=== PATIENT | female | born 1950 | race Caucasian/White ===

== ENCOUNTER → 2016-05-26 | Outpatient (CLI) | payer MEDICARE ==
--- NOTE | 2016-05-26 09:58 | XR ---
EXAMINATION TYPE: XR chest 2V DATE OF EXAM: 05/26/2016 9:51 AM COMPARISON: NONE HISTORY: COPD per order. TECHNIQUE: Frontal and lateral views of the chest are obtained. FINDINGS: Underlying emphysematous change is present. There is no focal air space opacity, pleural e ffusion, or pneumothorax seen. The cardiac silhouette size is upper limits of normal. The osseous structures are demineralized. Mild multilevel height loss midthoracic vertebra is felt present. Numer ous clips left axillary region are noted. IMPRESSION: Chronic emphysematous change without acute pulmonary process.
--- NOTE | 2016-05-26 11:49 | BD ---
EXAMINATION TYPE: MG DEXA axial skeleton. DATE OF EXAM: 05/26/2016 10:35 AM COMPARISON: CLINICAL HISTORY: Height: 63 Weight: 148.5 FRAX RISK QUESTIONS: Alcohol (3 or more units per day): no Family History (Parent hip fracture): no Glucocorticoids (More than 3mos): no (Ex: prednisone, prednisolone, methylprednisolone, dexamethasone, and hydrocortisone). History of Fracture in Adulthood: yes; wrist & ribs Secondary Osteoporosis: 1. Type 1 Diabetes: no 2. Hyperthyroidism: no 3. Menopause before 45: yes 4. Malnutrition: no 5. Chronic liver disease: no Rheumatoid Arthritis: yes Current Tobacco Use: yes RISK FACTORS HISTORY OF: History of Wrist Fracture: yes When: about 33 years ago Other Fractures : ribs When: about 12 years ago Family History of Osteoporosis: no Drink Alcohol: no Active: somewhat Diet low in dairy products/other sources of calcium: no Postmenopausal woman: yes Take estrogen and/or progesterone medications: no Lost more than 2 inches in height since high school: states was perhaps 65 inches tall at one time Frequent falls: no Poor Health: no Hyperparathyroidism: no Adrenal Insufficiency: no MEDICATIONS: Prednisone or other steroids: no Thyroid Medications: no Osteoporosis Medications: no Additional Medications: calcium & vitamin D Additional History: overactive thyroid-had radioactive iodine treatment, right left shorter than left : hip displacement-due to truck pinning patient by a wall 1985; breat [place] history EXAM MEASUREMENTS: Bone mineral densitometry was performed using the [employer] System. Bone mineral density as measured about the Lumbar spine is: ----- L1-L4(G/cm2): 0.771 T Score Values are as follows: ----- L2: -3.7 ----- L3: -3.7 ----- L4: -3.4 ----- L1-L4: -3.4 Bone mineral density BASELINE Bone mineral density about the R hip (g/cm2): 0.592 Bone mineral density about the L hip (g/cm2): 0.617 T Score values are as follows: -----R Neck: -3.2 -----L Neck: -3.0 -----R Intertrochanter: -3.9 -----L Intertrochanter: -3.1 Bone mineral density BASELINE IMPRESSION: Osteoporosis (T Score less than -2.5) as noted by T Score values at the Lumbar Spine & Bilateral Hip s. There is increased fracture risk and therapy is usually indicated based on age. Re-Screen 1-2 year s. NOTE: T-SCORE=SD OF THE YOUNG ADULT MEAN.
== END | disposition home or self-care (01) ==
LOC: RADBDWWP 09:37
PROVIDERS: ATTEND Family Medicine
DX: M81.0 Age-related osteoporosis without current pathological fracture (principal); M19.90 Unspecified osteoarthritis, unspecified site; J44.0 Chronic obstructive pulmonary disease with (acute) lower respiratory infection
CPT/HCPCS: 71020; 77080

== ENCOUNTER → 2016-11-23 | Outpatient (CLI) | payer MEDICARE ==
--- NOTE | 2016-11-23 12:06 | XR ---
EXAMINATION TYPE: XR foot complete RT DATE OF EXAM: 11/23/2016 CLINICAL HISTORY: pain TECHNIQUE: Frontal, lateral and oblique images of the right foot are obtained. COMPARISON: None. FINDINGS: Minimally displaced fracture involving the base of the proximal phalanx right great toe wit h intra-articular extension. No additional fractures are identified. Soft tissue swelling is noted. T he joint spaces appear within normal limits. The overlying soft tissue appears unremarkable. IMPRESSION: Minimally displaced fracture involving the base of the proximal phalanx right great toe with intra-ar ticular extension. ICD 10 closed FRACTURE, INITIAL EVALUATION
== END | disposition home or self-care (01) ==
LOC: RADXRMAIN 11:33
PROVIDERS: ATTEND Family Medicine
DX: S92.411A Displaced fracture of proximal phalanx of right great toe, initial encounter for closed fracture (principal)

== ENCOUNTER 2017-07-30 18:00 | Observation (INO) | payer MEDICARE ==
[2017-07-30] MEDS ORDERED: KETOROLAC 30 MG/ML 1 ML VIAL IVP STA (18:24)
[2017-07-30] MEDS ORDERED: IPRATROPIUM-ALBUTEROL 3 ML NEB INHALATION STA (18:28)
--- NOTE | 2017-07-30 18:28 | ED ---
Chest Pain HPI - General Source: patient, RN notes reviewed Mode of arrival: wheelchair Limitations: no limitations - History of Present Illness MD Complaint: chest pain <Claudio Oconnor - Last Filed: 07/30/17 18:55> <Pat Buchanan - Last Filed: 07/30/17 20:43> - General Chief Complaint: Chest Pain Stated Complaint: Chest pain, RICHARD Time Seen by Provider: 07/30/17 18:15 - History of Present Illness Initial Comments: This is a 59-year-old female with a history of left mastectomy with No dissection years ago for breast cancer who also is a smoker who presents with complaints of one month of lower sternal chest pain which is much worse today she states is 8 and 9/10 severity does get worse with movement and deep breathing he is somewhat short of breath she has a fevers chills or sweats. No overt weakness to her upper or lower extremities no fevers chills sweats no other symptoms reported at this time. No cough or phlegm production. No other modifying factors at this time patient states she has problems with aspirin that she bleeds easily when she is able take Aleve and other NSAIDs. (Claudio Oconnor) - Related Data Home Medications Medication Instructions Recorded Confirmed Gabapentin [Neurontin] 300 mg PO TID 07/30/17 07/30/17 LORazepam [Ativan] 0.5 mg PO HS 07/30/17 07/30/17 Letrozole [Femara] 2.5 mg PO DAILY 07/30/17 07/30/17 amLODIPine [Norvasc] 10 mg PO DAILY 07/30/17 07/30/17 Allergies Allergy/AdvReac Type Severity Reaction Status Date / Time aspirin Allergy Unknown Verified 07/30/17 19:08 Penicillins Allergy Unknown Verified 07/30/17 18:50 tetanus and diphtheria Allergy Unknown Verified 07/30/17 18:50 toxoids Review of Systems ROS Other: All systems not noted in ROS Statement are negative. <Claudio Oconnor - Last Filed: 07/30/17 18:55> ROS Other: All systems not noted in ROS Statement are negative. <Pat Buchanan - Last Filed: 07/30/17 20:43> ROS Statement: Those systems with pertinent positive or pertinent negative responses have been documented in the HPI. EKG Findings - EKG Results: EKG: interpreted by ERMD, sinus rhythm (Sinus rhythm with sinus arrhythmia the rate was 89 OH interval 126 QRS duration 92 QT since QTC of 374/[address]-T wave changes) <Claudio Oconnor - Last Filed: 07/30/17 18:55> Past Medical History Past Medical History: Cancer, Hypertension Additional Past Medical History / Comment(s): breast ca neuropathy History of Any Multi-Drug Resistant Organisms: None Reported Past Surgical History: Breast Surgery Past Psychological History: No Psychological Hx Reported Smoking Status: Current every day smoker Past Alcohol Use History: None Reported Past Drug Use History: None Reported <Claudio Oconnor - Last Filed: 07/30/17 18:55> General Exam Limitations: no limitations General appearance: alert, anxious Head exam: Present: atraumatic, normocephalic, normal inspection Eye exam: Present: normal appearance, PERRL, EOMI. Absent: scleral icterus, conjunctival injection, periorbital swelling ENT exam: Present: normal exam, mucous membranes moist Neck exam: Present: normal inspection. Absent: tenderness, meningismus, lymphadenopathy Respiratory exam: Present: chest wall tenderness (Reproducible tenderness on the left costochondral margin and xiphoid. No step-off or crepitation.), decreased breath sounds. Absent: respiratory distress, wheezes, rales, rhonchi , stridor Cardiovascular Exam: Present: regular rate, normal rhythm, normal heart sounds. Absent: systolic murmur, diastolic murmur, rubs, gallop, clicks GI/Abdominal exam: Present: soft, normal bowel sounds. Absent: distended, tenderness, guarding, rebound, rigid Extremities exam: Present: normal inspection, full ROM, normal capillary refill. Absent: tenderness, pedal edema, joint swelling, calf tenderness Back exam: Present: normal inspection Neurological exam: Present: alert, oriented X3, CN II-XII intact Psychiatric exam: Present: normal affect, normal mood Skin exam: Present: warm, dry, intact, normal color. Absent: rash <Claudio Oconnor - Last Filed: 07/30/17 18:55> <Pat Buchanan - Last Filed: 07/30/17 20:43> - General Exam Comments Initial Comments: This is a well-developed well-nourished awake alert oriented 3 female (Elvin Claudio) Course <Claudio Oconnor - Last Filed: 07/30/17 18:55> <Pat Buchanan - Last Filed: 07/30/17 20:43> Vital Signs 07/30/17 07/30/17 07/30/17 18:04 18:51 19:03 Temperature 97.3 F L Pulse Rate 94 78 84 Respiratory 18 Rate Blood Pressure 185/79 O2 Sat by Pulse 97 Oximetry H and was reassessed, white count is slightly elevated 12.9, d-dimer is negative amylase is 118 lipase is 399 troponin is negative blood pressure is 185 /77 considering her multiple risk factors including her age and hypertension and smoking she will COME in for 3 sets of cardiac markers and cardiology consult and now mild pancreatitis will do inpatient ultrasound of the pancreas as well as the liver patient be admitted under angelo Puente service (Pat Buchanan ) - Reevaluation(s) Reevaluation #1: 07/30/17 18:55 The patient's care will be endorsed to Dr. Buchanan at our shift change at 7 PM ( Claudio Oconnor) Disposition <Claudio Oconnor - Last Filed: 07/30/17 18:55> <Pat Buchanan - Last Filed: 07/30/17 20:43> Clinical Impression: Chest pain, Pancreatitis Disposition: ADMITTED IP TO THIS HOSP Condition: Good Referrals: Elvin Mcclain DO [Primary Care Provider] - 1-2 days
[2017-07-30 18:48] LABS: Basophils # (A) 0.1 k/uL (0-0.2); Basophils % (A) 1 %; Eosinophils # (A) 0.2 k/uL (0-0.7); Eosinophils % (A) 2 %; HGB 13.7 gm/dL (11.4-16.0); Lymphocytes # (A) 3.6 k/uL (1.0-4.8); Lymphocytes % (A) 28 %; MCH 28.3 pg (25.0-35.0); MCHC 32.7 g/dL (31.0-37.0); MCV 86.5 fL (80.0-100.0); Mean Platelet Volume 6.3; Monocytes # (A) 0.8 k/uL (0-1.0); Monocytes % (A) 6 %; Neutrophils % (A) 62 %; Platelet Count 425 k/uL (150-450); RBC 4.85 m/uL (3.80-5.40); RDW 15.3 % (11.5-15.5); WBC 12.9 k/uL (3.8-10.6)
[2017-07-30 18:57] LABS: ALT 21 U/L (9-52); AST 16 U/L (14-36); Albumin 4.4 g/dL (3.5-5.0); Alkaline Phosphatase 90 U/L (38-126); Amylase 118 U/L (30-110); Anion Gap 14 mmol/L; Blood Urea Nitrogen 16 mg/dL (7-17); Calcium 9.9 mg/dL (8.4-10.2); Carbon Dioxide 24 mmol/L (22-30); Chloride 105 mmol/L (98-107); Glucose 106 mg/dL (74-99); Lipase 399 U/L (23-300); Magnesium 1.9 mg/dL (1.6-2.3); Potassium 3.8 mmol/L (3.5-5.1); Sodium 143 mmol/L (137-145); Total Bilirubin 0.3 mg/dL (0.2-1.3); Total Protein 7.1 g/dL (6.3-8.2)
[2017-07-30 19:02] LABS: D-Dimer 0.39 mg/L FEU (<0.60); Partial Thromboplastin Time 23.6 sec (22.0-30.0); Prothrombin Time 9.5 sec (9.0-12.0)
[2017-07-30 19:10] LABS: Creatine Kinase 34 U/L (30-135)
[2017-07-30 19:20] LABS: Creatine Kinase MB 0.4 ng/mL (0.0-2.4)
[2017-07-30 19:24] LABS: Troponin I <0.012 ng/mL (0.000-0.034)
--- NOTE | 2017-07-30 20:26 | XR ---
EXAMINATION TYPE: XR chest 2V DATE OF EXAM: 07/30/2017 COMPARISON: 05/26/2016 HISTORY: 67-year-old female with chest pain TECHNIQUE: AP and lateral views FINDINGS: The heart is normal size. Aorta within normal limits. Mild diffuse interstitial prominence. Multiple surgical clips at the left axilla. Hyperinflation with flattening of the hemidiaphragms. No consolida tion or pleural effusion. IMPRESSION: COPD. No acute process seen.
[2017-07-30] MEDS ORDERED: NITROGLYCERIN SL TABS 0.4 MG TAB SUBLINGUAL PRN (20:44)
[2017-07-30] MEDS ORDERED: MORPHINE SULFATE 4 MG/0.8 ML SYRINGE (INJ) IVP PRN (20:44)
[2017-07-30] MEDS ORDERED: NICOTINE 21MG/24HR PATCH TRANSDERM STA (20:46)
[2017-07-30] MEDS ORDERED: ATORVASTATIN 40 MG TAB PO SCH (21:00)
[2017-07-30] MEDS ORDERED: LORazepam 0.5 MG TAB PO SCH (21:00)
[2017-07-30 21:53] VITALS: BMI 23.1
[2017-07-30] MEDS: GABAPENTIN 300 MG CAP PO SCH (22:19)
[2017-07-31 01:57] LABS: Creatine Kinase 27 U/L (30-135)
[2017-07-31 01:58] LABS: Cholesterol 194 mg/dL (<200); HDL Cholesterol 52 mg/dL (40-60); LDL Cholesterol,Calculated 127 mg/dL (0-99); Triglycerides 73 mg/dL (<150)
[2017-07-31 02:09] LABS: Creatine Kinase MB 0.3 ng/mL (0.0-2.4); Troponin I <0.012 ng/mL (0.000-0.034)
[2017-07-31 07:35] LABS: Creatine Kinase 29 U/L (30-135)
[2017-07-31 07:47] LABS: Creatine Kinase MB <0.2 ng/mL (0.0-2.4); Troponin I <0.012 ng/mL (0.000-0.034)
--- NOTE | 2017-07-31 08:11 | US ---
EXAMINATION TYPE: US abdomen limited DATE OF EXAM: 07/31/2017 COMPARISON: NONE CLINICAL HISTORY: pain in the Epigastric area. EXAM MEASUREMENTS: Liver Length: 15.4 cm Gallbladder Wall: 0.1 cm CBD: 0.3 cm Right Kidney: 11.5 x 3.8 x 5.3 cm Limited due to bowel gas. Pancreas: wnl Liver: wnl Gallbladder: Echogenic foci along lumen wall likely a polyp measuring 0.5 x 0.3 x 0.3 cm Evidence for sonographic Amor's sign: No CBD: wnl Right Kidney: wnl Limited views of the pancreas are normal. The liver is normal in size without biliary dilatation. There is a 5 mm polyp within the gallbladder. There is no evidence of cholelithiasis. The gallbladder wall measures 1.4 mm. The distal common hepatic duct measures 3.4 mm. The right kidney is normal. IMPRESSION: PROBABLE GALLBLADDER POLYP.
--- NOTE | 2017-07-31 08:55 | P.CRDCN ---
History of Present Illness Consult date: 07/31/17 Requesting physician: Diego Serrano Consult reason: chest pain Chief complaint: Chest pain History of present illness: This is a 67-year-old female with history of recent hypertension diagnosis, nondiabetic, no hyperlipidemia, nicotine dependence, family history of premature coronary artery disease, prior history of breast cancer 11 years ago who presents to the hospital with symptoms of chest pain. According to the patient she's been experiencing intermittent pain in her chest for the past one to 2 months. Pain worsens significantly when the patient takes a deep breath. She denies any associated nausea or diaphoresis. EKG on arrival here shows a normal sinus rhythm with no acute changes. Chest x-ray shows COPD. Ultrasound of the abdomen and gallbladder was performed which revealed a probable gallbladder polyp. No evidence of cholelithiasis. Blood pressure 130/70, heart rate in the 70s, 95% on room air. White blood cell count on admission 12.9, hemoglobin 13.7, platelet count 425. D-dimer 0.39. Sodium 143, potassium 3.8, BUN 16, creatinine 0.6. Troponins are negative 3, BNP level 208 , cholesterol 194, LDL 127, triglycerides 73, HDL 52. AST and ALT are normal. Amylase 118, lipase 399. At the time of my examination this morning, patient continues to have sharp stabbing chest pain, but only when she takes a deep breath. Past Medical History Past Medical History: Cancer, Hypertension Additional Past Medical History / Comment(s): breast ca neuropathy History of Any Multi-Drug Resistant Organisms: None Reported Past Surgical History: Breast Surgery, Hysterectomy Past Anesthesia/Blood Transfusion Reactions: No Reported Reaction Past Psychological History: No Psychological Hx Reported Smoking Status: Current every day smoker Past Alcohol Use History: None Reported Past Drug Use History: None Reported Medications and Allergies Home Medications Medication Instructions Recorded Confirmed Type Gabapentin [Neurontin] 300 mg PO TID 07/30/17 07/30/17 History LORazepam [Ativan] 0.5 mg PO HS 07/30/17 07/30/17 History Letrozole [Femara] 2.5 mg PO DAILY 07/30/17 07/30/17 History amLODIPine [Norvasc] 10 mg PO DAILY 07/30/17 07/30/17 History Allergies Allergy/AdvReac Type Severity Reaction Status Date / Time aspirin Allergy Unknown Verified 07/30/17 19:08 Penicillins Allergy Unknown Verified 07/30/17 18:50 tetanus and diphtheria Allergy Unknown Verified 07/30/17 18:50 toxoids Physical Exam Vitals: Vital Signs Temp Pulse Pulse Resp BP BP Pulse Ox 07/31/17 04:00 98.5 F 77 18 132/71 95 07/31/17 02:20 98.3 F 66 16 135/72 97 07/30/17 22:44 84 16 07/30/17 21:30 97.8 F 94 16 144/74 95 07/30/17 20:52 91 16 142/81 95 07/30/17 19:03 84 07/30/17 18:51 78 07/30/17 18:04 97.3 F L 94 18 185/79 97 Intake and Output 07/30/17 07/31/17 07/31/17 22:59 06:59 14:59 Other: Voiding Method Toilet Toilet # Voids 1 1 Weight 61.1 kg 61.1 kg PHYSICAL EXAMINATION: HEENT: Head is atraumatic, normocephalic. Pupils equal, round. Neck is supple. There is no elevated jugular venous pressure. Bilateral carotid bruits are audible. HEART EXAMINATION: Heart S1, S2 soft systolic murmur is heard. CHEST EXAMINATION: Lungs are clear to auscultation and precussion. No chest wall tenderness is noted on palpation or with deep breathing. ABDOMEN: Soft, mild tenderness at the xiphoid area. Bowel sounds are heard. No organomegaly noted. EXTREMITIES: 2+ peripheral pulses with trace evidence of peripheral edema and no calf tenderness noted. NEUROLOGIC patient is awake, alert and oriented -3. . Results 07/30/17 18:37 07/30/17 18:37 Cardiac Enzymes 07/30/17 07/30/17 07/31/17 Range/Units 18:37 18:37 01:11 AST 16 (14-36) U/L CK-MB (CK-2) 0.4 0.3 (0.0-2.4) ng/mL Troponin I <0.012 <0.012 (0.000-0.034) ng/mL 07/31/17 Range/Units 06:19 AST (14-36) U/L CK-MB (CK-2) <0.2 (0.0-2.4) ng/mL Troponin I <0.012 (0.000-0.034) ng/mL Coagulation 07/30/17 Range/Units 18:37 PT 9.5 (9.0-12.0) sec APTT 23.6 (22.0-30.0) sec Lipids 07/31/17 Range/Units 01:11 Triglycerides 73 (<150) mg/dL Cholesterol 194 (<200) mg/dL HDL Cholesterol 52 (40-60) mg/dL CBC 07/30/17 Range/Units 18:37 WBC 12.9 H (3.8-10.6) k/uL RBC 4.85 (3.80-5.40) m/uL Hgb 13.7 (11.4-16.0) gm/dL Hct 42.0 (34.0-46.0) % Plt Count 425 (150-450) k/uL Comprehensive Metabolic Panel 07/30/17 Range/Units 18:37 Sodium 143 (137-145) mmol/L Potassium 3.8 (3.5-5.1) mmol/L Chloride 105 (98-107) mmol/L Carbon Dioxide 24 (22-30) mmol/L BUN 16 (7-17) mg/dL Creatinine 0.60 (0.52-1.04) mg/dL Glucose 106 H (74-99) mg/dL Calcium 9.9 (8.4-10.2) mg/dL AST 16 (14-36) U/L ALT 21 (9-52) U/L Alkaline Phosphatase 90 (38-126) U/L Total Protein 7.1 (6.3-8.2) g/dL Albumin 4.4 (3.5-5.0) g/dL Current Medications Generic Name Dose Route Start Last Admin Trade Name Freq PRN Reason Stop Dose Admin Amlodipine Besylate 10 mg 07/31/17 09:00 Norvasc PO DAILY [facility] Atorvastatin Calcium 40 mg 07/30/17 21:00 07/30/17 22:19 Lipitor PO Not Given HS MALA Gabapentin 300 mg 07/30/17 22:00 07/30/17 22:19 Neurontin PO Not Given TID MALA Letrozole 2.5 mg 07/31/17 09:00 Femara PO DAILY MALA Lisinopril 10 mg 07/31/17 09:00 Zestril PO DAILY MALA Lorazepam 0.5 mg 07/30/17 21:00 07/30/17 22:18 Ativan PO 0.5 mg HS MALA Administration Morphine Sulfate 2 mg 07/30/17 20:44 Morphine Sulfate (Inj) IVP Q5M PRN Chest Pain Nitroglycerin 0.4 mg 07/30/17 20:44 Nitrostat SUBLINGUAL Q5M PRN Chest Pain Intake and Output 07/30/17 07/31/17 07/31/17 22:59 06:59 14:59 Other: Voiding Method Toilet Toilet # Voids 1 1 Weight 61.1 kg 61.1 kg 07/30/17 18:37 07/30/17 18:37 EKG Interpretations (text) EKG shows a normal sinus rhythm with no acute changes. Assessment and Plan Plan: Assessment and plan #1 chest pain, pleuritic in nature, atypical for acute coronary syndrome. Troponins are negative 3. EKG shows normal sinus rhythm with no acute changes. D-dimer negative. #2 hypertension, recently diagnosed, patient started on Norvasc #3 nicotine dependence #4 history of breast cancer 11 years ago #5 cardiac risk factors negative for diabetes or hyperlipidemia #6 family history of premature coronary artery disease in her brother and father. Plan We will obtain an echocardiogram with Doppler study. He recommended the patient undergo stress test in the morning to rule out underlying coronary artery disease, pacemaker. Pleuritic in nature atypical for ACS. Further recommendations to follow. DNP note has been reviewed, I agree with a documented findings and plan of care. Patient was seen and examined.
[2017-07-31 08:56] VITALS: BP 127/67; PULSE 76; RESP 14; TEMP 98.1
[2017-07-31] MEDS ORDERED: LISINOPRIL 10 MG TAB PO SCH (09:00)
[2017-07-31] MEDS ORDERED: amLODIPine 10 MG TAB PO SCH (09:00)
[2017-07-31] MEDS ORDERED: LETROZOLE 2.5 MG TAB PO SCH (09:00)
[2017-07-31] MEDS: GABAPENTIN 300 MG CAP PO SCH (10:00)
--- NOTE | 2017-07-31 10:12 | P.HPIM ---
History of Present Illness H&P Date: 07/31/17 Chief Complaint: chest pain. This is a history and physical and discharge summary. This is a 67-year-old female one of Dr. Mcclain with a previous medical history significant for hypertension and hypertensive cardio vascular disease with left ventricular hypertrophy, history of breast cancer that was diagnosed back in 2006 status post a left mastectomy with lymph node dissection followed by chemotherapy at that time, history of chronic tobacco use and dependence, patient presented to the emergency department at [facility] yesterday because of severe pain in the chest radiated to the back associated with breathing patient stated that she's been having this pain on and off for the past 2 months, and the she used to have pain around her sternum and she is to go to the chiropractor to fix that however this time the pain was severe she ended up coming to the ER for evaluation had a twelve-lead EKG that showed no acute abnormalities normal sinus rhythm without any acute ST-T wave changes, cardiac enzymes are negative, she was seen and evaluated by cardiology was recommended for the patient to be discharged home and follow-up as an outpatient to have a stress test at their office, patient underwent ultrasound of the abdomen since her amylase and lipase were slightly elevated and that did not show any evidence of acute of normalities except for a polyp, I have recommended for the patient to go for a CT of the abdomen and pelvis with contrast as an outpatient for further evaluation of her mild elevation of amylase and lipase to rule out any pancreatic abnormalities. Review of Systems Constitutional: Denies anorexia, Denies chronic headaches, Denies lethargy, Denies weight gain, Denies weight loss Eyes: denies blurred vision Ears: deny: decreased hearing Ears, nose, mouth and throat: Denies dysphagia, Denies neck lump, Denies swelling in throat, Denies sore throat Breasts: left: as per HPI Cardiovascular: Reports chest pain, Reports decreased exercise tolerance, Reports dyspnea on exertion, Reports high blood pressure, Reports shortness of breath, Denies rapid heart beat, Denies syncope Respiratory: Denies congestion, Denies cough with sputum, Denies home oxygen, Denies sleep apnea, Denies snoring, Denies wheezing Gastrointestinal: Reports abdominal pain, Reports bloating, Reports heartburn, Denies excessive gas, Denies melena, Denies nausea, Denies vomiting Genitourinary: Denies dysuria, Denies hematuria Menstruation: Reports post hysterectomy, Reports postmenopausal Musculoskeletal: Denies myalgias Musculoskeletal: absent: ankle pain, ankle stiffness, ankle swelling, elbow pain , elbow stiffness, elbow swelling, foot pain, foot stiffness, foot swelling, hand pain, hand stiffness, hand swelling, hip pain, hip stiffness, hip swelling , knee pain, knee stiffness, knee swelling, shoulder pain, shoulder stiffness, shoulder swelling, wrist pain, wrist stiffness, wrist swelling Integumentary: Denies pruritus, Denies rash Neurological: Denies numbness, Denies weakness Psychiatric: Denies anxiety, Denies depression Endocrine: Denies fatigue, Denies weight change Past Medical History Past Medical History: Cancer, Hypertension, Osteoarthritis (OA) Additional Past Medical History / Comment(s): Breast cancer 2007 status post left mastectomy with lymph node dissection. History of Any Multi-Drug Resistant Organisms: None Reported Past Surgical History: Breast Surgery, Hysterectomy Past Anesthesia/Blood Transfusion Reactions: No Reported Reaction Past Psychological History: No Psychological Hx Reported Smoking Status: Current every day smoker (patient smokes about a pack and half a day she started smoking when she was a teenager, she is to drink however she quit many years ago.) Past Alcohol Use History: None Reported Past Drug Use History: None Reported - Past Family History Mother Family Medical History: Cancer (mother at age of 76 from breast cancer with metastatic disease to the bone and brain.) Father Family Medical History: Myocardial Infarction ([place]) (father at age of 73 from myocardial infarction.) Brother(s) Family Medical History: Myocardial Infarction ([place]) (patient had 3 brothers one of them with an [place] still alive the other one is healthy the third one emitted suicide.) Sister(s) Family Medical History: Hypertension (patient has 3 sisters with hypertension.) Daughter(s) Family Medical History: No Reported History (patient has a daughter no major medical problems.) Medications and Allergies Home Medications Medication Instructions Recorded Confirmed Type Gabapentin [Neurontin] 300 mg PO TID 07/30/17 07/30/17 History LORazepam [Ativan] 0.5 mg PO HS 07/30/17 07/30/17 History Letrozole [Femara] 2.5 mg PO DAILY 07/30/17 07/30/17 History amLODIPine [Norvasc] 10 mg PO DAILY 07/30/17 07/30/17 History Allergies Allergy/AdvReac Type Severity Reaction Status Date / Time aspirin Allergy Unknown Verified 07/30/17 19:08 Penicillins Allergy Unknown Verified 07/30/17 18:50 tetanus and diphtheria Allergy Unknown Verified 07/30/17 18:50 toxoids Physical Exam Vitals: Vital Signs Temp Pulse Pulse Resp BP BP Pulse Ox 07/31/17 04:00 98.5 F 77 18 132/71 95 07/31/17 02:20 98.3 F 66 16 135/72 97 07/30/17 22:44 84 16 07/30/17 21:30 97.8 F 94 16 144/74 95 07/30/17 20:52 91 16 142/81 95 07/30/17 19:03 84 07/30/17 18:51 78 07/30/17 18:04 97.3 F L 94 18 185/79 97 Intake and Output 07/30/17 07/31/17 07/31/17 22:59 06:59 14:59 Other: Voiding Method Toilet Toilet # Voids 1 1 Weight 61.1 kg 61.1 kg - Constitutional General appearance: no acute distress, thin - EENT Eyes: anicteric sclerae, EOMI, PERRLA, no ptosis, no scleral icterus, normal appearance ENT: hearing grossly normal, NA/AT, normal oropharynx, no thrush Ears: bilateral: normal - Neck Neck: no lymphadenopathy, normal ROM, no rigidity, no stridor, no thyromegaly Carotids: bilateral: upstroke delayed Thyroid: bilateral: normal size - Respiratory Respiratory: bilateral: diminished, negative: dullness, rales, rhonchi, wheezing , prolonged expiration - Cardiovascular Rhythm: regular Heart sounds: normal: S1, S2 Abnormal Heart Sounds: systolic murmur, no S3 Gallop, no S4 Gallop - Gastrointestinal General gastrointestinal: normal bowel sounds, soft, tenderness (epigastric area and no rebound or guarding has a bowel sounds.), no umbilical hernia, no ventral hernia - Integumentary Integumentary: normal, normal turgor - Neurologic Neurologic: CNII-XII intact - Musculoskeletal Musculoskeletal: strength equal bilaterally - Psychiatric Psychiatric: A&O x's 3, appropriate affect, intact judgment & insight Results CBC & Chem 7: 07/30/17 18:37 07/30/17 18:37 Labs: Abnormal Lab Results - Last 24 Hours (Table) 07/30/17 07/30/17 07/31/17 Range/Units 18:37 18:37 01:11 WBC 12.9 H (3.8-10.6) k/uL Neutrophils # 8.0 H (1.3-7.7) k/uL Glucose 106 H (74-99) mg/dL Total Creatine Kinase 27 L (30-135) U/L LDL Cholesterol, Calc (0-99) mg/dL Amylase 118 H (30-110) U/L Lipase 399 H (23-300) U/L 07/31/17 Range/Units 01:11 WBC (3.8-10.6) k/uL Neutrophils # (1.3-7.7) k/uL Glucose (74-99) mg/dL Total Creatine Kinase (30-135) U/L LDL Cholesterol, Calc 127 H (0-99) mg/dL Amylase (30-110) U/L Lipase (23-300) U/L Thrombosis Risk Factor Assmnt - DVT/VTE Prophylaxis DVT/VTE Prophylaxis: Mechanical Prophylaxis ordered - Choose All That Apply Each Risk Factor Represents 2 Points: Age 61-74 years Thrombosis Risk Factor Assessment Total Risk Factor Score: 2 Thrombosis Risk Factor Assessment Level: Low Risk Assessment and Plan Assessment: Assessment and plan: 1. Chest pain noncardiac appears to be pleuritic in nature, patient does have significant risk factor for CAD him a including premature coronary artery disease, tobacco use and dependence, hypertension, she was advised to follow-up with cardiology as an outpatient in one week to have a stress test since her EKG is normal and cardiac enzymes are negative, patient is to quit smoking since the smoking increased risk of CAD, CVA and malignancy. 2. Mild elevation of amylase and lipase. Ultrasound of the abdomen showed a polyp of the gallbladder, this does not explain the mild elevation of amylase and lipase, recommended for the patient to go for computed tomography scan of the abdomen and pelvis with contrast as an outpatient through Dr. Mcclain's office. 3. Hypertension and hypertensive cardio vascular disease. Continue amlodipine 10 mg orally once every day. 4. History of breast cancer status post chemotherapy and surgery. Continue Letrozol. 5. Peripheral neuropathy. Continue gabapentin. 6. Patient is stable for discharge home as to follow-up with a primary care physician and outpatient in 1-2 days cardiology in 1-2 weeks and she is to have computed tomography scan of the abdomen and pelvis with contrast for further evaluation of her pancreas.
== END 2017-07-31 10:45 | disposition home or self-care (01) ==
LOC: EC 18:00 → 3OBS 20:48
PROVIDERS: ADMIT Internal Medicine; ATTEND Internal Medicine
DX: R07.81 Pleurodynia (principal); K85.90 Acute pancreatitis without necrosis or infection, unspecified; F17.210 Nicotine dependence, cigarettes, uncomplicated; K82.4 Cholesterolosis of gallbladder; G62.9 Polyneuropathy, unspecified; J44.9 Chronic obstructive pulmonary disease, unspecified; I11.9 Hypertensive heart disease without heart failure; Z79.899 Other long term (current) drug therapy; Z80.3 Family history of malignant neoplasm of breast; Z80.8 Family history of malignant neoplasm of other organs or systems; Z90.710 Acquired absence of both cervix and uterus; Z90.12 Acquired absence of left breast and nipple; Z85.3 Personal history of malignant neoplasm of breast; Z92.21 Personal history of antineoplastic chemotherapy; Z82.49 Family history of ischemic heart disease and other diseases of the circulatory system
CPT/HCPCS: 96374; 99285; 36415; 94640; 85379; 83880; 80061; 80053; 82150; 82550 ×2; 82553 ×2; 83690; 83735; 84484 ×2; 85025; 85610; 85730; 71046; 76705; G0378 ×2; S4990; J1885

== ENCOUNTER → 2017-08-22 | Outpatient (CLI) | payer MEDICARE ==
--- NOTE | 2017-08-22 16:16 | NM ---
EXAMINATION TYPE: NM hepatobiliary w EF DATE OF EXAM: 08/22/2017 COMPARISON: Ultrasound abdomen 07/31/2017 HISTORY: Epigastric pain TECHNIQUE: After the intravenous administration of 5.25 mCi Tc 99m Mebrofenin hepatobiliary scintigra phy is performed. Immediate images post injection. FINDINGS: There is satisfactory initial accumulation of tracer by the liver. The gallbladder is visualized wit hin 24 minutes. The small bowel activity is noted within 10 minutes. At one hour 8 ounces of oral e nsure plus is given to mimic CCK and gallbladder ejection fraction is calculated at 7 %, abnormal low . Therefore there is no scintigraphic evidence of cystic or common bile duct obstruction to suggest acute cholecystitis. IMPRESSION: Abnormal low gallbladder ejection fraction
--- NOTE | 2017-08-22 16:44 | US ---
EXAMINATION TYPE: US axilla LT DATE OF EXAM: 08/22/2017 COMPARISON: NONE CLINICAL HISTORY: 67-year-old female M79.62 AXILLARY PAIN. Hx of left mastectomy in 2000. Patient sta urbano pain since drain removed. TECHNIQUE: Multiple sonographic images of the left axilla along the site of patient's pain. FINDINGS: [employer]er notes: Scanned entire left axilla, no abnormality noted. Review of the images shows no solid or cystic lesion or lymphadenopathy. IMPRESSION: No specific sonographic abnormality identified in the left axilla.
== END | disposition home or self-care (01) ==
LOC: RADNMMAIN 12:45
PROVIDERS: ATTEND Family Medicine
DX: K82.8 Other specified diseases of gallbladder (principal); K81.9 Cholecystitis, unspecified; M79.672 Pain in left foot
CPT/HCPCS: 76882; 78226; A9537

== ENCOUNTER 2017-10-17 12:31 | Observation (INO) | payer MEDICARE ==
[2017-10-17] MEDS ORDERED: SODIUM CHLORIDE 0.9% 1,000 ML IV STA (13:55)
[2017-10-17] MEDS ORDERED: METOCLOPRAMIDE 5 MG/ML 2 ML VIAL IVP STA (13:55)
[2017-10-17] MEDS ORDERED: FAMOTIDINE 20 MG/2 ML VIAL IV STA (13:56)
--- NOTE | 2017-10-17 14:01 | ED ---
General Adult HPI - General Chief complaint: Abdominal Pain Stated complaint: can't eat, weakness Time Seen by Provider: 10/17/17 13:48 Source: patient, family, RN notes reviewed Mode of arrival: wheelchair Limitations: no limitations - History of Present Illness Initial comments: Patient is a pleasant 67-year-old female presenting to the emergency Department with complaints of abdominal discomfort. Symptoms have been present for the past couple of months. Patient has had several evaluations for this. Patient did see her doctor today who advised to come to the emergency department and states she will need a scope done. Patient has seen a surgeon for this and [place] who stated he was not surgical. Patient also was at an ER there and had a computed tomography scan reported as normal. Patient has also had ultrasound of the gallbladder reported as normal. Patient did have a HIDA scan done showing low ejection fraction and 7%. Patient has had decreased appetite and decreased oral intake especially the past few weeks. Patient has loss approximate 7 pounds. Patient has nausea without vomiting. Discomfort is in the epigastric region. At one point patient was told her pancreatic enzymes were elevated. No constipation or diarrhea. - Related Data Home Medications Medication Instructions Recorded Confirmed Gabapentin [Neurontin] 300 mg PO TID 07/30/17 10/17/17 LORazepam [Ativan] 0.5 mg PO HS 07/30/17 10/17/17 Letrozole [Femara] 2.5 mg PO DAILY 07/30/17 10/17/17 amLODIPine [Norvasc] 10 mg PO DAILY 07/30/17 10/17/17 Allergies Allergy/AdvReac Type Severity Reaction Status Date / Time aspirin Allergy Unknown Verified 10/17/17 14:03 Penicillins Allergy Unknown Verified 10/17/17 14:03 tetanus and diphtheria Allergy Unknown Verified 10/17/17 14:03 toxoids Review of Systems ROS Statement: Those systems with pertinent positive or pertinent negative responses have been documented in the HPI. ROS Other: All systems not noted in ROS Statement are negative. Constitutional: Denies: fever Eyes: Denies: eye pain ENT: Denies: ear pain Respiratory: Denies: cough Cardiovascular: Denies: chest pain Endocrine: Denies: fatigue Gastrointestinal: Reports: abdominal pain, nausea. Denies: vomiting, diarrhea, constipation Genitourinary: Denies: dysuria Musculoskeletal: Denies: back pain Skin: Denies: rash Neurological: Denies: weakness Past Medical History Past Medical History: Cancer, Hypertension, Osteoarthritis (OA) Additional Past Medical History / Comment(s): Breast cancer 2007 status post left mastectomy with lymph node dissection. History of Any Multi-Drug Resistant Organisms: None Reported Past Surgical History: Breast Surgery, Hysterectomy Past Anesthesia/Blood Transfusion Reactions: No Reported Reaction Past Psychological History: No Psychological Hx Reported Smoking Status: Current every day smoker Past Alcohol Use History: None Reported Past Drug Use History: None Reported - Past Family History Mother Family Medical History: Cancer (mother at age of 76 from breast cancer with metastatic disease to the bone and brain.) Father Family Medical History: Myocardial Infarction ([place]) (father at age of 73 from myocardial infarction.) Brother(s) Family Medical History: Myocardial Infarction ([place]) (patient had 3 brothers one of them with an [place] still alive the other one is healthy the third one emitted suicide.) Sister(s) Family Medical History: Hypertension (patient has 3 sisters with hypertension.) Daughter(s) Family Medical History: No Reported History (patient has a daughter no major medical problems.) General Exam Limitations: no limitations General appearance: alert, in no apparent distress Head exam: Present: atraumatic Eye exam: Present: normal appearance, PERRL ENT exam: Present: normal oropharynx Neck exam: Present: normal inspection Respiratory exam: Present: normal lung sounds bilaterally Cardiovascular Exam: Present: regular rate, normal rhythm Expanded Peripheral pulses: 2+: Radial (R), Radial (L), Dorsalis Pedis (R), Dorsalis Pedis (L) GI/Abdominal exam: Present: soft, tenderness (Moderate epigastric tenderness), guarding (Mild guarding in the epigastric), normal bowel sounds. Absent: distended, rebound, rigid, pulsatile mass Extremities exam: Present: normal inspection Neurological exam: Present: alert. Absent: motor sensory deficit Psychiatric exam: Present: normal affect, normal mood Skin exam: Present: normal color Course Vital Signs 10/17/17 10/17/17 12:42 15:42 Temperature 98.8 F 98.1 F Pulse Rate 103 H 64 Respiratory 18 18 Rate Blood Pressure 149/75 129/64 O2 Sat by Pulse 95 96 Oximetry Medical Decision Making - Medical Decision Making Case was discussed with Dr. Hurtado who would recommend patient have further evaluation and treatment as an outpatient basis. He is concerned regarding insurance when this potentially could be managed as an outpatient. Patient was reevaluated and does not feel much better. Abdomen coke still cleaner on exam. Patient and family are very upset regarding the possibility of being discharged. They state they were sent to the hospital to have definitive care and scope done. Dr. Hurtado said patient was not comfortable discharge she could admit with surgery consult for scope and gallbladder evaluation. - Lab Data Result diagrams: 10/17/17 14:19 10/17/17 14:19 Lab Results 10/17/17 10/17/17 10/17/17 Range/Units 14:19 14:19 14:51 WBC 10.8 H (3.8-10.6) k/uL RBC 4.73 (3.80-5.40) m/uL Hgb 13.6 (11.4-16.0) gm/dL Hct 41.0 (34.0-46.0) % MCV 86.8 (80.0-100.0) fL MCH 28.7 (25.0-35.0) pg MCHC 33.1 (31.0-37.0) g/dL RDW 15.1 (11.5-15.5) % Plt Count 368 (150-450) k/uL Neutrophils % 73 % Lymphocytes % 19 % Monocytes % 6 % Eosinophils % 1 % Basophils % 0 % Neutrophils # 7.9 H (1.3-7.7) k/uL Lymphocytes # 2.0 (1.0-4.8) k/uL Monocytes # 0.6 (0-1.0) k/uL Eosinophils # 0.1 (0-0.7) k/uL Basophils # 0.0 (0-0.2) k/uL PT 10.3 (9.0-12.0) sec INR 1.1 (<1.2) APTT 24.1 (22.0-30.0) sec Sodium 138 (137-145) mmol/L Potassium 3.9 (3.5-5.1) mmol/L Chloride 105 (98-107) mmol/L Carbon Dioxide 22 (22-30) mmol/L Anion Gap 11 mmol/L BUN 9 (7-17) mg/dL Creatinine 0.60 (0.52-1.04) mg/dL Est GFR (CKD-EPI)AfAm >90 (>60 ml/min/1.73 sqM) Est GFR (CKD-EPI)NonAf >90 (>60 ml/min/1.73 sqM) Glucose 92 (74-99) mg/dL Calcium 9.3 (8.4-10.2) mg/dL Total Bilirubin 0.5 (0.2-1.3) mg/dL AST 14 (14-36) U/L ALT 23 (9-52) U/L Alkaline Phosphatase 82 (38-126) U/L Total Protein 6.8 (6.3-8.2) g/dL Albumin 4.2 (3.5-5.0) g/dL Amylase 82 (30-110) U/L Lipase 190 (23-300) U/L Urine Color Urine Appearance (Clear) Urine pH (5.0-8.0) Ur Specific Scenic (1.001-1.035) Urine Protein (Negative) Urine Glucose (UA) (Negative) Urine Ketones (Negative) Urine Blood (Negative) Urine Nitrite (Negative) Urine Bilirubin (Negative) Urine Urobilinogen (<2.0) mg/dL Ur Leukocyte Esterase (Negative) 10/17/17 Range/Units 14:57 WBC (3.8-10.6) k/uL RBC (3.80-5.40) m/uL Hgb (11.4-16.0) gm/dL Hct (34.0-46.0) % MCV (80.0-100.0) fL MCH (25.0-35.0) pg MCHC (31.0-37.0) g/dL RDW (11.5-15.5) % Plt Count (150-450) k/uL Neutrophils % % Lymphocytes % % Monocytes % % Eosinophils % % Basophils % % Neutrophils # (1.3-7.7) k/uL Lymphocytes # (1.0-4.8) k/uL Monocytes # (0-1.0) k/uL Eosinophils # (0-0.7) k/uL Basophils # (0-0.2) k/uL PT (9.0-12.0) sec INR (<1.2) APTT (22.0-30.0) sec Sodium (137-145) mmol/L Potassium (3.5-5.1) mmol/L Chloride (98-107) mmol/L Carbon Dioxide (22-30) mmol/L Anion Gap mmol/L BUN (7-17) mg/dL Creatinine (0.52-1.04) mg/dL Est GFR (CKD-EPI)AfAm (>60 ml/min/1.73 sqM) Est GFR (CKD-EPI)NonAf (>60 ml/min/1.73 sqM) Glucose (74-99) mg/dL Calcium (8.4-10.2) mg/dL Total Bilirubin (0.2-1.3) mg/dL AST (14-36) U/L ALT (9-52) U/L Alkaline Phosphatase (38-126) U/L Total Protein (6.3-8.2) g/dL Albumin (3.5-5.0) g/dL Amylase (30-110) U/L Lipase (23-300) U/L Urine Color Colorless Urine Appearance Clear (Clear) Urine pH 6.5 (5.0-8.0) Ur Specific Scenic 1.002 (1.001-1.035) Urine Protein Negative (Negative) Urine Glucose (UA) Negative (Negative) Urine Ketones 1+ H (Negative) Urine Blood Negative (Negative) Urine Nitrite Negative (Negative) Urine Bilirubin Negative (Negative) Urine Urobilinogen <2.0 (<2.0) mg/dL Ur Leukocyte Esterase Negative (Negative) - Radiology Data Radiology results: image reviewed (Abdominal x-ray shows no acute process.) Disposition Clinical Impression: Abdominal pain Disposition: ADMITTED IP TO THIS HOSP Referrals: Elvin Mcclain DO [Primary Care Provider] - 1-2 days Decision Time: 15:58
[2017-10-17 14:29] LABS: Basophils % (A) 0 %; Eosinophils # (A) 0.1 k/uL (0-0.7); Eosinophils % (A) 1 %; HGB 13.6 gm/dL (11.4-16.0); Lymphocytes % (A) 19 %; MCH 28.7 pg (25.0-35.0); MCHC 33.1 g/dL (31.0-37.0); MCV 86.8 fL (80.0-100.0); Mean Platelet Volume 6.3; Monocytes # (A) 0.6 k/uL (0-1.0); Monocytes % (A) 6 %; Neutrophils # (A) 7.9 k/uL (1.3-7.7); Neutrophils % (A) 73 %; Platelet Count 368 k/uL (150-450); RBC 4.73 m/uL (3.80-5.40); RDW 15.1 % (11.5-15.5); WBC 10.8 k/uL (3.8-10.6)
[2017-10-17 14:41] LABS: ALT 23 U/L (9-52); AST 14 U/L (14-36); Albumin 4.2 g/dL (3.5-5.0); Alkaline Phosphatase 82 U/L (38-126); Amylase 82 U/L (30-110); Anion Gap 11 mmol/L; Blood Urea Nitrogen 9 mg/dL (7-17); Calcium 9.3 mg/dL (8.4-10.2); Carbon Dioxide 22 mmol/L (22-30); Chloride 105 mmol/L (98-107); Glucose 92 mg/dL (74-99); Lipase 190 U/L (23-300); Potassium 3.9 mmol/L (3.5-5.1); Sodium 138 mmol/L (137-145); Total Bilirubin 0.5 mg/dL (0.2-1.3); Total Protein 6.8 g/dL (6.3-8.2)
--- NOTE | 2017-10-17 14:46 | XR ---
EXAMINATION TYPE: XR KUB DATE OF EXAM: 10/17/2017 CLINICAL DATA: 67 year-old female abdominal pain, [facility] COMPARISON: None FINDINGS: Flattening of the hemidiaphragms suggests underlying emphysema No evidence for free intraperitoneal air. No dilated small bowel or air-fluid levels. Scattered mild stool. 6 mm calcification in the left paramedian mid abdomen. IMPRESSION: 1. 6 mm calcification left paramedian mid abdomen could be in the left kidney or renal collecting sys tem. 2.No evidence of bowel obstruction or free intraperitoneal air.
[2017-10-17 15:06] LABS: Appearance,Urine Clear (Clear); Bilirubin,Urine Negative (Negative); Blood,Urine Negative (Negative); Color,Urine Colorless; Glucose,Urine (UA) Negative (Negative); Ketones,Urine 1+ (Negative); Leukocyte Esterase,Urine Negative (Negative); Nitrite,Urine Negative (Negative); PH, Urine 6.5 (5.0-8.0); Protein,Urine Negative (Negative); Specific Gravity,Urine 1.002 (1.001-1.035); Urobilinogen,Urine <2.0 mg/dL (<2.0)
[2017-10-17 15:11] LABS: INR 1.1 (<1.2); Partial Thromboplastin Time 24.1 sec (22.0-30.0); Prothrombin Time 10.3 sec (9.0-12.0)
[2017-10-17] MEDS ORDERED: ONDANSETRON 4 MG/2 ML VIAL IVP PRN (15:58)
[2017-10-17] MEDS ORDERED: NALOXONE 0.4 MG/ML 1 ML VIAL IV PRN (15:58)
[2017-10-17] MEDS ORDERED: MORPHINE SULFATE 2 MG/ML SYRINGE IVP STA (16:00)
[2017-10-17] MEDS: SODIUM CHLORIDE 0.9% 1,000 ML IV SCH (16:46)
[2017-10-17 17:05] VITALS: BMI 20.7
[2017-10-17] MEDS: PANTOPRAZOLE 40 MG/10 ML VIAL IV SCH (17:40)
[2017-10-17] MEDS: NICOTINE 21MG/24HR PATCH TRANSDERM SCH (18:19)
--- NOTE | 2017-10-17 19:06 | P.GSCN ---
History of Present Illness Consult date: 10/17/17 History of present illness: The patient is a 67-year-old female with presents with moderate acute on chronic abdominal pain involving the bilateral upper abdomen. She has been ill with her abdominal pain for 2 to 3 months. Family is at bedside who reports additional 10 pound weight loss as a result. She is a chronic smoker. She has gone to multiple ERs for similar complaints. She states the pain affects her eating. She has stopped eating as result. She has had multiple workup including CT of the abdomen and pelvis, HIDA scan and ultrasound of the gallbladder. She also had previous pancreatitis attack. Ultrasound findings demonstrated gallbladder polyp. HIDA scan also demonstrated biliary dyskinesia , As a result of her findings, Gen. surgery is consulted for further evaluation and management. Past Medical History Past Medical History: Cancer, Hypertension, Osteoarthritis (OA) Additional Past Medical History / Comment(s): Breast cancer 2007 status post left mastectomy with lymph node dissection. History of Any Multi-Drug Resistant Organisms: None Reported Past Surgical History: Breast Surgery, Hysterectomy Additional Past Surgical History / Comment(s): cataract surgery Past Anesthesia/Blood Transfusion Reactions: No Reported Reaction Past Psychological History: No Psychological Hx Reported Smoking Status: Current every day smoker Past Alcohol Use History: None Reported Past Drug Use History: None Reported - Past Family History Mother Family Medical History: Cancer Father Family Medical History: Myocardial Infarction ([place]) Brother(s) Family Medical History: Myocardial Infarction ([place]) Sister(s) Family Medical History: Hypertension Daughter(s) Family Medical History: No Reported History Medications and Allergies Home Medications Medication Instructions Recorded Confirmed Type Gabapentin [Neurontin] 300 mg PO TID 07/30/17 10/17/17 History LORazepam [Ativan] 0.5 mg PO HS 07/30/17 10/17/17 History Letrozole [Femara] 2.5 mg PO DAILY 07/30/17 10/17/17 History amLODIPine [Norvasc] 10 mg PO DAILY 07/30/17 10/17/17 History Allergies Allergy/AdvReac Type Severity Reaction Status Date / Time aspirin Allergy Unknown Verified 10/17/17 14:03 Penicillins Allergy Unknown Verified 10/17/17 14:03 tetanus and diphtheria Allergy Unknown Verified 10/17/17 14:03 toxoids Surgical - Exam Vital Signs Temp Pulse Resp BP Pulse Ox 98.8 F 103 H 18 149/75 95 10/17/17 12:42 10/17/17 12:42 10/17/17 12:42 10/17/17 12:42 10/17/17 12:42 ABDOMEN: Tender along the epigastrium and right upper quadrant. Results - Labs 10/17/17 14:19 10/17/17 14:19 Abnormal Lab Results - Last 24 Hours (Table) 10/17/17 10/17/17 Range/Units 14:19 14:57 WBC 10.8 H (3.8-10.6) k/uL Neutrophils # 7.9 H (1.3-7.7) k/uL Urine Ketones 1+ H (Negative) Diabetes panel 10/17/17 Range/Units 14:19 Sodium 138 (137-145) mmol/L Potassium 3.9 (3.5-5.1) mmol/L Chloride 105 (98-107) mmol/L Carbon Dioxide 22 (22-30) mmol/L BUN 9 (7-17) mg/dL Creatinine 0.60 (0.52-1.04) mg/dL Glucose 92 (74-99) mg/dL Calcium 9.3 (8.4-10.2) mg/dL AST 14 (14-36) U/L ALT 23 (9-52) U/L Alkaline Phosphatase 82 (38-126) U/L Total Protein 6.8 (6.3-8.2) g/dL Albumin 4.2 (3.5-5.0) g/dL Calcium panel 10/17/17 Range/Units 14:19 Calcium 9.3 (8.4-10.2) mg/dL Albumin 4.2 (3.5-5.0) g/dL Pituitary panel 10/17/17 Range/Units 14:19 Sodium 138 (137-145) mmol/L Potassium 3.9 (3.5-5.1) mmol/L Chloride 105 (98-107) mmol/L Carbon Dioxide 22 (22-30) mmol/L BUN 9 (7-17) mg/dL Creatinine 0.60 (0.52-1.04) mg/dL Glucose 92 (74-99) mg/dL Calcium 9.3 (8.4-10.2) mg/dL Adrenal panel 10/17/17 Range/Units 14:19 Sodium 138 (137-145) mmol/L Potassium 3.9 (3.5-5.1) mmol/L Chloride 105 (98-107) mmol/L Carbon Dioxide 22 (22-30) mmol/L BUN 9 (7-17) mg/dL Creatinine 0.60 (0.52-1.04) mg/dL Glucose 92 (74-99) mg/dL Calcium 9.3 (8.4-10.2) mg/dL Total Bilirubin 0.5 (0.2-1.3) mg/dL AST 14 (14-36) U/L ALT 23 (9-52) U/L Alkaline Phosphatase 82 (38-126) U/L Total Protein 6.8 (6.3-8.2) g/dL Albumin 4.2 (3.5-5.0) g/dL Assessment and Plan (1) Cholecystitis Current Visit: Yes Status: Acute Code(s): K81.9 - CHOLECYSTITIS, UNSPECIFIED SNOMED Code(s): 60421827 (2) Biliary dyskinesia Current Visit: Yes Status: Acute Code(s): K82.8 - OTHER SPECIFIED DISEASES OF GALLBLADDER SNOMED Code(s): 028718409 (3) Gastritis Current Visit: Yes Status: Acute Code(s): K29.70 - GASTRITIS, UNSPECIFIED, WITHOUT BLEEDING SNOMED Code(s): 0360586 Plan: 1. The patient had outpatient consultation gastrology however given the severity of her abdominal pain, acute on chronic cholecystitis is suspected. 2. Agree with upper endoscopy which may be performed intraoperatively. 3. Full cardiac workup 2 months ago also reviewed where she had normal sinus normal EKG. 4. Recommend cholecystectomy with intraoperative upper endoscopy. 5. May benefit from full inpatient admission.
[2017-10-17] MEDS ORDERED: MAG HYDROX/AL HYDROX/SIMETH 30 ML, HYOSCYAMINE ELIXIR 10 ML, CIMETIDINE HCL 300 MG PO ONE ×3 (19:07)
[2017-10-17] MEDS: HYDROcodone/APAP 5-325MG 1 EACH TAB PO PRN (21:09)
[2017-10-18] MEDS: SODIUM CHLORIDE 0.9% 1,000 ML IV SCH ×3 (03:52→20:04)
[2017-10-18] MEDS: HYDROcodone/APAP 5-325MG 1 EACH TAB PO PRN (05:25)
[2017-10-18] MEDS: NICOTINE 21MG/24HR PATCH TRANSDERM SCH (07:53)
[2017-10-18] MEDS: PANTOPRAZOLE 40 MG/10 ML VIAL IV SCH (07:54)
[2017-10-18] MEDS: MORPHINE SULFATE 2 MG/ML SYRINGE IV PRN ×2 (07:56→20:37)
[2017-10-18] MEDS: GABAPENTIN 300 MG CAP PO SCH ×4 (09:55→20:43)
[2017-10-18] MEDS: amLODIPine 10 MG TAB PO SCH (09:56)
[2017-10-18] MEDS: LETROZOLE 2.5 MG TAB PO SCH (09:56)
--- NOTE | 2017-10-18 13:13 | P.HPIM ---
History of Present Illness H&P Date: 10/18/17 Chief Complaint: Abdominal pain This is a 67-year-old female one of Dr. Mcclain with a previous medical history significant for hypertension and hypertensive cardio vascular disease with left ventricular hypertrophy, history of breast cancer that was diagnosed back in 2006 status post a left mastectomy with lymph node dissection followed by chemotherapy at that time, history of chronic tobacco use and dependence, patient presented to the emergency department at [facility] in July because of severe pain in the chest radiated to the back associated with breathing difficulty that had been going on for 2 months. Cardiac enzymes were negative and patient was discharged home with plan for follow-up. She did have elevated amylase and lipase and ultrasound of the abdomen showed a polyp of the gallbladder and patient was to follow-up as an outpatient for CAT scan of the abdomen and pelvis with Dr. Mcclain. She subsequently underwent a HIDA scan that showed abnormal low gallbladder ejection fraction of summer percent. Her daughter lives in [place] and made a appointment with his surgeon that said this could be treated medically and not a surgical intervention. Patient was then referred to a GI doctor and her appointment is set for November 28 and this is also in [place]. Because the severity of the abdominal pain she was unable to wait for this further appointment. She is also complaining of decreased appetite and oral intake for the past couple weeks and has lost 7 pounds She states her whole abdomen is hurting but is more severe under the right rib cage. Patient came into [facility] emergency center for evaluation. Her white count was 10.8, amylase and lipase were within normal limits as well as liver function tests and electrolytes, renal function. Urinalysis did not show any signs of infection. Patient was started on morphine and [facility] and she has been seen in consultation by Dr. Jimenez with plan for EGD and cholecystectomy this afternoon. Review of Systems All systems: negative Constitutional: Reports fatigue, Reports poor appetite, Reports weight loss, Denies chills, Denies fever Eyes: denies blurred vision, denies pain Ears, nose, mouth and throat: Denies headache, Denies sore throat, Denies vertigo Cardiovascular: Denies chest pain, Denies decreased exercise tolerance, Denies dyspnea on exertion, Denies leg edema, Denies lightheadedness, Denies shortness of breath, Denies syncope Respiratory: Denies congestion, Denies cough, Denies cough with sputum, Denies dyspnea, Denies excessive sputum, Denies hemoptysis, Denies home oxygen, Denies wheezing Gastrointestinal: Reports abdominal pain, Reports loss of appetite, Reports nausea, Denies diarrhea, Denies vomiting Genitourinary: Denies dysuria, Denies hematuria Musculoskeletal: Denies myalgias Integumentary: Denies pruritus, Denies rash Neurological: Denies numbness, Denies weakness Psychiatric: Denies anxiety, Denies depression Endocrine: Denies fatigue, Denies weight change Past Medical History Past Medical History: Cancer, Hypertension, Osteoarthritis (OA) Additional Past Medical History / Comment(s): Breast cancer 2007 status post left mastectomy with lymph node dissection. History of Any Multi-Drug Resistant Organisms: None Reported Past Surgical History: Breast Surgery, Hysterectomy Additional Past Surgical History / Comment(s): cataract surgery Past Anesthesia/Blood Transfusion Reactions: No Reported Reaction Past Psychological History: No Psychological Hx Reported Smoking Status: Current every day smoker Past Alcohol Use History: None Reported Additional Past Alcohol Use History / Comment(s): Patient is a smoker one and a half packs of cigarettes per day and started when she was a teenager. Shows a has history of alcohol intake but quit many years ago. Past Drug Use History: None Reported - Past Family History Mother Family Medical History: Cancer Additional Family Medical History / Comment(s): Mother at age 76 from breast cancer with metastatic disease to bone and brain. Father Family Medical History: Myocardial Infarction (CT) Additional Family Medical History / Comment(s): Father at age 73 from myocardial infarction. Brother(s) Family Medical History: Myocardial Infarction (CT) Additional Family Medical History / Comment(s): She had 3 brothers and one of them with CT still alive other one is healthy and third one committed suicide. Sister(s) Family Medical History: Hypertension Additional Family Medical History / Comment(s): Patient has 3 sisters with hypertension. Daughter(s) Family Medical History: No Reported History Additional Family Medical History / Comment(s): Patient has one daughter with no major medical problems. Medications and Allergies Home Medications Medication Instructions Recorded Confirmed Type Gabapentin [Neurontin] 300 mg PO TID 07/30/17 10/17/17 History LORazepam [Ativan] 0.5 mg PO HS 07/30/17 10/17/17 History Letrozole [Femara] 2.5 mg PO DAILY 07/30/17 10/17/17 History amLODIPine [Norvasc] 10 mg PO DAILY 07/30/17 10/17/17 History Allergies Allergy/AdvReac Type Severity Reaction Status Date / Time aspirin Allergy Unknown Verified 10/17/17 14:03 Penicillins Allergy Unknown Verified 10/17/17 14:03 tetanus and diphtheria Allergy Unknown Verified 10/17/17 14:03 toxoids Physical Exam Vitals: Vital Signs Temp Pulse Pulse Resp BP BP Pulse Ox 10/18/17 05:35 97.4 F L 68 16 134/74 96 10/17/17 23:00 98.5 F 66 16 111/63 95 10/17/17 17:57 97.8 F 80 18 117/67 98 10/17/17 16:30 99.0 F 72 18 125/61 96 10/17/17 15:42 98.1 F 64 18 129/64 96 10/17/17 12:42 98.8 F 103 H 18 149/75 95 Intake and Output 10/17/17 10/18/17 10/18/17 22:59 06:59 14:59 Other: Voiding Method Toilet Toilet # Voids 1 1 Weight 54.885 kg General appearance: no acute distress, thin - EENT Eyes: anicteric sclerae, EOMI, PERRLA, no ptosis, no scleral icterus, normal appearance ENT: hearing grossly normal, NA/AT, normal oropharynx, no thrush Ears: bilateral: normal - Neck Neck: no lymphadenopathy, normal ROM, no rigidity, no stridor, no thyromegaly Carotids: bilateral: upstroke delayed Thyroid: bilateral: normal size - Respiratory Respiratory: bilateral: diminished, negative: dullness, rales, rhonchi, wheezing , prolonged expiration - Cardiovascular Rhythm: regular Heart sounds: normal: S1, S2 Abnormal Heart Sounds: systolic murmur, no S3 Gallop, no S4 Gallop - Gastrointestinal General gastrointestinal: normal bowel sounds, soft, tenderness (epigastric area and no rebound or guarding has a bowel sounds.), no umbilical hernia, no ventral hernia - Integumentary Integumentary: normal, normal turgor - Neurologic Neurologic: CNII-XII intact - Musculoskeletal Musculoskeletal: strength equal bilaterally - Psychiatric Psychiatric: A&O x's 3, appropriate affect, intact judgment & insight Results CBC & Chem 7: 10/17/17 14:19 10/17/17 14:19 Labs: Abnormal Lab Results - Last 24 Hours (Table) 10/17/17 10/17/17 Range/Units 14:19 14:57 WBC 10.8 H (3.8-10.6) k/uL Neutrophils # 7.9 H (1.3-7.7) k/uL Urine Ketones 1+ H (Negative) Thrombosis Risk Factor Assmnt - DVT/VTE Prophylaxis DVT/VTE Prophylaxis: Pharmacologic Prophylaxis ordered - Choose All That Apply Each Factor Represents 1 point: Abnormal pulmonary function (COPD) Thrombosis Risk Factor Assessment Total Risk Factor Score: 1 Thrombosis Risk Factor Assessment Level: Low Risk Assessment and Plan Plan: 1. Cholecystitis. Continue current pain management. Patient is scheduled for EGD and cholecystectomy. Incentive spirometry to reduce incidence of atelectasis and hospital-acquired pneumonia. 2. Tobacco use and dependence. Continue nicotine patch. 3. Hypertension and hypertensive cardio vascular disease. Continue amlodipine 10 mg orally once every day. 4. History of breast cancer status post chemotherapy and surgery. Continue Letrozol. 5. Peripheral neuropathy. Continue gabapentin. 6. Generalized anxiety disorder. Continue Ativan 0.5 mg at bedtime 7. GI prophylaxis. Protonix. 8. DVT prophylaxis. EULOGIO mejía and SCDs. Patient is observation status. Discharge plan: Return home CODE STATUS: Full code Impression and plan of care have been directed as dictated by the signing physician. Lucy Bee nurse practitioner acting as scribe for signing physician.
[2017-10-18] MEDS ORDERED: IV FLUID CONTINUATION 1,000 ML IV ONE (16:52)
[2017-10-18] MEDS ORDERED: PROPOFOL 10 MG/ML 20 ML VIAL IV ONE (17:12)
[2017-10-18] MEDS ORDERED: NEOSTIGMINE 1 MG/ML 10 ML VIAL ONE (17:12)
[2017-10-18] MEDS ORDERED: fentaNYL (PF) 50 MCG/ML 2 ML AMP ONE (17:12)
[2017-10-18] MEDS ORDERED: ROCURONIUM BROMIDE 10 MG/ML 10 ML VIAL IV ONE (17:12)
[2017-10-18] MEDS ORDERED: MIDAZOLAM 2 MG/2 ML VIAL ONE (17:12)
[2017-10-18] MEDS ORDERED: LIDOCAINE 1% INJ 10MG/ML (20 ML MDV) ONE (17:12)
[2017-10-18] MEDS ORDERED: GLYCOPYRROLATE 0.2 MG/ML 2 ML VIAL ONE (17:12)
[2017-10-18] MEDS ORDERED: SUCCINYLCHOLINE CHLORIDE 100 MG/5 ML SYR IV ONE (17:12)
[2017-10-18] MEDS ORDERED: INDOCYANINE GREEN 25 MG VIAL IV STA (17:19)
[2017-10-18] MEDS ORDERED: SODIUM CHLORIDE 0.9% 50 ML with ceFAZolin 2,000 MG IV ONE ×2 (17:40)
[2017-10-18] MEDS ORDERED: BUPIVACAINE (PF) 0.5% 30 ML VIAL SQ ONE (18:02)
--- NOTE | 2017-10-18 19:04 | P.OP ---
Date of Procedure: 10/18/17 Description of Procedure: SURGEON: SHERLEY CHURCH MD CUSTOMS COMPLIANCE MANAGER: PREOPERATIVE DIAGNOSES: 1. Right upper quadrant and epigastric abdominal pain 2. Acute cholecystitis 3. Gastric esophageal reflux disease 4. Chronic obstructive pulmonary disease 5. History of left breast cancer 6. Unintentional weight loss 7. Tobacco abuse 8. Hypertensive heart disease POSTOPERATIVE DIAGNOSES: 1. Right upper quadrant and epigastric abdominal pain 2. Acute cholecystitis 3. Gastric esophageal reflux disease 4. Chronic obstructive pulmonary disease 5. History of left breast cancer 6. Unintentional weight loss 7. Tobacco abuse 8. Hypertensive heart disease 9. Intra-abdominal adhesions lower abdomen OPERATION: 1. Robotic-assisted da Karen Xi laparoscopic cholecystectomy, multiport with FIREFLY 2. Intraoperative esophagogastroduodenoscopy with cold forceps biopsies ( please see separate operative report) ESTIMATED BLOOD LOSS: 5 mL. SPECIMENS REMOVED: Gallbladder. COMPLICATIONS: None. OPERATIVE FINDINGS: 1. Acute cholecystitis INDICATIONS: The patient is a 67-year-old female who presents with acute cholelcystitis. Surgical intervention with a laparoscopic cholecystectomy was described at length including injury to the biliary tree, bleeding, infection, need for further surgery. Informed consent was obtained. Robotic assisted laparoscopic approach was described. Benefits and risks of the procedure including but not limited to bleeding, infection, injury to the biliary tree was described. Informed consent was obtained. DESCRIPTION OF PROCEDURE: Patient was brought to the operating room, placed in supine position. After general induction, the abdomen had been prepped and draped in standard sterile fashion. The robotic da Karen XI system was primed. After a timeout protocol was performed, the patient had been prepped and draped in standard sterile fashion. The patient was injected with indocyanine green. A 5 mm 0 degrees laparoscopic trocar entry was performed along the left upper quadrant. The abdomen insufflated to 15 mmHg pressure which she tolerated well. Diagnostic laparoscopy demonstrated no injury to bowel viscera or mesentery. The liver surface was unremarkable. Next, two 8 mm robotic ports were placed along the right upper abdomen. The camera 8-mm port was maintained along the epigastrium. Another 8 mm port was placed along the left upper abdominal wall after exchanging the 5 mm port. Please note that the ports were placed at least 10 to 15 cm away from the target anatomy of the gallbladder. The robot was docked along the left lateral abdomen. The patient was repositioned in reverse Trendelenburg position. Using a grasper for arm 3, a grasper for arm 4, including hook cautery for arm 1 , the robotic system was docked and primed as described. Instruments were interchanged by the magistrate assistant including hook cautery, Bovie cautery and clip appliers. I had sat at the console. Adhesions were identified along the infundibulum of the gallbladder and addressed using hook cautery. The gallbladder fundus was retracted over the dome of the liver. Initial attention was brought to the infundibulum which was gently retracted in the inferior lateral approach. Using a grasper, the cystic duct including the cystic artery was carefully skeletonized. FIREFLY was used to identify the cystic artery and cystic structures. Large PLASTIC clips were used throughout the entire case. Using a clip door liner 2 clips were placed proximally, and 1 clip was placed distally along the cystic duct and then cauterized with the cautery. Again care was taken to avoid any injury to the biliary tree as the common bile duct was clearly visualized during this portion of dissection. Next, the cystic artery was similarly clipped and cauterized. Electro-Bovie cautery was used to remove the gallbladder from the hepatic fossa. Hemostasis was checked and found to be adequate. The robot was undocked. I re-scrubbed into the case. Using a 10 mm Endo Catch bag via the epigastric incision, the specimen was removed from the abdominal cavity. All pneumoperitoneum instruments were evacuated from the abdominal cavity. The incisions were reapproximated using 4-0 Monocryl in an interrupted subcuticular fashion. Fascial defect at the epigastrium was closed using 0 Vicryl and Phill Hernandez. Please note along the trocar sites, local anesthetic was placed as a field block prior to insertion of all instruments. Liquid glue was applied to the skin. At the end of the procedure needle, sponge, and instrument count had been verified correct by the bomb technician. The patient was transferred to postanesthesia care unit in stable condition. Intraoperative films were shared with the patient's family who were very pleased with the level of care. Console time 17 minutes
[2017-10-18] MEDS ORDERED: ACETAMINOPHEN IV (For NPO) 1,000 MG in EMPTY BAG 1 BAG IVPB ONE (19:06)
--- NOTE | 2017-10-18 19:06 | P.PCN ---
Date of Procedure: 10/18/17 Description of Procedure: PREOPERATIVE DIAGNOSIS: Gastroesophageal reflux disease. POSTOPERATIVE DIAGNOSIS: Gastritis, superficial and chronic Gastroesophageal reflux disease. Diaphragmatic hiatal hernia without obstruction. OPERATION: Esophagogastroduodenoscopy with biopsies along antrum. SURGEON: Teresa Jimenez MD ANESTHESIA: MAC. SPECIMEN: Antral biopsy INDICATIONS: The patient is a 67-year-old female who presents with a history of reflux disease. Benefits and risks of the procedure were described. Informed consent was obtained. DESCRIPTION: After completion of her cholecystectomy, I went to the head of the bed to perform her upper endoscopy. An Olympus gastroscope was passed along the posterior oropharynx down to the distal esophagus where the squamocolumnar junction was encountered at 35 cm from the incisors. The stomach was entered and no bile reflux was found. Additional findings are listed below. Biopsies with cold forceps were obtained of the antrum. The first through third portion of the duodenum was examined and unremarkable. Retroflexion of the scope confirmed Hill grade 4 lower esophageal valve. The squamocolumnar junction demostrated LA grade B erosive esophagitis. The stomach was desufflated. The patient tolerated the procedure well. FINDINGS: Squamocolumnar junction 36 cm from the incisors. Diaphragmatic hiatus at 40 cm. Hiatal hernia 4 cm. Hill grade 4 lower esophageal valve. LA grade B erosive esophagitis. Diffuse gastritis. No active duodenitis. RECOMMENDATIONS: Further recommendations pending results of pathology report. Upper endoscopy as needed. Will benefit from antireflux surgical procedure
--- NOTE | 2017-10-18 20:16 | P.PN ---
Subjective Progress Note Date: 10/18/17 Patient is postop day 0 from her robotic cholecystectomy. She is doing very well. She is ambulating with assistance. Pain is controlled. Objective - Vital Signs Vital signs: Vital Signs Temp 97.2 F L 10/18/17 18:47 Pulse 67 10/18/17 19:17 Resp 16 10/18/17 19:17 BP 121/56 10/18/17 19:17 Pulse Ox 94 L 10/18/17 19:17 Intake & Output 10/18/17 10/18/17 10/19/17 06:59 18:59 06:59 Intake Total 1175 50 Output Total 5 Balance 1170 50 Weight 54.885 kg Intake: IV 1175 50 Output: Estimated Blood Loss 5 Other: Voiding Method Toilet Toilet # Voids 1 2 - Exam GENERAL: Well developed and in no acute distress. Pleasant. HEENT: No sclera icterus. Extraocular movements grossly intact. Moist buccal mucosa. Head is atraumatic, normocephalic. Hears conversational speech. No nasal drainage. NECK: Supple without lymphadenopathy. CHEST: Non-labored respirations and equal bilateral excursions. CARDIOVASCULAR: Regular rate and rhythm. Palpable 2+ radial pulses. ABDOMEN: Soft. Nondistended. Incisions clean dry and intact. MUSCULOSKELETAL: No clubbing, cyanosis or edema. NEUROLOGIC: No focal or lateralizing signs. PSYCH: Appropriate affect. Alert and oriented to person, place and time. - Labs CBC & Chem 7: 10/17/17 14:19 10/17/17 14:19 Assessment and Plan (1) Cholecystitis Current Visit: Yes Status: Acute Code(s): K81.9 - CHOLECYSTITIS, UNSPECIFIED SNOMED Code(s): 91850807 (2) Biliary dyskinesia Current Visit: Yes Status: Acute Code(s): K82.8 - OTHER SPECIFIED DISEASES OF GALLBLADDER SNOMED Code(s): 876309670 (3) Gastritis Current Visit: Yes Status: Acute Code(s): K29.70 - GASTRITIS, UNSPECIFIED, WITHOUT BLEEDING SNOMED Code(s): 6715990 Plan: 1. Will need omeprazole or Protonix for home. 2. Once tolerating diet, potential discharge home in 24 hours. 3. Follow-up in the office in 2 weeks.
[2017-10-18] MEDS ORDERED: LORazepam 0.5 MG TAB PO SCH (21:00)
[2017-10-18] MEDS ORDERED: LORazepam 0.5 MG TAB ONE (23:45)
[2017-10-19] MEDS ORDERED: ACETAMINOPHEN TAB 325 MG TAB PO PRN
[2017-10-19] MEDS: SODIUM CHLORIDE 0.9% 1,000 ML IV SCH (05:36)
[2017-10-19 06:09] VITALS: BP 138/72; PULSE 76; RESP 16; TEMP 97.8
[2017-10-19] MEDS: amLODIPine 10 MG TAB PO SCH (08:40)
[2017-10-19] MEDS: GABAPENTIN 300 MG CAP PO SCH (08:40)
[2017-10-19] MEDS: LETROZOLE 2.5 MG TAB PO SCH (08:40)
[2017-10-19] MEDS: PANTOPRAZOLE 40 MG/10 ML VIAL IV SCH (08:40)
[2017-10-19] MEDS: NICOTINE 21MG/24HR PATCH TRANSDERM SCH (08:40)
[2017-10-19] MEDS ORDERED: ENOXAPARIN 30 MG/0.3 ML SYRINGE SQ SCH (09:00)
--- NOTE | 2017-10-19 10:52 | P.DS ---
Providers Date of admission: 10/17/17 15:58 Expected date of discharge: 10/19/17 Attending physician: Harish Hurtado Consults: 10/17/17 15:59 Consult Physician Urgent Consulting Provider: Teresa Jimenez Consult Reason/Comments: Abdominal pain, EGD, evaluate recent HIDA scan Do you want consulting provider notified?: Yes Primary care physician: Elvin [facility]ierJohny [facility] Course: This is a 67-year-old female one of Dr. Mcclain with a previous medical history significant for hypertension and hypertensive cardio vascular disease with left ventricular hypertrophy, history of breast cancer that was diagnosed back in 2006 status post a left mastectomy with lymph node dissection followed by chemotherapy at that time, history of chronic tobacco use and dependence, patient presented to the emergency department at [facility] in July because of severe pain in the chest radiated to the back associated with breathing difficulty that had been going on for 2 months. Cardiac enzymes were negative and patient was discharged home with plan for follow-up. She did have elevated amylase and lipase and ultrasound of the abdomen showed a polyp of the gallbladder and patient was to follow-up as an outpatient for CAT scan of the abdomen and pelvis with Dr. Mcclain. She subsequently underwent a HIDA scan that showed abnormal low gallbladder ejection fraction of summer percent. Her daughter lives in [place] and made a appointment with his surgeon that said this could be treated medically and not a surgical intervention. Patient was then referred to a GI doctor and her appointment is set for November 28 and this is also in [place]. Because the severity of the abdominal pain she was unable to wait for this further appointment. She is also complaining of decreased appetite and oral intake for the past couple weeks and has lost 7 pounds She states her whole abdomen is hurting but is more severe under the right rib cage. Patient came into [facility] emergency center for evaluation. Her white count was 10.8, amylase and lipase were within normal limits as well as liver function tests and electrolytes, renal function. Urinalysis did not show any signs of infection. Patient was started on morphine and [facility] and she has been seen in consultation by Dr. Jimenez with plan for EGD and cholecystectomy this afternoon. 10/19: Patient underwent laparoscopic robotic cholecystectomy yesterday. Patient has been ambulating in her room and in the hallway without any difficulties. She states that her pain is a #3 across the right upper quadrant and epigastric area but is significantly improved from when she came in. She has not had a [place] since yesterday evening. She has been afebrile. Patient will be discharged home today after breakfast. Discharge diagnoses: 1. Cholecystitis. 2. Tobacco use and dependence. 3. Hypertension and hypertensive cardio vascular disease. 4. History of breast cancer status post chemotherapy and surgery. 5. Peripheral neuropathy. 6. Generalized anxiety disorder. Discharge plan: Return home Impression and plan of care have been directed as dictated by the signing physician. Lucy Bee nurse practitioner acting as scribe for signing physician. Patient Condition at Discharge: Good Plan - Discharge Summary Discharge Rx Participant: No New Discharge Prescriptions: New Pantoprazole Sodium [Protonix] 40 mg PO DAILY #30 tablet. Nicotine 21Mg/24Hr Patch [Habitrol] 1 patch TRANSDERM DAILY #30 patch Continue amLODIPine [Norvasc] 10 mg PO DAILY Letrozole [Femara] 2.5 mg PO DAILY LORazepam [Ativan] 0.5 mg PO HS Gabapentin [Neurontin] 300 mg PO TID Discharge Medication List Gabapentin [Neurontin] 300 mg PO TID 07/30/17 [History] LORazepam [Ativan] 0.5 mg PO HS 07/30/17 [History] Letrozole [Femara] 2.5 mg PO DAILY 07/30/17 [History] amLODIPine [Norvasc] 10 mg PO DAILY 07/30/17 [History] Pantoprazole Sodium [Protonix] 40 mg PO DAILY #30 tablet. 10/18/17 [Rx] Nicotine 21Mg/24Hr Patch [Habitrol] 1 patch TRANSDERM DAILY #30 patch 10/19/17 [ Rx] Follow up Appointment(s)/Referral(s): Teresa Jimenez MD [STAFF PHYSICIAN] - 11/01/17 Elvin Mcclain DO [Primary Care Provider] - 11/14/17 11:00 am Patient Instructions/Handouts: Hiatal Hernia (GEN), Gastritis (GEN), Laparoscopic Cholecystectomy (DC) Activity/Diet/Wound Care/Special Instructions: Low-fat diet. May shower. No bath tub soaks. No lifting over 5 pounds in 2 weeks. May take Tylenol for pain. Discharge Disposition: HOME SELF-CARE
== END 2017-10-19 10:28 | disposition home or self-care (01) ==
LOC: EC 12:31 → 4MS4W 15:58
PROVIDERS: ADMIT Internal Medicine Geriatric Medicine; ATTEND Internal Medicine Geriatric Medicine
DX: K81.1 Chronic cholecystitis (principal); K29.50 Unspecified chronic gastritis without bleeding; B96.81 Helicobacter pylori [H. pylori] as the cause of diseases classified elsewhere; K22.10 Ulcer of esophagus without bleeding; K44.9 Diaphragmatic hernia without obstruction or gangrene; K66.0 Peritoneal adhesions (postprocedural) (postinfection); K21.9 Gastro-esophageal reflux disease without esophagitis; F17.210 Nicotine dependence, cigarettes, uncomplicated; I11.9 Hypertensive heart disease without heart failure; M19.90 Unspecified osteoarthritis, unspecified site; G62.9 Polyneuropathy, unspecified; F41.1 Generalized anxiety disorder; J44.9 Chronic obstructive pulmonary disease, unspecified; R63.4 Abnormal weight loss; Z79.899 Other long term (current) drug therapy; Z88.0 Allergy status to penicillin; Z88.6 Allergy status to analgesic agent; Z88.7 Allergy status to serum and vaccine; Z90.12 Acquired absence of left breast and nipple; Z85.3 Personal history of malignant neoplasm of breast; Z90.710 Acquired absence of both cervix and uterus; Z92.21 Personal history of antineoplastic chemotherapy; Z82.49 Family history of ischemic heart disease and other diseases of the circulatory system; Z80.3 Family history of malignant neoplasm of breast; Z80.8 Family history of malignant neoplasm of other organs or systems; Z81.8 Family history of other mental and behavioral disorders
CPT/HCPCS: 43239; 47562; 96361; 96374; 96375; 99285; S2900; 36415; 74018; 80053; 81003; 82150; 83690; 85025; 85610; 85730; 88304; 88305; 88342

== ENCOUNTER → 2018-02-17 | Outpatient (CLI) | payer MEDICARE ==
--- NOTE | 2018-02-17 10:42 | MM ---
Reason for exam: additional evaluation requested from prior study. Last mammogram was performed 2 years and 1 month ago. History: Patient is postmenopausal and has history of breast cancer at age 50. Family history of breast cancer in mother at age 70. Mastectomy of the left breast. Chemotherapy. Took other hormone for 10 years. Physical Findings: Nurse did not find any significant physical abnormalities on exam. MG 3D Diag Mammo W/Cad RT CC and MLO view(s) were taken of the right breast. Prior study comparison: January 19, 2016, mammogram. The breast tissue is heterogeneously dense. This may lower the sensitivity of mammography. There are benign appearing round dystrophic calcifications in the right breast. Asymmetric breast tissue in the right breast MLO view, unchanged from priors. There is no discrete abnormality. These results were verbally communicated with the patient and result sheet given to the patient on 02/17/18. ASSESSMENT: Benign, BI-RAD 2 RECOMMENDATION: Follow-up diagnostic mammogram of the right breast in 1 year.
== END ==
LOC: RADMAMWWP 08:51
PROVIDERS: ATTEND Family Medicine
DX: Z08 Encounter for follow-up examination after completed treatment for malignant neoplasm (principal); Z85.3 Personal history of malignant neoplasm of breast
CPT/HCPCS: 77065; G0279; 77061

== ENCOUNTER → 2018-04-17 | Outpatient (CLI) | payer MEDICARE | END | disposition home or self-care (01) | LOC: LABWHC1 12:40 | PROVIDERS: ATTEND Family Medicine | DX: K21.0 Gastro-esophageal reflux disease with esophagitis (principal); B96.81 Helicobacter pylori [H. pylori] as the cause of diseases classified elsewhere | CPT/HCPCS: 36415; 83013 ==

== ENCOUNTER → 2018-10-25 | Outpatient (CLI) | payer MEDICARE | END | disposition home or self-care (01) | LOC: LABWHC1 12:49 | PROVIDERS: ATTEND Family Medicine | DX: R60.9 Edema, unspecified (principal) | CPT/HCPCS: 36415; 85379 ==

== ENCOUNTER → 2018-12-29 | Outpatient (CLI) | payer MEDICARE ==
[2018-12-29 06:51] LABS: African American GFR (CKD) >90 (>60 ml/min/1.73 sqM); Blood Urea Nitrogen 12 mg/dL (7-17)
--- NOTE | 2018-12-29 09:59 | CT ---
EXAMINATION TYPE: CT angio neck DATE OF EXAM: 12/29/2018 HISTORY: Carotid Stenosis COMPARISON: None CT DLP: 176.3 mGycm. Automated Exposure Control for Dose Reduction was Utilized. TECHNIQUE: CTA scan of the neck is performed with IV Contrast, patient injected with 65 mL of Isovue 370, axial images are obtained, coronal and sagittal reformatted images are reviewed. Three-D recons tructed images are created on an independent workstation and reviewed. FINDINGS: Upper lobes show emphysematous changes within the lungs. Postop changes noted to the left a xilla. Some probable retained secretions present within the trachea. Heterogeneous density within the gallbladder likely due to goiter which is expanded into the substernal location, superior mediastinu m. Left lobe of the thyroid is diminished in size, there may been prior surgery. Carotid/Vascular Structures: Transverse aorta is patent, there are 3 super aortic branch vessels pres ent. The left and right common carotid, left and right subclavian, innominate arteries are patent. In ternal and external carotid arteries, vertebral arteries are patent. Vertebral arteries are codominan t. The proximal left internal carotid artery shows a high-grade stenosis, sagittal image #21 of the mid image shows approximate 70% or greater diameter reduction. Proximal internal shows only a mild narrow ing of approximately 40-50%. Other: Degenerative disc changes in the visualized spine. Skull base is normal. IMPRESSION: Hemodynamic significant stenosis of the proximal internal carotid artery on the left lucia esponding to 70% diameter reduction or greater by NASCET criteria.
== END | disposition home or self-care (01) ==
LOC: RADCTMAIN 06:02
PROVIDERS: ATTEND Surgery
DX: I65.22 Occlusion and stenosis of left carotid artery (principal); Z88.0 Allergy status to penicillin; Z88.6 Allergy status to analgesic agent
CPT/HCPCS: 82565; 84520; 70498; 36415; Q9967

== ENCOUNTER → 2019-01-29 | Outpatient (CLI) | payer MEDICARE ==
[2019-01-29 10:50] LABS: African American GFR (CKD) >90 (>60 ml/min/1.73 sqM); Anion Gap 10 mmol/L; Blood Urea Nitrogen 12 mg/dL (7-17); Carbon Dioxide 26 mmol/L (22-30); Chloride 108 mmol/L (98-107); Potassium 4.1 mmol/L (3.5-5.1); Sodium 144 mmol/L (137-145)
[2019-01-29 11:07] LABS: Basophils # (A) 0.1 k/uL (0-0.2); Basophils % (A) 0 %; Eosinophils # (A) 0.2 k/uL (0-0.7); Eosinophils % (A) 2 %; HCT 42.9 % (34.0-46.0); Lymphocytes # (A) 2.6 k/uL (1.0-4.8); Lymphocytes % (A) 25 %; MCH 28.8 pg (25.0-35.0); MCHC 32.5 g/dL (31.0-37.0); MCV 88.6 fL (80.0-100.0); Mean Platelet Volume 5.2; Monocytes # (A) 0.4 k/uL (0-1.0); Monocytes % (A) 4 %; Neutrophils # (A) 6.8 k/uL (1.3-7.7); Neutrophils % (A) 66 %; Platelet Count 411 k/uL (150-450); RBC 4.84 m/uL (3.80-5.40); RDW 15.1 % (11.5-15.5); WBC 10.3 k/uL (3.8-10.6)
== END | disposition home or self-care (01) ==
LOC: LABPAT 10:07
PROVIDERS: ATTEND Surgery
DX: Z01.812 Encounter for preprocedural laboratory examination (principal); I65.29 Occlusion and stenosis of unspecified carotid artery
CPT/HCPCS: 36415; 80051; 82565; 84520; 85025

== ENCOUNTER 2019-02-06 07:33 | Inpatient (IN) | payer MEDICARE ==
[~2019-02-06 07:33] MED LIST: DEXAMETHASONE SOD PHOSPHATE 10 MG/ML 1 ML VIAL IV ONE; HYDROmorphone 0.5 MG/0.5 ML SYRINGE IVP PRN; LIDOCAINE 1% 20 ML VIAL (10MG/ML) FOR IV START INTRADERMA PRN; MIDAZOLAM 2 MG/2 ML VIAL IV PRN; ONDANSETRON 4 MG/2 ML VIAL IVP ONE; SCOPOLAMINE 1.5MG/72HR PATCH TRANSDERM ONE
[2019-02-06] MEDS: LACTATED RINGERS 1,000 ML IV SCH ×3 (08:48→20:58)
[2019-02-06] MEDS ORDERED: MIDAZOLAM 2 MG/2 ML VIAL IVP ONE (09:07)
[2019-02-06] MEDS ORDERED: fentaNYL (PF) 50 MCG/ML 2 ML AMP IVP ONE (09:07)
[2019-02-06] MEDS ORDERED: CLINDAMYCIN 600 MG in SODIUM CHLORIDE 0.9% IRRIGATIO 250 ML IRRIGATION ONE (09:14)
[2019-02-06] MEDS ORDERED: CLINDAMYCIN 900 MG in DEXTROSE 5% IN WATER 50 ML IVPB ONE ×2 (09:30)
--- NOTE | 2019-02-06 09:54 | P.PN ---
Progress Note - Text Progress Note Date: 02/06/19 Patient seen and examined in the pre-op area. She is complaining of a headache that started at her neck posteriorly and has moved to her forehead which she describes as 10/10 pain. She states having a history of tension headaches in the past but hasn't had one in several months. I did discuss with anesthesia for possible cancellation of the procedure due to her headache but we will treat her at this time and reevaluate in about 30-45 minutes to see if her anxiety and headache resolves. If this does resolve we will then perform the procedure as scheduled.
[2019-02-06] MEDS ORDERED: NEOSTIGMINE 1 MG/ML 10 ML VIAL ONE (10:21)
[2019-02-06] MEDS ORDERED: fentaNYL (PF) 50 MCG/ML 2 ML AMP ONE (10:21)
[2019-02-06] MEDS ORDERED: GLYCOPYRROLATE 0.2 MG/ML 2 ML VIAL ONE (10:21)
[2019-02-06] MEDS ORDERED: ePHEDrine SULFATE/0.9% NACL/PF 50 MG/5 ML SYRINGE IV ONE (10:21)
[2019-02-06] MEDS ORDERED: LIDOCAINE 1% INJ 10MG/ML (20 ML MDV) ONE (10:21)
[2019-02-06] MEDS ORDERED: HEPARIN SODIUM,PORCINE 5,000 UNIT/ML 1 ML VIAL ONE (10:21)
[2019-02-06] MEDS ORDERED: PROPOFOL 10 MG/ML 20 ML VIAL IV ONE (10:21)
[2019-02-06] MEDS ORDERED: PHENYLEPHRINE-0.9% NACL SYG 1 MG/10 ML SYRINGE ONE (10:21)
[2019-02-06] MEDS ORDERED: MIDAZOLAM 2 MG/2 ML VIAL ONE (10:21)
[2019-02-06] MEDS ORDERED: diphenhydrAMINE 50 MG/ML 1 ML VIAL ONE (10:21)
[2019-02-06] MEDS ORDERED: ROCURONIUM BROMIDE 10 MG/ML 10 ML VIAL IV ONE (10:21)
[2019-02-06] MEDS ORDERED: LIDOCAINE 1% INJ 10MG/ML (20 ML MDV) IM ONE (10:23)
[2019-02-06] MEDS ORDERED: LACTATED RINGERS 1,000 ML IV ONE ×2 (12:35)
[2019-02-06] MEDS ORDERED: MAG HYDROX/AL HYDROX/SIMETH 30 ML CUP PO PRN (12:58)
[2019-02-06] MEDS ORDERED: HYDROcodone/APAP 5-325MG 1 EACH TAB PO PRN (12:58)
[2019-02-06] MEDS ORDERED: MORPHINE SULFATE 2 MG/ML SYRINGE IVP PRN (12:58)
[2019-02-06] MEDS ORDERED: ACETAMINOPHEN TAB 325 MG TAB PO PRN (12:58)
[2019-02-06] MEDS ORDERED: BENZOCAINE/MENTHOL LOZENG 1 EACH LOZENGE MUCOUS MEM PRN (12:58)
[2019-02-06] MEDS ORDERED: TRIMETHOBENZAMIDE 100 MG/ML 2 ML VIAL IM PRN (12:58)
--- NOTE | 2019-02-06 13:03 | P.OP ---
Description of Procedure: Date of Procedure: 02/06/2019 Preoperative Diagnosis: Left Internal carotid artery stenosis >70% Postoperative Diagnosis: Same Procedure(s) Performed: Left carotid endarterectomy with patch angioplasty Anesthesia: MIKE Surgeon: Jeffry Das Estimated Blood Loss (ml): 30 IV Fluids: 900 mL Urine Output: 500 mL Pathology: Left carotid plaque Condition: stable Disposition: PACU Indications for Procedure: 68-year-old female presented originally to the office secondary to carotid stenosis seen on MRA. Patient had significant stenosis in the left internal carotid artery measuring greater than 70%. She underwent carotid Doppler which demonstrated 80-99% stenosis. We did discuss options including carotid endarterectomy as well as medical management. Patient would like to continue with carotid endarterectomy with patch angioplasty. All risks benefits and competitions were discussed in full detail. She presents to the operating room for such procedure. Description of Procedure: After written informed consent was obtained the patient all risks benefits and competitions were described the patient is brought to the operative suite and laid in a supine position. The area of the neck was prepped and draped in usual sterile fashion after appropriate anesthetic was performed per the anesthesiologist. A timeout was performed in normal fashion antibiotics were administered prior to incision. An oblique incision was then created just anterior to the sternocleidomastoid musculature with a 10 blade scalpel and dissection was carried down to the carotid sheath. The carotid sheath was then entered after facial vein was located and suture ligated in normal fashion. The common carotid, internal carotid, external carotid and superior thyroid arteries were located and dissected free in a meticulous fashion circumferentially and controlled with vessel loops. Attention was then placed to locating the vagus nerve as well as hypoglossal nerve which were both spared. Once controlled patient was administered heparin and followed with ACTs for appropriate heparinization. Once ACT was above 200 the proximal and distal aspects of the dissection were then controlled with vascular clamps. Arteriotomy was then created with 11 blade scalpel and extended with Yao Montesinos scissors. Utilizing pressure tubing stump pressures were obtained and were 100/60. No shunt was required and endarterectomy was then performed with a [place] and elevator. The plaque was then feathered at the distal aspect and the internal carotid artery and removed. The area was copiously irrigated with heparinized saline and all free debris was removed. A 7-0 Prolene suture was then placed to tack the distal aspect of the dissection at the internal carotid artery. A 1 x 6 cm bovine pericardial patch was then chosen and patch angioplasty was performed with 6-0 Prolene suture in a running fashion. Prior to last sutures being placed the inflow was released flushing any free debris out of the patch. This was reclamped and the internal carotid artery was released revealing good brisk flow and was once again reclamped. The external carotid and superior thyroid artery were then released followed by the common carotid artery to allow any free debris to be flushed into the external system. Final sutures were placed and secured. I nternal carotid artery control was then released. Good pulsatile flow was noted through the patch and a Doppler was utilized demonstrating good brisk flow into the internal, external carotid arteries without any signs of obstruction. Hemostasis was then assured with Surgicel. A 10-Kiswahili YASMEEN drain was then placed in normal fashion and secured with 3-0 nylon suture. The incision was then closed in a multilayer fashion after hemostasis was assured. The skin was then cleansed and dressings were placed. Patient tolerated the procedure well and was following commands and moving all extremities. Patient was then sent to PACU for recovery.
[2019-02-06 14:44] LABS: Glucose,Whole Blood 97 mg/dL (75-99)
[2019-02-06 15:18] LABS: Basophils % (A) 0 %; Eosinophils # (A) 0.1 k/uL (0-0.7); Eosinophils % (A) 1 %; HCT 35.5 % (34.0-46.0); HGB 11.5 gm/dL (11.4-16.0); Lymphocytes # (A) 2.2 k/uL (1.0-4.8); Lymphocytes % (A) 16 %; MCH 28.4 pg (25.0-35.0); MCHC 32.5 g/dL (31.0-37.0); MCV 87.3 fL (80.0-100.0); Mean Platelet Volume 5.6; Monocytes # (A) 0.7 k/uL (0-1.0); Monocytes % (A) 5 %; Neutrophils % (A) 77 %; Platelet Count 351 k/uL (150-450); RBC 4.06 m/uL (3.80-5.40); RDW 15.2 % (11.5-15.5); WBC 14.3 k/uL (3.8-10.6)
--- NOTE | 2019-02-06 17:52 | P.CNPUL ---
History of Present Illness Consult date: 02/06/19 Requesting physician: Jeffry Das Reason for consult: other (Critical care management) Chief complaint: Carotid stenosis History of present illness: This is a very pleasant 68-year-old female patient who follows with Dr. Mcclain as her primary care physician. She has a history of hypertension, hypertensive cardiovascular disease, this cancer in 2006 status post left mastectomy with lymph node dissection followed by chemotherapy, chronic and ongoing tobacco dependence. She was recently found to have left internal carotid stenosis of 80-99%. She was admitted here electively for a left carotid endarterectomy and patch angioplasty that was performed today by Dr. Das. She is seen in the intensive care unit postoperatively. She is currently awake and alert in no acute distress. No neurologic deficits. Equal and strong bilateral hand grasp. Moving all 4 extremities. Equal facial expressions. She is having some left-sided surgical site pain. Skin is dry and intact. YASMEEN drain in place. She is maintaining O2 saturations in the mid 90s on 2 L/m per nasal cannula. Afebrile. Hemodynamically stable. White count 14.3. Hemoglobin 11.5. Blood glucose 97. Currently receiving lactated Ringer's at 100 ML's per hour. Review of Systems REVIEW OF SYSTEMS: CONSTITUTIONAL: Denies any recent significant weight loss or weight gain. EYES: Denies change in vision. EARS, NOSE, MOUTH, THROAT: Left sided surgical site pain. Slight headache.. CARDIOVASCULAR: Denies chest pain, palpitations or syncopal episodes. RESPIRATORY: Denies shortness of breath, cough, congestion or hemoptysis. GASTROINTESTINAL: Denies change in appetite, denies abdominal pain GENITOURINARY: Denies hematuria, denies infections. MUSKULOSKELETAL: Denies pain, denies swelling. INTEGUMENTARY: Denies rash, denies eczema. NEUROLOGICAL: Denies recent memory loss, no recent seizure activity. PSYCHIATRIC: Denies anxiety, denies depression. HEMATOLOGIC/LYMPHATIC: Denies anemia, denies enlarged lymph nodes. Past Medical History Past Medical History: Cancer, CVA/TIA, Hypertension, Osteoarthritis (OA) Additional Past Medical History / Comment(s): Left Breast cancer 2006, nerve damage down left arm from lymph node removal per pt., hiatal hernia which causes frequent abd. pain per pt., urinary incontinence, TIA yrs. ago History of Any Multi-Drug Resistant Organisms: None Reported Past Surgical History: Breast Surgery, Cholecystectomy, Hysterectomy Additional Past Surgical History / Comment(s): left mastectomy w/lymph node diss ection, cataract surgery, lump removed from back Past Anesthesia/Blood Transfusion Reactions: Previous Problems w/ Anesthesia Additional Past Anesthesia/Blood Transfusion Reaction / Comment(s): states doesn't need much anesthesia to be put under Smoking Status: Current every day smoker - Past Family History Mother Family Medical History: Cancer Additional Family Medical History / Comment(s): Mother at age 76 from breast cancer with metastatic disease to bone and brain. Father Family Medical History: Myocardial Infarction (OK) Additional Family Medical History / Comment(s): Father at age 73 from myocardial infarction. Brother(s) Family Medical History: Myocardial Infarction (OK) Additional Family Medical History / Comment(s): She had 3 brothers and one of them with OK still alive other one is healthy and third one committed suicide. Sister(s) Family Medical History: Hypertension Additional Family Medical History / Comment(s): Patient has 3 sisters with hypertension. Daughter(s) Family Medical History: No Reported History Additional Family Medical History / Comment(s): Patient has one daughter with no major medical problems. Medications and Allergies Home Medications Medication Instructions Recorded Confirmed Type Letrozole [Femara] 2.5 mg PO DAILY 07/30/17 01/30/19 History amLODIPine [Norvasc] 10 mg PO DAILY 07/30/17 01/30/19 History Clopidogrel [Plavix] 75 mg PO DAILY 01/30/19 02/06/19 History Allergies Allergy/AdvReac Type Severity Reaction Status Date / Time aspirin Allergy Unknown Verified 01/30/19 15:28 Penicillins Allergy Unknown Verified 01/30/19 15:28 tetanus and diphtheria Allergy Unknown Verified 01/30/19 15:28 toxoids steroids AdvReac severe Uncoded 01/30/19 15:28 muscle pain Physical Exam Vitals: Vital Signs Temp Pulse Pulse Resp BP BP Pulse Ox 02/06/19 14:13 71 16 108/50 97 02/06/19 13:58 72 16 110/53 98 02/06/19 13:43 76 16 111/50 97 02/06/19 13:28 71 16 109/50 99 02/06/19 13:13 98.2 F 88 16 125/57 100 02/06/19 10:16 78 18 122/60 97 02/06/19 09:11 75 18 125/56 97 02/06/19 08:27 98.7 F 90 18 158/76 97 Intake and Output 02/06/19 02/06/19 02/06/19 06:59 14:59 22:59 Intake Total 1456 Output Total 680 Balance 776 Intake: IV 1456 Output: Urine 650 Estimated Blood Loss 30 GENERAL EXAM: Alert, oriented 3, comfortable in no apparent distress. HEAD: Normocephalic. EYES: Normal reaction of pupils, equal size. NOSE: Clear with pink turbinates. THROAT: No erythema or exudates. NECK: Left neck dressing intact, YASMEEN drain in place. No masses, no JVD. CHEST: No chest wall deformity. LUNGS: Equal air entry with no crackles, wheeze, rhonchi or dullness. CVS: S1 and S2 normal with no audible murmur, regular rhythm. ABDOMEN: No hepatosplenomegaly, normal bowel sounds, no guarding or rigidity. SPINE: No scoliosis or deformity SKIN: No rashes CENTRAL NERVOUS SYSTEM: No focal deficits, tone is normal in all 4 extremities. EXTREMITIES: There is no peripheral edema. No clubbing, no cyanosis. Peripheral pulses are intact. Results - Laboratory Findings CBC and BMP: 02/06/19 14:57 Abnormal lab findings: Abnormal Labs 02/06/19 14:57 WBC 14.3 H Neutrophils # 11.0 H Assessment and Plan Assessment: 1 left carotid stenosis, status post left carotid endarterectomy with patch angioplasty, postoperative day #0. 2 chronic and ongoing tobacco dependence 3 hypertension with hypertensive cardiovascular disease 4 history of breast cancer status post mastectomy and chemotherapy in 2006 5 peripheral neuropathy 6 generalized anxiety disorder Plan: The patient was seen and evaluated by Dr. Odell. She has been having issues with hypotension and is now requiring low-dose norepinephrine. Continue lactated Ringer's at 100 ML's per hour. Continue frequent neuro checks. We'll continue to monitor her closely here in the intensive care unit. We'll make further recommendations based on her clinical status. I, the cosigning physician, performed a history & physical examination of the patient. Lungs sounds are clear. Maintaining good O2 saturations in the 90s on room air. I discussed the assessment and plan of care with my nurse practitioner, Arminda Owen. I attest to the above note as dictated by her. Time with Patient: Greater than 30
[2019-02-06 18:48] LABS: African American GFR (CKD) >90 (>60 ml/min/1.73 sqM); Anion Gap 3 mmol/L; Blood Urea Nitrogen 11 mg/dL (7-17); Calcium 8.7 mg/dL (8.4-10.2); Carbon Dioxide 27 mmol/L (22-30); Chloride 112 mmol/L (98-107); Glucose 97 mg/dL (74-99); Potassium 3.7 mmol/L (3.5-5.1); Sodium 142 mmol/L (137-145)
[2019-02-06] MEDS: HEPARIN SODIUM,PORCINE 5,000 UNIT/ML 1 ML VIAL SQ SCH ×2 (18:51→22:58)
[2019-02-06] MEDS ORDERED: NOREPINEPHRINE 4 MG in SODIUM CHLORIDE 0.9% 250 ML IV SCH (19:45)
[2019-02-07 06:16] LABS: HCT 31.4 % (34.0-46.0); HGB 10.5 gm/dL (11.4-16.0); MCH 29.7 pg (25.0-35.0); MCHC 33.3 g/dL (31.0-37.0); MCV 89.1 fL (80.0-100.0); Mean Platelet Volume 5.2; Platelet Count 312 k/uL (150-450); RBC 3.52 m/uL (3.80-5.40); RDW 15.1 % (11.5-15.5); WBC 9.6 k/uL (3.8-10.6)
[2019-02-07 06:31] LABS: African American GFR (CKD) >90 (>60 ml/min/1.73 sqM); Anion Gap 4 mmol/L; Blood Urea Nitrogen 9 mg/dL (7-17); Calcium 8.5 mg/dL (8.4-10.2); Carbon Dioxide 26 mmol/L (22-30); Chloride 109 mmol/L (98-107); Glucose 85 mg/dL (74-99); Potassium 4.3 mmol/L (3.5-5.1); Sodium 139 mmol/L (137-145)
--- NOTE | 2019-02-07 07:27 | XR ---
EXAMINATION TYPE: XR chest 1V portable DATE OF EXAM: 02/07/2019 COMPARISON: 07/22/2017 HISTORY: Exertional dyspnea TECHNIQUE: Single frontal view of the chest is obtained. FINDINGS: New linear right infrahilar opacity is seen as well as linear left basilar opacity. Leads overlie the chest partially obscuring visualization. No pneumothorax or pleural effusion seen. Surgic al clips within the left chest wall soft tissues. Diffuse osseous demineralization. Stable cardiomedi astinal silhouette, mildly enlarged. IMPRESSION: Linear bibasilar opacities are favored to represent atelectasis although could represent pneumonia in the appropriate clinical setting.
[2019-02-07] MEDS: LACTATED RINGERS 1,000 ML IV SCH ×2 (07:54→07:57)
[2019-02-07] MEDS: HEPARIN SODIUM,PORCINE 5,000 UNIT/ML 1 ML VIAL SQ SCH (07:56)
[2019-02-07] MEDS ORDERED: ALBUTEROL NEBULIZED 2.5 MG/3 ML INHALATION PRN (10:57)
[2019-02-07 11:57] VITALS: BMI 26.6
[2019-02-07 14:14] VITALS: BP 108/66; PULSE 93; RESP 22; TEMP 99.1
--- NOTE | 2019-02-07 16:40 | P.PN ---
Subjective Progress Note Date: 02/07/19 On 02/07/2001 following carotid endarterectomy. The patient is doing well. She is on room air oxygen pages a chronic smoker in she has some limited congested cough. The IV has infiltrated in the right upper extremity and IV will be taken off. Arthritis been discontinued. She is postmastectomy and she has some limited lymphedema left upper extremity. Surgical wound site over the left neck area dry clean and intact. No altered mentation. Normal gait. No focal logical deficits. No confusion. BP is under control. The patient is tolerating his diet. No other significant events over the past 24 hours. Objective - Vital Signs Vital signs: Vital Signs Temp 99.1 F 02/07/19 12:00 Pulse 93 02/07/19 14:00 Resp 22 02/07/19 14:00 BP 108/66 02/07/19 14:00 Pulse Ox 92 L 02/07/19 14:00 Intake & Output 02/06/19 02/07/19 02/07/19 18:59 06:59 18:59 Intake Total 1876 1120 700 Output Total 800 1166 215 Balance 1076 -46 485 Weight 70.6 kg 70.6 kg Intake: IV 1456 1020 400 Lactated Ringers 1,000 ml 1000 400 @ 100 mls/hr IV .Q10H MALA Rx#:[id number] Lactated Ringers 1,000 ml 20 @ 20 mls/hr IV .Q24H MALA Rx#:[id number] Intake, IV Titration 300 100 300 Amount Lactated Ringers 1,000 ml 300 100 @ 100 mls/hr IV .Q10H MALA Rx#:[id number] Lactated Ringers 1,000 ml 300 @ 20 mls/hr IV .Q24H MALA Rx#:[id number] Oral 120 Output: Drainage 45 15 Left Neck 45 15 Urine 770 1121 200 Estimated Blood Loss 30 Other: Voiding Method Indwelling Catheter Indwelling Catheter Bedside Commode # Voids 1 # Bowel Movements 1 ABP, PAP, CO, CI - Last Documented Arterial Blood Pressure 87/39 - Exam GENERAL EXAM: Alert, oriented 3, comfortable in no apparent distress. HEAD: Normocephalic. EYES: Normal reaction of pupils, equal size. NOSE: Clear with pink turbinates. THROAT: No erythema or exudates. NECK: Left neck dressing intact, No masses, no JVD. The surgical wound site over the left neck area dry clean and intact. CHEST: No chest wall deformity. LUNGS: Equal air entry with no crackles, wheeze, rhonchi or dullness. CVS: S1 and S2 normal with no audible murmur, regular rhythm. ABDOMEN: No hepatosplenomegaly, normal bowel sounds, no guarding or rigidity. SPINE: No scoliosis or deformity SKIN: No rashes CENTRAL NERVOUS SYSTEM: No focal deficits, tone is normal in all 4 extremities. EXTREMITIES: There is no peripheral edema. No clubbing, no cyanosis. Peripheral pulses are intact. - Labs CBC & Chem 7: 02/07/19 05:37 02/07/19 05:37 Labs: Abnormal Lab Results - Last 24 Hours (Table) 02/06/19 02/07/19 02/07/19 Range/Units 18:30 05:37 05:37 RBC 3.52 L (3.80-5.40) m/uL Hgb 10.5 L (11.4-16.0) gm/dL Hct 31.4 L (34.0-46.0) % Chloride 112 H 109 H (98-107) mmol/L Assessment and Plan Plan: 1 left carotid stenosis, status post left carotid endarterectomy with patch angioplasty, postoperative day #1 2 chronic and ongoing tobacco dependence 3 hypertension with hypertensive cardiovascular disease 4 history of breast cancer status post mastectomy and chemotherapy in 2006 5 peripheral neuropathy 6 generalized anxiety disorder 7 infiltrated IV in the right upper extremity. Plan Discontinue all IVs. Ambulate this patient the hallway. Keep the arm on the right elevated. Local wound care and the surgical wound site over the left neck area dry clean and intact. Discharge planning is in progress. Hemodynamically stable.
== END 2019-02-07 15:33 | disposition home or self-care (01) | DRG 39 ==
LOC: 2ORMAIN 07:33 → 2SICU 13:37
PROVIDERS: ADMIT Surgery; ATTEND Surgery
PROC: 03UL0KZ Supplement Left Internal Carotid Artery with Nonautologous Tissue Substitute, Open Approach (ICD-10-PCS; 2019-02-06)
PROC: 03CL0ZZ Extirpation of Matter from Left Internal Carotid Artery, Open Approach (ICD-10-PCS; principal; 2019-02-06 09:00)
DX: I65.22 Occlusion and stenosis of left carotid artery (principal); G62.9 Polyneuropathy, unspecified; C50.912 Malignant neoplasm of unspecified site of left female breast; I11.9 Hypertensive heart disease without heart failure; I97.2 Postmastectomy lymphedema syndrome; G44.209 Tension-type headache, unspecified, not intractable; J41.0 Simple chronic bronchitis; F41.1 Generalized anxiety disorder; K44.9 Diaphragmatic hernia without obstruction or gangrene; R32 Unspecified urinary incontinence; M19.90 Unspecified osteoarthritis, unspecified site; F17.210 Nicotine dependence, cigarettes, uncomplicated; Z71.6 Tobacco abuse counseling; Z79.811 Long term (current) use of aromatase inhibitors; Z79.02 Long term (current) use of antithrombotics/antiplatelets; Z79.899 Other long term (current) drug therapy; Z86.73 Personal history of transient ischemic attack (TIA), and cerebral infarction without residual deficits; Z90.49 Acquired absence of other specified parts of digestive tract; Z90.710 Acquired absence of both cervix and uterus; Z90.12 Acquired absence of left breast and nipple; Z92.21 Personal history of antineoplastic chemotherapy; Z98.51 Tubal ligation status; Z98.49 Cataract extraction status, unspecified eye; Z98.890 Other specified postprocedural states; Z88.6 Allergy status to analgesic agent; Z88.0 Allergy status to penicillin; Z88.7 Allergy status to serum and vaccine; Z88.8 Allergy status to other drugs, medicaments and biological substances; Z82.49 Family history of ischemic heart disease and other diseases of the circulatory system; Z80.3 Family history of malignant neoplasm of breast; Z80.8 Family history of malignant neoplasm of other organs or systems; Z81.8 Family history of other mental and behavioral disorders
CPT/HCPCS: 71045; 80048; 85025; 85027; 86850; 86900; 86901; 88304

== ENCOUNTER → 2020-01-29 | Outpatient (CLI) | payer MEDICARE ==
[2020-01-29 17:20] LABS: African American GFR (CKD) >90 (>60 ml/min/1.73 sqM); Blood Urea Nitrogen 12 mg/dL (7-17); Non-African American GFR(CKD) >90 (>60 ml/min/1.73 sqM)
--- NOTE | 2020-01-29 22:35 | CT ---
EXAMINATION TYPE: CT chest w con DATE OF EXAM: 01/29/2020 COMPARISON: Outside chest x-ray January 25, 2020 and older studies. Neck CT December 29, 2018 HISTORY: lung nodule, abnormal x-ray. CT DLP: 330.7 mGycm. Automated Exposure Control for Dose Reduction was Utilized. TECHNIQUE: CT scan of the thorax is performed following with IV Contrast, patient injected with 100 mL of Isovue 300. FINDINGS: LUNGS: Mild biapical pleural/parenchymal scarring. Confirmation of the posterior lobulated inferior l eft upper lobe mass measuring 4.2 x 2.9 cm axial image 23 x 4.1 cm craniocaudal dimension sagittal im age 87 abutting the major fissure with anterior-inferior small lucent component. There is adjacent in ferior lateral opacity presumed atelectatic change. The lesion is new from neck CT December 29, 2018 . 1There is a smaller 9 mm lingular groundglass nodule axial image 34. Right lung is clear. No pleura l effusion or pneumothorax is seen bilaterally. MEDIASTINUM: There are no greater than 1 cm hilar or mediastinal lymph nodes. Prominent but subcentim eter paratracheal and pericarinal lymph nodes along with left hilar lymph nodes. No cardiomegaly or pericardial effusion is seen. At least moderate Coronary artery calcification is present which is no dale marker for underlying coronary artery disease. Ascending aorta measures up to 3.6 cm in diameter. There is heterogeneity of the thyroid with isthmus substernal extension. There are nodules greater t almanzar 1 cm. Follow-up advised. OTHER: Demineralization of osseous structures with exaggerated thoracic curvature. Left breast surgic ally absent. Surgical clips left axillary region seen. Ectatic abdominal aorta partially imaged with moderate mixed plaque. IMPRESSION: 1. Confirmation of suspicious new 4.2 cm left upper lobe mass worrisome for neoplasm. Advised PET/CT and/or imaging guided sampling. 2. Thyroid nodularity not significantly changed from neck CT December 2018. Need to further investig ate by ultrasound should be based on clinical correlation.
== END | disposition home or self-care (01) ==
LOC: RADCTMAIN 15:22
PROVIDERS: ATTEND Internal Medicine
DX: R91.1 Solitary pulmonary nodule (principal); Z88.0 Allergy status to penicillin; Z88.8 Allergy status to other drugs, medicaments and biological substances; Z88.2 Allergy status to sulfonamides
CPT/HCPCS: 82565; 84520; 71260; 36415; Q9967

== ENCOUNTER → 2020-02-01 | Outpatient (CLI) | payer MEDICARE ==
--- NOTE | 2020-02-04 17:03 | PE ---
EXAMINATION TYPE: PET CT fusion skull to thigh DATE OF EXAM: 02/01/2020 COMPARISON: CT chest 01/29/2020 Prior PET/CT: None HISTORY: Lung cancer TECHNIQUE: Following the intravenous administration of 11.41 mCi of F-18 FDG, whole body images are performed from the skull base to the midthigh. Images are reviewed on the computer in the coronal, a xial, and sagittal planes. Reconstructed rotating images are created on independent workstation and reviewed on the computer. A localization and attenuation correction CT is performed in conjunction with the PET scan. DLP: 303.84 mGycm SCAN: Initial Blood glucose: 87 mg/dL Average Mediastinum SUV: 1.6 Average Liver SUV: 2.23 FINDINGS: NECK: No abnormal uptake THORAX: There is a hyperintense tense mass within the left posterolateral upper lobe. SUV value of 7 .51. Central cavitation may be necrosis. No suspicious hyperintensity within the mediastinum is evident. ABDOMEN: No abnormal uptake. The adrenal glands appear normal PELVIS: No abnormal uptake OSSEOUS STRUCTURES: Some very subtle uptake along the anterior left femoral neck may be present. This is more intermediate at 2.26 SUV may be some inflammatory or muscle signal. LOCALIZATION CT: The thyroid isthmus is enlarged measuring 2.2 cm and extends to the sternoclavicular notch. Lung mass measures 4.7 x 3.1 cm on mediastinal windows. Coronary artery calcifications presen t. COMPARISON: CT findings appear similar over the interval. IMPRESSION: 1. Hyperintense uptake within the left upper lobe mass compatible with neoplasm. 2. No suspicious uptake to suggest metastatic disease by PET CT.
== END | disposition home or self-care (01) ==
LOC: RADPETMAIN 12:40
PROVIDERS: ATTEND Internal Medicine
DX: C34.12 Malignant neoplasm of upper lobe, left bronchus or lung (principal)
CPT/HCPCS: 78815; A9552

== ENCOUNTER 2020-02-18 08:58 | Day surgery (SDC) | payer MEDICARE ==
[2020-02-18 09:46] VITALS: RESP 18; TEMP 98.3
[2020-02-18 09:49] LABS: Mean Platelet Volume 6.7; Platelet Count 527 k/uL (150-450)
[2020-02-18 09:56] LABS: Prothrombin Time 10.7 sec (9.0-12.0)
--- NOTE | 2020-02-18 11:21 | XR ---
EXAMINATION TYPE: XR chest 1V portable DATE OF EXAM: 02/18/2020 COMPARISON: Prior chest x-ray 02/07/2019 HISTORY: Status post left lung biopsy TECHNIQUE: Single frontal view of the chest is obtained. FINDINGS: There is no pneumothorax or left pleural effusion. Left upper lobe lung mass is present. C ardiac mediastinal silhouette is stable. IMPRESSION: No evident complication status post left lung biopsy.
--- NOTE | 2020-02-18 11:37 | CT ---
EXAMINATION TYPE: CT biopsy lung LT DATE OF EXAM: 02/18/2020 HISTORY: Left upper lobe lung mass COMPARISON: Lung cancer, lung mass Maximal barrier technique was utilized, hand hygiene obtained with soap and water. The skin overlyin g a suitable path to the lesion was localized using CT and the overlying skin was prepped and draped. Lidocaine used for local anesthesia. A skin jasiel made with a scalpel. Using CT guidance, access w as gained to the lesion with a 19-gauge right needle. Core specimen submitted to cytology using a 20 -gauge core needle. 3 pass(es) performed in all. Following the procedure no immediate complications . The patient is discharged in stable condition. Hemostasis achieved. IMPRESSION: SUCCESSFUL CT GUIDED CORE BIOPSY left upper lobe lung mass. PATHOLOGY PENDING. THIS PROCEDURE WAS P ERFORMED BY THE UNDERSIGNED.
[2020-02-18 12:49] VITALS: BP 98/55; PULSE 76
--- NOTE | 2020-02-18 13:14 | XR ---
EXAMINATION TYPE: XR chest 1V portable DATE OF EXAM: 02/18/2020 COMPARISON: 02/18/2020 HISTORY: Post lung biopsy TECHNIQUE: Single frontal view of the chest is obtained. FINDINGS: There is no focal air space opacity, pleural effusion, or pneumothorax seen. The cardiac silhouette size is within normal limits. The osseous structures are intact. Hyperinflation suggests COPD Please a degree of chronic interstitial lung disease. Ectasia of the aorta and curvature of the spine noted. Diffuse osteopenia and arthropathy of the shoulders. Surgical clips overlying the left axilla and there appear to be chronic left-sided rib deformities an d a large left upper lobe lung mass. IMPRESSION: 1. No sizable pneumothorax. 2. Large left upper lobe lung mass. 3. Correlate for COPD and chronic interstitial lung disease.
== END 2020-02-18 13:00 | disposition home or self-care (01) ==
LOC: RADPROMAIN 08:58
PROVIDERS: ATTEND Internal Medicine
DX: C34.12 Malignant neoplasm of upper lobe, left bronchus or lung (principal)
CPT/HCPCS: 36415; 71045; 77012; 85049; 85610; 88305; 88341; 88342

== ENCOUNTER → 2020-03-11 | Outpatient (CLI) | payer MEDICARE ==
[2020-03-11 11:28] LABS: Basophils # (A) 0.1 k/uL (0-0.2); Basophils % (A) 1 %; Eosinophils # (A) 0.3 k/uL (0-0.7); Eosinophils % (A) 2 %; HGB 11.2 gm/dL (11.4-16.0); Lymphocytes % (A) 10 %; MCH 27.3 pg (25.0-35.0); MCHC 32.1 g/dL (31.0-37.0); MCV 85.1 fL (80.0-100.0); Mean Platelet Volume 6.4; Monocytes # (A) 1.1 k/uL (0-1.0); Monocytes % (A) 5 %; Neutrophils # (A) 16.5 k/uL (1.3-7.7); Neutrophils % (A) 82 %; Platelet Count 520 k/uL (150-450); RBC 4.12 m/uL (3.80-5.40); RDW 14.6 % (11.5-15.5); WBC 20.1 k/uL (3.8-10.6)
[2020-03-11 11:40] LABS: African American GFR (CKD) >90 (>60 ml/min/1.73 sqM); Anion Gap 7 mmol/L; Blood Urea Nitrogen 10 mg/dL (7-17); Carbon Dioxide 25 mmol/L (22-30); Chloride 102 mmol/L (98-107); Glucose 102 mg/dL (74-99); Non-African American GFR(CKD) >90 (>60 ml/min/1.73 sqM); Potassium 4.2 mmol/L (3.5-5.1); Sodium 134 mmol/L (137-145)
[2020-03-11 12:26] LABS: Partial Thromboplastin Time 24.9 sec (22.0-30.0); Prothrombin Time 10.2 sec (9.0-12.0)
== END | disposition home or self-care (01) ==
LOC: LABPAT 09:53
PROVIDERS: ATTEND Thoracic Surgery (Cardiothoracic Vascular Surgery)
DX: Z01.818 Encounter for other preprocedural examination (principal); C34.90 Malignant neoplasm of unspecified part of unspecified bronchus or lung; Z20.828 Contact with and (suspected) exposure to other viral communicable diseases
CPT/HCPCS: 80051; 82565; 82947; 84520; 85025; 85610; 85730; 93005; U0003

== ENCOUNTER 2020-03-13 05:52 | Inpatient (IN) | payer MEDICARE ==
[2020-03-11 13:29] VITALS: BMI 23.0
[~2020-03-13 05:52] MED LIST changes: -DEXAMETHASONE SOD PHOSPHATE 10 MG/ML 1 ML VIAL IV ONE; +DEXAMETHASONE SOD PHOSPHATE 4 MG/ML 1 ML VIAL IV ONE; +LACTATED RINGERS 1,000 ML IV SCH; +LIDOCAINE 1% (10MG/ML) FOR IV START INTRADERMA PRN; -LIDOCAINE 1% 20 ML VIAL (10MG/ML) FOR IV START INTRADERMA PRN; +Pre Op ABX Message 1 EACH MISC MISCELLANE ONE; -SCOPOLAMINE 1.5MG/72HR PATCH TRANSDERM ONE
[2020-03-13] MEDS ORDERED: CLINDAMYCIN 900 MG in DEXTROSE 5% IN WATER 50 ML IVPB PRN ×2 (06:00)
[2020-03-13] MEDS ORDERED: GLYCOPYRROLATE 0.2 MG/ML 2 ML VIAL ONE (07:15)
[2020-03-13] MEDS ORDERED: WATER FOR INJECTION, STERILE 10 ML VIAL IV ONE (07:15)
[2020-03-13] MEDS ORDERED: PHENYLEPHRINE 10 MG/ML VIAL ONE (07:15)
[2020-03-13] MEDS ORDERED: LIDOCAINE 1% INJ 10MG/ML (20 ML MDV) ONE (07:15)
[2020-03-13] MEDS ORDERED: HYDROmorphone (PF) 1 MG/ML ONE (07:15)
[2020-03-13] MEDS ORDERED: fentaNYL (PF) 50 MCG/ML 2 ML AMP IV ONE (07:15)
[2020-03-13] MEDS ORDERED: ROCURONIUM 10 MG/ML (10 ML VIAL) IV ONE (07:15)
[2020-03-13] MEDS ORDERED: SUCCINYLCHOLINE CHLORIDE 100 MG/5 ML SYR IV ONE (07:15)
[2020-03-13] MEDS ORDERED: NEOSTIGMINE 1 MG/ML 10 ML VIAL ONE (07:15)
[2020-03-13] MEDS ORDERED: fentaNYL (PF) 50 MCG/ML 2 ML AMP ONE (07:15)
[2020-03-13] MEDS ORDERED: ePHEDrine SULFATE/0.9% NACL/PF 50 MG/5 ML SYRINGE IV ONE (07:15)
[2020-03-13] MEDS ORDERED: BUPIVACAINE (PF) 0.5% 30 ML VIAL SQ ONE ×3 (08:09→13:22)
--- NOTE | 2020-03-13 08:20 | P.ANPRN ---
Procedure Note - Anesthesia - Invasive Line Right Arterial Line Time Out Performed: Yes Date of Procedure: 03/13/20 Time of Procedure: 06:51 Location of Patient: PreOp Preparation: Sterile Prep, Sterile Dressing Arterial Line Location: Brachial Ultrasound Used: Yes Purpose - Visualization and Identification of Vasculature: Yes Needle Guage: 20g Image Stored and Saved: No (unable to print image) Narrative: Central line placement per sterile protocol utilized. Right radial arterial line attempted 3. Small thready vessel unable to cannulate. Moved brachial one attempt with ultrasound. Unable to save picture
[2020-03-13] MEDS ORDERED: LACTATED RINGERS 1,000 ML IV ONE ×2 (09:15→13:15)
--- NOTE | 2020-03-13 13:58 | P.OP ---
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 This was biopsy-proven to be squamous cell carcinoma. Computed tomography scan and PET scan were negative for metastasis. Case was discussed with Dr. Chow and to whether to perform the EBUS and he did not feel it was indicated. She therefore opted to proceed with elective robotic upper lobectomy. Operative Findings: The posterior portion of the left upper lobe was densely adherent to the pleural space. Fissures were also densely adherent. There was extensive anthracotic adenopathy. Dissection in the hilum was quite difficult due to dense adhesive disease. Description of Procedure: The patient was brought to the operating room, placed supine on the operating table anesthetized and intubated. Double lumen endotracheal tube was placed in position 5 with fiberoptic bronchoscopy. Patient was turned into the right lateral decubitus position and appropriately positioned for robotic lobectomy. Left chest was sterilely prepped and draped. Standard robotic ports were placed in the eighth interspace and a working port was placed in the 10th interspace. The robot was docked and we explored the chest. The adhesions to the chest wall were taken down with an extrapleural dissection and electrocautery. We then mobilized the inferior pulmonary ligament up to the inferior pulmonary vein and continued posteriorly dissecting out the level VIII and level VII lymph nodes of the level lymph nodes. We then removed our dissection anteriorly and dissected out the superior pulmonary vein ligating and dividing it with a robotic stapler. Dissection was carried onto the pulmonary artery and the pulmonary bronchus. We encircled what we believed was the left upper lobe bronchus and ligated and divided it. As we further dissected we realized we dissected left main stem bronchus. We now dissected out the upper lobe bronchus and ligated and divided it with a robotic stapler. Level XI and 10 lymph nodes were resected. We now took pulmonary artery branches leading to the left upper lobe. This was done with a robotic stapler. We now divided the stapled left mainstem bronchus staple lines proximally and distally and using interrupted 4-0 Vicryl suture reanastomose the left mainstem bronchus. This proceeded without event. On completion we checked for air leak and didn't see any. Robot was now undocked and we completed the fissures with thoracoscopic approach using multiple firings of an endo RONEL 60 black stapler. Specimen was then placed into an Endo Catch bag and the working port incision enlarged slightly. We could not successfully bring the specimen out with the Endo Catch bag. Was sent for permanent section. 28-Lao chest tube was placed through the anteriormost incision and positioned posterior apically. It was secured with an 0 Ethibond suture. The lung ventilation was begun. The incisions were closed with layers of Vicryl suture. Sterile dressings were applied. Patient was turned supine and intubated with an 8 mm tube. Fiberoptic bronchoscopy demonstrated clear airway and patent anastomosis with no evidence of defect in the anastomosis. Patient was then awakened and transferred to recovery in stable condition.
--- NOTE | 2020-03-13 14:46 | XR ---
EXAMINATION TYPE: XR chest 1V portable DATE OF EXAM: 03/13/2020 COMPARISON: 02/18/2020 INDICATION: Left upper lobectomy TECHNIQUE: Single frontal view of the chest is obtained. FINDINGS: The heart size is normal. The pulmonary vasculature is normal. No pneumothorax is evident. Previous mass has been resected. Postsurgical sutures in the upper left l efe field. There is a small left apical pneumothorax present. Left-sided chest tube directed towards the left apex present. Subcutaneous emphysema is present. IMPRESSION: 1. Small pneumothorax post lobectomy
--- NOTE | 2020-03-13 15:59 | P.CNPUL ---
History of Present Illness Consult date: 03/13/20 Reason for consult: lung mass History of present illness: 69-year-old male patient was being seen in intensive care unit following thoracic surgery. The patient is a diagnosed case of squamous cell carcinoma and a diagnosis was established by fine-needle aspirate. The patient can afford centimeter mass in the left upper lobe. The patient underwent a robotic- assisted thoracoscopic left upper lobe resection with mediastinal lymph node dissection and repair of the left mainstem bronchus. Currently she is postop is #0. The patient's estimated blood loss was 50 mL. The patient received a total of 2 L of fluids intraoperatively. The patient's chest x-ray for now is showing a subcutaneous emphysema in the left apical area. Chest tube is in a good location. The patient has positive air leak. Output from the chest was done 100 mL since the patient arrived from the operating room. She is hemodynamically stable. Pain is adequately controlled for now. She'll be going to the intensive care unit. Currently she is on oxygen at 8 L per minute nasal cannula and this was weaned down to 6 L and currently she is down to 2 L. Review of Systems Patient is still drowsy in the recovery room. The for review of system cannot be obtained. positive findings are almost above history of present illness. Past Medical History Past Medical History: Cancer, COPD, Hypertension, Osteoarthritis (OA) Additional Past Medical History / Comment(s): COPD, squamous cell carcinoma of the lung, per his history of breast cancer 2007 post mastectomy. The patient did not require any chemotherapy following that. She also has carotid artery disease and she has undergone previous endarterectomy. History of Any Multi-Drug Resistant Organisms: None Reported Past Surgical History: Breast Surgery, Cholecystectomy, Hysterectomy Additional Past Surgical History / Comment(s): lung bx, cataract surgery,left mastectomy with lymph node dissection,lt carotid endartarectomy Past Anesthesia/Blood Transfusion Reactions: No Reported Reaction Additional Past Anesthesia/Blood Transfusion Reaction / Comment(s): states doesn't need much anesthesia to be put under Smoking Status: Former smoker - Past Family History Mother Family Medical History: Cancer Additional Family Medical History / Comment(s): Mother at age 76 from breast cancer with metastatic disease to bone and brain. Father Family Medical History: Myocardial Infarction (ND) Additional Family Medical History / Comment(s): Father at age 73 from myocardial infarction. Brother(s) Family Medical History: Myocardial Infarction (ND) Additional Family Medical History / Comment(s): She had 3 brothers and one of them with ND still alive other one is healthy and third one committed suicide. Sister(s) Family Medical History: Cancer, Hypertension Additional Family Medical History / Comment(s): Patient has 3 sisters with hypertension. lung cancer Daughter(s) Family Medical History: No Reported History Additional Family Medical History / Comment(s): Patient has one daughter with no major medical problems. Medications and Allergies Home Medications Medication Instructions Recorded Confirmed Type Letrozole [Femara] 2.5 mg PO DAILY 07/30/17 03/13/20 History Clopidogrel [Plavix] 75 mg PO DAILY 01/30/19 03/13/20 History Calcium Carbonate/Vitamin D3 1 each PO DAILY 03/12/20 03/13/20 History [Calcium 600 mg-Vit D3 10Mcg (400 Unit)] Magnesium 250 mg PO DAILY 03/12/20 03/13/20 History Naproxen Sodium [Aleve] 220 mg PO DAILY PRN 03/12/20 03/13/20 History [place]-3 Fatty Acids/Fish Oil [Fish 1 each PO DAILY 03/12/20 03/13/20 History Oil 1,000 mg Softgel] Zinc 50 mg PO DAILY 03/12/20 03/13/20 History Allergies Allergy/AdvReac Type Severity Reaction Status Date / Time aspirin Allergy rectal Verified 03/13/20 06:19 bleeding Penicillins Allergy Anaphylaxis Verified 03/13/20 06:19 tetanus and diphtheria Allergy severe Verified 03/13/20 06:19 toxoids swelling steroids AdvReac severe Uncoded 03/13/20 06:19 muscle pain Physical Exam Vitals: Vital Signs Temp Pulse Pulse Resp BP BP Pulse Ox 03/13/20 15:30 86 16 140/69 96 03/13/20 15:00 78 12 144/63 99 03/13/20 14:45 79 14 156/68 100 03/13/20 14:30 81 12 147/61 152/68 100 03/13/20 14:15 83 12 152/68 100 03/13/20 14:01 96.8 F L 84 10 L 147/72 152/62 100 03/13/20 07:25 70 16 131/61 99 03/13/20 06:30 99.1 F 79 18 131/67 95 Intake and Output 03/13/20 03/13/20 03/13/20 06:59 14:59 22:59 Intake Total 100 2055 Output Total 750 Balance 100 1306 Intake: IV 100 2055 Output: Urine 600 Estimated Blood Loss 150 Other: Weight 62.1 kg Gen. appearance the patient is currently postop, still drowsy under the effect of anesthetics. She is currently on 2 L of oxygen by nasal cannula. She is arousable. Head exam was generally normal. There was no scleral icterus or corneal arcus. Mucous membranes were moist. Neck was supple and without jugular venous distension, thyromegaly, or carotid bruits. Carotids were easily palpable bilaterally. There was no adenopathy. The patient has obvious emphysema over the left anterior neck area which is essentially post surgical in nature.\ Lungs sounds are diminished on the left compared to the right. There is scattered WHEEZE. The patient has a left pleural chest tube. There is positive air leak. Chest tube site is dry clean and intact at this point in time. Cardiac exam revealed the PMI to be normally situated and sized. The rhythm was regular and no extrasystoles were noted during several minutes of auscultation. The first and second heart sounds were normal and physiologic splitting of the second heart sound was noted. There were no murmurs, rubs, clicks, or gallops. Abdominal exam revealed normal bowel sounds. The abdomen was soft, non-tender, and without masses, organomegaly, or appreciable enlargement of the abdominal aorta. Examination of the extremities revealed easily palpable radial, femoral and pedal pulses. There was no cyanosis, clubbing or edema. Examination of the skin revealed no evidence of significant rashes, suspicious appearing nevi or other concerning lesions. Results - Diagnostic Findings Chest x-ray: image reviewed Assessment and Plan Plan: 1 squamous cell carcinoma, and the patient is post robotic-assisted thoracoscopic left upper lobe resection along with mediastinal lymph node dissection. The patient is postop day #0. The preop PET scan was noted. There was a mediastinal density without significant uptake on the PET scan. The patient is currently recovering and the patient currently has a left pleural chest tube in place. There is positive air leak. Pain is under adequate control. 2 COPD, moderate in severity with an FEV1 of 72% of predicted, 1.57 L 3 subcutaneous emphysema over the neck, expected outcomes surgery 4 left sided chest tube, post lobectomy 5 remote history of breast cancer 6 history of carotid artery disease with a previous endarterectomy on the left 7 history of smoking. Plan Start the patient on DuoNeb nebulized 4 times a day and when necessary. Incentive spirometer Monitor air leak from the chest tube Daily chest x-rays IV Dilaudid 0.5 mg every 5 hours on a when necessary basis for pain control Will monitor the patient in the ICU. We'll continue to follow.
[2020-03-13] MEDS ORDERED: ONDANSETRON 4 MG/2 ML VIAL IVP PRN (16:48)
[2020-03-13] MEDS ORDERED: DEXTROSE 5%-0.45% NACL 1,000 ML IV SCH (16:48)
[2020-03-13] MEDS: HEPARIN SODIUM,PORCINE 5,000 UNIT/ML 1 ML VIAL SQ SCH ×2 (16:59→23:50)
[2020-03-13] MEDS: CLINDAMYCIN 900 MG in DEXTROSE 5% IN WATER 50 ML IVPB SCH ×6 (16:59→23:49)
[2020-03-13] MEDS: ACETAMINOPHEN IV (For NPO) 1,000 MG in EMPTY BAG 1 BAG IVPB SCH ×3 (18:19→23:48)
[2020-03-13] MEDS: KETOROLAC 15 MG/ML 1 ML VIAL IVP SCH ×2 (18:34→23:50)
[2020-03-13 20:24] LABS: Glucose,Whole Blood 118 mg/dL (75-99)
[2020-03-13] MEDS: IPRATROPIUM-ALBUTEROL 3 ML NEB INHALATION SCH (21:12)
[2020-03-13] MEDS: IPRATROPIUM-ALBUTEROL 3 ML NEB IH SCH ×2 (21:12→22:18)
[2020-03-13] MEDS: traMADol 50 MG TAB PO SCH ×2 (22:04→23:50)
[2020-03-14 04:39] LABS: Basophils # (A) 0.1 k/uL (0-0.2); Basophils % (A) 1 %; Eosinophils # (A) 0.1 k/uL (0-0.7); Eosinophils % (A) 1 %; HCT 30.7 % (34.0-46.0); HGB 9.8 gm/dL (11.4-16.0); Hypochromasia Slight; Lymphocytes # (A) 2.5 k/uL (1.0-4.8); Lymphocytes % (A) 16 %; MCH 27.8 pg (25.0-35.0); MCHC 31.8 g/dL (31.0-37.0); MCV 87.3 fL (80.0-100.0); Mean Platelet Volume 6.2; Monocytes # (A) 0.9 k/uL (0-1.0); Monocytes % (A) 6 %; Neutrophils % (A) 76 %; Platelet Count 394 k/uL (150-450); RBC 3.52 m/uL (3.80-5.40); RDW 14.8 % (11.5-15.5); WBC 15.9 k/uL (3.8-10.6)
[2020-03-14 05:03] LABS: African American GFR (CKD) >90 (>60 ml/min/1.73 sqM); Anion Gap 4 mmol/L; Blood Urea Nitrogen 7 mg/dL (7-17); Calcium 7.6 mg/dL (8.4-10.2); Carbon Dioxide 24 mmol/L (22-30); Chloride 99 mmol/L (98-107); Glucose 385 mg/dL (74-99); Non-African American GFR(CKD) >90 (>60 ml/min/1.73 sqM); Potassium 3.5 mmol/L (3.5-5.1); Sodium 127 mmol/L (137-145)
[2020-03-14] MEDS ORDERED: Potassium Replacement Protocol 1 EACH MISC MISCELLANE PRN (05:25)
[2020-03-14] MEDS: POTASSIUM CHLORIDE ER 20 MEQ TAB.ER PO SCH ×2 (06:05→11:08)
[2020-03-14] MEDS: KETOROLAC 15 MG/ML 1 ML VIAL IVP SCH ×4 (06:06→23:58)
[2020-03-14] MEDS: traMADol 50 MG TAB PO SCH ×4 (06:21→23:57)
[2020-03-14] MEDS: ACETAMINOPHEN IV (For NPO) 1,000 MG in EMPTY BAG 1 BAG IVPB SCH ×2 (06:21→11:17)
--- NOTE | 2020-03-14 06:51 | P.PN ---
Subjective Progress Note Date: 03/14/20 On today's evaluation of 03/14/2020, the patient is postop day #1. She underwent a lobectomy and lymph node dissection. The chest x-ray from this morning shows an apical pneumothorax and order of 10%. There is also obtain his emphysema. The left-sided chest tube is still having some air leak. Amount of output from the left-sided chest tube is in order of 300 since surgery. The patient has taken a combination of Ultram, and Toradol for pain control. She is on D5 half-normal saline at the rate of 50 mL an hour. Her pain scale is better for now. She is probably 5 out of 10. She is using incentive spirometer. Barely producing 500. No other issues for now. No altered mentation. She was started on heparin subcu for DVT prophylaxis. She is on DuoNeb nebulized treatments [id number]. The blood work from today shows a hemoglobin of 9.8.sugars are slightly elevated while receiving a dextrose infusion. Objective - Vital Signs Vital signs: Vital Signs Temp 97.9 F 03/14/20 04:00 Pulse 62 03/14/20 06:00 Resp 13 03/14/20 06:00 BP 95/54 03/14/20 06:00 Pulse Ox 98 03/14/20 06:00 Intake & Output 03/13/20 03/13/20 03/14/20 06:59 18:59 06:59 Intake Total 100 2812 700 Output Total 960 605 Balance 100 1852 95 Weight 62.1 kg 64.6 kg Intake: IV 100 2812 450 Dextrose 5%-0.45% NaCl 1, 450 000 ml @ 50 mls/hr IV . Q20H [facility] Rx#:[id number] Oral 250 Output: Urine 750 605 Estimated Blood Loss 210 Other: Voiding Method Indwelling Catheter - Exam Gen. appearance the patient is currently postop,day #1. The patient is on 2 L of oxygen by nasal cannula. She is awake and alert. Head exam was generally normal. There was no scleral icterus or corneal arcus. Mucous membranes were moist. Neck was supple and without jugular venous distension, thyromegaly, or carotid bruits. Carotids were easily palpable bilaterally. There was no adenopathy. The patient has obvious emphysema over the left anterior neck area which is essentially post surgical in nature.\ Lungs sounds are diminished on the left compared to the right. There is scattered WHEEZE. The patient has a left pleural chest tube. There is positive air leak. Chest tube site is dry clean and intact at this point in time. Cardiac exam revealed the PMI to be normally situated and sized. The rhythm was regular and no extrasystoles were noted during several minutes of auscultation. The first and second heart sounds were normal and physiologic splitting of the second heart sound was noted. There were no murmurs, rubs, clicks, or gallops. Abdominal exam revealed normal bowel sounds. The abdomen was soft, non-tender, and without masses, organomegaly, or appreciable enlargement of the abdominal aorta. Examination of the extremities revealed easily palpable radial, femoral and pedal pulses. There was no cyanosis, clubbing or edema. Examination of the skin revealed no evidence of significant rashes, suspicious appearing nevi or other concerning lesions. - Labs CBC & Chem 7: 03/14/20 04:09 03/14/20 04:09 Labs: Abnormal Lab Results - Last 24 Hours (Table) 03/13/20 03/14/20 03/14/20 Range/Units 20:22 04:09 04:09 WBC 15.9 H (3.8-10.6) k/uL RBC 3.52 L (3.80-5.40) m/uL Hgb 9.8 L (11.4-16.0) gm/dL Hct 30.7 L (34.0-46.0) % Neutrophils # 12.0 H (1.3-7.7) k/uL Sodium 127 L (137-145) mmol/L Glucose 385 H (74-99) mg/dL POC Glucose (mg/dL) 118 H (75-99) mg/dL Calcium 7.6 L (8.4-10.2) mg/dL Assessment and Plan Plan: 1 squamous cell carcinoma, and the patient is post robotic-assisted thoracoscopic left upper lobe resection along with mediastinal lymph node dissection. The patient is postop day #1. The preop PET scan was noted. There was a mediastinal density without significant uptake on the PET scan. The patient is currently recovering and the patient currently has a left pleural chest tube in place. There is positive air leak. Pain is under adequate control. on 03/14/2020, the patient is postop day #1. She has this tiny 10% pneumothorax on the left. There is positive air leak. She is using incentive spirometer. Pain is under adequate control for now. She is hemodynamically stable. 2 COPD, moderate in severity with an FEV1 of 72% of predicted, 1.57 L 3 subcutaneous emphysema over the neck, expected outcomes surgery 4 left sided chest tube, post lobectomy 5 remote history of breast cancer 6 history of carotid artery disease with a previous endarterectomy on the left 7 history of smoking. Plan Start the patient on DuoNeb nebulized 4 times a day and when necessary. Incentive spirometer Monitor air leak from the chest tube, keep off the suction Daily chest x-rays the patient off the [id number] saline and utilized normal saline only at the rate of 75 mL an hour. Add a sliding scale coverage. Will monitor the patient in the ICU. We'll continue to follow.
[2020-03-14] MEDS ORDERED: fentaNYL (PF) 50 MCG/ML 2 ML AMP IVP ONE (06:57)
--- NOTE | 2020-03-14 07:16 | XR ---
EXAMINATION TYPE: XR chest 1V DATE OF EXAM: 03/14/2020 COMPARISON: 03/13/2020 INDICATION: Post lobectomy TECHNIQUE: Single frontal view of the chest is obtained. FINDINGS: The heart size is borderline in size. The pulmonary vasculature is normal. There is been a left lobectomy. Left apical pneumothorax is present, larger than comparison. Subcuta neous emphysema is present. Left-sided chest tube is present. Left basilar infiltrate is developing. IMPRESSION: 1. Status post left lobectomy. Left apical pneumothorax is increasing in size appears greater than 20 %. 2. Left chest tube remains in position. 3. Developing left lower lobe infiltrate correlate for atelectasis.
[2020-03-14 08:36] LABS: Glucose,Whole Blood 108 mg/dL (75-99)
[2020-03-14] MEDS: IPRATROPIUM-ALBUTEROL 3 ML NEB INHALATION SCH (08:53)
[2020-03-14] MEDS ORDERED: MAGNESIUM HYDROXIDE 2,400 MG/10 ML CUP PO PRN (09:04)
--- NOTE | 2020-03-14 09:44 | P.PN ---
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 Previous medical history of breast cancer status post left mastectomy in 2007 with chemo, no radiation, carotid artery disease status post left carotid endarterectomy in 2019, hysterectomy for benign disease, previous tobacco dependence with recent cessation, mild to moderate COPD with FEV1 72% of predicted and hypertension. POD #1 robotic assisted thoracoscopic left upper lobectomy with mediastinal lymph node dissection and repair of left mainstem bronchus The patient is currently sitting up in the recliner in the intensive care unit in no acute distress. This morning she did complain of significant pain at her surgical site, was given pain medication and does state she feels better. Denies shortness of breath. Remains in sinus rhythm and hemodynamically stable. Left pleural chest tube present to waterseal, intermittent air leak present. Chest x-ray reviewed, patient does have 20% apical pneumothorax present. No other new concerns. Patient's daughter was updated yesterday Objective - Vital Signs Vital signs: Vital Signs Temp 96.3 F L 03/14/20 08:00 Pulse 76 03/14/20 09:06 Resp 12 03/14/20 09:00 BP 126/64 03/14/20 09:00 Pulse Ox 100 03/14/20 09:00 Intake & Output 03/13/20 03/14/20 03/14/20 18:59 06:59 18:59 Intake Total 2812 700 Output Total 960 605 60 Balance 1852 95 -60 Weight 64.6 kg Intake: IV 2812 450 Dextrose 5%-0.45% NaCl 1, 450 000 ml @ 50 mls/hr IV . Q20H [facility] Rx#:[id number] Oral 250 Output: Urine 750 605 60 Estimated Blood Loss 210 Other: Voiding Method Indwelling Catheter - Constitutional General appearance: Present: cooperative, no acute distress - Respiratory Details: Lungs sounds diminished on the left, faint expiratory wheezes present. Respirations even, nonlabored. Currently on room air with oxygen saturation 100%. Barely able to achieve 500 mL on her incentive spirometry, weak cough. Left pleural chest tube present to waterseal, 350 mL serosanguineous drainage since surgery, intermittent air leak present. - Cardiovascular Details: S1, S2 present. Regular rate and rhythm, sinus rhythm on telemetry. Palpable peripheral pulses bilaterally. No edema present. No calf pain or tenderness noted. - Gastrointestinal Gastrointestinal Comment(s): Abdomen soft, nontender, nondistended. Active bowel sounds present 4 quadrants. Tolerating diet. - Genitourinary Genitourinary Comment(s): Macdonald discontinued this morning, output overnight 60-75 mL per hour. - Integumentary Integumentary Comment(s): Skin is warm and dry with evidence of good perfusion. - Neurologic Neurologic: Present: CNII-XII intact - Musculoskeletal Musculoskeletal: Present: strength equal bilaterally - Psychiatric Psychiatric: Present: A&O x's 3, appropriate affect, intact judgment & insight - Allied health notes Allied health notes reviewed: nursing - Labs CBC & Chem 7: 03/14/20 04:09 03/14/20 04:09 Labs: Abnormal Lab Results - Last 24 Hours (Table) 03/13/20 03/14/20 03/14/20 Range/Units 20:22 04:09 04:09 WBC 15.9 H (3.8-10.6) k/uL RBC 3.52 L (3.80-5.40) m/uL Hgb 9.8 L (11.4-16.0) gm/dL Hct 30.7 L (34.0-46.0) % Neutrophils # 12.0 H (1.3-7.7) k/uL Sodium 127 L (137-145) mmol/L Glucose 385 H (74-99) mg/dL POC Glucose (mg/dL) 118 H (75-99) mg/dL Calcium 7.6 L (8.4-10.2) mg/dL 03/14/20 Range/Units 08:29 WBC (3.8-10.6) k/uL RBC (3.80-5.40) m/uL Hgb (11.4-16.0) gm/dL Hct (34.0-46.0) % Neutrophils # (1.3-7.7) k/uL Sodium (137-145) mmol/L Glucose (74-99) mg/dL POC Glucose (mg/dL) 108 H (75-99) mg/dL Calcium (8.4-10.2) mg/dL - Imaging and Cardiology Chest x-ray: report reviewed, image reviewed Assessment and Plan Assessment: 1. 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 History of breast cancer status post left mastectomy in 2007 with chemo, no radiation 3. Carotid artery disease status post left carotid endarterectomy in 2019 4. Hysterectomy for benign disease 5. Previous tobacco dependence with recent cessation 6. Mild to moderate COPD with FEV1 72% of predicted 7. Hypertension. Plan: 1. Continue left pleural chest tube to waterseal. Monitor for resolution of air leak 2. Will monitor daily x-rays 3. Encourage incentive spirometry use 10 times every hour while awake. Patient needs aggressive pulmonary toileting 4. Increase activity, ambulate as tolerated 5. Pain control with current medication regimen 6. Will follow pathology 7. Encourage continued smoking cessation 8. Transfer orders placed for 5 N. with telemetry. May transfer when bed available 9. More recommendations to follow based on patient's progress Time with Patient: Greater than 30
[2020-03-14] MEDS: PANTOPRAZOLE 40 MG TABLET PO SCH (11:08)
[2020-03-14] MEDS: HEPARIN SODIUM,PORCINE 5,000 UNIT/ML 1 ML VIAL SQ SCH ×2 (11:08→17:30)
[2020-03-14] MEDS: CALCIUM CARB-VIT D 500MG-200UN 1 EACH TAB PO SCH (11:08)
[2020-03-14] MEDS: CLINDAMYCIN 900 MG in DEXTROSE 5% IN WATER 50 ML IVPB SCH ×2 (11:08)
[2020-03-14] MEDS: MAGNESIUM OXIDE 400 MG TAB PO SCH (11:08)
[2020-03-14] MEDS: IPRATROPIUM 0.5 MG/2.5 ML NEBU INHALATION SCH ×3 (11:38→20:35)
[2020-03-14 12:01] LABS: Glucose,Whole Blood 95 mg/dL (75-99)
[2020-03-14] MEDS: LETROZOLE 2.5 MG TAB PO SCH (12:41)
[2020-03-14] MEDS: INSULIN ASPART (NovoLOG) 100 UNIT/ML VIAL SQ SCH ×3 (12:47→22:00)
[2020-03-14] MEDS ORDERED: hydrALAZINE HCL 20 MG/ML 1 ML VIAL IVP PRN (12:53)
[2020-03-14] MEDS: lisinopriL 10 MG TAB PO SCH (13:30)
[2020-03-14] MEDS ORDERED: ACETAMINOPHEN TAB 325 MG TAB PO PRN (16:00)
[2020-03-14 16:59] LABS: Appearance,Urine Clear (Clear); Bilirubin,Urine Negative (Negative); Blood,Urine Negative (Negative); Color,Urine Light Yellow; Glucose,Urine (UA) Negative (Negative); Ketones,Urine Negative (Negative); Leukocyte Esterase,Urine Negative (Negative); Nitrite,Urine Negative (Negative); PH, Urine 6.5 (5.0-8.0); Protein,Urine Negative (Negative); Specific Gravity,Urine 1.012 (1.001-1.035); Urobilinogen,Urine <2.0 mg/dL (<2.0)
[2020-03-14 16:59] LABS: Glucose,Whole Blood 120 mg/dL (75-99)
[2020-03-14 20:38] LABS: Glucose,Whole Blood 124 mg/dL (75-99)
[2020-03-14] MEDS: SENNOSIDES-DOCUSATE SODIUM 1 EACH TAB PO SCH (21:41)
[2020-03-15] MEDS: HEPARIN SODIUM,PORCINE 5,000 UNIT/ML 1 ML VIAL SQ SCH ×3 (00:20→18:04)
[2020-03-15] MEDS ORDERED: HYDROmorphone 1 MG/ML 1 ML SYRINGE IVP PRN (00:40)
[2020-03-15] MEDS ORDERED: HYDROmorphone 0.5 MG/0.5 ML SYRINGE IVP PRN (00:40)
[2020-03-15] MEDS: traMADol 50 MG TAB PO SCH ×2 (06:21→18:04)
[2020-03-15] MEDS: KETOROLAC 15 MG/ML 1 ML VIAL IVP SCH ×3 (06:27→18:07)
[2020-03-15] MEDS: IPRATROPIUM 0.5 MG/2.5 ML NEBU INHALATION SCH ×4 (07:22→19:46)
[2020-03-15] MEDS ORDERED: ACETAMINOPHEN TAB 500 MG TAB PO PRN (07:27)
[2020-03-15 07:40] LABS: Glucose,Whole Blood 115 mg/dL (75-99)
[2020-03-15] MEDS: PANTOPRAZOLE 40 MG TABLET PO SCH (07:43)
[2020-03-15 07:55] LABS: HCT 35.8 % (34.0-46.0); HGB 11.4 gm/dL (11.4-16.0); MCH 27.2 pg (25.0-35.0); MCHC 31.7 g/dL (31.0-37.0); MCV 85.7 fL (80.0-100.0); Mean Platelet Volume 6.4; Platelet Count 512 k/uL (150-450); RBC 4.18 m/uL (3.80-5.40); RDW 14.7 % (11.5-15.5); WBC 15.4 k/uL (3.8-10.6)
[2020-03-15] MEDS: MAGNESIUM OXIDE 400 MG TAB PO SCH (08:04)
[2020-03-15] MEDS: CALCIUM CARB-VIT D 500MG-200UN 1 EACH TAB PO SCH (08:04)
[2020-03-15] MEDS: LETROZOLE 2.5 MG TAB PO SCH (08:04)
[2020-03-15] MEDS: lisinopriL 10 MG TAB PO SCH (08:04)
[2020-03-15] MEDS: INSULIN ASPART (NovoLOG) 100 UNIT/ML VIAL SQ SCH (08:05)
[2020-03-15] MEDS: TAMSULOSIN 0.4 MG CAP.ER.24H PO SCH (08:05)
--- NOTE | 2020-03-15 08:58 | P.PN ---
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 Previous medical history of breast cancer status post left mastectomy in 2007 with chemo, no radiation, carotid artery disease status post left carotid endarterectomy in 2019, hysterectomy for benign disease, previous tobacco dependence with recent cessation, mild to moderate COPD with FEV1 72% of predicted and hypertension. POD #2 robotic assisted thoracoscopic left upper lobectomy with mediastinal lymph node dissection and repair of left mainstem bronchus The patient is currently sitting up in the recliner on the medical oncology unit in no acute distress. She does state she had a bad night with difficulty with pain control, appears comfortable now. Denies shortness of breath. Remains in sinus rhythm and hemodynamically stable. Left pleural chest tube present to waterseal, intermittent air leak present with coughing. Chest x-ray reviewed, pneumothorax last than yesterday but still present. Continues to have episodes of urinary retention, has required straight catheterization 2. Patient states that she has had this issue in the past. Patient's daughter was updated yesterday Objective - Vital Signs Vital signs: Vital Signs Temp 98.0 F 03/15/20 02:00 Pulse 92 03/15/20 07:22 Resp 16 03/15/20 02:00 BP 125/73 03/15/20 02:00 Pulse Ox 94 L 03/15/20 02:00 Intake & Output 03/14/20 03/15/20 03/15/20 18:59 06:59 18:59 Intake Total 900 100 Output Total 1050 1455 Balance -150 -1355 Intake: Oral 200 100 Blood Product 700 Output: Chest Tube Drainage 100 Chest Tube Left Upper 100 Anterior Chest Drainage 190 50 Left Chest 190 50 Urine 860 725 Straight 600 Post Void Residual 580 Other: Voiding Method Indwelling Catheter Bedside Commode # Bowel Movements 0 - Constitutional General appearance: Present: cooperative, no acute distress - Respiratory Details: Lungs sounds diminished bilaterally, expiratory wheezes present. Respirations even, nonlabored. Currently on room air with oxygen saturation 94%. Able to achieve 750 mL on her incentive spirometry, weak cough. Left pleural chest tube present to waterseal, 100 mL thin serous drainage overnight, 450 mL in the last 24 hours, intermittent air leak present with coughing. - Cardiovascular Details: S1, S2 present. Regular rate and rhythm, sinus rhythm on telemetry. Palpable peripheral pulses bilaterally. No edema present. No calf pain or tenderness noted. - Gastrointestinal Gastrointestinal Comment(s): Abdomen soft, nontender, nondistended. Active bowel sounds present 4 quadrants. Tolerating diet. - Genitourinary Genitourinary Comment(s): Patient able to void only small amounts, approximately 100 mL with need for straight catheterization 2. - Integumentary Integumentary Comment(s): Skin is warm and dry with evidence of good perfusion. - Neurologic Neurologic: Present: CNII-XII intact - Musculoskeletal Musculoskeletal: Present: gait normal, strength equal bilaterally - Psychiatric Psychiatric: Present: A&O x's 3, appropriate affect - Allied health notes Allied health notes reviewed: nursing - Labs CBC & Chem 7: 03/15/20 07:17 03/14/20 04:09 Labs: Abnormal Lab Results - Last 24 Hours (Table) 03/14/20 03/14/20 03/15/20 Range/Units 16:58 20:33 07:17 WBC 15.4 H (3.8-10.6) k/uL Plt Count 512 H (150-450) k/uL POC Glucose (mg/dL) 120 H 124 H (75-99) mg/dL 03/15/20 Range/Units 07:33 WBC (3.8-10.6) k/uL Plt Count (150-450) k/uL POC Glucose (mg/dL) 115 H (75-99) mg/dL - Imaging and Cardiology Chest x-ray: image reviewed Assessment and Plan Assessment: 1. 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 History of breast cancer status post left mastectomy in 2007 with chemo, no radiation 3. Carotid artery disease status post left carotid endarterectomy in 2019 4. Hysterectomy for benign disease 5. Previous tobacco dependence with recent cessation 6. Mild to moderate COPD with FEV1 72% of predicted 7. Hypertension. 8. Urinary retention Plan: 1. Continue left pleural chest tube to waterseal. Monitor for resolution of air leak 2. Will monitor daily x-rays 3. Encourage incentive spirometry use 10 times every hour while awake. Patient needs aggressive pulmonary toileting 4. Increase activity, ambulate as tolerated 5. Pain control with current medication regimen 6. Will follow pathology 7. Encourage continued smoking cessation 8. Flomax added for retention 9. More recommendations to follow based on patient's progress Time with Patient: Greater than 30
--- NOTE | 2020-03-15 10:15 | XR ---
EXAMINATION TYPE: XR chest 1V DATE OF EXAM: 03/15/2020 COMPARISON: 03/15/2020 INDICATION: Post lobectomy TECHNIQUE: Single frontal view of the chest is obtained. FINDINGS: The heart size is normal. The pulmonary vasculature is normal. Subcutaneous emphysema is on the left. Left-sided chest tube remains stable. Left apical pneumothora x is diminished over the interval postsurgical changes are at the left apex. IMPRESSION: 1. Diminishing left apical pneumothorax. 2. Left-sided chest tube remain stable in position.
[2020-03-15 11:31] LABS: Glucose,Whole Blood 119 mg/dL (75-99)
--- NOTE | 2020-03-15 12:37 | P.PN ---
Subjective Progress Note Date: 03/15/20 On today's evaluation of 03/14/2020, the patient is postop day #1. She underwent a lobectomy and lymph node dissection. The chest x-ray from this morning shows an apical pneumothorax and order of 10%. There is also obtain his emphysema. The left-sided chest tube is still having some air leak. Amount of output from the left-sided chest tube is in order of 300 since surgery. The patient has taken a combination of Ultram, and Toradol for pain control. She is on D5 half-normal saline at the rate of 50 mL an hour. Her pain scale is better for now. She is probably 5 out of 10. She is using incentive spirometer. Barely producing 500. No other issues for now. No altered mentation. She was started on heparin subcu for DVT prophylaxis. She is on DuoNeb nebulized treatments [id number]. The blood work from today shows a hemoglobin of 9.8.sugars are slightly elevated while receiving a dextrose infusion. On 03/15/2020, the patient is being seen for a follow-up. The patient's follow- up chest x-ray shows no major pneumothorax. This probably a less than 5% apical pneumothorax on the left. Chest tube is in a good location. There is some subcutaneous emphysema along the left neck area which is improving. Clinically the patient is doing well. Pain is under adequate control for now. She is hemodynamically stable. She was transferred out of the intensive care unit yesterday. She is postop day #2 following her left upper lobe resection and mediastinal lymph node dissection.The patient is sitting up on a chair. The patient did have some pain issues overnight which has improved on today's evaluation. Denies having any shortness of breath. The right-sided chest tube is still showing some intermittent air leak. She also had issues with urinary retention she required catheterization 2. Objective - Vital Signs Vital signs: Vital Signs Temp 97.5 F L 03/15/20 08:00 Pulse 100 03/15/20 11:33 Resp 16 03/15/20 08:00 BP 123/80 03/15/20 08:00 Pulse Ox 96 03/15/20 08:00 Intake & Output 03/14/20 03/15/20 03/15/20 18:59 06:59 18:59 Intake Total 900 100 Output Total 1050 1455 Balance -150 -1355 Intake: Oral 200 100 Blood Product 700 Output: Chest Tube Drainage 100 Chest Tube Left Upper 100 Anterior Chest Drainage 190 50 Left Chest 190 50 Urine 860 725 Straight 600 Post Void Residual 580 Other: Voiding Method Indwelling Catheter Bedside Commode # Bowel Movements 0 - Exam Gen. appearance the patient is currently postop,day #2. The patient is on 2 L of oxygen by nasal cannula. She is awake and alert. Head exam was generally normal. There was no scleral icterus or corneal arcus. Mucous membranes were moist. Neck was supple and without jugular venous distension, thyromegaly, or carotid bruits. Carotids were easily palpable bilaterally. There was no adenopathy. The patient has obvious emphysema over the left anterior neck area which is essentially post surgical in nature.\ Lungs sounds are diminished on the left compared to the right. There is scattered WHEEZE. The patient has a left pleural chest tube. There is positive air leak. Chest tube site is dry clean and intact at this point in time. Cardiac exam revealed the PMI to be normally situated and sized. The rhythm was regular and no extrasystoles were noted during several minutes of auscultation. The first and second heart sounds were normal and physiologic splitting of the second heart sound was noted. There were no murmurs, rubs, clicks, or gallops. Abdominal exam revealed normal bowel sounds. The abdomen was soft, non-tender, and without masses, organomegaly, or appreciable enlargement of the abdominal aorta. Examination of the extremities revealed easily palpable radial, femoral and pedal pulses. There was no cyanosis, clubbing or edema. Examination of the skin revealed no evidence of significant rashes, suspicious appearing nevi or other concerning lesions. - Labs CBC & Chem 7: 03/15/20 07:17 03/14/20 04:09 Labs: Abnormal Lab Results - Last 24 Hours (Table) 03/14/20 03/14/20 03/15/20 Range/Units 16:58 20:33 07:17 WBC 15.4 H (3.8-10.6) k/uL Plt Count 512 H (150-450) k/uL POC Glucose (mg/dL) 120 H 124 H (75-99) mg/dL 03/15/20 03/15/20 Range/Units 07:33 11:15 WBC (3.8-10.6) k/uL Plt Count (150-450) k/uL POC Glucose (mg/dL) 115 H 119 H (75-99) mg/dL Assessment and Plan Plan: 1 squamous cell carcinoma, and the patient is post robotic-assisted thoracoscopic left upper lobe resection along with mediastinal lymph node dissection. The patient is postop day #2. The preop PET scan was noted. There was a mediastinal density without significant uptake on the PET scan. The patient is currently recovering and the patient currently has a left pleural chest tube in place. There is positive air leak. Pain is under adequate control. Rest x-ray shows a left sided apical pneumothorax which is small. Subcutaneous emphysema is improving. Patient's pain control is more adequate for now. on 03/14/2020, the patient is postop day #2. She has this tiny 10% pneumothorax on the left. There is positive air leak. She is using incentive spirometer. Pain is under adequate control for now. She is hemodynamically stable. 2 COPD, moderate in severity with an FEV1 of 72% of predicted, 1.57 L 3 subcutaneous emphysema over the neck, expected outcomes surgery 4 left sided chest tube, post lobectomy 5 remote history of breast cancer 6 history of carotid artery disease with a previous endarterectomy on the left 7 history of smoking. Plan Start the patient on DuoNeb nebulized 4 times a day and when necessary. Incentive spirometer Monitor air leak from the chest tube, keep off the suction, Monitor for any air leaks and keep the left-sided chest tube to waterseal for now. Daily chest x-rays the patient off the [id number] saline and utilized normal saline only at the rate of 75 mL an hour. Add a sliding scale coverage. Will monitor the patient in the ICU. We'll continue to follow.
[2020-03-15 12:53] LABS: African American GFR (CKD) 113.7 (60.0-200.0); Anion Gap 6.3 mmol/L (4.00-12.00); Calcium 8.9 mg/dL (8.7-10.3); Carbon Dioxide 26.7 mmol/L (21.6-31.8); Non-African American GFR(CKD) 98.1 (60.0-200.0); Potassium 4.3 mmol/L (3.5-5.5)
[2020-03-15] MEDS ORDERED: traMADol 50 MG TAB PO SCH (15:00)
[2020-03-15 17:22] LABS: Glucose,Whole Blood 117 mg/dL (75-99)
[2020-03-15 19:43] LABS: Glucose,Whole Blood 137 mg/dL (75-99)
[2020-03-16] MEDS: traMADol 50 MG TAB PO SCH ×3 (00:06→13:17)
[2020-03-16] MEDS: SENNOSIDES-DOCUSATE SODIUM 1 EACH TAB PO SCH ×2 (00:07→20:43)
[2020-03-16] MEDS: KETOROLAC 15 MG/ML 1 ML VIAL IVP SCH ×4 (00:09→20:43)
[2020-03-16] MEDS: HEPARIN SODIUM,PORCINE 5,000 UNIT/ML 1 ML VIAL SQ SCH ×3 (00:10→16:43)
[2020-03-16 06:04] LABS: HCT 36.3 % (34.0-46.0); HGB 11.9 gm/dL (11.4-16.0); MCH 27.3 pg (25.0-35.0); MCHC 32.8 g/dL (31.0-37.0); MCV 83.3 fL (80.0-100.0); Mean Platelet Volume 6.1; Platelet Count 521 k/uL (150-450); RBC 4.36 m/uL (3.80-5.40); RDW 14.5 % (11.5-15.5); WBC 17.4 k/uL (3.8-10.6)
--- NOTE | 2020-03-16 08:05 | XR ---
EXAMINATION TYPE: XR chest 1V portable DATE OF EXAM: 03/16/2020 COMPARISON: 03/15/2020 INDICATION: Post lobectomy TECHNIQUE: Single frontal view of the chest is obtained. FINDINGS: The heart size is normal. There is some shift the mediastinum towards the left. The pulmonary vasculature is normal. Postsurgical changes are in the left apex. Minimal right apical pneumothorax is stable left-sided elyse st tube remains in position. Subcutaneous emphysema is present. IMPRESSION: 1. Mild stable left apical pneumothorax. 2. Postsurgical lobectomy changes left lung
[2020-03-16] MEDS: TAMSULOSIN 0.4 MG CAP.ER.24H PO SCH (08:23)
[2020-03-16] MEDS: carvediloL 6.25 MG TAB PO SCH ×2 (08:23→16:43)
[2020-03-16] MEDS: PANTOPRAZOLE 40 MG TABLET PO SCH (08:23)
[2020-03-16] MEDS: MAGNESIUM OXIDE 400 MG TAB PO SCH (08:24)
[2020-03-16] MEDS: LETROZOLE 2.5 MG TAB PO SCH (08:24)
[2020-03-16] MEDS: CALCIUM CARB-VIT D 500MG-200UN 1 EACH TAB PO SCH (08:24)
[2020-03-16] MEDS ORDERED: polyethylene glycoL 3350 17 GM POWD.PACK PO SCH (09:00)
[2020-03-16] MEDS: IPRATROPIUM 0.5 MG/2.5 ML NEBU INHALATION SCH ×4 (10:12→21:11)
[2020-03-16 10:18] LABS: African American GFR (CKD) 113.7 (60.0-200.0); Anion Gap 11.1 mmol/L (4.00-12.00); Carbon Dioxide 25.9 mmol/L (21.6-31.8); Non-African American GFR(CKD) 98.1 (60.0-200.0); Potassium 4.2 mmol/L (3.5-5.5)
[2020-03-16] MEDS ORDERED: traMADol 50 MG TAB PO PRN (10:44)
[2020-03-16] MEDS: IPRATROPIUM-ALBUTEROL 3 ML NEB IH PRN ×2 (11:14→16:46)
--- NOTE | 2020-03-16 11:41 | P.PN ---
Subjective Progress Note Date: 03/16/20 Principal diagnosis: Squamous cell carcinoma left upper lobe lung. Previous medical history of breast cancer status post left mastectomy in 2007 with chemo, no radiation, carotid artery disease status post left carotid endarterectomy in 2019, hysterectomy for benign disease, previous tobacco dependence with recent cessation, mild to moderate COPD with FEV1 72% of predicted and hypertension. POD #3 robotic assisted thoracoscopic left upper lobectomy with mediastinal lymph node dissection and repair of left mainstem bronchus The patient is currently sitting up in the recliner on the medical oncology unit in no acute distress. She appears happy this morning, states her evening went better, she has voided on her own and had a bowel movement. States pain is controlled with current medication regimen, denies shortness of breath. Remains in sinus rhythm and hemodynamically stable. Left pleural chest tube present to [facility], no air leak this morning. Chest x-ray reviewed, pneumothorax last than yesterday but minimal. Objective - Vital Signs Vital signs: Vital Signs Temp 97.4 F L 03/16/20 08:00 Pulse 92 03/16/20 11:30 Resp 20 03/16/20 08:00 BP 160/90 03/16/20 08:00 Pulse Ox 97 03/16/20 01:25 Intake & Output 03/15/20 03/16/20 03/16/20 18:59 06:59 18:59 Intake Total 200 Output Total 70 220 Balance -70 -20 Intake: Oral 200 Output: Chest Tube Drainage 20 Chest Tube Left Upper 20 Anterior Chest Drainage 70 Left Chest 70 Urine 200 Other: Voiding Method Toilet # Voids 5 # Bowel Movements 1 - Constitutional General appearance: Present: cooperative, no acute distress - Respiratory Details: Lungs sounds diminished bilaterally, expiratory wheezes present. Respirations even, nonlabored. Currently on room air with oxygen saturation 97%. Able to achieve 750 mL on her incentive spirometry, weak cough. Left pleural chest tube present to waterseal, 20 mL thin serous drainage overnight, 140 mL in the last 24 hours, no air leak present - Cardiovascular Details: S1, S2 present. Regular rate and rhythm, sinus rhythm on telemetry. Palpable peripheral pulses bilaterally. No edema present. No calf pain or tenderness noted. - Gastrointestinal Gastrointestinal Comment(s): Abdomen soft, nontender, nondistended. Active bowel sounds present 4 quadrants. Tolerating diet. Positive bowel movement. - Genitourinary Genitourinary Comment(s): Able to void multiple times without requiring straight catheterization - Integumentary Integumentary Comment(s): Abdomen soft, nontender, nondistended. Active bowel sounds present 4 quadrants. Tolerating diet. - Neurologic Neurologic: Present: CNII-XII intact - Musculoskeletal Musculoskeletal: Present: gait normal, strength equal bilaterally - Psychiatric Psychiatric: Present: A&O x's 3, appropriate affect, intact judgment & insight - Allied health notes Allied health notes reviewed: nursing - Labs CBC & Chem 7: 03/16/20 05:49 03/16/20 05:49 Labs: Abnormal Lab Results - Last 24 Hours (Table) 03/15/20 03/15/20 03/15/20 Range/Units 07:17 17:06 19:41 WBC (3.8-10.6) k/uL Plt Count (150-450) k/uL Sodium 126 L (135-145) mmol/L Chloride 93 L (96-109) mmol/L BUN (9.0-27.0) mg/dL Creatinine 0.5 L (0.6-1.5) mg/dL Glucose (70-110) mg/dL POC Glucose (mg/dL) 117 H 137 H (75-99) mg/dL 03/16/20 03/16/20 Range/Units 05:49 05:49 WBC 17.4 H (3.8-10.6) k/uL Plt Count 521 H (150-450) k/uL Sodium 125 L (135-145) mmol/L Chloride 88 L (96-109) mmol/L BUN 8.0 L (9.0-27.0) mg/dL Creatinine 0.5 L (0.6-1.5) mg/dL Glucose 125 H (70-110) mg/dL POC Glucose (mg/dL) (75-99) mg/dL - Imaging and Cardiology Chest x-ray: report reviewed, image reviewed Assessment and Plan Assessment: 1. 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 History of breast cancer status post left mastectomy in 2007 with chemo, no radiation 3. Carotid artery disease status post left carotid endarterectomy in 2019 4. Hysterectomy for benign disease 5. Previous tobacco dependence with recent cessation 6. Mild to moderate COPD with FEV1 72% of predicted 7. Hypertension. 8. Urinary retention, resolved Plan: 1. Left pleural chest tube discontinued today without incident. Leave the current dressing in place for 48 hours 2. Recheck 2 view chest x-ray in the morning 3. Encourage incentive spirometry use 10 times every hour while awake. Patient needs aggressive pulmonary toileting 4. Increase activity, ambulate as tolerated 5. Pain control with current medication regimen 6. Will follow pathology, still pending 7. Encourage continued smoking cessation 8. Discontinue Flomax 9. If chest x-ray stable in the morning will discharge to home tomorrow 10. More recommendations to follow based on patient's progress Time with Patient: Greater than 30
--- NOTE | 2020-03-16 12:24 | P.PN ---
Subjective Progress Note Date: 03/16/20 On today's evaluation of 03/14/2020, the patient is postop day #1. She underwent a lobectomy and lymph node dissection. The chest x-ray from this morning shows an apical pneumothorax and order of 10%. There is also obtain his emphysema. The left-sided chest tube is still having some air leak. Amount of output from the left-sided chest tube is in order of 300 since surgery. The patient has taken a combination of Ultram, and Toradol for pain control. She is on D5 half-normal saline at the rate of 50 mL an hour. Her pain scale is better for now. She is probably 5 out of 10. She is using incentive spirometer. Barely producing 500. No other issues for now. No altered mentation. She was started on heparin subcu for DVT prophylaxis. She is on DuoNeb nebulized treatments [id number]. The blood work from today shows a hemoglobin of 9.8.sugars are slightly elevated while receiving a dextrose infusion. On 03/15/2020, the patient is being seen for a follow-up. The patient's follow- up chest x-ray shows no major pneumothorax. This probably a less than 5% apical pneumothorax on the left. Chest tube is in a good location. There is some subcutaneous emphysema along the left neck area which is improving. Clinically the patient is doing well. Pain is under adequate control for now. She is hemodynamically stable. She was transferred out of the intensive care unit yesterday. She is postop day #2 following her left upper lobe resection and mediastinal lymph node dissection.The patient is sitting up on a chair. The patient did have some pain issues overnight which has improved on today's evaluation. Denies having any shortness of breath. The right-sided chest tube is still showing some intermittent air leak. She also had issues with urinary retention she required catheterization 2. On 03/16/2020, the patient is postop day #3 following a robotic-assisted left u pper lobe resection. The patient is doing well. The patient is able to sit up on a chair. No significant complaints. Chest x-ray was reviewed and there is minimal pneumothorax on the left. The chest tube is still placed on waterseal and there is no evidence of any air leak at this point in time. Pain is under good control. No nausea. No vomiting. No abdominal pain. No fever. No chills. No other complaints otherwise for now. Based on all this, the left- sided chest tube will be removed today. The patient is still using incentive spirometer. Objective - Vital Signs Vital signs: Vital Signs Temp 97.4 F L 03/16/20 08:00 Pulse 92 03/16/20 11:30 Resp 20 03/16/20 08:00 BP 160/90 03/16/20 08:00 Pulse Ox 97 03/16/20 01:25 Intake & Output 03/15/20 03/16/20 03/16/20 18:59 06:59 18:59 Intake Total 200 Output Total 70 220 Balance -70 -20 Intake: Oral 200 Output: Chest Tube Drainage 20 Chest Tube Left Upper 20 Anterior Chest Drainage 70 Left Chest 70 Urine 200 Other: Voiding Method Toilet # Voids 5 # Bowel Movements 1 - Exam Gen. appearance the patient is currently postop,day #2. The patient is on 2 L of oxygen by nasal cannula. She is awake and alert. Head exam was generally normal. There was no scleral icterus or corneal arcus. Mucous membranes were moist. Neck was supple and without jugular venous distension, thyromegaly, or carotid bruits. Carotids were easily palpable bilaterally. There was no adenopathy. The patient has obvious emphysema over the left anterior neck area which is essentially post surgical in nature.\ Lungs sounds are diminished on the left compared to the right. There is scattered WHEEZE. The patient has a left pleural chest tube. There is positive air leak. Chest tube site is dry clean and intact at this point in time. Cardiac exam revealed the PMI to be normally situated and sized. The rhythm was regular and no extrasystoles were noted during several minutes of auscultation. The first and second heart sounds were normal and physiologic splitting of the second heart sound was noted. There were no murmurs, rubs, clicks, or gallops. Abdominal exam revealed normal bowel sounds. The abdomen was soft, non-tender, a nd without masses, organomegaly, or appreciable enlargement of the abdominal aorta. Examination of the extremities revealed easily palpable radial, femoral and pedal pulses. There was no cyanosis, clubbing or edema. Examination of the skin revealed no evidence of significant rashes, suspicious appearing nevi or other concerning lesions. - Labs CBC & Chem 7: 03/16/20 05:49 03/16/20 05:49 Labs: Abnormal Lab Results - Last 24 Hours (Table) 03/15/20 03/15/20 03/15/20 Range/Units 07:17 17:06 19:41 WBC (3.8-10.6) k/uL Plt Count (150-450) k/uL Sodium 126 L (135-145) mmol/L Chloride 93 L (96-109) mmol/L BUN (9.0-27.0) mg/dL Creatinine 0.5 L (0.6-1.5) mg/dL Glucose (70-110) mg/dL POC Glucose (mg/dL) 117 H 137 H (75-99) mg/dL 03/16/20 03/16/20 Range/Units 05:49 05:49 WBC 17.4 H (3.8-10.6) k/uL Plt Count 521 H (150-450) k/uL Sodium 125 L (135-145) mmol/L Chloride 88 L (96-109) mmol/L BUN 8.0 L (9.0-27.0) mg/dL Creatinine 0.5 L (0.6-1.5) mg/dL Glucose 125 H (70-110) mg/dL POC Glucose (mg/dL) (75-99) mg/dL Assessment and Plan Plan: 1 squamous cell carcinoma, and the patient is post robotic-assisted thoracoscopic left upper lobe resection along with mediastinal lymph node dissection. The patient is postop day #3. The preop PET scan was noted. There was a mediastinal density without significant uptake on the PET scan. The patient is currently recovering and the patient currently has a left pleural chest tube in place. There is positive air leak. Pain is under adequate control. x-ray shows a left sided apical pneumothorax which is small. Sub cutaneous emphysema is improving. Patient's pain control is more adequate for now. On today's evaluation, the patient has no evidence of any air leak. Questionable tiny left apical pneumothorax on today's chest x-ray. The left lung or the left lower lobe and the left chest is well expanded. The patient is postop day #3. She is using incentive spirometer. Pain is under good control. 2 COPD, moderate in severity with an FEV1 of 72% of predicted, 1.57 L 3 subcutaneous emphysema over the neck, expected outcomes surgery 4 left sided chest tube, post lobectomy 5 remote history of breast cancer 6 history of carotid artery disease with a previous endarterectomy on the left 7 history of smoking. Plan Remove the left-sided chest tube Incentive spirometer Daily chest x-rays ambulating in the hallway. Patient is doing well. Continue to follow. Ambulating in the hallway. The patient is improving. She feels good today. We'll continue to follow. Possible discharge home tomorrow.
[2020-03-17] MEDS: HEPARIN SODIUM,PORCINE 5,000 UNIT/ML 1 ML VIAL SQ SCH ×2 (00:34→09:17)
[2020-03-17] MEDS: KETOROLAC 15 MG/ML 1 ML VIAL IVP SCH ×2 (00:34→05:11)
--- NOTE | 2020-03-17 07:20 | XR ---
EXAMINATION TYPE: XR chest 2V DATE OF EXAM: 03/17/2020 COMPARISON: 03/16/2020 HISTORY: Shortness of breath TECHNIQUE: Frontal and lateral views of the chest are obtained. FINDINGS: Left-sided chest tube has been. Tiny residual left apical pneumothorax suspected. Small amount of sub cutaneous air identified within the left neck. Chronic elevation left hemidiaphragm. Strandy density left medial lung base. Heart size is stable. Mediastinal structures are stable and grossly unremarkable. No evidence for hilar prominence. Degenerative changes dorsal spine. IMPRESSION: 1. Left-sided chest tube has been. Tiny residual left apical pneumothorax suspected.
[2020-03-17 08:28] VITALS: BP 129/83; TEMP 97.6
[2020-03-17] MEDS: IPRATROPIUM 0.5 MG/2.5 ML NEBU INHALATION SCH (09:02)
[2020-03-17 09:05] VITALS: PULSE 78
[2020-03-17] MEDS: PANTOPRAZOLE 40 MG TABLET PO SCH (09:17)
[2020-03-17] MEDS: CALCIUM CARB-VIT D 500MG-200UN 1 EACH TAB PO SCH (09:17)
[2020-03-17] MEDS: LETROZOLE 2.5 MG TAB PO SCH (09:17)
[2020-03-17] MEDS: MAGNESIUM OXIDE 400 MG TAB PO SCH (09:17)
[2020-03-17 10:32] VITALS: RESP 18
--- NOTE | 2020-03-17 15:31 | P.DS ---
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 History of breast cancer status post left mastectomy in 2006 with chemo, no radiation 3. Carotid artery disease status post left carotid endarterectomy in 2019 4. Hysterectomy for benign disease 5. Previous tobacco dependence with recent cessation 6. Mild to moderate COPD with FEV1 72% of predicted 7. Hypertension PRINCIPAL PROCEDURE: 1. Robotic-assisted thoracoscopic left upper lobectomy with mediastinal lymph node dissection and repair of left mainstem bronchus HISTORY OF PRESENT ILLNESS: This is a 69-year-old female patient who follows on an outpatient basis with Dr. Elvin Mcclain for primary care and Dr. Dino Shipman for pulmonology. This patient had an abnormal chest x-ray which was followed by CT scan confirming presence of a 4 cm mass in the left upper lobe. The mass was fairly peripheral but did extend toward the hilum. CT scan also showed prominent but small lymph nodes in the mediastinum and hilum, 1-1.5 cm diameter. She was also experiencing hemoptysis. 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 PET scan was completed demonstrating uptake in the tumor without uptake in the mediastinum or elsewhere. The patient was referred to Dr. Robles from cardiothoracic surgery. She was recommended to undergo robotic-assisted thoracoscopic left upper lobectomy with mediastinal lymph node resection. The usual perioperative course was discussed in detail with the patient and her daughter, all risks and benefits were explained, all questions were answered, and consent was obtained to proceed with surgery. The patient was scheduled for surgery at the earliest possible date. HOSPITAL COURSE: The patient was brought to the hospital on 03/13/2020, taken to the preoperative area, prepared in the usual fashion, and subsequently taken to the operating room where Dr. Robles performed a robotic-assisted thoracoscopic left upper lobectomy with mediastinal lymph node dissection and repair of left mainstem bronchus. Upon completion of surgery the patient was extubated and taken to the recovery room for further monitoring. She was eventually admitted to the intensive care unit for close monitoring. Her chest tube was placed to waterseal the night of surgery and daily chest x-rays continued to be monitored for complete lung reexpansion, her chest tube continued to be monitored for cessation of air leak. She remained stable and was transferred out of the intensive care unit on postoperative day #1. Her oxygen was titrated down, she was tolerating oral diet, her pain was controlled. She did have some urinary retention which resolved. She had no air leak on postoperative day #3 and her chest tube was discontinued without incident. A repeat chest x-ray the next morning was stable and she was ready to be discharged to home on postoperative day #4. She received written and verbal instruction regarding her medications, activity restrictions, signs and symptoms requiring physician notification, and follow-up appointments. COMPLICATIONS: The patient experienced no postoperative complications. Patient Condition at Discharge: Stable Plan - Discharge Summary Discharge Rx Participant: No New Discharge Prescriptions: New Acetaminophen Tab [Tylenol] 1,000 mg PO Q6HR PRN tab PRN Reason: Fever And/ Or Pain Continue Letrozole [Femara] 2.5 mg PO DAILY Clopidogrel [Plavix] 75 mg PO DAILY Naproxen Sodium [Aleve] 220 mg PO DAILY PRN PRN Reason: Pain Magnesium 250 mg PO DAILY Calcium Carbonate/Vitamin D3 [Calcium 600 mg-Vit D3 10Mcg (400 Unit)] 1 each PO DAILY Zinc 50 mg PO DAILY [place]-3 Fatty Acids/Fish Oil [Fish Oil 1,000 mg Softgel] 1 each PO DAILY Discharge Medication List Letrozole [Femara] 2.5 mg PO DAILY 07/30/17 [History] Clopidogrel [Plavix] 75 mg PO DAILY 01/30/19 [History] Calcium Carbonate/Vitamin D3 [Calcium 600 mg-Vit D3 10Mcg (400 Unit)] 1 each PO DAILY 03/12/20 [History] Magnesium 250 mg PO DAILY 03/12/20 [History] Naproxen Sodium [Aleve] 220 mg PO DAILY PRN 03/12/20 [History] [place]-3 Fatty Acids/Fish Oil [Fish Oil 1,000 mg Softgel] 1 each PO DAILY 03/12/20 [History] Zinc 50 mg PO DAILY 03/12/20 [History] Acetaminophen Tab [Tylenol] 1,000 mg PO Q6HR PRN tab 03/17/20 [Rx] Follow up Appointment(s)/Referral(s): Dino Shipman MD [STAFF PHYSICIAN] - 04/02/20 10:15 am Abdi Robles MD [STAFF PHYSICIAN] - 03/20/20 12:00 pm Elvin Mcclain DO [Primary Care Provider] - As Needed Patient Instructions/Handouts: How to Stop Smoking (DC) Activity/Diet/Wound Care/Special Instructions: DISCHARGE INSTRUCTIONS: 1. No driving for 2 weeks, or until physician gives their ok. 2. No lifting, pushing, or pulling more than 10 pounds for 2 weeks. The physician will advise of any restriction changes. 3. Continue pain control per as needed orders. Alternate acetaminophen (Tylenol) and ibuprofen (Motrin/Advil) or Aleve (don't take ibuprofen and Aleve, take one or the other) for pain. 4. Continue with incentive spirometry and splinting until otherwise directed by the physician. 5. Leave chest tube dressing for 48 hours. After that, remove all dressings and shower daily. 6. Routine incision care. No powders, lotions, ointments on incisions. 7. Please call surgeon/[facility] for temp greater than 101 F or purulent drainage from incisions. 8. Smoking cessation counseling and program information provided. For any questions or concerns regarding surgical incisions please call [facility]'s Aletha at [phone] or Dagoberto at [phone] Discharge Disposition: HOME SELF-CARE
== END 2020-03-17 10:15 | disposition home or self-care (01) | DRG 164 ==
LOC: 2ORMAIN 05:52 → 2SICU 19:43 → 5NMEDONC 03-14 14:16
PROVIDERS: ADMIT Thoracic Surgery (Cardiothoracic Vascular Surgery); ATTEND Thoracic Surgery (Cardiothoracic Vascular Surgery)
PROC: 0BTG4ZZ Resection of Left Upper Lung Lobe, Percutaneous Endoscopic Approach (ICD-10-PCS; principal; 2020-03-17)
PROC: 07B74ZX Excision of Thorax Lymphatic, Percutaneous Endoscopic Approach, Diagnostic (ICD-10-PCS; principal; 2020-03-17)
PROC: 8E0W4CZ Robotic Assisted Procedure of Trunk Region, Percutaneous Endoscopic Approach (ICD-10-PCS; principal; 2020-03-17)
DX: C34.12 Malignant neoplasm of upper lobe, left bronchus or lung (principal); J93.82 Other air leak; J93.9 Pneumothorax, unspecified; J98.2 Interstitial emphysema; J44.9 Chronic obstructive pulmonary disease, unspecified; I10 Essential (primary) hypertension; R33.9 Retention of urine, unspecified; R59.9 Enlarged lymph nodes, unspecified; M16.11 Unilateral primary osteoarthritis, right hip; M62.81 Muscle weakness (generalized); I83.90 Asymptomatic varicose veins of unspecified lower extremity; F41.9 Anxiety disorder, unspecified; Z79.02 Long term (current) use of antithrombotics/antiplatelets; Z79.811 Long term (current) use of aromatase inhibitors; Z79.899 Other long term (current) drug therapy; Z85.3 Personal history of malignant neoplasm of breast; Z87.891 Personal history of nicotine dependence; Z90.12 Acquired absence of left breast and nipple; Z90.710 Acquired absence of both cervix and uterus; Z98.42 Cataract extraction status, left eye; Z98.41 Cataract extraction status, right eye; Z90.49 Acquired absence of other specified parts of digestive tract; Z88.6 Allergy status to analgesic agent; Z88.0 Allergy status to penicillin; Z88.7 Allergy status to serum and vaccine; Z88.8 Allergy status to other drugs, medicaments and biological substances; Z86.79 Personal history of other diseases of the circulatory system; Z92.21 Personal history of antineoplastic chemotherapy; Z98.890 Other specified postprocedural states; Z80.1 Family history of malignant neoplasm of trachea, bronchus and lung; Z80.3 Family history of malignant neoplasm of breast; Z80.8 Family history of malignant neoplasm of other organs or systems; Z82.49 Family history of ischemic heart disease and other diseases of the circulatory system
CPT/HCPCS: 71045; 71046; 80048; 80051; 81003; 82565; 82947; 84520; 85025; 85027; 85610; 85730; 86850; 86900; 86901; 88305; 88309; 88341; 88342; 93005; 94640

== ENCOUNTER 2020-03-28 23:14 | Inpatient (IN) | payer MEDICARE ==
[2020-03-28] MEDS ORDERED: DILTIAZEM DRIP BOLUS FROM BAG 1 MG SOLN IV ONE (23:48)
--- NOTE | 2020-03-28 23:52 | ED ---
Arrhythmia/Palpitations HPI - General Source: patient Mode of arrival: wheelchair Limitations: no limitations <Gemma Huizar - Last Filed: 03/29/20 01:10> <Jeffry Villasenor - Last Filed: 03/31/20 07:21> - General Chief Complaint: Arrhythmia/Palpitations Stated Complaint: A-fib Time Seen by Provider: 03/28/20 23:29 - History of Present Illness Initial Comments: Patient is a 69-year-old female with history of breast and lung cancer, hypertension, presenting to the emergency Department with complaints of shortn ess of breath and a fluttering heartbeat since yesterday. Patient is status post left upper lobectomy done 2 weeks ago, she was discharged 10 days ago, with Dr. Robles. Patient has been recovering well until yesterday when she started having irregular heartbeat. She describes it as "fluttering." She denies history of A. fib. She does take Plavix for left carotid stenosis. She does admit to some left sided soreness from her surgery but no anterior chest pains, no nausea or vomiting, or abdominal pain. Patient denies any fever or chills. She has no further complaints at this time. Upon arrival to the ER, patient's pulse is 150, blood pressure is 129/100, 95% on room air, afebrile. (Gemma Huizar) - Related Data Home Medications Medication Instructions Recorded Confirmed Letrozole [Femara] 2.5 mg PO DAILY 07/30/17 03/29/20 Clopidogrel [Plavix] 75 mg PO DAILY 01/30/19 03/29/20 Albuterol Nebulized [Ventolin 2.5 mg INHALATION RT-QID PRN 03/29/20 03/29/20 Nebulized] HYDROcodone/APAP 5-325MG [[place] 1 tab PO Q6H PRN 03/29/20 03/29/20 5-325] LORazepam [Ativan] 0.5 mg PO HS PRN 03/29/20 03/29/20 carvediloL [Coreg] 6.25 mg PO BID 03/29/20 03/29/20 traMADol HCL 50 mg PO Q6H PRN 03/29/20 03/29/20 Allergies Allergy/AdvReac Type Severity Reaction Status Date / Time aspirin Allergy rectal Verified 03/29/20 09:06 bleeding Penicillins Allergy Anaphylaxis Verified 03/29/20 09:06 tetanus and diphtheria Allergy severe Verified 03/29/20 09:06 toxoids swelling steroids AdvReac severe Uncoded 03/28/20 23:27 muscle pain Review of Systems ROS Other: All systems not noted in ROS Statement are negative. <Gemma Huizar - Last Filed: 03/29/20 01:10> ROS Other: All systems not noted in ROS Statement are negative. <Jeffry Villasenor - Last Filed: 03/31/20 07:21> ROS Statement: Those systems with pertinent positive or pertinent negative responses have been documented in the HPI. Past Medical History Past Medical History: Cancer, COPD, Hypertension, Osteoarthritis (OA) Additional Past Medical History / Comment(s): COPD, squamous cell carcinoma of the lung, per his history of breast cancer 2007 post mastectomy. The patient did not require any chemotherapy following that. She also has carotid artery disease and she has undergone previous endarterectomy. History of Any Multi-Drug Resistant Organisms: None Reported Past Surgical History: Breast Surgery, Cholecystectomy, Hysterectomy Additional Past Surgical History / Comment(s): lung bx, cataract surgery,left mastectomy with lymph node dissection,lt carotid endartarectomy, left upper lobectomy 03/23 Past Anesthesia/Blood Transfusion Reactions: No Reported Reaction Additional Past Anesthesia/Blood Transfusion Reaction / Comment(s): states doesn't need much anesthesia to be put under Past Psychological History: Anxiety Smoking Status: Former smoker Past Alcohol Use History: None Reported Past Drug Use History: None Reported - Past Family History Mother Family Medical History: Cancer Additional Family Medical History / Comment(s): Mother at age 76 from breast cancer with metastatic disease to bone and brain. Father Family Medical History: Myocardial Infarction (MD) Additional Family Medical History / Comment(s): Father at age 73 from myocardial infarction. Brother(s) Family Medical History: Myocardial Infarction (MD) Additional Family Medical History / Comment(s): She had 3 brothers and one of them with MD still alive other one is healthy and third one committed suicide. Sister(s) Family Medical History: Cancer, Hypertension Additional Family Medical History / Comment(s): Patient has 3 sisters with hypertension. lung cancer Daughter(s) Family Medical History: No Reported History Additional Family Medical History / Comment(s): Patient has one daughter with no major medical problems. <Gemma Huizar Dianna - Last Filed: 03/29/20 01:10> General Exam Limitations: no limitations <Gemma Huizar Dianna - Last Filed: 03/29/20 01:10> - General Exam Comments Initial Comments: GENERAL: Patient is well-developed and well-nourished. Patient is nontoxic and in mild distress. HEAD: Atraumatic, normocephalic. EYES: Pupils equal round and reactive to light, extraocular movements intact, sclera anicteric, conjunctiva are normal. Eyelids were unremarkable. ENT: TMs normal, nares patent, oropharynx clear without exudates. Moist mucous membranes. NECK: Normal range of motion, supple without lymphadenopathy or JVD. LUNGS: Unlabored respirations. Breath sounds clear to auscultation bilaterally and equal. No wheezes rales or rhonchi. HEART: Tachycardia, irregular rate and rhythm without murmurs, rubs or gallops. ABDOMEN: Soft, nontender, normoactive bowel sounds. No guarding, no rebound. No masses appreciated. : Deferred MUSCULOSKELETAL: Normal extremities with adequate strength and normal range of motion, no pitting or edema. No clubbing or cyanosis. NEUROLOGICAL: Patient is alert and oriented x 3. Motor and sensory are also intact. Cranial nerves II through XII grossly intact. Symmetrical smile. Normal speech, normal gait. PSYCH: Normal mood, normal affect. SKIN: Warm, Dry, normal turgor, no rashes or lesions noted. (Gemma Huizar) Course Vital Signs 03/28/20 03/29/20 03/29/20 23:25 00:07 00:30 Temperature 98.2 F Pulse Rate 150 H 95 86 Respiratory 20 18 18 Rate Blood Pressure 129/102 120/82 142/88 O2 Sat by Pulse 95 96 97 Oximetry 03/29/20 03/29/20 03/29/20 00:45 01:00 01:20 Temperature Pulse Rate 86 122 H 126 H Respiratory 18 18 Rate Blood Pressure 119/73 136/89 142/125 O2 Sat by Pulse 98 95 96 Oximetry 03/29/20 03/29/20 03/29/20 01:43 01:47 02:07 Temperature Pulse Rate 90 95 109 H Respiratory 18 16 18 Rate Blood Pressure 121/78 114/86 97/69 O2 Sat by Pulse 96 94 L 96 Oximetry EKG Findings - EKG Comments: EKG Findings:: Atrial fibrillation with RVR, nonspecific ST abnormalities. Ventricular rate 153, QRS duration 86, QT 326. <Gemma Huizar - Last Filed: 03/29/20 01:10> Medical Decision Making - Lab Data Result diagrams: 03/28/20 23:40 03/28/20 23:40 <Gemma Huizar - Last Filed: 03/29/20 01:10> - Lab Data Result diagrams: 03/31/20 03:50 03/31/20 03:50 <Jeffry Villasenor - Last Filed: 03/31/20 07:21> - Medical Decision Making Patient is a 69-year-old female here for palpitations and fluttering since yesterday. She is s/p 16 days from left upper lobectomy secondary to lung cancer. Patient arrived the pulse of 150, afebrile, 95% on room air. Patient's EKG showed A. fib with RVR, with heart rate ranging from 60s to 150. Patient was started on a Cardizem drip. Patient's white count is 18.5, this has been elevated in the past, hemoglobin stable at 10.5. D-dimer is 3.48, troponin is normal at this time. CT of the chest reveals no evidence for PE, moderate to large left pleural effusion. Patient will be admitted under Dr. Hurtado, consults to Dr. العلي, and cardiology. Patient is in agreement with this plan of care. Case discussed with Dr. Villasenor. She will remain on the drip, her heart rate has stabilized into the 80s but does increase to the 120s at times, rest of vitals are normal. (Gemma Huizar) I saw this patient in conjunction with the physician paperhanger assistant. I performed independent history and physical exam. Agree with case management. (Jeffry Jang) - Lab Data Lab Results 03/28/20 03/28/20 03/28/20 Range/Units 23:40 23:40 23:40 WBC 18.5 H (3.8-10.6) k/uL RBC 3.91 (3.80-5.40) m/uL Hgb 10.5 L (11.4-16.0) gm/dL Hct 32.9 L (34.0-46.0) % MCV 84.1 (80.0-100.0) fL MCH 27.0 (25.0-35.0) pg MCHC 32.1 (31.0-37.0) g/dL RDW 14.3 (11.5-15.5) % Plt Count 834 H (150-450) k/uL MPV 6.0 Neutrophils % 81 % Lymphocytes % 9 % Monocytes % 6 % Eosinophils % 1 % Basophils % 1 % Neutrophils # 14.9 H (1.3-7.7) k/uL Lymphocytes # 1.6 (1.0-4.8) k/uL Monocytes # 1.1 H (0-1.0) k/uL Eosinophils # 0.3 (0-0.7) k/uL Basophils # 0.1 (0-0.2) k/uL PT 10.8 (9.0-12.0) sec INR 1.0 (<1.2) APTT 28.1 (22.0-30.0) sec D-Dimer 3.48 H (<0.60) mg/L FEU Sodium 132 L (137-145) mmol/L Potassium 4.3 (3.5-5.1) mmol/L Chloride 98 (98-107) mmol/L Carbon Dioxide 25 (22-30) mmol/L Anion Gap 9 mmol/L BUN 8 (7-17) mg/dL Creatinine 0.49 L (0.52-1.04) mg/dL Est GFR (CKD-EPI)AfAm >90 (>60 ml/min/1.73 sqM) Est GFR (CKD-EPI)NonAf >90 (>60 ml/min/1.73 sqM) Glucose 126 H (74-99) mg/dL Calcium 9.1 (8.4-10.2) mg/dL Magnesium 1.9 (1.6-2.3) mg/dL Total Bilirubin 0.7 (0.2-1.3) mg/dL AST 34 (14-36) U/L ALT 45 H (4-34) U/L Alkaline Phosphatase 185 H (38-126) U/L Troponin I (0.000-0.034) ng/mL Total Protein 6.5 (6.3-8.2) g/dL Albumin 3.2 L (3.5-5.0) g/dL Coronavirus (PCR) (Not Detectd) 03/28/20 03/29/20 Range/Units 23:40 01:09 WBC (3.8-10.6) k/uL RBC (3.80-5.40) m/uL Hgb (11.4-16.0) gm/dL Hct (34.0-46.0) % MCV (80.0-100.0) fL MCH (25.0-35.0) pg MCHC (31.0-37.0) g/dL RDW (11.5-15.5) % Plt Count (150-450) k/uL MPV Neutrophils % % Lymphocytes % % Monocytes % % Eosinophils % % Basophils % % Neutrophils # (1.3-7.7) k/uL Lymphocytes # (1.0-4.8) k/uL Monocytes # (0-1.0) k/uL Eosinophils # (0-0.7) k/uL Basophils # (0-0.2) k/uL PT (9.0-12.0) sec INR (<1.2) APTT (22.0-30.0) sec D-Dimer (<0.60) mg/L FEU Sodium (137-145) mmol/L Potassium (3.5-5.1) mmol/L Chloride (98-107) mmol/L Carbon Dioxide (22-30) mmol/L Anion Gap mmol/L BUN (7-17) mg/dL Creatinine (0.52-1.04) mg/dL Est GFR (CKD-EPI)AfAm (>60 ml/min/1.73 sqM) Est GFR (CKD-EPI)NonAf (>60 ml/min/1.73 sqM) Glucose (74-99) mg/dL Calcium (8.4-10.2) mg/dL Magnesium (1.6-2.3) mg/dL Total Bilirubin (0.2-1.3) mg/dL AST (14-36) U/L ALT (4-34) U/L Alkaline Phosphatase (38-126) U/L Troponin I <0.012 (0.000-0.034) ng/mL Total Protein (6.3-8.2) g/dL Albumin (3.5-5.0) g/dL Coronavirus (PCR) Not Detected (Not Detectd) Critical Care Time Critical Care Time: Yes Total Critical Care Time: 35 (Patient arrived with heart rate 150, EKG shows A. fib with RVR, this is new to patient. Patient was started on Cardizem drip to control heart rate. CT of the chest reveals a large left pleural effusion, patient will be admitted.) <Gemma Huizar - Last Filed: 03/29/20 01:10> Disposition Is patient prescribed a controlled substance at d/c from ED?: No Time of Disposition: 01:09 Decision Date: 03/29/20 Decision Time: 01:09 <Gemma Huizar - Last Filed: 03/29/20 01:10> <Jeffry Villasenor - Last Filed: 03/31/20 07:21> Clinical Impression: Pleural effusion, left, Atrial fibrillation with RVR, Palpitations Disposition: ADMITTED IP TO THIS HOSP Condition: Stable
[2020-03-29] LABS: Basophils # (A) 0.1 k/uL (0-0.2); Basophils % (A) 1 %; Eosinophils # (A) 0.3 k/uL (0-0.7); Eosinophils % (A) 1 %; HCT 32.9 % (34.0-46.0); HGB 10.5 gm/dL (11.4-16.0); Lymphocytes # (A) 1.6 k/uL (1.0-4.8); Lymphocytes % (A) 9 %; MCHC 32.1 g/dL (31.0-37.0); MCV 84.1 fL (80.0-100.0); Monocytes # (A) 1.1 k/uL (0-1.0); Monocytes % (A) 6 %; Neutrophils # (A) 14.9 k/uL (1.3-7.7); Neutrophils % (A) 81 %; Platelet Count 834 k/uL (150-450); RBC 3.91 m/uL (3.80-5.40); RDW 14.3 % (11.5-15.5); WBC 18.5 k/uL (3.8-10.6)
[2020-03-29] MEDS: DILTIAZEM 125 MG in SODIUM CHLORIDE 0.9% 100 ML IV SCH (00:04)
[2020-03-29 00:06] LABS: Partial Thromboplastin Time 28.1 sec (22.0-30.0); Prothrombin Time 10.8 sec (9.0-12.0)
[2020-03-29 00:11] LABS: D-Dimer 3.48 mg/L FEU (<0.60)
[2020-03-29 00:13] LABS: ALT 45 U/L (4-34); AST 34 U/L (14-36); African American GFR (CKD) >90 (>60 ml/min/1.73 sqM); Albumin 3.2 g/dL (3.5-5.0); Alkaline Phosphatase 185 U/L (38-126); Anion Gap 9 mmol/L; Blood Urea Nitrogen 8 mg/dL (7-17); Calcium 9.1 mg/dL (8.4-10.2); Carbon Dioxide 25 mmol/L (22-30); Chloride 98 mmol/L (98-107); Glucose 126 mg/dL (74-99); Magnesium 1.9 mg/dL (1.6-2.3); Non-African American GFR(CKD) >90 (>60 ml/min/1.73 sqM); Potassium 4.3 mmol/L (3.5-5.1); Sodium 132 mmol/L (137-145); Total Bilirubin 0.7 mg/dL (0.2-1.3); Total Protein 6.5 g/dL (6.3-8.2)
--- NOTE | 2020-03-29 00:49 | CT ---
ADDENDUM - Added by Claudy Soria MD on 03/29/2020 12:55 AM (-08:00) It should be noted that following discussions with the nurse practitioner, I am aware that the patient has recently undergone partial left pneumonectomy. The findings within the left lung are therefore related to pneumonectomy and did not represent pneumothorax. EXAM: CT Angiography Chest With Intravenous Contrast CLINICAL HISTORY: ITS.REASON CT Reason: PE likely, dyspnea, palpitations TECHNIQUE: Axial computed tomographic angiography images of the chest with intravenous contrast. CTDI is 12.4 mGy and DLP is 234.1 mGy-cm. This CT exam was performed using one or more of the following dose reduction techniques: automated exposure control, adjustment of the mA and/or kV according to patient size, and/or use of iterative reconstruction technique. MIP reconstructed images were created and reviewed. COMPARISON: No previous studies. FINDINGS: Pulmonary arteries: No central or peripheral pulmonary emboli detected. Aorta: No acute findings. No thoracic aortic aneurysm. Lungs: Minimal subsegmental atelectasis at the right lung base posteriorly. Moderate to large quantity of fluid at the left lung base posteriorly. A 0.5 cm noncalcified nodule is noted within the posterior aspect of the right midlung best seen on series 401 image 44. A 0.7 cm nodule at the left lung base best seen on coronal image 29. Areas of subsegmental atelectasis within the partially aerated left lung. Pleural space: The right lung is well aerated without pleural effusions. There is a large left-sided pneumothorax with a component at the right apex and a second component at the right lung base. Loculated pleural effusion at the right upper lobe. Heart: The heart is normal in size. No significant pericardial effusion. No evidence of RV dysfunction. Bones/joints: Moderate to severe degenerative disc disease of the thoracic spine and kyphosis. The sternum is unremarkable. No acute fracture. No dislocation. Soft tissues: Unremarkable. Lymph nodes: Unremarkable. No enlarged lymph nodes. Other findings: Minimal fibronodular scarring at the right apex. IMPRESSION: 1. No pulmonary embolism. 2. Noncalcified left lung nodules which should be followed based on Fleischner Society guidelines. Metastatic disease cannot be excluded. 3. Large left-sided pneumothorax with a left apical component and the component at the left lung base. 4. Moderate to large left pleural effusion part of which is loculated at the left apex. 5. Fatty liver. 6. Nonspecific stranding about the perinephric spaces. <MYCVCSECTION> Communications: 03/29/20 00:53 Call Doctor Regarding Above results, called CASH Huizar on 03/29 00:53 (-05:00)
[2020-03-29] MEDS ORDERED: traMADol 50 MG TAB PO STA (01:03)
[2020-03-29] MEDS ORDERED: HYDROcodone/APAP 5-325MG 1 EACH TAB PO STA (01:03)
[2020-03-29] MEDS ORDERED: NALOXONE 0.4 MG/ML 1 ML VIAL IV PRN (01:06)
[2020-03-29] MEDS: ACETAMINOPHEN TAB 500 MG TAB PO PRN ×2 (07:08→20:37)
[2020-03-29 08:16] LABS: Basophils # (A) 0.1 k/uL (0-0.2); Basophils % (A) 0 %; Eosinophils # (A) 0.2 k/uL (0-0.7); Eosinophils % (A) 1 %; HCT 33.1 % (34.0-46.0); HGB 10.2 gm/dL (11.4-16.0); Hypochromasia Slight; Lymphocytes # (A) 1.6 k/uL (1.0-4.8); Lymphocytes % (A) 9 %; MCH 26.6 pg (25.0-35.0); Mean Platelet Volume 6.2; Monocytes % (A) 6 %; Neutrophils # (A) 13.8 k/uL (1.3-7.7); Neutrophils % (A) 82 %; Platelet Count 876 k/uL (150-450); RBC 3.84 m/uL (3.80-5.40); RDW 14.7 % (11.5-15.5)
[2020-03-29 08:27] LABS: African American GFR (CKD) >90 (>60 ml/min/1.73 sqM); Anion Gap 8 mmol/L; Blood Urea Nitrogen 7 mg/dL (7-17); Calcium 9.2 mg/dL (8.4-10.2); Carbon Dioxide 27 mmol/L (22-30); Chloride 100 mmol/L (98-107); Glucose 103 mg/dL (74-99); Non-African American GFR(CKD) >90 (>60 ml/min/1.73 sqM); Potassium 4.9 mmol/L (3.5-5.1); Sodium 135 mmol/L (137-145)
[2020-03-29] MEDS ORDERED: NON FORMULARY DRUG (Omega-3 Fatty Acids/Fish Oil [Fish Oil 1,000 Mg Softgel] 1 EACH Capsul PO SCH (09:00)
[2020-03-29] MEDS ORDERED: CLOPIDOGREL 75 MG TAB PO SCH (09:00)
[2020-03-29] MEDS ORDERED: carvediloL 12.5 MG TAB PO SCH (09:15)
[2020-03-29] MEDS ORDERED: carvediloL 6.25 MG TAB PO SCH (09:15)
[2020-03-29] MEDS: ZINC SULFATE 220 MG CAP PO SCH (10:19)
[2020-03-29] MEDS: LETROZOLE 2.5 MG TAB PO SCH (10:19)
[2020-03-29] MEDS: MAGNESIUM OXIDE 400 MG TAB PO SCH (10:20)
[2020-03-29] MEDS: CALCIUM CARB-VIT D 500 MG-5 MCG TAB PO SCH (10:20)
[2020-03-29] MEDS: carvediloL 6.25 MG TAB PO SCH ×2 (10:20→20:37)
--- NOTE | 2020-03-29 11:12 | P.GSCN ---
History of Present Illness Consult date: 03/29/20 Reason for Consult: Known to the cardiothoracic surgery service recent left upper lobectomy, left pleural effusion/left pneumothorax. Requesting physician: Gemma Huizar History of present illness: This is a 69-year-old female patient who is followed by Dr. Elvin Melara on an outpatient basis. She also follows with Dr. Shipman from pulmonology. 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 She presents to the emergency department here at [facility] last evening with complaints of shortness of breath and a fluttering feeling in her chest which she describes as a bunch of butterflies flying around in her chest. The patient also reports that she has h ad some complaints of pain with coughing to her left chest incision sites. She also has complaints of a productive cough with thick aguirre colored sputum. She denies any recent fever, chills, nausea, vomiting, headache, hemoptysis or hematemesis. A 12-lead EKG was completed in the emergency department which showed atrial fibrillation with rapid ventricular response with a heart rate of 153 BPM. Initial laboratory results showed a WBC count of 18.5, hemoglobin 10.5, hematocrit 32.9, platelets 834, d-dimer 3.48, BUN 8 and creatinine 0.49. A COVID 19 test was completed which showed not detected. Due to her presenting symptoms and elevated d-dimer a CT angiography chest with intravenous contrast was completed which demonstrated no evidence for pulmonary embolism, noncalcified left lung nodules which metastatic disease could not be excluded, and a large left-sided pneumothorax with left apical component and the component at the left lung base. Subsequently, due to the findings on the CAT scan of the chest and because the patient is known to the cardiothoracic surgery service a consult was placed to Dr. Abdi Robles for further evaluation and treatment recommendations. Review of Systems A 14 point review of systems was completed was negative except as mentioned in the HPI. Past Medical History Past Medical History: Cancer, COPD, Hypertension, Osteoarthritis (OA) Additional Past Medical History / Comment(s): COPD, squamous cell carcinoma of the lung, per his history of breast cancer 2006 post mastectomy. The patient did not require any chemotherapy following that. She also has carotid artery disease and she has undergone previous endarterectomy. Left upper lobectomy 03/2020 History of Any Multi-Drug Resistant Organisms: None Reported Past Surgical History: Breast Surgery, Cholecystectomy, Hysterectomy Additional Past Surgical History / Comment(s): Status post robotic-assisted left upper lobectomy 03/13/2020, lung bx, cataract surgery,left mastectomy with lymph node dissection,lt carotid endartarectomy. Past Anesthesia/Blood Transfusion Reactions: No Reported Reaction Additional Past Anesthesia/Blood Transfusion Reaction / Comm: states doesn't ne ed much anesthesia to be put under Past Psychological History: Anxiety Additional Psychological History / Comment(s): not on medications for it Smoking Status: Former smoker (Quit smoking in February 2020.) Past Alcohol Use History: None Reported Additional Past Alcohol Use History / Comment(s): quit smoking Feb 2020, smoker one and a half packs of cigarettes per day and started when she was a teenager. Shows a has history of alcohol intake but quit many years ago. Past Drug Use History: None Reported - Past Family History Mother Family Medical History: Cancer Additional Family Medical History / Comment(s): Mother at age 76 from breast cancer with metastatic disease to bone and brain. Father Family Medical History: Myocardial Infarction ([place]) Additional Family Medical History / Comment(s): Father at age 73 from myocardial infarction. Brother(s) Family Medical History: Myocardial Infarction ([place]) Additional Family Medical History / Comment(s): She had 3 brothers and one of them with [place] still alive other one is healthy and third one committed suicide. Sister(s) Family Medical History: Cancer, Hypertension Additional Family Medical History / Comment(s): Patient has 3 sisters with hypertension. lung cancer Daughter(s) Family Medical History: No Reported History Additional Family Medical History / Comment(s): Patient has one daughter with no major medical problems. Medications and Allergies Home Medications Medication Instructions Recorded Confirmed Type Letrozole [Femara] 2.5 mg PO DAILY 04/28/18 12/26/20 History Clopidogrel [Plavix] 75 mg PO DAILY 01/30/19 03/29/20 History Albuterol Nebulized [Ventolin 2.5 mg INHALATION RT-QID PRN 03/29/20 03/29/20 History Nebulized] HYDROcodone/APAP 5-325MG [Home 1 tab PO Q6H PRN 03/29/20 03/29/20 History 5-325] LORazepam [Ativan] 0.5 mg PO HS PRN 03/29/20 03/29/20 History carvediloL [Coreg] 6.25 mg PO BID 03/29/20 03/29/20 History traMADol HCL 50 mg PO Q6H PRN 03/29/20 03/29/20 History Allergies Allergy/AdvReac Type Severity Reaction Status Date / Time aspirin Allergy rectal Verified 03/29/20 09:06 bleeding Penicillins Allergy Anaphylaxis Verified 03/29/20 09:06 tetanus and diphtheria Allergy severe Verified 03/29/20 09:06 toxoids swelling steroids AdvReac severe Uncoded 03/28/20 23:27 muscle pain Surgical - Exam Vital Signs Temp Pulse Resp BP Pulse Ox 98.2 F 150 H 20 129/102 95 03/28/20 23:25 03/28/20 23:25 03/28/20 23:25 03/28/20 23:25 03/28/20 23:25 - General well developed, well nourished, no distress, moderate pain (To her left chest incision sites) - Eyes PERRL, normal ocular movement, no icteric - ENT normal pinna, normal nares, normal mucosa, no hearing loss, no congestion - Neck Neck is supple, no lymphadenopathy. no masses, no bruits, trachea midline, no venous distension - Respiratory Lung sounds essentially clear to her right lobes, left lobe diminished. No wheezes, rhonchi or crackles. Respirations are symmetrical and nonlabored. - Cardiovascular Regular rhythm and rate. S1 and S2 present, negative for S3, or gallop. Positive systolic murmur 2/6 heard best her left sternal border. No edema present. Remote telemetry showing normal sinus rhythm heart rate 79 BPM with o ccasional PACs. - Abdomen Abdomen is soft, nontender and nondistended. Active bowel sounds present in all 4 abdominal quadrants. Nothing by mouth at this time. - Genitourinary Deferred - Rectum Deferred - Integumentary Left chest incisions clean, dry and approximated. No drainage or redness is present. Skin is warm to touch. No clubbing or cyanosis is present. no rash, no growths, no abnormal pigmentation - Neurologic Cranial nerves II through XII intact. - Musculoskeletal normal gait, normal posture - Psychiatric oriented to time, oriented to person, oriented to place, speech is normal, memory intact Results - Labs 03/29/20 07:09 03/29/20 07:09 Abnormal Lab Results - Last 24 Hours (Table) 03/28/20 03/28/20 03/28/20 Range/Units 23:40 23:40 23:40 WBC 18.5 H (3.8-10.6) k/uL Hgb 10.5 L (11.4-16.0) gm/dL Hct 32.9 L (34.0-46.0) % Plt Count 834 H (150-450) k/uL Neutrophils # 14.9 H (1.3-7.7) k/uL Monocytes # 1.1 H (0-1.0) k/uL D-Dimer 3.48 H (<0.60) mg/L FEU Sodium 132 L (137-145) mmol/L Creatinine 0.49 L (0.52-1.04) mg/dL Glucose 126 H (74-99) mg/dL ALT 45 H (4-34) U/L Alkaline Phosphatase 185 H (38-126) U/L Albumin 3.2 L (3.5-5.0) g/dL 03/29/20 03/29/20 Range/Units 07:09 07:09 WBC 17.0 H (3.8-10.6) k/uL Hgb 10.2 L (11.4-16.0) gm/dL Hct 33.1 L (34.0-46.0) % Plt Count 876 H (150-450) k/uL Neutrophils # 13.8 H (1.3-7.7) k/uL Monocytes # (0-1.0) k/uL D-Dimer (<0.60) mg/L FEU Sodium 135 L (137-145) mmol/L Creatinine (0.52-1.04) mg/dL Glucose 103 H (74-99) mg/dL ALT (4-34) U/L Alkaline Phosphatase (38-126) U/L Albumin (3.5-5.0) g/dL Diabetes panel 03/28/20 03/29/20 Range/Units 23:40 07:09 Sodium 132 L 135 L (137-145) mmol/L Potassium 4.3 4.9 (3.5-5.1) mmol/L Chloride 98 100 (98-107) mmol/L Carbon Dioxide 25 27 (22-30) mmol/L BUN 8 7 (7-17) mg/dL Creatinine 0.49 L 0.54 (0.52-1.04) mg/dL Glucose 126 H 103 H (74-99) mg/dL Calcium 9.1 9.2 (8.4-10.2) mg/dL AST 34 (14-36) U/L ALT 45 H (4-34) U/L Alkaline Phosphatase 185 H (38-126) U/L Total Protein 6.5 (6.3-8.2) g/dL Albumin 3.2 L (3.5-5.0) g/dL Calcium panel 03/28/20 03/29/20 Range/Units 23:40 07:09 Calcium 9.1 9.2 (8.4-10.2) mg/dL Albumin 3.2 L (3.5-5.0) g/dL Pituitary panel 03/28/20 03/29/20 Range/Units 23:40 07:09 Sodium 132 L 135 L (137-145) mmol/L Potassium 4.3 4.9 (3.5-5.1) mmol/L Chloride 98 100 (98-107) mmol/L Carbon Dioxide 25 27 (22-30) mmol/L BUN 8 7 (7-17) mg/dL Creatinine 0.49 L 0.54 (0.52-1.04) mg/dL Glucose 126 H 103 H (74-99) mg/dL Calcium 9.1 9.2 (8.4-10.2) mg/dL Adrenal panel 03/28/20 03/29/20 Range/Units 23:40 07:09 Sodium 132 L 135 L (137-145) mmol/L Potassium 4.3 4.9 (3.5-5.1) mmol/L Chloride 98 100 (98-107) mmol/L Carbon Dioxide 25 27 (22-30) mmol/L BUN 8 7 (7-17) mg/dL Creatinine 0.49 L 0.54 (0.52-1.04) mg/dL Glucose 126 H 103 H (74-99) mg/dL Calcium 9.1 9.2 (8.4-10.2) mg/dL Total Bilirubin 0.7 (0.2-1.3) mg/dL AST 34 (14-36) U/L ALT 45 H (4-34) U/L Alkaline Phosphatase 185 H (38-126) U/L Total Protein 6.5 (6.3-8.2) g/dL Albumin 3.2 L (3.5-5.0) g/dL - Imaging CT scan - chest: report reviewed, image reviewed Assessment and Plan Assessment: 1. Left pleural effusion 2. Left pneumothorax 3. New-onset paroxysmal atrial fibrillation with rapid ventricular response, currently in normal sinus rhythm 4. Squamous cell carcinoma left upper lobe lung, status post robotic-assisted left upper lobectomy on 03/13/2020 5. Hypertension 6. Mild to moderate chronic obstructive pulmonary disease with a recent FEV1 72% of predicted value 7. History of carotid stenosis, status post left carotid endarterectomy in 2018 8. Previous tobacco dependence quit smoking in February 2020 Plan: The patient was seen and examined at her bedside on the cardiac stepdown unit. Her daughter Mike was on the phone during the evaluation and assessment. Her chart and diagnostics were reviewed. Her case was discussed in detail with Dr. Abdi Robles from cardiothoracic surgery. The patient is to remain nothing by mouth at this time and will be scheduled for a left sided pleural chest tube and a bronchoscopy for today to be scheduled around noon. Risks and benefits of the procedures have been discussed with the patient and her daughter Mike. Continue to optimize medical management and pain control per current when necessary orders. Encourage use of incentive spirometry 10 times every hour while awake. Dr. Renteria from pulmonary critical care medicine has been consulted as she follows with Dr. Shipman on an outpatient basis. GI and DVT prophylaxis. More recommendations follow based on patient's clinical course. Thank you for this consult and we look for to working with you in the care of this patient. Time with Patient: Greater than 30
[2020-03-29] MEDS ORDERED: IPRATROPIUM-ALBUTEROL 3 ML NEB INHALATION PRN (11:14)
[2020-03-29] MEDS ORDERED: VANCOMYCIN 1,000 MG in SODIUM CHLORIDE 0.9% 250 ML IVPB STA (11:14)
--- NOTE | 2020-03-29 11:20 | P.CRDCN ---
History of Present Illness Consult date: 03/29/20 History of present illness: CHIEF COMPLAINT: New-onset A. fib HISTORY OF PRESENT ILLNESS: This is a 69-year-old female with a past medical history significant for COPD, breast cancer, lung cancer with recent left upper lobe lobectomy, and carotid stenosis with previous left carotid endarterectomy. Patient does not follow with a bulldogger. We have been asked to see the patient in consultation for new onset A. fib. Patient presented to the emergency room secondary to palpitations. Patient was found to be in atrial f ibrillation. She was started on a Cardizem drip. At the time of examination this morning she is in sinus rhythm with a heart rate in the 60s. The patient denies any chest pain or pressure. She denies feeling any palpitations at this time. DIAGNOSTICS: EKG reveals A. fib with RVR Chest CTA: Negative for PE. Moderate to large left pleural effusion. Laboratory data: WBC 17.0. Hemoglobin 10.2. Platelet count 876. D-dimer 3.47. Sodium 135. Potassium 4.9. BUN 7. Creatinine 0.54. Current home cardiac medications include carvedilol 6.25 mg twice a day, Plavix any 5 mg daily REVIEW OF SYSTEMS: At the time of my exam: CONSTITUTIONAL: Denies fever or chills. HEENT: Denies blurred vision, vision changes, or eye pain. Denies hemoptysis CARDIOVASCULAR: Denies chest pain, orthopnea, PND or palpitations RESPIRATORY: No shortness of breath. GASTROINTESTINAL: Denies abdominal pain. Denies nausea or vomiting. HEMATOLOGIC: Denies bleeding disorders. GENITOURINARY: Denies any blood in urine. SKIN: Denies pruitis. Denies rash. PHYSICAL EXAM: VITAL SIGNS: Reviewed. GENERAL: Well-developed in no acute distress. HEENT: Head is normocephalic. Pupils are equal, round. Sclerae anicteric. Mucous membranes of the mouth are moist. Neck supple. No JVD or thyromegaly LUNGS: Respirations even and unlabored. Lungs diminished. HEART: Regular rate and rhythm. S1 and S2 heard. ABDOMEN: Soft. Nondistended. Nontender. EXTREMITIES: Normal range of motion. No clubbing or cyanosis. Peripheral pulses intact. No lower extremity edema NEUROLOGIC: Awake and alert. Oriented x 3. ASSESSMENT: New-onset paroxysmal atrial fibrillation with RVR, currently maintaining sinus mechanism History of lung cancer, status post recent left upper lobectomy Large left pleural effusion Carotid stenosis, status post left carotid endarterectomy, maintained on Plavix COPD PLAN: Discontinue Cardizem drip Resume carvedilol. Will continue patient's home dose at this time secondary to systolic blood pressure in the 80s at time of examination. Obtain 2-D echo to assess cardiac structure and function Patient scheduled for left pleural chest tube placement and bronchoscopy today with Dr. Robles Patient will require anticoagulation for her atrial fibrillation. Discussed oral anticoagulation with patient and her daughter via the phone. Daughter states "I do not want you just starting all sorts of new medications on my mother". Explained reasoning for beginning anticoagulation. Explained we would utilize IV heparin in the meantime secondary to patient going for left chest tube and bronchoscopy today. Recommend starting IV heparin after patient's procedure today if okay with cardiothoracic surgery. Further recommendations pending patient's course Nurse practitioner note has been reviewed by physician. Signing provider agrees with the documented findings, assessment, and plan of care. Past Medical History Past Medical History: Cancer, COPD, Hypertension, Osteoarthritis (OA) Additional Past Medical History / Comment(s): COPD, squamous cell carcinoma of the lung, per his history of breast cancer 2006 post mastectomy. The patient did not require any chemotherapy following that. She also has carotid artery disease and she has undergone previous endarterectomy. Left upper lobectomy 03/2020 History of Any Multi-Drug Resistant Organisms: None Reported Past Surgical History: Breast Surgery, Cholecystectomy, Hysterectomy Additional Past Surgical History / Comment(s): lung bx, cataract surgery,left mastectomy with lymph node dissection,lt carotid endartarectomy, left upper lobectomy 03/23 Past Anesthesia/Blood Transfusion Reactions: No Reported Reaction Additional Past Anesthesia/Blood Transfusion Reaction / Comment(s): states doesn't need much anesthesia to be put under Past Psychological History: Anxiety Additional Psychological History / Comment(s): not on medications for it Smoking Status: Former smoker Past Alcohol Use History: None Reported Additional Past Alcohol Use History / Comment(s): quit smoking Feb 2020, smoker one and a half packs of cigarettes per day and started when she was a teenager. Shows a has history of alcohol intake but quit many years ago. Past Drug Use History: None Reported - Past Family History Mother Family Medical History: Cancer Additional Family Medical History / Comment(s): Mother at age 76 from breast cancer with metastatic disease to bone and brain. Father Family Medical History: Myocardial Infarction ([place]) Additional Family Medical History / Comment(s): Father at age 73 from myocardial infarction. Brother(s) Family Medical History: Myocardial Infarction ([place]) Additional Family Medical History / Comment(s): She had 3 brothers and one of them with [place] still alive other one is healthy and third one committed suicide. Sister(s) Family Medical History: Cancer, Hypertension Additional Family Medical History / Comment(s): Patient has 3 sisters with hypertension. lung cancer Daughter(s) Family Medical History: No Reported History Additional Family Medical History / Comment(s): Patient has one daughter with no major medical problems. Medications and Allergies Home Medications Medication Instructions Recorded Confirmed Type Letrozole [Femara] 2.5 mg PO DAILY 07/30/17 03/29/20 History Clopidogrel [Plavix] 75 mg PO DAILY 01/30/19 03/29/20 History Albuterol Nebulized [Ventolin 2.5 mg INHALATION RT-QID PRN 03/29/20 03/29/20 History Nebulized] HYDROcodone/APAP 5-325MG [Christine 1 tab PO Q6H PRN 03/29/20 03/29/20 History 5-325] LORazepam [Ativan] 0.5 mg PO HS PRN 03/29/20 03/29/20 History carvediloL [Coreg] 6.25 mg PO BID 03/29/20 03/29/20 History traMADol HCL 50 mg PO Q6H PRN 03/29/20 03/29/20 History Allergies Allergy/AdvReac Type Severity Reaction Status Date / Time aspirin Allergy rectal Verified 03/29/20 09:06 bleeding Penicillins Allergy Anaphylaxis Verified 03/29/20 09:06 tetanus and diphtheria Allergy severe Verified 03/29/20 09:06 toxoids swelling steroids AdvReac severe Uncoded 03/28/20 23:27 muscle pain Physical Exam Vitals: Vital Signs Temp Pulse Pulse Pulse Resp BP BP 03/29/20 09:36 03/29/20 04:10 123 H 123 H 20 03/29/20 03:58 98.6 F 123 H 19 131/79 03/29/20 02:51 98.6 F 123 H 19 131/79 03/29/20 02:45 98.7 F 102 H 16 101/72 03/29/20 02:07 109 H 18 97/69 03/29/20 01:47 95 16 114/86 03/29/20 01:43 90 18 121/78 03/29/20 01:20 126 H 142/125 03/29/20 01:00 122 H 18 136/89 03/29/20 00:45 86 18 119/73 03/29/20 00:30 86 18 142/88 03/29/20 00:07 95 18 120/82 03/28/20 23:25 98.2 F 150 H 20 129/102 Pulse Ox 03/29/20 09:36 96 03/29/20 04:10 03/29/20 03:58 98 03/29/20 02:51 98 03/29/20 02:45 97 03/29/20 02:07 96 03/29/20 01:47 94 L 03/29/20 01:43 96 03/29/20 01:20 96 03/29/20 01:00 95 03/29/20 00:45 98 03/29/20 00:30 97 03/29/20 00:07 96 03/28/20 23:25 95 Intake and Output 03/28/20 03/29/20 03/29/20 22:59 06:59 14:59 Intake Total 0 Output Total 400 Balance -400 0 Intake: Oral 0 Output: Urine 400 Other: Voiding Method Toilet # Voids 2 Weight 64 kg Results 03/29/20 07:09 03/29/20 07:09 Cardiac Enzymes 03/28/20 03/28/20 Range/Units 23:40 23:40 AST 34 (14-36) U/L Troponin I <0.012 (0.000-0.034) ng/mL Coagulation 03/28/20 Range/Units 23:40 PT 10.8 (9.0-12.0) sec APTT 28.1 (22.0-30.0) sec CBC 03/28/20 03/29/20 Range/Units 23:40 07:09 WBC 18.5 H 17.0 H (3.8-10.6) k/uL RBC 3.91 3.84 (3.80-5.40) m/uL Hgb 10.5 L 10.2 L (11.4-16.0) gm/dL Hct 32.9 L 33.1 L (34.0-46.0) % Plt Count 834 H 876 H (150-450) k/uL Comprehensive Metabolic Panel 03/28/20 03/29/20 Range/Units 23:40 07:09 Sodium 132 L 135 L (137-145) mmol/L Potassium 4.3 4.9 (3.5-5.1) mmol/L Chloride 98 100 (98-107) mmol/L Carbon Dioxide 25 27 (22-30) mmol/L BUN 8 7 (7-17) mg/dL Creatinine 0.49 L 0.54 (0.52-1.04) mg/dL Glucose 126 H 103 H (74-99) mg/dL Calcium 9.1 9.2 (8.4-10.2) mg/dL AST 34 (14-36) U/L ALT 45 H (4-34) U/L Alkaline Phosphatase 185 H (38-126) U/L Total Protein 6.5 (6.3-8.2) g/dL Albumin 3.2 L (3.5-5.0) g/dL Current Medications Generic Name Dose Route Start Last Admin Trade Name Freq PRN Reason Stop Dose Admin Acetaminophen 1,000 mg 03/29/20 09:00 03/29/20 07:08 Acetaminophen Tab 500 Mg Tab PO 1,000 mg Q6HR PRN Administration Fever and/ or Pain Hydrocodone Bitart/Acetaminophen 1 each 03/29/20 11:05 Hydrocodone/Apap 5-325mg 1 Each Tab PO Q6H PRN Pain Calcium Carbonate 1 each 03/29/20 09:00 03/29/20 10:20 Calcium Carb-Vit D 500mg-200un 1 Each Tab PO 1 each DAILY MALA Administration Carvedilol 6.25 mg 03/29/20 09:45 03/29/20 10:20 Carvedilol 6.25 Mg Tab PO 6.25 mg BID MALA Administration Clopidogrel Bisulfate 75 mg 03/29/20 09:00 Clopidogrel 75 Mg Tab PO DAILY MALA Diltiazem HCl 125 mg/ Sodium 125 mls @ 5 mls/hr 03/28/20 23:45 03/29/20 00:04 Chloride IV 5 mg/hr .Q24H MALA 5 mls/hr Administration 5 MG/HR Clindamycin Phosphate 900 mg/ 56 mls @ 50 mls/hr 03/29/20 12:00 Dextrose/Water IVPB 03/29/20 13:07 ONCE ONE Letrozole 2.5 mg 03/29/20 09:00 03/29/20 10:19 Letrozole 2.5 Mg Tab PO 2.5 mg DAILY MALA Administration Magnesium Oxide 200 mg 03/29/20 09:00 03/29/20 10:20 Magnesium Oxide 400 Mg Tab PO 200 mg DAILY MALA Administration Naloxone HCl 0.2 mg 03/29/20 01:06 Naloxone 0.4 Mg/Ml 1 Ml Vial IV Q2M PRN Opioid Reversal Non-Formulary Medication 50 mg 03/29/20 11:05 Tramadol Hcl PO Q6H PRN Pain Ondansetron HCl 4 mg 03/29/20 01:06 Ondansetron 4 Mg/2 Ml Vial IVP Q8HR PRN Nausea And Vomiting Zinc Sulfate 220 mg 03/29/20 09:00 03/29/20 10:19 Zinc Sulfate 220 Mg Cap PO 220 mg DAILY MALA Administration Intake and Output 03/28/20 03/29/20 03/29/20 22:59 06:59 14:59 Intake Total 0 Output Total 400 Balance -400 0 Intake: Oral 0 Output: Urine 400 Other: Voiding Method Toilet # Voids 2 Weight 64 kg 03/29/20 07:09 03/29/20 07:09
[2020-03-29] MEDS ORDERED: fentaNYL (PF) 50 MCG/ML 2 ML AMP ONE (11:40)
[2020-03-29] MEDS ORDERED: ETOMIDATE 2 MG/ML 10 ML VIAL ONE (11:40)
[2020-03-29] MEDS ORDERED: SUCCINYLCHOLINE CHLORIDE 100 MG/5 ML SYR IV ONE (11:40)
[2020-03-29] MEDS ORDERED: SODIUM CHLORIDE 0.9% 500 ML 500 ML IV ONE (11:43)
[2020-03-29] MEDS ORDERED: CLINDAMYCIN 900 MG in DEXTROSE 5% IN WATER 50 ML IVPB ONE ×2 (12:00)
[2020-03-29] MEDS ORDERED: LACTATED RINGERS 1,000 ML IV ONE (12:05)
[2020-03-29] MEDS: MORPHINE SULFATE 4 MG/ML SYRINGE IVP ONE ×4 (12:25→13:09)
--- NOTE | 2020-03-29 12:32 | P.HPIM ---
History of Present Illness H&P Date: 03/29/20 Chief Complaint: A. fib with RVR, severe dyspnea and shortness of breath, left sided pneumot 69-year-old female one of Dr. 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 Patient also efrem vival of rest cancer post left mastectomy in 2010 post chemotherapy also she is known to have history of carotid stenosis post left carotid endarterectomy in 2018 previous history of tobacco use she quit in February this year continue to have moderate COPD with FEV1 of 72 percentile history of hypertension hyperlipidemia. Patient left the hospital on March 17 after surgery was seen pulmonary and cardiothoracic surgery on regular basis she returned to the emergency department shortly after midnight today because of worsening dyspnea and shortness of breath with significant tachycardia according to patient she become more symptomatic with rapid ventricular response on and off become more s ymptomatic causing worsening shortness of breath. Was seen and evaluated demurs department her white blood cell was 18.5 hemoglobin 10.5 hematocrit 32.9 d-dimer was 2.48 patient COVID 19 testing was negative she found to be in A. fib with RVR pulse 153 beats per minutes cardiology were called along with cardiothoracic patient chest x-ray showed pleural effusion and pneumothorax of the left side. She was started on Cardizem drip brought the pulse rate down no anticoagulation was started this point patient was on Plavix since her carotid surgery and no previous history of A. fib her pulse rate used to be well controlled on Coreg 6.25 mg twice a day in the past. Patient will be going to the OR by cardiothoracic and she will have more repair along with chest tube as well. Review of Systems CONSTITUTIONAL: Well-developed mild respiratory distress EYES: No icterus sclerae, no conjunctivitis. EARS, NOSE, MOUTH, THROAT, and FACE: No sore throat, lymphadenopathy, carotid bruits or deformity. RESPIRATORY: Positive shortness of breath cough wheezes was significant left- sided chest pain CARDIOVASCULAR: Positive PND orthopnea palpitation. GASTROINTESTINAL: No Abd pain, Nausea or vomiting, no Diarrhea or constipation, No GI Bleed, no distention or masses. GENITOURINARY: Negative for Hematuria or UTI, no kidney stones. INTEGUMENT/BREAST: Negative for any muscular injury with mild osteoarthritis.. HEMATOLOGIC/LYMPHATIC: Negative for bleed or purpura. MUSCULOSKELTAL: Negative for Myalgia or arthralgia. NEURLOGICAL: No LOC, Sz or syncope, blurred vision dizziness or abnormality.. BEHAVIORAL/PSYCH: Negative. ENDOCRINE: Negative. Past Medical History Past Medical History: Cancer, COPD, Hypertension, Osteoarthritis (OA) Additional Past Medical History / Comment(s): COPD, squamous cell carcinoma of the lung, per his history of breast cancer 2006 post mastectomy. The patient did not require any chemotherapy following that. She also has carotid artery disease and she has undergone previous endarterectomy. Left upper lobectomy 03/2020 History of Any Multi-Drug Resistant Organisms: None Reported Past Surgical History: Breast Surgery, Cholecystectomy, Hysterectomy Additional Past Surgical History / Comment(s): lung bx, cataract surgery,left mastectomy with lymph node dissection,lt carotid endartarectomy, left upper lobectomy 03/23 Past Anesthesia/Blood Transfusion Reactions: No Reported Reaction Additional Past Anesthesia/Blood Transfusion Reaction / Comment(s): states doesn't need much anesthesia to be put under Past Psychological History: Anxiety Additional Psychological History / Comment(s): not on medications for it Smoking Status: Former smoker Past Alcohol Use History: None Reported Additional Past Alcohol Use History / Comment(s): quit smoking Feb 2020, smoker one and a half packs of cigarettes per day and started when she was a teenager. Shows a has history of alcohol intake but quit many years ago. Past Drug Use History: None Reported - Past Family History Mother Family Medical History: Cancer Additional Family Medical History / Comment(s): Mother at age 76 from breast cancer with metastatic disease to bone and brain. Father Family Medical History: Myocardial Infarction ([place]) Additional Family Medical History / Comment(s): Father at age 73 from myocardial infarction. Brother(s) Family Medical History: Myocardial Infarction ([place]) Additional Family Medical History / Comment(s): She had 3 brothers and one of them with [place] still alive other one is healthy and third one committed suicide. Sister(s) Family Medical History: Cancer, Hypertension Additional Family Medical History / Comment(s): Patient has 3 sisters with hypertension. lung cancer Daughter(s) Family Medical History: No Reported History Additional Family Medical History / Comment(s): Patient has one daughter with no major medical problems. Medications and Allergies Home Medications Medication Instructions Recorded Confirmed Type Letrozole [Femara] 2.5 mg PO DAILY 07/30/17 03/29/20 History Clopidogrel [Plavix] 75 mg PO DAILY 01/30/19 03/29/20 History Albuterol Nebulized [Ventolin 2.5 mg INHALATION RT-QID PRN 03/29/20 03/29/20 History Nebulized] HYDROcodone/APAP 5-325MG [[place] 1 tab PO Q6H PRN 03/29/20 03/29/20 History 5-325] LORazepam [Ativan] 0.5 mg PO HS PRN 03/29/20 03/29/20 History carvediloL [Coreg] 6.25 mg PO BID 03/29/20 03/29/20 History traMADol HCL 50 mg PO Q6H PRN 03/29/20 03/29/20 History Allergies Allergy/AdvReac Type Severity Reaction Status Date / Time aspirin Allergy rectal Verified 03/29/20 09:06 bleeding Penicillins Allergy Anaphylaxis Verified 03/29/20 09:06 tetanus and diphtheria Allergy severe Verified 03/29/20 09:06 toxoids swelling steroids AdvReac severe Uncoded 03/28/20 23:27 muscle pain Physical Exam Vitals: Vital Signs Temp Pulse Pulse Pulse Resp BP BP 03/29/20 04:10 123 H 123 H 20 03/29/20 03:58 98.6 F 123 H 19 131/79 03/29/20 02:51 98.6 F 123 H 19 131/79 03/29/20 02:45 98.7 F 102 H 16 101/72 03/29/20 02:07 109 H 18 97/69 03/29/20 01:47 95 16 114/86 03/29/20 01:43 90 18 121/78 03/29/20 01:20 126 H 142/125 03/29/20 01:00 122 H 18 136/89 03/29/20 00:45 86 18 119/73 03/29/20 00:30 86 18 142/88 03/29/20 00:07 95 18 120/82 03/28/20 23:25 98.2 F 150 H 20 129/102 Pulse Ox 03/29/20 04:10 03/29/20 03:58 98 03/29/20 02:51 98 03/29/20 02:45 97 03/29/20 02:07 96 03/29/20 01:47 94 L 03/29/20 01:43 96 03/29/20 01:20 96 03/29/20 01:00 95 03/29/20 00:45 98 03/29/20 00:30 97 03/29/20 00:07 96 03/28/20 23:25 95 Intake and Output 03/28/20 03/28/20 03/29/20 14:59 22:59 06:59 Other: Voiding Method Toilet Weight 64 kg General Appearance: Alert, cooperative, mild distress with mild tachypnea Neck HEENT: Supple, no lymphadenopathy, no thyroid enlargement, no carotid bruits. Lungs: Decreased breath sounds in the left side positive for rhonchi with crackles in the upper part of the chest wall area with mild expiratory wheezes. Chest Wall: Decrease expansion with deep inspiration scar from her incision on the left side looks fine still have slight soreness pain and discomfort and tenderness in the left side of the rib cage compared to the right Heart: Irregular rate and rhythm, S1, S2 normal, no murmur, rub or gallop. Back: Symmetric, no curvature, ROM normal, no CVA tenderness. Abdomen: Soft, non-tender, bowel sounds active all four quadrants, no masses, no organomegaly. Extremities: Extremities normal, atraumatic, no cyanosis or edema. Pulses: 2+ and symmetric. Skin: Skin color, texture, tugor normal, no rashes or lesions. Neurologic: Alert oriented x3 cranial nerves II through XII intact, no motor deficit, no abnormal balance or gait. Results CBC & Chem 7: 03/29/20 07:09 03/29/20 07:09 Labs: Abnormal Lab Results - Last 24 Hours (Table) 03/28/20 03/28/20 03/28/20 Range/Units 23:40 23:40 23:40 WBC 18.5 H (3.8-10.6) k/uL Hgb 10.5 L (11.4-16.0) gm/dL Hct 32.9 L (34.0-46.0) % Plt Count 834 H (150-450) k/uL Neutrophils # 14.9 H (1.3-7.7) k/uL Monocytes # 1.1 H (0-1.0) k/uL D-Dimer 3.48 H (<0.60) mg/L FEU Sodium 132 L (137-145) mmol/L Creatinine 0.49 L (0.52-1.04) mg/dL Glucose 126 H (74-99) mg/dL ALT 45 H (4-34) U/L Alkaline Phosphatase 185 H (38-126) U/L Albumin 3.2 L (3.5-5.0) g/dL Thrombosis Risk Factor Assmnt - DVT/VTE Prophylaxis DVT/VTE Prophylaxis: Pharmacologic Prophylaxis ordered, Mechanical Prophylaxis ordered - Choose All That Apply Any of the Below Risk Factors Present?: Yes Each Factor Represents 1 point: Abnormal pulmonary function (COPD) Each Risk Factor Represents 2 Points: Age 61-74 years Thrombosis Risk Factor Assessment Total Risk Factor Score: 3 Thrombosis Risk Factor Assessment Level: Moderate Risk Assessment and Plan Assessment: 1 new onset of A. fib with RVR: Patient was started on Cardizem drip we'll consult cardiology echocardiogram will be done patient remain on Coreg if no respond will add amiodarone and anticoagulation will be held that she seen cardiothoracic to decide with severe with the pleural effusion and pneumothorax. 2 large left-sided pleural effusion and pneumothorax: Patient be going back to the OR for surgery and she will have chest tube afterward. Whether there is a sign of abscess or Empyema is to be determined specially with the high white blood cell patient was giving 1 g of Vanco and waiting for surgery. 3 squama cell carcinoma of the left upper lobe: Post robotic-assisted left upper lobectomy based on pathology and recommendation by cardiothoracic with decide with the patient need chemotherapy or not. 4 COPD: Patient will be continue on DuoNeb and possible Pulmicort continue O2 and titrate dose higher. 5 PAD: Post left carotid endarterectomy has been doing well since. 6 history of breast cancer post left-sided mastectomy and chemotherapy has been in remission. 7 history of hypertension: Was on Coreg has been doing well. 8 anxiety and panic attack has been on lorazepam. 9 possible Empyema: Was still be on antibiotic till culture from the pleural fluid is done. 10 mild anemia: Mostly iron deficiency continue iron supplement. 11 hypoglycemia: On diet control. 12 DVT prophylaxis: Patient will be on Lovenox subcutaneous. 13 GI prophylaxis: We'll continue patient on pantoprazole IV. CODE STATUS: Full code. Admit patient to inpatient service for more than 2 night stay.
[2020-03-29] MEDS ORDERED: VANCOMYCIN IV PER PHARMACY 1 EACH MISC MISCELLANE PRN (12:35)
--- NOTE | 2020-03-29 12:41 | P.OP ---
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 Left chest tube was indicated for presence of pleural effusion and air- fluid levels. Bronchoscopy was indicated to rule out bronchial stump leak. Operative Findings: Fiberoptic bronchoscopy demonstrated normal findings on the right. Left main stylet stem bronchus was patent. The left upper lobe bronchial stump was broken down. There was a large amount of mucoid material present which was partially suctioned free and irrigated free. Complete breakdown of the bronchial stump was evident with visualization into the left pleural space. The left lower lobe was patent. On placement of the chest tube in the lower portion of the chest cavity, some cloudy primarily serous fluid was encountered. Description of Procedure: The patient was brought to the operating room, placed supine on the operating table, anesthetized and intubated with a 8 mm tube. Fiberoptic bronchoscopy was performed with findings as noted above. Endobronchial washings on the left side were performed. The left lateral chest was sterilely prepped and draped. 1 cm incision was made over the sixth interspace in the midaxillary line carried down through skin and subcutaneous tissue under lidocaine anesthesia. Pleural space was entered here and serous fluid was encountered. A 28-[place] chest tube was placed in the left pleural space. Was secured with an 0 Ethibond stitch and connected to a Pleur-evac after collecting samples. Dry sterile dressing was brought applied and tape was applied and the patient was extubated and transferred to recovery in stable condition.
[2020-03-29] MEDS: ONDANSETRON 4 MG/2 ML VIAL IVP PRN (12:56)
[2020-03-29] MEDS ORDERED: KETOROLAC 15 MG/ML 1 ML VIAL IVP ONE (13:06)
--- NOTE | 2020-03-29 13:10 | XR ---
EXAMINATION TYPE: XR chest 1V portable DATE OF EXAM: 03/29/2020 Comparison: CT 03/29/2020 Clinical History: 69-year-old female post op left chest tube placement and bronchoscopy Findings: Left basilar chest tube. Staple line left upper lung. Patchy infiltrate left lower lung. Left upper l efe hydropneumothorax redemonstrated. The basilar component appears significantly improved. Surgical clips left axilla. Impression: Redemonstrated left upper lung hydropneumothorax, probably 30-40% by volume, similar to 03/29/2020. H owever, the basilar component appears improved/resolved after chest tube placement.
--- NOTE | 2020-03-29 13:22 | CONS ---
CONSULTATION PULMONARY/CRITICAL CARE CONSULTATION NOTE: DATE OF SERVICE: March 29, 2020 HISTORY OF PRESENT ILLNESS: This is a patient who apparently presented to the emergency room on March 28. The patient came in with complaints of shortness of breath, and palpitations. She is a 69- year-old female who was inpatient between the and March 17 at which time, the patient had a robotically assisted left upper lobectomy for squamous cell carcinoma. The patient does carry with her a diagnosis of both breast and lung cancer, as well as hypertension. She complains of fluttering heartbeat, palpitations, and shortness of breath. The patient had her left upper lobectomy done by Dr. Robles again on March 13. At that time, she saw my partner, Dr. Odell. She was discharged on the . She has been doing relatively well until this episode of shortness of breath and palpitations. She apparently does not have a prior history of atrial fibrillation. The patient was also discovered on chest x-ray to have a left-sided hydrothorax, as well as a large pneumothorax. Hence, Dr. Robles was consulted for possible chest tube placement. We were asked to see her because we saw her on her last admission and she does have underlying COPD. Currently, she is resting relatively comfortably. She is sitting up in a chair by the bed. She is afebrile. She does have atrial fibrillation. Heart rate about 120. She is only on 2 L and she is saturating 96%. CURRENT MEDICATIONS: Include Femara, Plavix, calcium with vitamin D3, magnesium, naproxen sodium, omega-3 fatty acids, zinc, and Tylenol. ALLERGIES: ASPIRIN, PENICILLIN, TETANUS AND DIPHTHERIA TOXOID, AND STEROIDS. MEDICAL HISTORY: Positive for COPD, hypertension, DJD, lung cancer, well differentiated squamous cell carcinoma of the lung, and history of breast cancer, status post mastectomy 2006. She also has a history of carotid artery disease and has undergone previous endarterectomy. SURGICAL HISTORY: Includes breast surgery, a robotically assisted left upper lobectomy, cholecystectomy, and hysterectomy. She has also had a lung biopsy, left mastectomy with lymph node dissection, left carotid endarterectomy, and the left upper lobectomy recently done. SOCIAL HISTORY: Positive for previous tobacco use. Alcohol and illicit drugs are denied. FAMILY HISTORY: Positive for mother with breast cancer which was metastatic. A father with a history of myocardial infarction, brother with a history of myocardial infarction, sister with lung cancer and hypertension, and a daughter with no major medical problems. REVIEW OF SYSTEMS: CONSTITUTIONAL weakness. NEUROLOGIC negative. HEENT negative. CARDIOVASCULAR: Palpitations, fluttering, rapid heartbeat. PULMONARY: Shortness of breath. GI negative. negative. RHEUMATOLOGIC negative. IMMUNOLOGIC negative. ENDOCRINOLOGIC negative. DERMATOLOGIC negative. PHYSICAL EXAMINATION: VITAL SIGNS: Current vital signs are reviewed. Temperature is 98.6, heart rate 123 and irregular, respiratory rate 20, blood pressure 131/79 mean 96 and saturations between 96% and 98% on 2 L. GENERAL: She appears in no acute distress. HEENT: Examination is grossly unremarkable. Nasal O2 noted. NECK: Supple full range of motion. No adenopathy, thyromegaly or neck vein distention. CARDIOVASCULAR: Examination reveals a regular rhythm and rate. She is in atrial fibrillation. Heart rate 120. S1, S2 normal. LUNGS: Reveal diminished breath sounds particularly on the left lung. A few scattered rhonchi. No wheezes. ABDOMEN: Soft. Bowel sounds are heard. EXTREMITIES are intact. No edema. SKIN: Without rash. NEUROLOGIC: Examination is nonfocal. LABS: Reviewed white count 17, hemoglobin 10.2, hematocrit 33.1, platelet count 876,000. Her D-dimer 3.48. Sodium 135, potassium 4.9, chloride 100, CO2 27, anion gap is normal. BUN and creatinine were normal. COVID testing was negative. Microbiology was negative. EKG shows evidence of atrial fibrillation. Chest CT showed no pulmonary embolism, noncalcified left lung nodules, large left-sided pneumothorax with an apical component, moderate to large left-sided pleural effusion, fatty liver, and nonspecific stranding about the perinephric spaces. Current medications are reviewed. The patient is currently on Tylenol, [place] with D, Cardizem drip, Coreg, clindamycin, Plavix, T[place], Femara, magnesium oxide, Narcan, Zofran, tramadol, and zinc. ASSESSMENT: 1. Left-sided hydropneumothorax. 2. New onset atrial fibrillation with RVR. 3. Recent robotically assisted left upper lobectomy with mediastinal lymph node dissection for well differentiated squamous cell carcinoma. This occurred on March 13. 4. Moderately severe chronic obstructive pulmonary disease with an FEV1 that is 72% of predicted. 5. Postoperative subcutaneous emphysema. 6. Remote history of breast cancer, status post mastectomy. 7. Carotid artery disease, status post left carotid endarterectomy. 8. Prior history of tobacco use. 9. History of degenerative joint disease. 10.Status post cataract surgery. PLAN: The patient will be seen by Dr. Robles. The plan is to place a left-sided chest tube. We will continue to follow. We will make sure the patient is on appropriate medications. From our standpoint, really only needs some updrafts. We will recommend deep breathing, coughing, clearing of secretions and use of incentive spirometer. No additional recommendations are made. The pathology on the recent robotically assisted left upper lobectomy was well differentiated squamous cell carcinoma. All the lymph nodes that were dissected were negative for malignancy. We will continue to follow. Prognosis is guarded. MMODL / IJN: [id number] /
[2020-03-29 13:39] LABS: Appearance,BF Bloody; Color,BF Red; Nucleated Cells, Body Fluid 11500 /uL; RBC, Body Fluid 126600 /uL
[2020-03-29] MEDS: KETOROLAC 15 MG/ML 1 ML VIAL IVP SCH ×3 (13:50→23:37)
[2020-03-29 14:00] LABS: Mononuclear WBC,Body Fluid 91 %; Polynuclear WBC,Body Fluid 5 %; Total Cells Counted,Body Fluid 100
[2020-03-29] MEDS: LEVOFLOXACIN 750MG-D5W PMX 750 MG in DEXTROSE/WATER 1 150ML.BAG IVPB SCH (15:23)
--- NOTE | 2020-03-29 15:53 | ECHOF ---
Referral Reason:lv function MEASUREMENTS -------- HEIGHT: 162.6 cm WEIGHT: 64.0 kg BP: 131/79 RVIDd: 2.7 cm (< 3.3) IVSd: 1.3 cm (0.6 - 1.1) LVIDd: 3.9 cm (3.9 - 5.3) LVPWd: 1.4 cm (0.6 - 1.1) IVSs: 1.9 cm LVIDs: 2.6 cm LVPWs: 1.7 cm LAESV Index (A-L): 34.18 ml/m Ao Diam: 2.9 cm (2.0 - 3.7) AV Cusp: 1.8 cm (1.5 - 2.6) LA Diam: 3.4 cm (2.7 - 3.8) MV EXCURSION: 14.991 mm (> 18.000) MV EF SLOPE: 76 mm/s (70 - 150) EPSS: 1.2 cm MV E Michael: 0.95 m/s MV DecT: 165 ms MV A Michael: 1.16 m/s MV E/A Ratio: 0.82 RAP: 20.00 mmHg RVSP: 46.19 mmHg FINDINGS -------- Sinus rhythm. This was a technically adequate study. The left ventricular size is normal. There is mild concentric left ventricular hypertrophy. Overa ll left ventricular systolic function is normal with, an EF between 55 - 60 %. The right ventricle is normal in size. LA is moderately dilated 34-39 ml/m2 The right atrial size is normal. Interatrial and interventricular septum intact. The aortic valve is trileaflet and appears structurally normal. There is no evidence of aortic regu rgitation. There is no evidence of aortic stenosis. [id number] mitral regurgitation is present. Moderate tricuspid regurgitation present. There is moderate pulmonary hypertension. The right elizabeth tricular systolic pressure, as measured by Doppler, is 46.19mmHg. There is no pulmonic regurgitation present. The aortic root size is normal. The inferior vena cava is dilated with poor inspiratory collapse which is consistent with estimated r ight atrial pressure of 20 mmHg. There is no pericardial effusion. CONCLUSIONS -------- 1. The left ventricular size is normal. 2. There is mild concentric left ventricular hypertrophy. 3. Overall left ventricular systolic function is normal with, an EF between 55 - 60 %. 4. LA is moderately dilated 34-39 ml/m2 5. [id number] mitral regurgitation is present. 6. Moderate tricuspid regurgitation present. 7. There is moderate pulmonary hypertension. 8. The right ventricular systolic pressure, as measured by Doppler, is 46.19mmHg. 9. The inferior vena cava is dilated with poor inspiratory collapse which is consistent with estimate d right atrial pressure of 20 mmHg. CENTERLESS GRINDER SET UP OPERATOR: Mirian Emerson RDCS
[2020-03-29] MEDS: IPRATROPIUM-ALBUTEROL 3 ML NEB INHALATION SCH ×2 (16:05→19:55)
[2020-03-29] MEDS: HEPARIN SODIUM,PORCINE 5,000 UNIT/ML 1 ML VIAL SQ SCH (17:52)
[2020-03-30] MEDS: DILTIAZEM 125 MG in SODIUM CHLORIDE 0.9% 100 ML IV SCH (00:32)
[2020-03-30] MEDS: HEPARIN SODIUM,PORCINE 5,000 UNIT/ML 1 ML VIAL SQ SCH ×4 (01:06→23:15)
[2020-03-30] MEDS ORDERED: VANCOMYCIN 1,000 MG in SODIUM CHLORIDE 0.9% 250 ML IVPB ONE (03:00)
[2020-03-30] MEDS: KETOROLAC 15 MG/ML 1 ML VIAL IVP SCH ×4 (05:56→23:15)
[2020-03-30] MEDS: IPRATROPIUM-ALBUTEROL 3 ML NEB INHALATION SCH ×3 (07:15→19:10)
[2020-03-30] MEDS ORDERED: MIDAZOLAM 2 MG/2 ML VIAL IVP ONE (07:57)
[2020-03-30] MEDS ORDERED: ONDANSETRON 4 MG/2 ML VIAL ONE (08:17)
[2020-03-30] MEDS ORDERED: METOPROLOL TARTRATE 5 MG/5 ML VIAL IVP ONE (08:17)
[2020-03-30] MEDS ORDERED: PROPOFOL 10 MG/ML 20 ML VIAL IV ONE (08:17)
[2020-03-30] MEDS ORDERED: LIDOCAINE 1% INJ 10MG/ML (20 ML MDV) ONE (08:17)
[2020-03-30] MEDS ORDERED: NEOSTIGMINE 1 MG/ML 10 ML VIAL ONE (08:17)
[2020-03-30] MEDS ORDERED: MIDAZOLAM 2 MG/2 ML VIAL ONE (08:17)
[2020-03-30] MEDS ORDERED: DEXAMETHASONE SOD PHOSPHATE 10 MG/ML 1 ML VIAL ONE (08:17)
[2020-03-30] MEDS ORDERED: fentaNYL (PF) 50 MCG/ML 2 ML AMP ONE (08:17)
[2020-03-30] MEDS ORDERED: ROCURONIUM 10 MG/ML (10 ML VIAL) IV ONE (08:17)
[2020-03-30] MEDS ORDERED: SUCCINYLCHOLINE CHLORIDE 100 MG/5 ML SYR IV ONE (08:17)
[2020-03-30] MEDS ORDERED: GLYCOPYRROLATE 0.2 MG/ML 2 ML VIAL ONE (08:17)
[2020-03-30] MEDS ORDERED: LACTATED RINGERS 1,000 ML IV ONE (08:23)
[2020-03-30] MEDS ORDERED: CLINDAMYCIN 150 MG/ML 4 ML VIAL IRRIGATION ONE (10:01)
--- NOTE | 2020-03-30 12:11 | XR ---
EXAMINATION TYPE: XR chest 1V portable DATE OF EXAM: 03/30/2020 Comparison: 03/29/2020 Clinical History: 69-year-old female Postoperative left thoracotomy Findings: Right IJ CVC tip in the right atrium. Heart upper limits of normal in size. Hyperinflation. Interval left-sided thoracotomy change with 2 chest tubes now present. There is a left suprahilar mass redemon strated with associated pneumothorax. Pleural air measuring 3.1 cm is noted above the mass and additi onal pleural air is noted along the inferior margin of the mass. Small left pleural effusion with adj acent opacity. Impression: 1. Interval left-sided thoracotomy with placement of 2 chest tubes. 2. Left suprahilar mass redemonstrated. Underlying prior staple line. 3. Pleural air/pneumothorax above the mass measures 3.1 cm. Additional pleural air is noted below the mass. 4. Small left effusion with adjacent atelectasis and/or consolidation.
--- NOTE | 2020-03-30 12:13 | P.OP ---
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 Anesthesia: GETA Surgeon: Abdi Robles Linecasting Machine Keyboard Operator #1: Sha Barragan Estimated Blood Loss (ml): 50 IV fluids (ml): 1,000 Urine output (ml): 300 Pathology: other (Pleural peel, cultures of left pleural fluid) Condition: stable Disposition: PACU Indications for Procedure: 69-year-old female presented 2 weeks postoperative from a left upper lobectomy with evidence of air-fluid levels in the chest, new onset atrial fibrillation and elevated white blood cell count. 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 A left chest tube was placed at that time and drained turbid fluid. Gram stain was positive for gram-negative rods. Thoracotomy and closure of the bronchial go pleural fistula with muscle flap augmentation was indicated. Informed consent was obtained. Operative Findings: Latissimus Dr. Rowan was an excellent muscle. There were fairly dense adhesions of the left upper lobe to the pleura. Once we got in the pleural space there was some turbid fluid present in the upper portion of the pleural space. The bronchopleural fistula was evident at the posterior portion of the bronchial stump. It was about 4 mm in diameter. Successful closure was obtained with 4-0 Vicryl suture. There was fibrinous exudate present in the visceral as well as parietal pleura in the left chest cavity and this was decorticated to the extent necessary. Description of Procedure: The patient was brought to the operating room, placed supine on the operating table, anesthetized and intubated with a double-lumen endotracheal tube. Tube was positioned with fiberoptic bronchoscopy. It was secured. The patient was turned in the right lateral decubitus position and the left chest sterilely prepped and draped. Previously placed chest tube was left in place and draped out of the field. Posterior lateral thoracotomy incision was performed. This was carried down through skin and subcutaneous tissue to the latissimus muscle. Flaps of skin and subcutaneous tissue were raised over latissimus muscle superiorly and inferiorly. Muscle was mobilized from the chest wall. The insertion of the latissimus muscle on the inferior ribs and posterior spine were taken down and the muscle was freed and left intact on its origin with its fiber blood supply left intact. It was wrapped in a wet sponge and towel. Chest was entered in the fourth interspace. Intercostals were undercut anteriorly and posteriorly to allow easy rib spreading. There was dense adhesion of the lung to the chest wall and we had to very carefully entered the pleural space superiorly. Once we did we were able to take the adhesions down with gentle finger dissection. The pleural space was explored with findings as noted above. Fibrinous exudate from the hilum was resected to the extent possible. Bronchopleural fistula was identified and 3 sutures of 4-0 Vicryl were placed across the bronchopleural fistula being careful not to injure the pulmonary artery. Once the sutures were placed they were tied with successful gross closure of the bronchopleural fistula. Positive pressure ventilation did still demonstrate a few bubbles from the fistula but this was felt to be adequate. We now performed intercostal nerve blocks using cryoablation at the second through sixth interspaces posteriorly. The lung was further decorticated and the chest copiously irrigated with antibiotic solution. We now entered the third interspace anteriorly and undercut this interspace anteriorly and posteriorly. This led to a large in this opening to easily bring the latissimus muscle through into the pleural space. The anterior inferior portion of the latissimus muscle was sutured down over the bronchial stump with multiple sutures of 4-0 Vicryl. The remainder of the latissimus muscle was draped over the superior portion of the lower lobe. A 18-Amharic Rob drain was placed percutaneously and coiled around the muscle flap in the chest cavity. Chest was again irrigated and checked for airleak small air leaks were noted from the long. The hilar air leak appeared to be somewhat better. The ribs were then reapproximated with #2 Vicryl sutures. Serratus anterior was tacked to the subcutaneous tissue with a running 0 Vicryl suture. Subcutaneous tissue was closed in 2 layers with 2-0 Vicryl area prior to closing the muscle layer we placed 218-Amharic Raffaele-Beauchamp drains in the chest wall at the level between the ribs and the muscle layer. These were brought out through small incisions and secured to the skin. They were connected to bulb suction. The previously placed Raffaele-Beauchamp from the pleural space was connected to a Pleur-evac. Skin was closed with running subcuticular closure and skin glue. Dry sterile dressings were applied. The patient was turned supine and extubated and transferred to recovery in stable condition.
--- NOTE | 2020-03-30 12:25 | P.PN ---
Subjective Progress Note Date: 03/30/20 Principal diagnosis: A. fib with RVR, severe dyspnea and shortness of breath, left sided pneumot 69-year-old female one of Dr. 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 Patient also bynum rvival of rest cancer post left mastectomy in 2010 post chemotherapy also she is known to have history of carotid stenosis post left carotid endarterectomy in 2018 previous history of tobacco use she quit in February this year continue to have moderate COPD with FEV1 of 72 percentile history of hypertension hyperlipidemia. Patient left the hospital on March 17 after surgery was seen pulmonary and cardiothoracic surgery on regular basis she returned to the emergency department shortly after midnight today because of worsening dyspnea and shortness of breath with significant tachycardia according to patient she become more symptomatic with rapid ventricular response on and off become more symptomatic causing worsening shortness of breath. Was seen and evaluated demurs department her white blood cell was 18.5 hemoglobin 10.5 hematocrit 32.9 d-dimer was 2.48 patient COVID 19 testing was negative she found to be in A. fib with RVR pulse 153 beats per minutes cardiology were called along with cardiothoracic patient chest x-ray showed pleural effusion and pneumothorax of the left side. She was started on Cardizem drip brought the pulse rate down no anticoagulation was started this point patient was on Plavix since her carotid surgery and no previous history of A. fib her pulse rate used to be well controlled on Coreg 6.25 mg twice a day in the past. Patient will be going to the OR by cardiothoracic and she will have more repair along with chest tube as well. 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 Patient will be back to the ICU after surgery Objective - Vital Signs Vital signs: Vital Signs Temp 97.2 F L 03/30/20 11:44 Pulse 74 03/30/20 12:00 Resp 18 03/30/20 12:00 BP 132/61 03/30/20 12:00 Pulse Ox 97 03/30/20 12:00 Intake & Output 03/29/20 03/30/20 03/30/20 18:59 06:59 18:59 Intake Total 300 492.333 700 Output Total 2 420 300 Balance 298 72.333 400 Weight 63.5 kg Intake: IV 300 700 Intake, IV Titration 372.333 Amount Diltiazem 125 mg In 122.333 Sodium Chloride 0.9% 100 ml @ 5 MG/HR 5 mls/hr IV .Q24H [facility] Rx#:[id number] Vancomycin 1,000 mg In 250 Sodium Chloride 0.9% 250 ml @ 125 mls/hr IVPB ONCE ONE Rx#:[id number] Oral 0 120 Output: Chest Tube Drainage 0 170 Chest Tube Left Lateral 0 170 Chest Drainage 0 Left Chest 0 Urine 250 200 Estimated Blood Loss 2 100 Other: Voiding Method Toilet # Voids 2 - Exam Review of Systems CONSTITUTIONAL: Well-developed mild respiratory distress EYES: No icterus sclerae, no conjunctivitis. EARS, NOSE, MOUTH, THROAT, and FACE: No sore throat, lymphadenopathy, carotid bruits or deformity. RESPIRATORY: Positive shortness of breath cough wheezes was significant left- sided chest pain CARDIOVASCULAR: Positive PND orthopnea palpitation. GASTROINTESTINAL: No Abd pain, Nausea or vomiting, no Diarrhea or constipation, No GI Bleed, no distention or masses. GENITOURINARY: Negative for Hematuria or UTI, no kidney stones. INTEGUMENT/BREAST: Negative for any muscular injury with mild osteoarthritis.. HEMATOLOGIC/LYMPHATIC: Negative for bleed or purpura. MUSCULOSKELTAL: Negative for Myalgia or arthralgia. NEURLOGICAL: No LOC, Sz or syncope, blurred vision dizziness or abnormality.. BEHAVIORAL/PSYCH: Negative. ENDOCRINE: Negative. Physical Exam Vitals: General Appearance: Alert, cooperative, mild distress with mild tachypnea Neck HEENT: Supple, no lymphadenopathy, no thyroid enlargement, no carotid bruits. Lungs: Decreased breath sounds in the left side positive for rhonchi with crackles in the upper part of the chest wall area with mild expiratory wheezes. Chest Wall: Decrease expansion with deep inspiration scar from her incision on the left side looks fine still have slight soreness pain and discomfort and tenderness in the left side of the rib cage compared to the right Heart: Irregular rate and rhythm, S1, S2 normal, no murmur, rub or gallop. Back: Symmetric, no curvature, ROM normal, no CVA tenderness. Abdomen: Soft, non-tender, bowel sounds active all four quadrants, no masses, no organomegaly. Extremities: Extremities normal, atraumatic, no cyanosis or edema. Pulses: 2+ and symmetric. Skin: Skin color, texture, tugor normal, no rashes or lesions. Neurologic: Alert oriented x3 cranial nerves II through XII intact, no motor deficit, no abnormal balance or gait. - Labs CBC & Chem 7: 03/29/20 07:09 03/29/20 07:09 Labs: Microbiology - Last 24 Hours (Table) 03/29/20 12:08 Gram Stain - Preliminary Thoracic Fluid Body Fluid Culture - Preliminary 03/29/20 12:08 Gram Stain - Preliminary Bronchial Washings - Left Bronchial Washings Culture - Preliminary 03/29/20 12:08 Anaerobic Culture - Preliminary Thoracic Fluid Assessment and Plan Assessment: 1 new onset of A. fib with RVR: Patient was started on Cardizem drip we'll consult cardiology echocardiogram will be done patient remain on Coreg if no respond will add amiodarone and anticoagulation will be held that she seen cardiothoracic to decide with severe with the pleural effusion and pneumothorax. 2 large left-sided pleural effusion and pneumothorax: The patient had empyema of the left chest along with broncho-pleural fistula post exploratory thoracotomy with decrease ablation of the intercostal nerve of L2 with 2 out of 6 3 squama cell carcinoma of the left upper lobe: Post robotic-assisted left upper lobectomy based on pathology and recommendation by cardiothoracic with decide wi th the patient need chemotherapy or not. 4 COPD: Patient will be continue on DuoNeb and possible Pulmicort continue O2 and titrate dose higher. 5 PAD: Post left carotid endarterectomy has been doing well since. 6 history of breast cancer post left-sided mastectomy and chemotherapy has been in remission. 7 history of hypertension: Was on Coreg has been doing well. 8 anxiety and panic attack has been on lorazepam. 9 possible Empyema: Was still be on antibiotic till culture from the pleural f luid is done. 10 mild anemia: Mostly iron deficiency continue iron supplement. 11 hypoglycemia: On diet control. 12 pain control: Patient had decrease ablation of the intercostal nerve L2 well 6 will continue patient on pain management as well Debility: We will advance PTOT in the next 48 hours.
[2020-03-30] MEDS ORDERED: METOCLOPRAMIDE 5 MG/ML 2 ML VIAL IVP PRN (12:41)
[2020-03-30] MEDS ORDERED: HYDROmorphone 0.5 MG/0.5 ML SYRINGE IVP ONE (12:49)
[2020-03-30] MEDS ORDERED: VANCOMYCIN IV PER PHARMACY 1 EACH MISC MISCELLANE PRN (13:24)
[2020-03-30] MEDS: carvediloL 6.25 MG TAB PO SCH ×2 (13:33→20:54)
[2020-03-30] MEDS: CALCIUM CARB-VIT D 500 MG-5 MCG TAB PO SCH (13:33)
[2020-03-30] MEDS: LETROZOLE 2.5 MG TAB PO SCH (13:34)
[2020-03-30] MEDS: ZINC SULFATE 220 MG CAP PO SCH (13:34)
[2020-03-30] MEDS: MAGNESIUM OXIDE 400 MG TAB PO SCH (13:34)
[2020-03-30 13:54] LABS: Glucose,Whole Blood 136 mg/dL (75-99)
[2020-03-30] MEDS: SODIUM CHLORIDE 0.9% 1,000 ML IV SCH (13:55)
[2020-03-30] MEDS: ACETAMINOPHEN IV (For NPO) 1,000 MG in EMPTY BAG 1 BAG IVPB SCH ×3 (13:56→23:15)
--- NOTE | 2020-03-30 14:00 | P.PN ---
Subjective Progress Note Date: 03/30/20 Principal diagnosis: Large left pneumothorax, new onset atrial fibrillation The patient is seen today 03/30/2020 in follow-up in the intensive care unit. She presented here on 03/28/2020 with shortness of breath and palpitations. She was found to be in atrial fibrillation with a rapid ventricular response and initiated on a Cardizem drip. She is currently in normal sinus rhythm. During her workup she was also found to have a large left-sided pneumothorax with left apical component in the component left lung base. She has a previous history of squamous cell carcinoma of the left upper lung and is status post robotic- assisted thorascopic left upper lobectomy and mediastinal lymph node dissection and repair of the left main bronchus on 03/13/2020. She was has a history of previous breast cancer with a left-sided mastectomy in [address]. [address] Robles performed a fiberoptic bronchoscopy and left-sided chest tube placement and she was also found to have a bronchopleural fistula in the left upper lobe bronchial stump. 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 Today he performed a left posterior lateral thoracotomy, mobilization of left isthmus muscle flap, exploratory thoracotomy. The fourth inner space, closure of bronchopleural fistula, decortication of the left pleural space and portion of the left lower lobe, cryoablation of the intercostal nerves L2 through L6, reinforcement of the bronchopleural fistula closure and modification of the left pleural space with latissimus dorsi flap. Presently, she is awakening from anesthesia. She is currently on 3 L/m per nasal cannula. Left-sided chest tube in place to Pleur-evac, new pigtail catheter placement to Pleur-evac and wall suction both with leak currently. 2 YAS[address] drains are in place. Dressing to the left chest is dry and intact. She is presently in sinus rhythm. Cardizem drip is off. IV fluids are 0.9 at KVO. She is on bronchodilators and Levaquin. Send spirometer at the bedside. Objective - Vital Signs Vital signs: Vital Signs Temp 97.5 F L 03/30/20 13:15 Pulse 76 03/30/20 13:17 Resp 15 03/30/20 13:15 BP 136/73 03/30/20 13:15 Pulse Ox 99 03/30/20 13:15 Intake & Output 03/29/20 03/30/20 03/30/20 18:59 06:59 18:59 Intake Total 300 492.333 713 Output Total 2 420 400 Balance 298 72.333 313 Weight 63.5 kg Intake: IV 300 703 .9 NS flush 3 Intake, IV Titration 372.333 10 Amount Diltiazem 125 mg In 122.333 Sodium Chloride 0.9% 100 ml @ 5 MG/HR 5 mls/hr IV .Q24H [facility] Rx#:[id number] Sodium Chloride 0.9% 1, 10 000 ml @ 40 mls/hr IV . Q24H [facility] Rx#:[id number] Vancomycin 1,000 mg In 250 Sodium Chloride 0.9% 250 ml @ 125 mls/hr IVPB ONCE ONE Rx#:[id number] Oral 0 120 Output: Chest Tube Drainage 0 170 30 Chest Tube Left 0 Chest Tube Left Lateral 0 170 30 Chest Drainage 0 20 Left 10 Left Chest 0 Left Lateral Chest 10 Urine 250 250 Estimated Blood Loss 2 100 Other: Voiding Method Toilet # Voids 2 ABP, PAP, CO, CI - Last Documented Arterial Blood Pressure 146/59 - Exam GENERAL EXAM: Alert, pleasant 69-year-old female patient, on 3 L nasal cannula, fairly comfortable in no apparent distress. HEAD: Normocephalic. EYES: Normal reaction of pupils, equal size. NOSE: Clear with pink turbinates. THROAT: No erythema or exudates. NECK: No masses, no JVD. CHEST: Left-sided chest tube in place, pigtail catheter in place, [address]. LUNGS: Equal air entry with lateral scattered rhonchi more so on the left lung CVS: S1 and S2 normal with no audible murmur, regular rhythm. ABDOMEN: No hepatosplenomegaly, normal bowel sounds, no guarding or rigidity. SPINE: No scoliosis or deformity SKIN: No rashes CENTRAL NERVOUS SYSTEM: No focal deficits, tone is normal in all 4 extremities. EXTREMITIES: There is no peripheral edema. No clubbing, no cyanosis. Peripheral pulses are intact. 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 Status post Left posterior lateral thoracotomy, mobilization of latissimus muscle flap, exploratory thoracotomy through the fourth interspace, closure of bronchopleural fistula, decortication of left pleural space and portion of the left lower lobe, cryoablation of intercostal nerves L2 through L6, reinforcement of the bronchopleural fistula closure and modification in the left pleural space with the latissimus dorsi flap. Post operative day #0 2 Bronchopleural fistula, left upper lobe apical stump status post fiberoptic bronchoscopy, left chest tube placement. Postoperative day #1 3 Squamous cell carcinoma of the left lung, status post robotically assisted left upper lobectomy with mediastinal lymph node dissection on 03/13/2020. 4 New-onset atrial fibrillation requiring Cardizem drip, currently in sinus rhythm 5 Moderate to severe chronic obstructive pulmonary disease with FEV1 value 72% of predicted 6 History of breast cancer status post left mastectomy 7 Carotid artery disease status post left carotid endarterectomy 8 History of chronic tobacco dependence 9 History of degenerative joint disease Plan: The patient was seen and evaluated by Dr. Renteria Currently on 3 L nasal cannula in the ICU Postop chest x-ray reviewed 2 left-sided chest tubes in place, positive leak, the Pleur-evac and wall suction Continue Levaquin and bronchodilator Encouraged increased use of the incentive spirometer and cough and deep breathing exercises Follow-up chest x-ray and labs in the a.m. We will continue to follow and make further recommendations based on her clinical status I, the cosigning physician, performed a history & physical examination of the patient. Lungs sounds with bilateral scattered rhonchi left greater than right. Maintaining good O2 saturations in the 90s on 3 L/m per nasal cannula. I discussed the assessment and plan of care with my nurse practitioner, Arminda Owen. I attest to the above note as dictated by her. Time with Patient: Greater than 30
[2020-03-30 14:05] LABS: Basophils % (A) 0 %; Eosinophils % (A) 0 %; HCT 32.2 % (34.0-46.0); Hypochromasia Slight; Lymphocytes # (A) 0.5 k/uL (1.0-4.8); Lymphocytes % (A) 2 %; MCH 26.9 pg (25.0-35.0); MCHC 31.2 g/dL (31.0-37.0); Monocytes # (A) 0.5 k/uL (0-1.0); Monocytes % (A) 2 %; Neutrophils # (A) 28.2 k/uL (1.3-7.7); Neutrophils % (A) 96 %; Platelet Count 790 k/uL (150-450); RBC 3.74 m/uL (3.80-5.40); RDW 14.5 % (11.5-15.5); WBC 29.3 k/uL (3.8-10.6)
[2020-03-30 14:18] LABS: ALT 31 U/L (4-34); AST 28 U/L (14-36); African American GFR (CKD) >90 (>60 ml/min/1.73 sqM); Albumin 2.7 g/dL (3.5-5.0); Alkaline Phosphatase 144 U/L (38-126); Anion Gap 7 mmol/L; Blood Urea Nitrogen 9 mg/dL (7-17); Calcium 8.7 mg/dL (8.4-10.2); Carbon Dioxide 25 mmol/L (22-30); Chloride 100 mmol/L (98-107); Glucose 138 mg/dL (74-99); Non-African American GFR(CKD) >90 (>60 ml/min/1.73 sqM); Potassium 4.7 mmol/L (3.5-5.1); Sodium 132 mmol/L (137-145); Total Bilirubin 0.5 mg/dL (0.2-1.3); Total Protein 5.6 g/dL (6.3-8.2)
[2020-03-30] MEDS: LEVOFLOXACIN 750MG-D5W PMX 750 MG in DEXTROSE/WATER 1 150ML.BAG IVPB SCH (14:39)
[2020-03-30] MEDS: VANCOMYCIN 1,250 MG in SODIUM CHLORIDE 0.9% 250 ML IVPB SCH (14:55)
[2020-03-30] MEDS: AZTREONAM 2 GM in SODIUM CHLORIDE 0.9% 100 ML IVPB SCH ×2 (15:14→23:16)
[2020-03-30] MEDS ORDERED: carvediloL 6.25 MG TAB PO STA (15:22)
--- NOTE | 2020-03-30 22:57 | P.CONS ---
History of Present Illness - Reason for Consult Consult date: 03/30/20 Antibiotic management/pneumonia Requesting physician: Sha Barragan - Chief Complaint Shortness of breath and cough x few days - History of Present Illness Patient is a 69-year-old female in this patient with recent diagnosis of squamous cell carcinoma left upper lobe and this patient was status post robotic assisted thorascopic left upper lobectomy with mediastinal lymph node dissection and repair of the left main bronchus on 03/13/2020 patient presenting to [facility] ER on March 28, 2020 with increasing shortness of breath and a fluttering feeling in her chest patient also complaining of increasing cough and pain to the left side of the chest incision site more of a dull aching pain 5 suture no radiation patient cough has been productive of thick aguirre-colored sputum with the symptoms the patient has been evaluated on arrival to the ER patient has been afebrile and no fever has been recorded during this hospital admission and the patient did have a white count of 18.5 that is up to 29.3 thousand today that has prompted this infectious disease consultation patient did have a CT angiogram of the chest on admission with evidence of 4 left-sided pneumothorax with left apical component and moderate to large left effusion which is loculated at the left apex patient was evaluated by CT surgery and was taken to the OR yesterday and this patient status post fiberoptic bronchoscopy and left chest tube placement culture has been obtained and the patient was treated with vancomycin and Levaquin because of her antibiotic allergies infectious was consulted for further management of antibiotic therapy Review of Systems Positive point has been mentioned in the HPI rest of the systems are negative Past Medical History Past Medical History: Cancer, COPD, Hypertension, Osteoarthritis (OA) Additional Past Medical History / Comment(s): COPD, squamous cell carcinoma of the lung, per his history of breast cancer 2006 post mastectomy. The patient did not require any chemotherapy following that. She also has carotid artery disease and she has undergone previous endarterectomy. Left upper lobectomy 03/2020 History of Any Multi-Drug Resistant Organisms: None Reported Past Surgical History: Breast Surgery, Cholecystectomy, Hysterectomy Additional Past Surgical History / Comment(s): lung bx, cataract surgery,left mastectomy with lymph node dissection,lt carotid endartarectomy, left upper lobectomy 03/23 Past Anesthesia/Blood Transfusion Reactions: No Reported Reaction Additional Past Anesthesia/Blood Transfusion Reaction / Comm: states doesn't need much anesthesia to be put under Past Psychological History: Anxiety Additional Psychological History / Comment(s): not on medications for it Smoking Status: Former smoker Past Alcohol Use History: None Reported Additional Past Alcohol Use History / Comment(s): quit smoking Feb 2020, smoker one and a half packs of cigarettes per day and started when she was a teenager. Shows a has history of alcohol intake but quit many years ago. Past Drug Use History: None Reported - Past Family History Mother Family Medical History: Cancer Additional Family Medical History / Comment(s): Mother at age 76 from breast cancer with metastatic disease to bone and brain. Father Family Medical History: Myocardial Infarction (CA) Additional Family Medical History / Comment(s): Father at age 73 from myocardial infarction. Brother(s) Family Medical History: Myocardial Infarction (CA) Additional Family Medical History / Comment(s): She had 3 brothers and one of them with CA still alive other one is healthy and third one committed suicide. Sister(s) Family Medical History: Cancer, Hypertension Additional Family Medical History / Comment(s): Patient has 3 sisters with hypertension. lung cancer Daughter(s) Family Medical History: No Reported History Additional Family Medical History / Comment(s): Patient has one daughter with no major medical problems. Medications and Allergies Home Medications Medication Instructions Recorded Confirmed Type Letrozole [Femara] 2.5 mg PO DAILY 07/30/17 03/29/20 History Clopidogrel [Plavix] 75 mg PO DAILY 01/30/19 03/29/20 History Albuterol Nebulized [Ventolin 2.5 mg INHALATION RT-QID PRN 03/29/20 03/29/20 History Nebulized] HYDROcodone/APAP 5-325MG [Zalma 1 tab PO Q6H PRN 03/29/20 03/29/20 History 5-325] LORazepam [Ativan] 0.5 mg PO HS PRN 03/29/20 03/29/20 History carvediloL [Coreg] 6.25 mg PO BID 03/29/20 03/29/20 History traMADol HCL 50 mg PO Q6H PRN 03/29/20 03/29/20 History Allergies Allergy/AdvReac Type Severity Reaction Status Date / Time aspirin Allergy rectal Verified 03/29/20 09:06 bleeding Penicillins Allergy Anaphylaxis Verified 03/29/20 09:06 tetanus and diphtheria Allergy severe Verified 03/29/20 09:06 toxoids swelling steroids AdvReac severe Uncoded 03/28/20 23:27 muscle pain Physical Exam Vitals: Vital Signs Temp Pulse Pulse Resp BP BP BP 03/30/20 22:00 76 14 03/30/20 21:00 80 16 03/30/20 20:00 98.6 F 78 18 03/30/20 19:18 75 03/30/20 19:11 74 03/30/20 19:00 77 17 03/30/20 18:00 77 17 03/30/20 17:00 84 16 03/30/20 16:00 97.5 F L 81 17 03/30/20 15:00 80 18 03/30/20 14:30 73 16 03/30/20 14:00 76 15 03/30/20 13:45 75 18 136/73 03/30/20 13:30 81 15 03/30/20 13:17 76 03/30/20 13:15 97.5 F L 75 15 136/73 03/30/20 13:10 76 03/30/20 13:07 80 19 03/30/20 13:00 74 18 124/59 03/30/20 12:45 74 18 123/64 03/30/20 12:30 74 18 125/60 116/64 03/30/20 12:15 72 18 129/62 124/36 03/30/20 12:00 74 18 132/61 121/24 03/30/20 11:44 97.2 F L 73 18 132/61 113/33 03/30/20 07:28 96 03/30/20 07:19 92 03/30/20 03:31 97.9 F 86 19 138/76 03/30/20 02:00 89 19 03/29/20 23:59 97.5 F L 89 19 138/73 Pulse Ox 03/30/20 22:00 97 03/30/20 21:00 95 03/30/20 20:00 96 03/30/20 19:18 03/30/20 19:11 03/30/20 19:00 96 03/30/20 18:00 96 03/30/20 17:00 96 03/30/20 16:00 96 03/30/20 15:00 96 12/27/20 14:30 96 03/30/20 14:00 94 L 03/30/20 13:45 94 L 03/30/20 13:30 94 L 03/30/20 13:17 03/30/20 13:15 99 03/30/20 13:10 03/30/20 13:07 03/30/20 13:00 97 03/30/20 12:45 97 03/30/20 12:30 97 03/30/20 12:15 97 03/30/20 12:00 97 03/30/20 11:44 97 03/30/20 07:28 03/30/20 07:19 03/30/20 03:31 94 L 03/30/20 02:00 03/29/20 23:59 96 Intake and Output 03/30/20 03/30/20 03/30/20 06:59 14:59 22:59 Intake Total 553.776 1609 601 Output Total 250 485 630 Balance 122.333 801 -29 Intake: IV 706 101 .9 NS flush 6 21 Sodium Chloride 0.9% 1, 80 000 ml @ 40 mls/hr IV . Q24H [facility] Rx#:[id number] Intake, IV Titration 372.333 580 400 Amount ACETAMINOPHEN IV (For NPO 100 100 ) 1,000 mg In Empty Bag 1 bag @ 400 mls/hr IVPB Q6HR [facility] Rx#:[id number] Aztreonam 2 gm In Sodium 100 Chloride 0.9% 100 ml @ 33 .3 mls/hr IVPB Q8HR [facility] Rx#:[id number] Diltiazem 125 mg In 122.333 Sodium Chloride 0.9% 100 ml @ 5 MG/HR 5 mls/hr IV .Q24H [facility] Rx#:[id number] Levofloxacin 750Mg-D5w 150 Pmx 750 mg In Dextrose/ Water 1 150ml.bag @ 100 mls/hr IVPB Q24H [facility] Rx#: [id number] Sodium Chloride 0.9% 1, 80 200 000 ml @ 40 mls/hr IV . Q24H [facility] Rx#:[id number] Vancomycin 1,000 mg In 250 Sodium Chloride 0.9% 250 ml @ 125 mls/hr IVPB ONCE ONE Rx#:[id number] Vancomycin 1,250 mg In 250 Sodium Chloride 0.9% 250 ml @ 125 mls/hr IVPB Q12H [facility] Rx#:[id number] Oral 100 Output: Chest Tube Drainage 100 80 180 Chest Tube Left 0 15 Chest Tube Left Lateral 100 80 165 Chest Drainage 20 35 Left 10 10 Left Lateral Chest 10 25 Urine 150 285 415 Estimated Blood Loss 100 Other: Voiding Method Toilet Indwelling Catheter Indwelling Catheter Weight 63.5 kg ABP, PAP, CO, CI - Last 8 Hours Arterial Blood Pressure 98/48 Arterial Blood Pressure 112/54 Arterial Blood Pressure 122/56 Arterial Blood Pressure 116/54 Arterial Blood Pressure 130/60 Arterial Blood Pressure 116/52 Arterial Blood Pressure 128/57 Arterial Blood Pressure 137/61 GENERAL DESCRIPTION: Elderly female lying in bed, no distress. No tachypnea or accessory muscle of respiration use. HEENT: Shows Pallor , no scleral icterus. Oral mucous membrane is dry. No pharyngeal erythema or thrush NECK: Trachea central, no thyromegaly. LUNGS: Unlabored breathing. Decreased breath sound the bases. No wheeze or crackle. HEART: S1, S2, regular rate and rhythm. No loud murmur ABDOMEN: Soft, no tenderness , guarding or rigidity, no organomegaly EXTREMITIES: No edema of feet. SKIN: No rash, no masses palpable. NEUROLOGICAL: The patient is awake, alert, oriented x3, mood and affect normal. Results CBC & Chem 7: 03/30/20 13:45 03/30/20 13:45 Labs: Abnormal Lab Results - Last 24 Hours (Table) 03/30/20 03/30/20 03/30/20 Range/Units 13:45 13:45 13:52 WBC 29.3 H (3.8-10.6) k/uL RBC 3.74 L (3.80-5.40) m/uL Hgb 10.0 L (11.4-16.0) gm/dL Hct 32.2 L (34.0-46.0) % Plt Count 790 H (150-450) k/uL Neutrophils # 28.2 H (1.3-7.7) k/uL Lymphocytes # 0.5 L (1.0-4.8) k/uL Sodium 132 L (137-145) mmol/L Creatinine 0.46 L (0.52-1.04) mg/dL Glucose 138 H (74-99) mg/dL POC Glucose (mg/dL) 136 H (75-99) mg/dL Alkaline Phosphatase 144 H (38-126) U/L Total Protein 5.6 L (6.3-8.2) g/dL Albumin 2.7 L (3.5-5.0) g/dL Microbiology - Last 24 Hours (Table) 03/30/20 09:45 Gram Stain - Preliminary Other - Other Wound Culture - Preliminary 03/30/20 09:45 Anaerobic Culture - Preliminary Other - Other 03/29/20 12:08 Gram Stain - Preliminary Thoracic Fluid Body Fluid Culture - Preliminary 03/29/20 12:08 Gram Stain - Preliminary Bronchial Washings - Left Bronchial Washings Culture - Preliminary Assessment and Plan Assessment: 1-patient is a 69-year-old female was status post recent left upper lobectomy for squamous cell carcinoma with evidence of a left-sided loculated pleural effusion in this patient with status post bronchoscopy and left chest tube placement with initial culture showing gram-negative bacilli with concern for possible Pseudomonas or related gram-negative kristen 2-penicillin ALLERGY with anaphylaxis that will limit the number of antibiotic safety use (1) Empyema Current Visit: Yes Status: Acute Code(s): J86.9 - PYOTHORAX WITHOUT FISTULA SNOMED Code(s): 423001007 (2) Penicillin allergy Current Visit: Yes Status: Acute Code(s): Z88.0 - ALLERGY STATUS TO PENICILLIN SNOMED Code(s): 19086153 Plan: 1- we will start the patient on Azactam 2 g every 8 hours 2-if no gram-positive vancomycin be discontinued 3-patient will likely need PICC for outpatient IV antibiotic therapy We will follow on clinical condition and cultures to further adjust medication if needed Thank you for this consultation will follow this patient with you Time with Patient: Greater than 30
[2020-03-31] MEDS: VANCOMYCIN 1,250 MG in SODIUM CHLORIDE 0.9% 250 ML IVPB SCH ×2 (03:44→14:53)
[2020-03-31 04:01] LABS: Basophils % (A) 0 %; Eosinophils # (A) 0.1 k/uL (0-0.7); Eosinophils % (A) 0 %; HCT 30.3 % (34.0-46.0); HGB 9.6 gm/dL (11.4-16.0); Lymphocytes % (A) 4 %; MCH 26.7 pg (25.0-35.0); MCHC 31.6 g/dL (31.0-37.0); MCV 84.3 fL (80.0-100.0); Monocytes # (A) 0.9 k/uL (0-1.0); Monocytes % (A) 3 %; Neutrophils # (A) 24.5 k/uL (1.3-7.7); Neutrophils % (A) 92 %; Platelet Count 813 k/uL (150-450); RBC 3.59 m/uL (3.80-5.40); RDW 14.4 % (11.5-15.5); WBC 26.7 k/uL (3.8-10.6)
[2020-03-31 04:14] LABS: ALT 24 U/L (4-34); AST 24 U/L (14-36); African American GFR (CKD) >90 (>60 ml/min/1.73 sqM); Albumin 2.4 g/dL (3.5-5.0); Alkaline Phosphatase 123 U/L (38-126); Anion Gap 4 mmol/L; Blood Urea Nitrogen 12 mg/dL (7-17); Calcium 8.8 mg/dL (8.4-10.2); Carbon Dioxide 25 mmol/L (22-30); Chloride 100 mmol/L (98-107); Glucose 121 mg/dL (74-99); Non-African American GFR(CKD) >90 (>60 ml/min/1.73 sqM); Potassium 4.8 mmol/L (3.5-5.1); Sodium 129 mmol/L (137-145); Total Bilirubin 0.4 mg/dL (0.2-1.3); Total Protein 5.1 g/dL (6.3-8.2)
[2020-03-31] MEDS: ONDANSETRON 4 MG/2 ML VIAL IVP PRN ×2 (04:41→14:53)
[2020-03-31] MEDS: ACETAMINOPHEN IV (For NPO) 1,000 MG in EMPTY BAG 1 BAG IVPB SCH (05:57)
[2020-03-31] MEDS: KETOROLAC 15 MG/ML 1 ML VIAL IVP SCH ×4 (05:57→23:33)
--- NOTE | 2020-03-31 06:32 | XR ---
EXAMINATION TYPE: XR chest 1V portable DATE OF EXAM: 03/31/2020 CLINICAL HISTORY: Difficulty breathing progress study. Postopen thoracotomy for left lung mass. TECHNIQUE: Single AP portable upright view of the chest is obtained. COMPARISON: Chest x-ray from one day earlier and older studies. CT chest January 29, 2020 FINDINGS: Stable right internal jugular central venous catheter. There are 3 left-sided chest tubes redemonstrated. Persistent small to moderate sized left apical pleural air collection. Adjacent left upper to midlung atelectasis and/or less likely consolidation extending into the periphery of the lef t lower lung. Small to moderate left basilar pleural fluid collection with adjacent compressive atele ctasis. Sacral mild underlying emphysematous change. Right lung remains clear. Cardiac silhouette siz e stable and upper limits of normal. Left-sided volume loss redemonstrated. Osseous structures are in tact. IMPRESSION: Postsurgical changes left lung redemonstrated. Stable small to moderate size basilar pleu ral fluid collection. Stable small to moderate sized left apical air collection. Left lung atelectasi s and/or consolidation with left-sided volume loss. Right lung remains clear. No significant change f rom most recent x-ray.
[2020-03-31] MEDS: IPRATROPIUM-ALBUTEROL 3 ML NEB INHALATION SCH ×3 (06:56→19:36)
--- NOTE | 2020-03-31 07:11 | P.PN ---
Subjective Progress Note Date: 03/31/20 On 03/31/2020 the patient is being seen for a follow-up. 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 The patient was taken to the operating room approximately 2 weeks ago and the patient underwent a robotic-assisted left upper lobe resection. Postop, the patient was discharged home to be readmitted back to the hospital rule out empyema and air-fluid levels in the left chest along with a new onset atrial fibrillation and elevated white cell count. 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 A lesser the chest tube was placed at a time and drained turbid fluid. Gram stain was positive for gram-negative rods. Subsequently, the patient was taken back to the operating room and the patient underwent a thoracotomy and closure of a bronco pleural fistula with a muscle flap. The patient underwent a left posterior lateral thoracotomy, mobilization of the latissimus muscle flap, exploratory thoracotomy through the fourth interc ostal space, closure of the bronchopleural fistula and decortication of the left pleural space and portion of the left lower lobe and cryo-ablation of the intercostal nerves II through through L6 was done and reinforcement of the fistula was done and modification of the left pleural space with latissimus dorsi flap. The patient intraoperatively was found to have an empyema of the left chest as mentioned. Postop, the patient was extubated and the patient was brought back to the intensive care unit for further monitoring. She was placed on oxygen at 3 L about 2 by nasal cannula. There was a left-sided chest tube in place with a Pleur-evac and there were also 2 YASMEEN drains within the pleural space. The patient was being covered with broad-spectrum antibiotics including a combination of Levaquin, aztreonam and vancomycin pending further cultures from the pleural space. The patient was on tramadol 50 mg every 6 hours when necessary basis for pain control. The patient is also on [employer] 53 25 one tablet every 4-6 hours on a when necessary basis for pain control. The patient recovered from the atrial fibrillation and the patient is currently in sinus rhythm. Cardizem drip has been discontinued and the patient was placed on Coreg 6.25 mg by mouth twice a day. She is on heparin subcu for DVT prophylaxis. IV fluids running at 40 mL an hour of normal saline. Chest x-ray revealed a pleural air fluid levels/pneumothorax and the left upper chest area measuring 2.1 cm in size. A small left-sided pleural effusion/consolidation of the left lung base. There were 2 drains within the pleural space in addition to surgical changes are thoracotomy. The patient has a right IJ triple-lumen catheter in place. Liver output, the chest tube has put out approximately 20 mL over the past 24 hours and there is no evidence of any air leak. As for the YASMEEN drains,one in the pleural space and drained approximately 450 over the past 24 hours. Whereas the other YASMEEN drains are present in her lap and drained 60 mL and 20 mL over the past 12 hours. She is awake and alert. She is using incentive spirometer. She is afebrile. Hemodynamically stable. She is on no pressors. IV fluids are running at the rate of 40 mL an hour. She is tolerating her diet. Objective - Vital Signs Vital signs: Vital Signs Temp 98.6 F 03/31/20 04:00 Pulse 84 03/31/20 07:04 Resp 27 H 03/31/20 06:00 BP 136/73 03/30/20 13:45 Pulse Ox 94 L 03/31/20 06:00 Intake & Output 03/30/20 03/31/20 03/31/20 18:59 06:59 18:59 Intake Total 1658 1126 Output Total 865 814 Balance 793 312 Weight 64.8 kg Intake: IV 718 986 .9 NS flush 18 36 ACETAMINOPHEN IV (For NPO 200 ) 1,000 mg In Empty Bag 1 bag @ 400 mls/hr IVPB Q6HR [facility] Rx#:[id number] Aztreonam 2 gm In Sodium 100 Chloride 0.9% 100 ml @ 33 .3 mls/hr IVPB Q8HR [facility] Rx#:[id number] Sodium Chloride 0.9% 1, 400 000 ml @ 40 mls/hr IV . Q24H [facility] Rx#:[id number] Vancomycin 1,250 mg In 250 Sodium Chloride 0.9% 250 ml @ 125 mls/hr IVPB Q12H [facility] Rx#:[id number] Intake, IV Titration 840 140 Amount ACETAMINOPHEN IV (For NPO 100 100 ) 1,000 mg In Empty Bag 1 bag @ 400 mls/hr IVPB Q6HR [facility] Rx#:[id number] Aztreonam 2 gm In Sodium 100 Chloride 0.9% 100 ml @ 33 .3 mls/hr IVPB Q8HR [facility] Rx#:[id number] Levofloxacin 750Mg-D5w 150 Pmx 750 mg In Dextrose/ Water 1 150ml.bag @ 100 mls/hr IVPB Q24H [facility] Rx#: [id number] Sodium Chloride 0.9% 1, 240 40 000 ml @ 40 mls/hr IV . Q24H [facility] Rx#:[id number] Vancomycin 1,250 mg In 250 Sodium Chloride 0.9% 250 ml @ 125 mls/hr IVPB Q12H [facility] Rx#:[id number] Oral 100 Output: Chest Tube Drainage 180 164 Chest Tube Left 5 14 Chest Tube Left Lateral 175 150 Chest Drainage 55 Left 20 Left Lateral Chest 35 Urine 530 650 Estimated Blood Loss 100 Other: Voiding Method Indwelling Catheter Indwelling Catheter ABP, PAP, CO, CI - Last Documented Arterial Blood Pressure 146/74 - Exam GENERAL EXAM: Alert, pleasant 69-year-old female patient, on 3 L nasal cannula, fairly comfortable in no apparent distress. HEAD: Normocephalic. EYES: Normal reaction of pupils, equal size. NOSE: Clear with pink turbinates. THROAT: No erythema or exudates. NECK: No masses, no JVD. CHEST: Left-sided chest tube in place, pigtail catheter in place, [address] LUNGS: Diminished breath on the left compared to the right. The left side of the chest is sore to palpation. CVS: S1 and S2 normal with no audible murmur, regular rhythm. ABDOMEN: No hepatosplenomegaly, normal bowel sounds, no guarding or rigidity. SPINE: No scoliosis or deformity SKIN: No rashes CENTRAL NERVOUS SYSTEM: No focal deficits, tone is normal in all 4 extremities. EXTREMITIES: There is no peripheral edema. No clubbing, no cyanosis. Peripheral pulses are intact. - Labs CBC & Chem 7: 03/31/20 03:50 03/31/20 03:50 Labs: Abnormal Lab Results - Last 24 Hours (Table) 03/30/20 03/30/20 03/30/20 Range/Units 13:45 13:45 13:52 WBC 29.3 H (3.8-10.6) k/uL RBC 3.74 L (3.80-5.40) m/uL Hgb 10.0 L (11.4-16.0) gm/dL Hct 32.2 L (34.0-46.0) % Plt Count 790 H (150-450) k/uL Neutrophils # 28.2 H (1.3-7.7) k/uL Lymphocytes # 0.5 L (1.0-4.8) k/uL Sodium 132 L (137-145) mmol/L Creatinine 0.46 L (0.52-1.04) mg/dL Glucose 138 H (74-99) mg/dL POC Glucose (mg/dL) 136 H (75-99) mg/dL Alkaline Phosphatase 144 H (38-126) U/L Total Protein 5.6 L (6.3-8.2) g/dL Albumin 2.7 L (3.5-5.0) g/dL 03/31/20 03/31/20 Range/Units 03:50 03:50 WBC 26.7 H (3.8-10.6) k/uL RBC 3.59 L (3.80-5.40) m/uL Hgb 9.6 L (11.4-16.0) gm/dL Hct 30.3 L (34.0-46.0) % Plt Count 813 H (150-450) k/uL Neutrophils # 24.5 H (1.3-7.7) k/uL Lymphocytes # (1.0-4.8) k/uL Sodium 129 L (137-145) mmol/L Creatinine 0.48 L (0.52-1.04) mg/dL Glucose 121 H (74-99) mg/dL POC Glucose (mg/dL) (75-99) mg/dL Alkaline Phosphatase (38-126) U/L Total Protein 5.1 L (6.3-8.2) g/dL Albumin 2.4 L (3.5-5.0) g/dL Microbiology - Last 24 Hours (Table) 03/30/20 09:45 Gram Stain - Preliminary Other - Other Wound Culture - Preliminary 03/30/20 09:45 Anaerobic Culture - Preliminary Other - Other 03/29/20 12:08 Gram Stain - Preliminary Thoracic Fluid Body Fluid Culture - Preliminary Assessment and Plan Plan: 1 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 Status post Left posterior lateral thoracotomy, mobilization of latissimus muscle flap, exploratory thoracotomy through the fourth interspace, closure of bronchopleural fistula, decortication of left pleural space and portion of the left lower lobe, cryoablation of intercostal nerves L2 through L6, reinforcement of the bronchopleural fistula closure and modification in the left pleural space with the latissimus dorsi flap. Post operative day #1. The patient is growing gram-negative bacteria in the empyema fluid and the patient is currently on a combination of Levaquin, empyema and vancomycin. Further cultures and sensitivities are pending. Chest x-ray shows a residual left apical pneumothorax in addition to left perihilar consolidation and air fluid levels. The patient has chest tube in addition to the drains in addition to a pigtail catheter in the left pleural space. 2 Bronchopleural fistula, left upper lobe apical stump status post fiberoptic bronchoscopy, left chest tube placement. Postoperative day #2. 3 Squamous cell carcinoma of the left lung, status post robotically assisted left upper lobectomy with mediastinal lymph node dissection on 03/13/2020. Postoperatively, the patient had a T2b, N0, M0 disease 4 New-onset atrial fibrillation requiring Cardizem drip, currently in sinus rhythm 5 Moderate to severe chronic obstructive pulmonary disease with FEV1 value 72% of predicted 6 History of breast cancer status post left mastectomy 7 Carotid artery disease status post left carotid endarterectomy 8 History of chronic tobacco dependence 9 History of degenerative joint disease 10 leukocytosis secondary to above. Plan: COntinue O2 @ 3 L nasal cannula in the ICU Postop chest x-ray reviewed 2 left-sided chest tubes in place, positive leak, the Pleur-evac and wall suction Continue Levaquin /Aztreonam and Vanco for antibiotic coverage and bronchodilator can consider the addition of anaerobic coverage and this will be discussed with infectious disease. Encouraged increased use of the incentive spirometer and cough and deep breathin g exercises We will continue to follow and make further recommendations based on her clinical status
[2020-03-31] MEDS: guaiFENesin 600 MG TABLET.ER PO SCH ×2 (08:39→20:04)
[2020-03-31] MEDS: AZTREONAM 2 GM in SODIUM CHLORIDE 0.9% 100 ML IVPB SCH ×3 (08:39→23:33)
[2020-03-31] MEDS: MAGNESIUM OXIDE 400 MG TAB PO SCH (08:40)
[2020-03-31] MEDS: CLOPIDOGREL 75 MG TAB PO SCH (08:40)
[2020-03-31] MEDS: HEPARIN SODIUM,PORCINE 5,000 UNIT/ML 1 ML VIAL SQ SCH ×3 (08:40→23:33)
[2020-03-31] MEDS: carvediloL 6.25 MG TAB PO SCH ×2 (08:40→20:04)
[2020-03-31] MEDS: CALCIUM CARB-VIT D 500 MG-5 MCG TAB PO SCH (08:40)
[2020-03-31] MEDS: ZINC SULFATE 220 MG CAP PO SCH (08:40)
[2020-03-31] MEDS: LETROZOLE 2.5 MG TAB PO SCH (08:41)
--- NOTE | 2020-03-31 09:57 | P.PN ---
Subjective 69-year-old female one of Dr. 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 Patient also survival of rest cancer post left mastectomy in 2010 post chemotherapy also she is known to have history of carotid stenosis post left carotid endarterectomy in 2018 previous history of tobacco use she quit in February this year continue to have moderate COPD with FEV1 of 72 percentile history of hypertension hyperlipidemia. Patient left the hospital on March 17 after surgery was seen pulmonary and cardiothoracic surgery on regular basis she returned to the [facility] department shortly after midnight today because of worsening dyspnea and shortness of breath with significant tachycardia according to patient she become more symptomatic with rapid ventricular response on and off become more symptomatic causing worsening shortness of breath. Was seen and evaluated demurs department her white blood cell was 18.5 hemoglobin 10.5 hematocrit 32.9 d-dimer was 2.48 patient COVID 19 testing was negative she found to be in A. fib with RVR pulse 153 beats per minutes cardiology were called along with cardiothoracic patient chest x-ray showed pleural effusion and pneumothorax of the left side. She was started on Cardizem drip brought the pulse rate down no anticoagulation was started this point patient was on Plavix since her carotid surgery and no previous history of A. fib her pulse rate used to be well controlled on Coreg 6.25 mg twice a day in the past. Patient will be going to the OR by cardiothoracic and she will have more repair along with chest tube as well. 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 Patient will be back to the ICU after surgery 03/31: Patient evaluated in the ICU this morning, sitting up in the bedside loni rodriguez, in no acute distress. She is postop day #1 status post left posterior lateral thoracotomy, closure of the bronchopleural fistula, and cryoablation of the intercostal nerves. Patient still has 2 left-sided chest tubes in place, she continues on Levaquin, vancomycin, and Aztreonam. Cultures are still pending, infectious disease on consult. Repeat chest x-ray shows residual left pneumothorax and left perihilar consolidation. Vital signs are stable, she is afebrile 98.0, heart rate is 90, respiratory 23, temperature 128/57, she's 95% on 3 L via nasal cannula. Objective - Vital Signs Vital signs: Vital Signs Temp 98.6 F 03/31/20 04:00 Pulse 84 03/31/20 07:04 Resp 27 H 03/31/20 06:00 BP 136/73 03/30/20 13:45 Pulse Ox 94 L 03/31/20 06:00 Intake & Output 03/30/20 03/31/20 03/31/20 18:59 06:59 18:59 Intake Total 1658 1126 Output Total 865 814 Balance 793 312 Weight 64.8 kg Intake: IV 718 986 .9 NS flush 18 36 ACETAMINOPHEN IV (For NPO 200 ) 1,000 mg In Empty Bag 1 bag @ 400 mls/hr IVPB Q6HR [facility] Rx#:[id number] Aztreonam 2 gm In Sodium 100 Chloride 0.9% 100 ml @ 33 .3 mls/hr IVPB Q8HR [facility] Rx#:[id number] Sodium Chloride 0.9% 1, 400 000 ml @ 40 mls/hr IV . Q24H [facility] Rx#:[id number] Vancomycin 1,250 mg In 250 Sodium Chloride 0.9% 250 ml @ 125 mls/hr IVPB Q12H [facility] Rx#:[id number] Intake, IV Titration 840 140 Amount ACETAMINOPHEN IV (For NPO 100 100 ) 1,000 mg In Empty Bag 1 bag @ 400 mls/hr IVPB Q6HR [facility] Rx#:[id number] Aztreonam 2 gm In Sodium 100 Chloride 0.9% 100 ml @ 33 .3 mls/hr IVPB Q8HR [facility] Rx#:[id number] Levofloxacin 750Mg-D5w 150 Pmx 750 mg In Dextrose/ Water 1 150ml.bag @ 100 mls/hr IVPB Q24H [facility] Rx#: [id number] Sodium Chloride 0.9% 1, 240 40 000 ml @ 40 mls/hr IV . Q24H [facility] Rx#:[id number] Vancomycin 1,250 mg In 250 Sodium Chloride 0.9% 250 ml @ 125 mls/hr IVPB Q12H [facility] Rx#:[id number] Oral 100 Output: Chest Tube Drainage 180 164 Chest Tube Left 5 14 Chest Tube Left Lateral 175 150 Chest Drainage 55 Left 20 Left Lateral Chest 35 Urine 530 650 Estimated Blood Loss 100 Other: Voiding Method Indwelling Catheter Indwelling Catheter ABP, PAP, CO, CI - Last Documented Arterial Blood Pressure 146/74 - Exam General Appearance: Alert, cooperative, no acute distress Neck HEENT: Supple, no lymphadenopathy, no thyroid enlargement, no carotid bruits. Lungs: Diminished breath on the left compared to the right Chest Wall: Left-sided chest tube in place, pigtail catheters in place, [address] Heart: Irregular rate and rhythm, S1, S2 normal, no murmur, rub or gallop. Back: Symmetric, no curvature, ROM normal, no CVA tenderness. Abdomen: Soft, non-tender, bowel sounds active all four quadrants, no masses, no organomegaly. Extremities: Extremities normal, atraumatic, no cyanosis or edema. Pulses: 2+ and symmetric. Skin: Skin color, texture, tugor normal, no rashes or lesions. Neurologic: Alert oriented x3 cranial nerves II through XII intact, no motor deficit, no abnormal balance or gait. - Labs CBC & Chem 7: 03/31/20 03:50 03/31/20 03:50 Labs: Abnormal Lab Results - Last 24 Hours (Table) 03/30/20 03/30/20 03/30/20 Range/Units 13:45 13:45 13:52 WBC 29.3 H (3.8-10.6) k/uL RBC 3.74 L (3.80-5.40) m/uL Hgb 10.0 L (11.4-16.0) gm/dL Hct 32.2 L (34.0-46.0) % Plt Count 790 H (150-450) k/uL Neutrophils # 28.2 H (1.3-7.7) k/uL Lymphocytes # 0.5 L (1.0-4.8) k/uL Sodium 132 L (137-145) mmol/L Creatinine 0.46 L (0.52-1.04) mg/dL Glucose 138 H (74-99) mg/dL POC Glucose (mg/dL) 136 H (75-99) mg/dL Alkaline Phosphatase 144 H (38-126) U/L Total Protein 5.6 L (6.3-8.2) g/dL Albumin 2.7 L (3.5-5.0) g/dL 03/31/20 03/31/20 Range/Units 03:50 03:50 WBC 26.7 H (3.8-10.6) k/uL RBC 3.59 L (3.80-5.40) m/uL Hgb 9.6 L (11.4-16.0) gm/dL Hct 30.3 L (34.0-46.0) % Plt Count 813 H (150-450) k/uL Neutrophils # 24.5 H (1.3-7.7) k/uL Lymphocytes # (1.0-4.8) k/uL Sodium 129 L (137-145) mmol/L Creatinine 0.48 L (0.52-1.04) mg/dL Glucose 121 H (74-99) mg/dL POC Glucose (mg/dL) (75-99) mg/dL Alkaline Phosphatase (38-126) U/L Total Protein 5.1 L (6.3-8.2) g/dL Albumin 2.4 L (3.5-5.0) g/dL Microbiology - Last 24 Hours (Table) 03/30/20 09:45 Gram Stain - Preliminary Other - Other Wound Culture - Preliminary 03/30/20 09:45 Anaerobic Culture - Preliminary Other - Other 03/29/20 12:08 Gram Stain - Preliminary Thoracic Fluid Body Fluid Culture - Preliminary Assessment and Plan Plan: 1 new onset of A. fib with RVR: Patient is now off Cardizem drip, cardiology on consult, pulse rate controlled on Coreg 6.25mg BID 2 large left-sided pleural effusion and pneumothorax: The patient had empyema of the left chest along with broncho-pleural fistula post exploratory thoracotomy with ablation of the intercostal nerves 3 squama cell carcinoma of the left upper lobe: Post robotic-assisted left upper lobectomy based on pathology and recommendation by cardiothoracic with decide with the patient need chemotherapy or not. 4 COPD: Patient will be continue on DuoNeb and possible Pulmicort continue O2 and titrate dose higher. 5 PAD: Post left carotid endarterectomy has been doing well since. 6 history of breast cancer post left-sided mastectomy and chemotherapy has been in remission. 7 history of hypertension: Was on Coreg has been doing well. 8 anxiety and panic attack has been on lorazepam. 9 Empyema: Was still be on antibiotic till culture from the pleural fluid is done, infectious disease on consult, may need PICC line for skilled nursing antibiotics. 10 mild anemia: Mostly iron deficiency continue iron supplement. 11 hypoglycemia: On diet control. 12 pain control: Patient had decrease ablation of the intercostal nerve L2 well 6 will continue patient on pain management as well Debility: We will advance PTOT in the next 48 hours. The above impression and plan of care have been discussed and directed by signing physician. Lindsay Aragon nurse practitioner acting as scribe for signing physician.
--- NOTE | 2020-03-31 12:13 | P.PN ---
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 Past medical history si gnificant for squamous cell carcinoma of the left lung status post robotically assisted left upper lobectomy with mediastinal lymph node dissection and repair of left main bronchus on 03/13/2020, pathology showed T2b, N0, M0, history of breast cancer status post left mastectomy, moderate to severe chronic restrictive pulmonary disease with a recent FEV1 value 72% of predicted value, history of left carotid stenosis status post left carotid endarterectomy in 2019, history of chronic tobacco dependence quit smoking in February 2020, history of degenerative joint disease. POD #1 Left posterior lateral thoracotomy, mobilization of latissimus muscle flap, exploratory thoracotomy through the fourth intercostal space, closure of bronchopleural fistula, decortication of left pleural space and portion of the left lower lobe, cryoablation of intercostal nerves L2 through L6, reinforcement of the bronchopleural fistula closure and modification in the left pleural space with the latissimus dorsi flap. POD #2 Fiberoptic bronchoscopy, left chest tube placement. The patient was seen in follow-up today 03/31/2020 at her bedside in the intensive care unit. Currently she is laying in bed, awake, alert and oriented 3. Denies any complaints of pain or shortness of breath at this time although is complaining of a loose cough and unable to cough up sputum. Oxygen saturations are 94% on 3 L nasal cannula and she is achieving 1000 mL on her incentive spirometry. Left pleural chest tube remains in place to low continuous wall suction -20 cm H2O. No air leak is present Draining thin serosanguineous drainage with 20 mL output in the last 24 hours. Left pleural YASMEEN drain remains in place to low continuous wall suction -20 cm H2O. Small air leak is present. Draining thin serosanguineous drainage with 60 mL output in the last 8 hours and 450 mL output since surgery. Left lateral chest YASMEEN drains [address] with Suction[address] YASMEEN drains drained 60 mL from the anterior drain and 20 mL from the posterior drain in the last 12 hours. She remains hemodynamically stable and is currently on no inotropic pressor support. Bedside telemetry shows normal sinus rhythm heart rate 86 BPM. 0.9% normal saline remains infusing at 40 mL per hour per her right IJ triple-lumen catheter. She is currently on Levaquin, aztreonam and vancomycin for antibiotic coverage which is being managed by infectious disease. Gram stain from bronchoscopy washings on 03/29/2020 show few gram-negative bacilli. Final culture results remain pending. The patient's daughter Mike is on the phone and has been updated on the patient's status. Objective - Vital Signs Vital signs: Vital Signs Temp 98.6 F 03/31/20 04:00 Pulse 84 03/31/20 07:04 Resp 27 H 03/31/20 06:00 BP 136/73 03/30/20 13:45 Pulse Ox 94 L 03/31/20 06:00 Intake & Output 03/30/20 03/31/20 03/31/20 18:59 06:59 18:59 Intake Total 1658 1126 23 Output Total 865 814 140 Balance 793 312 -117 Weight 64.8 kg Intake: IV 718 986 23 .9 NS flush 18 36 3 ACETAMINOPHEN IV (For NPO 200 ) 1,000 mg In Empty Bag 1 bag @ 400 mls/hr IVPB Q6HR [facility] Rx#:[id number] Aztreonam 2 gm In Sodium 100 Chloride 0.9% 100 ml @ 33 .3 mls/hr IVPB Q8HR [facility] Rx#:[id number] Sodium Chloride 0.9% 1, 400 20 000 ml @ 40 mls/hr IV . Q24H [facility] Rx#:[id number] Vancomycin 1,250 mg In 250 Sodium Chloride 0.9% 250 ml @ 125 mls/hr IVPB Q12H [facility] Rx#:[id number] Intake, IV Titration 840 140 Amount ACETAMINOPHEN IV (For NPO 100 100 ) 1,000 mg In Empty Bag 1 bag @ 400 mls/hr IVPB Q6HR [facility] Rx#:[id number] Aztreonam 2 gm In Sodium 100 Chloride 0.9% 100 ml @ 33 .3 mls/hr IVPB Q8HR [facility] Rx#:[id number] Levofloxacin 750Mg-D5w 150 Pmx 750 mg In Dextrose/ Water 1 150ml.bag @ 100 mls/hr IVPB Q24H [facility] Rx#: [id number] Sodium Chloride 0.9% 1, 240 40 000 ml @ 40 mls/hr IV . Q24H [facility] Rx#:[id number] Vancomycin 1,250 mg In 250 Sodium Chloride 0.9% 250 ml @ 125 mls/hr IVPB Q12H [facility] Rx#:[id number] Oral 100 Output: Chest Tube Drainage 180 164 Chest Tube Left 5 14 Chest Tube Left Lateral 175 150 Chest Drainage 55 90 Left 20 30 Left Lateral Chest 35 60 Urine 530 650 50 Estimated Blood Loss 100 Other: Voiding Method Indwelling Catheter Indwelling Catheter ABP, PAP, CO, CI - Last Documented Arterial Blood Pressure 146/74 - Constitutional General appearance: Present: average body habitus, cooperative, no acute distress - EENT Eyes: Present: normal appearance. Absent: scleral icterus ENT: Present: hard of hearing - Neck Details: Neck is supple, no JVD. - Respiratory Details: Lung sounds essentially clear to her right lobes, diminished breath sounds to her left chest. No wheezes, rhonchi or crackles. Respirations are symmetrical and nonlabored. Oxygen saturation is 94% on 3 L nasal cannula. Achieving 1000 mL on her incentive spirometry with encouragement. Left pleural chest tube remains in place to low continuous wall suction -20 cm H2O. No air leak is present Draining thin serosanguineous drainage with 20 mL output in the last 24 hours. Left pleural YASMEEN drain remains in place to low continuous wall suction - 20 cm H2O. Small air leak is present. Draining thin serosanguineous drainage with 60 mL output in the last 8 hours and 450 mL output since surgery. Left lateral chest YASMEEN drains [address] with Suction. - Cardiovascular Details: Regular rhythm and rate. S1 and S2 present, negative for S3, gallop or murmur. Bedside telemetry showing normal sinus rhythm heart rate 86 BPM. No edema present. Knee-high sequential compression devices and knee-high EULOGIO hose in place were bilateral lower extremities. - Gastrointestinal Gastrointestinal Comment(s): Abdomen is soft, nontender and nondistended. Active bowel sounds present in all 4 abdominal quadrants. No guarding or rigidity. No megaly appreciated. Tolerating oral intake. - Genitourinary Genitourinary Comment(s): Macdonald catheter for accurate I&O. Draining clear yellow urine. 430 mL output the last 8 hours. - Integumentary Integumentary Comment(s): Skin is warm and dry. No clubbing or cyanosis is present. Left lateral thoracotomy incision clean, dry and approximated. No drainage or redness is present. Dressing is clean, dry and intact. Left lateral chest thoracoscopy incision site clean, dry and approximated. No drainage or redness is present. Left lateral chest YASMEEN drains [address] with bulb suction. YASMEEN drains drained 60 mL from the anterior drain and 20 mL from the posterior drain in the last 12 hours. - Neurologic Neurologic: Present: CNII-XII intact - Musculoskeletal Musculoskeletal: Present: gait normal, generalized weakness, strength equal bilaterally - Psychiatric Psychiatric: Present: A&O x's 3, appropriate affect, intact judgment & insight - Allied health notes Allied health notes reviewed: nursing - Labs CBC & Chem 7: 03/31/20 03:50 03/31/20 03:50 Labs: Abnormal Lab Results - Last 24 Hours (Table) 03/30/20 03/30/20 03/30/20 Range/Units 13:45 13:45 13:52 WBC 29.3 H (3.8-10.6) k/uL RBC 3.74 L (3.80-5.40) m/uL Hgb 10.0 L (11.4-16.0) gm/dL Hct 32.2 L (34.0-46.0) % Plt Count 790 H (150-450) k/uL Neutrophils # 28.2 H (1.3-7.7) k/uL Lymphocytes # 0.5 L (1.0-4.8) k/uL Sodium 132 L (137-145) mmol/L Creatinine 0.46 L (0.52-1.04) mg/dL Glucose 138 H (74-99) mg/dL POC Glucose (mg/dL) 136 H (75-99) mg/dL Alkaline Phosphatase 144 H (38-126) U/L Total Protein 5.6 L (6.3-8.2) g/dL Albumin 2.7 L (3.5-5.0) g/dL 03/31/20 03/31/20 Range/Units 03:50 03:50 WBC 26.7 H (3.8-10.6) k/uL RBC 3.59 L (3.80-5.40) m/uL Hgb 9.6 L (11.4-16.0) gm/dL Hct 30.3 L (34.0-46.0) % Plt Count 813 H (150-450) k/uL Neutrophils # 24.5 H (1.3-7.7) k/uL Lymphocytes # (1.0-4.8) k/uL Sodium 129 L (137-145) mmol/L Creatinine 0.48 L (0.52-1.04) mg/dL Glucose 121 H (74-99) mg/dL POC Glucose (mg/dL) (75-99) mg/dL Alkaline Phosphatase (38-126) U/L Total Protein 5.1 L (6.3-8.2) g/dL Albumin 2.4 L (3.5-5.0) g/dL Microbiology - Last 24 Hours (Table) 03/30/20 09:45 Gram Stain - Preliminary Other - Other Wound Culture - Preliminary 03/30/20 09:45 Anaerobic Culture - Preliminary Other - Other 03/29/20 12:08 Gram Stain - Preliminary Thoracic Fluid Body Fluid Culture - Preliminary - Imaging and Cardiology Chest x-ray: report reviewed, image reviewed Assessment and Plan Assessment: 1. Empyema left chest with bronchopleural fistula, status post left upper lobectomy, status post left posterior lateral thoracotomy, mobilization of latis simus muscle flap, closure of bronchopleural fistula, decortication of left pleural space and portion of the left lower lobe, reinforcement of the buccal pleural fistula closure and modification of the left pleural space with latissimus dorsi flap 2. New onset atrial fibrillation with RVR, currently in normal sinus rhythm 3. Leukocytosis secondary to empyema 4. Squamous cell carcinoma left upper lobe lung, status post robotic-assisted left upper lobectomy on 03/13/2020, pathology showing T2b, N0 M0 5. Hypertension 6. Moderate to severe chronic obstructive pulmonary disease with a recent FEV1 72% of predicted value 7. History of carotid stenosis, status post left carotid endarterectomy in 2019 8. Previous chronic tobacco dependence quit smoking in February 2020 9. History of breast cancer, status post left mastectomy 10. History of degenerative joint disease Plan: 1. Wean oxygen as tolerated, encourage use of her incentive spirometry 10 times every hour while awake. 2. Bronchodilator management per pulmonary critical care management. 3. Atrial fibrillation management per cardiology recommendations. Currently on Coreg 6.25 mg by mouth twice a day. Cardizem drip has been discontinued. 4. Continue to monitor daily labs and chest x-rays. 5. GI and DVT prophylaxis. 6. Continue to reinforce the importance of continued smoking cessation. 7. Continue left pleural chest tube and left YASMEEN pleural tube to low continuous wall suction at -20 cm H2O. Continue to monitor for airleak resolution. 8. We will start Mucinex by mouth 1200 mg every 12 hours. 9. Antibiotic management per infectious disease recommendations, currently on Levaquin, vancomycin and aztreonam for antibiotic coverage. Remains afebrile. 10. Increase activity as tolerated. Out of bed for all meals. Physical and occupational therapy consulted. 11. Her home medication of Plavix was restarted this morning 75 mg by mouth daily. 12. Pain control per current when necessary orders. 13. Discontinue Macdonald catheter. Continue to record accurate I's and O's. 14. Final culture results remain pending. 15. More recommendations to follow based on patient's clinical course. Time with Patient: Greater than 30
[2020-03-31] MEDS: LEVOFLOXACIN 750MG-D5W PMX 750 MG in DEXTROSE/WATER 1 150ML.BAG IVPB SCH (12:38)
[2020-03-31] MEDS: SODIUM CHLORIDE 0.9% 1,000 ML IV SCH ×2 (12:40→18:09)
[2020-03-31] MEDS ORDERED: bisacodyL 10 MG SUPP RECTAL STA (12:48)
[2020-03-31] MEDS ORDERED: VANCOMYCIN TROUGH DUE 1 EACH MISC MISCELLANE ONE (14:00)
--- NOTE | 2020-03-31 14:42 | P.PN ---
Subjective Progress Note Date: 03/31/20 Principal diagnosis: Paroxysmal atrial fibrillation This is a 69-year-old female patient who is status post recent left upper lobectomy who we consulted to see her for brief episode of paroxysmal atrial fibrillation converted to normal sinus mechanism on Cardizem IV. The patient was seen this morning. She is maintaining normal sinus mechanism. She is on Coreg. She is on Plavix but she is not on any oral anticoagulation. I will address this issue tomorrow with the surgeon to see if it's safe to start the patient on oral anticoagulation. She does have carotid disease and that why she is on Plavix. Objective - Vital Signs Vital signs: Vital Signs Temp 98 F 03/31/20 12:00 Pulse 84 03/31/20 14:00 Resp 30 H 03/31/20 14:00 BP 136/73 03/31/20 07:00 Pulse Ox 97 03/31/20 14:00 Intake & Output 03/30/20 03/31/20 03/31/20 18:59 06:59 18:59 Intake Total 1658 1126 733 Output Total 865 814 620 Balance 793 312 113 Weight 64.8 kg Intake: IV 718 986 613 .9 NS flush 18 36 93 ACETAMINOPHEN IV (For NPO 200 ) 1,000 mg In Empty Bag 1 bag @ 400 mls/hr IVPB Q6HR [facility] Rx#:[id number] Aztreonam 2 gm In Sodium 100 200 Chloride 0.9% 100 ml @ 33 .3 mls/hr IVPB Q8HR [facility] Rx#:[id number] Levofloxacin 750Mg-D5w 300 Pmx 750 mg In Dextrose/ Water 1 150ml.bag @ 100 mls/hr IVPB Q24H [facility] Rx#: [id number] Sodium Chloride 0.9% 1, 400 20 000 ml @ 40 mls/hr IV . Q24H [facility] Rx#:[id number] Vancomycin 1,250 mg In 250 Sodium Chloride 0.9% 250 ml @ 125 mls/hr IVPB Q12H [facility] Rx#:[id number] Intake, IV Titration 840 140 Amount ACETAMINOPHEN IV (For NPO 100 100 ) 1,000 mg In Empty Bag 1 bag @ 400 mls/hr IVPB Q6HR [facility] Rx#:[id number] Aztreonam 2 gm In Sodium 100 Chloride 0.9% 100 ml @ 33 .3 mls/hr IVPB Q8HR [facility] Rx#:[id number] Levofloxacin 750Mg-D5w 150 Pmx 750 mg In Dextrose/ Water 1 150ml.bag @ 100 mls/hr IVPB Q24H [facility] Rx#: [id number] Sodium Chloride 0.9% 1, 240 40 000 ml @ 40 mls/hr IV . Q24H [facility] Rx#:[id number] Vancomycin 1,250 mg In 250 Sodium Chloride 0.9% 250 ml @ 125 mls/hr IVPB Q12H [facility] Rx#:[id number] Oral 100 120 Output: Chest Tube Drainage 180 164 90 Chest Tube Left 5 14 0 Chest Tube Left Lateral 175 150 90 Chest Drainage 55 90 Left 20 30 Left Lateral Chest 35 60 Urine 530 650 440 Estimated Blood Loss 100 Other: Voiding Method Indwelling Catheter Indwelling Catheter Indwelling Catheter # Voids 2 ABP, PAP, CO, CI - Last Documented Arterial Blood Pressure 115/62 - Constitutional General appearance: Present: no acute distress - Respiratory Respiratory: bilateral: diminished - Labs CBC & Chem 7: 03/31/20 03:50 03/31/20 03:50 Labs: Abnormal Lab Results - Last 24 Hours (Table) 03/30/20 03/30/20 03/31/20 Range/Units 13:45 13:45 03:50 WBC 26.7 H (3.8-10.6) k/uL RBC 3.59 L (3.80-5.40) m/uL Hgb 9.6 L (11.4-16.0) gm/dL Hct 30.3 L (34.0-46.0) % Plt Count 813 H (150-450) k/uL Neutrophils # 28.2 H 24.5 H (1.3-7.7) k/uL Lymphocytes # 0.5 L (1.0-4.8) k/uL Sodium 132 L (137-145) mmol/L Creatinine 0.46 L (0.52-1.04) mg/dL Glucose 138 H (74-99) mg/dL Alkaline Phosphatase 144 H (38-126) U/L Total Protein 5.6 L (6.3-8.2) g/dL Albumin 2.7 L (3.5-5.0) g/dL 12/28/20 Range/Units 03:50 WBC (3.8-10.6) k/uL RBC (3.80-5.40) m/uL Hgb (11.4-16.0) gm/dL Hct (34.0-46.0) % Plt Count (150-450) k/uL Neutrophils # (1.3-7.7) k/uL Lymphocytes # (1.0-4.8) k/uL Sodium 129 L (137-145) mmol/L Creatinine 0.48 L (0.52-1.04) mg/dL Glucose 121 H (74-99) mg/dL Alkaline Phosphatase (38-126) U/L Total Protein 5.1 L (6.3-8.2) g/dL Albumin 2.4 L (3.5-5.0) g/dL Microbiology - Last 24 Hours (Table) 03/29/20 12:08 Anaerobic Culture - Preliminary Thoracic Fluid 03/29/20 12:08 Gram Stain - Final Bronchial Washings - Left Bronchial Washings Culture - Final 03/29/20 12:08 Gram Stain - Preliminary Thoracic Fluid Body Fluid Culture - Preliminary 03/30/20 09:45 Gram Stain - Preliminary Other - Other Wound Culture - Preliminary 03/30/20 09:45 Anaerobic Culture - Preliminary Other - Other Assessment and Plan Assessment: Assessment #1 paroxysmal atrial fibrillation #2 status post recent left upper lobectomy #3 left pleural effusion #4 carotid disease #5 multiple comorbid conditions Plan #1 continue the current medical regimen #2 consider oral anticoagulation if it's safe #3 follow-up with the patient
[2020-03-31] MEDS ORDERED: SODIUM CHLORIDE 0.9% 1,000 ML IV ONE (18:04)
--- NOTE | 2020-03-31 22:27 | PN ---
PROGRESS NOTE DATE OF SERVICE: 03/31/2020 REASON FOR FOLLOWUP: Left-sided empyema. INTERVAL HISTORY: The patient is currently afebrile. The patient is breathing more comfortably. Continues to have pain to the left side of the chest with decreased intensity. No nausea. No vomiting. No abdominal pain or diarrhea. PHYSICAL EXAMINATION: Blood pressure 166/80 with a pulse of 98, temperature 98.1. She is 96% on 3 L nasal cannula. General description is an elderly female lying in bed in no distress. RESPIRATORY SYSTEM: Unlabored breathing with decreased intensity of breath sounds. No wheeze. HEART: S1, S2. Regular rate and rhythm. ABDOMEN: Soft. No tenderness. LABS: Hemoglobin 9.3, white count 26.7, BUN of 12, creatinine 0.48. DIAGNOSTIC IMPRESSION AND PLAN: Patient with left-sided empyema in this patient who is status post bronchoscopy and left-sided chest tube. Cultures are currently pending. Patient is covered with Azactam and vancomycin; to continue while waiting for the cultures to finalize. Continue supportive care. MMODL / IJN: [id number] /
[2020-03-31] MEDS: HYDROcodone/APAP 5-325MG 1 EACH TAB PO PRN (23:29)
[2020-04-01] MEDS: VANCOMYCIN 1,250 MG in SODIUM CHLORIDE 0.9% 250 ML IVPB SCH ×2 (03:47→16:22)
[2020-04-01] MEDS: SODIUM CHLORIDE 0.9% 1,000 ML IV SCH ×2 (03:48→16:23)
[2020-04-01] MEDS: ONDANSETRON 4 MG/2 ML VIAL IVP PRN ×2 (03:53→15:33)
[2020-04-01 04:17] LABS: Basophils % (A) 0 %; Eosinophils % (A) 0 %; HCT 23.9 % (34.0-46.0); Hypochromasia Slight; Lymphocytes # (A) 1.3 k/uL (1.0-4.8); Lymphocytes % (A) 9 %; MCH 27.5 pg (25.0-35.0); MCHC 32.2 g/dL (31.0-37.0); MCV 85.4 fL (80.0-100.0); Mean Platelet Volume 6.2; Monocytes % (A) 6 %; Neutrophils # (A) 13.1 k/uL (1.3-7.7); Neutrophils % (A) 84 %; Platelet Count 729 k/uL (150-450); RDW 14.5 % (11.5-15.5); WBC 15.6 k/uL (3.8-10.6)
[2020-04-01 04:33] LABS: ALT 20 U/L (4-34); AST 19 U/L (14-36); African American GFR (CKD) >90 (>60 ml/min/1.73 sqM); Alkaline Phosphatase 96 U/L (38-126); Anion Gap 2 mmol/L; Blood Urea Nitrogen 16 mg/dL (7-17); Calcium 8.1 mg/dL (8.4-10.2); Carbon Dioxide 24 mmol/L (22-30); Chloride 104 mmol/L (98-107); Glucose 123 mg/dL (74-99); Non-African American GFR(CKD) >90 (>60 ml/min/1.73 sqM); Potassium 4.5 mmol/L (3.5-5.1); Sodium 130 mmol/L (137-145); Total Bilirubin 0.2 mg/dL (0.2-1.3); Total Protein 4.4 g/dL (6.3-8.2)
[2020-04-01 04:35] LABS: HGB 7.7 gm/dL (11.4-16.0)
[2020-04-01] MEDS: HYDROcodone/APAP 5-325MG 1 EACH TAB PO PRN (05:56)
[2020-04-01] MEDS: KETOROLAC 15 MG/ML 1 ML VIAL IVP SCH ×2 (06:12→12:36)
[2020-04-01] MEDS: IPRATROPIUM-ALBUTEROL 3 ML NEB INHALATION SCH ×3 (07:25→20:48)
--- NOTE | 2020-04-01 07:28 | P.PN ---
Subjective Progress Note Date: 04/01/20 Principal diagnosis: Paroxysmal atrial fibrillation This is a 69-year-old female patient who is status post recent left upper lobectomy who we consulted to see her for brief episode of paroxysmal atrial fibrillation converted to normal sinus mechanism on Cardizem IV. The patient was seen this morning. She is very pale. The hemoglobin is about 7. She continues to have pain from the chest acute on the left side. The chest x-ray showed some improvement. She has been maintaining normal sinus mechanism. We'll hold on any anticoagulation at this point since the patient has been maintaining sinus mechanism and also in view of the bleeding from the chest to 2. Otherwise we will follow-up with the patient on when necessary case. Objective - Vital Signs Vital signs: Vital Signs Temp 98.4 F 04/01/20 04:00 Pulse 95 04/01/20 07:00 Resp 18 04/01/20 07:00 BP 136/73 03/31/20 07:00 Pulse Ox 99 04/01/20 07:00 Intake & Output 03/31/20 04/01/20 04/01/20 18:59 06:59 18:59 Intake Total 1163 740 Output Total 810 870 30 Balance 353 -130 -30 Weight 66 kg Intake: IV 1043 740 .9 NS flush 173 240 Aztreonam 2 gm In Sodium 300 Chloride 0.9% 100 ml @ 33 .3 mls/hr IVPB Q8HR [facility] Rx#:[id number] Levofloxacin 750Mg-D5w 300 Pmx 750 mg In Dextrose/ Water 1 150ml.bag @ 100 mls/hr IVPB Q24H [facility] Rx#: [id number] Sodium Chloride 0.9% 1, 20 000 ml @ 40 mls/hr IV . Q24H [facility] Rx#:[id number] Sodium Chloride 0.9% 1, 500 000 ml @ 500 mls/hr IV . Q2H [facility] Rx#:[id number] Vancomycin 1,250 mg In 250 Sodium Chloride 0.9% 250 ml @ 125 mls/hr IVPB Q12H [facility] Rx#:[id number] Oral 120 Output: Chest Tube Drainage 120 140 30 Chest Tube Left 0 130 30 Chest Tube Left Lateral 120 10 Chest Drainage 170 345 Left 40 220 Left Lateral Chest 130 125 Urine 520 385 Other: Voiding Method Indwelling Catheter Indwelling Catheter # Voids 2 ABP, PAP, CO, CI - Last Documented Arterial Blood Pressure 102/54 - Constitutional General appearance: Present: no acute distress - Respiratory Respiratory: left: diminished - Cardiovascular Rhythm: regular - Labs CBC & Chem 7: 04/01/20 04:00 04/01/20 04:00 Labs: Abnormal Lab Results - Last 24 Hours (Table) 04/01/20 04/01/20 Range/Units 04:00 04:00 WBC 15.6 H (3.8-10.6) k/uL RBC 2.80 L (3.80-5.40) m/uL Hgb 7.7 L D (11.4-16.0) gm/dL Hct 23.9 L (34.0-46.0) % Plt Count 729 H (150-450) k/uL Neutrophils # 13.1 H (1.3-7.7) k/uL Sodium 130 L (137-145) mmol/L Creatinine 0.51 L (0.52-1.04) mg/dL Glucose 123 H (74-99) mg/dL Calcium 8.1 L (8.4-10.2) mg/dL Total Protein 4.4 L (6.3-8.2) g/dL Albumin 2.0 L (3.5-5.0) g/dL Microbiology - Last 24 Hours (Table) 03/29/20 12:08 Anaerobic Culture - Preliminary Thoracic Fluid 03/29/20 12:08 Gram Stain - Final Bronchial Washings - Left Bronchial Washings Culture - Final 03/29/20 12:08 Gram Stain - Preliminary Thoracic Fluid Body Fluid Culture - Preliminary 03/30/20 09:45 Gram Stain - Preliminary Other - Other Wound Culture - Preliminary Assessment and Plan Assessment: Assessment #1 paroxysmal atrial fibrillation #2 status post recent left upper lobectomy #3 left pleural effusion and status post chest tube #4 carotid disease #5 multiple comorbid conditions Plan #1 continue the current medical regimen #2 follow-up with the patient on when necessary case
--- NOTE | 2020-04-01 07:54 | P.PN ---
Subjective Progress Note Date: 04/01/20 On 03/31/2020 the patient is being seen for a follow-up. 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 The patient was taken to the operating room approximately 2 weeks ago and the patient underwent a robotic-assisted left upper lobe resection. Postop, the patient was discharged home to be readmitted back to the hospital rule out empyema and air-fluid levels in the left chest along with a new onset atrial fibrillation and elevated white cell count. 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 A lesser the chest tube was placed at a time and drained turbid fluid. Gram stain was positive for gram-negative rods. Subsequently, the patient was taken back to the operating room and the patient underwent a thoracotomy and closure of a bronco pleural fistula with a muscle flap. The patient underwent a left posterior lateral thoracotomy, mobilization of the latissimus muscle flap, exploratory thoracotomy through the fourth inter costal space, closure of the bronchopleural fistula and decortication of the left pleural space and portion of the left lower lobe and cryo-ablation of the intercostal nerves II through through L6 was done and reinforcement of the fistula was done and modification of the left pleural space with latissimus dorsi flap. The patient intraoperatively was found to have an empyema of the left chest as mentioned. Postop, the patient was extubated and the patient was brought back to the intensive care unit for further monitoring. She was placed on oxygen at 3 L about 2 by nasal cannula. There was a left-sided chest tube in place with a Pleur-evac and there were also 2 YASMEEN drains within the pleural space. The patient was being covered with broad-spectrum antibiotics including a combination of Levaquin, aztreonam and vancomycin pending further cultures from the pleural space. The patient was on tramadol 50 mg every 6 hours when necessary basis for pain control. The patient is also on [place] 53 25 one tablet every 4-6 hours on a when necessary basis for pain control. The patient recovered from the atrial fibrillation and the patient is currently in sinus rhythm. Cardizem drip has been discontinued and the patient was placed on Coreg 6.25 mg by mouth twice a day. She is on heparin subcu for DVT prophylaxis. IV fluids running at 40 mL an hour of normal saline. Chest x-ray revealed a pleural air fluid levels/pneumothorax and the left upper chest area measuring 2.1 cm in size. A small left-sided pleural effusion/consolidation of the left lung base. There were 2 drains within the pleural space in addition to surgical changes are thoracotomy. The patient has a right IJ triple-lumen catheter in place. Liver output, the chest tube has put out approximately 20 mL over the past 24 hours and there is no evidence of any air leak. As for the YASMEEN drains,one in the pleural space and drained approximately 450 over the past 24 hours. Whereas the other YASMEEN drains are present in her lap and drained 60 mL and 20 mL over the past 12 hours. She is awake and alert. She is using incentive spirometer. She is afebrile. Hemodynamically stable. She is on no pressors. IV fluids are running at the rate of 40 mL an hour. She is tolerating her diet. Today's evaluation of 04/01/2020, the patient is being seen for a follow-up. The patient is doing essentially the same as yesterday. She is using incentive spirometer and she is pulling approximately 800 mL on her I asked. The patient had a follow-up chest x-ray today that showed no major interval change compared to yesterday's chest x-ray. I do not appreciate any pneumothorax. All of the drains in the tubes are still in place. Note that the patient has a regular posterior chest to talk with of which has been minimal in the order of 10 mL over the past 24 hours and it's still has some minimal amount of intermittent ai r leak. The YASMEEN drains in the flap is in order of 250 mL in the anterior pain and 125 in the posterior drain over the past 8 hours. His another third drain in the pleural space output of which is still 120 mL over the past 24 hours. Cultures still pending for now. There is gram-negative bacteria. The patient remains on a combination of Levaquin, aztreonam and vancomycin. Surgical wound site is dry clean and intact. The patient has some swelling along the left posterior chest area at the surgical sites. No hematoma collection. She has a congested cough. Unable to bring up much sputum. She is afebrile. Her white cell count has dropped and the count is down to 15. The patient remains on normal saline at the rate of 100 mL an hour. He was having a low urine output in the order of 10-20 mL yesterday and this is improved with the increase the fluid rates. Creatinine is stable for now. Her pain is under adequate control and she is on [place]. She has received cryoablation. She is postop day #2. Cardiac rhythm is sinus. There is no atrial fibrillation. The patient is off all drips and she is utilizing Coreg for rate control. Objective - Vital Signs Vital signs: Vital Signs Temp 98.4 F 04/01/20 04:00 Pulse 95 04/01/20 07:00 Resp 18 04/01/20 07:00 BP 136/73 03/31/20 07:00 Pulse Ox 99 04/01/20 07:00 Intake & Output 03/31/20 04/01/20 04/01/20 18:59 06:59 18:59 Intake Total 1163 740 Output Total 810 870 30 Balance 353 -130 -30 Weight 66 kg Intake: IV 1043 740 .9 NS flush 173 240 Aztreonam 2 gm In Sodium 300 Chloride 0.9% 100 ml @ 33 .3 mls/hr IVPB Q8HR [facility] Rx#:[id number] Levofloxacin 750Mg-D5w 300 Pmx 750 mg In Dextrose/ Water 1 150ml.bag @ 100 mls/hr IVPB Q24H [facility] Rx#: [id number] Sodium Chloride 0.9% 1, 20 000 ml @ 40 mls/hr IV . Q24H [facility] Rx#:[id number] Sodium Chloride 0.9% 1, 500 000 ml @ 500 mls/hr IV . Q2H [facility] Rx#:[id number] Vancomycin 1,250 mg In 250 Sodium Chloride 0.9% 250 ml @ 125 mls/hr IVPB Q12H [facility] Rx#:[id number] Oral 120 Output: Chest Tube Drainage 120 140 30 Chest Tube Left 0 130 30 Chest Tube Left Lateral 120 10 Chest Drainage 170 345 Left 40 220 Left Lateral Chest 130 125 Urine 520 385 Other: Voiding Method Indwelling Catheter Indwelling Catheter # Voids 2 ABP, PAP, CO, CI - Last Documented Arterial Blood Pressure 102/54 - Exam GENERAL EXAM: Alert, pleasant 69-year-old female patient, on 3 L nasal cannula, fairly comfortable in no apparent distress. HEAD: Normocephalic. EYES: Normal reaction of pupils, equal size. NOSE: Clear with pink turbinates. THROAT: No erythema or exudates. NECK: No masses, no JVD. CHEST: Left-sided chest tube in place, pigtail catheter in place, [address] LUNGS: Diminished breath on the left compared to the right. The left side of the chest is sore to palpation. CVS: S1 and S2 normal with no audible murmur, regular rhythm. ABDOMEN: No hepatosplenomegaly, normal bowel sounds, no guarding or rigidity. SPINE: No scoliosis or deformity SKIN: No rashes CENTRAL NERVOUS SYSTEM: No focal deficits, tone is normal in all 4 extremities. EXTREMITIES: There is no peripheral edema. No clubbing, no cyanosis. Peripheral pulses are intact. - Labs CBC & Chem 7: 04/01/20 04:00 04/01/20 04:00 Labs: Abnormal Lab Results - Last 24 Hours (Table) 04/01/20 04/01/20 Range/Units 04:00 04:00 WBC 15.6 H (3.8-10.6) k/uL RBC 2.80 L (3.80-5.40) m/uL Hgb 7.7 L D (11.4-16.0) gm/dL Hct 23.9 L (34.0-46.0) % Plt Count 729 H (150-450) k/uL Neutrophils # 13.1 H (1.3-7.7) k/uL Sodium 130 L (137-145) mmol/L Creatinine 0.51 L (0.52-1.04) mg/dL Glucose 123 H (74-99) mg/dL Calcium 8.1 L (8.4-10.2) mg/dL Total Protein 4.4 L (6.3-8.2) g/dL Albumin 2.0 L (3.5-5.0) g/dL Microbiology - Last 24 Hours (Table) 03/29/20 12:08 Anaerobic Culture - Preliminary Thoracic Fluid 03/29/20 12:08 Gram Stain - Final Bronchial Washings - Left Bronchial Washings Culture - Final 03/29/20 12:08 Gram Stain - Preliminary Thoracic Fluid Body Fluid Culture - Preliminary 03/30/20 09:45 Gram Stain - Preliminary Other - Other Wound Culture - Preliminary Assessment and Plan Plan: 1 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 Status post Left posterior lateral thoracotomy, mobilization of latissimus muscle flap, exploratory thoracotomy through the fourth interspace, closure of bronchopleural fistula, decortication of left pleural space and portion of the left lower lobe, cryoablation of intercostal nerves L2 through L6, reinforcement of the bronchopleural fistula closure and modification in the left pleural space with the latissimus dorsi flap. Post operative day #2. The patient is growing gram-negative bacteria in the empyema fluid and the patient is currently on a combination of Levaquin, azactam and vancomycin. Further cultures and sensitivities are pending. Chest x-ray shows no major interval change compared to yesterday and that is no evidence of any pneumothorax. We are still awaiting the final cultures from the pleural fluid that was aspirated earlier chest tube and intraoperatively. I suspect a either a gram-negative or anaerobic infection. The patient is still on a combination of Levaquin, vancomycin and aztreonam.. The patient has chest tube in addition to the drains in addition to a pigtail catheter in the left pleural space. 2 Bronchopleural fistula, left upper lobe apical stump status post fiberoptic bronchoscopy, left chest tube placement. Postoperative day #3 output is minimal and the patient has mild intermittent air leak. No evidence of pneumothorax and today's chest x-ray.. 3 Squamous cell carcinoma of the left lung, status post robotically assisted left upper lobectomy with mediastinal lymph node dissection on 03/13/2020. Postoperatively, the patient had a T2b, N0, M0 disease 4 New-onset atrial fibrillation requiring Cardizem drip, currently in sinus rhythm 5 Moderate to severe chronic obstructive pulmonary disease with FEV1 value 72% of predicted 6 History of breast cancer status post left mastectomy 7 Carotid artery disease status post left carotid endarterectomy 8 History of chronic tobacco dependence 9 History of degenerative joint disease 10 leukocytosis secondary to above. Plan: COntinue O2 @ 3 L nasal cannula in the ICU, wean down as tolerated to maintain a saturation above 90% and continue using incentive spirometer Postop chest x-ray reviewed, repeat chest x-ray on a daily basis left-sided chest tubes in place, positive leak, the Pleur-evac and wall suction him a and the YASMEEN drains are in place within the muscle flap Continue Levaquin /Aztreonam and Vanco for antibiotic coverage and bronchodilator can consider the addition of anaerobic coverage and this will be discussed with infectious disease. Note that the patient's white cell count is improving. Encouraged increased use of the incentive spirometer and cough and deep breathing exercises We will continue to follow and make further recommendations based on her clinical status
[2020-04-01] MEDS ORDERED: ALBUMIN HUMAN 5% 250 ML in EMPTY BAG 1 BAG IVPB ONE ×2 (08:15→09:30)
--- NOTE | 2020-04-01 08:31 | XR ---
EXAMINATION TYPE: XR chest 1V portable DATE OF EXAM: 04/01/2020 COMPARISON: 03/31/2020 INDICATION: Post op Left thoracotomy TECHNIQUE: Single frontal view of the chest is obtained. FINDINGS: The heart size is normal. The pulmonary vasculature is normal. Has been a left thoracotomy. 2 large left-sided chest tubes are present. Surgical suture is evident. Apical pneumothorax may remain present. Right central venous catheter is present with tip in the proximal right atrium. Right basilar chest t ube is present. Small left pleural fluid is present. IMPRESSION: 1. There may be some improvement of the aeration through the remaining left lung post lobectomy. Pneu mothorax remains present.
[2020-04-01 08:36] LABS: Glucose,Whole Blood 179 mg/dL (75-99)
[2020-04-01] MEDS: CLOPIDOGREL 75 MG TAB PO SCH (08:59)
[2020-04-01] MEDS: carvediloL 6.25 MG TAB PO SCH ×2 (08:59→19:29)
[2020-04-01] MEDS: HEPARIN SODIUM,PORCINE 5,000 UNIT/ML 1 ML VIAL SQ SCH ×3 (09:14→23:57)
[2020-04-01] MEDS: AZTREONAM 2 GM in SODIUM CHLORIDE 0.9% 100 ML IVPB SCH ×2 (09:16→16:22)
[2020-04-01] MEDS ORDERED: ALBUMIN HUMAN 5% 250 ML IVPB ONE (09:18)
--- NOTE | 2020-04-01 09:38 | P.PN ---
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 Past medical history si gnificant for squamous cell carcinoma of the left lung status post robotically assisted left upper lobectomy with mediastinal lymph node dissection and repair of left main bronchus on 03/13/2020, pathology showed T2b, N0, M0, history of breast cancer status post left mastectomy, moderate to severe chronic restrictive pulmonary disease with a recent FEV1 value 72% of predicted value, history of left carotid stenosis status post left carotid endarterectomy in 2019, history of chronic tobacco dependence quit smoking in February 2020, history of degenerative joint disease. POD #2 Left posterior lateral thoracotomy, mobilization of latissimus muscle flap, exploratory thoracotomy through the fourth intercostal space, closure of bronchopleural fistula, decortication of left pleural space and portion of the left lower lobe, cryoablation of intercostal nerves L2 through L6, reinforcement of the bronchopleural fistula closure and modification in the left pleural space with the latissimus dorsi flap. POD #3 Fiberoptic bronchoscopy, left chest tube placement. Postoperative acute blood loss anemia, expected, dilutional. The patient was seen in follow-up today 04/01/2020 at her bedside in the intensive care unit. Currently she is laying in bed, awake, alert and oriented 3. Denies any complaints of shortness of breath , although is complaining of some surgical type pain to her chest tube insertion sites. Oxygen saturations are 99% on 2 L nasal cannula and she is achieving 750 mL on her incentive spirometry. Left pleural chest tube remains in place to low continuous wall suction -20 cm H2O. No air leak is present Draining thin serosanguineous drainage with 20 mL output in the last 24 hours. Left pleural YASMEEN drain remains in place to low continuous wall suction -20 cm H2O. Small intermittent air leak is present. Draining thin serosanguineous drainage with 130 mL output in the last 8 hours and 270 mL output in the last 24 hours. Left lateral chest YASMEEN drains [address] with bulb suction. YASMEEN drains drained 220 mL of thin serosanguineous drainage from the anterior chest wall YASMEEN drain and 125 mL from the posterior chest wall YASMEEN drain drain in the last 12 hours. She remains hemodynamically stable and is currently on no inotropic pressor support. Bedside telemetry shows normal sinus rhythm heart rate 93 BPM. 0.9% normal saline remains infusing at 100 mL per hour per her right IJ triple-lumen catheter. She remains on Levaquin, aztreonam and vancomycin for antibiotic coverage which is being managed by infectious disease. Gram stain from bronchoscopy washings on 03/29/2020 show few gram-negative bacilli. Final culture results remain pending. The patient's daughter Mike has been updated on the patient's status. Chest x-ray report from this morning shows some improvement of the aeration through the remaining left lung post-lobectomy. The patient is also complaining of lack of appetite and reports she has been eating only a small amount of her meals. She has been afebrile the last 24 hours. Lab results this morning show a WBC count trending down at 15.6, hemoglobin 7.7, hematocrit 23.9, platelets 729, BUN 16, creatinine 0.51. Objective - Vital Signs Vital signs: Vital Signs Temp 98.4 F 04/01/20 04:00 Pulse 95 04/01/20 07:00 Resp 18 04/01/20 07:00 BP 136/73 03/31/20 07:00 Pulse Ox 99 04/01/20 07:00 Intake & Output 03/31/20 04/01/20 04/01/20 18:59 06:59 18:59 Intake Total 1163 740 Output Total 810 870 30 Balance 353 -130 -30 Weight 66 kg Intake: IV 1043 740 .9 NS flush 173 240 Aztreonam 2 gm In Sodium 300 Chloride 0.9% 100 ml @ 33 .3 mls/hr IVPB Q8HR [facility] Rx#:[id number] Levofloxacin 750Mg-D5w 300 Pmx 750 mg In Dextrose/ Water 1 150ml.bag @ 100 mls/hr IVPB Q24H [facility] Rx#: [id number] Sodium Chloride 0.9% 1, 20 000 ml @ 40 mls/hr IV . Q24H [facility] Rx#:[id number] Sodium Chloride 0.9% 1, 500 000 ml @ 500 mls/hr IV . Q2H [facility] Rx#:[id number] Vancomycin 1,250 mg In 250 Sodium Chloride 0.9% 250 ml @ 125 mls/hr IVPB Q12H [facility] Rx#:[id number] Oral 120 Output: Chest Tube Drainage 120 140 30 Chest Tube Left 0 130 30 Chest Tube Left Lateral 120 10 Chest Drainage 170 345 Left 40 220 Left Lateral Chest 130 125 Urine 520 385 Other: Voiding Method Indwelling Catheter Indwelling Catheter # Voids 2 ABP, PAP, CO, CI - Last Documented Arterial Blood Pressure 102/54 - Constitutional General appearance: Present: average body habitus, cooperative, no acute distress - EENT Eyes: Present: normal appearance. Absent: scleral icterus ENT: Present: hearing grossly normal - Neck Details: Neck is supple, no JVD, no lymphadenopathy. Right IJ triple-lumen catheter in place and functioning. - Respiratory Details: Essentially clear to her right lobes, diminished to her left lobe. No wheezes, rhonchi or crackles. Respirations are symmetrical and nonlabored. Oxygen saturation are 99% on 2 L nasal cannula. Achieving 750 mL on her incentive spirometry. Left pleural chest tube remains in place to low continuous wall suction -20 cm H2O. No air leak is present Draining thin serosanguineous drainage with 20 mL output in the last 24 hours. Left pleural YASMEEN drain remains in place to low continuous wall suction -20 cm H2O. Small intermittent air leak is present. Draining thin serosanguineous drainage with 130 mL output in the l ast 8 hours and 270 mL output in the last 24 hours. - Cardiovascular Details: Regular rhythm and rate. S1 and S2 present, negative for S3, gallop or murmur. No edema present. Knee-high EULOGIO hose and sequential compression devices in place for bilateral lower extremities. Bedside telemetry showing normal sinus rhythm heart rate 93 BPM. Right radial arterial line in place and functioning. - Gastrointestinal Gastrointestinal Comment(s): Abdomen soft, nontender nondistended. Active bowel sounds present in all 4 abdominal quadrants. No guarding or rigidity. No organomegaly appreciated. Tolerating oral intake. - Genitourinary Genitourinary Comment(s): Macdonald catheter for accurate I&O. Draining clear yellow urine with 260 mL output in the last 8 hours. - Integumentary Integumentary Comment(s): Skin is warm and dry. No clubbing or cyanosis is present. Left lateral thoracotomy incision clean, dry and approximated. No drainage or redness is present. Some swelling to her left posterior chest wall at her surgical site. Soft and nontender to palpate. - Neurologic Neurologic: Present: CNII-XII intact. Absent: focal deficits - Musculoskeletal Musculoskeletal: Present: generalized weakness, strength equal bilaterally - Psychiatric Psychiatric Comment(s): Flat affect. Psychiatric: Present: A&O x's 3, intact judgment & insight - Allied health notes Allied health notes reviewed: nursing - Labs CBC & Chem 7: 04/01/20 04:00 04/01/20 04:00 Labs: Abnormal Lab Results - Last 24 Hours (Table) 04/01/20 04/01/20 04/01/20 Range/Units 04:00 04:00 08:34 WBC 15.6 H (3.8-10.6) k/uL RBC 2.80 L (3.80-5.40) m/uL Hgb 7.7 L D (11.4-16.0) gm/dL Hct 23.9 L (34.0-46.0) % Plt Count 729 H (150-450) k/uL Neutrophils # 13.1 H (1.3-7.7) k/uL Sodium 130 L (137-145) mmol/L Creatinine 0.51 L (0.52-1.04) mg/dL Glucose 123 H (74-99) mg/dL POC Glucose (mg/dL) 179 H (75-99) mg/dL Calcium 8.1 L (8.4-10.2) mg/dL Total Protein 4.4 L (6.3-8.2) g/dL Albumin 2.0 L (3.5-5.0) g/dL Microbiology - Last 24 Hours (Table) 03/29/20 12:08 Anaerobic Culture - Preliminary Thoracic Fluid 03/29/20 12:08 Gram Stain - Final Bronchial Washings - Left Bronchial Washings Culture - Final 03/29/20 12:08 Gram Stain - Preliminary Thoracic Fluid Body Fluid Culture - Preliminary 03/30/20 09:45 Gram Stain - Preliminary Other - Other Wound Culture - Preliminary - Imaging and Cardiology Chest x-ray: report reviewed, image reviewed Assessment and Plan Assessment: 1. Empyema left chest with bronchopleural fistula, status post left upper lobectomy, status post left posterior lateral thoracotomy, mobilization of latissimus muscle flap, closure of bronchopleural fistula, decortication of left pleural space and portion of the left lower lobe, reinforcement of the buccal pleural fistula closure and modification of the left pleural space with latissimus dorsi flap 2. New onset atrial fibrillation with RVR, currently in normal sinus rhythm 3. Leukocytosis secondary to empyema 4. Squamous cell carcinoma left upper lobe lung, status post robotic-assisted left upper lobectomy on 03/13/2020, pathology showing T2b, N0 M0 5. Hypertension 6. Moderate to severe chronic obstructive pulmonary disease with a recent FEV1 72% of predicted value 7. History of carotid stenosis, status post left carotid endarterectomy in 2018 8. Previous chronic tobacco dependence quit smoking in February 2020 9. History of breast cancer, status post left mastectomy 10. History of degenerative joint disease 11. Postoperative acute blood loss anemia, expected, dilutional Plan: 1. Wean oxygen as tolerated, encourage use of her incentive spirometry 10 times every hour while awake. 2. Bronchodilator management per pulmonary critical care management. 3. Atrial fibrillation management per cardiology recommendations. Currently on Coreg 6.25 mg by mouth twice a day. 4. Continue to monitor daily labs and chest x-rays. 5. GI and DVT prophylaxis. 6. Continue to reinforce the importance of continued smoking cessation. 7. Continue left pleural chest tube and left YASMEEN pleural tube to low continuous wall suction at -20 cm H2O. Continue to monitor for airleak resolution. Record strict inaccurate I's and O's. 8. Continue Mucinex by mouth 1200 mg every 12 hours. 9. Antibiotic management per infectious disease recommendations, currently on Levaquin, vancomycin and aztreonam for antibiotic coverage. Remains afebrile. Culture final results remain pending. 10. Increase activity as tolerated. Out of bed for all meals. Physical and occupational therapy following. 11. Continue Plavix 75 mg by mouth daily. 12. Pain control per current when necessary orders. 13. Continue Macdonald catheter for accurate I's and O's. Continue to record accurate I's and O's. 14. More recommendations to follow based on patient's clinical course. Time with Patient: Greater than 30
[2020-04-01 09:46] LABS: Basophils % (A) 0 %; Eosinophils % (A) 0 %; HCT 20.1 % (34.0-46.0); Hypochromasia Moderate; Lymphocytes # (A) 1.2 k/uL (1.0-4.8); Lymphocytes % (A) 7 %; MCH 26.3 pg (25.0-35.0); MCHC 30.3 g/dL (31.0-37.0); MCV 86.7 fL (80.0-100.0); Mean Platelet Volume 6.6; Monocytes # (A) 0.9 k/uL (0-1.0); Monocytes % (A) 5 %; Neutrophils # (A) 14.2 k/uL (1.3-7.7); Neutrophils % (A) 86 %; Platelet Count 693 k/uL (150-450); RBC 2.31 m/uL (3.80-5.40); RDW 14.8 % (11.5-15.5); WBC 16.4 k/uL (3.8-10.6)
[2020-04-01 10:00] LABS: HGB 6.1 gm/dL (11.4-16.0)
--- NOTE | 2020-04-01 10:28 | CT ---
EXAMINATION TYPE: CT chest wo con DATE OF EXAM: 04/01/2020 COMPARISON: Chest CT January 29, 2020. Chest CT March 29, 2020. Chest x-ray earlier today. HISTORY: Assess for Bleeding CT DLP: 352.6 mGycm. Automated Exposure Control for Dose Reduction was Utilized. TECHNIQUE: CT scan of the thorax is performed without IV contrast. FINDINGS: LUNGS: There is left basilar chest tube with residual small adjacent posterior inferior thin-walled p leural fluid collection containing nondependent air. There is a larger thin-walled pleural cavity containing majority air with small air-fluid level occup alejandra upper lung extending inferiorly anteriorly and laterally. This has pleural drainage catheter ter minating in the medial apex. There is unusual density containing fat and soft tissue in the pleural cavity axial image 23 for alyssa lenz measuring roughly 5.0 x 4.3 cm this appears to be herniated chest wall muscles and fat seen bes t on sagittal image 53 through the left third intercostal l space (between left third and fourth rib) at site posterior to the chest tube entry point. This extends all the way to the left hilar region a xial image 26. Left hilar surgical changes redemonstrated. There is third small pleural fluid collection with air po sterior left mid lung axial image 28 and has portion of chest tube crossing within it. Background mild to moderate underlying emphysematous change. Right lung remains clear. Subcutaneous air in the left chest wall is present. In addition there is hyperdense fluid collection with air probable hematoma along the posterior-inferior aspect measuring roughly 17 x 8 cm coronal im age 87. MEDIASTINUM: Lack of IV contrast is noted to limit evaluation for mediastinal and especially hilar ad enopathy. There are no definitive new greater than 1 cm hilar or mediastinal lymph nodes. No cardio megaly or pericardial effusion is seen. Coronary artery calcification redemonstrated. Calcification a t level of mitral valve. Stable right internal jugular central venous catheter. Coronary artery calci fication is redemonstrated . OTHER: Osseous structures are demineralized. Mild height loss involving T11 vertebra is redemonstrate d. IMPRESSION: 1. Postsurgical changes left lung. 2 left-sided chest tubes in pleural spaces contain small amount of residual fluid. There is chest wall herniation causing increased opacity in the left midlung at the third through fourth intercostal space. Note is made of moderate to large size organizing hematoma in the posterior lateral lower thoracic chest wall and subcutaneous tissue likely accounting for patien t's bleeding or hemoglobin drop.
[2020-04-01] MEDS: LETROZOLE 2.5 MG TAB PO SCH (11:50)
[2020-04-01] MEDS: LEVOFLOXACIN 750 MG TAB PO SCH (11:51)
[2020-04-01] MEDS: MAGNESIUM OXIDE 400 MG TAB PO SCH (11:51)
[2020-04-01] MEDS: ZINC SULFATE 220 MG CAP PO SCH (11:51)
[2020-04-01] MEDS: guaiFENesin 600 MG TABLET.ER PO SCH ×2 (11:51→19:30)
[2020-04-01] MEDS: CALCIUM CARB-VIT D 500 MG-5 MCG TAB PO SCH (11:51)
--- NOTE | 2020-04-01 12:16 | P.PN ---
Subjective 69-year-old female one of Dr. 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 Patient also survival of rest cancer post left mastectomy in 2010 post chemotherapy also she is known to have history of carotid stenosis post left carotid endarterectomy in 2018 previous history of tobacco use she quit in February this year continue to have moderate COPD with FEV1 of 72 percentile history of hypertension hyperlipidemia. Patient left the hospital on March 17 after surgery was seen pulmonary and cardiothoracic surgery on regular basis she returned to the [facility] department shortly after midnight today because of worsening dyspnea and shortness of breath with significant tachycardia according to patient she become more symptomatic with rapid ventricular response on and off become more symptomatic causing worsening shortness of breath. Was seen and evaluated demurs department her white blood cell was 18.5 hemoglobin 10.5 hematocrit 32.9 d-dimer was 2.48 patient COVID 19 testing was negative she found to be in A. fib with RVR pulse 153 beats per minutes cardiology were called along with cardiothoracic patient chest x-ray showed pleural effusion and pneumothorax of the left side. She was started on Cardizem drip brought the pulse rate down no anticoagulation was started this point patient was on Plavix since her carotid surgery and no previous history of A. fib her pulse rate used to be well controlled on Coreg 6.25 mg twice a day in the past. Patient will be going to the OR by cardiothoracic and she will have more repair along with chest tube as well. 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 Patient will be back to the ICU after surgery 03/31: Patient evaluated in the ICU this morning, sitting up in the bedside loni rodriguez, in no acute distress. She is postop day #1 status post left posterior lateral thoracotomy, closure of the bronchopleural fistula, and cryoablation of the intercostal nerves. Patient still has 2 left-sided chest tubes in place, she continues on Levaquin, vancomycin, and Aztreonam. Cultures are still pending, infectious disease on consult. Repeat chest x-ray shows residual left pneumothorax and left perihilar consolidation. Vital signs are stable, she is afebrile 98.0, heart rate is 90, respiratory 23, temperature 128/57, she's 95% on 3 L via nasal cannula. : Patient evaluated in the ICU, sitting up in the bedside chair. Nurse states she went to stand patient up to get her out of bed and she had a syncople episode. She was noted to be hypotensive 63/37 and tachycardic with a heart rate of 111. Stat CBC and repeat chest x-ray ordered, patient placed back in bed blood, pressure did come up to 99/47, heart rate 90. Hemoglobin 7.7, platelets 729, sodium 130, creatinine 0.51, BUN 16. Left pleural chest tube in place, left pleural YASMEEN drain in place and continues to drain serosanguineous drainage, left lateral chest YAMSEEN drains [address] with bulb suction. Repeat chest x-ray showed some improvement of aeration throughout the remaining left lung post lobectomy, pneumothorax remains. Objective - Vital Signs Vital signs: Vital Signs Temp 96.7 F L 04/01/20 08:00 Pulse 90 04/01/20 09:30 Resp 15 04/01/20 09:30 BP 93/61 04/01/20 09:30 Pulse Ox 99 04/01/20 09:30 Intake & Output 03/31/20 04/01/20 04/01/20 18:59 06:59 18:59 Intake Total 1163 740 706 Output Total 810 870 60 Balance 353 -130 646 Weight 66 kg Intake: IV 1043 740 706 .9 NS flush 173 240 6 Albumin Human 5% 250 ml 500 In Empty Bag 1 bag @ 250 mls/hr IVPB [facility] Rx#: [id number] Aztreonam 2 gm In Sodium 300 Chloride 0.9% 100 ml @ 33 .3 mls/hr IVPB Q8HR [facility] Rx#:[id number] Levofloxacin 750Mg-D5w 300 Pmx 750 mg In Dextrose/ Water 1 150ml.bag @ 100 mls/hr IVPB Q24H [facility] Rx#: [id number] Sodium Chloride 0.9% 1, 20 200 000 ml @ 40 mls/hr IV . Q24H [facility] Rx#:[id number] Sodium Chloride 0.9% 1, 500 000 ml @ 500 mls/hr IV . Q2H [facility] Rx#:[id number] Vancomycin 1,250 mg In 250 Sodium Chloride 0.9% 250 ml @ 125 mls/hr IVPB Q12H [facility] Rx#:[id number] Oral 120 Output: Chest Tube Drainage 120 140 30 Chest Tube Left 0 130 30 Chest Tube Left Lateral 120 10 Chest Drainage 170 345 Left 40 220 Left Lateral Chest 130 125 Urine 520 385 30 Other: Voiding Method Indwelling Catheter Indwelling Catheter # Voids 2 ABP, PAP, CO, CI - Last Documented Arterial Blood Pressure 99/49 - Exam General Appearance: Alert, cooperative, mild distress Neck HEENT: Supple, no lymphadenopathy, no thyroid enlargement, no carotid bruits. Lungs: Diminished breath on the left compared to the right Chest Wall: Left-sided chest tube in place, pigtail catheters in place, [address] Heart: Irregular rate and rhythm, S1, S2 normal, no murmur, rub or gallop. Back: Symmetric, no curvature, ROM normal, no CVA tenderness. Abdomen: Soft, non-tender, bowel sounds active all four quadrants, no masses, no organomegaly. Extremities: Extremities normal, atraumatic, no cyanosis or edema. Pulses: 2+ and symmetric. Skin: Skin color, texture, tugor normal, no rashes or lesions. Neurologic: Alert oriented x3 cranial nerves II through XII intact, no motor deficit, no abnormal balance or gait. - Labs CBC & Chem 7: 04/01/20 04:00 04/01/20 04:00 Labs: Abnormal Lab Results - Last 24 Hours (Table) 04/01/20 04/01/20 04/01/20 Range/Units 04:00 04:00 08:34 WBC 15.6 H (3.8-10.6) k/uL RBC 2.80 L (3.80-5.40) m/uL Hgb 7.7 L D (11.4-16.0) gm/dL Hct 23.9 L (34.0-46.0) % Plt Count 729 H (150-450) k/uL Neutrophils # 13.1 H (1.3-7.7) k/uL Sodium 130 L (137-145) mmol/L Creatinine 0.51 L (0.52-1.04) mg/dL Glucose 123 H (74-99) mg/dL POC Glucose (mg/dL) 179 H (75-99) mg/dL Calcium 8.1 L (8.4-10.2) mg/dL Total Protein 4.4 L (6.3-8.2) g/dL Albumin 2.0 L (3.5-5.0) g/dL Microbiology - Last 24 Hours (Table) 03/29/20 12:08 Anaerobic Culture - Preliminary Thoracic Fluid 03/29/20 12:08 Gram Stain - Final Bronchial Washings - Left Bronchial Washings Culture - Final 03/29/20 12:08 Gram Stain - Preliminary Thoracic Fluid Body Fluid Culture - Preliminary 03/30/20 09:45 Gram Stain - Preliminary Other - Other Wound Culture - Preliminary Assessment and Plan Plan: 1 new onset of A. fib with RVR: Patient is now off Cardizem drip, cardiology on consult, pulse rate controlled on Coreg 6.25mg BID 2 large left-sided pleural effusion and pneumothorax: The patient had empyema of the left chest along with broncho-pleural fistula post exploratory thoracotomy with ablation of the intercostal nerves 3 squama cell carcinoma of the left upper lobe: Post robotic-assisted left upper lobectomy based on pathology and recommendation by cardiothoracic with decide with the patient need chemotherapy or not. 4 COPD: Patient will be continue on DuoNeb and possible Pulmicort continue O2 and titrate dose higher. 5 PAD: Post left carotid endarterectomy has been doing well since. 6 history of breast cancer post left-sided mastectomy and chemotherapy has been in remission. 7 history of hypertension: Was on Coreg has been doing well. 8 anxiety and panic attack has been on lorazepam. 9 Empyema: Was still be on antibiotic till culture from the pleural fluid is done, infectious disease on consult, may need PICC line for intermediate teacher antibiotics. 10 mild anemia: Mostly iron deficiency continue iron supplement. 11 hypoglycemia: On diet control. 12 pain control: Patient had decrease ablation of the intercostal nerve L2 well 6 will continue patient on pain management as well Debility: We will advance PTOT in the next 48 hours. The above impression and plan of care have been discussed and directed by signing physician. Lindsay Aragon nurse practitioner acting as scribe for signing physician.
[2020-04-01 16:02] LABS: Basophils % (A) 0 %; Eosinophils % (A) 0 %; HCT 26.1 % (34.0-46.0); Hypochromasia Slight; Lymphocytes # (A) 1.4 k/uL (1.0-4.8); Lymphocytes % (A) 9 %; MCH 27.4 pg (25.0-35.0); MCHC 32.2 g/dL (31.0-37.0); MCV 85.2 fL (80.0-100.0); Mean Platelet Volume 6.1; Monocytes % (A) 6 %; Neutrophils # (A) 13.4 k/uL (1.3-7.7); Neutrophils % (A) 84 %; Platelet Count 494 k/uL (150-450); Poikilocytosis Slight; RBC 3.06 m/uL (3.80-5.40); RDW 14.6 % (11.5-15.5)
[2020-04-01 16:12] LABS: HGB 8.4 gm/dL (11.4-16.0)
--- NOTE | 2020-04-01 21:14 | PN ---
PROGRESS NOTE DATE OF SERVICE: 04/01/2020 REASON FOR FOLLOWUP: Left-sided empyema. INTERVAL HISTORY: The patient is currently afebrile. The patient is breathing comfortably on room air. Denies having any chest pain or shortness of breath. Minimal cough. No nausea, no vomiting, no abdominal pain or diarrhea. PHYSICAL EXAMINATION: Blood pressure 115/69 with a pulse of 83, temperature 98.1. She is 94% on room air. General description is an elderly female lying in bed in no distress. RESPIRATORY SYSTEM: Unlabored breathing with decreased breath sounds at the base. No wheeze. HEART: S1, S2. Regular rate and rhythm. ABDOMEN: Soft. No tenderness. LABS: Hemoglobin is 8.4, white count 16,000. Culture so far pending. DIAGNOSTIC IMPRESSION AND PLAN: Patient with left-sided empyema in this patient who is status post chest tube placement in this patient with recent lobectomy. Culture so far pending. The patient is currently covered with vancomycin and Azactam. CT did show organizing hematoma. CT Surgery is on the case. Monitor clinical course closely. MMODL / IJN: [id number] /
[2020-04-02] MEDS: AZTREONAM 2 GM in SODIUM CHLORIDE 0.9% 100 ML IVPB SCH ×3 (00:03→17:47)
[2020-04-02] MEDS: HYDROcodone/APAP 5-325MG 1 EACH TAB PO PRN (00:03)
[2020-04-02] MEDS: SODIUM CHLORIDE 0.9% 1,000 ML IV SCH ×2 (00:06→10:28)
[2020-04-02] MEDS: VANCOMYCIN 1,250 MG in SODIUM CHLORIDE 0.9% 250 ML IVPB SCH ×2 (03:03→15:10)
[2020-04-02 03:19] LABS: Basophils % (A) 0 %; Eosinophils # (A) 0.1 k/uL (0-0.7); Eosinophils % (A) 1 %; HCT 24.2 % (34.0-46.0); HGB 7.8 gm/dL (11.4-16.0); Hypochromasia Slight; Lymphocytes % (A) 13 %; MCH 27.4 pg (25.0-35.0); MCHC 32.2 g/dL (31.0-37.0); Mean Platelet Volume 6.3; Monocytes # (A) 0.9 k/uL (0-1.0); Monocytes % (A) 6 %; Neutrophils # (A) 12.4 k/uL (1.3-7.7); Neutrophils % (A) 79 %; Platelet Count 563 k/uL (150-450); Poikilocytosis Slight; RBC 2.85 m/uL (3.80-5.40); RDW 14.9 % (11.5-15.5); WBC 15.7 k/uL (3.8-10.6)
[2020-04-02 03:35] LABS: ALT 16 U/L (4-34); AST 17 U/L (14-36); African American GFR (CKD) >90 (>60 ml/min/1.73 sqM); Albumin 2.1 g/dL (3.5-5.0); Alkaline Phosphatase 69 U/L (38-126); Anion Gap 1 mmol/L; Blood Urea Nitrogen 14 mg/dL (7-17); Calcium 7.8 mg/dL (8.4-10.2); Carbon Dioxide 25 mmol/L (22-30); Chloride 107 mmol/L (98-107); Glucose 103 mg/dL (74-99); Non-African American GFR(CKD) >90 (>60 ml/min/1.73 sqM); Potassium 4.2 mmol/L (3.5-5.1); Sodium 133 mmol/L (137-145); Total Bilirubin 0.5 mg/dL (0.2-1.3); Total Protein 4.3 g/dL (6.3-8.2)
--- NOTE | 2020-04-02 07:30 | XR ---
EXAMINATION TYPE: XR chest 1V portable DATE OF EXAM: 04/02/2020 Comparison: 04/01/2020 Clinical History: 69-year-old female Postoperative left thoracotomy Findings: Right IJ CVC tip in the right atrium. 2 left-sided pleural drains are present. Extensive subcutaneous emphysema is noted. Extensive pleural-parenchymal opacity persists throughout the left lung. Possibl e loculated component along the lateral mid thorax may be slightly smaller. This is a semiupright exa m so fluid will be partially layering. No identifiable pneumothorax. Impression: Semiupright exam with 2 left-sided pleural drains and increased subcutaneous emphysema along the lef t chest wall. Extensive pleural-parenchymal opacities persist throughout the left hemithorax. A locul ated component along the lateral mid lung may be slightly decreased in size.
[2020-04-02] MEDS: IPRATROPIUM-ALBUTEROL 3 ML NEB INHALATION SCH ×3 (07:37→19:20)
[2020-04-02] MEDS: HEPARIN SODIUM,PORCINE 5,000 UNIT/ML 1 ML VIAL SQ SCH ×2 (08:49→17:48)
[2020-04-02] MEDS: MAGNESIUM OXIDE 400 MG TAB PO SCH (08:49)
[2020-04-02] MEDS: guaiFENesin 600 MG TABLET.ER PO SCH ×2 (08:50→20:01)
[2020-04-02] MEDS: carvediloL 6.25 MG TAB PO SCH ×2 (08:50→20:01)
[2020-04-02] MEDS: ZINC SULFATE 220 MG CAP PO SCH (08:50)
[2020-04-02] MEDS: CALCIUM CARB-VIT D 500 MG-5 MCG TAB PO SCH (08:51)
[2020-04-02] MEDS: LETROZOLE 2.5 MG TAB PO SCH (08:51)
[2020-04-02] MEDS ORDERED: MAGNESIUM HYDROXIDE 2,400 MG/10 ML CUP PO PRN (09:24)
--- NOTE | 2020-04-02 09:38 | P.PN ---
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 Previous medical history of squamous cell carcinoma of the left lung status post robotically assisted left upper lobectomy with mediastinal lymph node dissection and repair of left main bronchus on 03/13/2020 with pathology consistent with T2b, N0, M0, breast cancer status post left mastectomy in 2006 with chemo, previous tobacco dependence with cessation in February 2020, moderate chronic restrictive pulmonary disease with a recent FEV1 value 72% of predicted value, hypertension, left carotid stenosis status post left carotid endarterectomy in 2019, degenerative joint disease. POD #3 Left posterior lateral thoracotomy, mobilization of latissimus muscle flap, exploratory thoracotomy through the fourth intercostal space, closure of bronchopleural fistula, decortication of left pleural space and portion of the left lower lobe, cryoablation of intercostal nerves L2 through L6, reinforcement of the bronchopleural fistula closure and modification in the left pleural space with the latissimus dorsi flap. POD #4 Fiberoptic bronchoscopy, left chest tube placement. Postoperative acute blood loss anemia, expected, dilutional. The patient is currently sitting up in bed in no acute distress. She states pain is well controlled on current pain medication regimen, denies shortness of breath except after walking in hallway. Remains in normal sinus rhythm and hemodynamically stable. Left pleural chest tube and 2 YASMEEN drains continue to suction with air leak present in chest tube chamber with talking and coughing. She did ambulate in the hallway briefly yesterday. Hemaglobin dropped to 6.1 yesterday, received 2 units PRBCs with hgb up to 8.4 after, 7.8 this morning. Levaquin, vanco, aztreonam continue per infectious disease. Daughter has been updated multiple times daily and was on the phone this morning when rounding. Objective - Vital Signs Vital signs: Vital Signs Temp 98.1 F 04/02/20 08:00 Pulse 89 04/02/20 08:00 Resp 17 04/02/20 08:00 BP 143/67 04/02/20 08:00 Pulse Ox 91 L 04/02/20 08:00 Intake & Output 04/01/20 04/02/20 04/02/20 18:59 06:59 18:59 Intake Total 2268 1256 206 Output Total 845 895 440 Balance 1423 361 -234 Weight 68.9 kg Intake: IV 1677 1136 206 .9 NS flush 27 36 6 Albumin Human 5% 250 ml 500 In Empty Bag 1 bag @ 250 mls/hr IVPB ONCE ONE Rx#: [id number] Aztreonam 2 gm In Sodium 100 Chloride 0.9% 100 ml @ 33 .3 mls/hr IVPB Q8HR [facility] Rx#:[id number] Sodium Chloride 0.9% 1, 1100 200 000 ml @ 100 mls/hr IV . Q10H [facility] Rx#:[id number] Sodium Chloride 0.9% 1, 800 000 ml @ 40 mls/hr IV . Q24H [facility] Rx#:[id number] Vancomycin 1,250 mg In 250 Sodium Chloride 0.9% 250 ml @ 125 mls/hr IVPB Q12H [facility] Rx#:[id number] Oral 120 Blood Product 591 Rc As-1 Unit 310 [id number] Rc Pheresis As-3 Unit 281 [id number] Output: Chest Tube Drainage 625 250 Chest Tube Left 30 Chest tube #1 Posterior 10 Chest tube #2 Anterior 230 150 YASMEEN drain labeled #1 10 Posterior YASMEEN drain labeled #2 245 Anterior YASMEEN drains 100 100 Urine 220 645 440 Other: Voiding Method Indwelling Catheter Indwelling Catheter ABP, PAP, CO, CI - Last Documented Arterial Blood Pressure 141/53 - Constitutional General appearance: Present: cooperative, no acute distress - Respiratory Details: Lung sounds diminished bilaterally, left more than right with faint expiratory wheezes on the left. Respirations even, non-labored. Currently on room air with saturations in the low to mid 90s. Able to achieve 750 mL on her incentive spirometer. Left pleural chest tube present and connected to continuous wall suction, 150 mL serosanguinous output overnight, 370 mL in the last 24 hours, air leak present with talking and coughing. Two JPs present to continuous wall suction, 100 mL sanguinous drainage overnight, 200 mL in the last 24 hours. - Cardiovascular Details: S1/S2 present, regular rate and rhythm. Normal sinus rhythm on telemetry with rate in the 90s. No edema present. No calf pain or tenderness present. Antiembolism stockings, SCDs present. Right radial arterial line present, nonfunctioning. Right internal jugular central line present. - Gastrointestinal Gastrointestinal Comment(s): Abdomen soft, non-distended, non-tender. Active bowel sounds present in all 4 quadrants. Tolerating oral intake. No bowel movement - Genitourinary Genitourinary Comment(s): Macdonald present draining clear yellow urine, output 30-180 mL/hr overnight. - Integumentary Integumentary Comment(s): Skin is warm and dry. Left lateral thoracotomy incision clean, dry and approximated. No drainage or redness is present. Some swelling to her left posterior chest wall at her surgical site. Soft and nontender to palpate. - Neurologic Neurologic: Present: CNII-XII intact - Musculoskeletal Musculoskeletal: Present: gait normal, strength equal bilaterally - Psychiatric Psychiatric: Present: A&O x's 3, appropriate affect, intact judgment & insight - Allied health notes Allied health notes reviewed: nursing - Labs CBC & Chem 7: 04/02/20 03:14 04/02/20 03:14 Labs: Abnormal Lab Results - Last 24 Hours (Table) 03/29/20 04/01/20 04/01/20 Range/Units 14:16 09:14 15:40 WBC 16.4 H 16.0 H (3.8-10.6) k/uL RBC 2.31 L 3.06 L (3.80-5.40) m/uL Hgb 6.1 L* D 8.4 L D (11.4-16.0) gm/dL Hct 20.1 L 26.1 L (34.0-46.0) % MCHC 30.3 L (31.0-37.0) g/dL Plt Count 693 H 494 H (150-450) k/uL Neutrophils # 14.2 H 13.4 H (1.3-7.7) k/uL Sodium (137-145) mmol/L Creatinine (0.52-1.04) mg/dL Glucose (74-99) mg/dL Calcium (8.4-10.2) mg/dL Total Protein (6.3-8.2) g/dL Albumin (3.5-5.0) g/dL Crossmatch See Detail 04/02/20 04/02/20 Range/Units 03:14 03:14 WBC 15.7 H (3.8-10.6) k/uL RBC 2.85 L (3.80-5.40) m/uL Hgb 7.8 L (11.4-16.0) gm/dL Hct 24.2 L (34.0-46.0) % MCHC (31.0-37.0) g/dL Plt Count 563 H (150-450) k/uL Neutrophils # 12.4 H (1.3-7.7) k/uL Sodium 133 L (137-145) mmol/L Creatinine 0.43 L (0.52-1.04) mg/dL Glucose 103 H (74-99) mg/dL Calcium 7.8 L (8.4-10.2) mg/dL Total Protein 4.3 L (6.3-8.2) g/dL Albumin 2.1 L (3.5-5.0) g/dL Crossmatch Microbiology - Last 24 Hours (Table) 03/30/20 09:45 Anaerobic Culture - Preliminary Other - Other 03/30/20 09:45 Gram Stain - Final Other - Other Wound Culture - Final 03/29/20 12:08 Gram Stain - Preliminary Thoracic Fluid Body Fluid Culture - Preliminary - Imaging and Cardiology Chest x-ray: report reviewed, image reviewed Assessment and Plan Assessment: 1. Empyema left chest with bronchopleural fistula status post fiberoptic bronchoscopy with left chest tube placement, left posterior lateral thoracotomy, mobilization of latissimus muscle flap, exploratory thoracotomy through the fourth intercostal space, closure of bronchopleural fistula, decortication of left pleural space and portion of the left lower lobe, cryoablation of intercostal nerves L2 through L6, reinforcement of the bronchopleural fistula closure and modification in the left pleural space with the latissimus dorsi flap 2. Leukocytosis, secondary to empyema 3. New onset atrial fibrillation with RVR, currently normal sinus rhythm 4. Squamous cell carcinoma of the left lung status post robotically assisted left upper lobectomy with mediastinal lymph node dissection and repair of left main bronchus on 03/13/2020 with pathology consistent with T2b, N0, M0 5. Breast cancer status post left mastectomy in 2006 with chemo 6. Previous tobacco dependence with cessation in February 2020 7. Moderate chronic restrictive pulmonary disease with a recent FEV1 value 72% of predicted value 8. Hypertension 9. Left carotid stenosis status post left carotid endarterectomy in 2019 10. Degenerative joint disease 11. Postoperative acute blood loss anemia, expected, dilutional Plan: 1. Continue left pleural chest tube and left YASMEEN pleural tube to low continuous wall suction at -20 cm H2O. Continue to monitor for airleak resolution. Record strict inaccurate I's and O's. 2. Wean oxygen as tolerated, encourage use of her incentive spirometry 10 times every hour while awake. 3. Bronchodilator management per pulmonology 4. Atrial fibrillation management per cardiologyc, continue Coreg. No a nticoagulation at this time 5. Continue to monitor daily labs and chest x-rays. 6. GI and DVT prophylaxis. 7. Continue to reinforce the importance of continued smoking cessation. 8. Antibiotic management per infectious disease recommendations, currently on Levaquin, vancomycin and aztreonam for antibiotic coverage. Remains afebrile. Bronchial washings, wound culture negative. Thoracic fluid aerobic and anaerobic cultures still preliminary but gram stain reporting no growth 9. Increase activity as tolerated, out of bed for all meals. Physical and occupational therapy following. 10. Pain control per current medication regimen 11. Discontinue Macdonald catheter, may bladder scan and straight cath for greater than 300 mL residual 12. Discontinue arterial line 13. Keep in ICU for another 24 hours 14. More recommendations to follow based on patient's clinical course. Time with Patient: Greater than 30
--- NOTE | 2020-04-02 10:41 | P.PN ---
Subjective 69-year-old female one of Dr. 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 Patient also survival of rest cancer post left mastectomy in 2010 post chemotherapy also she is known to have history of carotid stenosis post left carotid endarterectomy in 2018 previous history of tobacco use she quit in February this year continue to have moderate COPD with FEV1 of 72 percentile history of hypertension hyperlipidemia. Patient left the hospital on March 17 after surgery was seen pulmonary and cardiothoracic surgery on regular basis she returned to the [facility] department shortly after midnight today because of worsening dyspnea and shortness of breath with significant tachycardia according to patient she become more symptomatic with rapid ventricular response on and off become more symptomatic causing worsening shortness of breath. Was seen and evaluated demurs department her white blood cell was 18.5 hemoglobin 10.5 hematocrit 32.9 d-dimer was 2.48 patient COVID 19 testing was negative she found to be in A. fib with RVR pulse 153 beats per minutes cardiology were called along with cardiothoracic patient chest x-ray showed pleural effusion and pneumothorax of the left side. She was started on Cardizem drip brought the pulse rate down no anticoagulation was started this point patient was on Plavix since her carotid surgery and no previous history of A. fib her pulse rate used to be well controlled on Coreg 6.25 mg twice a day in the past. Patient will be going to the OR by cardiothoracic and she will have more repair along with chest tube as well. 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 Patient will be back to the ICU after surgery 03/31: Patient evaluated in the ICU this morning, sitting up in the bedside loni rodriguez, in no acute distress. She is postop day #1 status post left posterior lateral thoracotomy, closure of the bronchopleural fistula, and cryoablation of the intercostal nerves. Patient still has 2 left-sided chest tubes in place, she continues on Levaquin, vancomycin, and Aztreonam. Cultures are still pending, infectious disease on consult. Repeat chest x-ray shows residual left pneumothorax and left perihilar consolidation. Vital signs are stable, she is afebrile 98.0, heart rate is 90, respiratory 23, temperature 128/57, she's 95% on 3 L via nasal cannula. 04/01: Patient evaluated in the ICU, sitting up in the bedside chair. Nurse states she went to stand patient up to get her out of bed and she had a syncople episode. She was noted to be hypotensive 63/37 and tachycardic with a heart rate of 111. Stat CBC and repeat chest x-ray ordered, patient placed back in bed blood, pressure did come up to 99/47, heart rate 90. Hemoglobin 7.7, platelets 729, sodium 130, creatinine 0.51, BUN 16. Left pleural chest tube in place, left pleural YASMEEN drain in place and continues to drain serosanguineous drainage, left lateral chest YASMEEN drains [address] with bulb suction. Repeat chest x-ray showed some improvement of aeration throughout the remaining left lung post lobectomy, pneumothorax remains. 04/02: Patient remains in the ICU. Patient had chest CT yesterday which showed chest wall herniation causing increase opacity in the left midlung at the third through fourth intercostal space. Large size hematoma in the posterior lateral lower thoracic chest and subcutaneous tissue. Patient's hemoglobin dropped to 6.1 she did receive 2 units of packed red blood cells, hemoglobin went up to 8.4 after the transfusion and dropped to 7.8 this morning. Clinically patient looks much better today, reports she is feeling much better as well. She is off supplemental oxygen and currently 94%, continue to use incentive spirometer, chest tubes remain in place. Objective - Vital Signs Vital signs: Vital Signs Temp 98.8 F 04/02/20 04:00 Pulse 84 04/02/20 07:48 Resp 19 04/02/20 07:00 BP 136/60 04/02/20 07:00 Pulse Ox 98 04/02/20 07:00 Intake & Output 04/01/20 04/02/20 04/02/20 18:59 06:59 18:59 Intake Total 2268 1256 103 Output Total 845 895 300 Balance 1423 361 -197 Weight 68.9 kg Intake: IV 1677 1136 103 .9 NS flush 27 36 3 Albumin Human 5% 250 ml 500 In Empty Bag 1 bag @ 250 mls/hr IVPB ONCE ONE Rx#: [id number] Aztreonam 2 gm In Sodium 100 Chloride 0.9% 100 ml @ 33 .3 mls/hr IVPB Q8HR [facility] Rx#:[id number] Sodium Chloride 0.9% 1, 1100 100 000 ml @ 100 mls/hr IV . Q10H [facility] Rx#:[id number] Sodium Chloride 0.9% 1, 800 000 ml @ 40 mls/hr IV . Q24H [facility] Rx#:[id number] Vancomycin 1,250 mg In 250 Sodium Chloride 0.9% 250 ml @ 125 mls/hr IVPB Q12H [facility] Rx#:[id number] Oral 120 Blood Product 591 Rc As-1 Unit 310 [id number] Rc Pheresis As-3 Unit 281 [id number] Output: Chest Tube Drainage 625 250 Chest Tube Left 30 Chest tube #1 Posterior 10 Chest tube #2 Anterior 230 150 YASMEEN drain labeled #1 10 Posterior YASMEEN drain labeled #2 245 Anterior YASMEEN drains 100 100 Urine 220 645 300 Other: Voiding Method Indwelling Catheter Indwelling Catheter ABP, PAP, CO, CI - Last Documented Arterial Blood Pressure 141/53 - Exam General Appearance: Alert, cooperative, mild distress Neck HEENT: Supple, no lymphadenopathy, no thyroid enlargement, no carotid bruits. Lungs: Diminished breath on the left compared to the right Chest Wall: Left-sided chest tubes in place Heart: Irregular rate and rhythm, S1, S2 normal, no murmur, rub or gallop. Back: Symmetric, no curvature, ROM normal, no CVA tenderness. Abdomen: Soft, non-tender, bowel sounds active all four quadrants, no masses, no organomegaly. Extremities: Extremities normal, atraumatic, no cyanosis or edema. Pulses: 2+ and symmetric. Skin: Skin color, texture, tugor normal, no rashes or lesions. Neurologic: Alert oriented x3 cranial nerves II through XII intact, no motor deficit, no abnormal balance or gait. - Labs CBC & Chem 7: 04/02/20 03:14 04/02/20 03:14 Labs: Abnormal Lab Results - Last 24 Hours (Table) 03/29/20 04/01/20 04/01/20 Range/Units 14:16 08:34 09:14 WBC 16.4 H (3.8-10.6) k/uL RBC 2.31 L (3.80-5.40) m/uL Hgb 6.1 L* D (11.4-16.0) gm/dL Hct 20.1 L (34.0-46.0) % MCHC 30.3 L (31.0-37.0) g/dL Plt Count 693 H (150-450) k/uL Neutrophils # 14.2 H (1.3-7.7) k/uL Sodium (137-145) mmol/L Creatinine (0.52-1.04) mg/dL Glucose (74-99) mg/dL POC Glucose (mg/dL) 179 H (75-99) mg/dL Calcium (8.4-10.2) mg/dL Total Protein (6.3-8.2) g/dL Albumin (3.5-5.0) g/dL Crossmatch See Detail 04/01/20 04/02/20 04/02/20 Range/Units 15:40 03:14 03:14 WBC 16.0 H 15.7 H (3.8-10.6) k/uL RBC 3.06 L 2.85 L (3.80-5.40) m/uL Hgb 8.4 L D 7.8 L (11.4-16.0) gm/dL Hct 26.1 L 24.2 L (34.0-46.0) % MCHC (31.0-37.0) g/dL Plt Count 494 H 563 H (150-450) k/uL Neutrophils # 13.4 H 12.4 H (1.3-7.7) k/uL Sodium 133 L (137-145) mmol/L Creatinine 0.43 L (0.52-1.04) mg/dL Glucose 103 H (74-99) mg/dL POC Glucose (mg/dL) (75-99) mg/dL Calcium 7.8 L (8.4-10.2) mg/dL Total Protein 4.3 L (6.3-8.2) g/dL Albumin 2.1 L (3.5-5.0) g/dL Crossmatch Microbiology - Last 24 Hours (Table) 03/30/20 09:45 Anaerobic Culture - Preliminary Other - Other 03/30/20 09:45 Gram Stain - Final Other - Other Wound Culture - Final 03/29/20 12:08 Gram Stain - Preliminary Thoracic Fluid Body Fluid Culture - Preliminary Assessment and Plan Plan: 1 new onset of A. fib with RVR: Patient is now off Cardizem drip, cardiology on consult, pulse rate controlled on Coreg 6.25mg BID 2 large left-sided pleural effusion and pneumothorax: The patient had empyema of the left chest along with broncho-pleural fistula post exploratory thoracotomy with ablation of the intercostal nerves 3 squama cell carcinoma of the left upper lobe: Post robotic-assisted left upper lobectomy based on pathology and recommendation by cardiothoracic with decide with the patient need chemotherapy or not. 4 COPD: Patient will be continue on DuoNeb and possible Pulmicort 5 PAD: Post left carotid endarterectomy has been doing well since. 6 history of breast cancer post left-sided mastectomy and chemotherapy has been in remission. 7 history of hypertension: Was on Coreg has been doing well. 8 anxiety and panic attack has been on lorazepam. 9 Empyema: Was still be on antibiotic till culture from the pleural fluid is done, infectious disease on consult, may need PICC line for assisted antibiotics. 10 postoperative acute blood loss anemia: Status post blood transfusion 11 hypoglycemia: On diet control. 12 pain control: Patient had decrease ablation of the intercostal nerve L2 well 6 will continue patient on pain management as well The above impression and plan of care have been discussed and directed by signing physician. Lindsay Aragon nurse practitioner acting as scribe for signing physician.
--- NOTE | 2020-04-02 11:01 | P.PN ---
Subjective Progress Note Date: 04/02/20 Principal diagnosis: Large left pneumothorax, new onset atrial fibrillation On 03/31/2020 the patient is being seen for a follow-up. 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 The patient was taken to the operating room approximately 2 weeks ago and the patient underwent a robotic-assisted left upper lobe resection. Postop, the patient was discharged home to be readmitted back to the hospital rule out empyema and air-fluid levels in the left chest along with a new onset atrial fibrillation and elevated white cell count. 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 A lesser the chest tube was placed at a time and drained turbid fluid. Gram stain was positive for gram-negative rods. Subsequently, the patient was taken back to the operating room and the patient underwent a thoracotomy and closure of a bronco pleural fistula with a muscle flap. The patient underwent a left posterior lateral thoracotomy, mobilization of the latissimus muscle flap, exploratory thoracotomy through the fourth int ercostal space, closure of the bronchopleural fistula and decortication of the left pleural space and portion of the left lower lobe and cryo-ablation of the intercostal nerves II through through L6 was done and reinforcement of the fistula was done and modification of the left pleural space with latissimus dorsi flap. The patient intraoperatively was found to have an empyema of the left chest as mentioned. Postop, the patient was extubated and the patient was brought back to the intensive care unit for further monitoring. She was placed on oxygen at 3 L about 2 by nasal cannula. There was a left-sided chest tube in place with a Pleur-evac and there were also 2 YASMEEN drains within the pleural space. The patient was being covered with broad-spectrum antibiotics including a combination of Levaquin, aztreonam and vancomycin pending further cultures from the pleural space. The patient was on tramadol 50 mg every 6 hours when necessary basis for pain control. The patient is also on [place] 53 25 one tablet every 4-6 hours on a when necessary basis for pain control. The patient recovered from the atrial fibrillation and the patient is currently in sinus rhythm. Cardizem drip has been discontinued and the patient was placed on Coreg 6.25 mg by mouth twice a day. She is on heparin subcu for DVT prophylaxis. IV fluids running at 40 mL an hour of normal saline. Chest x-ray revealed a pleural air fluid levels/pneumothorax and the left upper chest area measuring 2.1 cm in size. A small left-sided pleural effusion/consolidation of the left lung base. There were 2 drains within the pleural space in addition to surgical changes are thoracotomy. The patient has a right IJ triple-lumen catheter in place. Liver output, the chest tube has put out approximately 20 mL over the p ast 24 hours and there is no evidence of any air leak. As for the YASMEEN drains,one in the pleural space and drained approximately 450 over the past 24 hours. Whereas the other YASMEEN drains are present in her lap and drained 60 mL and 20 mL over the past 12 hours. She is awake and alert. She is using incentive spirometer. She is afebrile. Hemodynamically stable. She is on no pressors. IV fluids are running at the rate of 40 mL an hour. She is tolerating her diet. Today's evaluation of 04/01/2020, the patient is being seen for a follow-up. The patient is doing essentially the same as yesterday. She is using incentive spirometer and she is pulling approximately 800 mL on her I asked. The patient had a follow-up chest x-ray today that showed no major interval change compared to yesterday's chest x-ray. I do not appreciate any pneumothorax. All of the drains in the tubes are still in place. Note that the patient has a regular posterior chest to talk with of which has been minimal in the order of 10 mL over the past 24 hours and it's still has some minimal amount of intermittent air leak. The YASMEEN drains in the flap is in order of 250 mL in the anterior pain and 125 in the posterior drain over the past 8 hours. His another third drain in the pleural space output of which is still 120 mL over the past 24 hours. Cultures still pending for now. There is gram-negative bacteria. The patient remains on a combination of Levaquin, aztreonam and vancomycin. Surgical wound site is dry clean and intact. The patient has some swelling along the left posterior chest area at the surgical sites. No hematoma collection. She has a congested cough. Unable to bring up much sputum. She is afebrile. Her white cell count has dropped and the count is down to 15. The patient remains on normal saline at the rate of 100 mL an hour. He was having a low urine output in the order of 10-20 mL yesterday and this is improved with the increase the fluid rates. Creatinine is stable for now. Her pain is under adequate control and she is on [place]. She has received cryoablation. She is postop day #2. Cardiac rhythm is sinus. There is no atrial fibrillation. The patient is off all drips and she is utilizing Coreg for rate control. The patient is seen today 04/02/2020 in follow-up in the intensive care unit. She is currently sitting up in bed. Awake and alert in no acute distress. She is maintaining good O2 saturations in the 90s on room air now. 0.9 normal sitting in 100 ML's per hour. She is postoperative day #3 of a left thoracotomy with deep decortication and muscle flap. Computed tomography scan of the chest yesterday revealed postsurgical changes of the left lung. 2 left-sided chest tubes in pleural spaces containing a small amount of residual fluid. There is a chest wall herniation causing increased opacity in the left midlung at the third to fourth intercostal space. Note is made of moderate to large sided organizing hematoma in the posterior lateral left thorax thoracic chest wall and subcutaneous tissue. Today's chest x-ray reveals chest tubes in place. Extensive pleural parenchymal opacities persist throughout the left hemithorax. A loculated component along the lateral mid lung may be slightly decreased in size. She is status post 2 units of packed red blood cells this admission. Current hemoglobin 7.8. White count 15.7. Sodium 133. Potassium 4.2. Creatinine 0.43. She remains on bronchodilators, antibiotics in the form of aztreonam, vancomycin, Levaquin. Objective - Vital Signs Vital signs: Vital Signs Temp 98.1 F 04/02/20 08:00 Pulse 96 04/02/20 10:00 Resp 16 04/02/20 10:00 BP 127/79 04/02/20 10:00 Pulse Ox 94 L 04/02/20 10:00 Intake & Output 04/01/20 04/02/20 04/02/20 18:59 06:59 18:59 Intake Total 2268 1256 372 Output Total 845 895 580 Balance 1423 361 -208 Weight 68.9 kg Intake: IV 1677 1136 372 .9 NS flush 27 36 12 Albumin Human 5% 250 ml 500 In Empty Bag 1 bag @ 250 mls/hr IVPB ONCE ONE Rx#: [id number] Aztreonam 2 gm In Sodium 100 100 Chloride 0.9% 100 ml @ 33 .3 mls/hr IVPB Q8HR MALA Rx#:[id number] Sodium Chloride 0.9% 1, 1100 260 000 ml @ 30 mls/hr IV . Q24H MALA Rx#:[id number] Sodium Chloride 0.9% 1, 800 000 ml @ 40 mls/hr IV . Q24H MALA Rx#:[id number] Vancomycin 1,250 mg In 250 Sodium Chloride 0.9% 250 ml @ 125 mls/hr IVPB Q12H MALA Rx#:[id number] Oral 120 Blood Product 591 Rc As-1 Unit 310 [id number] Rc Pheresis As-3 Unit 281 [id number] Output: Chest Tube Drainage 625 250 Chest Tube Left 30 Chest tube #1 Posterior 10 Chest tube #2 Anterior 230 150 YASMEEN drain labeled #1 10 Posterior YASMEEN drain labeled #2 245 Anterior YASMEEN drains 100 100 Urine 220 645 580 Other: Voiding Method Indwelling Catheter Indwelling Catheter Indwelling Catheter ABP, PAP, CO, CI - Last Documented Arterial Blood Pressure 141/53 - Exam GENERAL EXAM: Alert, pleasant 69-year-old female patient, on room air, fairly comfortable in no apparent distress. HEAD: Normocephalic. EYES: Normal reaction of pupils, equal size. NOSE: Clear with pink turbinates. THROAT: No erythema or exudates. NECK: No masses, no JVD. CHEST: Left-sided chest tube in place, pigtail catheter in place, [address]. LUNGS: Equal air entry with bilateral scattered rhonchi more so on the left lung CVS: S1 and S2 normal with no audible murmur, regular rhythm. ABDOMEN: No hepatosplenomegaly, normal bowel sounds, no guarding or rigidity. SPINE: No scoliosis or deformity SKIN: No rashes CENTRAL NERVOUS SYSTEM: No focal deficits, tone is normal in all 4 extremities. EXTREMITIES: There is no peripheral edema. No clubbing, no cyanosis. Peripheral pulses are intact. - Labs CBC & Chem 7: 04/02/20 03:14 04/02/20 03:14 Labs: Abnormal Lab Results - Last 24 Hours (Table) 03/29/20 04/01/20 04/02/20 Range/Units 14:16 15:40 03:14 WBC 16.0 H 15.7 H (3.8-10.6) k/uL RBC 3.06 L 2.85 L (3.80-5.40) m/uL Hgb 8.4 L D 7.8 L (11.4-16.0) gm/dL Hct 26.1 L 24.2 L (34.0-46.0) % Plt Count 494 H 563 H (150-450) k/uL Neutrophils # 13.4 H 12.4 H (1.3-7.7) k/uL Sodium (137-145) mmol/L Creatinine (0.52-1.04) mg/dL Glucose (74-99) mg/dL Calcium (8.4-10.2) mg/dL Total Protein (6.3-8.2) g/dL Albumin (3.5-5.0) g/dL Crossmatch See Detail 04/02/20 Range/Units 03:14 WBC (3.8-10.6) k/uL RBC (3.80-5.40) m/uL Hgb (11.4-16.0) gm/dL Hct (34.0-46.0) % Plt Count (150-450) k/uL Neutrophils # (1.3-7.7) k/uL Sodium 133 L (137-145) mmol/L Creatinine 0.43 L (0.52-1.04) mg/dL Glucose 103 H (74-99) mg/dL Calcium 7.8 L (8.4-10.2) mg/dL Total Protein 4.3 L (6.3-8.2) g/dL Albumin 2.1 L (3.5-5.0) g/dL Crossmatch Microbiology - Last 24 Hours (Table) 03/30/20 09:45 Anaerobic Culture - Preliminary Other - Other 03/30/20 09:45 Gram Stain - Final Other - Other Wound Culture - Final 03/29/20 12:08 Gram Stain - Preliminary Thoracic Fluid Body Fluid Culture - Preliminary Assessment and Plan Assessment: 1 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 Status post Left posterior lateral thoracotomy, mobilization of latissimus muscle flap, exploratory thoracotomy through the fourth interspace, closure of bronchopleural fistula, decortication of left pleural space and portion of the left lower lobe, cryoablation of intercostal nerves L2 through L6, reinforcement of the bronchopleural fistula closure and modification in the left pleural space with the latissimus dorsi flap. Post operative day #3. Remains on antibiotics in the form of vancomycin, aztreonam and Levaquin Computed tomography scan of the chest 04/01/2000 revealed postsurgical changes of the left lung. 2 left-sided chest tubes in pleural spaces containing a small amount of residual fluid. There is a chest wall herniation causing increased opacity in the left midlung at the third to fourth intercostal space. Note is made of moderate to large sided organizing hematoma in the posterior lateral left thorax thoracic chest wall and subcutaneous tissue. Today's chest x-ray reveals chest tubes in place. Extensive pleural parenchymal opacities persist throughout the left hemithorax. A loculated component along the lateral mid lung may be slightly decreased in size. 2 Bronchopleural fistula, left upper lobe apical stump status post fiberoptic bronchoscopy, left chest tube placement. Postoperative day #4 3 Squamous cell carcinoma of the left lung, status post robotically assisted left upper lobectomy with mediastinal lymph node dissection on 03/13/2020. 4 New-onset atrial fibrillation requiring Cardizem drip, currently in sinus rhythm 5 Moderate to severe chronic obstructive pulmonary disease with FEV1 value 72% of predicted 6 History of breast cancer status post left mastectomy 7 Carotid artery disease status post left carotid endarterectomy 8 History of chronic tobacco dependence 9 History of degenerative joint disease Plan: The patient was seen and evaluated by Dr. Renteria Computed tomography scan of the chest, chest x-ray and labs reviewed Doing well on room air with O2 saturations in the 90s Continue antibiotics and bronchodilators Encouraged increased use of the incentive spirometer and cough and deep breathing exercises Follow-up chest x-ray and labs in the a.m. We will continue to follow and make further recommendations based on her clinical status I, the cosigning physician, performed a history & physical examination of the patient. Lungs sounds with bilateral scattered rhonchi left greater than right. Maintaining good O2 saturations in the 90s on room air. I discussed the assessment and plan of care with my nurse practitioner, Arminda Owen. I attest to the above note as dictated by her.
[2020-04-02] MEDS: LEVOFLOXACIN 750 MG TAB PO SCH (15:10)
[2020-04-02] MEDS: SENNOSIDES-DOCUSATE SODIUM 1 EACH TAB PO SCH (20:01)
--- NOTE | 2020-04-02 23:08 | PN ---
PROGRESS NOTE DATE OF SERVICE: 04/02/2020 REASON FOR FOLLOW UP: Empyema. INTERVAL HISTORY: The patient is currently afebrile. The patient is breathing comfortably. However, she has more coughing today with occasional sputum. No chest pain. No nausea, no vomiting. No abdominal pain. No diarrhea. PHYSICAL EXAMINATION: Blood pressure 99/71 with a pulse of 93, temperature 98.1. She is 92% on room air. General description: The patient is an elderly female up in the bed in no distress. Respiratory system: Unlabored breathing. Coarse breath sounds bilaterally. No wheeze. Heart S1, S2. Regular rate and rhythm. ABDOMEN: Soft, no tenderness. LAB DATA: Hemoglobin 7.1, white count 15.7, BUN of 14, creatinine 0.43. DIAGNOSTIC IMPRESSION AND PLAN: Patient with left-sided empyema in this patient status post left-sided chest tube placement times two. The gram stain did show some gram-negative. However the culture has been negative so far with no gram-positive. Vancomycin will be discontinued. Continue with Azactam, Levaquin and monitor clinical course closely. Continue supportive care. MMODL / IJN: [id number] /
[2020-04-03] MEDS: AZTREONAM 2 GM in SODIUM CHLORIDE 0.9% 100 ML IVPB SCH ×3 (00:33→16:11)
[2020-04-03] MEDS: HEPARIN SODIUM,PORCINE 5,000 UNIT/ML 1 ML VIAL SQ SCH ×3 (00:34→16:11)
[2020-04-03 03:55] LABS: Basophils # (A) 0.1 k/uL (0-0.2); Basophils % (A) 0 %; Eosinophils # (A) 0.2 k/uL (0-0.7); Eosinophils % (A) 1 %; HCT 24.4 % (34.0-46.0); HGB 7.9 gm/dL (11.4-16.0); Hypochromasia Slight; Lymphocytes # (A) 1.7 k/uL (1.0-4.8); Lymphocytes % (A) 12 %; MCH 27.5 pg (25.0-35.0); MCHC 32.5 g/dL (31.0-37.0); MCV 84.4 fL (80.0-100.0); Mean Platelet Volume 6.3; Monocytes # (A) 1.1 k/uL (0-1.0); Monocytes % (A) 8 %; Neutrophils % (A) 77 %; Platelet Count 626 k/uL (150-450); RBC 2.88 m/uL (3.80-5.40); RDW 14.8 % (11.5-15.5); WBC 14.2 k/uL (3.8-10.6)
[2020-04-03 04:11] LABS: African American GFR (CKD) >90 (>60 ml/min/1.73 sqM); Anion Gap 0 mmol/L; Blood Urea Nitrogen 8 mg/dL (7-17); Carbon Dioxide 29 mmol/L (22-30); Chloride 104 mmol/L (98-107); Glucose 110 mg/dL (74-99); Non-African American GFR(CKD) >90 (>60 ml/min/1.73 sqM); Potassium 3.9 mmol/L (3.5-5.1); Sodium 133 mmol/L (137-145)
[2020-04-03] MEDS ORDERED: POTASSIUM CHLORIDE ER 20 MEQ TAB.ER PO STA (04:15)
[2020-04-03] MEDS ORDERED: ACETAMINOPHEN TAB 325 MG TAB PO PRN (06:26)
--- NOTE | 2020-04-03 07:08 | P.PN ---
Subjective Progress Note Date: 04/03/20 Principal diagnosis: Paroxysmal atrial fibrillation This is a 69-year-old female patient who is status post recent left upper lobectomy who we consulted to see her for brief episode of paroxysmal atrial fibrillation. The patient was seen this morning. Last night she did have multiple episodes of A. fib with RVR and currently she has been in normal sinus mechanism with a hear t rate in the 90s and elevated blood pressure. I'm going to increase the dose of Coreg to 12.5 mg by mouth twice a day. She is to have the chest tube. The bleeding has improved. The hemoglobin has been stable. We'll continue following up with her at this point. Objective - Vital Signs Vital signs: Vital Signs Temp 97.8 F 04/03/20 00:00 Pulse 86 04/03/20 06:00 Resp 15 04/03/20 06:00 BP 145/83 04/03/20 06:00 Pulse Ox 97 04/03/20 06:00 Intake & Output 04/02/20 04/03/20 04/03/20 18:59 06:59 18:59 Intake Total 552 450 Output Total 1030 1350 Balance -478 -900 Weight 69.8 kg Intake: IV 552 450 .9 NS flush 12 Aztreonam 2 gm In Sodium 100 Chloride 0.9% 100 ml @ 33 .3 mls/hr IVPB Q8HR [facility] Rx#:[id number] Sodium Chloride 0.9% 1, 440 450 000 ml @ 30 mls/hr IV . Q24H [facility]A Rx#:[id number] Output: Chest Tube Drainage 325 Chest tube #2 Anterior 150 YASMEEN drains 175 Urine 1030 1025 Other: Voiding Method Indwelling Catheter Toilet Bedside Commode Incontinent # Voids 2 1 ABP, PAP, CO, CI - Last Documented Arterial Blood Pressure 141/53 - Constitutional General appearance: Present: no acute distress - Respiratory Respiratory: bilateral: diminished - Cardiovascular Rhythm: regular Heart sounds: normal: S1, S2 - Labs CBC & Chem 7: 04/03/20 03:48 04/03/20 03:48 Labs: Abnormal Lab Results - Last 24 Hours (Table) 04/03/20 04/03/20 Range/Units 03:48 03:48 WBC 14.2 H (3.8-10.6) k/uL RBC 2.88 L (3.80-5.40) m/uL Hgb 7.9 L (11.4-16.0) gm/dL Hct 24.4 L (34.0-46.0) % Plt Count 626 H (150-450) k/uL Neutrophils # 11.0 H (1.3-7.7) k/uL Monocytes # 1.1 H (0-1.0) k/uL Sodium 133 L (137-145) mmol/L Creatinine 0.39 L (0.52-1.04) mg/dL Glucose 110 H (74-99) mg/dL Calcium 8.0 L (8.4-10.2) mg/dL Microbiology - Last 24 Hours (Table) 03/29/20 12:08 Anaerobic Culture - Final Thoracic Fluid 03/29/20 12:08 Gram Stain - Final Thoracic Fluid Body Fluid Culture - Final Assessment and Plan Assessment: Assessment #1 paroxysmal atrial fibrillation #2 status post recent left upper lobectomy #3 left pleural effusion and status post chest tube #4 carotid disease #5 multiple comorbid conditions Plan #1 increase the dose of Coreg #2 continue monitor the hemoglobin n #3 follow-up with the patient
[2020-04-03] MEDS: carvediloL 12.5 MG TAB PO SCH ×2 (07:13→18:45)
[2020-04-03] MEDS: IPRATROPIUM-ALBUTEROL 3 ML NEB INHALATION SCH ×3 (07:21→19:57)
--- NOTE | 2020-04-03 07:58 | XR ---
EXAMINATION TYPE: XR chest 1V portable DATE OF EXAM: 04/03/2020 COMPARISON: 04/02/2020 INDICATION: Postthoracotomy TECHNIQUE: Single frontal view of the chest is obtained. FINDINGS: The heart size is normal. The pulmonary vasculature is normal. There is opacification through the left mid lung field. Multiple surgical clips are present laterally . Subcutaneous emphysema is present. Pneumothorax is not identified. There is improving infiltrate th rough the residual left lung. Right central venous catheter is present with the tip in the superior vena cava right atrial junction . 2 right-sided catheters are present. IMPRESSION: 1. Postsurgical changes. There is a rounded opacity within the left peripheral midlung. 2. Improving infiltrates through the left lung field. No pneumothorax is evident.
--- NOTE | 2020-04-03 08:27 | P.PN ---
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 Previous medical history of squamous cell carcinoma of the left lung status post robotically assisted left upper lobectomy with mediastinal lymph node dissection and repair of left main bronchus on 03/13/2020 with pathology consistent with T2b, N0, M0, breast cancer status post left mastectomy in 2006 with chemo, previous tobacco dependence with cessation in February 2020, moderate chronic restrictive pulmonary disease with a recent FEV1 value 72% of predicted value, hypertension, left carotid stenosis status post left carotid endarterectomy in 2019, degenerative joint disease. POD #4 Left posterior lateral thoracotomy, mobilization of latissimus muscle flap, exploratory thoracotomy through the fourth intercostal space, closure of bronchopleural fistula, decortication of left pleural space and portion of the left lower lobe, cryoablation of intercostal nerves L2 through L6, reinforcement of the bronchopleural fistula closure and modification in the left pleural space with the latissimus dorsi flap. POD #5 Fiberoptic bronchoscopy, left chest tube placement. Postoperative acute blood loss anemia, expected, dilutional. The patient is currently sitting up in bed in no acute distress. She states pain is well controlled on current pain medication regimen, has taken no narcotics in >24 hours, denies shortness of breath except after walking in hallway. Went into AFib w/ RVR last night, back in NSR early this morning, Coreg increased by Dr. Rubin this morning, currently back in AFib. Left pleural chest tube and 2 YASMEEN drains continue to suction with continuous air leak present in chest tube chamber. She has ambulated in the hallway several times without difficulty. Levaquin, aztreonam continue per infectious disease. Daughter has been updated multiple times daily. Objective - Vital Signs Vital signs: Vital Signs Temp 97.8 F 04/03/20 00:00 Pulse 86 04/03/20 07:33 Resp 13 04/03/20 07:00 BP 126/66 04/03/20 07:00 Pulse Ox 96 04/03/20 07:00 Intake & Output 04/02/20 04/03/20 04/03/20 18:59 06:59 18:59 Intake Total 552 450 Output Total 1030 1350 Balance -478 -900 Weight 69.8 kg Intake: IV 552 450 .9 NS flush 12 Aztreonam 2 gm In Sodium 100 Chloride 0.9% 100 ml @ 33 .3 mls/hr IVPB Q8HR [facility] Rx#:[id number] Sodium Chloride 0.9% 1, 440 450 000 ml @ 30 mls/hr IV . Q24H [facility] Rx#:[id number] Output: Chest Tube Drainage 325 Chest tube #2 Anterior 150 YASMEEN drains 175 Urine 1030 1025 Other: Voiding Method Indwelling Catheter Toilet Bedside Commode Incontinent # Voids 2 1 ABP, PAP, CO, CI - Last Documented Arterial Blood Pressure 141/53 - Constitutional General appearance: Present: cooperative, no acute distress - Respiratory Details: Lung sounds diminished bilaterally, faint expiratory wheezes on the left. Respirations even, non-labored. Currently on room air with saturations in the mid 90s. Able to achieve 750 mL on her incentive spirometer. Left pleural chest tube present and connected to continuous wall suction, 100 mL serosanguinous output overnight, 300 mL in the last 24 hours, continuous air leak present. Two JPs present to continuous wall suction, 75 mL sanguinous qing inage overnight, 200 mL in the last 24 hours. - Cardiovascular Details: S1/S2 present, irregular rate and rhythm, atrial fibrillation on telemetry. No edema present. No calf pain or tenderness present. Antiembolism stockings, SCDs present. Right internal jugular central line present. - Gastrointestinal Gastrointestinal Comment(s): Abdomen soft, non-distended, non-tender. Active bowel sounds present in all 4 quadrants. Tolerating oral intake. Positive small bowel movement per patient - Genitourinary Genitourinary Comment(s): Macdonald discontinued yesterday. Patient has been able to void and is incontinent at night. - Integumentary Integumentary Comment(s): Skin is warm and dry. Left lateral thoracotomy incision clean, dry and approximated. No drainage or redness is present. Some swelling to her left posterior chest wall at her surgical site. Soft and nontender to palpate. - Neurologic Neurologic: Present: CNII-XII intact - Musculoskeletal Musculoskeletal: Present: gait normal, strength equal bilaterally - Psychiatric Psychiatric: Present: A&O x's 3, appropriate affect, intact judgment & insight - Allied health notes Allied health notes reviewed: nursing - Labs CBC & Chem 7: 04/03/20 03:48 04/03/20 03:48 Labs: Abnormal Lab Results - Last 24 Hours (Table) 04/03/20 04/03/20 Range/Units 03:48 03:48 WBC 14.2 H (3.8-10.6) k/uL RBC 2.88 L (3.80-5.40) m/uL Hgb 7.9 L (11.4-16.0) gm/dL Hct 24.4 L (34.0-46.0) % Plt Count 626 H (150-450) k/uL Neutrophils # 11.0 H (1.3-7.7) k/uL Monocytes # 1.1 H (0-1.0) k/uL Sodium 133 L (137-145) mmol/L Creatinine 0.39 L (0.52-1.04) mg/dL Glucose 110 H (74-99) mg/dL Calcium 8.0 L (8.4-10.2) mg/dL Microbiology - Last 24 Hours (Table) 03/29/20 12:08 Anaerobic Culture - Final Thoracic Fluid 03/29/20 12:08 Gram Stain - Final Thoracic Fluid Body Fluid Culture - Final - Imaging and Cardiology Chest x-ray: report reviewed, image reviewed Assessment and Plan Assessment: 1. Empyema left chest with bronchopleural fistula status post fiberoptic bronchoscopy with left chest tube placement, left posterior lateral thoracotomy, mobilization of latissimus muscle flap, exploratory thoracotomy through the fourth intercostal space, closure of bronchopleural fistula, decortication of left pleural space and portion of the left lower lobe, cryoablation of int ercostal nerves L2 through L6, reinforcement of the bronchopleural fistula closure and modification in the left pleural space with the latissimus dorsi flap 2. Leukocytosis, secondary to empyema 3. New onset atrial fibrillation with RVR 4. Squamous cell carcinoma of the left lung status post robotically assisted left upper lobectomy with mediastinal lymph node dissection and repair of left main bronchus on 03/13/2020 with pathology consistent with T2b, N0, M0 5. Breast cancer status post left mastectomy in 2006 with chemo 6. Previous tobacco dependence with cessation in February 2020 7. Moderate chronic restrictive pulmonary disease with a recent FEV1 value 72% of predicted value 8. Hypertension 9. Left carotid stenosis status post left carotid endarterectomy in 2019 10. Degenerative joint disease 11. Postoperative acute blood loss anemia, expected, dilutional Plan: 1. Continue left pleural chest tube and left YASMEEN pleural tube to low continuous wall suction at -20 cm H2O. Continue to monitor for airleak resolution. Record strict inaccurate I's and O's. 2. Wean oxygen as tolerated, encourage use of her incentive spirometry 10 times every hour while awake. 3. Bronchodilator management per pulmonology 4. Atrial fibrillation management per cardiologyc, continue Coreg. No anticoagulation at this time 5. Continue to monitor daily labs and chest x-rays. 6. GI and DVT prophylaxis. 7. Continue to reinforce the importance of continued smoking cessation. 8. Antibiotic management per infectious disease recommendations, currently on Levaquin and aztreonam for antibiotic coverage. Remains afebrile. Bronchial washings, cultures negative. 9. Increase activity as tolerated, out of bed for all meals, ambulate as tolerated. Physical and occupational therapy following. 10. Pain control per current medication regimen 11. Keep in ICU for another 24 hours 12. More recommendations to follow based on patient's clinical course. Time with Patient: Greater than 30
[2020-04-03] MEDS: guaiFENesin 600 MG TABLET.ER PO SCH ×2 (08:44→18:45)
[2020-04-03] MEDS: MAGNESIUM OXIDE 400 MG TAB PO SCH (08:44)
[2020-04-03] MEDS: CALCIUM CARB-VIT D 500 MG-5 MCG TAB PO SCH (08:44)
[2020-04-03] MEDS: ZINC SULFATE 220 MG CAP PO SCH (08:45)
[2020-04-03] MEDS: LETROZOLE 2.5 MG TAB PO SCH (08:47)
--- NOTE | 2020-04-03 10:41 | P.PN ---
Subjective Progress Note Date: 04/03/20 Principal diagnosis: Large left pneumothorax, new onset atrial fibrillation On 03/31/2020 the patient is being seen for a follow-up. 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 The patient was taken to the operating room approximately 2 weeks ago and the patient underwent a robotic-assisted left upper lobe resection. Postop, the patient was discharged home to be readmitted back to the hospital rule out empyema and air-fluid levels in the left chest along with a new onset atrial fibrillation and elevated white cell count. 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 A lesser the chest tube was placed at a time and drained turbid fluid. Gram stain was positive for gram-negative rods. Subsequently, the patient was taken back to the operating room and the patient underwent a thoracotomy and closure of a bronco pleural fistula with a muscle flap. The patient underwent a left posterior lateral thoracotomy, mobilization of the latissimus muscle flap, exploratory thoracotomy through the fourth int ercostal space, closure of the bronchopleural fistula and decortication of the left pleural space and portion of the left lower lobe and cryo-ablation of the intercostal nerves II through through L6 was done and reinforcement of the fistula was done and modification of the left pleural space with latissimus dorsi flap. The patient intraoperatively was found to have an empyema of the left chest as mentioned. Postop, the patient was extubated and the patient was brought back to the intensive care unit for further monitoring. She was placed on oxygen at 3 L about 2 by nasal cannula. There was a left-sided chest tube in place with a Pleur-evac and there were also 2 YASMEEN drains within the pleural space. The patient was being covered with broad-spectrum antibiotics including a combination of Levaquin, aztreonam and vancomycin pending further cultures from the pleural space. The patient was on tramadol 50 mg every 6 hours when necessary basis for pain control. The patient is also on Culver 53 25 one tablet every 4-6 hours on a when necessary basis for pain control. The patient recovered from the atrial fibrillation and the patient is currently in sinus rhythm. Cardizem drip has been discontinued and the patient was placed on Coreg 6.25 mg by mouth twice a day. She is on heparin subcu for DVT prophylaxis. IV fluids running at 40 mL an hour of normal saline. Chest x-ray revealed a pleural air fluid levels/pneumothorax and the left upper chest area measuring 2.1 cm in size. A small left-sided pleural effusion/consolidation of the left lung base. There were 2 drains within the pleural space in addition to surgical changes are thoracotomy. The patient has a right IJ triple-lumen catheter in place. Liver output, the chest tube has put out approximately 20 mL over the p ast 24 hours and there is no evidence of any air leak. As for the YASMEEN drains,one in the pleural space and drained approximately 450 over the past 24 hours. Whereas the other YASMEEN drains are present in her lap and drained 60 mL and 20 mL over the past 12 hours. She is awake and alert. She is using incentive spirometer. She is afebrile. Hemodynamically stable. She is on no pressors. IV fluids are running at the rate of 40 mL an hour. She is tolerating her diet. Today's evaluation of 04/01/2020, the patient is being seen for a follow-up. The patient is doing essentially the same as yesterday. She is using incentive spirometer and she is pulling approximately 800 mL on her I asked. The patient had a follow-up chest x-ray today that showed no major interval change compared to yesterday's chest x-ray. I do not appreciate any pneumothorax. All of the drains in the tubes are still in place. Note that the patient has a regular posterior chest to talk with of which has been minimal in the order of 10 mL over the past 24 hours and it's still has some minimal amount of intermittent air leak. The YASMEEN drains in the flap is in order of 250 mL in the anterior pain and 125 in the posterior drain over the past 8 hours. His another third drain in the pleural space output of which is still 120 mL over the past 24 hours. Cultures still pending for now. There is gram-negative bacteria. The patient remains on a combination of Levaquin, aztreonam and vancomycin. Surgical wound site is dry clean and intact. The patient has some swelling along the left posterior chest area at the surgical sites. No hematoma collection. She has a congested cough. Unable to bring up much sputum. She is afebrile. Her white cell count has dropped and the count is down to 15. The patient remains on normal saline at the rate of 100 mL an hour. He was having a low urine output in the order of 10-20 mL yesterday and this is improved with the increase the fluid rates. Creatinine is stable for now. Her pain is under adequate control and she is on Culver. She has received cryoablation. She is postop day #2. Cardiac rhythm is sinus. There is no atrial fibrillation. The patient is off all drips and she is utilizing Coreg for rate control. The patient is seen today 04/02/2020 in follow-up in the intensive care unit. She is currently sitting up in bed. Awake and alert in no acute distress. She is maintaining good O2 saturations in the 90s on room air now. 0.9 normal sitting in 100 ML's per hour. She is postoperative day #3 of a left thoracotomy with deep decortication and muscle flap. Computed tomography scan of the chest yesterday revealed postsurgical changes of the left lung. 2 left-sided chest tubes in pleural spaces containing a small amount of residual fluid. There is a chest wall herniation causing increased opacity in the left midlung at the third to fourth intercostal space. Note is made of moderate to large sided organizing hematoma in the posterior lateral left thorax thoracic chest wall and subcutaneous tissue. Today's chest x-ray reveals chest tubes in place. Extensive pleural parenchymal opacities persist throughout the left hemithorax. A loculated component along the lateral mid lung may be slightly decreased in size. She is status post 2 units of packed red blood cells this admission. Current hemoglobin 7.8. White count 15.7. Sodium 133. Potassium 4.2. Creatinine 0.43. She remains on bronchodilators, antibiotics in the form of aztreonam, vancomycin, Levaquin. The patient is seen today 04/03/2020 in follow-up in the intensive care unit. Postoperative day #4. She is awake and alert in no acute distress. Currently sitting up in bed. Maintaining good O2 saturation in the 90s on 2 L/m per nasal cannula. 0.9 normal saline at 30 mL per hour. Chest x-ray shows significant subcutaneous emphysema, rounded opacity within the left peripheral midlung. Improving infiltrates in the left lung field. No evidence of pneumothorax. 2 left-sided catheters remain in place. She is working well with the incentive spirometer. She is status post 2 units of packed red blood cells this admission. Current hemoglobin 7.9. Thoracic fluid cultures revealed no growth. Wound cultures reveal no growth. Pathology findings revealed fibrin debris with acute and chronic inflammation and a few reactive mesothelial elements. Negative for neoplasm. White count 14.2. Sodium 133. Potassium 2.9. Creatinine 0.39. Continues on bronchodilators, aztreonam, Levaquin. Heparin for DVT prophylaxis. Objective - Vital Signs Vital signs: Vital Signs Temp 97.8 F 04/03/20 00:00 Pulse 84 04/03/20 09:00 Resp 23 04/03/20 09:00 BP 107/76 04/03/20 09:00 Pulse Ox 95 04/03/20 09:00 Intake & Output 04/02/20 04/03/20 04/03/20 18:59 06:59 18:59 Intake Total 552 450 30 Output Total 1030 1350 40 Balance -478 -900 -10 Weight 69.8 kg 69.8 kg Intake: IV 552 450 30 .9 NS flush 12 Aztreonam 2 gm In Sodium 100 Chloride 0.9% 100 ml @ 33 .3 mls/hr IVPB Q8HR [facility] Rx#:[id number] Sodium Chloride 0.9% 1, 440 450 30 000 ml @ 30 mls/hr IV . Q24H [facility] Rx#:[id number] Output: Chest Tube Drainage 325 40 Chest tube #2 Anterior 150 40 YASMEEN drains 175 0 Urine 1030 1025 Other: Voiding Method Indwelling Catheter Toilet Toilet Bedside Commode Diaper Incontinent Incontinent # Voids 2 1 1 ABP, PAP, CO, CI - Last Documented Arterial Blood Pressure 141/53 - Exam GENERAL EXAM: Alert, pleasant 69-year-old female patient, on 2 L nasal cannula, fairly comfortable in no apparent distress. HEAD: Normocephalic. EYES: Normal reaction of pupils, equal size. NOSE: Clear with pink turbinates. THROAT: No erythema or exudates. NECK: No masses, no JVD. CHEST: Left-sided [address] LUNGS: Equal air entry with bilateral scattered rhonchi more so on the left lung CVS: S1 and S2 normal with no audible murmur, regular rhythm. ABDOMEN: No hepatosplenomegaly, normal bowel sounds, no guarding or rigidity. SPINE: No scoliosis or deformity SKIN: No rashes CENTRAL NERVOUS SYSTEM: No focal deficits, tone is normal in all 4 extremities. EXTREMITIES: There is no peripheral edema. No clubbing, no cyanosis. Peripheral pulses are intact. - Labs CBC & Chem 7: 04/03/20 03:48 04/03/20 03:48 Labs: Abnormal Lab Results - Last 24 Hours (Table) 04/03/20 04/03/20 Range/Units 03:48 03:48 WBC 14.2 H (3.8-10.6) k/uL RBC 2.88 L (3.80-5.40) m/uL Hgb 7.9 L (11.4-16.0) gm/dL Hct 24.4 L (34.0-46.0) % Plt Count 626 H (150-450) k/uL Neutrophils # 11.0 H (1.3-7.7) k/uL Monocytes # 1.1 H (0-1.0) k/uL Sodium 133 L (137-145) mmol/L Creatinine 0.39 L (0.52-1.04) mg/dL Glucose 110 H (74-99) mg/dL Calcium 8.0 L (8.4-10.2) mg/dL Microbiology - Last 24 Hours (Table) 03/29/20 12:08 Anaerobic Culture - Final Thoracic Fluid 03/29/20 12:08 Gram Stain - Final Thoracic Fluid Body Fluid Culture - Final Assessment and Plan Assessment: 1 Empyema of the left chest with 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 Status post Left posterior lateral thoracotomy, mobilization of latissimus muscle flap, exploratory thoracotomy through the fourth interspace, closure of bronchopleural fistula, decortication of left pleural space and portion of the left lower lobe, cryoablation of intercostal nerves L2 through L6, reinforcement of the bronchopleural fistula closure and modification in the left pleural space with the latissimus dorsi flap. Post operative day #4. Remains on antibiotics in the form of aztreonam and Levaquin Chest x-ray from today 04/03/2020 reveals rounded opacity within the left per ipheral midlung, 2 left-sided catheters in place. Improving infiltrates felt the left lung field. No pneumothorax is evident. Right lung is clear. 2 Bronchopleural fistula, left upper lobe apical stump status post fiberoptic bronchoscopy, left chest tube placement. Postoperative day #5 3 Squamous cell carcinoma of the left lung, status post robotically assisted left upper lobectomy with mediastinal lymph node dissection on 03/13/2020. 4 New-onset atrial fibrillation requiring Cardizem drip, currently in sinus rhythm 5 Moderate to severe chronic obstructive pulmonary disease with FEV1 value 72% of predicted 6 History of breast cancer status post left mastectomy 7 Carotid artery disease status post left carotid endarterectomy 8 History of chronic tobacco dependence 9 History of degenerative joint disease Plan: The patient was seen and evaluated by Dr. Renteria Chest x-ray and labs reviewed Continue antibiotics and bronchodilators Encouraged increased use of the incentive spirometer and cough and deep breathing exercises Increase her activity as tolerated We will continue to follow and make further recommendations based on her clinical status I, the cosigning physician, performed a history & physical examination of the patient. Lungs sounds with bilateral scattered rhonchi left greater than right. Maintaining good O2 saturations in the 90s on 2 L/m per nasal cannula. I discussed the assessment and plan of care with my nurse practitioner, Arminda solomon. I attest to the above note as dictated by her.
--- NOTE | 2020-04-03 12:32 | P.PN ---
Subjective 69-year-old female one of Dr. 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 Patient also survival of rest cancer post left mastectomy in 2010 post chemotherapy also she is known to have history of carotid stenosis post left carotid endarterectomy in 2018 previous history of tobacco use she quit in February this year continue to have moderate COPD with FEV1 of 72 percentile history of hypertension hyperlipidemia. Patient left the hospital on March 17 after surgery was seen pulmonary and cardiothoracic surgery on regular basis she returned to the [facility] department shortly after midnight today because of worsening dyspnea and shortness of breath with significant tachycardia according to patient she become more symptomatic with rapid ventricular response on and off become more symptomatic causing worsening shortness of breath. Was seen and evaluated demurs department her white blood cell was 18.5 hemoglobin 10.5 hematocrit 32.9 d-dimer was 2.48 patient COVID 19 testing was negative she found to be in A. fib with RVR pulse 153 beats per minutes cardiology were called along with cardiothoracic patient chest x-ray showed pleural effusion and pneumothorax of the left side. She was started on Cardizem drip brought the pulse rate down no anticoagulation was started this point patient was on Plavix since her carotid surgery and no previous history of A. fib her pulse rate used to be well controlled on Coreg 6.25 mg twice a day in the past. Patient will be going to the OR by cardiothoracic and she will have more repair along with chest tube as well. 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 Patient will be back to the ICU after surgery 03/31: Patient evaluated in the ICU this morning, sitting up in the bedside loni rodriguez, in no acute distress. She is postop day #1 status post left posterior lateral thoracotomy, closure of the bronchopleural fistula, and cryoablation of the intercostal nerves. Patient still has 2 left-sided chest tubes in place, she continues on Levaquin, vancomycin, and Aztreonam. Cultures are still pending, infectious disease on consult. Repeat chest x-ray shows residual left pneumothorax and left perihilar consolidation. Vital signs are stable, she is afebrile 98.0, heart rate is 90, respiratory 23, temperature 128/57, she's 95% on 3 L via nasal cannula. 04/01: Patient evaluated in the ICU, sitting up in the bedside chair. Nurse states she went to stand patient up to get her out of bed and she had a syncople episode. She was noted to be hypotensive 63/37 and tachycardic with a heart rate of 111. Stat CBC and repeat chest x-ray ordered, patient placed back in bed blood, pressure did come up to 99/47, heart rate 90. Hemoglobin 7.7, platelets 729, sodium 130, creatinine 0.51, BUN 16. Left pleural chest tube in place, left pleural YASMEEN drain in place and continues to drain serosanguineous drainage, left lateral chest YASMEEN drains [address] with bulb suction. Repeat chest x-ray showed some improvement of aeration throughout the remaining left lung post lobectomy, pneumothorax remains. 04/02: Patient remains in the ICU. Patient had chest CT yesterday which showed chest wall herniation causing increase opacity in the left midlung at the third through fourth intercostal space. Large size hematoma in the posterior lateral lower thoracic chest and subcutaneous tissue. Patient's hemoglobin dropped to 6.1 she did receive 2 units of packed red blood cells, hemoglobin went up to 8.4 after the transfusion and dropped to 7.8 this morning. Clinically patient looks much better today, reports she is feeling much better as well. She is off supplemental oxygen and currently 94%, continue to use incentive spirometer, chest tubes remain in place. 04/03: Patient examined in the ICU. Patient was up walking in the [place] yesterday and is doing well. Patient has left pleural chest tube and 2 YASMEEN drains to continuous suction with air leaks. She continues on Levaquin, vancom ycin and Aztreonam per infectious disease. Hemoglobin stable, 7.9 this morning, WBC 14.2, sodium 133, BUN 8, creatinine 0.39. She remains afebrile, vital signs are stable she is 97% on 2 L via nasal cannula. Patient did have multiple episodes of paroxysmal atrial fibrillation last night, cardiology is on consult. Cardiology did increase her dose of Coreg to 12.5 twice a day, currently she is rate controlled and converted back to normal sinus rhythm. Objective - Vital Signs Vital signs: Vital Signs Temp 97.8 F 04/03/20 00:00 Pulse 86 04/03/20 07:33 Resp 13 04/03/20 07:00 BP 126/66 04/03/20 07:00 Pulse Ox 96 04/03/20 07:00 Intake & Output 04/02/20 04/03/20 04/03/20 18:59 06:59 18:59 Intake Total 552 450 Output Total 1030 1350 Balance -478 -900 Weight 69.8 kg Intake: IV 552 450 .9 NS flush 12 Aztreonam 2 gm In Sodium 100 Chloride 0.9% 100 ml @ 33 .3 mls/hr IVPB Q8HR [facility] Rx#:[id number] Sodium Chloride 0.9% 1, 440 450 000 ml @ 30 mls/hr IV . Q24H [facility]A Rx#:[id number] Output: Chest Tube Drainage 325 Chest tube #2 Anterior 150 YASMEEN drains 175 Urine 1030 1025 Other: Voiding Method Indwelling Catheter Toilet Bedside Commode Incontinent # Voids 2 1 ABP, PAP, CO, CI - Last Documented Arterial Blood Pressure 141/53 - Exam General Appearance: Alert, cooperative, no acute distress Neck HEENT: Supple, no lymphadenopathy, no thyroid enlargement, no carotid bruits. Lungs: Diminished bilaterally, left more than right with expiratory wheeze on the left Chest Wall: Left-sided chest tubes in place Heart: Irregular rate and rhythm, S1, S2 normal, no murmur, rub or gallop. Back: Symmetric, no curvature, ROM normal, no CVA tenderness. Abdomen: Soft, non-tender, bowel sounds active all four quadrants, no masses, no organomegaly. Extremities: Extremities normal, atraumatic, no cyanosis or edema. Pulses: 2+ and symmetric. Skin: Skin color, texture, tugor normal, no rashes or lesions. Neurologic: Alert oriented x3 cranial nerves II through XII intact, no motor deficit, no abnormal balance or gait. - Labs CBC & Chem 7: 04/03/20 03:48 04/03/20 03:48 Labs: Abnormal Lab Results - Last 24 Hours (Table) 04/03/20 04/03/20 Range/Units 03:48 03:48 WBC 14.2 H (3.8-10.6) k/uL RBC 2.88 L (3.80-5.40) m/uL Hgb 7.9 L (11.4-16.0) gm/dL Hct 24.4 L (34.0-46.0) % Plt Count 626 H (150-450) k/uL Neutrophils # 11.0 H (1.3-7.7) k/uL Monocytes # 1.1 H (0-1.0) k/uL Sodium 133 L (137-145) mmol/L Creatinine 0.39 L (0.52-1.04) mg/dL Glucose 110 H (74-99) mg/dL Calcium 8.0 L (8.4-10.2) mg/dL Microbiology - Last 24 Hours (Table) 03/29/20 12:08 Anaerobic Culture - Final Thoracic Fluid 03/29/20 12:08 Gram Stain - Final Thoracic Fluid Body Fluid Culture - Final Assessment and Plan Plan: 1 new onset of A. fib with RVR: Multiple episodes of A. fib last night, Coreg increased to 12.5mg twice a day, cardiology on consult 2 large left-sided pleural effusion and pneumothorax: The patient had empyema of the left chest along with broncho-pleural fistula post exploratory thoracotomy with ablation of the intercostal nerves 3 squama cell carcinoma of the left upper lobe: Post robotic-assisted left upper lobectomy based on pathology and recommendation by cardiothoracic with decide with the patient need chemotherapy or not. 4 COPD: Patient will be continue on DuoNeb and possible Pulmicort 5 PAD: Post left carotid endarterectomy has been doing well since. 6 history of breast cancer post left-sided mastectomy and chemotherapy has been in remission. 7 history of hypertension: On Coreg 12.5 mg twice a day 8 anxiety and panic attack has been on lorazepam. 9 Empyema: Continue on vancomycin, Aztreonam, and Levaquin. ID will finalize antibiotics once culture from the pleural fluid is done, may need PICC line for group home antibiotics. 10 postoperative acute blood loss anemia: Status post blood transfusion, hemoglobin is stabilized 11 hypoglycemia: On diet control. 12 pain control: Patient had decrease ablation of the intercostal nerve L2 well 6 will continue patient on pain management as well The above impression and plan of care have been discussed and directed by signing physician. Lindsay Aragon nurse practitioner acting as scribe for signing physician.
[2020-04-03] MEDS ORDERED: VANCOMYCIN TROUGH DUE 1 EACH MISC MISCELLANE ONE (14:00)
[2020-04-03] MEDS: SODIUM CHLORIDE 0.9% 1,000 ML IV SCH (14:01)
[2020-04-03] MEDS: LEVOFLOXACIN 750 MG TAB PO SCH (14:02)
[2020-04-03] MEDS: traMADol 50 MG TAB PO PRN (16:10)
[2020-04-03] MEDS: SENNOSIDES-DOCUSATE SODIUM 1 EACH TAB PO SCH (21:02)
--- NOTE | 2020-04-03 21:47 | PN ---
PROGRESS NOTE DATE OF SERVICE: 04/03/2020 REASON FOR FOLLOWUP: Empyema. INTERVAL HISTORY: Patient is currently afebrile. The patient is breathing comfortably. Denies having any chest pain. Occasional cough. No nausea, no vomiting, no abdominal pain or diarrhea. PHYSICAL EXAMINATION: Blood pressure 98/66, pulse 89, temperature 97.9. She is 99% on room air. General description is an elderly female lying in bed in no distress. RESPIRATORY SYSTEM: Unlabored breathing with decreased breath sounds at the base. No wheeze. HEART: S1, S2. Regular rate and rhythm. ABDOMEN: Soft. No tenderness. LABS: Hemoglobin 7.9, white count 14.2, BUN of 8, creatinine 0.39. DIAGNOSTIC IMPRESSION AND PLAN: Patient with left-sided empyema in this patient status post chest tube placement. Culture has been negative so far for any resistant pathogen. Patient's white count is showing a downward trend. Currently covered with Azactam because of her allergies. Continue supportive care. MMODL / IJN: [id number] /
[2020-04-04] MEDS: AZTREONAM 2 GM in SODIUM CHLORIDE 0.9% 100 ML IVPB SCH ×3 (00:04→16:00)
[2020-04-04] MEDS: HEPARIN SODIUM,PORCINE 5,000 UNIT/ML 1 ML VIAL SQ SCH ×4 (00:04→23:40)
[2020-04-04] MEDS: HYDROcodone/APAP 5-325MG 1 EACH TAB PO PRN (02:40)
[2020-04-04 05:49] LABS: Basophils # (A) 0.1 k/uL (0-0.2); Basophils % (A) 0 %; Eosinophils # (A) 0.3 k/uL (0-0.7); Eosinophils % (A) 2 %; HGB 8.2 gm/dL (11.4-16.0); Hypochromasia Slight; Lymphocytes # (A) 2.3 k/uL (1.0-4.8); Lymphocytes % (A) 14 %; MCH 27.1 pg (25.0-35.0); MCHC 31.7 g/dL (31.0-37.0); MCV 85.6 fL (80.0-100.0); Mean Platelet Volume 6.2; Monocytes # (A) 1.1 k/uL (0-1.0); Monocytes % (A) 7 %; Neutrophils # (A) 12.8 k/uL (1.3-7.7); Neutrophils % (A) 76 %; Platelet Count 798 k/uL (150-450); RBC 3.04 m/uL (3.80-5.40); RDW 15.3 % (11.5-15.5); WBC 16.9 k/uL (3.8-10.6)
[2020-04-04 05:57] LABS: African American GFR (CKD) >90 (>60 ml/min/1.73 sqM); Anion Gap -1 mmol/L; Blood Urea Nitrogen 9 mg/dL (7-17); Calcium 8.2 mg/dL (8.4-10.2); Carbon Dioxide 31 mmol/L (22-30); Chloride 103 mmol/L (98-107); Glucose 112 mg/dL (74-99); Non-African American GFR(CKD) >90 (>60 ml/min/1.73 sqM); Sodium 133 mmol/L (137-145)
--- NOTE | 2020-04-04 06:33 | XR ---
EXAMINATION TYPE: XR chest 1V portable DATE OF EXAM: 04/04/2020 CLINICAL HISTORY: Difficulty breathing progress study. Post open thoracotomy. TECHNIQUE: Single AP portable upright view of the chest is obtained. COMPARISON: Chest x-ray from one day earlier and older studies. CT chest April 01, 2020. FINDINGS: Stable right internal jugular central venous catheter. There are several left-sided chest tubes redemonstrated. Better visualization of moderate left-sided pleural fluid collection superiorly and laterally on the current study. Adjacent left mid lung atelectasis and/or less likely consolidation is noted. Extensiv e overlying subcutaneous emphysema redemonstrated. Axillary surgical clips redemonstrated. Stable Sma ll to moderate size left basilar pleural fluid collection . Underlying mild underlying emphysematous change. Right lung remains clear. Cardiac silhouette size stable and upper limits of normal. Left-nany ed volume loss redemonstrated with aortic knob shift. Osseous structures are intact. IMPRESSION: Postsurgical changes left lung redemonstrated. Stable small to moderate size basilar pleu ral fluid collection. Better visualized small to moderate sized left apical air collection with chest tubes in place. Left midlung atelectatic change with left-sided volume loss redemonstrated. Right vicky ng remains clear.
[2020-04-04] MEDS: carvediloL 12.5 MG TAB PO SCH (06:40)
[2020-04-04] MEDS: IPRATROPIUM-ALBUTEROL 3 ML NEB INHALATION SCH ×3 (07:43→20:07)
[2020-04-04] MEDS: LETROZOLE 2.5 MG TAB PO SCH (08:19)
[2020-04-04] MEDS: guaiFENesin 600 MG TABLET.ER PO SCH ×2 (08:21→21:05)
[2020-04-04] MEDS: ZINC SULFATE 220 MG CAP PO SCH (08:21)
[2020-04-04] MEDS: CALCIUM CARB-VIT D 500 MG-5 MCG TAB PO SCH (08:23)
[2020-04-04] MEDS: MAGNESIUM OXIDE 400 MG TAB PO SCH (08:23)
--- NOTE | 2020-04-04 08:38 | P.PN ---
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 Previous medical history of squamous cell carcinoma of the left lung status post robotically assisted left upper lobectomy with mediastinal lymph node dissection and repair of left main bronchus on 03/13/2020 with pathology consistent with T2b, N0, M0, breast cancer status post left mastectomy in 2006 with chemo, previous tobacco dependence with cessation in February 2020, moderate chronic restrictive pulmonary disease with a recent FEV1 value 72% of predicted value, hypertension, left carotid stenosis status post left carotid endarterectomy in 2019, degenerative joint disease. POD #5 Left posterior lateral thoracotomy, mobilization of latissimus muscle flap, exploratory thoracotomy through the fourth intercostal space, closure of bronchopleural fistula, decortication of left pleural space and portion of the left lower lobe, cryoablation of intercostal nerves L2 through L6, reinforcement of the bronchopleural fistula closure and modification in the left pleural space with the latissimus dorsi flap. POD #6 Fiberoptic bronchoscopy, left chest tube placement. Postoperative acute blood loss anemia, expected, dilutional. The patient is currently sitting up in a recliner in no acute distress. She states pain is well controlled on current pain medication regimen, denies shortness of breath except after walking in hallway. He had a couple of episodes of atrial fibrillation with rapid ventricular response last night, was very anxious about it, currently in sinus rhythm with heart rate in the 90s, she calmed down with administration of [place]. He received her morning dose of Coreg early this morning, current systolic blood pressure in the mid 80s with mean pressure in the mid 60s. Left pleural chest tube and 2 YASMEEN drains continue to suction with continuous air leak present in chest tube chamber. She has ambulated in the hallway several times without difficulty. Levaquin, aztreonam continue per infectious disease. Daughter continues to be updated frequently and was on the phone this morning with my assessment. Objective - Vital Signs Vital signs: Vital Signs Temp 97.7 F 04/04/20 08:00 Pulse 84 04/04/20 08:00 Resp 20 04/04/20 08:00 BP 83/56 04/04/20 08:00 Pulse Ox 96 04/04/20 08:00 Intake & Output 04/03/20 04/04/20 04/04/20 18:59 06:59 18:59 Intake Total 530 360 60 Output Total 370 900 0 Balance 160 -540 60 Weight 69.8 kg 66.3 kg Intake: IV 530 360 60 Aztreonam 2 gm In Sodium 200 Chloride 0.9% 100 ml @ 33 .3 mls/hr IVPB Q8HR [facility] Rx#:[id number] Sodium Chloride 0.9% 1, 330 360 60 000 ml @ 30 mls/hr IV . Q24H [facility]A Rx#:[id number] Output: Chest Tube Drainage 70 100 Chest tube #2 Anterior 70 50 YASMEEN drains 0 50 Urine 300 800 0 Other: Voiding Method Toilet Toilet Diaper Diaper Incontinent Incontinent # Voids 1 0 # Bowel Movements 1 ABP, PAP, CO, CI - Last Documented Arterial Blood Pressure 141/53 - Constitutional General appearance: Present: cooperative, no acute distress - Respiratory Details: Lung sounds diminished bilaterally. Respirations even, non-labored. Currently on room air with saturations in the mid 90s. Able to achieve 1000 mL on her incentive spirometer. Left pleural chest tube present and connected to continuous wall suction, 50 mL serosanguinous output overnight, 150 mL in the last 24 hours, continuous air leak present. Two JPs present to continuous wall suction, 50 mL sanguinous drainage overnight, 125 mL in the last 24 hours. - Cardiovascular Details: S1/S2 present, regular rate and rhythm, sinus rhythm on telemetry with heart rate in the 90s. No edema present. No calf pain or tenderness present. Antiembolism stockings, SCDs present. Right internal jugular central line present. - Gastrointestinal Gastrointestinal Comment(s): Abdomen soft, non-distended, non-tender. Active bowel sounds present in all 4 quadrants. Tolerating oral intake. Positive bowel movement 04/04/20 - Genitourinary Genitourinary Comment(s): Patient continues to void with occasional incontinence - Integumentary Integumentary Comment(s): Skin is warm and dry. Left lateral thoracotomy incision clean, dry and approximated. No drainage or redness is present. Some swelling to her left posterior chest wall at her surgical site. Soft and nontender to palpate. - Neurologic Neurologic: Present: CNII-XII intact - Musculoskeletal Musculoskeletal: Present: gait normal, strength equal bilaterally - Psychiatric Psychiatric: Present: A&O x's 3, appropriate affect, intact judgment & insight - Allied health notes Allied health notes reviewed: nursing - Labs CBC & Chem 7: 04/04/20 05:32 04/04/20 05:32 Labs: Abnormal Lab Results - Last 24 Hours (Table) 04/04/20 04/04/20 Range/Units 05:32 05:32 WBC 16.9 H (3.8-10.6) k/uL RBC 3.04 L (3.80-5.40) m/uL Hgb 8.2 L (11.4-16.0) gm/dL Hct 26.0 L (34.0-46.0) % Plt Count 798 H (150-450) k/uL Neutrophils # 12.8 H (1.3-7.7) k/uL Monocytes # 1.1 H (0-1.0) k/uL Sodium 133 L (137-145) mmol/L Carbon Dioxide 31 H (22-30) mmol/L Creatinine 0.40 L (0.52-1.04) mg/dL Glucose 112 H (74-99) mg/dL Calcium 8.2 L (8.4-10.2) mg/dL Microbiology - Last 24 Hours (Table) 03/30/20 09:45 Anaerobic Culture - Final Other - Other - Imaging and Cardiology Chest x-ray: report reviewed, image reviewed Assessment and Plan Assessment: 1. Empyema left chest with bronchopleural fistula status post fiberoptic bronchoscopy with left chest tube placement, left posterior lateral thoracotomy, mobilization of latissimus muscle flap, exploratory thoracotomy through the fourth intercostal space, closure of bronchopleural fistula, decortication of left pleural space and portion of the left lower lobe, cryoablation of intercostal nerves L2 through L6, reinforcement of the bronchopleural fistula closure and modification in the left pleural space with the latissimus dorsi flap 2. Leukocytosis, secondary to empyema 3. New onset atrial fibrillation with RVR 4. Squamous cell carcinoma of the left lung status post robotically assisted left upper lobectomy with mediastinal lymph node dissection and repair of left main bronchus on 03/13/2020 with pathology consistent with T2b, N0, M0 5. Breast cancer status post left mastectomy in 2006 with chemo 6. Previous tobacco dependence with cessation in February 2020 7. Moderate chronic restrictive pulmonary disease with a recent FEV1 value 72% of predicted value 8. Hypertension 9. Left carotid stenosis status post left carotid endarterectomy in 2019 10. Degenerative joint disease 11. Postoperative acute blood loss anemia, expected, dilutional Plan: 1. Continue left YASMEEN pleural tube to low continuous wall suction at -20 cm H2O, chest tube placed to waterseal, will obtain chest x-ray in 2 hours. Continue to monitor for airleak resolution. Record strict inaccurate I's and O's. 2. Oxygen as needed, mostly at night with sleeping. Encourage use of her incentive spirometry 10 times every hour while awake. 3. Bronchodilator management per pulmonology 4. Atrial fibrillation management per cardiology. No anticoagulation at this time 5. Continue to monitor daily labs and chest x-rays. 6. GI and DVT prophylaxis. 7. Continue to reinforce the importance of continued smoking cessation. 8. Antibiotic management per infectious disease recommendations, currently on Levaquin and aztreonam for antibiotic coverage. Remains afebrile. Bronchial washings, cultures negative. 9. Increase activity as tolerated, out of bed for all meals, ambulate as tolerated. Physical and occupational therapy following. 10. Pain control per current medication regimen 11. Keep in ICU for another 24 hours 12. More recommendations to follow based on patient's clinical course. Time with Patient: Greater than 30
[2020-04-04] MEDS: SODIUM CHLORIDE 0.9% 1,000 ML IV SCH ×2 (09:46→11:25)
--- NOTE | 2020-04-04 10:13 | P.PN ---
Subjective Progress Note Date: 04/04/20 Principal diagnosis: A. fib with RVR, severe dyspnea and shortness of breath, left sided pneumothorax, Empyema, 69-year-old female one of Dr. 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 Patient also survival of rest cancer post left mastectomy in 2010 post chemotherapy also she is known to have history of carotid stenosis post left carotid endarterectomy in 2018 previous history of tobacco use she quit in February this year continue to have moderate COPD with FEV1 of 72 percentile history of hypertension hyperlipidemia. Patient left the hospital on March 17 after surgery was seen pulmonary and cardiothoracic surgery on regular basis she returned to the emergency department shortly after midnight today because of worsening dyspnea and shortness of breath with significant tachycardia according to patient she become more symptomatic with rapid ventricular response on and off become more symptomatic causing worsening shortness of breath. Was seen and evaluated demurs department her white blood cell was 18.5 hemoglobin 10.5 hematocrit 32.9 d-dimer was 2.48 patient COVID 19 testing was negative she found to be in A. fib with RVR pulse 153 beats per minutes cardiology were called along with cardiothoracic patient chest x-ray showed pleural effusion and pneumothorax of the left side. She was started on Cardizem drip brought the pulse rate down no anticoagulation was started this point patient was on Plavix since her carotid surgery and no previous history of A. fib her pulse rate used to be well controlled on Coreg 6.25 mg twice a day in the past. Patient will be going to the OR by cardiothoracic and she will have more repair along with chest tube as well. 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 Patient will be back to the ICU after surgery. 03/31: Patient evaluated in the ICU this morning, sitting up in the bedside chair, in no acute distress. She is postop day #1 status post left posterior lateral thoracotomy, closure of the bronchopleural fistula, and cryoablation of the intercostal nerves. Patient still has 2 left-sided chest tubes in place, she continues on Levaquin, vancomycin, and Aztreonam. Cultures are still pending, i nfectious disease on consult. Repeat chest x-ray shows residual left pneumothorax and left perihilar consolidation. Vital signs are stable, she is afebrile 98.0, heart rate is 90, respiratory 23, temperature 128/57, she's 95% on 3 L via nasal cannula. 04/01: Patient evaluated in the ICU, sitting up in the bedside chair. Nurse states she went to stand patient up to get her out of bed and she had a syncople episode. She was noted to be hypotensive 63/37 and tachycardic with a heart rate of 111. Stat CBC and repeat chest x-ray ordered, patient placed back in bed blood, pressure did come up to 99/47, heart rate 90. Hemoglobin 7.7, platelets 729, sodium 130, creatinine 0.51, BUN 16. Left pleural chest tube in place, left pleural YASMEEN drain in place and continues to drain serosanguineous drainage, left lateral chest YASMEEN drains [address] with bulb suction. Repeat chest x-ray showed some improvement of aeration throughout the remaining left lung post lobectomy, pneumothorax remains. 04/02: Patient remains in the ICU. Patient had chest CT yesterday which showed chest wall herniation causing increase opacity in the left midlung at the third through fourth intercostal space. Large size hematoma in the posterior lateral lower thoracic chest and subcutaneous tissue. Patient's hemoglobin dropped to 6.1 she did receive 2 units of packed red blood cells, hemoglobin went up to 8.4 after the transfusion and dropped to 7.8 this morning. Clinically patient looks much better today, reports she is feeling much better as well. She is off supplemental oxygen and currently 94%, continue to use incentive spirometer, chest tubes remain in place. 04/03: Patient examined in the ICU. Patient was up walking in the [place] yesterday and is doing well. Patient has left pleural chest tube and 2 YASMEEN drains to continuous suction with air leaks. She continues on Levaquin, vancomycin and Aztreonam per infectious disease. Hemoglobin stable, 7.9 this morning, WBC 14.2, sodium 133, BUN 8, creatinine 0.39. She remains afebrile, vital signs are stable she is 97% on 2 L via nasal cannula. Patient did have multiple episodes of paroxysmal atrial fibrillation last night, cardiology is on consult. Cardiology did increase her dose of Coreg to 12.5 twice a day, currently she is rate controlled and converted back to normal sinus rhythm. 04/04 2020: Patient remain in the ICU, still have chest tube in, there is a quite possibility might have pneumothorax and slight leak around the chest tube area a chest x-ray still pending at this point, patient still seen pulmonary and cardiothoracic might need another chest tube or adjustment of her current chest tube area. He'll otherwise pain is under control currently patient is hemodynamically stable. Objective - Vital Signs Vital signs: Vital Signs Temp 97.7 F 04/04/20 08:00 Pulse 82 04/04/20 09:00 Resp 18 04/04/20 09:00 BP 80/65 04/04/20 09:00 Pulse Ox 93 L 04/04/20 09:00 Intake & Output 04/03/20 04/04/20 04/04/20 18:59 06:59 18:59 Intake Total 530 360 90 Output Total 370 900 150 Balance 160 -540 -60 Weight 69.8 kg 66.3 kg Intake: IV 530 360 90 Aztreonam 2 gm In Sodium 200 Chloride 0.9% 100 ml @ 33 .3 mls/hr IVPB Q8HR [facility] Rx#:[id number] Sodium Chloride 0.9% 1, 330 360 90 000 ml @ 30 mls/hr IV . Q24H [facility]A Rx#:[id number] Output: Chest Tube Drainage 70 100 Chest tube #2 Anterior 70 50 YASMEEN drains 0 50 Urine 300 800 150 Other: Voiding Method Toilet Toilet Toilet Diaper Diaper Diaper Incontinent Incontinent Incontinent # Voids 1 0 # Bowel Movements 1 ABP, PAP, CO, CI - Last Documented Arterial Blood Pressure 141/53 - Exam Review of Systems CONSTITUTIONAL: Well-developed mild respiratory distress EYES: No icterus sclerae, no conjunctivitis. EARS, NOSE, MOUTH, THROAT, and FACE: No sore throat, lymphadenopathy, carotid bruits or deformity. RESPIRATORY: Positive shortness of breath cough wheezes was significant left- sided chest pain CARDIOVASCULAR: Positive PND orthopnea palpitation. GASTROINTESTINAL: No Abd pain, Nausea or vomiting, no Diarrhea or constipation, No GI Bleed, no distention or masses. GENITOURINARY: Negative for Hematuria or UTI, no kidney stones. INTEGUMENT/BREAST: Negative for any muscular injury with mild osteoarthritis.. HEMATOLOGIC/LYMPHATIC: Negative for bleed or purpura. MUSCULOSKELTAL: Negative for Myalgia or arthralgia. NEURLOGICAL: No LOC, Sz or syncope, blurred vision dizziness or abnormality.. BEHAVIORAL/PSYCH: Negative. ENDOCRINE: Negative. Physical Exam Vitals: General Appearance: Alert, cooperative, mild distress with mild tachypnea Neck HEENT: Supple, no lymphadenopathy, no thyroid enlargement, no carotid bruits. Lungs: Decreased breath sounds in the left side positive for rhonchi with crackles in the upper part of the chest wall area with mild expiratory wheezes. Chest Wall: Decrease expansion with deep inspiration scar from her incision on the left side looks fine still have slight soreness pain and discomfort and tenderness in the left side of the rib cage compared to the right Heart: Irregular rate and rhythm, S1, S2 normal, no murmur, rub or gallop. Back: Symmetric, no curvature, ROM normal, no CVA tenderness. Abdomen: Soft, non-tender, bowel sounds active all four quadrants, no masses, no organomegaly. Extremities: Extremities normal, atraumatic, no cyanosis or edema. Pulses: 2+ and symmetric. Skin: Skin color, texture, tugor normal, no rashes or lesions. Neurologic: Alert oriented x3 cranial nerves II through XII intact, no motor def icit, no abnormal balance or gait. - Labs CBC & Chem 7: 04/04/20 05:32 04/04/20 05:32 Labs: Abnormal Lab Results - Last 24 Hours (Table) 04/04/20 04/04/20 Range/Units 05:32 05:32 WBC 16.9 H (3.8-10.6) k/uL RBC 3.04 L (3.80-5.40) m/uL Hgb 8.2 L (11.4-16.0) gm/dL Hct 26.0 L (34.0-46.0) % Plt Count 798 H (150-450) k/uL Neutrophils # 12.8 H (1.3-7.7) k/uL Monocytes # 1.1 H (0-1.0) k/uL Sodium 133 L (137-145) mmol/L Carbon Dioxide 31 H (22-30) mmol/L Creatinine 0.40 L (0.52-1.04) mg/dL Glucose 112 H (74-99) mg/dL Calcium 8.2 L (8.4-10.2) mg/dL Microbiology - Last 24 Hours (Table) 03/30/20 09:45 Anaerobic Culture - Final Other - Other Assessment and Plan Assessment: 1 new onset of A. fib with RVR: Patient was started on Cardizem drip we'll consult cardiology echocardiogram will be done patient remain on Coreg if no respond will add amiodarone and anticoagulation will be held that she seen cardiothoracic to decide with severe with the pleural effusion and pneumothorax. 2 large left-sided pleural effusion and pneumothorax: The patient had empyema of the left chest along with broncho-pleural fistula post exploratory thoracotomy with decrease ablation of the intercostal nerve of L2 with 2 out of 6. Patient still might have pneumothorax might require an adjustment of her chest tube area today. 3 squama cell carcinoma of the left upper lobe: Post robotic-assisted left upper lobectomy based on pathology and recommendation by cardiothoracic with decide with the patient need chemotherapy or not. 4 COPD: Patient will be continue on DuoNeb and possible Pulmicort continue O2 and titrate dose higher. 5 PAD: Post left carotid endarterectomy has been doing well since. 6 history of breast cancer post left-sided mastectomy and chemotherapy has been in remission. 7 history of hypertension: Was on Coreg has been doing well. 8 anxiety and panic attack has been on lorazepam. 9 possible Empyema: Was still be on antibiotic till culture from the pleural fluid is done. 10 mild anemia: Mostly iron deficiency continue iron supplement. 11 hypoglycemia: On diet control. 12 pain control: Patient had decrease ablation of the intercostal nerve L2 well 6 will continue patient on pain management as well Patient still quite bit sick at this point not been able to do or part spit any physical therapy continue current management and might require PT and subacute rehab eventually.
[2020-04-04] MEDS ORDERED: DEXTROSE 5% IN WATER 100 ML with AMIODARONE 150 MG IV ONE (10:14)
[2020-04-04] MEDS ORDERED: AMIODARONE 360 MG in DEXTROSE 5% IN WATER 200 ML IV ONE ×2 (10:15)
--- NOTE | 2020-04-04 10:31 | XR ---
EXAMINATION TYPE: XR chest 1V portable DATE OF EXAM: 04/04/2020 CLINICAL HISTORY: Difficulty breathing progress study. Postlobectomy. TECHNIQUE: Single AP portable upright view of the chest is obtained. COMPARISON: Chest x-ray from one day earlier and older studies. FINDINGS: Stable right internal jugular central venous catheter. There are several left-sided chest tubes redemonstrated. Improved left-sided pleural air collection superiorly and laterally on the current study. Left midlun g opacity remains present. Extensive overlying subcutaneous emphysema redemonstrated. Axillary surgic al clips redemonstrated. Stable Small to moderate size left basilar pleural fluid collection . Underl alejandra mild underlying emphysematous change. Right lung remains clear. Cardiac silhouette size stable a nd upper limits of normal. Left-sided volume loss improved. Osseous structures remain demineralized. IMPRESSION: Postsurgical changes left lung redemonstrated. Improved left-sided pleural air collection on current study and improved left-sided volume loss versus most recent x-ray.
--- NOTE | 2020-04-04 10:36 | P.PN ---
Subjective Progress Note Date: 04/04/20 Principal diagnosis: Paroxysmal atrial fibrillation This is a 69-year-old female patient who is status post recent left upper lobectomy who we consulted to see her for brief episode of paroxysmal atrial fibrillation. The patient was seen today 04/04/2020. She did have multiple episodes of A. fib with RVR last night and we are going to start the patient on amiodarone with arely us and drip. Beside that she dropped her blood pressure down. We will stop the Coreg and start the patient on metoprolol at the low-dose and increase the dose gradually once a pressure improved. The hemoglobin is 8.2 Objective - Vital Signs Vital signs: Vital Signs Temp 97.7 F 04/04/20 08:00 Pulse 82 04/04/20 09:00 Resp 18 04/04/20 09:00 BP 80/65 04/04/20 09:00 Pulse Ox 93 L 04/04/20 09:00 Intake & Output 04/03/20 04/04/20 04/04/20 18:59 06:59 18:59 Intake Total 530 360 90 Output Total 370 900 150 Balance 160 -540 -60 Weight 69.8 kg 66.3 kg Intake: IV 530 360 90 Aztreonam 2 gm In Sodium 200 Chloride 0.9% 100 ml @ 33 .3 mls/hr IVPB Q8HR [facility] Rx#:[id number] Sodium Chloride 0.9% 1, 330 360 90 000 ml @ 30 mls/hr IV . Q24H [facility] Rx#:[id number] Output: Chest Tube Drainage 70 100 Chest tube #2 Anterior 70 50 YASMEEN drains 0 50 Urine 300 800 150 Other: Voiding Method Toilet Toilet Toilet Diaper Diaper Diaper Incontinent Incontinent Incontinent # Voids 1 0 # Bowel Movements 1 ABP, PAP, CO, CI - Last Documented Arterial Blood Pressure 141/53 - Constitutional General appearance: Present: no acute distress - Respiratory Respiratory: bilateral: diminished - Cardiovascular Rhythm: regular Heart sounds: normal: S1, S2 - Labs CBC & Chem 7: 04/04/20 05:32 04/04/20 05:32 Labs: Abnormal Lab Results - Last 24 Hours (Table) 04/04/20 04/04/20 Range/Units 05:32 05:32 WBC 16.9 H (3.8-10.6) k/uL RBC 3.04 L (3.80-5.40) m/uL Hgb 8.2 L (11.4-16.0) gm/dL Hct 26.0 L (34.0-46.0) % Plt Count 798 H (150-450) k/uL Neutrophils # 12.8 H (1.3-7.7) k/uL Monocytes # 1.1 H (0-1.0) k/uL Sodium 133 L (137-145) mmol/L Carbon Dioxide 31 H (22-30) mmol/L Creatinine 0.40 L (0.52-1.04) mg/dL Glucose 112 H (74-99) mg/dL Calcium 8.2 L (8.4-10.2) mg/dL Microbiology - Last 24 Hours (Table) 03/30/20 09:45 Anaerobic Culture - Final Other - Other Assessment and Plan Assessment: Assessment #1 paroxysmal atrial fibrillation #2 status post recent left upper lobectomy #3 left pleural effusion and status post chest tube #4 carotid disease #5 marginal blood pressure Plan #1 DC Coreg and start the patient on metoprolol #2 start the patient on amiodarone #3 continue monitor the hemoglobin #4 follow-up with the patient
--- NOTE | 2020-04-04 11:23 | P.PN ---
Subjective Progress Note Date: 04/04/20 Principal diagnosis: Large left pneumothorax, new onset atrial fibrillation On 03/31/2020 the patient is being seen for a follow-up. 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 The patient was taken to the operating room approximately 2 weeks ago and the patient underwent a robotic-assisted left upper lobe resection. Postop, the patient was discharged home to be readmitted back to the hospital rule out empyema and air-fluid levels in the left chest along with a new onset atrial fibrillation and elevated white cell count. 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 A lesser the chest tube was placed at a time and drained turbid fluid. Gram stain was positive for gram-negative rods. Subsequently, the patient was taken back to the operating room and the patient underwent a thoracotomy and closure of a bronco pleural fistula with a muscle flap. The patient underwent a left posterior lateral thoracotomy, mobilization of the latissimus muscle flap, exploratory thoracotomy through the fourth int ercostal space, closure of the bronchopleural fistula and decortication of the left pleural space and portion of the left lower lobe and cryo-ablation of the intercostal nerves II through through L6 was done and reinforcement of the fistula was done and modification of the left pleural space with latissimus dorsi flap. The patient intraoperatively was found to have an empyema of the left chest as mentioned. Postop, the patient was extubated and the patient was brought back to the intensive care unit for further monitoring. She was placed on oxygen at 3 L about 2 by nasal cannula. There was a left-sided chest tube in place with a Pleur-evac and there were also 2 YASMEEN drains within the pleural space. The patient was being covered with broad-spectrum antibiotics including a combination of Levaquin, aztreonam and vancomycin pending further cultures from the pleural space. The patient was on tramadol 50 mg every 6 hours when necessary basis for pain control. The patient is also on [place] 53 25 one tablet every 4-6 hours on a when necessary basis for pain control. The patient recovered from the atrial fibrillation and the patient is currently in sinus rhythm. Cardizem drip has been discontinued and the patient was placed on Coreg 6.25 mg by mouth twice a day. She is on heparin subcu for DVT prophylaxis. IV fluids running at 40 mL an hour of normal saline. Chest x-ray revealed a pleural air fluid levels/pneumothorax and the left upper chest area measuring 2.1 cm in size. A small left-sided pleural effusion/consolidation of the left lung base. There were 2 drains within the pleural space in addition to surgical changes are thoracotomy. The patient has a right IJ triple-lumen catheter in place. Liver output, the chest tube has put out approximately 20 mL over the p ast 24 hours and there is no evidence of any air leak. As for the YASMEEN drains,one in the pleural space and drained approximately 450 over the past 24 hours. Whereas the other YASMEEN drains are present in her lap and drained 60 mL and 20 mL over the past 12 hours. She is awake and alert. She is using incentive spirometer. She is afebrile. Hemodynamically stable. She is on no pressors. IV fluids are running at the rate of 40 mL an hour. She is tolerating her diet. Today's evaluation of 04/01/2020, the patient is being seen for a follow-up. The patient is doing essentially the same as yesterday. She is using incentive spirometer and she is pulling approximately 800 mL on her I asked. The patient had a follow-up chest x-ray today that showed no major interval change compared to yesterday's chest x-ray. I do not appreciate any pneumothorax. All of the drains in the tubes are still in place. Note that the patient has a regular posterior chest to talk with of which has been minimal in the order of 10 mL over the past 24 hours and it's still has some minimal amount of intermittent air leak. The YASMEEN drains in the flap is in order of 250 mL in the anterior pain and 125 in the posterior drain over the past 8 hours. His another third drain in the pleural space output of which is still 120 mL over the past 24 hours. Cultures still pending for now. There is gram-negative bacteria. The patient remains on a combination of Levaquin, aztreonam and vancomycin. Surgical wound site is dry clean and intact. The patient has some swelling along the left posterior chest area at the surgical sites. No hematoma collection. She has a congested cough. Unable to bring up much sputum. She is afebrile. Her white cell count has dropped and the count is down to 15. The patient remains on normal saline at the rate of 100 mL an hour. He was having a low urine output in the order of 10-20 mL yesterday and this is improved with the increase the fluid rates. Creatinine is stable for now. Her pain is under adequate control and she is on [place]. She has received cryoablation. She is postop day #2. Cardiac rhythm is sinus. There is no atrial fibrillation. The patient is off all drips and she is utilizing Coreg for rate control. The patient is seen today 04/02/2020 in follow-up in the intensive care unit. She is currently sitting up in bed. Awake and alert in no acute distress. She is maintaining good O2 saturations in the 90s on room air now. 0.9 normal sitting in 100 ML's per hour. She is postoperative day #3 of a left thoracotomy with deep decortication and muscle flap. Computed tomography scan of the chest yesterday revealed postsurgical changes of the left lung. 2 left-sided chest tubes in pleural spaces containing a small amount of residual fluid. There is a chest wall herniation causing increased opacity in the left midlung at the third to fourth intercostal space. Note is made of moderate to large sided organizing hematoma in the posterior lateral left thorax thoracic chest wall and subcutaneous tissue. Today's chest x-ray reveals chest tubes in place. Extensive pleural parenchymal opacities persist throughout the left hemithorax. A loculated component along the lateral mid lung may be slightly decreased in size. She is status post 2 units of packed red blood cells this admission. Current hemoglobin 7.8. White count 15.7. Sodium 133. Potassium 4.2. Creatinine 0.43. She remains on bronchodilators, antibiotics in the form of aztreonam, vancomycin, Levaquin. The patient is seen today 04/03/2020 in follow-up in the intensive care unit. Postoperative day #4. She is awake and alert in no acute distress. Currently sitting up in bed. Maintaining good O2 saturation in the 90s on 2 L/m per nasal cannula. 0.9 normal saline at 30 mL per hour. Chest x-ray shows significant subcutaneous emphysema, rounded opacity within the left peripheral midlung. Improving infiltrates in the left lung field. No evidence of pneumothorax. 2 left-sided catheters remain in place. She is working well with the incentive spirometer. She is status post 2 units of packed red blood cells this admission. Current hemoglobin 7.9. Thoracic fluid cultures revealed no growth. Wound cultures reveal no growth. Pathology findings revealed fibrin debris with acute and chronic inflammation and a few reactive mesothelial elements. Negative for neoplasm. White count 14.2. Sodium 133. Potassium 2.9. Creatinine 0.39. Continues on bronchodilators, aztreonam, Levaquin. Heparin for DVT prophylaxis. Patient is seen today 04/04/2020 in follow-up in the intensive care unit. Postoperative day #5. She is sitting up in a chair at the bedside. Awake and alert in no acute distress. She denies any worsening shortness of breath, cough or congestion. She is maintaining O2 saturation the 90s on room air. 0.9 normal saline at 30 MLS per hour. She did have a brief episode of atrial fibrillation with a rapid ventricular response last night. She's had some episodes of hypotension. Her Coreg was discontinued and she was started on low- dose metoprolol. Chest x-ray reveals postsurgical changes the left lung ray demonstrated. Improved left sided pleural air collection on the current study and improved left-sided volume loss. Some question of possible left-sided pneumothorax. YASMEEN drain remains to low continuous wall suction. Chest tube was placed to waterseal. White count 16.9. Hemoglobin 8.2. Sodium 133. Potassium 4.0. Creatinine 0.40. She remains on bronchodilators. Working well with the incentive spirometer. Antibiotics in the form of aztreonam and Levaquin. Objective - Vital Signs Vital signs: Vital Signs Temp 97.7 F 04/04/20 08:00 Pulse 82 04/04/20 09:00 Resp 18 04/04/20 09:00 BP 80/65 04/04/20 09:00 Pulse Ox 93 L 04/04/20 09:00 Intake & Output 04/03/20 04/04/20 04/04/20 18:59 06:59 18:59 Intake Total 530 360 90 Output Total 370 900 150 Balance 160 -540 -60 Weight 69.8 kg 66.3 kg Intake: IV 530 360 90 Aztreonam 2 gm In Sodium 200 Chloride 0.9% 100 ml @ 33 .3 mls/hr IVPB Q8HR [facility] Rx#:[id number] Sodium Chloride 0.9% 1, 330 360 90 000 ml @ 30 mls/hr IV . Q24H [facility] Rx#:[id number] Output: Chest Tube Drainage 70 100 Chest tube #2 Anterior 70 50 YASMEEN drains 0 50 Urine 300 800 150 Other: Voiding Method Toilet Toilet Toilet Diaper Diaper Diaper Incontinent Incontinent Incontinent # Voids 1 0 # Bowel Movements 1 ABP, PAP, CO, CI - Last Documented Arterial Blood Pressure 141/53 - Exam GENERAL EXAM: Alert, pleasant 69-year-old female patient, currently up in a chair at the bedside, on room air, fairly comfortable in no apparent distress. HEAD: Normocephalic. EYES: Normal reaction of pupils, equal size. NOSE: Clear with pink turbinates. THROAT: No erythema or exudates. NECK: No masses, no JVD. CHEST: Left-sided chest tube and YASMEEN drain in place. LUNGS: Equal air entry with bilateral scattered rhonchi more so on the left lung CVS: S1 and S2 normal with no audible murmur, regular rhythm. ABDOMEN: No hepatosplenomegaly, normal bowel sounds, no guarding or rigidity. SPINE: No scoliosis or deformity SKIN: No rashes CENTRAL NERVOUS SYSTEM: No focal deficits, tone is normal in all 4 extremities. EXTREMITIES: There is no peripheral edema. No clubbing, no cyanosis. Peripheral pulses are intact. - Labs CBC & Chem 7: 04/04/20 05:32 04/04/20 05:32 Labs: Abnormal Lab Results - Last 24 Hours (Table) 04/04/20 04/04/20 Range/Units 05:32 05:32 WBC 16.9 H (3.8-10.6) k/uL RBC 3.04 L (3.80-5.40) m/uL Hgb 8.2 L (11.4-16.0) gm/dL Hct 26.0 L (34.0-46.0) % Plt Count 798 H (150-450) k/uL Neutrophils # 12.8 H (1.3-7.7) k/uL Monocytes # 1.1 H (0-1.0) k/uL Sodium 133 L (137-145) mmol/L Carbon Dioxide 31 H (22-30) mmol/L Creatinine 0.40 L (0.52-1.04) mg/dL Glucose 112 H (74-99) mg/dL Calcium 8.2 L (8.4-10.2) mg/dL Microbiology - Last 24 Hours (Table) 03/30/20 09:45 Anaerobic Culture - Final Other - Other Assessment and Plan Assessment: 1 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 Status post Left posterior lateral thoracotomy, mobilization of latissimus muscle flap, exploratory thoracotomy through the fourth interspace, closure of bronchopleural fistula, decortication of left pleural space and portion of the left lower lobe, cryoablation of intercostal nerves L2 through L6, reinforcement of the bronchopleural fistula closure and modification in the left pleural space with the latissimus dorsi flap. Post operative day #5. Remains on antibiotics in the form of aztreonam and Levaquin Chest x-ray from today 04/03/2020 reveals rounded opacity within the left peripheral midlung, 2 left-sided catheters in place. Improving infiltrates felt the left lung field. No pneumothorax is evident. Right lung is clear. 2 Bronchopleural fistula, left upper lobe apical stump status post fiberoptic bronchoscopy, left chest tube placement. Postoperative day #6 3 Squamous cell carcinoma of the left lung, status post robotically assisted left upper lobectomy with mediastinal lymph node dissection on 03/13/2020. 4 New-onset atrial fibrillation requiring Cardizem drip, currently in sinus rhythm 5 Moderate to severe chronic obstructive pulmonary disease with FEV1 value 72% of predicted 6 History of breast cancer status post left mastectomy 7 Carotid artery disease status post left carotid endarterectomy 8 History of chronic tobacco dependence 9 History of degenerative joint disease Plan: The patient was seen and evaluated by Dr. Renteria Chest x-ray and labs reviewed Continue antibiotics and bronchodilators Encouraged increased use of the incentive spirometer and cough and deep breathing exercises Increase her activity as tolerated We'll await follow-up chest x-ray today We will continue to follow and make further recommendations based on her clinical status I, the cosigning physician, performed a history & physical examination of the patient. Lungs sounds with bilateral scattered rhonchi left greater than right. Maintaining good O2 saturations in the 90s on room air. I discussed the assessment and plan of care with my nurse practitioner, Arminda Owen. I attest to the above note as dictated by her.
[2020-04-04] MEDS: LEVOFLOXACIN 750 MG TAB PO SCH (14:27)
[2020-04-04] MEDS: AMIODARONE 300 MG in DEXTROSE 5% IN WATER 250 ML IV SCH ×2 (16:08)
--- NOTE | 2020-04-04 16:49 | PN ---
PROGRESS NOTE DATE OF SERVICE: 04/04/2020 REASON FOR FOLLOWUP: Pneumonia. INTERVAL HISTORY: The patient is currently afebrile. Patient is breathing more comfortably. Denies having any chest pain, shortness of breath. Minimal cough. Occasional sputum. No nausea. No vomiting. No abdominal pain. No diarrhea. PHYSICAL EXAMINATION: Blood pressure 110/62 with a pulse of 91, temperature is 97.7. She is 95% on room air. General description is an elderly female up in the chair in no distress. Respiratory system: Unlabored breathing, decreased intensity of breath sounds. No wheeze. Heart S1, S2. Regular rate and rhythm. Abdomen soft. No tenderness. LABS: Hemoglobin 8.1, white count 16.9, BUN of 9, creatinine 0.40. The bronch and culture so far negative. DIAGNOSTIC IMPRESSION AND PLAN: Patient with recent left upper lobectomy admitted to the hospital with concern for possible empyema status post chest tube placement and bronch. Culture initially showed gram negative however culture did not grow anything later. She is currently covered on Azactam because of ANTIBIOTIC ALLERGIES along with Levaquin. White count is still mildly elevated, being monitored closely and continue supportive care. MMODL / IJN: [id number] / LEE
[2020-04-04] MEDS: SENNOSIDES-DOCUSATE SODIUM 1 EACH TAB PO SCH (20:59)
[2020-04-04] MEDS: METOPROLOL TARTRATE 25 MG TAB PO SCH (21:04)
[2020-04-05] MEDS: AZTREONAM 2 GM in SODIUM CHLORIDE 0.9% 100 ML IVPB SCH ×3 (00:30→16:40)
[2020-04-05] MEDS: AMIODARONE 300 MG in DEXTROSE 5% IN WATER 250 ML IV SCH ×2 (01:17)
[2020-04-05 04:37] LABS: Anisocytosis Slight; HCT 27.6 % (34.0-46.0); HGB 8.8 gm/dL (11.4-16.0); Hypochromasia Slight; MCH 27.3 pg (25.0-35.0); MCHC 31.7 g/dL (31.0-37.0); Mean Platelet Volume 6.3; Platelet Count 850 k/uL (150-450); RBC 3.21 m/uL (3.80-5.40); RDW 16.1 % (11.5-15.5); WBC 16.7 k/uL (3.8-10.6)
[2020-04-05 04:48] LABS: African American GFR (CKD) >90 (>60 ml/min/1.73 sqM); Anion Gap 5 mmol/L; Blood Urea Nitrogen 9 mg/dL (7-17); Calcium 8.6 mg/dL (8.4-10.2); Carbon Dioxide 27 mmol/L (22-30); Chloride 102 mmol/L (98-107); Glucose 124 mg/dL (74-99); Non-African American GFR(CKD) >90 (>60 ml/min/1.73 sqM); Potassium 3.9 mmol/L (3.5-5.1); Sodium 134 mmol/L (137-145)
--- NOTE | 2020-04-05 07:02 | XR ---
EXAMINATION TYPE: XR chest 1V portable DATE OF EXAM: 04/05/2020 CLINICAL HISTORY: Difficulty breathing progress study. Postlobectomy. TECHNIQUE: Single AP portable semiupright view of the chest is obtained. COMPARISON: Chest x-ray from one day earlier and older studies FINDINGS: Stable right internal jugular central venous catheter. There are several left-sided chest tubes redemonstrated. Stable left-sided pleural air collection superiorly and laterally on the current study. Left midlung opacity remains present. Overlying subcutaneous emphysema redemonstrated. Left Axillary surgical clip s redemonstrated. Stable Small to moderate size left basilar pleural fluid collection near chest tube . Underlying mild underlying emphysematous change. Right lung remains clear. No new mediastinal shift . Cardiac silhouette size stable and upper limits of normal. Stable slight Left-sided volume loss . O sseous structures remain intact. IMPRESSION: Postsurgical changes left lung redemonstrated. Stable small size left-sided pleural air c ollection on current study and mild left-sided volume loss along with stable small to moderate-sized left basilar pleural fluid collection. No new infiltrate is seen.
[2020-04-05] MEDS: IPRATROPIUM-ALBUTEROL 3 ML NEB INHALATION SCH ×3 (07:04→19:13)
[2020-04-05] MEDS ORDERED: SENNOSIDES-DOCUSATE SODIUM 1 EACH TAB PO PRN (07:13)
[2020-04-05] MEDS: METOPROLOL TARTRATE 25 MG TAB PO SCH ×2 (07:50→19:59)
[2020-04-05] MEDS: HEPARIN SODIUM,PORCINE 5,000 UNIT/ML 1 ML VIAL SQ SCH ×3 (07:50→23:27)
[2020-04-05] MEDS: ZINC SULFATE 220 MG CAP PO SCH (07:51)
[2020-04-05] MEDS: guaiFENesin 600 MG TABLET.ER PO SCH ×2 (07:51→19:59)
[2020-04-05] MEDS: MAGNESIUM OXIDE 400 MG TAB PO SCH (07:51)
[2020-04-05] MEDS: LETROZOLE 2.5 MG TAB PO SCH (07:53)
[2020-04-05] MEDS: CALCIUM CARB-VIT D 500 MG-5 MCG TAB PO SCH (07:53)
[2020-04-05] MEDS ORDERED: POTASSIUM CHLORIDE ER 20 MEQ TAB.ER PO SCH (08:00)
[2020-04-05] MEDS: AMIODARONE 200 MG TAB PO SCH ×2 (08:06→19:59)
--- NOTE | 2020-04-05 08:20 | P.PN ---
Subjective Progress Note Date: 04/05/20 Principal diagnosis: Paroxysmal atrial fibrillation This is a 69-year-old female patient who is status post recent left upper lobectomy who we consulted to see her for brief episode of paroxysmal atrial fibrillation. The patient was seen today March 052020. She stated "I feel better". Yesterday she was started on metoprolol tartrate and also amiodarone IV. She did not have anymore episodes of atrial fibrillation. We'll continue the current dose of metoprolol and also switch her to amiodarone by mouth. The hemoglobin continues to be stable. The chest x-ray showed left sided air collection. She is not on any vasopressors anymore. Objective - Vital Signs Vital signs: Vital Signs Temp 97.9 F 04/05/20 04:00 Pulse 91 04/05/20 08:00 Resp 18 04/05/20 08:00 BP 129/65 04/05/20 08:00 Pulse Ox 96 04/05/20 08:00 Intake & Output 04/04/20 04/05/20 04/05/20 18:59 06:59 18:59 Intake Total 460 718.75 130 Output Total 541 3400 Balance -81 -2681.25 130 Weight 67.3 kg Intake: IV 460 490 30 Aztreonam 2 gm In Sodium 100 100 Chloride 0.9% 100 ml @ 33 .3 mls/hr IVPB Q8HR [facility] Rx#:[id number] Sodium Chloride 0.9% 1, 360 390 30 000 ml @ 30 mls/hr IV . Q24H [facility] Rx#:[id number] Intake, IV Titration 228.75 Amount Amiodarone 300 mg In 228.75 Dextrose 5% in Water 250 ml @ 0.5 MG/MIN 25 mls/hr IV .Q10H [facility] Rx#: [id number] Oral 100 Output: Chest Tube Drainage 90 Chest tube #2 Anterior 40 YASMEEN drains 50 Urine 450 3400 Urine/Stool Mix 1 Other: Voiding Method Toilet Toilet Toilet Diaper Diaper Diaper Incontinent Incontinent Incontinent # Voids 0 1 ABP, PAP, CO, CI - Last Documented Arterial Blood Pressure 141/53 - Constitutional General appearance: Present: no acute distress - Respiratory Respiratory: left: diminished - Cardiovascular Rhythm: regular Heart sounds: normal: S1, S2 - Labs CBC & Chem 7: 01/02/21 04:17 04/05/20 04:17 Labs: Abnormal Lab Results - Last 24 Hours (Table) 04/05/20 04/05/20 Range/Units 04:17 04:17 WBC 16.7 H (3.8-10.6) k/uL RBC 3.21 L (3.80-5.40) m/uL Hgb 8.8 L (11.4-16.0) gm/dL Hct 27.6 L (34.0-46.0) % RDW 16.1 H (11.5-15.5) % Plt Count 850 H (150-450) k/uL Sodium 134 L (137-145) mmol/L Creatinine 0.41 L (0.52-1.04) mg/dL Glucose 124 H (74-99) mg/dL Assessment and Plan Assessment: Assessment #1 paroxysmal atrial fibrillation #2 status post recent left upper lobectomy #3 left pleural effusion and status post chest tube #4 carotid disease #5 marginal blood pressure Plan #1 DC amiodarone IV and start the patient on amiodarone by mouth #2 continue the current dose of metoprolol tartrate #3 monitor the hemoglobin
--- NOTE | 2020-04-05 08:54 | P.PN ---
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 Previous medical history of squamous cell carcinoma of the left lung status post robotically assisted left upper lobectomy with mediastinal lymph node dissection and repair of left main bronchus on 03/13/2020 with pathology consistent with T2b, N0, M0, breast cancer status post left mastectomy in 2006 with chemo, previous tobacco dependence with cessation in February 2020, moderate chronic restrictive pulmonary disease with a recent FEV1 value 72% of predicted value, hypertension, left carotid stenosis status post left carotid endarterectomy in 2019, degenerative joint disease. POD #6 Left posterior lateral thoracotomy, mobilization of latissimus muscle flap, exploratory thoracotomy through the fourth intercostal space, closure of bronchopleural fistula, decortication of left pleural space and portion of the left lower lobe, cryoablation of intercostal nerves L2 through L6, reinforcement of the bronchopleural fistula closure and modification in the left pleural space with the latissimus dorsi flap. POD #7 Fiberoptic bronchoscopy, left chest tube placement. Postoperative acute blood loss anemia, expected, dilutional. The patient is currently sitting up in a recliner in no acute distress. She states pain is well controlled on current pain medication regimen, denies shortness of breath except after walking in hallway. States she had a much better night. Coreg switched to lopressor yesterday, also started on IV amio per cardiology. Left pleural chest tube and 2 YASMEEN drains continue to suction wi th continuous air leak present in chest tube chamber. We did attempt to place CT to water seal for 2 hours yesterday, placed back to continuous wall suction. She has ambulated in the hallway several times without difficulty. Levaquin, aztreonam continue per infectious disease. Daughter continues to be updated frequently. Objective - Vital Signs Vital signs: Vital Signs Temp 97.9 F 04/05/20 04:00 Pulse 91 04/05/20 08:00 Resp 18 04/05/20 08:00 BP 129/65 04/05/20 08:00 Pulse Ox 96 04/05/20 08:00 Intake & Output 04/04/20 04/05/20 04/05/20 18:59 06:59 18:59 Intake Total 460 718.75 130 Output Total 541 3400 Balance -81 -2681.25 130 Weight 67.3 kg Intake: IV 460 490 30 Aztreonam 2 gm In Sodium 100 100 Chloride 0.9% 100 ml @ 33 .3 mls/hr IVPB Q8HR [facility] Rx#:[id number] Sodium Chloride 0.9% 1, 360 390 30 000 ml @ 30 mls/hr IV . Q24H [facility] Rx#:[id number] Intake, IV Titration 228.75 Amount Amiodarone 300 mg In 228.75 Dextrose 5% in Water 250 ml @ 0.5 MG/MIN 25 mls/hr IV .Q10H [facility] Rx#: [id number] Oral 100 Output: Chest Tube Drainage 90 Chest tube #2 Anterior 40 YASMEEN drains 50 Urine 450 3400 Urine/Stool Mix 1 Other: Voiding Method Toilet Toilet Toilet Diaper Diaper Diaper Incontinent Incontinent Incontinent # Voids 0 1 ABP, PAP, CO, CI - Last Documented Arterial Blood Pressure 141/53 - Constitutional General appearance: Present: cooperative, no acute distress - Respiratory Details: Lung sounds diminished bilaterally. Respirations even, non-labored. Currently on room air with saturations in the mid 90s. Able to achieve 1250 mL on her incentive spirometer, strong cough. Left pleural chest tube present and connected to continuous wall suction, 150 mL serosanguinous output in the last 24 hours, continuous air leak present. Two JPs present to continuous wall suction, 100 mL sanguinous drainage in the last 24 hours. - Cardiovascular Details: S1/S2 present, regular rate and rhythm, sinus rhythm on telemetry with heart rate in the 90s. No edema present. No calf pain or tenderness present. Antiembolism stockings, SCDs present. Right internal jugular central line present. - Gastrointestinal Gastrointestinal Comment(s): Abdomen soft, non-distended, non-tender. Active bowel sounds present in all 4 quadrants. Tolerating oral intake. Positive bowel movement 04/04/20 - Genitourinary Genitourinary Comment(s): Patient continues to void with occasional incontinence - Integumentary Integumentary Comment(s): Skin is warm and dry. Left lateral thoracotomy incision clean, dry and approximated. No drainage or redness is present. Some swelling to her left posterior chest wall at her surgical site. Soft and nontender to palpate. - Neurologic Neurologic: Present: CNII-XII intact - Musculoskeletal Musculoskeletal: Present: gait normal, strength equal bilaterally - Psychiatric Psychiatric: Present: A&O x's 3, appropriate affect, intact judgment & insight - Allied health notes Allied health notes reviewed: nursing - Labs CBC & Chem 7: 04/05/20 04:17 04/05/20 04:17 Labs: Abnormal Lab Results - Last 24 Hours (Table) 04/05/20 04/05/20 Range/Units 04:17 04:17 WBC 16.7 H (3.8-10.6) k/uL RBC 3.21 L (3.80-5.40) m/uL Hgb 8.8 L (11.4-16.0) gm/dL Hct 27.6 L (34.0-46.0) % RDW 16.1 H (11.5-15.5) % Plt Count 850 H (150-450) k/uL Sodium 134 L (137-145) mmol/L Creatinine 0.41 L (0.52-1.04) mg/dL Glucose 124 H (74-99) mg/dL - Imaging and Cardiology Chest x-ray: report reviewed, image reviewed Assessment and Plan Assessment: 1. Empyema left chest with bronchopleural fistula status post fiberoptic bronchoscopy with left chest tube placement, left posterior lateral thoracotomy, mobilization of latissimus muscle flap, exploratory thoracotomy through the fourth intercostal space, closure of bronchopleural fistula, decortication of left pleural space and portion of the left lower lobe, cryoablation of intercostal nerves L2 through L6, reinforcement of the bronchopleural fistula closure and modification in the left pleural space with the latissimus dorsi flap 2. Leukocytosis, secondary to empyema 3. New onset atrial fibrillation with RVR 4. Squamous cell carcinoma of the left lung status post robotically assisted left upper lobectomy with mediastinal lymph node dissection and repair of left main bronchus on 03/13/2020 with pathology consistent with T2b, N0, M0 5. Breast cancer status post left mastectomy in 2006 with chemo 6. Previous tobacco dependence with cessation in February 2020 7. Moderate chronic restrictive pulmonary disease with a recent FEV1 value 72% of predicted value 8. Hypertension 9. Left carotid stenosis status post left carotid endarterectomy in 2018 10. Degenerative joint disease 11. Postoperative acute blood loss anemia, expected, dilutional Plan: 1. Continue left pleural chest tube, left YASMEEN pleural tube to low continuous wall suction at -20 cm H2O. Continue to monitor for airleak resolution. Record strict inaccurate I's and O's. 2. Oxygen as needed, occasionally at night with sleeping. Encourage use of her incentive spirometry 10 times every hour while awake. 3. Bronchodilator management per pulmonology 4. Atrial fibrillation management per cardiology, continue lopressor, amio transitioned to oral. No anticoagulation at this time 5. Continue to monitor daily labs and chest x-rays. 6. GI and DVT prophylaxis. 7. Continue to reinforce the importance of continued smoking cessation. 8. Antibiotic management per infectious disease recommendations, currently on Levaquin and aztreonam for antibiotic coverage. Remains afebrile. Bronchial washings, cultures negative. 9. Increase activity as tolerated, out of bed for all meals, ambulate as tolerated. Physical and occupational therapy following. 10. Pain control per current medication regimen 11. Keep in ICU for close monitoring 12. More recommendations to follow based on patient's clinical course. Time with Patient: Greater than 30
--- NOTE | 2020-04-05 11:44 | P.PN ---
Subjective Progress Note Date: 04/05/20 Principal diagnosis: Large left pneumothorax, new onset atrial fibrillation On 03/31/2020 the patient is being seen for a follow-up. 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 The patient was taken to the operating room approximately 2 weeks ago and the patient underwent a robotic-assisted left upper lobe resection. Postop, the patient was discharged home to be readmitted back to the hospital rule out empyema and air-fluid levels in the left chest along with a new onset atrial fibrillation and elevated white cell count. 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 A lesser the chest tube was placed at a time and drained turbid fluid. Gram stain was positive for gram-negative rods. Subsequently, the patient was taken back to the operating room and the patient underwent a thoracotomy and closure of a bronco pleural fistula with a muscle flap. The patient underwent a left posterior lateral thoracotomy, mobilization of the latissimus muscle flap, exploratory thoracotomy through the fourth int ercostal space, closure of the bronchopleural fistula and decortication of the left pleural space and portion of the left lower lobe and cryo-ablation of the intercostal nerves II through through L6 was done and reinforcement of the fistula was done and modification of the left pleural space with latissimus dorsi flap. The patient intraoperatively was found to have an empyema of the left chest as mentioned. Postop, the patient was extubated and the patient was brought back to the intensive care unit for further monitoring. She was placed on oxygen at 3 L about 2 by nasal cannula. There was a left-sided chest tube in place with a Pleur-evac and there were also 2 YASMEEN drains within the pleural space. The patient was being covered with broad-spectrum antibiotics including a combination of Levaquin, aztreonam and vancomycin pending further cultures from the pleural space. The patient was on tramadol 50 mg every 6 hours when necessary basis for pain control. The patient is also on Woodward 53 25 one tablet every 4-6 hours on a when necessary basis for pain control. The patient recovered from the atrial fibrillation and the patient is currently in sinus rhythm. Cardizem drip has been discontinued and the patient was placed on Coreg 6.25 mg by mouth twice a day. She is on heparin subcu for DVT prophylaxis. IV fluids running at 40 mL an hour of normal saline. Chest x-ray revealed a pleural air fluid levels/pneumothorax and the left upper chest area measuring 2.1 cm in size. A small left-sided pleural effusion/consolidation of the left lung base. There were 2 drains within the pleural space in addition to surgical changes are thoracotomy. The patient has a right IJ triple-lumen catheter in place. Liver output, the chest tube has put out approximately 20 mL over the p ast 24 hours and there is no evidence of any air leak. As for the YASMEEN drains,one in the pleural space and drained approximately 450 over the past 24 hours. Whereas the other YASMEEN drains are present in her lap and drained 60 mL and 20 mL over the past 12 hours. She is awake and alert. She is using incentive spirometer. She is afebrile. Hemodynamically stable. She is on no pressors. IV fluids are running at the rate of 40 mL an hour. She is tolerating her diet. Today's evaluation of 04/01/2020, the patient is being seen for a follow-up. The patient is doing essentially the same as yesterday. She is using incentive spirometer and she is pulling approximately 800 mL on her I asked. The patient had a follow-up chest x-ray today that showed no major interval change compared to yesterday's chest x-ray. I do not appreciate any pneumothorax. All of the drains in the tubes are still in place. Note that the patient has a regular posterior chest to talk with of which has been minimal in the order of 10 mL over the past 24 hours and it's still has some minimal amount of intermittent air leak. The YASMEEN drains in the flap is in order of 250 mL in the anterior pain and 125 in the posterior drain over the past 8 hours. His another third drain in the pleural space output of which is still 120 mL over the past 24 hours. Cultures still pending for now. There is gram-negative bacteria. The patient remains on a combination of Levaquin, aztreonam and vancomycin. Surgical wound site is dry clean and intact. The patient has some swelling along the left posterior chest area at the surgical sites. No hematoma collection. She has a congested cough. Unable to bring up much sputum. She is afebrile. Her white cell count has dropped and the count is down to 15. The patient remains on normal saline at the rate of 100 mL an hour. He was having a low urine output in the order of 10-20 mL yesterday and this is improved with the increase the fluid rates. Creatinine is stable for now. Her pain is under adequate control and she is on Woodward. She has received cryoablation. She is postop day #2. Cardiac rhythm is sinus. There is no atrial fibrillation. The patient is off all drips and she is utilizing Coreg for rate control. The patient is seen today 04/02/2020 in follow-up in the intensive care unit. She is currently sitting up in bed. Awake and alert in no acute distress. She is maintaining good O2 saturations in the 90s on room air now. 0.9 normal sitting in 100 ML's per hour. She is postoperative day #3 of a left thoracotomy with deep decortication and muscle flap. Computed tomography scan of the chest yesterday revealed postsurgical changes of the left lung. 2 left-sided chest tubes in pleural spaces containing a small amount of residual fluid. There is a chest wall herniation causing increased opacity in the left midlung at the third to fourth intercostal space. Note is made of moderate to large sided organizing hematoma in the posterior lateral left thorax thoracic chest wall and subcutaneous tissue. Today's chest x-ray reveals chest tubes in place. Extensive pleural parenchymal opacities persist throughout the left hemithorax. A loculated component along the lateral mid lung may be slightly decreased in size. She is status post 2 units of packed red blood cells this admission. Current hemoglobin 7.8. White count 15.7. Sodium 133. Potassium 4.2. Creatinine 0.43. She remains on bronchodilators, antibiotics in the form of aztreonam, vancomycin, Levaquin. The patient is seen today 04/03/2020 in follow-up in the intensive care unit. Postoperative day #4. She is awake and alert in no acute distress. Currently sitting up in bed. Maintaining good O2 saturation in the 90s on 2 L/m per nasal cannula. 0.9 normal saline at 30 mL per hour. Chest x-ray shows significant subcutaneous emphysema, rounded opacity within the left peripheral midlung. Improving infiltrates in the left lung field. No evidence of pneumothorax. 2 left-sided catheters remain in place. She is working well with the incentive spirometer. She is status post 2 units of packed red blood cells this admission. Current hemoglobin 7.9. Thoracic fluid cultures revealed no growth. Wound cultures reveal no growth. Pathology findings revealed fibrin debris with acute and chronic inflammation and a few reactive mesothelial elements. Negative for neoplasm. White count 14.2. Sodium 133. Potassium 2.9. Creatinine 0.39. Continues on bronchodilators, aztreonam, Levaquin. Heparin for DVT prophylaxis. Patient is seen today 04/04/2020 in follow-up in the intensive care unit. Postoperative day #5. She is sitting up in a chair at the bedside. Awake and alert in no acute distress. She denies any worsening shortness of breath, cough or congestion. She is maintaining O2 saturation the 90s on room air. 0.9 normal saline at 30 MLS per hour. She did have a brief episode of atrial fibrillation with a rapid ventricular response last night. She's had some episodes of hypotension. Her Coreg was discontinued and she was started on low- dose metoprolol. Chest x-ray reveals postsurgical changes the left lung ray demonstrated. Improved left sided pleural air collection on the current study and improved left-sided volume loss. Some question of possible left-sided pneumothorax. YASMEEN drain remains to low continuous wall suction. Chest tube was placed to waterseal. White count 16.9. Hemoglobin 8.2. Sodium 133. Potassium 4.0. Creatinine 0.40. She remains on bronchodilators. Working well with the incentive spirometer. Antibiotics in the form of aztreonam and Levaquin. The patient is seen today 04/05/2020 in follow-up in the intensive care unit. Postoperative day #6. She is currently sitting up in a chair at the bedside. Awake and alert in no acute distress. She denies any worsening shortness of breath, cough or congestion. No hemoptysis. Currently maintaining O2 saturations in the 90s on room air. She has a 0.9 normal saline at 10 MLS per hour. Amiodarone drip at 0.5 mg/m. No recent arrhythmias. Currently in normal sinus rhythm. Left pleural chest tube and 2 YASMEEN drains remain in place to continue continuous suction with a continuous air leak and the atrium. Chest x- ray reveals postsurgical changes in the left lung ray demonstrated. Stable small sized left pleural air collection on current study and mild left volume loss along with stable small to moderate size left basilar pleural fluid col lection. No new infiltrates seen. She is status post 2 units of packed red blood cells this admission. Current hemoglobin 8.8. Fluid cultures and wound cultures reveal no growth. White count 16.7. Sodium 134. Potassium 3.9. Creatinine 0.41. She remains on bronchodilators, aztreonam and Levaquin. Objective - Vital Signs Vital signs: Vital Signs Temp 97.9 F 04/05/20 04:00 Pulse 79 04/05/20 11:00 Resp 18 04/05/20 11:00 BP 112/70 04/05/20 11:00 Pulse Ox 96 04/05/20 11:00 Intake & Output 04/04/20 04/05/20 04/05/20 18:59 06:59 18:59 Intake Total 460 718.75 220 Output Total 541 3400 300 Balance -81 -2681.25 -80 Weight 67.3 kg Intake: IV 460 490 120 Aztreonam 2 gm In Sodium 100 100 Chloride 0.9% 100 ml @ 33 .3 mls/hr IVPB Q8HR [facility] Rx#:[id number] Sodium Chloride 0.9% 1, 360 390 120 000 ml @ 30 mls/hr IV . Q24H [facility] Rx#:[id number] Intake, IV Titration 228.75 Amount Amiodarone 300 mg In 228.75 Dextrose 5% in Water 250 ml @ 0.5 MG/MIN 25 mls/hr IV .Q10H [facility] Rx#: [id number] Oral 100 Output: Chest Tube Drainage 90 Chest tube #2 Anterior 40 YASMEEN drains 50 Urine 450 3400 300 Urine/Stool Mix 1 Other: Voiding Method Toilet Toilet Toilet Diaper Diaper Diaper Incontinent Incontinent Incontinent # Voids 0 1 ABP, PAP, CO, CI - Last Documented Arterial Blood Pressure 141/53 - Exam GENERAL EXAM: Alert, pleasant 69-year-old female patient, currently up in a chair at the bedside, on room air, fairly comfortable in no apparent distress. HEAD: Normocephalic. EYES: Normal reaction of pupils, equal size. NOSE: Clear with pink turbinates. THROAT: No erythema or exudates. NECK: No masses, no JVD. CHEST: Left-sided chest tube and YASMEEN drains x [address] To wall suction. Positive air leak. LUNGS: Equal air entry with bilateral scattered rhonchi more so on the left lung CVS: S1 and S2 normal with no audible murmur, regular rhythm. ABDOMEN: No hepatosplenomegaly, normal bowel sounds, no guarding or rigidity. SPINE: No scoliosis or deformity SKIN: No rashes CENTRAL NERVOUS SYSTEM: No focal deficits, tone is normal in all 4 extremities. EXTREMITIES: There is no peripheral edema. No clubbing, no cyanosis. Peripheral pulses are intact. 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 Status post Left posterior lateral thoracotomy, mobilization of latissimus muscle flap, exploratory thoracotomy through the fourth interspace, closure of bronchopleural fistula, decortication of left pleural space and portion of the left lower lobe, cryoablation of intercostal nerves L2 through L6, reinforcement of the bronchopleural fistula closure and modification in the left pleural space with the latissimus dorsi flap. Post operative day #6. Re millie on antibiotics in the form of aztreonam and Levaquin Chest x-ray from today continue her second 2020 reveals postoperative changes in the left lung will be demonstrated. Stable small sized left sided pleural air collection on current study and mild left-sided volume loss along with stable sm all to moderate-sized left basilar lateral fluid collection. No new infiltrates seen. Left-sided chest tube and 2 YASMEEN drains remain in place. Positive air leak. 2 Bronchopleural fistula, left upper lobe apical stump status post fiberoptic bronchoscopy, left chest tube placement. Postoperative day #7 3 Squamous cell carcinoma of the left lung, status post robotically assisted left upper lobectomy with mediastinal lymph node dissection on 03/13/2020. 4 New-onset atrial fibrillation requiring Cardizem drip, currently in sinus rhythm 5 Moderate to severe chronic obstructive pulmonary disease with FEV1 value 72% of predicted 6 History of breast cancer status post left mastectomy 7 Carotid artery disease status post left carotid endarterectomy 8 History of chronic tobacco dependence 9 History of degenerative joint disease Plan: The patient was seen and evaluated by Dr. Renteria Chest x-ray and labs reviewed Continue antibiotics and bronchodilators Encouraged increased use of the incentive spirometer and cough and deep breathing exercises Increase her activity as tolerated We will continue to follow and make further recommendations based on her clinical status I, the cosigning physician, performed a history & physical examination of the patient. Lungs sounds with bilateral scattered rhonchi left greater than right. Maintaining good O2 saturations in the 90s on room air. I discussed the assessment and plan of care with my nurse practitioner, Arminda Owen. I attest to the above note as dictated by her.
[2020-04-05] MEDS: traMADol 50 MG TAB PO PRN ×2 (12:47→22:32)
--- NOTE | 2020-04-05 15:27 | P.PN ---
Subjective Progress Note Date: 04/05/20 69-year-old female one of Dr. 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 Patient also survival of rest cancer post left mastectomy in 2010 post chemotherapy also she is known to have history of carotid stenosis post left carotid endarterectomy in 2018 previous history of tobacco use she quit in February this year continue to have moderate COPD with FEV1 of 72 percentile history of hypertension hyperlipidemia. Patient left the hospital on March 17 after surgery was seen pulmonary and cardiothoracic surgery on regular basis she returned to the emergency department shortly after midnight today because of worsening dyspnea and shortness of breath with significant tachycardia according to patient she become more symptomatic with rapid ventricular response on and off become more symptomatic causing worsening shortness of breath. Was seen and evaluated demurs department her white blood cell was 18.5 hemoglobin 10.5 hematocrit 32.9 d-dimer was 2.48 patient COVID 19 testing was negative she found to be in A. fib with RVR pulse 153 beats per minutes cardiology were called along with cardiothoracic patient chest x-ray showed pleural effusion and pneumothorax of the left side. She was started on Cardizem drip brought the pulse rate down no anticoagulation was started this point patient was on Plavix since her carotid surgery and no previous history of A. fib her pulse rate used to be well controlled on Coreg 6.25 mg twice a day in the past. Patient will be going to the OR by cardiothoracic and she will have more repair along with chest tube as well. 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 Patient will be back to the ICU after surgery. 03/31: Patient evaluated in the ICU this morning, sitting up in the bedside chair, in no acute distress. She is postop day #1 status post left posterior lateral thoracotomy, closure of the bronchopleural fistula, and cryoablation of the intercostal nerves. Patient still has 2 left-sided chest tubes in place, she continues on Levaquin, vancomycin, and Aztreonam. Cultures are still pending, infectious disease on consult. Repeat chest x-ray shows residual left pneumothorax and left perihilar consolidation. Vital signs are stable, she is afebrile 98.0, heart rate is 90, respiratory 23, temperature 128/57, she's 95% on 3 L via nasal cannula. 04/01: Patient evaluated in the ICU, sitting up in the bedside chair. Nurse states she went to stand patient up to get her out of bed and she had a syncople episode. She was noted to be hypotensive 63/37 and tachycardic with a heart rate of 111. Stat CBC and repeat chest x-ray ordered, patient placed back in bed blood, pressure did come up to 99/47, heart rate 90. Hemoglobin 7.7, platelets 729, sodium 130, creatinine 0.51, BUN 16. Left pleural chest tube in place, left pleural YASMEEN drain in place and continues to drain serosanguineous drainage, left lateral chest YASMEEN drains [address] with bulb suction. Repeat chest x-ray showed some improvement of aeration throughout the remaining left lung post lobectomy, pneumothorax remains. 04/02: Patient remains in the ICU. Patient had chest CT yesterday which showed chest wall herniation causing increase opacity in the left midlung at the third through fourth intercostal space. Large size hematoma in the posterior lateral lower thoracic chest and subcutaneous tissue. Patient's hemoglobin dropped to 6.1 she did receive 2 units of packed red blood cells, hemoglobin went up to 8.4 after the transfusion and dropped to 7.8 this morning. Clinically patient looks much better today, reports she is feeling much better as well. She is off supplemental oxygen and currently 94%, continue to use incentive spirometer, chest tubes remain in place. 04/03: Patient examined in the ICU. Patient was up walking in the [place] yesterday and is doing well. Patient has left pleural chest tube and 2 YASMEEN drains to continuous suction with air leaks. She continues on Levaquin, vancomycin and Aztreonam per infectious disease. Hemoglobin stable, 7.9 this morning, WBC 14.2, sodium 133, BUN 8, creatinine 0.39. She remains afebrile, vital signs are stable she is 97% on 2 L via nasal cannula. Patient did have multiple episodes of paroxysmal atrial fibrillation last night, cardiology is on consult. Cardiology did increase her dose of Coreg to 12.5 twice a day, currently she is rate controlled and converted back to normal sinus rhythm. 04/04 2020: Patient remain in the ICU, still have chest tube in, there is a quite possibility might have pneumothorax and slight leak around the chest tube area a chest x-ray still pending at this point, patient still seen pulmonary and cardiothoracic might need another chest tube or adjustment of her current chest tube area. He'll otherwise pain is under control currently patient is hemodynamically stable. 04/05 2020 patient examined sitting comfortably in the chair. Complains of epigastric tenderness and burning in her chest. The patient denies any chest pain, shortness of breath dizziness or lightheadedness. She does have pain around her chest tube on the left but denies any cough or breathing difficulty. Patient evaluated by neurology with no plan to adjust the chest tubes. Chest x- ray was repeated with stable left pleural area collection and mild lung volume loss along with small to moderate left pleural fluid collection. Vitals are stable temperature of 98.1 pulse 77 and respiratory rate 16 blood pressure 139/72 oxygen saturation 96% on room air. Patient had persistent leukocytosis of 16.7 hemoglobin stable at 8.8 Creatinine 0.41 glucose is stable at 124. Patient stable on bronchodilators and aztreonam and Levaquin. For culture and wound cultures are negative. Constitutional: Denies chills, Denies fever, Denies lethargy, Denies malaise, Denies poor appetite, Denies weakness, Denies weight loss Eyes: denies decreased vision, denies diplopia, denies discharge, denies pain Cardiovascular: Endorses chest pain, endorses decreased exercise tolerance, endorses edema, Denies high blood pressure, Denies irregular heart beat, Denies palpitations, Denies paroxysmal nocturnal dyspnea, Denies rapid heart beat, Denies shortness of breath Respiratory: Denies congestion, Denies cough, Denies cough with sputum, Denies dyspnea, Denies home oxygen, Denies wheezing Gastrointestinal: Endorses abdominal pain, Denies change in bowel habits, Denies coffee ground emesis, Denies early satiety, Denies excessive gas, Denies heartburn, Denies hematemesis, Denies hematochezia, Denies loss of appetite, Denies nausea, Denies vomiting Genitourinary: Denies dysuria, Denies flank pain, Denies kidney stones, Denies menorrhagia, Denies urgency, Denies urinary frequency Musculoskeletal: Denies gait dysfunction, Denies limitation of motion, Denies morning stiffness, Denies muscle cramps Integumentary: Denies rash, Denies wounds, Denies brittle nails, Denies change in hair/nails, Denies darkening of skin Neurological: Denies balance difficulties, Denies change in speech, Denies double vision, Denies gait dysfunction, Denies loss of vision, Denies motor disturbance, Denies numbness, Denies paralysis, Denies paresthesias, Denies seizures Objective - Vital Signs Vital signs: Vital Signs Temp 98.1 F 04/05/20 12:00 Pulse 82 04/05/20 13:00 Resp 21 04/05/20 13:00 BP 139/72 04/05/20 13:00 Pulse Ox 96 04/05/20 13:00 Intake & Output 04/04/20 04/05/20 04/05/20 18:59 06:59 18:59 Intake Total 460 718.75 280 Output Total 541 3400 600 Balance -81 -2681.25 -320 Weight 67.3 kg Intake: IV 460 490 180 Aztreonam 2 gm In Sodium 100 100 Chloride 0.9% 100 ml @ 33 .3 mls/hr IVPB Q8HR [facility] Rx#:[id number] Sodium Chloride 0.9% 1, 360 390 180 000 ml @ 30 mls/hr IV . Q24H [facility] Rx#:[id number] Intake, IV Titration 228.75 Amount Amiodarone 300 mg In 228.75 Dextrose 5% in Water 250 ml @ 0.5 MG/MIN 25 mls/hr IV .Q10H [facility] Rx#: [id number] Oral 100 Output: Chest Tube Drainage 90 Chest tube #2 Anterior 40 YASMEEN drains 50 Urine 450 3400 600 Urine/Stool Mix 1 Other: Voiding Method Toilet Toilet Toilet Diaper Diaper Diaper Incontinent Incontinent Incontinent # Voids 0 1 1 # Bowel Movements 1 ABP, PAP, CO, CI - Last Documented Arterial Blood Pressure 141/53 - Exam General Appearance: Alert, cooperative, mild distress with mild tachypnea Neck HEENT: Supple, no lymphadenopathy, no thyroid enlargement, no carotid bruits. Lungs: Decreased breath sounds in the left side positive for rhonchi Chest Wall: Decrease expansion with deep inspiration scar from her incision on the left side looks fine still have slight soreness pain and discomfort and tenderness in the left side of the rib cage compared to the right chest tube in place Heart: Irregular rate and rhythm, S1, S2 normal, no murmur, rub or gallop. Back: Symmetric, no curvature, ROM normal, no CVA tenderness. Abdomen: Soft, non-tender, bowel sounds active all four quadrants, no masses, no organomegaly. Extremities: Extremities normal, atraumatic, no cyanosis or edema. Pulses: 2+ and symmetric. Skin: Skin color, texture, tugor normal, no rashes or lesions. Neurologic: Alert oriented x3 cranial nerves II through XII intact, no motor deficit, no abnormal balance or gait. - Labs CBC & Chem 7: 04/05/20 04:17 04/05/20 04:17 Labs: Abnormal Lab Results - Last 24 Hours (Table) 04/05/20 04/05/20 Range/Units 04:17 04:17 WBC 16.7 H (3.8-10.6) k/uL RBC 3.21 L (3.80-5.40) m/uL Hgb 8.8 L (11.4-16.0) gm/dL Hct 27.6 L (34.0-46.0) % RDW 16.1 H (11.5-15.5) % Plt Count 850 H (150-450) k/uL Sodium 134 L (137-145) mmol/L Creatinine 0.41 L (0.52-1.04) mg/dL Glucose 124 H (74-99) mg/dL Assessment and Plan Plan: 1 new onset of A. fib with RVR: Amiodarone 400 twice a day and metoprolol 25 twice a day , anticoagulation will be held 2 empyema left chest with bronchopleural fistula status post bronchoscopy with left chest tube placement with post exploratory thoracotomy with cryoablation of the intercostal nerve of L2 through 6. Reinforcement of bronchopleural fistula closure and modification of the left pleural space was done. Continue left pleural chest tube and left YASMEEN pleural tube to low suction at -20. Monitor for air leak. Continue incentive spirometer continue bronchodilators every 4-6 hours continue levofloxacin and aztreonam. Wound cultures and respiratory cultures negative 3 squamous cell carcinoma of the left upper lobe: Post robotic-assisted left upper lobectomy with no dissection and repair of left main bronchus on 03/13 pathology suggestive of T2 b, N0, M0 4 COPD: Patient will be continue on DuoNeb and possible Pulmicort continue O2 and titrate dose higher. 5 PAD: Post left carotid endarterectomy has been doing well since. 6 history of breast cancer post left-sided mastectomy and chemotherapy has been in remission. 7 history of hypertension: Was on Coreg has been doing well. 8 anxiety and panic attack has been on lorazepam. 9 possible Empyema: Was still be on antibiotic till culture from the pleural fluid is done. 10 mild anemia: Mostly iron deficiency continue iron supplement. 11 hypoglycemia: On diet control. 12 pain control: Patient had cryoablation of the intercostal nerve L2 well 6 will continue patient on pain management as well Patient still quite bit sick at this point not been able to do or part spit any physical therapy continue current management and might require PT and subacute rehab eventually.
[2020-04-05] MEDS: LEVOFLOXACIN 750 MG TAB PO SCH (16:40)
[2020-04-05] MEDS: SODIUM CHLORIDE 0.9% 1,000 ML IV SCH (16:40)
--- NOTE | 2020-04-05 21:46 | PN ---
PROGRESS NOTE DATE OF SERVICE: 04/05/2020 REASON FOR FOLLOWUP: Left-sided empyema. INTERVAL HISTORY: Patient is currently afebrile. The patient is breathing more comfortably. Denies any chest pain. Occasional cough. No nausea. No abdominal pain or diarrhea. PHYSICAL EXAMINATION: Blood pressure is 99/70 with a pulse of 89, temperature 98.5, she is 95% on room air. General description is an elderly female up in the bed in no distress. Respiratory system: Unlabored breathing, decreased breath sounds, no wheeze. Heart S1, S2. Regular rate and rhythm. Abdomen soft, no tenderness. LABS: Hemoglobin 8.1, WBC 16.7, BUN of 9, creatinine 0.41. DIAGNOSTIC IMPRESSION AND PLAN: Patient with left-sided empyema in this patient status post chest tube and surgery with recent left upper lobectomy for squamous cell carcinoma. Cultures have been negative so far though the patient's white count still remains to be elevated. She is covered with Azactam. We will add antifungal to see response to the same and monitor clinical course closely. MMODL / IJN: [id number] /
[2020-04-05] MEDS ORDERED: ANIDULAFUNGIN 200 MG in SODIUM CHLORIDE 0.9% 200 ML IVPB ONE (22:00)
[2020-04-06] MEDS: AZTREONAM 2 GM in SODIUM CHLORIDE 0.9% 100 ML IVPB SCH ×4 (00:54→23:25)
[2020-04-06] MEDS: HYDROcodone/APAP 5-325MG 1 EACH TAB PO PRN (04:12)
[2020-04-06 04:13] LABS: Anisocytosis Slight; Basophils # (A) 0.1 k/uL (0-0.2); Basophils % (A) 1 %; Eosinophils # (A) 0.5 k/uL (0-0.7); Eosinophils % (A) 3 %; HCT 26.4 % (34.0-46.0); HGB 8.3 gm/dL (11.4-16.0); Hypochromasia Slight; Lymphocytes # (A) 2.3 k/uL (1.0-4.8); Lymphocytes % (A) 14 %; MCH 27.5 pg (25.0-35.0); MCHC 31.6 g/dL (31.0-37.0); Mean Platelet Volume 6.4; Monocytes # (A) 1.4 k/uL (0-1.0); Monocytes % (A) 9 %; Neutrophils # (A) 11.9 k/uL (1.3-7.7); Neutrophils % (A) 72 %; Platelet Count 903 k/uL (150-450); RBC 3.03 m/uL (3.80-5.40); RDW 16.5 % (11.5-15.5); WBC 16.4 k/uL (3.8-10.6)
[2020-04-06 04:32] LABS: African American GFR (CKD) >90 (>60 ml/min/1.73 sqM); Anion Gap 0 mmol/L; Blood Urea Nitrogen 9 mg/dL (7-17); Calcium 8.6 mg/dL (8.4-10.2); Carbon Dioxide 30 mmol/L (22-30); Chloride 103 mmol/L (98-107); Glucose 101 mg/dL (74-99); Non-African American GFR(CKD) >90 (>60 ml/min/1.73 sqM); Potassium 4.1 mmol/L (3.5-5.1); Sodium 133 mmol/L (137-145)
--- NOTE | 2020-04-06 07:21 | XR ---
EXAMINATION TYPE: XR chest 1V portable DATE OF EXAM: 04/06/2020 CLINICAL HISTORY: Difficulty breathing postlobectomy progress study. TECHNIQUE: Single AP portable semiupright view of the chest is obtained. COMPARISON: Chest x-ray from one day earlier and older studies FINDINGS: Stable right internal jugular central venous catheter. There are several left-sided chest tubes redemonstrated. Stable left-sided pleural air collection superiorly and laterally on the current study. Left midlung opacity remains present. This correlated with herniated lung on a recent CT. Overlying subcutaneous e mphysema redemonstrated. Left Axillary surgical clips redemonstrated. Stable Small to moderate size l eft basilar pleural fluid collection near the inferior chest tube. Underlying mild underlying emphyse matous change. Right lung remains clear. No new mediastinal shift. Cardiac silhouette size stable and upper limits of normal. Osseous structures remain intact. IMPRESSION: Postsurgical changes left lung redemonstrated. Stable small size left-sided pleural air c ollection on current study with chest tubes in place and mild left-sided volume loss along with stabl e small to moderate-sized left basilar pleural fluid collection. No new infiltrate is seen.
[2020-04-06] MEDS: IPRATROPIUM-ALBUTEROL 3 ML NEB INHALATION SCH ×4 (07:54→20:08)
[2020-04-06] MEDS ORDERED: MELATONIN 3 MG TABLET PO PRN (08:16)
--- NOTE | 2020-04-06 08:33 | P.PN ---
Subjective Progress Note Date: 04/06/20 Principal diagnosis: Paroxysmal atrial fibrillation This is an unfortunate 6-year-old female patient with a past medical history significant for carotid disease and prior carotid revascularization as well as history of COPD who was diagnosed recently with left upper lobe cancer and underwent surgery which was uneventful and the patient was discharged in stable medical condition. She presented back to the hospital with increasing shortness of breath and she was diagnosed with empyema of the left chest along with bronchopleural fistula. Currently the patient does have chest to with continuous air leak. We consulted to see the patient for the management of atrial fibrillation which was new to the patient. The patient was seen today March [id number]. She has been maintaining normal sinus mechanism. Currently she is on metoprolol by mouth as well as amiodarone by mouth. We are holding any anticoagulation at this point until we have the green light from the surgical team. The patient continues to have chest tube on the left side. She does have very diminished breathing sounds bilaterally and the chest x-ray unfortunately did not show any improvement. The chest x-ray continues to show fluid and air collection in the left pleura. Otherwise the patient is hemodynamically stable. The hemoglobin is 8.3 down from 8.5. From a cardiovascular standpoint of view, we'll continue the current medical regimen and follow-up with the patient on when necessary case Objective - Vital Signs Vital signs: Vital Signs Temp 98.2 F 04/06/20 04:00 Pulse 79 04/06/20 07:00 Resp 11 L 04/06/20 07:00 BP 128/73 04/06/20 07:00 Pulse Ox 92 L 04/06/20 07:00 Intake & Output 04/05/20 04/06/20 04/06/20 18:59 06:59 18:59 Intake Total 530 960 30 Output Total 600 1595 Balance -70 -635 30 Weight 65.6 kg Intake: IV 330 660 30 Anidulafungin 200 mg In 200 Sodium Chloride 0.9% 200 ml @ 84 mls/hr IVPB ONCE ONE Rx#:[id number] Aztreonam 2 gm In Sodium 100 Chloride 0.9% 100 ml @ 33 .3 mls/hr IVPB Q8HR [facility] Rx#:[id number] Sodium Chloride 0.9% 1, 330 360 30 000 ml @ 30 mls/hr IV . Q24H [facility] Rx#:[id number] Oral 200 300 Output: Chest Tube Drainage 45 Chest tube #2 Anterior 20 YASMEEN drains 25 Urine 600 1550 Other: Voiding Method Toilet Bedside Commode Diaper Diaper Incontinent Incontinent External Catheter # Voids 1 1 # Bowel Movements 1 1 ABP, PAP, CO, CI - Last Documented Arterial Blood Pressure 141/53 - Constitutional General appearance: Present: no acute distress - Respiratory Respiratory: left: diminished - Cardiovascular Rhythm: regular Heart sounds: normal: S1, S2 - Labs CBC & Chem 7: 04/06/20 04:00 04/06/20 04:00 Labs: Abnormal Lab Results - Last 24 Hours (Table) 04/06/20 04/06/20 Range/Units 04:00 04:00 WBC 16.4 H (3.8-10.6) k/uL RBC 3.03 L (3.80-5.40) m/uL Hgb 8.3 L (11.4-16.0) gm/dL Hct 26.4 L (34.0-46.0) % RDW 16.5 H (11.5-15.5) % Plt Count 903 H (150-450) k/uL Neutrophils # 11.9 H (1.3-7.7) k/uL Monocytes # 1.4 H (0-1.0) k/uL Sodium 133 L (137-145) mmol/L Creatinine 0.42 L (0.52-1.04) mg/dL Glucose 101 H (74-99) mg/dL Assessment and Plan Assessment: Assessment #1 paroxysmal atrial fibrillation #2 status post recent left upper lobectomy #3 left pleural effusion and status post chest tube #4 carotid disease Plan #1 continue the current dose of metoprolol by mouth and amiodarone by mouth #2 continue monitoring the patient heart rhythm #3 hold any anticoagulation until we get the green light from the surgical team #4 follow-up with the patient on when necessary case
[2020-04-06] MEDS: CALCIUM CARB-VIT D 500 MG-5 MCG TAB PO SCH (08:45)
[2020-04-06] MEDS: ZINC SULFATE 220 MG CAP PO SCH (08:46)
[2020-04-06] MEDS: MAGNESIUM OXIDE 400 MG TAB PO SCH (08:46)
[2020-04-06] MEDS: guaiFENesin 600 MG TABLET.ER PO SCH ×2 (08:46→20:11)
[2020-04-06] MEDS: LETROZOLE 2.5 MG TAB PO SCH (08:46)
[2020-04-06] MEDS: METOPROLOL TARTRATE 25 MG TAB PO SCH ×2 (08:46→20:14)
[2020-04-06] MEDS: AMIODARONE 200 MG TAB PO SCH ×2 (08:46→20:11)
[2020-04-06] MEDS: HEPARIN SODIUM,PORCINE 5,000 UNIT/ML 1 ML VIAL SQ SCH ×3 (08:46→23:37)
[2020-04-06] MEDS: PANTOPRAZOLE 40 MG/10 ML VIAL IVP SCH (08:48)
[2020-04-06] MEDS: traMADol 50 MG TAB PO PRN ×3 (08:50→23:24)
--- NOTE | 2020-04-06 09:25 | P.PN ---
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 Previous medical history of squamous cell carcinoma of the left lung status post robotically assisted left upper lobectomy with mediastinal lymph node dissection and repair of left main bronchus on 03/13/2020 with pathology consistent with T2b, N0, M0, breast cancer status post left mastectomy in 2006 with chemo, previous tobacco dependence with cessation in February 2020, moderate chronic restrictive pulmonary disease with a recent FEV1 value 72% of predicted value, hypertension, left carotid stenosis status post left carotid endarterectomy in 2019, degenerative joint disease. POD #7 Left posterior lateral thoracotomy, mobilization of latissimus muscle flap, exploratory thoracotomy through the fourth intercostal space, closure of bronchopleural fistula, decortication of left pleural space and portion of the left lower lobe, cryoablation of intercostal nerves L2 through L6, reinforcement of the bronchopleural fistula closure and modification in the left pleural space with the latissimus dorsi flap. POD #8 Fiberoptic bronchoscopy, left chest tube placement. Postoperative acute blood loss anemia, expected, dilutional. The patient is currently sitting up in a recliner in no acute distress. She states pain is well controlled on current pain medication regimen, denies shortness of breath except after walking in hallway. States she had a rough night last night with little sleep. Remains in nornmal sinus rhythm, currently on oral amiodarone and lopressor. Left pleural chest tube and 2 YASMEEN drains c ontinue to suction with continuous air leak present in chest tube chamber. She has ambulated in the hallway several times without difficulty. Levaquin, aztreonam continue per infectious disease, Eraxis added due to continued elevated WBC, remains afebrile. Daughter continues to be updated via phone. Objective - Vital Signs Vital signs: Vital Signs Temp 98.2 F 04/06/20 04:00 Pulse 80 04/06/20 08:41 Resp 11 L 04/06/20 07:00 BP 128/73 04/06/20 07:00 Pulse Ox 92 L 04/06/20 07:00 Intake & Output 04/05/20 04/06/20 04/06/20 18:59 06:59 18:59 Intake Total 530 960 30 Output Total 600 1595 Balance -70 -635 30 Weight 65.6 kg Intake: IV 330 660 30 Anidulafungin 200 mg In 200 Sodium Chloride 0.9% 200 ml @ 84 mls/hr IVPB ONCE ONE Rx#:[id number] Aztreonam 2 gm In Sodium 100 Chloride 0.9% 100 ml @ 33 .3 mls/hr IVPB Q8HR [facility] Rx#:[id number] Sodium Chloride 0.9% 1, 330 360 30 000 ml @ 30 mls/hr IV . Q24H [facility] Rx#:[id number] Oral 200 300 Output: Chest Tube Drainage 45 Chest tube #2 Anterior 20 YASMEEN drains 25 Urine 600 1550 Other: Voiding Method Toilet Bedside Commode Diaper Diaper Incontinent Incontinent External Catheter # Voids 1 1 # Bowel Movements 1 1 ABP, PAP, CO, CI - Last Documented Arterial Blood Pressure 141/53 - Constitutional General appearance: Present: cooperative, no acute distress - Respiratory Details: Lung sounds diminished bilaterally. Respirations even, non-labored. Currently on room air with oxygen saturation 92%. Able to achieve 1000 mL on her incentive spirometer, strong cough. Left pleural chest tube present and connected to continuous wall suction, 50 mL serosanguinous output in the last 24 hours, continuous air leak present. Two JPs present to continuous wall suction, 25 mL sanguinous drainage in the last 24 hours. - Cardiovascular Details: S1/S2 present, regular rate and rhythm, sinus rhythm on telemetry with heart rate in the 80s. Trace pedal edema present. No calf pain or tenderness present. Antiembolism stockings, SCDs present. Right internal jugular central line present. - Gastrointestinal Gastrointestinal Comment(s): Abdomen soft, non-distended, non-tender. Active bowel sounds present in all 4 quadrants. Tolerating oral intake. Positive bowel movement 04/06/20 - Genitourinary Genitourinary Comment(s): Patient continues to void with occasional incontinence - Integumentary Integumentary Comment(s): Skin is warm and dry. Left lateral thoracotomy incision clean, dry and approximated. No drainage or redness is present. Mininmal residual swelling to her left posterior chest wall. Soft and nontender to palpate. - Neurologic Neurologic: Present: CNII-XII intact - Musculoskeletal Musculoskeletal: Present: gait normal, strength equal bilaterally - Psychiatric Psychiatric: Present: A&O x's 3, appropriate affect, intact judgment & insight - Allied health notes Allied health notes reviewed: nursing - Labs CBC & Chem 7: 04/06/20 04:00 04/06/20 04:00 Labs: Abnormal Lab Results - Last 24 Hours (Table) 04/06/20 04/06/20 Range/Units 04:00 04:00 WBC 16.4 H (3.8-10.6) k/uL RBC 3.03 L (3.80-5.40) m/uL Hgb 8.3 L (11.4-16.0) gm/dL Hct 26.4 L (34.0-46.0) % RDW 16.5 H (11.5-15.5) % Plt Count 903 H (150-450) k/uL Neutrophils # 11.9 H (1.3-7.7) k/uL Monocytes # 1.4 H (0-1.0) k/uL Sodium 133 L (137-145) mmol/L Creatinine 0.42 L (0.52-1.04) mg/dL Glucose 101 H (74-99) mg/dL - Imaging and Cardiology Chest x-ray: report reviewed, image reviewed Assessment and Plan Assessment: 1. Empyema left chest with bronchopleural fistula status post fiberoptic b ronchoscopy with left chest tube placement, left posterior lateral thoracotomy, mobilization of latissimus muscle flap, exploratory thoracotomy through the fourth intercostal space, closure of bronchopleural fistula, decortication of left pleural space and portion of the left lower lobe, cryoablation of intercostal nerves L2 through L6, reinforcement of the bronchopleural fistula closure and modification in the left pleural space with the latissimus dorsi flap 2. Leukocytosis, secondary to empyema 3. New onset atrial fibrillation with RVR 4. Squamous cell carcinoma of the left lung status post robotically assisted left upper lobectomy with mediastinal lymph node dissection and repair of left main bronchus on 03/13/2020 with pathology consistent with T2b, N0, M0 5. Breast cancer status post left mastectomy in 2006 with chemo 6. Previous tobacco dependence with cessation in February 2020 7. Moderate chronic restrictive pulmonary disease with a recent FEV1 value 72% of predicted value 8. Hypertension 9. Left carotid stenosis status post left carotid endarterectomy in 2019 10. Degenerative joint disease 11. Postoperative acute blood loss anemia, expected, dilutional Plan: 1. Continue left pleural chest tube, left YASMEEN pleural tube to low continuous wall suction at -20 cm H2O. Continue to monitor for airleak resolution. Record strict inaccurate I's and O's. 2. Oxygen as needed, occasionally at night with sleeping. Encourage use of her incentive spirometry 10 times every hour while awake. 3. Bronchodilator management per pulmonology 4. Atrial fibrillation management per cardiology, continue lopressor, amio. No anticoagulation at this time 5. Continue to monitor daily labs and chest x-rays. 6. GI and DVT prophylaxis. 7. Continue to reinforce the importance of continued smoking cessation. 8. Antibiotic management per infectious disease recommendations, currently on Levaquin and aztreonam for antibiotic coverage with Eraxis added. Remains afebrile. Bronchial washings, cultures negative. 9. Increase activity as tolerated, out of bed for all meals, ambulate as tolerated. Physical and occupational therapy following. 10. Pain control per current medication regimen 11. Keep in ICU for close monitoring 12. More recommendations to follow based on patient's clinical course. Time with Patient: Greater than 30
--- NOTE | 2020-04-06 10:15 | P.PN ---
Subjective Progress Note Date: 04/06/20 69-year-old female one of Dr. lauryn eMjia patient with past medical history of COPD, hypertension, hyperlipidemia who was diagnosed with squamous cell carcinoma of the left upper lobe of the lung base on postero-body ache assisted thoracoscopy of the left upper lobectomy with mediastinal lymph node dissection and repair of left main bronchus on 03/13/2020. Patient also survival of rest cancer post left mastectomy in 2010 post chemotherapy also she is known to have history of carotid stenosis post left carotid endarterectomy in 2018 previous history of tobacco use she quit in February this year continue to have moderate COPD with FEV1 of 72 percentile history of hypertension hyperlipidemia. Patient left the hospital on March 17 after surgery was seen pulmonary and cardiothoracic surgery on regular basis she returned to the emergency department shortly after midnight today because of worsening dyspnea and shortness of breath with significant tachycardia according to patient she become more symptomatic with rapid ventricular response on and off become more symptomatic causing worsening shortness of breath. Was seen and evaluated demurs department her white blood cell was 18.5 hemoglobin 10.5 hematocrit 32.9 d-dimer was 2.48 patient COVID 19 testing was negative she found to be in A. fib with RVR pulse 153 beats per minutes cardiology were called along with cardiothoracic patient chest x-ray showed pleural effusion and pneumothorax of the left side. She was started on Cardizem drip brought the pulse rate down no anticoagulation was started this point patient was on Plavix since her carotid surgery and no previous history of A. fib her pulse rate used to be well controlled on Coreg 6.25 mg twice a day in the past. Patient will be going to the OR by cardiothoracic and she will have more repair along with chest tube as well. 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 Patient will be back to the ICU after surgery. 03/31: Patient evaluated in the ICU this morning, sitting up in the bedside chair, in no acute distress. She is postop day #1 status post left posterior lateral thoracotomy, closure of the bronchopleural fistula, and cryoablation of the intercostal nerves. Patient still has 2 left-sided chest tubes in place, she continues on Levaquin, vancomycin, and Aztreonam. Cultures are still pending, infectious disease on consult. Repeat chest x-ray shows residual left pneumothorax and left perihilar consolidation. Vital signs are stable, she is afebrile 98.0, heart rate is 90, respiratory 23, temperature 128/57, she's 95% on 3 L via nasal cannula. 04/01: Patient evaluated in the ICU, sitting up in the bedside chair. Nurse states she went to stand patient up to get her out of bed and she had a syncople episode. She was noted to be hypotensive 63/37 and tachycardic with a heart rate of 111. Stat CBC and repeat chest x-ray ordered, patient placed back in bed blood, pressure did come up to 99/47, heart rate 90. Hemoglobin 7.7, platelets 729, sodium 130, creatinine 0.51, BUN 16. Left pleural chest tube in place, left pleural YASMEEN drain in place and continues to drain serosanguineous drainage, left lateral chest YASMEEN drains [address] with bulb suction. Repeat chest x-ray showed some improvement of aeration throughout the remaining left lung post lobectomy, pneumothorax remains. 04/02: Patient remains in the ICU. Patient had chest CT yesterday which showed chest wall herniation causing increase opacity in the left midlung at the third through fourth intercostal space. Large size hematoma in the posterior lateral lower thoracic chest and subcutaneous tissue. Patient's hemoglobin dropped to 6.1 she did receive 2 units of packed red blood cells, hemoglobin went up to 8.4 after the transfusion and dropped to 7.8 this morning. Clinically patient looks much better today, reports she is feeling much better as well. She is off supplemental oxygen and currently 94%, continue to use incentive spirometer, chest tubes remain in place. 04/03: Patient examined in the ICU. Patient was up walking in the [place] yesterday and is doing well. Patient has left pleural chest tube and 2 YASMEEN drains to continuous suction with air leaks. She continues on Levaquin, vancomycin and Aztreonam per infectious disease. Hemoglobin stable, 7.9 this morning, WBC 14.2, sodium 133, BUN 8, creatinine 0.39. She remains afebrile, vital signs are stable she is 97% on 2 L via nasal cannula. Patient did have multiple episodes of paroxysmal atrial fibrillation last night, cardiology is on consult. Cardiology did increase her dose of Coreg to 12.5 twice a day, currently she is rate controlled and converted back to normal sinus rhythm. 04/04 2020: Patient remain in the ICU, still have chest tube in, there is a quite possibility might have pneumothorax and slight leak around the chest tube area a chest x-ray still pending at this point, patient still seen pulmonary and cardiothoracic might need another chest tube or adjustment of her current chest tube area. He'll otherwise pain is under control currently patient is hemodynamically stable. 04/05 2020 patient examined sitting comfortably in the chair. Complains of epigastric tenderness and burning in her chest. The patient denies any chest pain, shortness of breath dizziness or lightheadedness. She does have pain around her chest tube on the left but denies any cough or breathing difficulty. Patient evaluated by neurology with no plan to adjust the chest tubes. Chest x- ray was repeated with stable left pleural area collection and mild lung volume loss along with small to moderate left pleural fluid collection. Vitals are stable temperature of 98.1 pulse 77 and respiratory rate 16 blood pressure 139/72 oxygen saturation 96% on room air. Patient had persistent leukocytosis of 16.7 hemoglobin stable at 8.8 Creatinine 0.41 glucose is stable at 124. Patient stable on bronchodilators and aztreonam and Levaquin. For culture and wound cultures are negative. 04/06 patient examined sitting comfortably in the chair. Denies any epigastric tenderness or shortness of breath. Patient denies any chest pain, dizziness lightheadedness, fatigue. She denies any change in bowel habits or diarrhea or constipation. Patient does have some pain around the chest tube which is controlled with medication. Left pleural chest tube and 2 YASMEEN drains continued to suction with continuous air leak present and chest tube. Vitals are stable with a pulse of 93 respiratory rate 19 and blood pressure 136/87 oxygen saturation 92% on room air. On evaluation the patient's blood pressure today continues to have leukocytosis of 16.4 hemoglobin 8.3 platelet 903. Sodium remains at 133 creatinine 0.4. Continue amiodarone at 400 twice a day. Patient continues to remain in normal sinus rhythm. Patient continues to be on aztreonam and Levaquin. anidulafungin was added due to persistent leukocytosis. Constitutional: Denies chills, Denies fever, Denies lethargy, Denies malaise, Denies poor appetite, Denies weakness, Denies weight loss Eyes: denies decreased vision, denies diplopia, denies discharge, denies pain Cardiovascular: Endorses chest pain, endorses decreased exercise tolerance, endorses edema, Denies high blood pressure, Denies irregular heart beat, Denies palpitations, Denies paroxysmal nocturnal dyspnea, Denies rapid heart beat, Denies shortness of breath Respiratory: Denies congestion, Denies cough, Denies cough with sputum, Denies dyspnea, Denies home oxygen, Denies wheezing Gastrointestinal: Improved abdominal pain, Denies change in bowel habits, Denies coffee ground emesis, Denies early satiety, Denies excessive gas, Denies heartburn, Denies hematemesis, Denies hematochezia, Denies loss of appetite, Denies nausea, Denies vomiting Genitourinary: Denies dysuria, Denies flank pain, Denies kidney stones, Denies menorrhagia, Denies urgency, Denies urinary frequency Musculoskeletal: Denies gait dysfunction, Denies limitation of motion, Denies morning stiffness, Denies muscle cramps Integumentary: Denies rash, Denies wounds, Denies brittle nails, Denies change in hair/nails, Denies darkening of skin Neurological: Denies balance difficulties, Denies change in speech, Denies double vision, Denies gait dysfunction, Denies loss of vision, Denies motor disturbance, Denies numbness, Denies paralysis, Denies paresthesias, Denies seizures Objective - Vital Signs Vital signs: Vital Signs Temp 98.1 F 04/06/20 08:00 Pulse 93 04/06/20 09:00 Resp 19 04/06/20 09:00 BP 136/87 04/06/20 09:00 Pulse Ox 92 L 04/06/20 09:00 Intake & Output 04/05/20 04/06/20 04/06/20 18:59 06:59 18:59 Intake Total 530 960 190 Output Total 600 1595 350 Balance -70 -635 -160 Weight 65.6 kg Intake: IV 330 660 90 Anidulafungin 200 mg In 200 Sodium Chloride 0.9% 200 ml @ 84 mls/hr IVPB ONCE ONE Rx#:[id number] Aztreonam 2 gm In Sodium 100 Chloride 0.9% 100 ml @ 33 .3 mls/hr IVPB Q8HR [facility] Rx#:[id number] Sodium Chloride 0.9% 1, 330 360 90 000 ml @ 30 mls/hr IV . Q24H [facility] Rx#:[id number] Oral 200 300 100 Output: Chest Tube Drainage 45 Chest tube #2 Anterior 20 YASMEEN drains 25 Urine 600 1550 350 Other: Voiding Method Toilet Bedside Commode Bedside Commode Diaper Diaper Diaper Incontinent Incontinent Incontinent External Catheter External Catheter # Voids 1 1 # Bowel Movements 1 1 ABP, PAP, CO, CI - Last Documented Arterial Blood Pressure 141/53 - Exam General Appearance: Alert, cooperative, mild distress with mild tachypnea Neck HEENT: Supple, no lymphadenopathy, no thyroid enlargement, no carotid bruits. Lungs: Decreased breath sounds in the left side positive for rhonchi Chest Wall: Decrease expansion with deep inspiration scar from her incision on the left side looks fine still have slight soreness pain and discomfort and tenderness in the left side of the rib cage left chest tube in place to suction Heart: Irregular rate and rhythm, S1, S2 normal, no murmur, rub or gallop. Back: Symmetric, no curvature, ROM normal, no CVA tenderness. Abdomen: Soft, non-tender, bowel sounds active all four quadrants, no masses, no organomegaly. Extremities: Extremities normal, atraumatic, no cyanosis or edema. Pulses: 2+ and symmetric. Skin: Skin color, texture, tugor normal, no rashes or lesions. Neurologic: Alert oriented x3 cranial nerves II through XII intact, no motor deficit, no abnormal balance or gait. - Labs CBC & Chem 7: 04/06/20 04:00 04/06/20 04:00 Labs: Abnormal Lab Results - Last 24 Hours (Table) 04/06/20 04/06/20 Range/Units 04:00 04:00 WBC 16.4 H (3.8-10.6) k/uL RBC 3.03 L (3.80-5.40) m/uL Hgb 8.3 L (11.4-16.0) gm/dL Hct 26.4 L (34.0-46.0) % RDW 16.5 H (11.5-15.5) % Plt Count 903 H (150-450) k/uL Neutrophils # 11.9 H (1.3-7.7) k/uL Monocytes # 1.4 H (0-1.0) k/uL Sodium 133 L (137-145) mmol/L Creatinine 0.42 L (0.52-1.04) mg/dL Glucose 101 H (74-99) mg/dL Assessment and Plan Plan: 1 new onset of A. fib with RVR: Amiodarone 400 twice a day and metoprolol 25 twice a day , anticoagulation continue to be helpful cardiothoracic surgery 2 empyema left chest with bronchopleural fistula status post bronchoscopy with left chest tube placement with post exploratory thoracotomy with cryoablation of the intercostal nerve of L2 through 6. Reinforcement of bronchopleural fistula closure and modification of the left pleural space was done. Continue left pleural chest tube and left YASMEEN pleural tube to low suction at -20. Monitor for air leak. Continue incentive spirometer continue bronchodilators every 4-6 ho urs continue levofloxacin and aztreonam. Anidulafungin affed due to persist ent leucocytosis . Wound cultures and respiratory cultures negative 3 squamous cell carcinoma of the left upper lobe: Post robotic-assisted left upper lobectomy with no dissection and repair of left main bronchus on 03/13 pathology suggestive of T2 b, N0, M0 4 COPD: Patient will be continue on DuoNeb and possible Pulmicort continue O2 and titrate dose higher. 5 PAD: Post left carotid endarterectomy has been doing well since. 6 history of breast cancer post left-sided mastectomy and chemotherapy has been in remission. 7 history of hypertension: Was on Coreg has been doing well. 8 anxiety and panic attack has been on lorazepam. 9 possible Empyema: Was still be on antibiotic till culture from the pleural fluid is done. 10 mild anemia: Mostly iron deficiency continue iron supplement. 11 hypoglycemia: On diet control. 12 pain control: Patient had cryoablation of the intercostal nerve L2 well 6 will continue patient on pain management as well patient was able to walk in the hallway multiple times yesterday continue current management and might require PT and subacute rehab eventually.
--- NOTE | 2020-04-06 11:16 | P.PN ---
Subjective Progress Note Date: 04/06/20 Principal diagnosis: Large left pneumothorax, new onset atrial fibrillation On 03/31/2020 the patient is being seen for a follow-up. 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 The patient was taken to the operating room approximately 2 weeks ago and the patient underwent a robotic-assisted left upper lobe resection. Postop, the patient was discharged home to be readmitted back to the hospital rule out empyema and air-fluid levels in the left chest along with a new onset atrial fibrillation and elevated white cell count. 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 A lesser the chest tube was placed at a time and drained turbid fluid. Gram stain was positive for gram-negative rods. Subsequently, the patient was taken back to the operating room and the patient underwent a thoracotomy and closure of a bronco pleural fistula with a muscle flap. The patient underwent a left posterior lateral thoracotomy, mobilization of the latissimus muscle flap, exploratory thoracotomy through the fourth int ercostal space, closure of the bronchopleural fistula and decortication of the left pleural space and portion of the left lower lobe and cryo-ablation of the intercostal nerves II through through L6 was done and reinforcement of the fistula was done and modification of the left pleural space with latissimus dorsi flap. The patient intraoperatively was found to have an empyema of the left chest as mentioned. Postop, the patient was extubated and the patient was brought back to the intensive care unit for further monitoring. She was placed on oxygen at 3 L about 2 by nasal cannula. There was a left-sided chest tube in place with a Pleur-evac and there were also 2 YASMEEN drains within the pleural space. The patient was being covered with broad-spectrum antibiotics including a combination of Levaquin, aztreonam and vancomycin pending further cultures from the pleural space. The patient was on tramadol 50 mg every 6 hours when necessary basis for pain control. The patient is also on [place] 53 25 one tablet every 4-6 hours on a when necessary basis for pain control. The patient recovered from the atrial fibrillation and the patient is currently in sinus rhythm. Cardizem drip has been discontinued and the patient was placed on Coreg 6.25 mg by mouth twice a day. She is on heparin subcu for DVT prophylaxis. IV fluids running at 40 mL an hour of normal saline. Chest x-ray revealed a pleural air fluid levels/pneumothorax and the left upper chest area measuring 2.1 cm in size. A small left-sided pleural effusion/consolidation of the left lung base. There were 2 drains within the pleural space in addition to surgical changes are thoracotomy. The patient has a right IJ triple-lumen catheter in place. Liver output, the chest tube has put out approximately 20 mL over the p ast 24 hours and there is no evidence of any air leak. As for the YASMEEN drains,one in the pleural space and drained approximately 450 over the past 24 hours. Whereas the other YASMEEN drains are present in her lap and drained 60 mL and 20 mL over the past 12 hours. She is awake and alert. She is using incentive spirometer. She is afebrile. Hemodynamically stable. She is on no pressors. IV fluids are running at the rate of 40 mL an hour. She is tolerating her diet. Today's evaluation of 04/01/2020, the patient is being seen for a follow-up. The patient is doing essentially the same as yesterday. She is using incentive spirometer and she is pulling approximately 800 mL on her I asked. The patient had a follow-up chest x-ray today that showed no major interval change compared to yesterday's chest x-ray. I do not appreciate any pneumothorax. All of the drains in the tubes are still in place. Note that the patient has a regular posterior chest to talk with of which has been minimal in the order of 10 mL over the past 24 hours and it's still has some minimal amount of intermittent air leak. The YASMEEN drains in the flap is in order of 250 mL in the anterior pain and 125 in the posterior drain over the past 8 hours. His another third drain in the pleural space output of which is still 120 mL over the past 24 hours. Cultures still pending for now. There is gram-negative bacteria. The patient remains on a combination of Levaquin, aztreonam and vancomycin. Surgical wound site is dry clean and intact. The patient has some swelling along the left posterior chest area at the surgical sites. No hematoma collection. She has a congested cough. Unable to bring up much sputum. She is afebrile. Her white cell count has dropped and the count is down to 15. The patient remains on normal saline at the rate of 100 mL an hour. He was having a low urine output in the order of 10-20 mL yesterday and this is improved with the increase the fluid rates. Creatinine is stable for now. Her pain is under adequate control and she is on [place]. She has received cryoablation. She is postop day #2. Cardiac rhythm is sinus. There is no atrial fibrillation. The patient is off all drips and she is utilizing Coreg for rate control. The patient is seen today 04/02/2020 in follow-up in the intensive care unit. She is currently sitting up in bed. Awake and alert in no acute distress. She is maintaining good O2 saturations in the 90s on room air now. 0.9 normal sitting in 100 ML's per hour. She is postoperative day #3 of a left thoracotomy with deep decortication and muscle flap. Computed tomography scan of the chest yesterday revealed postsurgical changes of the left lung. 2 left-sided chest tubes in pleural spaces containing a small amount of residual fluid. There is a chest wall herniation causing increased opacity in the left midlung at the third to fourth intercostal space. Note is made of moderate to large sided organizing hematoma in the posterior lateral left thorax thoracic chest wall and subcutaneous tissue. Today's chest x-ray reveals chest tubes in place. Extensive pleural parenchymal opacities persist throughout the left hemithorax. A loculated component along the lateral mid lung may be slightly decreased in size. She is status post 2 units of packed red blood cells this admission. Current hemoglobin 7.8. White count 15.7. Sodium 133. Potassium 4.2. Creatinine 0.43. She remains on bronchodilators, antibiotics in the form of aztreonam, vancomycin, Levaquin. The patient is seen today 04/03/2020 in follow-up in the intensive care unit. Postoperative day #4. She is awake and alert in no acute distress. Currently sitting up in bed. Maintaining good O2 saturation in the 90s on 2 L/m per nasal cannula. 0.9 normal saline at 30 mL per hour. Chest x-ray shows significant subcutaneous emphysema, rounded opacity within the left peripheral midlung. Improving infiltrates in the left lung field. No evidence of pneumothorax. 2 left-sided catheters remain in place. She is working well with the incentive spirometer. She is status post 2 units of packed red blood cells this admission. Current hemoglobin 7.9. Thoracic fluid cultures revealed no growth. Wound cultures reveal no growth. Pathology findings revealed fibrin debris with acute and chronic inflammation and a few reactive mesothelial elements. Negative for neoplasm. White count 14.2. Sodium 133. Potassium 2.9. Creatinine 0.39. Continues on bronchodilators, aztreonam, Levaquin. Heparin for DVT prophylaxis. Patient is seen today 04/04/2020 in follow-up in the intensive care unit. Postoperative day #5. She is sitting up in a chair at the bedside. Awake and alert in no acute distress. She denies any worsening shortness of breath, cough or congestion. She is maintaining O2 saturation the 90s on room air. 0.9 normal saline at 30 MLS per hour. She did have a brief episode of atrial fibrillation with a rapid ventricular response last night. She's had some episodes of hypotension. Her Coreg was discontinued and she was started on low- dose metoprolol. Chest x-ray reveals postsurgical changes the left lung ray demonstrated. Improved left sided pleural air collection on the current study and improved left-sided volume loss. Some question of possible left-sided pneumothorax. YASMEEN drain remains to low continuous wall suction. Chest tube was placed to waterseal. White count 16.9. Hemoglobin 8.2. Sodium 133. Potassium 4.0. Creatinine 0.40. She remains on bronchodilators. Working well with the incentive spirometer. Antibiotics in the form of aztreonam and Levaquin. The patient is seen today 04/05/2020 in follow-up in the intensive care unit. Postoperative day #6. She is currently sitting up in a chair at the bedside. Awake and alert in no acute distress. She denies any worsening shortness of breath, cough or congestion. No hemoptysis. Currently maintaining O2 saturations in the 90s on room air. She has a 0.9 normal saline at 10 MLS per hour. Amiodarone drip at 0.5 mg/m. No recent arrhythmias. Currently in normal sinus rhythm. Left pleural chest tube and 2 YASMEEN drains remain in place to continue continuous suction with a continuous air leak and the atrium. Chest x- ray reveals postsurgical changes in the left lung ray demonstrated. Stable small sized left pleural air collection on current study and mild left volume loss along with stable small to moderate size left basilar pleural fluid col lection. No new infiltrates seen. She is status post 2 units of packed red blood cells this admission. Current hemoglobin 8.8. Fluid cultures and wound cultures reveal no growth. White count 16.7. Sodium 134. Potassium 3.9. Creatinine 0.41. She remains on bronchodilators, aztreonam and Levaquin. The patient is seen today 04/06/2020 in follow-up in the intensive care unit. She is currently up in a chair at the bedside. Awake and alert in no acute distress. This is postoperative day #7. She is maintaining good O2 saturations in the 90s on room air. She has 0.9 normal saline at 30 MLS per hour. She has YASMEEN drains and a chest tube still in the left chest which are to wall suction. Chest x-ray continues to show stable small sized left sided pleural air collection and current study with chest tubes in place mid left-sided volume loss along with stable small to moderate left-sided pleural fluid. No new infiltrates. Bronchial wash cultures and fluid cultures reveal no growth. White count 16.4. Hemoglobin 8.3. Platelets continue to rise at 903,000. Sodium 133. Potassium 4.1. Creatinine 0.42. She remains on Levaquin and aztreonam. Continued on Eraxis. Heparin for DVT prophylaxis. Objective - Vital Signs Vital signs: Vital Signs Temp 98.1 F 04/06/20 08:00 Pulse 89 04/06/20 10:00 Resp 17 04/06/20 10:00 BP 115/69 04/06/20 10:00 Pulse Ox 95 04/06/20 10:00 Intake & Output 04/05/20 04/06/20 04/06/20 18:59 06:59 18:59 Intake Total 530 960 220 Output Total 600 1595 350 Balance -70 -635 -130 Weight 65.6 kg Intake: IV 330 660 120 Anidulafungin 200 mg In 200 Sodium Chloride 0.9% 200 ml @ 84 mls/hr IVPB ONCE ONE Rx#:[id number] Aztreonam 2 gm In Sodium 100 Chloride 0.9% 100 ml @ 33 .3 mls/hr IVPB Q8HR REPLACED BY [facility] Rx#:[id number] Sodium Chloride 0.9% 1, 330 360 120 000 ml @ 30 mls/hr IV . Q24H REPLACED BY [facility] Rx#:[id number] Oral 200 300 100 Output: Chest Tube Drainage 45 Chest tube #2 Anterior 20 YASMEEN drains 25 Urine 600 1550 350 Other: Voiding Method Toilet Bedside Commode Bedside Commode Diaper Diaper Diaper Incontinent Incontinent Incontinent External Catheter External Catheter # Voids 1 1 # Bowel Movements 1 1 ABP, PAP, CO, CI - Last Documented Arterial Blood Pressure 141/53 - Exam GENERAL EXAM: Alert, pleasant 69-year-old female patient, currently up in a chair at the bedside, on room air, fairly comfortable in no apparent distress. HEAD: Normocephalic. EYES: Normal reaction of pupils, equal size. NOSE: Clear with pink turbinates. THROAT: No erythema or exudates. NECK: No masses, no JVD. CHEST: Left-sided chest tube and YASMEEN drains x [address] wall suction. Positive air leak. LUNGS: Equal air entry with bilateral scattered rhonchi more so on the left lung CVS: S1 and S2 normal with no audible murmur, regular rhythm. ABDOMEN: No hepatosplenomegaly, normal bowel sounds, no guarding or rigidity. SPINE: No scoliosis or deformity SKIN: No rashes CENTRAL NERVOUS SYSTEM: No focal deficits, tone is normal in all 4 extremities. EXTREMITIES: There is no peripheral edema. No clubbing, no cyanosis. Peripheral pulses are intact. 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 Status post Left posterior lateral thoracotomy, mobilization of latissimus muscle flap, exploratory thoracotomy through the fourth interspace, closure of bronchopleural fistula, decortication of left pleural space and portion of the left lower lobe, cryoablation of intercostal nerves L2 through L6, reinforcement of the bronchopleural fistula closure and modification in the left pleural space with the latissimus dorsi flap. Post operative day #7. Remains on antibiotics in the form of aztreonam and Levaquin Chest x-ray from today 04/06/2020 reveals postoperative changes in the left lung will be demonstrated. Stable small sized left sided pleural air collection on current study and mild left-sided volume loss along with stable small to moderate-sized left basilar lateral fluid collection. No new infiltrates seen. Left-sided chest tube and 2 YASMEEN drains remain in place. Positive air leak. 2 Bronchopleural fistula, left upper lobe apical stump status post fiberoptic bronchoscopy, left chest tube placement. Postoperative day #7 3 Squamous cell carcinoma of the left lung, status post robotically assisted left upper lobectomy with mediastinal lymph node dissection on 03/13/2020. 4 New-onset atrial fibrillation requiring Cardizem drip, currently in sinus rhythm 5 Moderate to severe chronic obstructive pulmonary disease with FEV1 value 72% of predicted 6 History of breast cancer status post left mastectomy 7 Carotid artery disease status post left carotid endarterectomy 8 History of chronic tobacco dependence 9 History of degenerative joint disease Plan: The patient was seen and evaluated by Dr. Renteria Chest x-ray and labs reviewed Continue antibiotics and bronchodilators Working well with the incentive spirometer Increase her activity as tolerated We will continue to follow and make further recommendations based on her clinical status I, the cosigning physician, performed a history & physical examination of the patient. Lungs sounds with bilateral scattered rhonchi left greater than right. Maintaining good O2 saturations in the 90s on room air. I discussed the assessment and plan of care with my nurse practitioner, Arminda Owen. I attest to the above note as dictated by her.
[2020-04-06] MEDS: ACETYLCYSTEINE 800 MG/4 ML VIAL INHALATION SCH ×3 (13:03→20:08)
[2020-04-06] MEDS: LEVOFLOXACIN 750 MG TAB PO SCH (14:58)
[2020-04-06] MEDS: SODIUM CHLORIDE 0.9% 1,000 ML IV SCH (15:19)
[2020-04-06] MEDS: ANIDULAFUNGIN 100 MG in SODIUM CHLORIDE 0.9% 100 ML IVPB SCH (20:11)
--- NOTE | 2020-04-06 21:50 | PN ---
PROGRESS NOTE DATE OF SERVICE: 04/06/2020 REASON FOR FOLLOWUP: Empyema. INTERVAL HISTORY: The patient is currently afebrile. Patient is breathing comfortably. Minimal left- sided chest pain. Occasional cough. No sputum. No nausea. No abdominal pain or diarrhea. EXAMINATION: Blood pressure 124/81, pulse 78, temperature 98. She is 94% on room air. General description: The patient is an elderly female up in the chair in no distress. Respiratory system: Unlabored breathing, decreased intensity in breath sounds. No wheeze. Heart S1, S2. Regular rate and rhythm. Abdomen soft. No tenderness. LABS: Hemoglobin 8.1, white count 15.4. BUN of 9, creatinine 0.42. DIAGNOSTIC IMPRESSION AND PLAN: Patient with left sided empyema, status post chest tube placement. Culture negative for resistant pathogen. Patient covered with Azactam because of her allergies with persistent elevated white count. Eraxis was added yesterday. No worsening white count has been noticed. monitor clinical course closely. Continue supportive care. MMODL / IJN: [id number] / MTDD
[2020-04-07 03:33] LABS: Anisocytosis Slight; Basophils # (A) 0.1 k/uL (0-0.2); Basophils % (A) 1 %; Eosinophils # (A) 0.6 k/uL (0-0.7); Eosinophils % (A) 3 %; HCT 25.9 % (34.0-46.0); HGB 8.2 gm/dL (11.4-16.0); Hypochromasia Moderate; Lymphocytes # (A) 2.4 k/uL (1.0-4.8); Lymphocytes % (A) 14 %; MCHC 31.7 g/dL (31.0-37.0); MCV 88.2 fL (80.0-100.0); Mean Platelet Volume 6.2; Monocytes # (A) 1.5 k/uL (0-1.0); Monocytes % (A) 9 %; Neutrophils # (A) 12.8 k/uL (1.3-7.7); Neutrophils % (A) 73 %; Platelet Count 889 k/uL (150-450); RBC 2.93 m/uL (3.80-5.40); RDW 16.4 % (11.5-15.5); WBC 17.6 k/uL (3.8-10.6)
[2020-04-07 03:46] LABS: African American GFR (CKD) >90 (>60 ml/min/1.73 sqM); Anion Gap 2 mmol/L; Blood Urea Nitrogen 15 mg/dL (7-17); Calcium 8.7 mg/dL (8.4-10.2); Carbon Dioxide 28 mmol/L (22-30); Chloride 104 mmol/L (98-107); Glucose 104 mg/dL (74-99); Non-African American GFR(CKD) >90 (>60 ml/min/1.73 sqM); Potassium 4.3 mmol/L (3.5-5.1); Sodium 134 mmol/L (137-145)
--- NOTE | 2020-04-07 07:33 | XR ---
EXAMINATION TYPE: XR chest 1V portable DATE OF EXAM: 04/07/2020 Comparison: 04/06/2020 Clinical History: 69 year-old female pneumothorax Findings: Right CVC tip remains at the cavoatrial junction. Heart normal size. Hyperinflation. Surgical materia l at the left hilum redemonstrated. Continued [id number] left effusion. An elliptically margin ated area in the left upper and midlung persists with 2 pleural drains remaining on the left and subc utaneous emphysema along the left chest wall. Now seen is a 1.4 cm left apical component to the pneum othorax. Impression: Postsurgical change at the left hilum with 2 pleural drainage catheters redemonstrated on the left. S mall to moderate left effusion and suspected loculated pneumothorax at the mid and lower lung are unc hanged in appearance. However, a new small apical component to the pneumothorax is now seen measuring 1.4 cm.
--- NOTE | 2020-04-07 08:55 | P.PN ---
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 Previous medical history of squamous cell carcinoma of the left lung status post robotically assisted left upper lobectomy with mediastinal lymph node dissection and repair of left main bronchus on 03/13/2020 with pathology consistent with T2b, N0, M0, breast cancer status post left mastectomy in 2006 with chemo, previous tobacco dependence with cessation in February 2020, moderate chronic restrictive pulmonary disease with a recent FEV1 value 72% of predicted value, hypertension, left carotid stenosis status post left carotid endarterectomy in 2019, degenerative joint disease. POD #8 Left posterior lateral thoracotomy, mobilization of latissimus muscle flap, exploratory thoracotomy through the fourth intercostal space, closure of bronchopleural fistula, decortication of left pleural space and portion of the left lower lobe, cryoablation of intercostal nerves L2 through L6, reinforcement of the bronchopleural fistula closure and modification in the left pleural space with the latissimus dorsi flap. POD #9 Fiberoptic bronchoscopy, left chest tube placement. Postoperative acute blood loss anemia, expected, dilutional. The patient is currently sitting up in a recliner in no acute distress. She states pain is well controlled on current pain medication regimen, denies shortness of breath. States she had a better night last night, did get sleep. Remains in nornmal sinus rhythm, currently on oral amiodarone and lopressor. Left pleural chest tube and 2 YASMEEN drains continue to suction with continuous air leak present in chest tube chamber. She has ambulated in the hallway several times without difficulty with a walker and minimal assistance for holding her tubes and wires. Levaquin, aztreonam, Eraxis continue per infectious disease, remains afebrile. Daughter continues to be updated via phone, she is concerned about continued elevated white blood cell count and how long the patient will wladen ve tubes to suction. Objective - Vital Signs Vital signs: Vital Signs Temp 98.2 F 04/07/20 04:00 Pulse 74 04/07/20 07:00 Resp 17 04/07/20 07:00 BP 120/57 04/07/20 07:00 Pulse Ox 93 L 04/07/20 07:00 Intake & Output 04/06/20 04/07/20 04/07/20 18:59 06:59 18:59 Intake Total 560 700 30 Output Total 410 315 Balance 150 385 30 Weight 67 kg Intake: IV 360 360 30 Sodium Chloride 0.9% 1, 360 360 30 000 ml @ 30 mls/hr IV . Q24H MALA Rx#:[id number] Intake, IV Titration 100 Amount Anidulafungin 100 mg In 100 Sodium Chloride 0.9% 100 ml @ 84 mls/hr IVPB DAILY MALA Rx#:[id number] Oral 200 240 Output: Chest Tube Drainage 60 40 Chest tube #2 Anterior 40 20 YASMEEN drain labeled #1 0 Posterior YASMEEN drain labeled #2 0 Anterior YASMEEN drains 20 20 Urine 350 275 Other: Voiding Method Bedside Commode Bedside Commode Diaper Diaper Incontinent Incontinent External Catheter External Catheter # Voids 1 2 1 # Bowel Movements 2 1 ABP, PAP, CO, CI - Last Documented Arterial Blood Pressure 141/53 - Constitutional General appearance: Present: cooperative, no acute distress - Respiratory Details: Lung sounds diminished bilaterally. Respirations even, non-labored. Currently on room air with oxygen saturation 94%. Able to achieve 1000 mL on her incentive spirometer, strong cough. Left pleural chest tube present and connected to continuous wall suction, 50 mL serosanguinous output in the last 24 hours, continuous air leak present. Two JPs present to continuous wall suction, 20 mL sanguinous drainage in the last 24 hours. - Cardiovascular Details: S1/S2 present, regular rate and rhythm, sinus rhythm on telemetry with heart ra te in the 80s. Trace pedal edema present. No calf pain or tenderness present. Antiembolism stockings, SCDs present. Right internal jugular central line present. - Gastrointestinal Gastrointestinal Comment(s): Abdomen soft, non-distended, non-tender. Active bowel sounds present in all 4 quadrants. Tolerating oral intake. Positive bowel movement 04/07/20 - Genitourinary Genitourinary Comment(s): Patient continues to void clear yellow urine - Integumentary Integumentary Comment(s): Skin is warm and dry. Left lateral thoracotomy incision clean, dry and approximated. No drainage or redness is present. Mininmal residual swelling to her left posterior chest wall. Soft and nontender to palpate. - Neurologic Neurologic: Present: CNII-XII intact - Musculoskeletal Musculoskeletal: Present: gait normal, strength equal bilaterally - Psychiatric Psychiatric: Present: A&O x's 3, appropriate affect, intact judgment & insight - Allied health notes Allied health notes reviewed: nursing - Labs CBC & Chem 7: 04/07/20 02:58 04/07/20 02:58 Labs: Abnormal Lab Results - Last 24 Hours (Table) 04/07/20 04/07/20 Range/Units 02:58 02:58 WBC 17.6 H (3.8-10.6) k/uL RBC 2.93 L (3.80-5.40) m/uL Hgb 8.2 L (11.4-16.0) gm/dL Hct 25.9 L (34.0-46.0) % RDW 16.4 H (11.5-15.5) % Plt Count 889 H (150-450) k/uL Neutrophils # 12.8 H (1.3-7.7) k/uL Monocytes # 1.5 H (0-1.0) k/uL Sodium 134 L (137-145) mmol/L Creatinine 0.50 L (0.52-1.04) mg/dL Glucose 104 H (74-99) mg/dL - Imaging and Cardiology Chest x-ray: report reviewed, image reviewed Assessment and Plan Assessment: 1. Empyema left chest with bronchopleural fistula status post fiberoptic bronchoscopy with left chest tube placement, left posterior lateral thoracotomy, mobilization of latissimus muscle flap, exploratory thoracotomy through the fourth intercostal space, closure of bronchopleural fistula, decortication of left pleural space and portion of the left lower lobe, cryoablation of intercostal nerves L2 through L6, reinforcement of the bronchopleural fistula closure and modification in the left pleural space with the latissimus dorsi flap 2. Leukocytosis, secondary to empyema 3. New onset atrial fibrillation with RVR 4. Squamous cell carcinoma of the left lung status post robotically assisted left upper lobectomy with mediastinal lymph node dissection and repair of left main bronchus on 03/13/2020 with pathology consistent with T2b, N0, M0 5. Breast cancer status post left mastectomy in 2006 with chemo 6. Previous tobacco dependence with cessation in February 2020 7. Moderate chronic restrictive pulmonary disease with a recent FEV1 value 72% of predicted value 8. Hypertension 9. Left carotid stenosis status post left carotid endarterectomy in 2018 10. Degenerative joint disease 11. Postoperative acute blood loss anemia, expected, dilutional Plan: 1. Left pleural chest tube placed to water seal, will repeat CXR. Continue left YASMEEN pleural tube to continuous wall suction. Continue to monitor for airleak resolution. Record strict inaccurate I's and O's. 2. Encourage use of her incentive spirometry 10 times every hour while awake. 3. Bronchodilator management per pulmonology 4. Continue lopressor, amio. No anticoagulation at this time 5. Continue to monitor daily labs and chest x-rays. 6. GI and DVT prophylaxis. 7. Continue to reinforce the importance of continued smoking cessation. 8. Antibiotic management per infectious disease recommendations, currently on Levaquin, aztreonam, eraxis for coverage. Remains afebrile. Bronchial washings, cultures negative. 9. Increase activity as tolerated, out of bed for all meals, ambulate as tolerated. Physical and occupational therapy following. 10. Pain control per current medication regimen 11. Transfer out of ICU per logistics lead. Patient should remain on telemetry due to recent atrial fibrillation 12. More recommendations to follow based on patient's clinical course. Time with Patient: Greater than 30
[2020-04-07] MEDS: ACETYLCYSTEINE 800 MG/4 ML VIAL INHALATION SCH ×4 (08:56→20:27)
[2020-04-07] MEDS: IPRATROPIUM-ALBUTEROL 3 ML NEB INHALATION SCH ×3 (08:57→20:27)
[2020-04-07] MEDS ORDERED: LIDOCAINE 1% INJ 10MG/ML (20 ML MDV) SQ ONE (09:22)
--- NOTE | 2020-04-07 09:59 | XR ---
EXAMINATION TYPE: XR chest 1V confirm line [facility] DATE OF EXAM: 04/07/2020 COMPARISON: Earlier today HISTORY: 69-year-old female confirm PICC line placement TECHNIQUE: Single frontal view of the chest is obtained. FINDINGS: Right PICC tip in the upper right atrium. Right IJ CVC tip at the cavoatrial junction. Otherwise, the continued [id number] left effusion and possible loculated pneumothorax left upper to midlung appear similar. The apical component is not as well seen estimated at 6 mm versus 1.4 cm, previously. Surgical staple line at the left hilum into pleural catheters remain on the left along with subcutan eous emphysema. IMPRESSION: 1. Right PICC tip in the upper right atrium. 2. Continued small to moderate left effusion and possible loculated pneumothorax on the left. Apical component is not as well seen and estimated at 6 mm versus 1.4 cm earlier today. 2 pleural drains rem ain on the left.
[2020-04-07] MEDS: HEPARIN SODIUM,PORCINE 5,000 UNIT/ML 1 ML VIAL SQ SCH ×3 (10:00→23:39)
[2020-04-07] MEDS: AZTREONAM 2 GM in SODIUM CHLORIDE 0.9% 100 ML IVPB SCH ×2 (10:00→16:55)
[2020-04-07] MEDS: guaiFENesin 600 MG TABLET.ER PO SCH ×2 (10:01→20:09)
[2020-04-07] MEDS: MAGNESIUM OXIDE 400 MG TAB PO SCH (10:01)
[2020-04-07] MEDS: CALCIUM CARB-VIT D 500 MG-5 MCG TAB PO SCH (10:01)
[2020-04-07] MEDS: LETROZOLE 2.5 MG TAB PO SCH (10:01)
[2020-04-07] MEDS: AMIODARONE 200 MG TAB PO SCH ×2 (10:01→20:09)
[2020-04-07] MEDS: ZINC SULFATE 220 MG CAP PO SCH (10:02)
[2020-04-07] MEDS: PANTOPRAZOLE 40 MG/10 ML VIAL IVP SCH (10:02)
[2020-04-07] MEDS: METOPROLOL TARTRATE 25 MG TAB PO SCH ×2 (10:02→20:09)
--- NOTE | 2020-04-07 10:17 | IR ---
PICC LINE PLACEMENT: HISTORY: Infection requiring long-term antibiotic therapy PROCEDURE: Ultrasound guidance of PICC line placement. PATIENT SERVICE REP: Dr. Mcconnell. COMPLICATIONS: None ANESTHESIA: 1. 1% Lidocaine locally. FINDINGS/TECHNIQUE: The procedure was explained to the patient. The risks, complications, benefits and alternatives were discussed and any questions were answered. Informed consent was obtained. The patient was placed supine on the fluoroscopic table and prepped and draped in the usual sterile fas ion. Utilizing a 21 gauge needle and sonographic guidance, access in the right basilic vein was ach ieved and there is placement of a 0.018 guidewire. The vein is patent. A 5-F. sheath was placed ove r the guidewire. The guidewire and dilator were removed and a 5-F. Double lumen PICC line was placed through the sheath with the chest x-ray confirming the tip at the level of the SVC. The sheath was removed, the catheter was flushed and sutured into position. The patient was stable throughout the p rocedure and remained stable upon discharge from the Department of Radiology. The vein puncture was patent under ultrasound. A horn scale image was obtained to document patency of the vein punctured. All elements of the maximal barrier technique were utilized. IMPRESSION: 1. Successful PICC line placement under ultrasound performed bedside within the ICU.
[2020-04-07] MEDS: ANIDULAFUNGIN 100 MG in SODIUM CHLORIDE 0.9% 100 ML IVPB SCH (10:25)
--- NOTE | 2020-04-07 10:31 | P.PN ---
Subjective Progress Note Date: 04/07/20 HISTORY OF PRESENT ILLNESS 69-year-old female one of Dr. 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 Patient also survival of rest cancer post left mastectomy in 2010 post chemotherapy also she is known to have history of carotid stenosis post left carotid endarterectomy in 2018 previous history of tobacco use she quit in February this year continue to have moderate COPD with FEV1 of 72 percentile history of hypertension hyperlipidemia. Patient left the hospital on March 17 after surgery was seen pulmonary and cardiothoracic surgery on regular basis she returned to the emergency department shortly after midnight today because of worsening dyspnea and shortness of breath with significant tachycardia according to patient she become more symptomatic with rapid ventricular response on and off become more symptomatic causing worsening shortness of breath. Was seen and evaluated demurs department her white blood cell was 18.5 hemoglobin 10.5 hematocrit 32.9 d-dimer was 2.48 patient COVID 19 testing was negative she found to be in A. fib with RVR pulse 153 beats per minutes cardiology were called along with cardiothoracic patient chest x-ray showed pleural effusion and pneumothorax of the left side. She was started on Cardizem drip brought the pulse rate down no anticoagulation was started this point patient was on Plavix since her carotid surgery and no previous history of A. fib her pulse rate used to be well controlled on Coreg 6.25 mg twice a day in the past. Patient will be going to the OR by cardiothoracic and she will have more repair along with chest tube as well. 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 Patient will be back to the ICU after surgery. 03/31: Patient evaluated in the ICU this morning, sitting up in the bedside chair, in no acute distress. She is postop day #1 status post left posterior lateral thoracotomy, closure of the bronchopleural fistula, and cryoablation of the intercostal nerves. Patient still has 2 left-sided chest tubes in place, she continues on Levaquin, vancomycin, and Aztreonam. Cultures are still pending, infectious disease on consult. Repeat chest x-ray shows residual left pneumothorax and left perihilar consolidation. Vital signs are stable, she is afebrile 98.0, heart rate is 90, respiratory 23, temperature 128/57, she's 95% on 3 L via nasal cannula. 04/01: Patient evaluated in the ICU, sitting up in the bedside chair. Nurse states she went to stand patient up to get her out of bed and she had a syncople episode. She was noted to be hypotensive 63/37 and tachycardic with a heart r ate of 111. Stat CBC and repeat chest x-ray ordered, patient placed back in bed blood, pressure did come up to 99/47, heart rate 90. Hemoglobin 7.7, platelets 729, sodium 130, creatinine 0.51, BUN 16. Left pleural chest tube in place, left pleural YASMEEN drain in place and continues to drain serosanguineous drainage, left lateral chest YASMEEN drains [address] with bulb suction. Repeat chest x-ray bentley wed some improvement of aeration throughout the remaining left lung post lobectomy, pneumothorax remains. 04/02: Patient remains in the ICU. Patient had chest CT yesterday which showed chest wall herniation causing increase opacity in the left midlung at the third through fourth intercostal space. Large size hematoma in the posterior lateral lower thoracic chest and subcutaneous tissue. Patient's hemoglobin dropped to 6.1 she did receive 2 units of packed red blood cells, hemoglobin went up to 8.4 after the transfusion and dropped to 7.8 this morning. Clinically patient looks much better today, reports she is feeling much better as well. She is off supplemental oxygen and currently 94%, continue to use incentive spirometer, chest tubes remain in place. 04/03: Patient examined in the ICU. Patient was up walking in the [place] yesterday and is doing well. Patient has left pleural chest tube and 2 YASMEEN drains to continuous suction with air leaks. She continues on Levaquin, vancomycin and Aztreonam per infectious disease. Hemoglobin stable, 7.9 this morning, WBC 14.2, sodium 133, BUN 8, creatinine 0.39. She remains afebrile, vital signs are stable she is 97% on 2 L via nasal cannula. Patient did have multiple episodes of paroxysmal atrial fibrillation last night, cardiology is on consult. Cardiology did increase her dose of Coreg to 12.5 twice a day, currently she is rate controlled and converted back to normal sinus rhythm. 04/04 2020: Patient remain in the ICU, still have chest tube in, there is a quite possibility might have pneumothorax and slight leak around the chest tube area a chest x-ray still pending at this point, patient still seen pulmonary and cardiothoracic might need another chest tube or adjustment of her current chest tube area. He'll otherwise pain is under control currently patient is hemodynamically stable. 04/05 2020 patient examined sitting comfortably in the chair. Complains of epigastric tenderness and burning in her chest. The patient denies any chest pain, shortness of breath dizziness or lightheadedness. She does have pain around her chest tube on the left but denies any cough or breathing difficulty. Patient evaluated by neurology with no plan to adjust the chest tubes. Chest x- ray was repeated with stable left pleural area collection and mild lung volume loss along with small to moderate left pleural fluid collection. Vitals are stable temperature of 98.1 pulse 77 and respiratory rate 16 blood pressure 139/72 oxygen saturation 96% on room air. Patient had persistent leukocytosis of 16.7 hemoglobin stable at 8.8 Creatinine 0.41 glucose is stable at 124. Patient stable on bronchodilators and aztreonam and Levaquin. For culture and wound cultures are negative. 04/06 patient examined sitting comfortably in the chair. Denies any epigastric tenderness or shortness of breath. Patient denies any chest pain, dizziness lightheadedness, fatigue. She denies any change in bowel habits or diarrhea or constipation. Patient does have some pain around the chest tube which is controlled with medication. Left pleural chest tube and 2 YASMEEN drains continued to suction with continuous air leak present and chest tube. Vitals are stable with a pulse of 93 respiratory rate 19 and blood pressure 136/87 oxygen saturation 92% on room air. On evaluation the patient's blood pressure today continues to have leukocytosis of 16.4 hemoglobin 8.3 platelet 903. Sodium remains at 133 creatinine 0.4. Continue amiodarone at 400 twice a day. Patient continues to remain in normal sinus rhythm. Patient continues to be on azt reonam and Levaquin. anidulafungin was added due to persistent leukocytosis. 04/07: Patient is seen today in the intensive care unit. 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 She remains with a chest tube in place as well as 2 YASMEEN drains. A PICC line has been ordered for today for IV antimicrobials. Patient is currently on Eraxis, Levaquin and Azactam. Patient's pulse ox see 92% on room air. She is reaching 750 on incentive spirometry. She has been afebrile, heart rate in the 70s, blood pressure 115/64. panel monitor is a sinus rhythm. Repeat blood work reveals WBC 17.6, hemoglobin 8.2, platelet count 889. Sodium 134 otherwise electrolytes are n ormal, creatinine 0.5. Blood sugar 104. Repeat chest x-ray reveals continued small to moderate left effusion and possible loculated pneumothorax on the left. Apical component is not as well as seen and estimated at 6 mm versus 1.5 cm earlier today. 2 pleural drains remain in the left side. Patient is multiple consultations in place including cardiothoracic surgery, ovary medicine, infectious disease. Cardiology is following on an as-needed basis. Discharge plan is tentatively home with VNA and IV antibiotics through [facility]. REVIEW OF SYSTEMS Constitutional: Denies chills, Denies fever, Denies lethargy, Denies malaise, Denies poor appetite, Denies weakness, Denies weight loss Eyes: denies decreased vision, denies diplopia, denies discharge, denies pain Cardiovascular: Endorses chest pain, endorses decreased exercise tolerance, endorses edema, Denies high blood pressure, Denies irregular heart beat, Denies palpitations, Denies paroxysmal nocturnal dyspnea, Denies rapid heart beat, Denies shortness of breath Respiratory: Denies congestion, Denies cough, Denies cough with sputum, Denies dyspnea, Denies home oxygen, Denies wheezing Gastrointestinal: Denies abdominal pain, Denies change in bowel habits, Denies coffee ground emesis, Denies early satiety, Denies excessive gas, Denies heartburn, Denies hematemesis, Denies hematochezia, Denies loss of appetite, Denies nausea, Denies vomiting Genitourinary: Denies dysuria, Denies flank pain, Denies kidney stones, Denies menorrhagia, Denies urgency, Denies urinary frequency Musculoskeletal: Denies gait dysfunction, Denies limitation of motion, Denies morning stiffness, Denies muscle cramps Integumentary: Denies rash, Denies wounds, Denies brittle nails, Denies change in hair/nails, Denies darkening of skin Neurological: Denies balance difficulties, Denies change in speech, Denies double vision, Denies gait dysfunction, Denies loss of vision, Denies motor disturbance, Denies numbness, Denies paralysis, Denies paresthesias, Denies seizures PHYSICAL EXAMINATION Gen: This is a 69-year-old female. Patient is resting bed appears to be comfortable and in no acute distress. HEENT: Supple, no lymphadenopathy, no thyroid enlargement, no carotid bruits. Lungs: Decreased breath sounds with scattered rhonchi Chest Wall: Decrease expansion with deep inspiration scar from her incision on the left side looks fine still have slight soreness pain and discomfort and tenderness in the left side of the rib cage left chest tube in place to suction Heart: Irregular rate and rhythm, S1, S2 normal, no murmur, rub or gallop. Back: Symmetric, no curvature, ROM normal, no CVA tenderness. Abdomen: Soft, non-tender, bowel sounds active all four quadrants, no masses, no organomegaly. Extremities: Extremities normal, atraumatic, no cyanosis or edema. Pulses: 2+ and symmetric. Skin: Skin color, texture, tugor normal, no rashes or lesions. Neurologic: Alert oriented x3 cranial nerves II through XII intact, no motor deficit. ASSESSMENT AND PLAN 1. New onset of A. fib with RVR, paroxysmal atrial fibrillation. Consult with cardiology appreciated. Patient is currently on Amiodarone 400 twice a day and metoprolol 25 twice a day. We'll hold anticoagulation until cleared by CTS. 2. Empyema left chest with bronchopleural fistula status post bronchoscopy with left chest tube placement with post exploratory thoracotomy with cryoablation of the intercostal nerve of L2 through 6. Reinforcement of bronchopleural fistula closure and modification of the left pleural space was done. Continue left pleural chest tube and left YASMEEN x2. Monitor for air leak. Continue incentive spirometer continue bronchodilators every 4-6 hours continue levofloxacin, aztreonam, Anidulafungin. Wound cultures and respiratory cultures negative 3. Squamous cell carcinoma of the left upper lobe: Post robotic-assisted left upper lobectomy with no dissection and repair of left main bronchus on 03/13 pathology suggestive of T2 b, N0, M0 4. COPD: Patient will be continue on DuoNeb and possible Pulmicort continue O2 and titrate dose higher. 5. PAD: Post left carotid endarterectomy has been doing well since. 6. History of breast cancer post left-sided mastectomy and chemotherapy has been in remission. 7. Hypertension: Was on Coreg has been doing well. 8. Generalized anxiety disorder and panic attacks. Continue lorazepam. 9. Mild anemia: Mostly iron deficiency continue iron supplement. 10. Hypoglycemia: On diet control. 11. DVT prophylaxis. Heparin subcu. 12. GI prophylaxis. Protonix 40 mg IV push daily. DISCHARGE PLAN Discharge plan is tentatively home with VNA and IV antibiotics through [facility]. Impression and plan of care have been directed as dictated by the signing physician. Lucy Bee nurse practitioner acting as scribe for signing physician. Objective - Vital Signs Vital signs: Vital Signs Temp 98.2 F 04/07/20 04:00 Pulse 74 04/07/20 07:00 Resp 17 04/07/20 07:00 BP 120/57 04/07/20 07:00 Pulse Ox 93 L 04/07/20 07:00 Intake & Output 04/06/20 04/07/20 04/07/20 18:59 06:59 18:59 Intake Total 560 700 30 Output Total 410 315 Balance 150 385 30 Weight 67 kg Intake: IV 360 360 30 Sodium Chloride 0.9% 1, 360 360 30 000 ml @ 30 mls/hr IV . Q24H MALA Rx#:[id number] Intake, IV Titration 100 Amount Anidulafungin 100 mg In 100 Sodium Chloride 0.9% 100 ml @ 84 mls/hr IVPB DAILY MALA Rx#:[id number] Oral 200 240 Output: Chest Tube Drainage 60 40 Chest tube #2 Anterior 40 20 YASMEEN drain labeled #1 0 Posterior YASMEEN drain labeled #2 0 Anterior YASMEEN drains 20 20 Urine 350 275 Other: Voiding Method Bedside Commode Bedside Commode Diaper Diaper Incontinent Incontinent External Catheter External Catheter # Voids 1 2 1 # Bowel Movements 2 1 ABP, PAP, CO, CI - Last Documented Arterial Blood Pressure 141/53 - Labs CBC & Chem 7: 04/07/20 02:58 04/07/20 02:58 Labs: Abnormal Lab Results - Last 24 Hours (Table) 04/07/20 04/07/20 Range/Units 02:58 02:58 WBC 17.6 H (3.8-10.6) k/uL RBC 2.93 L (3.80-5.40) m/uL Hgb 8.2 L (11.4-16.0) gm/dL Hct 25.9 L (34.0-46.0) % RDW 16.4 H (11.5-15.5) % Plt Count 889 H (150-450) k/uL Neutrophils # 12.8 H (1.3-7.7) k/uL Monocytes # 1.5 H (0-1.0) k/uL Sodium 134 L (137-145) mmol/L Creatinine 0.50 L (0.52-1.04) mg/dL Glucose 104 H (74-99) mg/dL
[2020-04-07] MEDS: SODIUM CHLORIDE 0.9% 1,000 ML IV SCH (10:33)
--- NOTE | 2020-04-07 12:56 | P.PN ---
Subjective Progress Note Date: 04/07/20 Principal diagnosis: Left bronchopleural fistula On 03/31/2020 the patient is being seen for a follow-up. 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 The patient was taken to the operating room approximately 2 weeks ago and the patient underwent a robotic-assisted left upper lobe resection. Postop, the patient was discharged home to be readmitted back to the hospital rule out empyema and air-fluid levels in the left chest along with a new onset atrial fibrillation and elevated white cell count. 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 A lesser the chest tube was placed at a time and drained turbid fluid. Gram stain was positive for gram-negative rods. Subsequently, the patient was taken back to the operating room and the patient underwent a thoracotomy and closure of a bronco pleural fistula with a muscle flap. The patient underwent a left posterior lateral thoracotomy, mobilization of the latissimus muscle flap, exploratory thoracotomy through the fourth intercostal space, closure of the bronchopleural fistula and decortication of the left pleural space and portion of the left lower lobe and cryo-ablation of the intercostal nerves II through through L6 was done and reinforcement of the fistula was done and modification of the left pleural space with latissimus dorsi flap. The patient intraoperatively was found to have an empyema of the left chest as mentioned. Postop, the patient was extubated and the patient was brought back to the intensive care unit for further monitoring. She was placed on oxygen at 3 L about 2 by nasal cannula. There was a left-sided chest tube in place with a Pleur-evac and there were also 2 YASMEEN drains within the pleural space. The patient was being covered with broad-spectrum antibiotics including a combination of Levaquin, aztreonam and vancomycin pending further cultures from the pleural space. The patient was on tramadol 50 mg every 6 hours when necessary basis for pain control. The patient is also on [place] 53 25 one tablet every 4-6 hours on a when necessary basis for pain control. The patient recovered from the atrial fibrillation and the patient is currently in sinus rhythm. Cardizem drip has been discontinued and the patient was placed on Coreg 6.25 mg by mouth twice a day. She is on heparin subcu for DVT prophylaxis. IV fluids running at 40 mL an hour of normal saline. Chest x-ray revealed a pleural air fluid levels/pneumothorax and the left upper chest area measuring 2.1 cm in size. A small left-sided pleural effusion/consolidation of the left lung base. There were 2 drains within the pleural space in addition to surgical changes are thoracotomy. The patient has a right IJ triple-lumen catheter in place. Liver output, the chest tube has put out approximately 20 mL over the past 24 hours and there is no evidence of any air leak. As for the YASMEEN drains,one in the pleural space and drained approximately 450 over the past 24 hours. Whereas the other YASMEEN drains are present in her lap and drained 60 mL and 20 mL over the past 12 hours. She is awake and alert. She is using incentive spirometer. She is afebrile. Hemodynamically stable. She is on no pressors. IV fluids are running at the rate of 40 mL an hour. She is tolerating her diet. Today's evaluation of 04/01/2020, the patient is being seen for a follow-up. The patient is doing essentially the same as yesterday. She is using incentive spirometer and she is pulling approximately 800 mL on her I asked. The patient had a follow-up chest x-ray today that showed no major interval change compared to yesterday's chest x-ray. I do not appreciate any pneumothorax. All of the drains in the tubes are still in place. Note that the patient has a regular posterior chest to talk with of which has been minimal in the order of 10 mL over the past 24 hours and it's still has some minimal amount of intermittent air leak. The YASMEEN drains in the flap is in order of 250 mL in the anterior pain and 125 in the posterior drain over the past 8 hours. His another third drain in the pleural space output of which is still 120 mL over the past 24 hours. Cultures still pending for now. There is gram-negative bacteria. The patient remains on a combination of Levaquin, aztreonam and vancomycin. Surgical wound site is dry clean and intact. The patient has some swelling along the left posterior chest area at the surgical sites. No hematoma collection. She has a congested cough. Unable to bring up much sputum. She is afebrile. Her white cell count has dropped and the count is down to 15. The patient remains on normal saline at the rate of 100 mL an hour. He was having a low urine output in the order of 10-20 mL yesterday and this is improved with the increase the fluid rates. Creatinine is stable for now. Her pain is under adequate control and she is on [place]. She has received cryoablation. She is postop day #2. Cardiac rhythm is sinus. There is no atrial fibrillation. The patient is off all drips and she is utilizing Coreg for rate control. The patient is seen today 04/02/2020 in follow-up in the intensive care unit. She is currently sitting up in bed. Awake and alert in no acute distress. She is maintaining good O2 saturations in the 90s on room air now. 0.9 normal sitting in 100 ML's per hour. She is postoperative day #3 of a left thoracotomy with deep decortication and muscle flap. Computed tomography scan of the chest yesterday revealed postsurgical changes of the left lung. 2 left-sided chest tubes in pleural spaces containing a small amount of residual fluid. There is a chest wall herniation causing increased opacity in the left midlung at the third to fourth intercostal space. Note is made of moderate to large sided organizing hematoma in the posterior lateral left thorax thoracic chest wall and subcutaneous tissue. Today's chest x-ray reveals chest tubes in place. Extensive pleural parenchymal opacities persist throughout the left hemithorax. A loculated component along the lateral mid lung may be slightly decreased in size. She is status post 2 units of packed red blood cells this admission. Current hemoglobin 7.8. White count 15.7. Sodium 133. Potassium 4.2. Crea tinine 0.43. She remains on bronchodilators, antibiotics in the form of aztreonam, vancomycin, Levaquin. The patient is seen today 04/03/2020 in follow-up in the intensive care unit. Postoperative day #4. She is awake and alert in no acute distress. Currently sitting up in bed. Maintaining good O2 saturation in the 90s on 2 L/m per nasal cannula. 0.9 normal saline at 30 mL per hour. Chest x-ray shows significant subcutaneous emphysema, rounded opacity within the left peripheral midlung. Improving infiltrates in the left lung field. No evidence of pneumothorax. 2 left-sided catheters remain in place. She is working well with the incentive spirometer. She is status post 2 units of packed red blood cells this admission. Current hemoglobin 7.9. Thoracic fluid cultures revealed no growth. Wound cultures reveal no growth. Pathology findings revealed fibrin debris with acute and chronic inflammation and a few reactive mesothelial elements. Negative for neoplasm. White count 14.2. Sodium 133. Potassium 2.9. Creatinine 0.39. Continues on bronchodilators, aztreonam, Levaquin. Heparin for DVT prophylaxis. Patient is seen today 04/04/2020 in follow-up in the intensive care unit. Postoperative day #5. She is sitting up in a chair at the bedside. Awake and alert in no acute distress. She denies any worsening shortness of breath, cough or congestion. She is maintaining O2 saturation the 90s on room air. 0.9 normal saline at 30 MLS per hour. She did have a brief episode of atrial fibrillation with a rapid ventricular response last night. She's had some epis odes of hypotension. Her Coreg was discontinued and she was started on low-dose metoprolol. Chest x-ray reveals postsurgical changes the left lung ray demonstrated. Improved left sided pleural air collection on the current study and improved left-sided volume loss. Some question of possible left-sided pneumothorax. YASMEEN drain remains to low continuous wall suction. Chest tube was placed to waterseal. White count 16.9. Hemoglobin 8.2. Sodium 133. Potassium 4.0. Creatinine 0.40. She remains on bronchodilators. Working well with the incentive spirometer. Antibiotics in the form of aztreonam and Levaquin. The patient is seen today 04/05/2020 in follow-up in the intensive care unit. Postoperative day #6. She is currently sitting up in a chair at the bedside. Awake and alert in no acute distress. She denies any worsening shortness of breath, cough or congestion. No hemoptysis. Currently maintaining O2 saturations in the 90s on room air. She has a 0.9 normal saline at 10 MLS per hour. Amiodarone drip at 0.5 mg/m. No recent arrhythmias. Currently in normal sinus rhythm. Left pleural chest tube and 2 YASMEEN drains remain in place to continue continuous suction with a continuous air leak and the atrium. Chest x- ray reveals postsurgical changes in the left lung ray demonstrated. Stable small sized left pleural air collection on current study and mild left volume loss along with stable small to moderate size left basilar pleural fluid collection. No new infiltrates seen. She is status post 2 units of packed red blood cells this admission. Current hemoglobin 8.8. Fluid cultures and wound cultures reveal no growth. White count 16.7. Sodium 134. Potassium 3.9. Creatinine 0.41. She remains on bronchodilators, aztreonam and Levaquin. The patient is seen today 04/06/2020 in follow-up in the intensive care unit. She is currently up in a chair at the bedside. Awake and alert in no acute distress. This is postoperative day #7. She is maintaining good O2 saturations in the 90s on room air. She has 0.9 normal saline at 30 MLS per hour. She has YASMEEN drains and a chest tube still in the left chest which are to wall suction. Chest x-ray continues to show stable small sized left sided pleural air collection and current study with chest tubes in place mid left-sided volume loss along with stable small to moderate left-sided pleural fluid. No new in filtrates. Bronchial wash cultures and fluid cultures reveal no growth. White count 16.4. Hemoglobin 8.3. Platelets continue to rise at 903,000. Sodium 133. Potassium 4.1. Creatinine 0.42. She remains on Levaquin and aztreonam. Continued on Eraxis. Heparin for DVT prophylaxis. Patient was reevaluated today on 04/07/2020, remains in the ICU, patient is on room air, O2 saturations 94%, she continues to have a loculated left-sided pneumothorax, patient is being treated for a left bronchopleural fistula. She does not seem to be in any distress, she is hemodynamically stable, continues to have a small air leak from the chest tube, remains on antibiotics in the form of Levaquin, Azactam, and she is on Eraxis. Patient is scheduled to have a PICC line today, and I will likely transfer the patient out of the ICU to a monitor bed on . CBC showed evidence of 17.6 hemoglobin is 8.2. Electrolytes are normal and renal profile is normal. Objective - Vital Signs Vital signs: Vital Signs Temp 98.4 F 04/07/20 12:00 Pulse 72 04/07/20 12:33 Resp 11 L 04/07/20 12:00 BP 142/62 04/07/20 12:00 Pulse Ox 94 L 04/07/20 12:00 Intake & Output 04/06/20 04/07/20 04/07/20 18:59 06:59 18:59 Intake Total 560 700 380 Output Total 410 315 320 Balance 150 385 60 Weight 67 kg Intake: IV 360 360 380 Anidulafungin 100 mg In 100 Sodium Chloride 0.9% 100 ml @ 84 mls/hr IVPB DAILY [facility] Rx#:[id number] Aztreonam 2 gm In Sodium 100 Chloride 0.9% 100 ml @ 33 .3 mls/hr IVPB Q8HR [facility] Rx#:[id number] Sodium Chloride 0.9% 1, 360 360 180 000 ml @ 30 mls/hr IV . Q24H [facility] Rx#:[id number] Intake, IV Titration 100 Amount Anidulafungin 100 mg In 100 Sodium Chloride 0.9% 100 ml @ 84 mls/hr IVPB DAILY [facility] Rx#:[id number] Oral 200 240 Output: Chest Tube Drainage 60 40 20 Chest tube #2 Anterior 40 20 20 YASMEEN drain labeled #1 0 Posterior YASMEEN drain labeled #2 0 Anterior YASMEEN drains 20 20 Urine 350 275 300 Other: Voiding Method Bedside Commode Bedside Commode Bedside Commode Diaper Diaper Diaper Incontinent Incontinent Incontinent External Catheter External Catheter External Catheter # Voids 1 2 1 # Bowel Movements 2 1 ABP, PAP, CO, CI - Last Documented Arterial Blood Pressure 141/53 - Exam GENERAL EXAM: Revealed 69-year-old female in no distress. Head: Atraumatic, normocephalic. HEENT: PERRLA, EOMI, no icterus. CHEST: Left pleural chest tube into YASMEEN drains noted. Continuous air leak present in the chest tube chamber. LUNGS: Equal air entry with bilateral scattered rhonchi more so on the left lung CVS: S1 and S2 normal with no audible murmur, regular rhythm. ABDOMEN: No hepatosplenomegaly, normal bowel sounds, no guarding or rigidity. SPINE: No scoliosis or deformity SKIN: No rashes CENTRAL NERVOUS SYSTEM: No focal deficits, tone is normal in all 4 extremities. EXTREMITIES: There is no peripheral edema. No clubbing, no cyanosis. Peripheral pulses are intact. - Labs CBC & Chem 7: 04/07/20 02:58 04/07/20 02:58 Labs: Abnormal Lab Results - Last 24 Hours (Table) 04/07/20 04/07/20 Range/Units 02:58 02:58 WBC 17.6 H (3.8-10.6) k/uL RBC 2.93 L (3.80-5.40) m/uL Hgb 8.2 L (11.4-16.0) gm/dL Hct 25.9 L (34.0-46.0) % RDW 16.4 H (11.5-15.5) % Plt Count 889 H (150-450) k/uL Neutrophils # 12.8 H (1.3-7.7) k/uL Monocytes # 1.5 H (0-1.0) k/uL Sodium 134 L (137-145) mmol/L Creatinine 0.50 L (0.52-1.04) mg/dL Glucose 104 H (74-99) mg/dL Microbiology - Last 24 Hours (Table) 04/06/20 22:00 Sputum Culture - Preliminary Sputum Assessment and Plan Assessment: Impression: Status post lobectomy for bronchogenic carcinoma. This was a squamous cell carcinoma and her lobectomy was 03/13/2020. New onset atrial fibrillation, presently well-controlled with oral medication. Moderate COPD FEV1 is 72%. Chronic tobacco dependence syndrome. History of degenerative joint disease. 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 Status post Left posterior lateral thoracotomy, mobilization of latissimus muscle flap, exploratory thoracotomy through the fourth interspace, closure of bronchopleural fistula, decortication of left pleural space and portion of the left lower lobe, cryoablation of intercostal nerves L2 through L6, reinforcement of the bronchopleural fistula closure and modification in the left pleural space with the latissimus dorsi flap. Post operative day #8 Remains on antibiotics in the form of aztreonam and Levaquin, and Eraxis. Recommendation: Continue left pleural chest tube and left YASMEEN pleural tube to low continuous suction. And continue to monitor for air leak. Continue incentive spirometry. Continue bronchodilators. Continue cardiac meds including Lopressor and amiodarone. Continue GI and DVT prophylaxis. Continue antibiotics and antifungal then. Transfer out of the ICU to a monitor bed. Increase activity as tolerated. Discussed her condition with daughter over the phone. We'll continue to follow. Prognosis remains guarded Time with Patient: Less than 30
[2020-04-07] MEDS: LEVOFLOXACIN 750 MG TAB PO SCH (13:36)
[2020-04-07] MEDS: traMADol 50 MG TAB PO PRN (13:36)
--- NOTE | 2020-04-07 14:58 | XR ---
EXAMINATION TYPE: XR chest 1V portable DATE OF EXAM: 04/07/2020 Comparison: Earlier today Clinical History: 69-year-old female pneumothorax Findings: Interval removal right IJ CVC in the right PICC tip remains in the right atrium. Heart normal size. H yperinflation. 2 pleural drainage catheters remain on the left. Suspect they loculated hydropneumotho rax in the mid and lower lung. The previous apical left pneumothorax is no longer well seen. Staple l ine from prior surgery at the left hilum. Small to moderate effusion remains on the left. Some subcut aneous emphysema also persists on the left side. Impression: 1. COPD. Interval removal of right IJ CVC catheter. 2. 2 pleural drainage catheters on the left. Continued [id number] left effusion and continued possible loculated small pneumothorax at the left mid lung. The apical component to the pneumothorax is no longer seen.
[2020-04-07] MEDS ORDERED: VANCOMYCIN IV PER PHARMACY 1 EACH MISC MISCELLANE PRN (21:51)
--- NOTE | 2020-04-07 22:58 | PN ---
PROGRESS NOTE DATE OF SERVICE: 04/07/2020 REASON FOR FOLLOW UP: 1. Empyema. 2. Elevated white count. INTERVAL HISTORY: Patient is currently afebrile. The patient is breathing comfortably. Patient denies having any chest pain, shortness of breath. She did have some cough but not bringing any sputum. No nausea. No vomiting. No abdominal pain or diarrhea. PHYSICAL EXAMINATION: Blood pressure 135/70 with a pulse of 87, temperature 98. She is 93% on room air. General description: The patient is an elderly female up in the chair in no distress. Respiratory system: Unlabored breathing, decreased intensity in breath sounds in the base, with no wheeze. Heart S1, S2. Regular rate and rhythm. Abdomen soft. No tenderness. LABS: Hemoglobin 8.8, white count 17.6, BUN of 15, creatinine 0.50. Cultures so far negative. Repeat sputum is currently pending. DIAGNOSTIC IMPRESSION AND PLAN: Patient admitted to the hospital with left-sided empyema in this patient status post left upper lobectomy status post chest tube placement. Culture has been negative. Initial Gram stain shows gram-negative bacilli. Patient is covered with Azactam because of her allergies. Now with persistent worsening of the white count. IJ has been discontinued. Vancomycin will be added while waiting for the culture to finalize and monitor clinical course closely. MMODL / IJN: [id number] /
[2020-04-07] MEDS ORDERED: VANCOMYCIN 1,250 MG in SODIUM CHLORIDE 0.9% 250 ML IVPB ONE (23:00)
[2020-04-08] MEDS: AZTREONAM 2 GM in SODIUM CHLORIDE 0.9% 100 ML IVPB SCH ×4 (00:50→23:33)
[2020-04-08 04:22] LABS: Anisocytosis Slight; HCT 26.8 % (34.0-46.0); HGB 8.4 gm/dL (11.4-16.0); Hypochromasia Moderate; MCH 27.6 pg (25.0-35.0); MCHC 31.2 g/dL (31.0-37.0); MCV 88.6 fL (80.0-100.0); Mean Platelet Volume 6.3; Platelet Count 952 k/uL (150-450); RBC 3.03 m/uL (3.80-5.40); RDW 16.6 % (11.5-15.5)
[2020-04-08 04:54] LABS: African American GFR (CKD) >90 (>60 ml/min/1.73 sqM); Anion Gap 2 mmol/L; Blood Urea Nitrogen 14 mg/dL (7-17); Carbon Dioxide 31 mmol/L (22-30); Chloride 103 mmol/L (98-107); Glucose 102 mg/dL (74-99); Non-African American GFR(CKD) >90 (>60 ml/min/1.73 sqM); Potassium 4.4 mmol/L (3.5-5.1); Sodium 136 mmol/L (137-145)
[2020-04-08] MEDS: PANTOPRAZOLE 40 MG TABLET PO SCH (06:24)
[2020-04-08] MEDS: IPRATROPIUM-ALBUTEROL 3 ML NEB INHALATION SCH ×3 (07:23→20:06)
[2020-04-08] MEDS: ACETYLCYSTEINE 800 MG/4 ML VIAL INHALATION SCH ×4 (07:23→20:05)
[2020-04-08] MEDS: guaiFENesin 600 MG TABLET.ER PO SCH ×2 (08:16→18:34)
[2020-04-08] MEDS: MAGNESIUM OXIDE 400 MG TAB PO SCH (08:16)
[2020-04-08] MEDS: METOPROLOL TARTRATE 25 MG TAB PO SCH ×2 (08:16→20:24)
[2020-04-08] MEDS: ZINC SULFATE 220 MG CAP PO SCH (08:16)
[2020-04-08] MEDS: CALCIUM CARB-VIT D 500 MG-5 MCG TAB PO SCH (08:16)
[2020-04-08] MEDS: HEPARIN SODIUM,PORCINE 5,000 UNIT/ML 1 ML VIAL SQ SCH ×3 (08:17→23:31)
[2020-04-08] MEDS: AMIODARONE 200 MG TAB PO SCH ×2 (08:17→20:24)
[2020-04-08] MEDS: LETROZOLE 2.5 MG TAB PO SCH (08:17)
[2020-04-08] MEDS: ANIDULAFUNGIN 100 MG in SODIUM CHLORIDE 0.9% 100 ML IVPB SCH (08:17)
--- NOTE | 2020-04-08 08:57 | P.PN ---
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 Previous medical history of squamous cell carcinoma of the left lung status post robotically assisted left upper lobectomy with mediastinal lymph node dissection and repair of left main bronchus on 03/13/2020 with pathology consistent with T2b, N0, M0, breast cancer status post left mastectomy in 2006 with chemo, previous tobacco dependence with cessation in February 2020, moderate chronic restrictive pulmonary disease with a recent FEV1 value 72% of predicted value, hypertension, left carotid stenosis status post left carotid endarterectomy in 2019, degenerative joint disease. POD #9 Left posterior lateral thoracotomy, mobilization of latissimus muscle flap, exploratory thoracotomy through the fourth intercostal space, closure of bronchopleural fistula, decortication of left pleural space and portion of the left lower lobe, cryoablation of intercostal nerves L2 through L6, reinforcement of the bronchopleural fistula closure and modification in the left pleural space with the latissimus dorsi flap. POD #10 Fiberoptic bronchoscopy, left chest tube placement. Postoperative acute blood loss anemia, expected, dilutional. The patient is currently sitting up in a recliner in no acute distress. She states pain is controlled on current pain medication regimen, denies shortness of breath. States she did get sleep last night. She is a little down and frustrated this morning about the number of lines and tubes remaining and feeling like it's limiting her movement. Remains in normal sinus rhythm, curr ently on oral amiodarone and lopressor. Left pleural chest tube placed to water seal yesterday with intermittent air leak present, 2 YASMEEN drains continue to suction. She has ambulated in the hallway several times without difficulty with a walker and minimal assistance for holding her tubes and wires. Aztreonam, Eraxis continue per infectious disease, Vanco added due to continued leukocytosis, remains afebrile, sputum culture sent 04/06/20, pending, preliminary gram stain without microbial growth. Right IJ central line discontinue yesterday after PICC line placement. Transfer orders placed yesterday by pulmonology, remains in ICU due to lack of beds. Daughter continues to be updated via phone with all questions answered to the best of my ability. Objective - Vital Signs Vital signs: Vital Signs Temp 98.5 F 04/08/20 04:00 Pulse 71 04/08/20 04:00 Resp 20 04/08/20 04:00 BP 146/79 04/08/20 04:00 Pulse Ox 95 04/08/20 04:00 Intake & Output 04/07/20 04/08/20 04/08/20 18:59 06:59 18:59 Intake Total 380 160 Output Total 720 1500 650 Balance -340 -1340 -650 Weight 67.1 kg Intake: IV 380 160 Anidulafungin 100 mg In 100 Sodium Chloride 0.9% 100 ml @ 84 mls/hr IVPB DAILY [facility] Rx#:[id number] Aztreonam 2 gm In Sodium 100 100 Chloride 0.9% 100 ml @ 33 .3 mls/hr IVPB Q8HR [facility] Rx#:[id number] Sodium Chloride 0.9% 1, 180 60 000 ml @ 30 mls/hr IV . Q24H [facility] Rx#:[id number] Output: Chest Tube Drainage 20 Chest tube #2 Anterior 20 Urine 700 1500 650 Other: Voiding Method Bedside Commode Bedside Commode Diaper Diaper Incontinent Incontinent External Catheter External Catheter # Voids 1 1 ABP, PAP, CO, CI - Last Documented Arterial Blood Pressure 141/53 - Constitutional General appearance: Present: cooperative, no acute distress - Respiratory Details: Lung sounds diminished bilaterally. Respirations even, non-labored. Currently on room air with oxygen saturation 91-95%. Able to achieve 750 mL on her incentive spirometer, strong cough. Left pleural chest tube present to water seal, 20 mL serosanguinous output in the last 24 hours, intermittent air leak present. Two JPs present to continuous wall suction, 100 mL sanguinous drainage in the last 24 hours. - Cardiovascular Details: S1/S2 present, regular rate and rhythm, sinus rhythm on telemetry with heart rate in the 70s. No edema present. No calf pain or tenderness present. Antiembolism stockings, SCDs present. Right PICC line present. - Gastrointestinal Gastrointestinal Comment(s): Abdomen soft, non-distended, non-tender. Active bowel sounds present in all 4 quadrants. Tolerating oral intake. Positive bowel movement 04/07/20 - Genitourinary Genitourinary Comment(s): Patient continues to void clear yellow urine - Integumentary Integumentary Comment(s): Skin is warm and dry. Left lateral thoracotomy incision clean, dry and approx imated. No drainage or redness is present. Mininmal residual swelling to her left posterior chest wall. Soft and nontender to palpate. - Neurologic Neurologic: Present: CNII-XII intact - Musculoskeletal Musculoskeletal: Present: gait normal, strength equal bilaterally - Psychiatric Psychiatric: Present: A&O x's 3, appropriate affect, intact judgment & insight - Allied health notes Allied health notes reviewed: nursing - Labs CBC & Chem 7: 04/08/20 04:00 04/08/20 04:00 Labs: Abnormal Lab Results - Last 24 Hours (Table) 04/08/20 04/08/20 Range/Units 04:00 04:00 WBC 16.0 H (3.8-10.6) k/uL RBC 3.03 L (3.80-5.40) m/uL Hgb 8.4 L (11.4-16.0) gm/dL Hct 26.8 L (34.0-46.0) % RDW 16.6 H (11.5-15.5) % Plt Count 952 H (150-450) k/uL Sodium 136 L (137-145) mmol/L Carbon Dioxide 31 H (22-30) mmol/L Creatinine 0.47 L (0.52-1.04) mg/dL Glucose 102 H (74-99) mg/dL Microbiology - Last 24 Hours (Table) 04/06/20 22:00 Gram Stain - Preliminary Sputum Sputum Culture - Preliminary - Imaging and Cardiology Chest x-ray: image reviewed Assessment and Plan Assessment: 1. Empyema left chest with bronchopleural fistula status post fiberoptic bronchoscopy with left chest tube placement, left posterior lateral thoracotomy, mobilization of latissimus muscle flap, exploratory thoracotomy through the fourth intercostal space, closure of bronchopleural fistula, decortication of left pleural space and portion of the left lower lobe, cryoablation of intercostal nerves L2 through L6, reinforcement of the bronchopleural fistula closure and modification in the left pleural space with the latissimus dorsi flap 2. Leukocytosis, secondary to empyema, continued, all cultures negative to date 3. New onset atrial fibrillation with RVR, remains in NSR 4. Squamous cell carcinoma of the left lung status post robotically assisted left upper lobectomy with mediastinal lymph node dissection and repair of left main bronchus on 03/13/2020 with pathology consistent with T2b, N0, M0 5. Breast cancer status post left mastectomy in 2006 with chemo 6. Previous tobacco dependence with cessation in February 2020 7. Moderate chronic restrictive pulmonary disease with a recent FEV1 value 72% of predicted value 8. Hypertension 9. Left carotid stenosis status post left carotid endarterectomy in 2019 10. Degenerative joint disease 11. Postoperative acute blood loss anemia, expected, dilutional Plan: 1. Continue left pleural chest tube placed to water seal. Continue left YASMEEN pleural tube to continuous wall suction. Continue to monitor for airleak resolution. Record strict inaccurate I's and O's. 2. Encourage use of her incentive spirometry 10 times every hour while awake. 3. Bronchodilator management per pulmonology 4. Continue lopressor, amio. No anticoagulation at this time 5. Continue to monitor daily labs and chest x-rays. 6. GI and DVT prophylaxis. 7. Continue to reinforce the importance of continued smoking cessation. 8. Antibiotic management per infectious disease recommendations, currently on aztreonam, eraxis for coverage, Vanco added. Remains afebrile. Bronchial washings, cultures negative. Sputum culture 04/06/20 preliminary gram stain without growth 9. Increase activity as tolerated, out of bed for all meals, ambulate as chelsi ated. Physical and occupational therapy following. 10. Pain control per current medication regimen 11. Transfer out of ICU per manager clinical when bed available. Patient should remain on telemetry due to recent atrial fibrillation 12. More recommendations to follow based on patient's clinical course. Time with Patient: Greater than 30
--- NOTE | 2020-04-08 10:16 | XR ---
EXAMINATION TYPE: XR chest 1V portable DATE OF EXAM: 04/08/2020 COMPARISON: 04/07/2020 INDICATION: Post bronchopleural fistula repair TECHNIQUE: Single frontal view of the chest is obtained. FINDINGS: The heart size is normal. The pulmonary vasculature is normal. There is stable pneumothorax on the left. Surgical clips are in the left chest wall. Subcutaneous air is present. Left chest tubes are present. Right-sided PICC line is present IMPRESSION: 1. Stable left pneumothorax. Left chest tubes remain in position
[2020-04-08] MEDS: VANCOMYCIN 1,250 MG in SODIUM CHLORIDE 0.9% 250 ML IVPB SCH ×2 (11:15→23:31)
[2020-04-08] MEDS: SODIUM CHLORIDE 0.9% 1,000 ML IV SCH (11:15)
--- NOTE | 2020-04-08 12:45 | P.PN ---
Subjective Progress Note Date: 04/08/20 HISTORY OF PRESENT ILLNESS 69-year-old female one of Dr. 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 Patient also survival of rest cancer post left mastectomy in 2010 post chemotherapy also she is known to have history of carotid stenosis post left carotid endarterectomy in 2018 previous history of tobacco use she quit in February this year continue to have moderate COPD with FEV1 of 72 percentile history of hypertension hyperlipidemia. Patient left the hospital on March 17 after surgery was seen pulmonary and cardiothoracic surgery on regular basis she returned to the emergency department shortly after midnight today because of worsening dyspnea and shortness of breath with significant tachycardia according to patient she become more symptomatic with rapid ventricular response on and off become more symptomatic causing worsening shortness of breath. Was seen and evaluated demurs department her white blood cell was 18.5 hemoglobin 10.5 hematocrit 32.9 d-dimer was 2.48 patient COVID 19 testing was negative she found to be in A. fib with RVR pulse 153 beats per minutes cardiology were called along with cardiothoracic patient chest x-ray showed pleural effusion and pneumothorax of the left side. She was started on Cardizem drip brought the pulse rate down no anticoagulation was started this point patient was on Plavix since her carotid surgery and no previous history of A. fib her pulse rate used to be well controlled on Coreg 6.25 mg twice a day in the past. Patient will be going to the OR by cardiothoracic and she will have more repair along with chest tube as well. 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 Patient will be back to the ICU after surgery. 03/31: Patient evaluated in the ICU this morning, sitting up in the bedside chair, in no acute distress. She is postop day #1 status post left posterior lateral thoracotomy, closure of the bronchopleural fistula, and cryoablation of the intercostal nerves. Patient still has 2 left-sided chest tubes in place, she continues on Levaquin, vancomycin, and Aztreonam. Cultures are still pending, infectious disease on consult. Repeat chest x-ray shows residual left pneumothorax and left perihilar consolidation. Vital signs are stable, she is afebrile 98.0, heart rate is 90, respiratory 23, temperature 128/57, she's 95% on 3 L via nasal cannula. 04/01: Patient evaluated in the ICU, sitting up in the bedside chair. Nurse states she went to stand patient up to get her out of bed and she had a syncople episode. She was noted to be hypotensive 63/37 and tachycardic with a heart r ate of 111. Stat CBC and repeat chest x-ray ordered, patient placed back in bed blood, pressure did come up to 99/47, heart rate 90. Hemoglobin 7.7, platelets 729, sodium 130, creatinine 0.51, BUN 16. Left pleural chest tube in place, left pleural YASMEEN drain in place and continues to drain serosanguineous drainage, left lateral chest YASMEEN drains [address] with bulb suction. Repeat chest x-ray bentley wed some improvement of aeration throughout the remaining left lung post lobectomy, pneumothorax remains. 04/02: Patient remains in the ICU. Patient had chest CT yesterday which showed chest wall herniation causing increase opacity in the left midlung at the third through fourth intercostal space. Large size hematoma in the posterior lateral lower thoracic chest and subcutaneous tissue. Patient's hemoglobin dropped to 6.1 she did receive 2 units of packed red blood cells, hemoglobin went up to 8.4 after the transfusion and dropped to 7.8 this morning. Clinically patient looks much better today, reports she is feeling much better as well. She is off supplemental oxygen and currently 94%, continue to use incentive spirometer, chest tubes remain in place. 04/03: Patient examined in the ICU. Patient was up walking in the [place] yesterday and is doing well. Patient has left pleural chest tube and 2 YASMEEN drains to continuous suction with air leaks. She continues on Levaquin, vancomycin and Aztreonam per infectious disease. Hemoglobin stable, 7.9 this morning, WBC 14.2, sodium 133, BUN 8, creatinine 0.39. She remains afebrile, vital signs are stable she is 97% on 2 L via nasal cannula. Patient did have multiple episodes of paroxysmal atrial fibrillation last night, cardiology is on consult. Cardiology did increase her dose of Coreg to 12.5 twice a day, currently she is rate controlled and converted back to normal sinus rhythm. 04/04 2020: Patient remain in the ICU, still have chest tube in, there is a quite possibility might have pneumothorax and slight leak around the chest tube area a chest x-ray still pending at this point, patient still seen pulmonary and cardiothoracic might need another chest tube or adjustment of her current chest tube area. He'll otherwise pain is under control currently patient is hemodynamically stable. 04/05 2020 patient examined sitting comfortably in the chair. Complains of epigastric tenderness and burning in her chest. The patient denies any chest pain, shortness of breath dizziness or lightheadedness. She does have pain around her chest tube on the left but denies any cough or breathing difficulty. Patient evaluated by neurology with no plan to adjust the chest tubes. Chest x- ray was repeated with stable left pleural area collection and mild lung volume loss along with small to moderate left pleural fluid collection. Vitals are stable temperature of 98.1 pulse 77 and respiratory rate 16 blood pressure 139/72 oxygen saturation 96% on room air. Patient had persistent leukocytosis of 16.7 hemoglobin stable at 8.8 Creatinine 0.41 glucose is stable at 124. Patient stable on bronchodilators and aztreonam and Levaquin. For culture and wound cultures are negative. 04/06 patient examined sitting comfortably in the chair. Denies any epigastric tenderness or shortness of breath. Patient denies any chest pain, dizziness lightheadedness, fatigue. She denies any change in bowel habits or diarrhea or constipation. Patient does have some pain around the chest tube which is controlled with medication. Left pleural chest tube and 2 YASMEEN drains continued to suction with continuous air leak present and chest tube. Vitals are stable with a pulse of 93 respiratory rate 19 and blood pressure 136/87 oxygen saturation 92% on room air. On evaluation the patient's blood pressure today continues to have leukocytosis of 16.4 hemoglobin 8.3 platelet 903. Sodium remains at 133 creatinine 0.4. Continue amiodarone at 400 twice a day. Patient continues to remain in normal sinus rhythm. Patient continues to be on azt reonam and Levaquin. anidulafungin was added due to persistent leukocytosis. 04/07: Patient is seen today in the intensive care unit. 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 She remains with a chest tube in place as well as 2 YASMEEN drains. A PICC line has been ordered for today for IV antimicrobials. Patient is currently on Eraxis, Levaquin and Azactam. Patient's pulse ox see 92% on room air. She is reaching 750 on incentive spirometry. She has been afebrile, heart rate in the 70s, blood pressure 115/64. 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 Repeat blood work reveals WBC 17.6, hemoglobin 8.2, platelet count 889. Sodium 134 otherwise electrolytes are n ormal, creatinine 0.5. Blood sugar 104. Repeat chest x-ray reveals continued small to moderate left effusion and possible loculated pneumothorax on the left. Apical component is not as well as seen and estimated at 6 mm versus 1.5 cm earlier today. 2 pleural drains remain in the left side. Patient is multiple consultations in place including cardiothoracic surgery, ovary medicine, infectious disease. Cardiology is following on an as-needed basis. Discharge plan is tentatively home with VNA and IV antibiotics through [facility]. 04/08: Patient remains in intensive care unit and waiting for a bed on the cardiac stepdown unit. She states her breathing is better today. Patient is seen sitting in a recliner and appears to be comfortable. chest tube 1, YASMEEN drain 2. Pulse ox 95% on room air, on recheck was 88 on room air. She has been afebrile, heart rate 80, blood pressure 147/71. Patient had a midline placed yesterday. Hemoglobin 8.4, WBC 16, platelet count 952. Sodium 136, potassium 4.4, chloride 103, CO2 31, BUN 14 and creatinine 0.47. Repeat chest x-ray reveals stable left pneumothorax. Left chest tubes in place. REVIEW OF SYSTEMS Constitutional: Denies chills, Denies fever, Denies lethargy, Denies malaise, Denies poor appetite, reports weakness, Denies weight loss Eyes: denies decreased vision, denies diplopia, denies discharge, denies pain Cardiovascular: Endorses chest pain, endorses decreased exercise tolerance, endorses edema, Denies high blood pressure, Denies irregular heart beat, Denies palpitations, Denies paroxysmal nocturnal dyspnea, Denies rapid heart beat, Denies shortness of breath Respiratory: Denies congestion, Denies cough, Denies cough with sputum, Denies dyspnea, Denies home oxygen, Denies wheezing Gastrointestinal: Denies abdominal pain, Denies change in bowel habits, Denies coffee ground emesis, Denies early satiety, Denies excessive gas, Denies heartburn, Denies hematemesis, Denies hematochezia, Denies loss of appetite, Denies nausea, Denies vomiting Genitourinary: Denies dysuria, Denies flank pain, Denies kidney stones, Denies menorrhagia, Denies urgency, Denies urinary frequency Musculoskeletal: Denies gait dysfunction, Denies limitation of motion, Denies morning stiffness, Denies muscle cramps Integumentary: Denies rash, Denies wounds, Denies brittle nails, Denies change in hair/nails, Denies darkening of skin Neurological: Denies balance difficulties, Denies change in speech, Denies double vision, Denies gait dysfunction, Denies loss of vision, Denies motor disturbance, Denies numbness, Denies paralysis, Denies paresthesias, Denies seizures PHYSICAL EXAMINATION Gen: This is a 69-year-old female. Patient is resting in recliner and appears to be comfortable and in no acute distress. HEENT: Supple, no lymphadenopathy, no thyroid enlargement, no carotid bruits. Lungs: Decreased breath sounds with scattered rhonchi Chest Wall: Decrease expansion with deep inspiration scar from her incision on the left side looks fine still have slight soreness pain and discomfort and tenderness in the left side of the rib cage left chest tube in place. Heart: Regular rate and rhythm, S1, S2 normal, no murmur, rub or gallop. Back: Symmetric, no curvature, ROM normal, no CVA tenderness. Abdomen: Soft, non-tender, bowel sounds active all four quadrants, no masses, no organomegaly. Extremities: Extremities normal, atraumatic, no cyanosis or edema. Pulses: 2+ and symmetric. Skin: Skin color, texture, tugor normal, no rashes or lesions. Neurologic: Alert oriented x3 cranial nerves II through XII intact, no motor deficit. ASSESSMENT AND PLAN 1. New onset of A. fib with RVR, paroxysmal atrial fibrillation. Patient is currently in sinus rhythm. Consult with cardiology appreciated. Patient is currently on Amiodarone 400 twice a day and metoprolol 25 twice a day. We'll hold anticoagulation until cleared by CTS. 2. Empyema left chest with bronchopleural fistula status post bronchoscopy with left chest tube placement with post exploratory thoracotomy with cryoablation of the intercostal nerve of L2 through 6. Reinforcement of bronchopleural fistula closure and modification of the left pleural space was done. Continue left pleural chest tube and left YASMEEN x2. Monitor for air leak. Continue incentive spirometer continue bronchodilators every 4-6 hours continue levofloxacin, aztreonam, Anidulafungin. Wound cultures and respiratory cultures negative 3. Squamous cell carcinoma of the left upper lobe: Post robotic-assisted left upper lobectomy with no dissection and repair of left main bronchus on 03/13 pathology suggestive of T2 b, N0, M0 4. COPD: Patient will be continue on DuoNeb and possible Pulmicort continue O2 and titrate dose higher. 5. PAD: Post left carotid endarterectomy has been doing well since. 6. History of breast cancer post left-sided mastectomy and chemotherapy has been in remission. 7. Hypertension: Was on Coreg has been doing well. 8. Generalized anxiety disorder and panic attacks. Continue lorazepam. 9. Mild anemia: Mostly iron deficiency continue iron supplement. 10. Hypoglycemia: On diet control. 11. DVT prophylaxis. Heparin subcu. 12. GI prophylaxis. Protonix 40 mg IV push daily. DISCHARGE PLAN Discharge plan is tentatively home with VNA and IV antibiotics through [facility]. Impression and plan of care have been directed as dictated by the signing physician. Lucy Bee nurse practitioner acting as scribe for signing physician. Objective - Vital Signs Vital signs: Vital Signs Temp 98.0 F 04/08/20 08:00 Pulse 80 04/08/20 08:00 Resp 16 04/08/20 08:00 BP 147/71 04/08/20 08:00 Pulse Ox 88 L 04/08/20 08:00 Intake & Output 04/07/20 04/08/20 04/08/20 18:59 06:59 18:59 Intake Total 380 160 Output Total 720 1500 650 Balance -340 -1340 -650 Weight 67.1 kg Intake: IV 380 160 Anidulafungin 100 mg In 100 Sodium Chloride 0.9% 100 ml @ 84 mls/hr IVPB DAILY [facility] Rx#:[id number] Aztreonam 2 gm In Sodium 100 100 Chloride 0.9% 100 ml @ 33 .3 mls/hr IVPB Q8HR [facility] Rx#:[id number] Sodium Chloride 0.9% 1, 180 60 000 ml @ 30 mls/hr IV . Q24H [facility] Rx#:[id number] Output: Chest Tube Drainage 20 Chest tube #2 Anterior 20 Urine 700 1500 650 Other: Voiding Method Bedside Commode Bedside Commode Diaper Diaper Incontinent Incontinent External Catheter External Catheter # Voids 1 1 ABP, PAP, CO, CI - Last Documented Arterial Blood Pressure 141/53 - Labs CBC & Chem 7: 04/08/20 04:00 04/08/20 04:00 Labs: Abnormal Lab Results - Last 24 Hours (Table) 04/08/20 04/08/20 Range/Units 04:00 04:00 WBC 16.0 H (3.8-10.6) k/uL RBC 3.03 L (3.80-5.40) m/uL Hgb 8.4 L (11.4-16.0) gm/dL Hct 26.8 L (34.0-46.0) % RDW 16.6 H (11.5-15.5) % Plt Count 952 H (150-450) k/uL Sodium 136 L (137-145) mmol/L Carbon Dioxide 31 H (22-30) mmol/L Creatinine 0.47 L (0.52-1.04) mg/dL Glucose 102 H (74-99) mg/dL Microbiology - Last 24 Hours (Table) 04/06/20 22:00 Gram Stain - Preliminary Sputum Sputum Culture - Preliminary
--- NOTE | 2020-04-08 13:01 | P.PN ---
Subjective Progress Note Date: 04/08/20 Principal diagnosis: Left bronchopleural fistula On 03/31/2020 the patient is being seen for a follow-up. 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 The patient was taken to the operating room approximately 2 weeks ago and the patient underwent a robotic-assisted left upper lobe resection. Postop, the patient was discharged home to be readmitted back to the hospital rule out empyema and air-fluid levels in the left chest along with a new onset atrial fibrillation and elevated white cell count. 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 A lesser the chest tube was placed at a time and drained turbid fluid. Gram stain was positive for gram-negative rods. Subsequently, the patient was taken back to the operating room and the patient underwent a thoracotomy and closure of a bronco pleural fistula with a muscle flap. The patient underwent a left posterior lateral thoracotomy, mobilization of the latissimus muscle flap, exploratory thoracotomy through the fourth intercostal space, closure of the bronchopleural fistula and decortication of the left pleural space and portion of the left lower lobe and cryo-ablation of the intercostal nerves II through through L6 was done and reinforcement of the fistula was done and modification of the left pleural space with latissimus dorsi flap. The patient intraoperatively was found to have an empyema of the left chest as mentioned. Postop, the patient was extubated and the patient was brought back to the intensive care unit for further monitoring. She was placed on oxygen at 3 L about 2 by nasal cannula. There was a left-sided chest tube in place with a Pleur-evac and there were also 2 YASMEEN drains within the pleural space. The patient was being covered with broad-spectrum antibiotics including a combination of Levaquin, aztreonam and vancomycin pending further cultures from the pleural space. The patient was on tramadol 50 mg every 6 hours when necessary basis for pain control. The patient is also on [place] 53 25 one tablet every 4-6 hours on a when necessary basis for pain control. The patient recovered from the atrial fibrillation and the patient is currently in sinus rhythm. Cardizem drip has been discontinued and the patient was placed on Coreg 6.25 mg by mouth twice a day. She is on heparin subcu for DVT prophylaxis. IV fluids running at 40 mL an hour of normal saline. Chest x-ray revealed a pleural air fluid levels/pneumothorax and the left upper chest area measuring 2.1 cm in size. A small left-sided pleural effusion/consolidation of the left lung base. There were 2 drains within the pleural space in addition to surgical changes are thoracotomy. The patient has a right IJ triple-lumen catheter in place. Liver output, the chest tube has put out approximately 20 mL over the past 24 hours and there is no evidence of any air leak. As for the YASMEEN drains,one in the pleural space and drained approximately 450 over the past 24 hours. Whereas the other YASMEEN drains are present in her lap and drained 60 mL and 20 mL over the past 12 hours. She is awake and alert. She is using incentive spirometer. She is afebrile. Hemodynamically stable. She is on no pressors. IV fluids are running at the rate of 40 mL an hour. She is tolerating her diet. Today's evaluation of 04/01/2020, the patient is being seen for a follow-up. The patient is doing essentially the same as yesterday. She is using incentive spirometer and she is pulling approximately 800 mL on her I asked. The patient had a follow-up chest x-ray today that showed no major interval change compared to yesterday's chest x-ray. I do not appreciate any pneumothorax. All of the drains in the tubes are still in place. Note that the patient has a regular posterior chest to talk with of which has been minimal in the order of 10 mL over the past 24 hours and it's still has some minimal amount of intermittent air leak. The YASMEEN drains in the flap is in order of 250 mL in the anterior pain and 125 in the posterior drain over the past 8 hours. His another third drain in the pleural space output of which is still 120 mL over the past 24 hours. Cultures still pending for now. There is gram-negative bacteria. The patient remains on a combination of Levaquin, aztreonam and vancomycin. Surgical wound site is dry clean and intact. The patient has some swelling along the left posterior chest area at the surgical sites. No hematoma collection. She has a congested cough. Unable to bring up much sputum. She is afebrile. Her white cell count has dropped and the count is down to 15. The patient remains on normal saline at the rate of 100 mL an hour. He was having a low urine output in the order of 10-20 mL yesterday and this is improved with the increase the fluid rates. Creatinine is stable for now. Her pain is under adequate control and she is on [place]. She has received cryoablation. She is postop day #2. Cardiac rhythm is sinus. There is no atrial fibrillation. The patient is off all drips and she is utilizing Coreg for rate control. The patient is seen today 04/02/2020 in follow-up in the intensive care unit. She is currently sitting up in bed. Awake and alert in no acute distress. She is maintaining good O2 saturations in the 90s on room air now. 0.9 normal sitting in 100 ML's per hour. She is postoperative day #3 of a left thoracotomy with deep decortication and muscle flap. Computed tomography scan of the chest yesterday revealed postsurgical changes of the left lung. 2 left-sided chest tubes in pleural spaces containing a small amount of residual fluid. There is a chest wall herniation causing increased opacity in the left midlung at the third to fourth intercostal space. Note is made of moderate to large sided organizing hematoma in the posterior lateral left thorax thoracic chest wall and subcutaneous tissue. Today's chest x-ray reveals chest tubes in place. Extensive pleural parenchymal opacities persist throughout the left hemithorax. A loculated component along the lateral mid lung may be slightly decreased in size. She is status post 2 units of packed red blood cells this admission. Current hemoglobin 7.8. White count 15.7. Sodium 133. Potassium 4.2. Crea tinine 0.43. She remains on bronchodilators, antibiotics in the form of aztreonam, vancomycin, Levaquin. The patient is seen today 04/03/2020 in follow-up in the intensive care unit. Postoperative day #4. She is awake and alert in no acute distress. Currently sitting up in bed. Maintaining good O2 saturation in the 90s on 2 L/m per nasal cannula. 0.9 normal saline at 30 mL per hour. Chest x-ray shows significant subcutaneous emphysema, rounded opacity within the left peripheral midlung. Improving infiltrates in the left lung field. No evidence of pneumothorax. 2 left-sided catheters remain in place. She is working well with the incentive spirometer. She is status post 2 units of packed red blood cells this admission. Current hemoglobin 7.9. Thoracic fluid cultures revealed no growth. Wound cultures reveal no growth. Pathology findings revealed fibrin debris with acute and chronic inflammation and a few reactive mesothelial elements. Negative for neoplasm. White count 14.2. Sodium 133. Potassium 2.9. Creatinine 0.39. Continues on bronchodilators, aztreonam, Levaquin. Heparin for DVT prophylaxis. Patient is seen today 04/04/2020 in follow-up in the intensive care unit. Postoperative day #5. She is sitting up in a chair at the bedside. Awake and alert in no acute distress. She denies any worsening shortness of breath, cough or congestion. She is maintaining O2 saturation the 90s on room air. 0.9 normal saline at 30 MLS per hour. She did have a brief episode of atrial fibrillation with a rapid ventricular response last night. She's had some epis odes of hypotension. Her Coreg was discontinued and she was started on low-dose metoprolol. Chest x-ray reveals postsurgical changes the left lung ray demonstrated. Improved left sided pleural air collection on the current study and improved left-sided volume loss. Some question of possible left-sided pneumothorax. YASMEEN drain remains to low continuous wall suction. Chest tube was placed to waterseal. White count 16.9. Hemoglobin 8.2. Sodium 133. Potassium 4.0. Creatinine 0.40. She remains on bronchodilators. Working well with the incentive spirometer. Antibiotics in the form of aztreonam and Levaquin. The patient is seen today 04/05/2020 in follow-up in the intensive care unit. Postoperative day #6. She is currently sitting up in a chair at the bedside. Awake and alert in no acute distress. She denies any worsening shortness of breath, cough or congestion. No hemoptysis. Currently maintaining O2 saturations in the 90s on room air. She has a 0.9 normal saline at 10 MLS per hour. Amiodarone drip at 0.5 mg/m. No recent arrhythmias. Currently in normal sinus rhythm. Left pleural chest tube and 2 YASMEEN drains remain in place to continue continuous suction with a continuous air leak and the atrium. Chest x- ray reveals postsurgical changes in the left lung ray demonstrated. Stable small sized left pleural air collection on current study and mild left volume loss along with stable small to moderate size left basilar pleural fluid collection. No new infiltrates seen. She is status post 2 units of packed red blood cells this admission. Current hemoglobin 8.8. Fluid cultures and wound cultures reveal no growth. White count 16.7. Sodium 134. Potassium 3.9. Creatinine 0.41. She remains on bronchodilators, aztreonam and Levaquin. The patient is seen today 04/06/2020 in follow-up in the intensive care unit. She is currently up in a chair at the bedside. Awake and alert in no acute distress. This is postoperative day #7. She is maintaining good O2 saturations in the 90s on room air. She has 0.9 normal saline at 30 MLS per hour. She has YASMEEN drains and a chest tube still in the left chest which are to wall suction. Chest x-ray continues to show stable small sized left sided pleural air collection and current study with chest tubes in place mid left-sided volume loss along with stable small to moderate left-sided pleural fluid. No new in filtrates. Bronchial wash cultures and fluid cultures reveal no growth. White count 16.4. Hemoglobin 8.3. Platelets continue to rise at 903,000. Sodium 133. Potassium 4.1. Creatinine 0.42. She remains on Levaquin and aztreonam. Continued on Eraxis. Heparin for DVT prophylaxis. Patient was reevaluated today on 04/07/2020, remains in the ICU, patient is on room air, O2 saturations 94%, she continues to have a loculated left-sided pneumothorax, patient is being treated for a left bronchopleural fistula. She does not seem to be in any distress, she is hemodynamically stable, continues to have a small air leak from the chest tube, remains on antibiotics in the form of Levaquin, Azactam, and she is on Eraxis. Patient is scheduled to have a PICC line today, and I will likely transfer the patient out of the ICU to a monitor bed on . CBC showed evidence of 17.6 hemoglobin is 8.2. Electrolytes are normal and renal profile is normal. Reevaluated today on 04/08/2020, patient remains in the ICU as an overflow, she is presently on room air with O2 saturation is 95%. Patient continues to have small tiny air leak in the left sided chest tube, she remains on vancomycin and axis and Azactam. Patient is hemodynamically stable, she is in sinus rhythm, she seems to be comfortable, she had a PICC line placed yesterday in the right arm, and the plan is to transfer the patient out of the ICU sometime today. WBC count today is 16.0 hemoglobin is 8.4 electrolytes are normal renal profile is normal. Objective - Vital Signs Vital signs: Vital Signs Temp 98.0 F 04/08/20 08:00 Pulse 71 04/08/20 12:51 Resp 16 04/08/20 08:00 BP 147/71 04/08/20 08:00 Pulse Ox 88 L 04/08/20 08:00 Intake & Output 04/07/20 04/08/20 04/08/20 18:59 06:59 18:59 Intake Total 380 160 230 Output Total 720 1500 1050 Balance -340 -1340 -820 Weight 67.1 kg Intake: IV 380 160 230 Anidulafungin 100 mg In 100 100 Sodium Chloride 0.9% 100 ml @ 84 mls/hr IVPB DAILY [facility] Rx#:[id number] Aztreonam 2 gm In Sodium 100 100 100 Chloride 0.9% 100 ml @ 33 .3 mls/hr IVPB Q8HR [facility] Rx#:[id number] Sodium Chloride 0.9% 1, 180 60 30 000 ml @ 30 mls/hr IV . Q24H [facility] Rx#:[id number] Output: Chest Tube Drainage 20 Chest tube #2 Anterior 20 Urine 700 1500 1050 Other: Voiding Method Bedside Commode Bedside Commode Bedside Commode Diaper Diaper Diaper Incontinent Incontinent External Catheter External Catheter # Voids 1 1 2 ABP, PAP, CO, CI - Last Documented Arterial Blood Pressure 141/53 - Exam GENERAL EXAM: Revealed 69-year-old female in no distress. On room air at present. Head: Atraumatic, normocephalic. HEENT: PERRLA, EOMI, no icterus. CHEST: Left pleural chest tube into YASMEEN drains noted. Continuous air leak present in the chest tube chamber. LUNGS: Equal air entry with bilateral scattered rhonchi more so on the left lung CVS: S1 and S2 normal with no audible murmur, regular rhythm. ABDOMEN: No hepatosplenomegaly, normal bowel sounds, no guarding or rigidity. SPINE: No scoliosis or deformity SKIN: No rashes CENTRAL NERVOUS SYSTEM: No focal deficits, tone is normal in all 4 extremities. EXTREMITIES: There is no peripheral edema. No clubbing, no cyanosis. Peripheral pulses are intact. - Labs CBC & Chem 7: 04/08/20 04:00 04/08/20 04:00 Labs: Abnormal Lab Results - Last 24 Hours (Table) 04/08/20 04/08/20 Range/Units 04:00 04:00 WBC 16.0 H (3.8-10.6) k/uL RBC 3.03 L (3.80-5.40) m/uL Hgb 8.4 L (11.4-16.0) gm/dL Hct 26.8 L (34.0-46.0) % RDW 16.6 H (11.5-15.5) % Plt Count 952 H (150-450) k/uL Sodium 136 L (137-145) mmol/L Carbon Dioxide 31 H (22-30) mmol/L Creatinine 0.47 L (0.52-1.04) mg/dL Glucose 102 H (74-99) mg/dL Microbiology - Last 24 Hours (Table) 04/06/20 22:00 Gram Stain - Preliminary Sputum Sputum Culture - Preliminary Assessment and Plan Assessment: Impression: Status post lobectomy for bronchogenic carcinoma. This was a squamous cell carcinoma and her lobectomy was 03/13/2020. New onset atrial fibrillation, presently well-controlled with oral medication. Moderate COPD FEV1 is 72%. Chronic tobacco dependence syndrome. History of degenerative joint disease. 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 Status post Left posterior lateral thoracotomy, mobilization of latissimus muscle flap, exploratory thoracotomy through the fourth interspace, closure of bronchopleural fistula, decortication of left pleural space and portion of the left lower lobe, cryoablation of intercostal nerves L2 through L6, reinforcement of the bronchopleural fistula closure and modification in the left pleural space with the latissimus dorsi flap. Post operative day #9 Remains on antibiotics in the form of aztreonam and Levaquin, and Eraxis. Recommendation: Continue left pleural chest tube and left YASMEEN pleural tube to low continuous suction. And continue to monitor for air leak. Continue incentive spirometry. Continue bronchodilators. Continue cardiac meds including Lopressor and amiodarone. Continue GI and DVT prophylaxis. Continue antibiotics and antifungalS Increase activity as tolerated. We'll continue to follow. Prognosis remains guarded Time with Patient: Less than 30
--- NOTE | 2020-04-08 23:12 | PN ---
PROGRESS NOTE DATE OF SERVICE: 04/08/2020 REASON FOR FOLLOWUP: Empyema. INTERVAL HISTORY: The patient is currently afebrile. The patient has been moved out of the ICU. The patient is breathing more comfortably. Did mention she did have occasional episodes of cough, but not bringing up any sputum. No nausea, no vomiting, no abdominal pain or diarrhea. PHYSICAL EXAMINATION: Blood pressure 155/72 with a pulse of 73, temperature of 98.4. She is 96% on room air. General description is an elderly female up in the chair in no distress. RESPIRATORY SYSTEM: Unlabored breathing with decreased intensity of breath sounds. No wheeze. HEART: S1, S2. Regular rate and rhythm. ABDOMEN: Soft. No tenderness. LABS/IMAGING: Chest x-ray did show stable left pneumothorax. Chest tube in place. DIAGNOSTIC IMPRESSION AND PLAN: Patient admitted to hospital with left-sided effusion with recent left upper lobectomy for cultures and mild concern for empyema, though culture has been negative. She did have persistent elevated white count. Vancomycin was added yesterday and white count minimally improved. Will repeat a CBC and inflammatory marker tomorrow. Continue vancomycin, Azactam and monitor clinical course closely. MMODL / IJN: [id number] / MTDD
[2020-04-09] MEDS: PANTOPRAZOLE 40 MG TABLET PO SCH (05:52)
--- NOTE | 2020-04-09 06:34 | XR ---
EXAMINATION TYPE: XR chest 1V portable DATE OF EXAM: 04/09/2020 CLINICAL HISTORY: Difficulty breathing progress study. Post bronchopleural fistula repair. TECHNIQUE: Single AP portable upright view of the chest is obtained. COMPARISON: Chest x-ray from one day earlier and older studies. FINDINGS: Stable right sided PICC line. There are several left-sided chest tubes redemonstrated. Improved left-sided pleural air collection laterally on the current study. Left midlung opacity remai ns present. Overlying subcutaneous emphysema redemonstrated. Left Axillary surgical clips redemonstra dale. Stable Small to moderate size left basilar pleural fluid collection near the inferior pleural dr ainage catheter with adjacent atelectasis and/or infiltrate. Underlying mild underlying emphysematous change. Right lung remains clear. Stable slight left-sided volume loss. Cardiac silhouette size stab le and upper limits of normal. Osseous structures remain intact. IMPRESSION: Postsurgical changes left lung redemonstrated. Improved left-sided pleural air collection on current study with chest tubes in place and stable mild left-sided volume loss along with stable small to moderate-sized left basilar pleural fluid collection and adjacent atelectasis and/or infiltr ate. No new infiltrate is seen.
[2020-04-09 08:09] LABS: Anisocytosis Slight; HCT 28.1 % (34.0-46.0); HGB 8.3 gm/dL (11.4-16.0); Hypochromasia Moderate; MCH 26.5 pg (25.0-35.0); MCHC 29.4 g/dL (31.0-37.0); MCV 90.1 fL (80.0-100.0); Mean Platelet Volume 6.3; Platelet Count 998 k/uL (150-450); RBC 3.12 m/uL (3.80-5.40); WBC 15.6 k/uL (3.8-10.6)
[2020-04-09] MEDS: CALCIUM CARB-VIT D 500 MG-5 MCG TAB PO SCH (08:19)
[2020-04-09] MEDS: ZINC SULFATE 220 MG CAP PO SCH (08:19)
[2020-04-09] MEDS: METOPROLOL TARTRATE 25 MG TAB PO SCH ×2 (08:19→19:58)
[2020-04-09] MEDS: guaiFENesin 600 MG TABLET.ER PO SCH ×2 (08:19→18:34)
[2020-04-09] MEDS: AMIODARONE 200 MG TAB PO SCH ×2 (08:19→19:57)
[2020-04-09] MEDS: LETROZOLE 2.5 MG TAB PO SCH (08:20)
[2020-04-09] MEDS: ANIDULAFUNGIN 100 MG in SODIUM CHLORIDE 0.9% 100 ML IVPB SCH (08:20)
[2020-04-09] MEDS: MAGNESIUM OXIDE 400 MG TAB PO SCH (08:20)
[2020-04-09 08:22] LABS: African American GFR (CKD) >90 (>60 ml/min/1.73 sqM); Anion Gap 3 mmol/L; Blood Urea Nitrogen 15 mg/dL (7-17); Calcium 8.9 mg/dL (8.4-10.2); Carbon Dioxide 29 mmol/L (22-30); Chloride 105 mmol/L (98-107); Glucose 95 mg/dL (74-99); Non-African American GFR(CKD) >90 (>60 ml/min/1.73 sqM); Potassium 4.6 mmol/L (3.5-5.1); Sodium 137 mmol/L (137-145)
--- NOTE | 2020-04-09 08:29 | P.PN ---
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 Previous medical history of squamous cell carcinoma of the left lung status post robotically assisted left upper lobectomy with mediastinal lymph node dissection and repair of left main bronchus on 03/13/2020 with pathology consistent with T2b, N0, M0, breast cancer status post left mastectomy in 2006 with chemo, previous tobacco dependence with cessation in February 2020, moderate chronic restrictive pulmonary disease with a recent FEV1 value 72% of predicted value, hypertension, left carotid stenosis status post left carotid endarterectomy in 2019, degenerative joint disease. POD #10 Left posterior lateral thoracotomy, mobilization of latissimus muscle flap, exploratory thoracotomy through the fourth intercostal space, closure of bronchopleural fistula, decortication of left pleural space and portion of the l eft lower lobe, cryoablation of intercostal nerves L2 through L6, reinforcement of the bronchopleural fistula closure and modification in the left pleural space with the latissimus dorsi flap. POD #11 Fiberoptic bronchoscopy, left chest tube placement. Postoperative acute blood loss anemia, expected, dilutional. The patient is currently sitting up in a recliner in no acute distress on the cardiac stepdown unit. She states pain is controlled on current pain medication regimen, denies shortness of breath. States she did get sleep last night. Remains in normal sinus rhythm, currently on oral amiodarone and lopressor. Left pleural chest tube continues to water seal with no air leak this morning, 2 YASMEEN drains continue to suction. She has ambulated in the hallway several times without difficulty with a walker and minimal assistance for holding her tubes and wires. Aztreonam, Eraxis, Vanco continue per infectious disease, remains afebrile, sputum culture sent 04/06/20, pending, preliminary gram stain without microbial growth. Daughter continues to be updated via phone with all questions answered to the best of my ability. Objective - Vital Signs Vital signs: Vital Signs Temp 98.1 F 04/09/20 04:00 Pulse 72 04/09/20 04:00 Resp 18 04/09/20 04:00 BP 135/75 04/09/20 04:00 Pulse Ox 94 L 04/09/20 04:00 Intake & Output 04/08/20 04/09/2021 18:59 06:59 18:59 Intake Total 435 510 Output Total 1430 530 Balance -995 -20 Intake: IV 310 140 Anidulafungin 100 mg In 100 Sodium Chloride 0.9% 100 ml @ 84 mls/hr IVPB DAILY [facility] Rx#:[id number] Aztreonam 2 gm In Sodium 100 100 Chloride 0.9% 100 ml @ 33 .3 mls/hr IVPB Q8HR [facility] Rx#:[id number] Sodium Chloride 0.9% 1, 110 40 000 ml @ 20 mls/hr IV . Q24H [facility] Rx#:[id number] Intake, IV Titration 250 Amount Vancomycin 1,250 mg In 250 Sodium Chloride 0.9% 250 ml @ 125 mls/hr IVPB Q12H [facility] Rx#:[id number] Oral 125 120 Output: Chest Tube Drainage 30 30 Chest tube #2 Anterior 30 20 YASMEEN drain labeled #1 0 5 Posterior YASMEEN drain labeled #2 0 5 Anterior Urine 1400 500 Other: Voiding Method Bedside Commode Bedside Commode Diaper Diaper # Voids 2 2 # Bowel Movements 1 ABP, PAP, CO, CI - Last Documented Arterial Blood Pressure 141/53 - Constitutional General appearance: Present: cooperative, no acute distress - Respiratory Details: Lung sounds diminished bilaterally. Respirations even, non-labored. Currently on room air with oxygen saturation 94%. Able to achieve 1000 mL on her incentive spirometer, strong cough. Left pleural chest tube present to water seal, 50 mL serosanguinous output in the last 24 hours, no air leak present. Two JPs present to continuous wall suction, 30 mL sanguinous drainage in the last 24 hours. - Cardiovascular Details: S1/S2 present, regular rate and rhythm, sinus rhythm on telemetry with heart rate in the 70s. No edema present. No calf pain or tenderness present. Antiembolism stockings, SCDs present. Right PICC line present. - Gastrointestinal Gastrointestinal Comment(s): Abdomen soft, non-distended, non-tender. Active bowel sounds present in all 4 quadrants. Tolerating oral intake. Positive bowel movement 04/08/20 - Genitourinary Genitourinary Comment(s): Continues to void - Integumentary Integumentary Comment(s): Skin is warm and dry. Left lateral thoracotomy incision clean, dry and approximated. No drainage or redness is present. Mininmal residual swelling to her left posterior chest wall. Soft and nontender to palpate. - Neurologic Neurologic: Present: CNII-XII intact - Musculoskeletal Musculoskeletal: Present: gait normal, strength equal bilaterally - Psychiatric Psychiatric: Present: A&O x's 3, appropriate affect, intact judgment & insight - Allied health notes Allied health notes reviewed: nursing - Labs CBC & Chem 7: 04/09/20 07:08 04/09/20 07:08 - Imaging and Cardiology Chest x-ray: report reviewed, image reviewed Assessment and Plan Assessment: 1. Empyema left chest with bronchopleural fistula status post fiberoptic bron choscopy with left chest tube placement, left posterior lateral thoracotomy, mobilization of latissimus muscle flap, exploratory thoracotomy through the fourth intercostal space, closure of bronchopleural fistula, decortication of left pleural space and portion of the left lower lobe, cryoablation of intercostal nerves L2 through L6, reinforcement of the bronchopleural fistula closure and modification in the left pleural space with the latissimus dorsi flap 2. Leukocytosis, secondary to empyema, continued, all cultures negative to date 3. New onset atrial fibrillation with RVR, remains in NSR 4. Squamous cell carcinoma of the left lung status post robotically assisted left upper lobectomy with mediastinal lymph node dissection and repair of left main bronchus on 03/13/2020 with pathology consistent with T2b, N0, M0 5. Breast cancer status post left mastectomy in 2006 with chemo 6. Previous tobacco dependence with cessation in February 2020 7. Moderate chronic restrictive pulmonary disease with a recent FEV1 value 72% of predicted value 8. Hypertension 9. Left carotid stenosis status post left carotid endarterectomy in 2018 10. Degenerative joint disease 11. Postoperative acute blood loss anemia, expected, dilutional Plan: 1. Continue left pleural chest tube placed to water seal. Place YASMEEN drains to bulb suction. Record strict inaccurate I's and O's. 2. Encourage use of her incentive spirometry 10 times every hour while awake. 3. Bronchodilator management per pulmonology 4. Continue lopressor, amio. No anticoagulation at this time 5. Continue to monitor daily labs and chest x-rays. 6. GI and DVT prophylaxis. 7. Continue to reinforce the importance of continued smoking cessation. 8. Antibiotic management per infectious disease recommendations, currently on aztreonam (day 11), eraxis (day 4), vanco (day 3) for coverage. Remains afebrile. Bronchial washings, cultures negative. Sputum culture 04/06/20 preliminary gram stain without growth 9. Increase activity as tolerated, out of bed for all meals, ambulate as tolerated. Physical and occupational therapy following. 10. Pain control per current medication regimen 11. More recommendations to follow based on patient's clinical course. Time with Patient: Greater than 30
[2020-04-09] MEDS: HEPARIN SODIUM,PORCINE 5,000 UNIT/ML 1 ML VIAL SQ SCH ×3 (09:04→23:36)
[2020-04-09] MEDS: AZTREONAM 2 GM in SODIUM CHLORIDE 0.9% 100 ML IVPB SCH ×3 (09:06→23:54)
[2020-04-09] MEDS ORDERED: VANCOMYCIN TROUGH DUE 1 EACH MISC MISCELLANE ONE ×2 (10:00→22:00)
[2020-04-09] MEDS: IPRATROPIUM-ALBUTEROL 3 ML NEB INHALATION SCH ×3 (10:24→20:45)
[2020-04-09] MEDS: ACETYLCYSTEINE 800 MG/4 ML VIAL INHALATION SCH ×4 (10:24→20:45)
[2020-04-09] MEDS: VANCOMYCIN 1,250 MG in SODIUM CHLORIDE 0.9% 250 ML IVPB SCH ×2 (11:29→23:36)
--- NOTE | 2020-04-09 13:09 | P.PN ---
Subjective Progress Note Date: 04/09/20 Principal diagnosis: Large left pneumothorax, new onset atrial fibrillation On 03/31/2020 the patient is being seen for a follow-up. 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 The patient was taken to the operating room approximately 2 weeks ago and the patient underwent a robotic-assisted left upper lobe resection. Postop, the patient was discharged home to be readmitted back to the hospital rule out empyema and air-fluid levels in the left chest along with a new onset atrial fibrillation and elevated white cell count. 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 A lesser the chest tube was placed at a time and drained turbid fluid. Gram stain was positive for gram-negative rods. Subsequently, the patient was taken back to the operating room and the patient underwent a thoracotomy and closure of a bronco pleural fistula with a muscle flap. The patient underwent a left posterior lateral thoracotomy, mobilization of the latissimus muscle flap, exploratory thoracotomy through the fourth int ercostal space, closure of the bronchopleural fistula and decortication of the left pleural space and portion of the left lower lobe and cryo-ablation of the intercostal nerves II through through L6 was done and reinforcement of the fistula was done and modification of the left pleural space with latissimus dorsi flap. The patient intraoperatively was found to have an empyema of the left chest as mentioned. Postop, the patient was extubated and the patient was brought back to the intensive care unit for further monitoring. She was placed on oxygen at 3 L about 2 by nasal cannula. There was a left-sided chest tube in place with a Pleur-evac and there were also 2 YASMEEN drains within the pleural space. The patient was being covered with broad-spectrum antibiotics including a combination of Levaquin, aztreonam and vancomycin pending further cultures from the pleural space. The patient was on tramadol 50 mg every 6 hours when necessary basis for pain control. The patient is also on [place] 53 25 one tablet every 4-6 hours on a when necessary basis for pain control. The patient recovered from the atrial fibrillation and the patient is currently in sinus rhythm. Cardizem drip has been discontinued and the patient was placed on Coreg 6.25 mg by mouth twice a day. She is on heparin subcu for DVT prophylaxis. IV fluids running at 40 mL an hour of normal saline. Chest x-ray revealed a pleural air fluid levels/pneumothorax and the left upper chest area measuring 2.1 cm in size. A small left-sided pleural effusion/consolidation of the left lung base. There were 2 drains within the pleural space in addition to surgical changes are thoracotomy. The patient has a right IJ triple-lumen catheter in place. Liver output, the chest tube has put out approximately 20 mL over the p ast 24 hours and there is no evidence of any air leak. As for the YASMEEN drains,one in the pleural space and drained approximately 450 over the past 24 hours. Whereas the other YASMEEN drains are present in her lap and drained 60 mL and 20 mL over the past 12 hours. She is awake and alert. She is using incentive spirometer. She is afebrile. Hemodynamically stable. She is on no pressors. IV fluids are running at the rate of 40 mL an hour. She is tolerating her diet. Today's evaluation of 04/01/2020, the patient is being seen for a follow-up. The patient is doing essentially the same as yesterday. She is using incentive spirometer and she is pulling approximately 800 mL on her I asked. The patient had a follow-up chest x-ray today that showed no major interval change compared to yesterday's chest x-ray. I do not appreciate any pneumothorax. All of the drains in the tubes are still in place. Note that the patient has a regular posterior chest to talk with of which has been minimal in the order of 10 mL over the past 24 hours and it's still has some minimal amount of intermittent air leak. The YASMEEN drains in the flap is in order of 250 mL in the anterior pain and 125 in the posterior drain over the past 8 hours. His another third drain in the pleural space output of which is still 120 mL over the past 24 hours. Cultures still pending for now. There is gram-negative bacteria. The patient remains on a combination of Levaquin, aztreonam and vancomycin. Surgical wound site is dry clean and intact. The patient has some swelling along the left posterior chest area at the surgical sites. No hematoma collection. She has a congested cough. Unable to bring up much sputum. She is afebrile. Her white cell count has dropped and the count is down to 15. The patient remains on normal saline at the rate of 100 mL an hour. He was having a low urine output in the order of 10-20 mL yesterday and this is improved with the increase the fluid rates. Creatinine is stable for now. Her pain is under adequate control and she is on [place]. She has received cryoablation. She is postop day #2. Cardiac rhythm is sinus. There is no atrial fibrillation. The patient is off all drips and she is utilizing Coreg for rate control. The patient is seen today 04/02/2020 in follow-up in the intensive care unit. She is currently sitting up in bed. Awake and alert in no acute distress. She is maintaining good O2 saturations in the 90s on room air now. 0.9 normal sitting in 100 ML's per hour. She is postoperative day #3 of a left thoracotomy with deep decortication and muscle flap. Computed tomography scan of the chest yesterday revealed postsurgical changes of the left lung. 2 left-sided chest tubes in pleural spaces containing a small amount of residual fluid. There is a chest wall herniation causing increased opacity in the left midlung at the third to fourth intercostal space. Note is made of moderate to large sided organizing hematoma in the posterior lateral left thorax thoracic chest wall and subcutaneous tissue. Today's chest x-ray reveals chest tubes in place. Extensive pleural parenchymal opacities persist throughout the left hemithorax. A loculated component along the lateral mid lung may be slightly decreased in size. She is status post 2 units of packed red blood cells this admission. Current hemoglobin 7.8. White count 15.7. Sodium 133. Potassium 4.2. Creatinine 0.43. She remains on bronchodilators, antibiotics in the form of aztreonam, vancomycin, Levaquin. The patient is seen today 04/03/2020 in follow-up in the intensive care unit. Postoperative day #4. She is awake and alert in no acute distress. Currently sitting up in bed. Maintaining good O2 saturation in the 90s on 2 L/m per nasal cannula. 0.9 normal saline at 30 mL per hour. Chest x-ray shows significant subcutaneous emphysema, rounded opacity within the left peripheral midlung. Improving infiltrates in the left lung field. No evidence of pneumothorax. 2 left-sided catheters remain in place. She is working well with the incentive spirometer. She is status post 2 units of packed red blood cells this admission. Current hemoglobin 7.9. Thoracic fluid cultures revealed no growth. Wound cultures reveal no growth. Pathology findings revealed fibrin debris with acute and chronic inflammation and a few reactive mesothelial elements. Negative for neoplasm. White count 14.2. Sodium 133. Potassium 2.9. Creatinine 0.39. Continues on bronchodilators, aztreonam, Levaquin. Heparin for DVT prophylaxis. Patient is seen today 04/04/2020 in follow-up in the intensive care unit. Postoperative day #5. She is sitting up in a chair at the bedside. Awake and alert in no acute distress. She denies any worsening shortness of breath, cough or congestion. She is maintaining O2 saturation the 90s on room air. 0.9 normal saline at 30 MLS per hour. She did have a brief episode of atrial fibrillation with a rapid ventricular response last night. She's had some episodes of hypotension. Her Coreg was discontinued and she was started on low- dose metoprolol. Chest x-ray reveals postsurgical changes the left lung ray demonstrated. Improved left sided pleural air collection on the current study and improved left-sided volume loss. Some question of possible left-sided pneumothorax. YASMEEN drain remains to low continuous wall suction. Chest tube was placed to waterseal. White count 16.9. Hemoglobin 8.2. Sodium 133. Potassium 4.0. Creatinine 0.40. She remains on bronchodilators. Working well with the incentive spirometer. Antibiotics in the form of aztreonam and Levaquin. The patient is seen today 04/05/2020 in follow-up in the intensive care unit. Postoperative day #6. She is currently sitting up in a chair at the bedside. Awake and alert in no acute distress. She denies any worsening shortness of breath, cough or congestion. No hemoptysis. Currently maintaining O2 saturations in the 90s on room air. She has a 0.9 normal saline at 10 MLS per hour. Amiodarone drip at 0.5 mg/m. No recent arrhythmias. Currently in normal sinus rhythm. Left pleural chest tube and 2 YASMEEN drains remain in place to continue continuous suction with a continuous air leak and the atrium. Chest x- ray reveals postsurgical changes in the left lung ray demonstrated. Stable small sized left pleural air collection on current study and mild left volume loss along with stable small to moderate size left basilar pleural fluid col lection. No new infiltrates seen. She is status post 2 units of packed red blood cells this admission. Current hemoglobin 8.8. Fluid cultures and wound cultures reveal no growth. White count 16.7. Sodium 134. Potassium 3.9. Creatinine 0.41. She remains on bronchodilators, aztreonam and Levaquin. The patient is seen today 04/06/2020 in follow-up in the intensive care unit. She is currently up in a chair at the bedside. Awake and alert in no acute distress. This is postoperative day #7. She is maintaining good O2 saturations in the 90s on room air. She has 0.9 normal saline at 30 MLS per hour. She has YASMEEN drains and a chest tube still in the left chest which are to wall suction. Chest x-ray continues to show stable small sized left sided pleural air collection and current study with chest tubes in place mid left-sided volume loss along with stable small to moderate left-sided pleural fluid. No new infiltrates. Bronchial wash cultures and fluid cultures reveal no growth. White count 16.4. Hemoglobin 8.3. Platelets continue to rise at 903,000. Sodium 133. Potassium 4.1. Creatinine 0.42. She remains on Levaquin and aztreonam. Continued on Eraxis. Heparin for DVT prophylaxis. The patient is seen today 04/09/2020 in follow-up on the selective care unit. She is currently sitting up in a chair at the bedside. Awake and alert in no acute distress. Separate day #10. YASMEEN drains a left-sided chest tube remains in place. Currently to waterseal, off suction. She is maintaining good O2 saturations in the 90s on room air. Pulling approximately 1 L on her incentive spirometer. Chest x-ray revealed evidence of improved left-sided pleural air collection with stable mild left-sided volume loss along with stable small to moderate sized left basilar pleural fluid collection and adjacent atelectasis and/or infiltrate. No new infiltrate is seen. Remains on vancomycin, aztreonam and Levaquin. Remains on Eraxis. Heparin for DVT prophylaxis. Objective - Vital Signs Vital signs: Vital Signs Temp 98 F 04/09/20 11:53 Pulse 69 04/09/20 11:53 Resp 18 04/09/20 11:53 BP 125/88 04/09/20 11:53 Pulse Ox 98 04/09/20 11:53 Intake & Output 04/08/20 04/09/20 04/09/20 18:59 06:59 18:59 Intake Total 435 510 Output Total 1430 530 10 Balance -995 -20 -10 Intake: IV 310 140 Anidulafungin 100 mg In 100 Sodium Chloride 0.9% 100 ml @ 84 mls/hr IVPB DAILY [facility] Rx#:[id number] Aztreonam 2 gm In Sodium 100 100 Chloride 0.9% 100 ml @ 33 .3 mls/hr IVPB Q8HR [facility] Rx#:[id number] Sodium Chloride 0.9% 1, 110 40 000 ml @ 20 mls/hr IV . Q24H [facility] Rx#:[id number] Intake, IV Titration 250 Amount Vancomycin 1,250 mg In 250 Sodium Chloride 0.9% 250 ml @ 125 mls/hr IVPB Q12H [facility] Rx#:[id number] Oral 125 120 Output: Chest Tube Drainage 30 30 10 Chest tube #2 Anterior 30 20 10 YASMEEN drain labeled #1 0 5 0 Posterior YASMEEN drain labeled #2 0 5 0 Anterior Urine 1400 500 Other: Voiding Method Bedside Commode Bedside Commode Toilet Diaper Diaper # Voids 2 2 1 # Bowel Movements 1 ABP, PAP, CO, CI - Last Documented Arterial Blood Pressure 141/53 - Exam GENERAL EXAM: Alert, pleasant 69-year-old female patient, currently up in a chair at the bedside, on room air, fairly comfortable in no apparent distress. HEAD: Normocephalic. EYES: Normal reaction of pupils, equal size. NOSE: Clear with pink turbinates. THROAT: No erythema or exudates. NECK: No masses, no JVD. CHEST: Left-sided chest tube and YASMEEN drains x [address] waterseal. LUNGS: Equal air entry with bilateral scattered rhonchi more so on the left lung CVS: S1 and S2 normal with no audible murmur, regular rhythm. ABDOMEN: No hepatosplenomegaly, normal bowel sounds, no guarding or rigidity. SPINE: No scoliosis or deformity SKIN: No rashes CENTRAL NERVOUS SYSTEM: No focal deficits, tone is normal in all 4 extremities. EXTREMITIES: There is no peripheral edema. No clubbing, no cyanosis. Peripheral pulses are intact. 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 Status post Left posterior lateral thoracotomy, mobilization of latissimus muscle flap, exploratory thoracotomy through the fourth interspace, closure of bronchopleural fistula, decortication of left pleural space and portion of the left lower lobe, cryoablation of intercostal nerves L2 through L6, reinforcement of the bronchopleural fistula closure and modification in the left pleural space with the latissimus dorsi flap. Post operative day #10. Remains on antibiotics in the form of vancomycin, aztreonam and Levaquin Chest x-ray from today 04/09/2020 reveals postoperative changes in the left lung redemonstrated. Improved left sided pleural air collection on current study with chest tubes in place and stable mild left-sided volume loss along with sta ble small to moderate left-sided pleural effusion and adjacent atelectasis/infiltrate. No new infiltrates seen. Left-sided chest tube and 2 YASMEEN drains remain in place. 2 Bronchopleural fistula, left upper lobe apical stump status post fiberoptic bronchoscopy, left chest tube placement. Postoperative day #10 3 Squamous cell carcinoma of the left lung, status post robotically assisted left upper lobectomy with mediastinal lymph node dissection on 03/13/2020. 4 New-onset atrial fibrillation requiring Cardizem drip, currently in sinus rhythm 5 Moderate to severe chronic obstructive pulmonary disease with FEV1 value 72% of predicted 6 History of breast cancer status post left mastectomy 7 Carotid artery disease status post left carotid endarterectomy 8 History of chronic tobacco dependence 9 History of degenerative joint disease Plan: The patient was seen and evaluated by Dr. Shipman Chest x-ray and labs reviewed Continue antibiotics and bronchodilators Working well with the incentive spirometer Increase her activity as tolerated We will continue to follow and make further recommendations based on her clinical status I, the cosigning physician, performed a history & physical examination of the patient. Lungs sounds with bilateral scattered rhonchi left greater than right. Maintaining good O2 saturations in the 90s on room air. I discussed the assessment and plan of care with my nurse practitioner, Arminda Owen. I attest to the above note as dictated by her.
--- NOTE | 2020-04-09 13:31 | P.PN ---
Subjective Progress Note Date: 04/09/20 HISTORY OF PRESENT ILLNESS 69-year-old female one of Dr. 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 Patient also survival of rest cancer post left mastectomy in 2010 post chemotherapy also she is known to have history of carotid stenosis post left carotid endarterectomy in 2018 previous history of tobacco use she quit in February this year continue to have moderate COPD with FEV1 of 72 percentile history of hypertension hyperlipidemia. Patient left the hospital on March 17 after surgery was seen pulmonary and cardiothoracic surgery on regular basis she returned to the emergency department shortly after midnight today because of worsening dyspnea and shortness of breath with significant tachycardia according to patient she become more symptomatic with rapid ventricular response on and off become more symptomatic causing worsening shortness of breath. Was seen and evaluated demurs department her white blood cell was 18.5 hemoglobin 10.5 hematocrit 32.9 d-dimer was 2.48 patient COVID 19 testing was negative she found to be in A. fib with RVR pulse 153 beats per minutes cardiology were called along with cardiothoracic patient chest x-ray showed pleural effusion and pneumothorax of the left side. She was started on Cardizem drip brought the pulse rate down no anticoagulation was started this point patient was on Plavix since her carotid surgery and no previous history of A. fib her pulse rate used to be well controlled on Coreg 6.25 mg twice a day in the past. Patient will be going to the OR by cardiothoracic and she will have more repair along with chest tube as well. 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 Patient will be back to the ICU after surgery. 03/31: Patient evaluated in the ICU this morning, sitting up in the bedside chair, in no acute distress. She is postop day #1 status post left posterior lateral thoracotomy, closure of the bronchopleural fistula, and cryoablation of the intercostal nerves. Patient still has 2 left-sided chest tubes in place, she continues on Levaquin, vancomycin, and Aztreonam. Cultures are still pending, infectious disease on consult. Repeat chest x-ray shows residual left pneumothorax and left perihilar consolidation. Vital signs are stable, she is afebrile 98.0, heart rate is 90, respiratory 23, temperature 128/57, she's 95% on 3 L via nasal cannula. 04/01: Patient evaluated in the ICU, sitting up in the bedside chair. Nurse states she went to stand patient up to get her out of bed and she had a syncople episode. She was noted to be hypotensive 63/37 and tachycardic with a heart r ate of 111. Stat CBC and repeat chest x-ray ordered, patient placed back in bed blood, pressure did come up to 99/47, heart rate 90. Hemoglobin 7.7, platelets 729, sodium 130, creatinine 0.51, BUN 16. Left pleural chest tube in place, left pleural YASMEEN drain in place and continues to drain serosanguineous drainage, left lateral chest YASMEEN drains [address] with bulb suction. Repeat chest x-ray bentley wed some improvement of aeration throughout the remaining left lung post lobectomy, pneumothorax remains. 04/02: Patient remains in the ICU. Patient had chest CT yesterday which showed chest wall herniation causing increase opacity in the left midlung at the third through fourth intercostal space. Large size hematoma in the posterior lateral lower thoracic chest and subcutaneous tissue. Patient's hemoglobin dropped to 6.1 she did receive 2 units of packed red blood cells, hemoglobin went up to 8.4 after the transfusion and dropped to 7.8 this morning. Clinically patient looks much better today, reports she is feeling much better as well. She is off supplemental oxygen and currently 94%, continue to use incentive spirometer, chest tubes remain in place. 04/03: Patient examined in the ICU. Patient was up walking in the [place] yesterday and is doing well. Patient has left pleural chest tube and 2 YASMEEN drains to continuous suction with air leaks. She continues on Levaquin, vancomycin and Aztreonam per infectious disease. Hemoglobin stable, 7.9 this morning, WBC 14.2, sodium 133, BUN 8, creatinine 0.39. She remains afebrile, vital signs are stable she is 97% on 2 L via nasal cannula. Patient did have multiple episodes of paroxysmal atrial fibrillation last night, cardiology is on consult. Cardiology did increase her dose of Coreg to 12.5 twice a day, currently she is rate controlled and converted back to normal sinus rhythm. 04/04 2020: Patient remain in the ICU, still have chest tube in, there is a quite possibility might have pneumothorax and slight leak around the chest tube area a chest x-ray still pending at this point, patient still seen pulmonary and cardiothoracic might need another chest tube or adjustment of her current chest tube area. He'll otherwise pain is under control currently patient is hemodynamically stable. 04/05 2020 patient examined sitting comfortably in the chair. Complains of epigastric tenderness and burning in her chest. The patient denies any chest pain, shortness of breath dizziness or lightheadedness. She does have pain around her chest tube on the left but denies any cough or breathing difficulty. Patient evaluated by neurology with no plan to adjust the chest tubes. Chest x- ray was repeated with stable left pleural area collection and mild lung volume loss along with small to moderate left pleural fluid collection. Vitals are stable temperature of 98.1 pulse 77 and respiratory rate 16 blood pressure 139/72 oxygen saturation 96% on room air. Patient had persistent leukocytosis of 16.7 hemoglobin stable at 8.8 Creatinine 0.41 glucose is stable at 124. Patient stable on bronchodilators and aztreonam and Levaquin. For culture and wound cultures are negative. 04/06 patient examined sitting comfortably in the chair. Denies any epigastric tenderness or shortness of breath. Patient denies any chest pain, dizziness lightheadedness, fatigue. She denies any change in bowel habits or diarrhea or constipation. Patient does have some pain around the chest tube which is controlled with medication. Left pleural chest tube and 2 YASMEEN drains continued to suction with continuous air leak present and chest tube. Vitals are stable with a pulse of 93 respiratory rate 19 and blood pressure 136/87 oxygen saturation 92% on room air. On evaluation the patient's blood pressure today continues to have leukocytosis of 16.4 hemoglobin 8.3 platelet 903. Sodium remains at 133 creatinine 0.4. Continue amiodarone at 400 twice a day. Patient continues to remain in normal sinus rhythm. Patient continues to be on azt reonam and Levaquin. anidulafungin was added due to persistent leukocytosis. 04/07: Patient is seen today in the intensive care unit. 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 She remains with a chest tube in place as well as 2 YASMEEN drains. A PICC line has been ordered for today for IV antimicrobials. Patient is currently on Eraxis, Levaquin and Azactam. Patient's pulse ox see 92% on room air. She is reaching 750 on incentive spirometry. She has been afebrile, heart rate in the 70s, blood pressure 115/64. monitor and storage bin tender is a sinus rhythm. Repeat blood work reveals WBC 17.6, hemoglobin 8.2, platelet count 889. Sodium 134 otherwise electrolytes are n ormal, creatinine 0.5. Blood sugar 104. Repeat chest x-ray reveals continued small to moderate left effusion and possible loculated pneumothorax on the left. Apical component is not as well as seen and estimated at 6 mm versus 1.5 cm earlier today. 2 pleural drains remain in the left side. Patient is multiple consultations in place including cardiothoracic surgery, ovary medicine, infectious disease. Cardiology is following on an as-needed basis. Discharge plan is tentatively home with VNA and IV antibiotics through [facility]. 04/08: Patient remains in intensive care unit and waiting for a bed on the cardiac stepdown unit. She states her breathing is better today. Patient is seen sitting in a recliner and appears to be comfortable. chest tube 1, YASMEEN drain 2. Pulse ox 95% on room air, on recheck was 88 on room air. She has been afebrile, heart rate 80, blood pressure 147/71. Patient had a midline placed yesterday. Hemoglobin 8.4, WBC 16, platelet count 952. Sodium 136, potassium 4.4, chloride 103, CO2 31, BUN 14 and creatinine 0.47. Repeat chest x-ray reveals stable left pneumothorax. Left chest tubes in place. 04/09: The patient is seen today on the cardiac stepdown unit. Patient states that her breathing is much improved since admission. She states her appetite is okay and she is waiting for oatmeal which is been ordered. She complains of a cough with occasional production after updraft treatments. She has been afebrile, heart rate 72, blood pressure 125/88, pulse ox 98% on room air. WBC 15.6, hemoglobin 8.3, platelet count 998. Electrolytes normal. Creatinine 0.51. Repeat chest x-ray reveals improved left-sided pleural air collection with stable small to moderate size left basilar pleural fluid collection with adjacent atelectasis and/or infiltrate. Patient remains on vancomycin, Azactam, and Eraxis. REVIEW OF SYSTEMS Constitutional: Denies chills, Denies fever, Denies lethargy, Denies malaise, Denies poor appetite, reports weakness, Denies weight loss Eyes: denies decreased vision, denies pain Cardiovascular: Endorses chest pain, endorses decreased exercise tolerance, endorses edema, Denies high blood pressure, Denies irregular heart beat, Denies palpitations, Denies paroxysmal nocturnal dyspnea, Denies rapid heart beat, Denies shortness of breath Respiratory: Denies congestion, Denies cough, Denies cough with sputum, Denies dyspnea, Denies home oxygen, Denies wheezing Gastrointestinal: Denies abdominal pain, Denies change in bowel habits, Denies coffee ground emesis, Denies early satiety, Denies excessive gas, Denies heartburn, Denies hematemesis, Denies hematochezia, Denies loss of appetite, Denies nausea, Denies vomiting Genitourinary: Denies dysuria, Denies flank pain, Denies kidney stones, Denies menorrhagia, Denies urgency, Denies urinary frequency Musculoskeletal: Denies gait dysfunction, Denies limitation of motion, Denies morning stiffness, Denies muscle cramps Integumentary: Denies rash, Denies wounds, Denies brittle nails, Denies change in hair/nails, Denies darkening of skin Neurological: Denies balance difficulties, Denies change in speech, Denies double vision, Denies gait dysfunction, Denies loss of vision, Denies motor disturbance, Denies numbness, Denies paralysis, Denies paresthesias, Denies seizures PHYSICAL EXAMINATION Gen: This is a 69-year-old female. Patient is resting in chair and appears to be comfortable and in no acute distress. HEENT: Supple, no lymphadenopathy, no thyroid enlargement, no carotid bruits. Lungs: Decreased breath sounds with scattered rhonchi Chest Wall: Decrease expansion with deep inspiration scar from her incision on the left side looks fine still have slight soreness pain and discomfort and tenderness in the left side of the rib cage left chest tube in place. Heart: Regular rate and rhythm, S1, S2 normal, no murmur, rub or gallop. Back: Symmetric, no curvature, ROM normal, no CVA tenderness. Abdomen: Soft, non-tender, bowel sounds active all four quadrants, no masses, no organomegaly. Extremities: Extremities normal, atraumatic, no cyanosis or edema. Pulses: 2+ and symmetric. Skin: Skin color, texture, tugor normal, no rashes or lesions. Neurologic: Alert oriented x3 cranial nerves II through XII intact, no motor deficit. ASSESSMENT AND PLAN 1. New onset of A. fib with RVR, paroxysmal atrial fibrillation. Patient is currently in sinus rhythm. Consult with cardiology appreciated. Patient is currently on Amiodarone 400 twice a day and metoprolol 25 twice a day. We'll hold anticoagulation until cleared by CTS. 2. Empyema left chest with bronchopleural fistula status post bronchoscopy with left chest tube placement with post exploratory thoracotomy with cryoablation of the intercostal nerve of L2 through 6. Reinforcement of bronchopleural fistula closure and modification of the left pleural space was done. Continue left pleural chest tube and left YASMEEN x2. Monitor for air leak. Continue incentive spirometer continue bronchodilators every 4-6 hours continue levofloxacin, aztreonam, Anidulafungin. Wound cultures and respiratory cultures negative 3. Squamous cell carcinoma of the left upper lobe: Post robotic-assisted left upper lobectomy with no dissection and repair of left main bronchus on 03/13 pathology suggestive of T2 b, N0, M0 4. COPD: Patient will be continue on DuoNeb and possible Pulmicort continue O2 and titrate dose higher. 5. PAD: Post left carotid endarterectomy has been doing well since. 6. History of breast cancer post left-sided mastectomy and chemotherapy has been in remission. 7. Hypertension: Was on Coreg has been doing well. 8. Generalized anxiety disorder and panic attacks. Continue lorazepam. 9. Mild anemia: Mostly iron deficiency continue iron supplement. 10. Hypoglycemia: On diet control. 11. DVT prophylaxis. Heparin subcu. 12. GI prophylaxis. Protonix 40 mg IV push daily. DISCHARGE PLAN Discharge plan is tentatively home with VNA and IV antibiotics through [facility]. Impression and plan of care have been directed as dictated by the signing physician. Lucy Bee nurse practitioner acting as scribe for signing physician. Objective - Vital Signs Vital signs: Vital Signs Temp 98.1 F 04/09/20 04:00 Pulse 72 04/09/20 04:00 Resp 18 04/09/20 04:00 BP 135/75 04/09/20 04:00 Pulse Ox 94 L 04/09/20 04:00 Intake & Output 04/08/20 04/09/20 04/09/20 18:59 06:59 18:59 Intake Total 435 510 Output Total 1430 530 Balance -995 -20 Intake: IV 310 140 Anidulafungin 100 mg In 100 Sodium Chloride 0.9% 100 ml @ 84 mls/hr IVPB DAILY [facility] Rx#:[id number] Aztreonam 2 gm In Sodium 100 100 Chloride 0.9% 100 ml @ 33 .3 mls/hr IVPB Q8HR [facility] Rx#:[id number] Sodium Chloride 0.9% 1, 110 40 000 ml @ 20 mls/hr IV . Q24H [facility] Rx#:[id number] Intake, IV Titration 250 Amount Vancomycin 1,250 mg In 250 Sodium Chloride 0.9% 250 ml @ 125 mls/hr IVPB Q12H [facility] Rx#:[id number] Oral 125 120 Output: Chest Tube Drainage 30 30 Chest tube #2 Anterior 30 20 YASMEEN drain labeled #1 0 5 Posterior YASMEEN drain labeled #2 0 5 Anterior Urine 1400 500 Other: Voiding Method Bedside Commode Bedside Commode Diaper Diaper # Voids 2 2 # Bowel Movements 1 ABP, PAP, CO, CI - Last Documented Arterial Blood Pressure 141/53 - Labs CBC & Chem 7: 04/09/20 07:08 04/09/20 07:08
[2020-04-09] MEDS: traMADol 50 MG TAB PO PRN (19:58)
--- NOTE | 2020-04-09 23:28 | PN ---
PROGRESS NOTE DATE OF SERVICE: 04/09/2020 REASON FOR FOLLOWUP: Empyema, elevated white count. INTERVAL HISTORY: The patient is currently afebrile. The patient is breathing more comfortably. She denies having any chest pain. Minimal cough. No abdominal pain or diarrhea. PHYSICAL EXAMINATION: Blood pressure 133/91 with a pulse of 74, temperature 98.9. She is 97% on room air. General description is a middle-aged female up in the chair in no distress. RESPIRATORY SYSTEM: Unlabored breathing with decreased breath sounds at the base. No wheeze. HEART: S1, S2. Regular rate and rhythm. ABDOMEN: Soft. No tenderness. LABS: Hemoglobin is 8.3, white count 15.6. Vancomycin trough has been low. DIAGNOSTIC IMPRESSION AND PLAN: Patient admitted to hospital with left-sided pleural fluid concerning for empyema in this patient who is status post left upper lobectomy Culture has been negative. White count still elevated. Vancomycin was added. However, the dose was adjusted yesterday to keep the trough around 15; to continue along with Azactam and will monitor clinical course as well as cultures closely. Continue with supportive care. MMODL / IJN: [id number] / MTDD
[2020-04-10 05:49] LABS: Appearance,Urine Cloudy (Clear); Bacteria,Urine Rare /hpf; Bilirubin,Urine Negative (Negative); Blood,Urine Large (Negative); Color,Urine Light Red; Glucose,Urine (UA) Negative (Negative); Ketones,Urine Negative (Negative); Leukocyte Esterase,Urine Small (Negative); Nitrite,Urine Negative (Negative); Protein,Urine 1+ (Negative); RBC,Urine 2 /hpf (0-5); Specific Gravity,Urine 1.009 (1.001-1.035); Urobilinogen,Urine <2.0 mg/dL (<2.0); WBC,Urine 6 /hpf (0-5)
[2020-04-10 06:16] LABS: Anisocytosis Slight; HCT 26.7 % (34.0-46.0); HGB 8.5 gm/dL (11.4-16.0); Hypochromasia Slight; MCHC 31.7 g/dL (31.0-37.0); MCV 88.1 fL (80.0-100.0); Mean Platelet Volume 6.2; Platelet Count 923 k/uL (150-450); RBC 3.03 m/uL (3.80-5.40); RDW 16.8 % (11.5-15.5); WBC 15.3 k/uL (3.8-10.6)
[2020-04-10 06:24] LABS: African American GFR (CKD) >90 (>60 ml/min/1.73 sqM); Anion Gap 3 mmol/L; Blood Urea Nitrogen 16 mg/dL (7-17); Carbon Dioxide 28 mmol/L (22-30); Chloride 105 mmol/L (98-107); Glucose 98 mg/dL (74-99); Non-African American GFR(CKD) >90 (>60 ml/min/1.73 sqM); Potassium 4.5 mmol/L (3.5-5.1); Sodium 136 mmol/L (137-145)
[2020-04-10] MEDS: PANTOPRAZOLE 40 MG TABLET PO SCH (06:37)
--- NOTE | 2020-04-10 07:07 | XR ---
EXAMINATION TYPE: XR chest 1V portable DATE OF EXAM: 04/10/2020 COMPARISON: 04/09/2020 INDICATION: Bronchopleural fistula repair TECHNIQUE: Single frontal view of the chest is obtained. FINDINGS: The heart size is normal. The pulmonary vasculature is normal. Right-sided chest tubes remain in position. Small lateral pneumothorax remains present. There is air- fluid level pleural effusion of the left base. PICC line enters on the right with the tip in the proximal right atrium. IMPRESSION: 1. Small left pleural effusion. 2. Left-sided chest tubes with diminished pneumothorax
[2020-04-10] MEDS: ANIDULAFUNGIN 100 MG in SODIUM CHLORIDE 0.9% 100 ML IVPB SCH (08:35)
[2020-04-10] MEDS: HEPARIN SODIUM,PORCINE 5,000 UNIT/ML 1 ML VIAL SQ SCH ×3 (08:35→23:13)
[2020-04-10] MEDS: CALCIUM CARB-VIT D 500 MG-5 MCG TAB PO SCH (08:35)
[2020-04-10] MEDS: VANCOMYCIN 1,250 MG in SODIUM CHLORIDE 0.9% 250 ML IVPB SCH ×3 (08:35→23:13)
[2020-04-10] MEDS: METOPROLOL TARTRATE 25 MG TAB PO SCH ×2 (08:36→20:45)
[2020-04-10] MEDS: MAGNESIUM OXIDE 400 MG TAB PO SCH (08:36)
[2020-04-10] MEDS: AMIODARONE 200 MG TAB PO SCH ×2 (08:36→20:45)
[2020-04-10] MEDS: guaiFENesin 600 MG TABLET.ER PO SCH ×2 (08:36→16:00)
[2020-04-10] MEDS: LETROZOLE 2.5 MG TAB PO SCH (08:36)
[2020-04-10] MEDS: ZINC SULFATE 220 MG CAP PO SCH (08:36)
[2020-04-10] MEDS: IPRATROPIUM-ALBUTEROL 3 ML NEB INHALATION SCH ×3 (09:04→19:11)
[2020-04-10] MEDS: ACETYLCYSTEINE 800 MG/4 ML VIAL INHALATION SCH ×4 (09:04→19:10)
--- NOTE | 2020-04-10 10:16 | P.PN ---
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 Past medical history si gnificant for squamous cell carcinoma of the left lung status post robotically assisted left upper lobectomy with mediastinal lymph node dissection and repair of left main bronchus on 03/13/2020, pathology showed T2b, N0, M0, history of breast cancer status post left mastectomy, moderate to severe chronic restrictive pulmonary disease with a recent FEV1 value 72% of predicted value, history of left carotid stenosis status post left carotid endarterectomy in 2019, history of chronic tobacco dependence quit smoking in February 2020, history of degenerative joint disease. POD #11 Left posterior lateral thoracotomy, mobilization of latissimus muscle flap, exploratory thoracotomy through the fourth intercostal space, closure of bronchopleural fistula, decortication of left pleural space and portion of the left lower lobe, cryoablation of intercostal nerves L2 through L6, reinforcement of the bronchopleural fistula closure and modification in the left pleural space with the latissimus dorsi flap. POD #12 Fiberoptic bronchoscopy, left chest tube placement. Postoperative acute blood loss anemia, expected, dilutional. The patient was seen in follow-up today 04/10/2020 at her bedside on the cardiac stepdown unit. Currently the patient is laying in bed, is awake, alert and oriented 3. Denies any complaints of pain or shortness of breath at this time. Remote telemetry showing normal sinus rhythm heart rate 72 BPM. Oxygen saturations 97% on room air and she is achieving 7677-9803 mL on her incentive spirometry. She reports she has been up ambulating in the in the cardiac stepd own unit hallway with minimal assistance from nursing staff and has been ambulating in her room independently. Left pleural YASMEEN drain remains in place to water seal. No air leak is present. YASMEEN drains in place to her left chest wall with bulb suction. Draining scant serosanguineous drainage with 10 mL output in the last 24 hours. Laboratory results show a WBC count of 15.3 today which is trending down slightly from yesterday. She remains afebrile. Antibiotics are in place with Azactam, vancomycin and she also remains on Eraxis which is being managed by infectious disease. Sputum culture result from 04/06/2020 final report shows few normal respiratory kristen. Right arm PICC line remains in place and functioning. The patient's daughter Mike was on the phone during her bedside examination this morning and was updated on her care and her questions were answered to the best ability. Objective - Vital Signs Vital signs: Vital Signs Temp 97.8 F 04/10/20 00:00 Pulse 72 04/10/20 03:15 Resp 18 04/10/20 03:15 BP 132/61 04/10/20 03:15 Pulse Ox 97 04/10/20 03:15 Intake & Output 04/09/20 04/10/20 04/10/20 18:59 06:59 18:59 Intake Total 240 910 Output Total 50 2000 Balance 190 -1090 Weight 62.1 kg Intake: IV 260 Aztreonam 2 gm In Sodium 100 Chloride 0.9% 100 ml @ 33 .3 mls/hr IVPB Q8HR [facility] Rx#:[id number] Sodium Chloride 0.9% 1, 160 000 ml @ 20 mls/hr IV . Q24H [facility]A Rx#:[id number] Intake, IV Titration 250 Amount Vancomycin 1,250 mg In 250 Sodium Chloride 0.9% 250 ml @ 125 mls/hr IVPB Q12H [facility]A Rx#:[id number] Oral 240 400 Output: Chest Tube Drainage 50 0 Chest tube #2 Anterior 30 0 YASMEEN drain labeled #1 10 0 Posterior YASMEEN drain labeled #2 10 0 Anterior Urine 2000 Other: Voiding Method Toilet Toilet # Voids 2 ABP, PAP, CO, CI - Last Documented Arterial Blood Pressure 141/53 - Constitutional General appearance: Present: average body habitus, cooperative, no acute distress - EENT Eyes: Present: normal appearance. Absent: scleral icterus ENT: Present: hearing grossly normal - Neck Details: Neck is supple, no JVD. No lymphadenopathy. - Respiratory Details: Lung sounds essentially clear throughout, diminished to her left upper lobe. Respirations are symmetrical and nonlabored. Oxygen saturation are 97% on room air. Achieving 3304-6081 mL on her incentive spirometry. Left chest YASMEEN pleural drain remains in place to water seal. No air leak is present. Draining thin serosanguineous drainage with 30 mL output in the last 8 hours and 200 mL output in the last 24 hours. - Cardiovascular Details: Regular rhythm and rate. S1 and S2 present, negative for S3 or gallop. Soft systolic murmur heard best were left sternal border. Knee-high EULOGIO hose and sequential compression devices in place to her bilateral lower extremities. Right PICC line in place and functioning. No edema present. - Gastrointestinal Gastrointestinal Comment(s): Abdomen is soft, nontender and nondistended. Active bowel sounds present in all 4 quadrants. No guarding or rigidity. No organomegaly appreciated. Tolerating oral intake. - Genitourinary Genitourinary Comment(s): Voiding clear yellow urine. - Integumentary Integumentary Comment(s): Skin is warm and dry. No clubbing or cyanosis is present. Left lateral thoracotomy incision is clean, dry and approximated. No drainage or redness is present. Minimal residual swelling to her left posterior chest wall, soft and nontender to palpate. YASMEEN drains [address] to her left lateral chest wall. Remain to suction and draining thin scant serosanguineous drainage with 10 mL output in the last 24 hours. - Neurologic Neurologic: Present: CNII-XII intact - Musculoskeletal Musculoskeletal: Present: gait normal, strength equal bilaterally - Psychiatric Psychiatric: Present: A&O x's 3, appropriate affect, intact judgment & insight - Allied health notes Allied health notes reviewed: nursing - Labs CBC & Chem 7: 04/10/20 05:36 04/10/20 05:36 Labs: Abnormal Lab Results - Last 24 Hours (Table) 04/10/20 04/10/20 04/10/20 Range/Units 05:05 05:36 05:36 WBC 15.3 H (3.8-10.6) k/uL RBC 3.03 L (3.80-5.40) m/uL Hgb 8.5 L (11.4-16.0) gm/dL Hct 26.7 L (34.0-46.0) % RDW 16.8 H (11.5-15.5) % Plt Count 923 H (150-450) k/uL Sodium 136 L (137-145) mmol/L Creatinine 0.46 L (0.52-1.04) mg/dL Urine Appearance Cloudy H (Clear) Urine Protein 1+ H (Negative) Urine Blood Large H (Negative) Ur Leukocyte Esterase Small H (Negative) Urine WBC 6 H (0-5) /hpf Urine Bacteria Rare H (None) /hpf Microbiology - Last 24 Hours (Table) 04/06/20 22:00 Gram Stain - Final Sputum Sputum Culture - Final - Imaging and Cardiology Chest x-ray: report reviewed, image reviewed Assessment and Plan Assessment: 1. Empyema left chest with bronchopleural fistula, status post left upper lobectomy, status post left posterior lateral thoracotomy, mobilization of latissimus muscle flap, closure of bronchopleural fistula, decortication of left pleural space and portion of the left lower lobe, reinforcement of the buccal pleural fistula closure and modification of the left pleural space with latissimus dorsi flap 2. New onset atrial fibrillation with RVR, currently in normal sinus rhythm 3. Leukocytosis secondary to empyema 4. Squamous cell carcinoma left upper lobe lung, status post robotic-assisted left upper lobectomy on 03/13/2020, pathology showing T2b, N0 M0 5. Hypertension 6. Moderate to severe chronic obstructive pulmonary disease with a recent FEV1 72% of predicted value 7. History of carotid stenosis, status post left carotid endarterectomy in 2018 8. Previous chronic tobacco dependence quit smoking in February 2020 9. History of breast cancer, status post left mastectomy 10. History of degenerative joint disease 11. Postoperative acute blood loss anemia, expected, dilutional Plan: 1. Encourage use of her incentive spirometry 10 times every hour while awake. 2. Bronchodilator management per pulmonary critical care management. 3. Continue beta lupillo and amiodarone for atrial fibrillation prophylaxis. 4. Continue to monitor daily labs and chest x-rays. 5. GI and DVT prophylaxis. 6. Continue to reinforce the importance of continued smoking cessation. 7. Discontinue left pleural YASMEEN tube. Continue left chest wall YASMEEN drains to bulb suction. 8. Pain control per current when necessary orders. 9. Antibiotic management per infectious disease recommendations, currently on vancomycin and aztreonam for antibiotic coverage. Remains afebrile. 10. Increase activity as tolerated. Out of bed for all meals. Physical and occupational therapy following. 11. Anticipate discharge home in the next 24-48 hours. Discharge planning is in place. 12. More recommendations to follow based on patient's clinical course. Time with Patient: Greater than 30
[2020-04-10 10:44] VITALS: BMI 23.5
[2020-04-10] MEDS: AZTREONAM 2 GM in SODIUM CHLORIDE 0.9% 100 ML IVPB SCH (11:25)
--- NOTE | 2020-04-10 12:20 | P.PN ---
Subjective Progress Note Date: 04/10/20 HISTORY OF PRESENT ILLNESS 69-year-old female one of Dr. 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 Patient also survival of rest cancer post left mastectomy in 2010 post chemotherapy also she is known to have history of carotid stenosis post left carotid endarterectomy in 2018 previous history of tobacco use she quit in February this year continue to have moderate COPD with FEV1 of 72 percentile history of hypertension hyperlipidemia. Patient left the hospital on March 17 after surgery was seen pulmonary and cardiothoracic surgery on regular basis she returned to the emergency department shortly after midnight today because of worsening dyspnea and shortness of breath with significant tachycardia according to patient she become more symptomatic with rapid ventricular response on and off become more symptomatic causing worsening shortness of breath. Was seen and evaluated demurs department her white blood cell was 18.5 hemoglobin 10.5 hematocrit 32.9 d-dimer was 2.48 patient COVID 19 testing was negative she found to be in A. fib with RVR pulse 153 beats per minutes cardiology were called along with cardiothoracic patient chest x-ray showed pleural effusion and pneumothorax of the left side. She was started on Cardizem drip brought the pulse rate down no anticoagulation was started this point patient was on Plavix since her carotid surgery and no previous history of A. fib her pulse rate used to be well controlled on Coreg 6.25 mg twice a day in the past. Patient will be going to the OR by cardiothoracic and she will have more repair along with chest tube as well. 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 Patient will be back to the ICU after surgery. 03/31: Patient evaluated in the ICU this morning, sitting up in the bedside chair, in no acute distress. She is postop day #1 status post left posterior lateral thoracotomy, closure of the bronchopleural fistula, and cryoablation of the intercostal nerves. Patient still has 2 left-sided chest tubes in place, she continues on Levaquin, vancomycin, and Aztreonam. Cultures are still pending, infectious disease on consult. Repeat chest x-ray shows residual left pneumothorax and left perihilar consolidation. Vital signs are stable, she is afebrile 98.0, heart rate is 90, respiratory 23, temperature 128/57, she's 95% on 3 L via nasal cannula. 04/01: Patient evaluated in the ICU, sitting up in the bedside chair. Nurse states she went to stand patient up to get her out of bed and she had a syncople episode. She was noted to be hypotensive 63/37 and tachycardic with a heart r ate of 111. Stat CBC and repeat chest x-ray ordered, patient placed back in bed blood, pressure did come up to 99/47, heart rate 90. Hemoglobin 7.7, platelets 729, sodium 130, creatinine 0.51, BUN 16. Left pleural chest tube in place, left pleural YASMEEN drain in place and continues to drain serosanguineous drainage, left lateral chest YASMEEN drains [address] with bulb suction. Repeat chest x-ray bentley wed some improvement of aeration throughout the remaining left lung post lobectomy, pneumothorax remains. 04/02: Patient remains in the ICU. Patient had chest CT yesterday which showed chest wall herniation causing increase opacity in the left midlung at the third through fourth intercostal space. Large size hematoma in the posterior lateral lower thoracic chest and subcutaneous tissue. Patient's hemoglobin dropped to 6.1 she did receive 2 units of packed red blood cells, hemoglobin went up to 8.4 after the transfusion and dropped to 7.8 this morning. Clinically patient looks much better today, reports she is feeling much better as well. She is off supplemental oxygen and currently 94%, continue to use incentive spirometer, chest tubes remain in place. 04/03: Patient examined in the ICU. Patient was up walking in the just[place] yesterday and is doing well. Patient has left pleural chest tube and 2 YASMEEN drains to continuous suction with air leaks. She continues on Levaquin, vancomycin and Aztreonam per infectious disease. Hemoglobin stable, 7.9 this morning, WBC 14.2, sodium 133, BUN 8, creatinine 0.39. She remains afebrile, vital signs are stable she is 97% on 2 L via nasal cannula. Patient did have multiple episodes of paroxysmal atrial fibrillation last night, cardiology is on consult. Cardiology did increase her dose of Coreg to 12.5 twice a day, currently she is rate controlled and converted back to normal sinus rhythm. 04/04 2020: Patient remain in the ICU, still have chest tube in, there is a quite possibility might have pneumothorax and slight leak around the chest tube area a chest x-ray still pending at this point, patient still seen pulmonary and cardiothoracic might need another chest tube or adjustment of her current chest tube area. He'll otherwise pain is under control currently patient is hemodynamically stable. 04/05 2020 patient examined sitting comfortably in the chair. Complains of epigastric tenderness and burning in her chest. The patient denies any chest pain, shortness of breath dizziness or lightheadedness. She does have pain around her chest tube on the left but denies any cough or breathing difficulty. Patient evaluated by neurology with no plan to adjust the chest tubes. Chest x- ray was repeated with stable left pleural area collection and mild lung volume loss along with small to moderate left pleural fluid collection. Vitals are stable temperature of 98.1 pulse 77 and respiratory rate 16 blood pressure 139/72 oxygen saturation 96% on room air. Patient had persistent leukocytosis of 16.7 hemoglobin stable at 8.8 Creatinine 0.41 glucose is stable at 124. Patient stable on bronchodilators and aztreonam and Levaquin. For culture and wound cultures are negative. 04/06 patient examined sitting comfortably in the chair. Denies any epigastric tenderness or shortness of breath. Patient denies any chest pain, dizziness lightheadedness, fatigue. She denies any change in bowel habits or diarrhea or constipation. Patient does have some pain around the chest tube which is controlled with medication. Left pleural chest tube and 2 YASMEEN drains continued to suction with continuous air leak present and chest tube. Vitals are stable with a pulse of 93 respiratory rate 19 and blood pressure 136/87 oxygen saturation 92% on room air. On evaluation the patient's blood pressure today continues to have leukocytosis of 16.4 hemoglobin 8.3 platelet 903. Sodium remains at 133 creatinine 0.4. Continue amiodarone at 400 twice a day. Patient continues to remain in normal sinus rhythm. Patient continues to be on azt reonam and Levaquin. anidulafungin was added due to persistent leukocytosis. 04/07: Patient is seen today in the intensive care unit. 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 She remains with a chest tube in place as well as 2 YASMEEN drains. A PICC line has been ordered for today for IV antimicrobials. Patient is currently on Eraxis, Levaquin and Azactam. Patient's pulse ox see 92% on room air. She is reaching 750 on incentive spirometry. She has been afebrile, heart rate in the 70s, blood pressure 115/64. smearer is a sinus rhythm. Repeat blood work reveals WBC 17.6, hemoglobin 8.2, platelet count 889. Sodium 134 otherwise electrolytes are n ormal, creatinine 0.5. Blood sugar 104. Repeat chest x-ray reveals continued small to moderate left effusion and possible loculated pneumothorax on the left. Apical component is not as well as seen and estimated at 6 mm versus 1.5 cm earlier today. 2 pleural drains remain in the left side. Patient is multiple consultations in place including cardiothoracic surgery, ovary medicine, infectious disease. Cardiology is following on an as-needed basis. Discharge plan is tentatively home with VNA and IV antibiotics through [facility]. 04/08: Patient remains in intensive care unit and waiting for a bed on the cardiac stepdown unit. She states her breathing is better today. Patient is seen sitting in a recliner and appears to be comfortable. chest tube 1, YASMEEN drain 2. Pulse ox 95% on room air, on recheck was 88 on room air. She has been afebrile, heart rate 80, blood pressure 147/71. Patient had a midline placed yesterday. Hemoglobin 8.4, WBC 16, platelet count 952. Sodium 136, potassium 4.4, chloride 103, CO2 31, BUN 14 and creatinine 0.47. Repeat chest x-ray reveals stable left pneumothorax. Left chest tubes in place. 04/09: The patient is seen today on the cardiac stepdown unit. Patient states that her breathing is much improved since admission. She states her appetite is okay and she is waiting for oatmeal which is been ordered. She complains of a cough with occasional production after updraft treatments. She has been afebrile, heart rate 72, blood pressure 125/88, pulse ox 98% on room air. WBC 15.6, hemoglobin 8.3, platelet count 998. Electrolytes normal. Creatinine 0.51. Repeat chest x-ray reveals improved left-sided pleural air collection with stable small to moderate size left basilar pleural fluid collection with adjacent atelectasis and/or infiltrate. Patient remains on vancomycin, Azactam, and Eraxis. 04/10: The patient is sitting up in recliner. She had appears to have no acute respiratory distress. Daughter is on the phone on speaker. smearer is been a sinus rhythm. Pulse ox 97% on room air. Afebrile, blood pressure 132/61. Repeat blood work reveals WBC 15.3, hemoglobin 8.5, platelet 923. Sodium 136, potassium 4.5, chloride 105, CO2 28, BUN 16 and creatinine 0.46. Blood sugar 98. Repeat chest x-ray reveals small left pleural effusion. Left chest tube with diminished pneumothorax. Dr. Hernandezed to clarify antibiotics and p ossible discharge home tomorrow. REVIEW OF SYSTEMS Constitutional: Denies chills, Denies fever, Denies lethargy, Denies malaise, Denies poor appetite, reports weakness, Denies weight loss Eyes: denies decreased vision, denies pain Cardiovascular: Endorses chest pain, endorses decreased exercise tolerance, endorses edema, Denies high blood pressure, Denies palpitations, Denies paroxysmal nocturnal dyspnea, Denies rapid heart beat, Denies shortness of breath Respiratory: Denies congestion, Denies cough, Denies cough with sputum, Denies dyspnea, Denies home oxygen, Denies wheezing Gastrointestinal: Denies abdominal pain, Denies change in bowel habits, Denies coffee ground emesis, Denies early satiety, Denies excessive gas, Denies heartburn, Denies hematemesis, Denies hematochezia, Denies loss of appetite, Denies nausea, Denies vomiting Genitourinary: Denies dysuria, Denies flank pain, Denies kidney stones, Denies menorrhagia, Denies urgency, Denies urinary frequency Musculoskeletal: Denies gait dysfunction, Denies limitation of motion, Denies morning stiffness, Denies muscle cramps Integumentary: Denies rash, Denies wounds, Denies brittle nails, Denies change in hair/nails, Denies darkening of skin Neurological: Denies balance difficulties, Denies change in speech, Denies double vision, Denies gait dysfunction, Denies loss of vision, Denies motor disturbance, Denies numbness, Denies paralysis, Denies paresthesias, Denies seizures PHYSICAL EXAMINATION Gen: This is a 69-year-old female. Patient is resting in chair and appears to be comfortable and in no acute distress. HEENT: Supple, no lymphadenopathy, no thyroid enlargement, no carotid bruits. Lungs: Decreased breath sounds. No wheezes. Chest Wall: Decrease expansion with deep inspiration scar from her incision on the left side looks fine still have slight soreness pain and discomfort and tenderness in the left side of the rib cage left chest tube in place. Heart: Regular rate and rhythm, S1, S2 normal, no murmur, rub or gallop. Back: Symmetric, no curvature, ROM normal, no CVA tenderness. Abdomen: Soft, non-tender, bowel sounds active all four quadrants, no masses, no organomegaly. Extremities: Extremities normal, atraumatic, no cyanosis or edema. Pulses: 2+ and symmetric. Skin: Skin color, texture, tugor normal, no rashes or lesions. Neurologic: Alert oriented x3 cranial nerves II through XII intact, no motor deficit. ASSESSMENT AND PLAN 1. New onset of A. fib with RVR, paroxysmal atrial fibrillation. Patient is currently in sinus rhythm. Consult with cardiology appreciated. Patient is currently on Amiodarone 400 twice a day and metoprolol 25 twice a day. We'll hold anticoagulation until cleared by CTS. 2. Empyema left chest with bronchopleural fistula status post bronchoscopy with left chest tube placement with post exploratory thoracotomy with cryoablation of the intercostal nerve of L2 through 6. Reinforcement of bronchopleural fistula closure and modification of the left pleural space was done. Continue left pleural chest tube and left YASMEEN x2. Monitor for air leak. Continue incentive spirometer continue bronchodilators every 4-6 hours continue levofloxacin, aztreonam, Anidulafungin. Wound cultures and respiratory cultures negative 3. Squamous cell carcinoma of the left upper lobe: Post robotic-assisted left upper lobectomy with no dissection and repair of left main bronchus on 03/13 pathology suggestive of T2 b, N0, M0 4. COPD: Patient will be continue on DuoNeb and possible Pulmicort continue O2 and titrate dose higher. 5. PAD: Post left carotid endarterectomy has been doing well since. 6. History of breast cancer post left-sided mastectomy and chemotherapy has been in remission. 7. Hypertension: Was on Coreg has been doing well. 8. Generalized anxiety disorder and panic attacks. Continue lorazepam. 9. Mild anemia: Mostly iron deficiency continue iron supplement. 10. Hypoglycemia: On diet control. 11. DVT prophylaxis. Heparin subcu. 12. GI prophylaxis. Protonix 40 mg IV push daily. DISCHARGE PLAN Discharge plan is tentatively home with VNA and IV antibiotics through [facility] on Tuesday. Impression and plan of care have been directed as dictated by the signing physician. Lucy Bee nurse practitioner acting as scribe for signing physician. Objective - Vital Signs Vital signs: Vital Signs Temp 97.8 F 04/10/20 00:00 Pulse 72 04/10/20 03:15 Resp 18 04/10/20 03:15 BP 132/61 04/10/20 03:15 Pulse Ox 97 04/10/20 03:15 Intake & Output 04/09/20 04/10/20 04/10/20 18:59 06:59 18:59 Intake Total 240 910 Output Total 50 2000 Balance 190 -1090 Weight 62.1 kg Intake: IV 260 Aztreonam 2 gm In Sodium 100 Chloride 0.9% 100 ml @ 33 .3 mls/hr IVPB Q8HR [facility]A Rx#:[id number] Sodium Chloride 0.9% 1, 160 000 ml @ 20 mls/hr IV . Q24H [facility]A Rx#:[id number] Intake, IV Titration 250 Amount Vancomycin 1,250 mg In 250 Sodium Chloride 0.9% 250 ml @ 125 mls/hr IVPB Q12H [facility]A Rx#:[id number] Oral 240 400 Output: Chest Tube Drainage 50 0 Chest tube #2 Anterior 30 0 YASMEEN drain labeled #1 10 0 Posterior YASMEEN drain labeled #2 10 0 Anterior Urine 2000 Other: Voiding Method Toilet Toilet # Voids 2 ABP, PAP, CO, CI - Last Documented Arterial Blood Pressure 141/53 - Labs CBC & Chem 7: 04/10/20 05:36 04/10/20 05:36 Labs: Abnormal Lab Results - Last 24 Hours (Table) 04/10/20 04/10/20 04/10/20 Range/Units 05:05 05:36 05:36 WBC 15.3 H (3.8-10.6) k/uL RBC 3.03 L (3.80-5.40) m/uL Hgb 8.5 L (11.4-16.0) gm/dL Hct 26.7 L (34.0-46.0) % RDW 16.8 H (11.5-15.5) % Plt Count 923 H (150-450) k/uL Sodium 136 L (137-145) mmol/L Creatinine 0.46 L (0.52-1.04) mg/dL Urine Appearance Cloudy H (Clear) Urine Protein 1+ H (Negative) Urine Blood Large H (Negative) Ur Leukocyte Esterase Small H (Negative) Urine WBC 6 H (0-5) /hpf Urine Bacteria Rare H (None) /hpf Microbiology - Last 24 Hours (Table) 04/06/20 22:00 Gram Stain - Final Sputum Sputum Culture - Final
--- NOTE | 2020-04-10 12:42 | XR ---
EXAMINATION TYPE: XR chest 2V DATE OF EXAM: 04/10/2020 COMPARISON: Earlier exam 04/10/2020 INDICATION: Removal of left side chest tube TECHNIQUE: Single frontal view of the chest is obtained. FINDINGS: The heart size is normal. The pulmonary vasculature is normal. Small pneumothorax remains present. Subcutaneous emphysema is diminished. Two right-sided chest tubes remain present. IMPRESSION: 1. Small Pneumothorax right.
--- NOTE | 2020-04-10 14:20 | P.PN ---
Subjective Progress Note Date: 04/10/20 Principal diagnosis: Large left pneumothorax, new onset atrial fibrillation On 03/31/2020 the patient is being seen for a follow-up. 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 The patient was taken to the operating room approximately 2 weeks ago and the patient underwent a robotic-assisted left upper lobe resection. Postop, the patient was discharged home to be readmitted back to the hospital rule out empyema and air-fluid levels in the left chest along with a new onset atrial fibrillation and elevated white cell count. 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 A lesser the chest tube was placed at a time and drained turbid fluid. Gram stain was positive for gram-negative rods. Subsequently, the patient was taken back to the operating room and the patient underwent a thoracotomy and closure of a bronco pleural fistula with a muscle flap. The patient underwent a left posterior lateral thoracotomy, mobilization of the latissimus muscle flap, exploratory thoracotomy through the fourth int ercostal space, closure of the bronchopleural fistula and decortication of the left pleural space and portion of the left lower lobe and cryo-ablation of the intercostal nerves II through through L6 was done and reinforcement of the fistula was done and modification of the left pleural space with latissimus dorsi flap. The patient intraoperatively was found to have an empyema of the left chest as mentioned. Postop, the patient was extubated and the patient was brought back to the intensive care unit for further monitoring. She was placed on oxygen at 3 L about 2 by nasal cannula. There was a left-sided chest tube in place with a Pleur-evac and there were also 2 YASMEEN drains within the pleural space. The patient was being covered with broad-spectrum antibiotics including a combination of Levaquin, aztreonam and vancomycin pending further cultures from the pleural space. The patient was on tramadol 50 mg every 6 hours when necessary basis for pain control. The patient is also on Isabel 53 25 one tablet every 4-6 hours on a when necessary basis for pain control. The patient recovered from the atrial fibrillation and the patient is currently in sinus rhythm. Cardizem drip has been discontinued and the patient was placed on Coreg 6.25 mg by mouth twice a day. She is on heparin subcu for DVT prophylaxis. IV fluids running at 40 mL an hour of normal saline. Chest x-ray revealed a pleural air fluid levels/pneumothorax and the left upper chest area measuring 2.1 cm in size. A small left-sided pleural effusion/consolidation of the left lung base. There were 2 drains within the pleural space in addition to surgical changes are thoracotomy. The patient has a right IJ triple-lumen catheter in place. Liver output, the chest tube has put out approximately 20 mL over the p ast 24 hours and there is no evidence of any air leak. As for the YASMEEN drains,one in the pleural space and drained approximately 450 over the past 24 hours. Whereas the other YASMEEN drains are present in her lap and drained 60 mL and 20 mL over the past 12 hours. She is awake and alert. She is using incentive spirometer. She is afebrile. Hemodynamically stable. She is on no pressors. IV fluids are running at the rate of 40 mL an hour. She is tolerating her diet. Today's evaluation of 04/01/2020, the patient is being seen for a follow-up. The patient is doing essentially the same as yesterday. She is using incentive spirometer and she is pulling approximately 800 mL on her I asked. The patient had a follow-up chest x-ray today that showed no major interval change compared to yesterday's chest x-ray. I do not appreciate any pneumothorax. All of the drains in the tubes are still in place. Note that the patient has a regular posterior chest to talk with of which has been minimal in the order of 10 mL over the past 24 hours and it's still has some minimal amount of intermittent air leak. The YASMEEN drains in the flap is in order of 250 mL in the anterior pain and 125 in the posterior drain over the past 8 hours. His another third drain in the pleural space output of which is still 120 mL over the past 24 hours. Cultures still pending for now. There is gram-negative bacteria. The patient remains on a combination of Levaquin, aztreonam and vancomycin. Surgical wound site is dry clean and intact. The patient has some swelling along the left posterior chest area at the surgical sites. No hematoma collection. She has a congested cough. Unable to bring up much sputum. She is afebrile. Her white cell count has dropped and the count is down to 15. The patient remains on normal saline at the rate of 100 mL an hour. He was having a low urine output in the order of 10-20 mL yesterday and this is improved with the increase the fluid rates. Creatinine is stable for now. Her pain is under adequate control and she is on Isabel. She has received cryoablation. She is postop day #2. Cardiac rhythm is sinus. There is no atrial fibrillation. The patient is off all drips and she is utilizing Coreg for rate control. The patient is seen today 04/02/2020 in follow-up in the intensive care unit. She is currently sitting up in bed. Awake and alert in no acute distress. She is maintaining good O2 saturations in the 90s on room air now. 0.9 normal sitting in 100 ML's per hour. She is postoperative day #3 of a left thoracotomy with deep decortication and muscle flap. Computed tomography scan of the chest yesterday revealed postsurgical changes of the left lung. 2 left-sided chest tubes in pleural spaces containing a small amount of residual fluid. There is a chest wall herniation causing increased opacity in the left midlung at the third to fourth intercostal space. Note is made of moderate to large sided organizing hematoma in the posterior lateral left thorax thoracic chest wall and subcutaneous tissue. Today's chest x-ray reveals chest tubes in place. Extensive pleural parenchymal opacities persist throughout the left hemithorax. A loculated component along the lateral mid lung may be slightly decreased in size. She is status post 2 units of packed red blood cells this admission. Current hemoglobin 7.8. White count 15.7. Sodium 133. Potassium 4.2. Creatinine 0.43. She remains on bronchodilators, antibiotics in the form of aztreonam, vancomycin, Levaquin. The patient is seen today 04/03/2020 in follow-up in the intensive care unit. Postoperative day #4. She is awake and alert in no acute distress. Currently sitting up in bed. Maintaining good O2 saturation in the 90s on 2 L/m per nasal cannula. 0.9 normal saline at 30 mL per hour. Chest x-ray shows significant subcutaneous emphysema, rounded opacity within the left peripheral midlung. Improving infiltrates in the left lung field. No evidence of pneumothorax. 2 left-sided catheters remain in place. She is working well with the incentive spirometer. She is status post 2 units of packed red blood cells this admission. Current hemoglobin 7.9. Thoracic fluid cultures revealed no growth. Wound cultures reveal no growth. Pathology findings revealed fibrin debris with acute and chronic inflammation and a few reactive mesothelial elements. Negative for neoplasm. White count 14.2. Sodium 133. Potassium 2.9. Creatinine 0.39. Continues on bronchodilators, aztreonam, Levaquin. Heparin for DVT prophylaxis. Patient is seen today 04/04/2020 in follow-up in the intensive care unit. Postoperative day #5. She is sitting up in a chair at the bedside. Awake and alert in no acute distress. She denies any worsening shortness of breath, cough or congestion. She is maintaining O2 saturation the 90s on room air. 0.9 normal saline at 30 MLS per hour. She did have a brief episode of atrial fibrillation with a rapid ventricular response last night. She's had some episodes of hypotension. Her Coreg was discontinued and she was started on low- dose metoprolol. Chest x-ray reveals postsurgical changes the left lung ray demonstrated. Improved left sided pleural air collection on the current study and improved left-sided volume loss. Some question of possible left-sided pneumothorax. YASMEEN drain remains to low continuous wall suction. Chest tube was placed to waterseal. White count 16.9. Hemoglobin 8.2. Sodium 133. Potassium 4.0. Creatinine 0.40. She remains on bronchodilators. Working well with the incentive spirometer. Antibiotics in the form of aztreonam and Levaquin. The patient is seen today 04/05/2020 in follow-up in the intensive care unit. Postoperative day #6. She is currently sitting up in a chair at the bedside. Awake and alert in no acute distress. She denies any worsening shortness of breath, cough or congestion. No hemoptysis. Currently maintaining O2 saturations in the 90s on room air. She has a 0.9 normal saline at 10 MLS per hour. Amiodarone drip at 0.5 mg/m. No recent arrhythmias. Currently in normal sinus rhythm. Left pleural chest tube and 2 YASMEEN drains remain in place to continue continuous suction with a continuous air leak and the atrium. Chest x- ray reveals postsurgical changes in the left lung ray demonstrated. Stable small sized left pleural air collection on current study and mild left volume loss along with stable small to moderate size left basilar pleural fluid col lection. No new infiltrates seen. She is status post 2 units of packed red blood cells this admission. Current hemoglobin 8.8. Fluid cultures and wound cultures reveal no growth. White count 16.7. Sodium 134. Potassium 3.9. Creatinine 0.41. She remains on bronchodilators, aztreonam and Levaquin. The patient is seen today 04/06/2020 in follow-up in the intensive care unit. She is currently up in a chair at the bedside. Awake and alert in no acute distress. This is postoperative day #7. She is maintaining good O2 saturations in the 90s on room air. She has 0.9 normal saline at 30 MLS per hour. She has YASMEEN drains and a chest tube still in the left chest which are to wall suction. Chest x-ray continues to show stable small sized left sided pleural air collection and current study with chest tubes in place mid left-sided volume loss along with stable small to moderate left-sided pleural fluid. No new infiltrates. Bronchial wash cultures and fluid cultures reveal no growth. White count 16.4. Hemoglobin 8.3. Platelets continue to rise at 903,000. Sodium 133. Potassium 4.1. Creatinine 0.42. She remains on Levaquin and aztreonam. Continued on Eraxis. Heparin for DVT prophylaxis. The patient is seen today 04/09/2020 in follow-up on the selective care unit. She is currently sitting up in a chair at the bedside. Awake and alert in no acute distress. Separate day #10. YASMEEN drains a left-sided chest tube remains in place. Currently to waterseal, off suction. She is maintaining good O2 saturations in the 90s on room air. Pulling approximately 1 L on her incentive spirometer. Chest x-ray revealed evidence of improved left-sided pleural air collection with stable mild left-sided volume loss along with stable small to moderate sized left basilar pleural fluid collection and adjacent atelectasis and/or infiltrate. No new infiltrate is seen. Remains on vancomycin, aztreonam and Levaquin. Remains on Eraxis. Heparin for DVT prophylaxis. The patient is seen today 04/10/2020 in follow-up on the selective care unit. She is currently awake and alert and doing well. She is sitting up in a chair at the bedside. Her chest tube has been removed. Follow-up chest x-ray reveals a small pneumothorax stable compared to previous. Subcutaneous emphysema is diminishing. 2 right-sided YASMEEN drains remain. Maintaining good O2 saturations up to 99% on room air. She's afebrile. Hemodynamically stable. White count 15.3. Hemoglobin 8.5. Sodium 136. Potassium 4.5. Creatinine 0.46. Thoracic fluid, bronchial wash, sputum cultures all reveal no growth. She is continued on DuoNeb inhalations, antibiotics in the form of vancomycin, aztreonam, along with Eraxis. Objective - Vital Signs Vital signs: Vital Signs Temp 98.0 F 04/10/20 08:00 Pulse 78 04/10/20 13:03 Resp 20 04/10/20 12:00 BP 135/73 04/10/20 12:00 Pulse Ox 99 04/10/20 12:00 Intake & Output 04/09/20 04/10/20 04/10/20 18:59 06:59 18:59 Intake Total 240 910 490 Output Total 50 2000 620 Balance 190 -1090 -130 Weight 62.1 kg 62.1 kg Intake: IV 260 240 Anidulafungin 100 mg In 100 Sodium Chloride 0.9% 100 ml @ 84 mls/hr IVPB DAILY [facility] Rx#:[id number] Aztreonam 2 gm In Sodium 100 100 Chloride 0.9% 100 ml @ 33 .3 mls/hr IVPB Q8HR [facility] Rx#:[id number] Sodium Chloride 0.9% 1, 160 40 000 ml @ 20 mls/hr IV . Q24H [facility] Rx#:[id number] Intake, IV Titration 250 250 Amount Vancomycin 1,250 mg In 250 Sodium Chloride 0.9% 250 ml @ 125 mls/hr IVPB Q12H [facility] Rx#:[id number] Vancomycin 1,250 mg In 250 Sodium Chloride 0.9% 250 ml @ 125 mls/hr IVPB Q8HR [facility] Rx#:[id number] Oral 240 400 Output: Chest Tube Drainage 50 0 20 Chest tube #2 Anterior 30 0 0 YASMEEN drain labeled #1 10 0 10 Posterior YASMEEN drain labeled #2 10 0 10 Anterior Urine 2000 600 Other: Voiding Method Toilet Toilet Toilet # Voids 2 ABP, PAP, CO, CI - Last Documented Arterial Blood Pressure 141/53 - Exam GENERAL EXAM: Alert, pleasant 69-year-old female patient, currently up in a chair at the bedside, on room air, fairly comfortable in no apparent distress. HEAD: Normocephalic. EYES: Normal reaction of pupils, equal size. NOSE: Clear with pink turbinates. THROAT: No erythema or exudates. NECK: No masses, no JVD. CHEST: Left-sided YASMEEN drains x [address] LUNGS: Equal air entry with bilateral scattered rhonchi more so on the left lung CVS: S1 and S2 normal with no audible murmur, regular rhythm. ABDOMEN: No hepatosplenomegaly, normal bowel sounds, no guarding or rigidity. SPINE: No scoliosis or deformity SKIN: No rashes CENTRAL NERVOUS SYSTEM: No focal deficits, tone is normal in all 4 extremities. EXTREMITIES: There is no peripheral edema. No clubbing, no cyanosis. Peripheral pulses are intact. - Labs CBC & Chem 7: 04/10/20 05:36 04/10/20 05:36 Labs: Abnormal Lab Results - Last 24 Hours (Table) 04/10/20 04/10/20 04/10/20 Range/Units 05:05 05:36 05:36 WBC 15.3 H (3.8-10.6) k/uL RBC 3.03 L (3.80-5.40) m/uL Hgb 8.5 L (11.4-16.0) gm/dL Hct 26.7 L (34.0-46.0) % RDW 16.8 H (11.5-15.5) % Plt Count 923 H (150-450) k/uL Sodium 136 L (137-145) mmol/L Creatinine 0.46 L (0.52-1.04) mg/dL Urine Appearance Cloudy H (Clear) Urine Protein 1+ H (Negative) Urine Blood Large H (Negative) Ur Leukocyte Esterase Small H (Negative) Urine WBC 6 H (0-5) /hpf Urine Bacteria Rare H (None) /hpf Assessment and Plan Assessment: 1 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 Status post Left posterior lateral thoracotomy, mobilization of latissimus muscle flap, exploratory thoracotomy through the fourth interspace, closure of bronchopleural fistula, decortication of left pleural space and portion of the left lower lobe, cryoablation of intercostal nerves L2 through L6, reinforcement of the bronchopleural fistula closure and modification in the left pleural space with the latissimus dorsi flap. Post operative day #11. Remains on antibiotics in the form of vancomycin, aztreonam and Levaquin Chest x-ray from today 04/09/2020 reveals postoperative changes in the left lung redemonstrated. Improved left sided pleural air collection on current study with chest tubes in place and stable mild left-sided volume loss along with stable small to moderate left-sided pleural effusion and adjacent atelecta sis/infiltrate. No new infiltrates seen. Left-sided chest tube and 2 YASMEEN drains remain in place. 2 Bronchopleural fistula, left upper lobe apical stump status post fiberoptic bronchoscopy, left chest tube placement. Postoperative day #12 3 Squamous cell carcinoma of the left lung, status post robotically assisted left upper lobectomy with mediastinal lymph node dissection on 03/13/2020. 4 New-onset atrial fibrillation requiring Cardizem drip, currently in sinus rhythm 5 Moderate to severe chronic obstructive pulmonary disease with FEV1 value 72% of predicted 6 History of breast cancer status post left mastectomy 7 Carotid artery disease status post left carotid endarterectomy 8 History of chronic tobacco dependence 9 History of degenerative joint disease Plan: The patient was seen and evaluated by Dr. Shipman Chest x-ray and labs reviewed Continue antibiotics and bronchodilators Working well with the incentive spirometer Increase her activity as tolerated Possible discharge in the a.m. We will continue to follow and make further recommendations based on her clinical status I, the cosigning physician, performed a history & physical examination of the pa ramy. Lungs sounds with bilateral scattered rhonchi left greater than right. Maintaining good O2 saturations in the 90s on room air. I discussed the assessment and plan of care with my nurse practitioner, Arminda Owen. I attest to the above note as dictated by her.
[2020-04-10] MEDS ORDERED: diphenhydrAMINE 50 MG CAP PO PRN (16:39)
[2020-04-10] MEDS: ERTAPENEM 1 GM in SODIUM CHLORIDE 0.9% 50 ML IVPB SCH (16:44)
[2020-04-10 20:36] VITALS: RESP 16
--- NOTE | 2020-04-10 22:47 | PN ---
PROGRESS NOTE DATE OF SERVICE: 04/10/2020 REASON FOR FOLLOWUP: Left-sided empyema. INTERVAL HISTORY: Patient was seen on rounds this afternoon. The patient has been afebrile. She has been breathing comfortably. Patient denies having any chest pain. Occasional cough. No nausea. No abdominal pain or diarrhea. PHYSICAL EXAMINATION: Blood pressure 172/81 with a pulse of 83, temperature 98.1. She is 98% on room air. General description is an elderly female up in the chair in no distress. Respiratory system: Unlabored breathing, decreased breath sounds in the base, no wheeze. Heart S1, S2. Regular rate and rhythm. Abdomen soft, no tenderness. LABS: Hemoglobin is 8.5, white count 15.3, creatinine 0.46. DIAGNOSTIC IMPRESSION AND PLAN: Patient admitted to hospital with left-sided empyema in this patient with recent left upper lobectomy for squamous cell carcinoma. Patient is status post chest tube which has been discontinued and this patient seemed to have shown overall clinical improvement. She did have multiple antibiotic allergies and initial Gram stain did shows gram-negative , however he did not grow in culture The patient's antibiotic will be adjusted to Invanz 1 g daily after detailed discussion with the patient's nurse as well as the patient's daughter. That will be easier to administer in the outpatient setting as we are not able to use any other antibiotic. Other choice would have been Levaquin, could not be used because of the Amiodarone the patient is on. If the patient tolerates Invanz, plan is for a 10 day course of IV Invanz on discharge with a PICC line and close outpatient followup. MMODL / LEONARDN: [id number] / LEE
[2020-04-11] MEDS: PANTOPRAZOLE 40 MG TABLET PO SCH (06:20)
--- NOTE | 2020-04-11 07:35 | XR ---
EXAMINATION TYPE: XR chest 2V DATE OF EXAM: 04/11/2020 COMPARISON: 04/10/2020 INDICATION: Post left chest pleural YASMEEN removal. TECHNIQUE: Frontal and lateral views of the chest are obtained. FINDINGS: The heart size is normal. The pulmonary vasculature is normal. There is an air-fluid level within the right midlung. No pneumothorax is unchanged. Small left pleura l effusion is present. 2 catheters are present on the left. PICC line enters on the right with the ti p in the distal superior vena cava region.. There appears to be some improved aeration of the left IMPRESSION: 1. Persistent postsurgical changes left lung. Air-fluid level may have developed within the left midl efe.
[2020-04-11 08:26] LABS: Anisocytosis Slight; HCT 29.7 % (34.0-46.0); HGB 9.4 gm/dL (11.4-16.0); Hypochromasia Moderate; MCH 28.2 pg (25.0-35.0); MCHC 31.6 g/dL (31.0-37.0); MCV 89.3 fL (80.0-100.0); Mean Platelet Volume 6.1; Platelet Count 926 k/uL (150-450); RBC 3.32 m/uL (3.80-5.40); RDW 16.7 % (11.5-15.5); WBC 14.8 k/uL (3.8-10.6)
[2020-04-11] MEDS: ACETYLCYSTEINE 800 MG/4 ML VIAL INHALATION SCH ×2 (08:27→12:08)
[2020-04-11] MEDS: IPRATROPIUM-ALBUTEROL 3 ML NEB INHALATION SCH ×2 (08:28→11:51)
[2020-04-11 08:44] LABS: African American GFR (CKD) >90 (>60 ml/min/1.73 sqM); Anion Gap 7 mmol/L; Blood Urea Nitrogen 13 mg/dL (7-17); C Reactive Protein 52.2 mg/L (<10.0); Calcium 9.5 mg/dL (8.4-10.2); Carbon Dioxide 27 mmol/L (22-30); Chloride 103 mmol/L (98-107); Glucose 129 mg/dL (74-99); LDH 510 U/L (313-618); Non-African American GFR(CKD) >90 (>60 ml/min/1.73 sqM); Potassium 4.4 mmol/L (3.5-5.1); Sodium 137 mmol/L (137-145)
[2020-04-11] MEDS: MAGNESIUM OXIDE 400 MG TAB PO SCH (08:53)
[2020-04-11] MEDS: METOPROLOL TARTRATE 25 MG TAB PO SCH (08:54)
[2020-04-11] MEDS: CALCIUM CARB-VIT D 500 MG-5 MCG TAB PO SCH (08:54)
[2020-04-11] MEDS: guaiFENesin 600 MG TABLET.ER PO SCH (08:54)
[2020-04-11] MEDS: ZINC SULFATE 220 MG CAP PO SCH (08:54)
[2020-04-11] MEDS: AMIODARONE 200 MG TAB PO SCH (08:54)
[2020-04-11] MEDS: LETROZOLE 2.5 MG TAB PO SCH (08:55)
[2020-04-11] MEDS: HEPARIN SODIUM,PORCINE 5,000 UNIT/ML 1 ML VIAL SQ SCH (08:55)
[2020-04-11] MEDS ORDERED: CLOPIDOGREL 75 MG TAB PO SCH (09:00)
[2020-04-11] MEDS: VANCOMYCIN 1,250 MG in SODIUM CHLORIDE 0.9% 250 ML IVPB SCH (09:01)
--- NOTE | 2020-04-11 09:24 | P.DS ---
Providers Date of admission: 03/29/20 01:28 Expected date of discharge: 04/11/20 Attending physician: Harish Hurtado Consults: 03/29/20 01:07 Consult Physician Urgent Consulting Provider: [facility] Consult Reason/Comments: new onset A.Fib Do you want consulting provider notified?: Yes Consult Physician Urgent Consulting Provider: Kolton العلي Consult Reason/Comments: Left pleural effusion Do you want consulting provider notified?: Already Contacted 03/29/20 08:42 Consult Physician Routine Consulting Provider: Claudio Renteria Consult Reason/Comments: left pneumothorax Do you want consulting provider notified?: Already Contacted 03/30/20 12:41 Consult Physician Routine Consulting Provider: Saman Buchanan Consult Reason/Comments: Leukocytosis Do you want consulting provider notified?: Yes Primary care physician: [facility] Course: HISTORY OF PRESENT ILLNESS 69-year-old female one of Dr. 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 Patient also survival of rest cancer post left mastectomy in 2010 post chemotherapy also she is known to have history of carotid stenosis post left carotid endarterectomy in 2019 previous history of tobacco use she quit in February this year continue to have moderate COPD with FEV1 of 72 percentile history of hypertension hyperlipidemia. Patient left the hospital on March 17 after surgery was seen pulmonary and cardiothoracic surgery on regular basis she returned to the emergency department shortly after midnight today because of worsening dyspnea and shortness of breath with significant tachycardia according to patient she become more symptomatic with rapid ventricular response on and off become more symptomatic causing worsening shortness of breath. Was seen and evaluated demurs department her white blood cell was 18.5 hemoglobin 10.5 hematocrit 32.9 d-dimer was 2.48 patient COVID 19 testing was negative she found to be in A. fib with RVR pulse 153 beats per minutes cardiology were called along with cardiothoracic patient chest x-ray showed pleural effusion and pneumothorax of the left side. She was started on Cardizem drip brought the pulse rate down no anticoagulation was started this point patient was on Plavix since her carotid surgery and no previous history of A. fib her pulse rate used to be well controlled on Coreg 6.25 mg twice a day in the past. Patient will be going to the OR by cardiothoracic and she will have more repair along with chest tube as well. 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 Patient will be back to the ICU after surgery. 03/31: Patient evaluated in the ICU this morning, sitting up in the bedside chair, in no acute distress. She is postop day #1 status post left posterior lateral thoracotomy, closure of the bronchopleural fistula, and cryoablation of the intercostal nerves. Patient still has 2 left-sided chest tubes in place, she continues on Levaquin, vancomycin, and Aztreonam. Cultures are still pending, infectious disease on consult. Repeat chest x-ray shows residual left pneumothorax and left perihilar consolidation. Vital signs are stable, she is afebrile 98.0, heart rate is 90, respiratory 23, temperature 128/57, she's 95% on 3 L via nasal cannula. 04/01: Patient evaluated in the ICU, sitting up in the bedside chair. Nurse states she went to stand patient up to get her out of bed and she had a syncople episode. She was noted to be hypotensive 63/37 and tachycardic with a heart rate of 111. Stat CBC and repeat chest x-ray ordered, patient placed back in bed blood, pressure did come up to 99/47, heart rate 90. Hemoglobin 7.7, platelets 729, sodium 130, creatinine 0.51, BUN 16. Left pleural chest tube in place, left pleural YASMEEN drain in place and continues to drain serosanguineous drainage, left lateral chest YASMEEN drains [address] with bulb suction. Repeat chest x-ray showed some improvement of aeration throughout the remaining left lung post lobectomy, pneumothorax remains. 04/02: Patient remains in the ICU. Patient had chest CT yesterday which showed chest wall herniation causing increase opacity in the left midlung at the third through fourth intercostal space. Large size hematoma in the posterior lateral lower thoracic chest and subcutaneous tissue. Patient's hemoglobin dropped to 6.1 she did receive 2 units of packed red blood cells, hemoglobin went up to 8.4 after the transfusion and dropped to 7.8 this morning. Clinically patient looks much better today, reports she is feeling much better as well. She is off supplemental oxygen and currently 94%, continue to use incentive spirometer, chest tubes remain in place. 04/03: Patient examined in the ICU. Patient was up walking in the justin yesterday and is doing well. Patient has left pleural chest tube and 2 YASMEEN drains to continuous suction with air leaks. She continues on Levaquin, vancomycin and Aztreonam per infectious disease. Hemoglobin stable, 7.9 this morning, WBC 14.2, sodium 133, BUN 8, creatinine 0.39. She remains afebrile, vital signs are stable she is 97% on 2 L via nasal cannula. Patient did have multiple episodes of paroxysmal atrial fibrillation last night, cardiology is on consult. Cardiology did increase her dose of Coreg to 12.5 twice a day, currently she is rate controlled and converted back to normal sinus rhythm. 04/04 2020: Patient remain in the ICU, still have chest tube in, there is a quite possibility might have pneumothorax and slight leak around the chest tube area a chest x-ray still pending at this point, patient still seen pulmonary and cardiothoracic might need another chest tube or adjustment of her current chest tube area. He'll otherwise pain is under control currently patient is hemodynamically stable. 04/05 2020 patient examined sitting comfortably in the chair. Complains of epigastric tenderness and burning in her chest. The patient denies any chest pain, shortness of breath dizziness or lightheadedness. She does have pain around her chest tube on the left but denies any cough or breathing difficulty. Patient evaluated by neurology with no plan to adjust the chest tubes. Chest x- ray was repeated with stable left pleural area collection and mild lung volume loss along with small to moderate left pleural fluid collection. Vitals are stable temperature of 98.1 pulse 77 and respiratory rate 16 blood pressure 139/72 oxygen saturation 96% on room air. Patient had persistent leukocytosis of 16.7 hemoglobin stable at 8.8 Creatinine 0.41 glucose is stable at 124. Patient stable on bronchodilators and aztreonam and Levaquin. For culture and wound cultures are negative. 04/06 patient examined sitting comfortably in the chair. Denies any epigastric tenderness or shortness of breath. Patient denies any chest pain, dizziness lightheadedness, fatigue. She denies any change in bowel habits or diarrhea or constipation. Patient does have some pain around the chest tube which is controlled with medication. Left pleural chest tube and 2 YASMEEN drains continued to suction with continuous air leak present and chest tube. Vitals are stable with a pulse of 93 respiratory rate 19 and blood pressure 136/87 oxygen saturation 92% on room air. On evaluation the patient's blood pressure today continues to have leukocytosis of 16.4 hemoglobin 8.3 platelet 903. Sodium remains at 133 creatinine 0.4. Continue amiodarone at 400 twice a day. Patient continues to remain in normal sinus rhythm. Patient continues to be on aztreonam and Levaquin. anidulafungin was added due to persistent leukocytosis. 04/07: Patient is seen today in the intensive care unit. 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 She remains with a chest tube in place as well as 2 YASMEEN drains. A PICC line has been ordered for today for IV antimicrobials. Patient is currently on Eraxis, Levaquin and Azactam. Patient's pulse ox see 92% on room air. She is reaching 750 on incentive spirometry. She has been afebrile, heart rate in the 70s, blood pressure 115/64. can handler is a sinus rhythm. Repeat blood work reveals WBC 17.6, hemoglobin 8.2, platelet count 889. Sodium 134 otherwise electrolytes are normal, creatinine 0.5. Blood sugar 104. Repeat chest x-ray reveals continued small to moderate left effusion and possible loculated pneumothorax on the left. Apical component is not as well as seen and estimated at 6 mm versus 1.5 cm earlier today. 2 pleural drains remain in the left side. Patient is multiple consultations in place including cardiothoracic surgery, ovary medicine, infectious disease. Cardiology is following on an as-needed basis. Discharge plan is tentatively home with VNA and IV antibiotics through [facility]. 04/08: Patient remains in intensive care unit and waiting for a bed on the cardiac stepdown unit. She states her breathing is better today. Patient is seen sitting in a recliner and appears to be comfortable. chest tube 1, YASMEEN drain 2. Pulse ox 95% on room air, on recheck was 88 on room air. She has been afebrile, heart rate 80, blood pressure 147/71. Patient had a midline placed yesterday. Hemoglobin 8.4, WBC 16, platelet count 952. Sodium 136, potassium 4.4, chloride 103, CO2 31, BUN 14 and creatinine 0.47. Repeat chest x-ray reveals stable left pneumothorax. Left chest tubes in place. 04/09: The patient is seen today on the cardiac stepdown unit. Patient states that her breathing is much improved since admission. She states her appetite is okay and she is waiting for oatmeal which is been ordered. She complains of a cough with occasional production after updraft treatments. She has been afebrile, heart rate 72, blood pressure 125/88, pulse ox 98% on room air. WBC 15.6, hemoglobin 8.3, platelet count 998. Electrolytes normal. Creatinine 0.51. Repeat chest x-ray reveals improved left-sided pleural air collection with stable small to moderate size left basilar pleural fluid collection with adjacent atelectasis and/or infiltrate. Patient remains on vancomycin, Azactam, and Eraxis. 04/10: The patient is sitting up in recliner. She had appears to have no acute respiratory distress. Daughter is on the phone on speaker. can handler is been a sinus rhythm. Pulse ox 97% on room air. Afebrile, blood pressure 132/61. Repeat blood work reveals WBC 15.3, hemoglobin 8.5, platelet 923. Sodium 136, potassium 4.5, chloride 105, CO2 28, BUN 16 and creatinine 0.46. Blood sugar 98. Repeat chest x-ray reveals small left pleural effusion. Left chest tube with diminished pneumothorax. Dr. Buchanan to clarify antibiotics and possible discharge home tomorrow. 04/11: Dr. Buchanan has recommended Invanz for 10 day course following discharge. Patient has PICC line in place. Chest tube removed yesterday. She has YASMEEN drains in place. Patient states that she is feeling great today and is anxious to go home. Daughter is on the phone and all questions have been answered. She has been afebrile, heart rate 72, blood pressure 150/69, pulse ox 97% on room air. WBC 14.8, hemoglobin 9.4, platelet count 926. Electrolytes normal. Creatinine 0.45. C-reactive protein 52.2 and sed rate 3. Cardiothoracic has cleared the patient to resume Plavix which was started today. Patient will be discharged home today in stable condition. ASSESSMENT AND PLAN 1. New onset of A. fib with RVR, paroxysmal atrial fibrillation. 2. Empyema left chest with bronchopleural fistula status post bronchoscopy with left chest tube placement with post exploratory thoracotomy with cryoablation of the intercostal nerve of L2 through 6. Reinforcement of bronchopleural fistula closure and modification of the left pleural space was done. 3. Squamous cell carcinoma of the left upper lobe: Post robotic-assisted left upper lobectomy with no dissection and repair of left main bronchus on 03/13 pathology suggestive of T2 b, N0, M0 4. COPD 5. PAD: Post left carotid endarterectomy 6. History of breast cancer post left-sided mastectomy and chemotherapy has been in remission. 7. Hypertension 8. Generalized anxiety disorder and panic attacks. 9. Mild aof chronic disease. 10. Hypoglycemia: On diet control. DISCHARGE PLAN Home with VNA and IV antibiotics through [facility]. Impression and plan of care have been directed as dictated by the signing physician. Lucy Bee nurse practitioner acting as scribe for signing physician. Patient Condition at Discharge: Stable Plan - Discharge Summary Discharge Rx Participant: No New Discharge Prescriptions: New Amiodarone [Cordarone] 200 mg PO BID #60 tab Ertapenem [INVanz] 1 gm IVPB DAILY@1600 #10 vial Metoprolol Tartrate [Lopressor] 25 mg PO BID #60 tab Magnesium Oxide [Mag-Ox] 200 mg PO DAILY tab guaiFENesin [Mucinex] 1,200 mg PO Q12HR@0900,1900 tablet.er Pantoprazole [Protonix] 40 mg PO AC-BRKFST #30 tablet.dr Trinidadnosideangelo-Docusate Sodium [Senokot-S] 2 each PO HS PRN tab PRN Reason: Constipation Continue Letrozole [Femara] 2.5 mg PO DAILY Clopidogrel [Plavix] 75 mg PO DAILY HYDROcodone/APAP 5-325MG [Talmage 5-325] 1 tab PO Q6H PRN PRN Reason: Pain Albuterol Nebulized [Ventolin Nebulized] 2.5 mg INHALATION RT-QID PRN PRN Reason: Shortness Of Breath traMADol HCL 50 mg PO Q6H PRN PRN Reason: Pain Discontinued LORazepam [Ativan] 0.5 mg PO HS PRN PRN Reason: Anxiety carvediloL [Coreg] 6.25 mg PO BID Discharge Medication List Letrozole [Femara] 2.5 mg PO DAILY 07/30/17 [History] Clopidogrel [Plavix] 75 mg PO DAILY 01/30/19 [History] Albuterol Nebulized [Ventolin Nebulized] 2.5 mg INHALATION RT-QID PRN 03/29/20 [History] HYDROcodone/APAP 5-325MG [[place]mage 5-325] 1 tab PO Q6H PRN 03/29/20 [History] traMADol HCL 50 mg PO Q6H PRN 03/29/20 [History] Amiodarone [Cordarone] 200 mg PO BID #60 tab 04/11/20 [Rx] Ertapenem [INVanz] 1 gm IVPB DAILY@1600 #10 vial 04/11/20 [Rx] Magnesium Oxide [Mag-Ox] 200 mg PO DAILY tab 04/11/20 [Rx] Metoprolol Tartrate [Lopressor] 25 mg PO BID #60 tab 04/11/20 [Rx] Pantoprazole [Protonix] 40 mg PO AC-BRKFST #30 tablet. 04/11/20 [Rx] Sennosides-Docusate Sodium [Senokot-S] 2 each PO HS PRN tab 04/11/20 [Rx] guaiFENesin [Mucinex] 1,200 mg PO Q12HR@0900,1900 tablet.er 04/11/20 [Rx] Follow up Appointment(s)/Referral(s): Dino Shipman MD [STAFF PHYSICIAN] - 04/16/20 2:00 pm Abdi Robles MD [STAFF PHYSICIAN] - 04/17/20 10:30 am [facility] [NON-STAFF] - (NEEDS to be set up prior to dc) Elvin Mcclain DO [Primary Care Provider] - 1 Week (The office support associate will call you with the next available appointment.) Saman Buchanan MD [STAFF PHYSICIAN] - 04/22/20 11:00 am [facility] Visiting Nurse, [NON-STAFF] - Patient Instructions/Handouts: A-fib (Atrial Fibrillation) (DC), Pleural Effusion (DC) Discharge Disposition: HOME WITH HOME HEALTH SERVICES
--- NOTE | 2020-04-11 09:47 | P.PN ---
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 Past medical history si gnificant for squamous cell carcinoma of the left lung status post robotically assisted left upper lobectomy with mediastinal lymph node dissection and repair of left main bronchus on 03/13/2020, pathology showed T2b, N0, M0, history of breast cancer status post left mastectomy, moderate to severe chronic restrictive pulmonary disease with a recent FEV1 value 72% of predicted value, history of left carotid stenosis status post left carotid endarterectomy in 2019, history of chronic tobacco dependence quit smoking in February 2020, history of degenerative joint disease. POD #12 Left posterior lateral thoracotomy, mobilization of latissimus muscle flap, exploratory thoracotomy through the fourth intercostal space, closure of bronchopleural fistula, decortication of left pleural space and portion of the left lower lobe, cryoablation of intercostal nerves L2 through L6, reinforcement of the bronchopleural fistula closure and modification in the left pleural space with the latissimus dorsi flap. POD #13 Fiberoptic bronchoscopy, left chest tube placement. Postoperative acute blood loss anemia, expected, dilutional. The patient was seen in follow-up today 04/11/2020 at her bedside on the cardiac stepdown unit. Currently the patient is laying in bed, is awake, alert and oriented 3. Denies any complaints of pain or shortness of breath at this time. Her left pleural YASMEEN tube was discontinued yesterday without incident. Oxygen saturation are 96% on room air and she is achieving 1250 mL on her incentive spirometry with encouragement. Left chest wall YASMEEN drains [address] with scant serosanguineous drainage, 10 mL output from the YASMEEN drains in the last 8 hours. She reports she has been up ambulating in the cardiac stepdown unit hallway with minimal assistance from therapy staff and nursing staff. She is tolerating oral intake. Right arm PICC line in place. Currently she is on INVanz and vancomycin for antibiotic coverage which is managed by infectious disease. All of her cultures during her hospital stay have shown no growth. She remains afebrile. The patient's daughter Mike has been updated on her care and her questions were answered to the best of my ability. Objective - Vital Signs Vital signs: Vital Signs Temp 97.5 F L 04/11/20 03:33 Pulse 78 04/11/20 08:43 Resp 16 04/11/20 03:33 BP 146/67 04/11/20 03:33 Pulse Ox 97 04/11/20 03:33 Intake & Output 04/10/20 04/11/20 04/11/20 18:59 06:59 18:59 Intake Total 490 120 110 Output Total 620 2140 Balance -130 -2019 110 Weight 62.1 kg 61.6 kg Intake: IV 240 Anidulafungin 100 mg In 100 Sodium Chloride 0.9% 100 ml @ 84 mls/hr IVPB DAILY [facility] Rx#:[id number] Aztreonam 2 gm In Sodium 100 Chloride 0.9% 100 ml @ 33 .3 mls/hr IVPB Q8HR [facility] Rx#:[id number] Sodium Chloride 0.9% 1, 40 000 ml @ 20 mls/hr IV . Q24H [facility] Rx#:[id number] Intake, IV Titration 250 Amount Vancomycin 1,250 mg In 250 Sodium Chloride 0.9% 250 ml @ 125 mls/hr IVPB Q8HR [facility] Rx#:[id number] Oral 120 110 Output: Chest Tube Drainage 20 40 Chest tube #2 Anterior 0 YASMEEN drain labeled #1 10 20 Posterior YASMEEN drain labeled #2 10 20 Anterior Urine 600 2100 Other: Voiding Method Toilet Toilet # Voids 3 # Bowel Movements 0 ABP, PAP, CO, CI - Last Documented Arterial Blood Pressure 141/53 - Constitutional General appearance: Present: average body habitus, cooperative, no acute distress - EENT Eyes: Present: normal appearance. Absent: scleral icterus - Neck Details: Neck is supple, no JVD, no lymphadenopathy. - Respiratory Details: Lung sounds essentially clear throughout, diminished to her left upper lobe. No wheezes, rhonchi or crackles. Respirations are symmetrical and nonlabored. Oxygen saturation is 96% on room air. Achieving 1250 mL on her incentive s pirometry with encouragement. Left chest wall YASMEEN drains remain in place with bulb SUCTION. Draining thin serosanguineous drainage with 10 mL output from each drain in the last 8 hours and 30 mL from each drain in the last 24 hours. - Cardiovascular Details: Regular rhythm and rate. S1 and S2 present, negative for S3, gallop or murmur. Remote telemetry showing normal sinus rhythm heart rate 72. No edema present. Knee-high EULOGIO hose and sequential compression devices in place to bilateral lower extremities. - Gastrointestinal Gastrointestinal Comment(s): Abdomen is soft, nontender and nondistended. Active bowel sounds present in all 4 abdominal quadrants. No guarding or rigidity. Tolerating oral intake. - Genitourinary Genitourinary Comment(s): Continues to void. - Neurologic Neurologic: Present: CNII-XII intact - Musculoskeletal Musculoskeletal: Present: gait normal, strength equal bilaterally - Psychiatric Psychiatric: Present: A&O x's 3, appropriate affect, intact judgment & insight - Allied health notes Allied health notes reviewed: nursing - Labs CBC & Chem 7: 04/11/20 07:56 04/11/20 07:56 Labs: Abnormal Lab Results - Last 24 Hours (Table) 04/11/20 04/11/20 Range/Units 07:56 07:56 WBC 14.8 H (3.8-10.6) k/uL RBC 3.32 L (3.80-5.40) m/uL Hgb 9.4 L (11.4-16.0) gm/dL Hct 29.7 L (34.0-46.0) % RDW 16.7 H (11.5-15.5) % Plt Count 926 H (150-450) k/uL Creatinine 0.45 L (0.52-1.04) mg/dL Glucose 129 H (74-99) mg/dL C-Reactive Protein 52.2 H (<10.0) mg/L - Imaging and Cardiology Chest x-ray: report reviewed, image reviewed Assessment and Plan Assessment: 1. Empyema left chest with bronchopleural fistula, status post left upper lobectomy, status post left posterior lateral thoracotomy, mobilization of latissimus muscle flap, closure of bronchopleural fistula, decortication of left pleural space and portion of the left lower lobe, reinforcement of the buccal pleural fistula closure and modification of the left pleural space with latissimus dorsi flap 2. New onset atrial fibrillation with RVR, currently in normal sinus rhythm 3. Leukocytosis secondary to empyema 4. Squamous cell carcinoma left upper lobe lung, status post robotic-assisted left upper lobectomy on 03/13/2020, pathology showing T2b, N0 M0 5. Hypertension 6. Moderate to severe chronic obstructive pulmonary disease with a recent FEV1 72% of predicted value 7. History of carotid stenosis, status post left carotid endarterectomy in 2019 8. Previous chronic tobacco dependence quit smoking in February 2020 9. History of breast cancer, status post left mastectomy 10. History of degenerative joint disease 11. Postoperative acute blood loss anemia, expected, dilutional Plan: 1. Encourage use of her incentive spirometry 10 times every hour while awake. 2. Bronchodilator management per pulmonary /critical care management. 3. Continue beta lupillo and amiodarone for atrial fibrillation prophylaxis. 4. Continue to monitor daily labs and chest x-rays. 5. GI and DVT prophylaxis. 6. Continue to reinforce the importance of continued smoking cessation. 7. Continue left chest wall YASMEEN drains to bulb suction. 8. Pain control per current when necessary orders. 9. Antibiotic management per infectious disease recommendations, currently on vancomycin and INVanz for antibiotic coverage. Remains afebrile. 10. Increase activity as tolerated. Out of bed for all meals. Physical and occupational therapy following. 11. Anticipate discharge home today with home health care in place. Discharge planning is in place. 12. Restart Plavix 75 mg by mouth daily per her home dose. 13. More recommendations to follow based on patient's clinical course. Time with Patient: Greater than 30
[2020-04-11 09:52] LABS: Erythrocyte Sedimentation Rate 3 mm/hr (0-20)
[2020-04-11 10:42] VITALS: BP 150/69; TEMP 97.9
[2020-04-11 12:06] VITALS: PULSE 76
--- NOTE | 2020-04-11 12:08 | P.PN ---
Subjective Progress Note Date: 04/11/20 Principal diagnosis: Large left pneumothorax, new onset atrial fibrillation On 03/31/2020 the patient is being seen for a follow-up. 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 The patient was taken to the operating room approximately 2 weeks ago and the patient underwent a robotic-assisted left upper lobe resection. Postop, the patient was discharged home to be readmitted back to the hospital rule out empyema and air-fluid levels in the left chest along with a new onset atrial fibrillation and elevated white cell count. 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 A lesser the chest tube was placed at a time and drained turbid fluid. Gram stain was positive for gram-negative rods. Subsequently, the patient was taken back to the operating room and the patient underwent a thoracotomy and closure of a bronco pleural fistula with a muscle flap. The patient underwent a left posterior lateral thoracotomy, mobilization of the latissimus muscle flap, exploratory thoracotomy through the fourth int ercostal space, closure of the bronchopleural fistula and decortication of the left pleural space and portion of the left lower lobe and cryo-ablation of the intercostal nerves II through through L6 was done and reinforcement of the fistula was done and modification of the left pleural space with latissimus dorsi flap. The patient intraoperatively was found to have an empyema of the left chest as mentioned. Postop, the patient was extubated and the patient was brought back to the intensive care unit for further monitoring. She was placed on oxygen at 3 L about 2 by nasal cannula. There was a left-sided chest tube in place with a Pleur-evac and there were also 2 YASMEEN drains within the pleural space. The patient was being covered with broad-spectrum antibiotics including a combination of Levaquin, aztreonam and vancomycin pending further cultures from the pleural space. The patient was on tramadol 50 mg every 6 hours when necessary basis for pain control. The patient is also on Vinemont 53 25 one tablet every 4-6 hours on a when necessary basis for pain control. The patient recovered from the atrial fibrillation and the patient is currently in sinus rhythm. Cardizem drip has been discontinued and the patient was placed on Coreg 6.25 mg by mouth twice a day. She is on heparin subcu for DVT prophylaxis. IV fluids running at 40 mL an hour of normal saline. Chest x-ray revealed a pleural air fluid levels/pneumothorax and the left upper chest area measuring 2.1 cm in size. A small left-sided pleural effusion/consolidation of the left lung base. There were 2 drains within the pleural space in addition to surgical changes are thoracotomy. The patient has a right IJ triple-lumen catheter in place. Liver output, the chest tube has put out approximately 20 mL over the p ast 24 hours and there is no evidence of any air leak. As for the YASMEEN drains,one in the pleural space and drained approximately 450 over the past 24 hours. Whereas the other YASMEEN drains are present in her lap and drained 60 mL and 20 mL over the past 12 hours. She is awake and alert. She is using incentive spirometer. She is afebrile. Hemodynamically stable. She is on no pressors. IV fluids are running at the rate of 40 mL an hour. She is tolerating her diet. Today's evaluation of 04/01/2020, the patient is being seen for a follow-up. The patient is doing essentially the same as yesterday. She is using incentive spirometer and she is pulling approximately 800 mL on her I asked. The patient had a follow-up chest x-ray today that showed no major interval change compared to yesterday's chest x-ray. I do not appreciate any pneumothorax. All of the drains in the tubes are still in place. Note that the patient has a regular posterior chest to talk with of which has been minimal in the order of 10 mL over the past 24 hours and it's still has some minimal amount of intermittent air leak. The YASMEEN drains in the flap is in order of 250 mL in the anterior pain and 125 in the posterior drain over the past 8 hours. His another third drain in the pleural space output of which is still 120 mL over the past 24 hours. Cultures still pending for now. There is gram-negative bacteria. The patient remains on a combination of Levaquin, aztreonam and vancomycin. Surgical wound site is dry clean and intact. The patient has some swelling along the left posterior chest area at the surgical sites. No hematoma collection. She has a congested cough. Unable to bring up much sputum. She is afebrile. Her white cell count has dropped and the count is down to 15. The patient remains on normal saline at the rate of 100 mL an hour. He was having a low urine output in the order of 10-20 mL yesterday and this is improved with the increase the fluid rates. Creatinine is stable for now. Her pain is under adequate control and she is on Vinemont. She has received cryoablation. She is postop day #2. Cardiac rhythm is sinus. There is no atrial fibrillation. The patient is off all drips and she is utilizing Coreg for rate control. The patient is seen today 04/02/2020 in follow-up in the intensive care unit. She is currently sitting up in bed. Awake and alert in no acute distress. She is maintaining good O2 saturations in the 90s on room air now. 0.9 normal sitting in 100 ML's per hour. She is postoperative day #3 of a left thoracotomy with deep decortication and muscle flap. Computed tomography scan of the chest yesterday revealed postsurgical changes of the left lung. 2 left-sided chest tubes in pleural spaces containing a small amount of residual fluid. There is a chest wall herniation causing increased opacity in the left midlung at the third to fourth intercostal space. Note is made of moderate to large sided organizing hematoma in the posterior lateral left thorax thoracic chest wall and subcutaneous tissue. Today's chest x-ray reveals chest tubes in place. Extensive pleural parenchymal opacities persist throughout the left hemithorax. A loculated component along the lateral mid lung may be slightly decreased in size. She is status post 2 units of packed red blood cells this admission. Current hemoglobin 7.8. White count 15.7. Sodium 133. Potassium 4.2. Creatinine 0.43. She remains on bronchodilators, antibiotics in the form of aztreonam, vancomycin, Levaquin. The patient is seen today 04/03/2020 in follow-up in the intensive care unit. Postoperative day #4. She is awake and alert in no acute distress. Currently sitting up in bed. Maintaining good O2 saturation in the 90s on 2 L/m per nasal cannula. 0.9 normal saline at 30 mL per hour. Chest x-ray shows significant subcutaneous emphysema, rounded opacity within the left peripheral midlung. Improving infiltrates in the left lung field. No evidence of pneumothorax. 2 left-sided catheters remain in place. She is working well with the incentive spirometer. She is status post 2 units of packed red blood cells this admission. Current hemoglobin 7.9. Thoracic fluid cultures revealed no growth. Wound cultures reveal no growth. Pathology findings revealed fibrin debris with acute and chronic inflammation and a few reactive mesothelial elements. Negative for neoplasm. White count 14.2. Sodium 133. Potassium 2.9. Creatinine 0.39. Continues on bronchodilators, aztreonam, Levaquin. Heparin for DVT prophylaxis. Patient is seen today 04/04/2020 in follow-up in the intensive care unit. Postoperative day #5. She is sitting up in a chair at the bedside. Awake and alert in no acute distress. She denies any worsening shortness of breath, cough or congestion. She is maintaining O2 saturation the 90s on room air. 0.9 normal saline at 30 MLS per hour. She did have a brief episode of atrial fibrillation with a rapid ventricular response last night. She's had some episodes of hypotension. Her Coreg was discontinued and she was started on low- dose metoprolol. Chest x-ray reveals postsurgical changes the left lung ray demonstrated. Improved left sided pleural air collection on the current study and improved left-sided volume loss. Some question of possible left-sided pneumothorax. YASMEEN drain remains to low continuous wall suction. Chest tube was placed to waterseal. White count 16.9. Hemoglobin 8.2. Sodium 133. Potassium 4.0. Creatinine 0.40. She remains on bronchodilators. Working well with the incentive spirometer. Antibiotics in the form of aztreonam and Levaquin. The patient is seen today 04/05/2020 in follow-up in the intensive care unit. Postoperative day #6. She is currently sitting up in a chair at the bedside. Awake and alert in no acute distress. She denies any worsening shortness of breath, cough or congestion. No hemoptysis. Currently maintaining O2 saturations in the 90s on room air. She has a 0.9 normal saline at 10 MLS per hour. Amiodarone drip at 0.5 mg/m. No recent arrhythmias. Currently in normal sinus rhythm. Left pleural chest tube and 2 YASMEEN drains remain in place to continue continuous suction with a continuous air leak and the atrium. Chest x- ray reveals postsurgical changes in the left lung ray demonstrated. Stable small sized left pleural air collection on current study and mild left volume loss along with stable small to moderate size left basilar pleural fluid col lection. No new infiltrates seen. She is status post 2 units of packed red blood cells this admission. Current hemoglobin 8.8. Fluid cultures and wound cultures reveal no growth. White count 16.7. Sodium 134. Potassium 3.9. Creatinine 0.41. She remains on bronchodilators, aztreonam and Levaquin. The patient is seen today 04/06/2020 in follow-up in the intensive care unit. She is currently up in a chair at the bedside. Awake and alert in no acute distress. This is postoperative day #7. She is maintaining good O2 saturations in the 90s on room air. She has 0.9 normal saline at 30 MLS per hour. She has YASMEEN drains and a chest tube still in the left chest which are to wall suction. Chest x-ray continues to show stable small sized left sided pleural air collection and current study with chest tubes in place mid left-sided volume loss along with stable small to moderate left-sided pleural fluid. No new infiltrates. Bronchial wash cultures and fluid cultures reveal no growth. White count 16.4. Hemoglobin 8.3. Platelets continue to rise at 903,000. Sodium 133. Potassium 4.1. Creatinine 0.42. She remains on Levaquin and aztreonam. Continued on Eraxis. Heparin for DVT prophylaxis. The patient is seen today 04/09/2020 in follow-up on the selective care unit. She is currently sitting up in a chair at the bedside. Awake and alert in no acute distress. Separate day #10. YASMEEN drains a left-sided chest tube remains in place. Currently to waterseal, off suction. She is maintaining good O2 saturations in the 90s on room air. Pulling approximately 1 L on her incentive spirometer. Chest x-ray revealed evidence of improved left-sided pleural air collection with stable mild left-sided volume loss along with stable small to moderate sized left basilar pleural fluid collection and adjacent atelectasis and/or infiltrate. No new infiltrate is seen. Remains on vancomycin, aztreonam and Levaquin. Remains on Eraxis. Heparin for DVT prophylaxis. The patient is seen today 04/10/2020 in follow-up on the selective care unit. She is currently awake and alert and doing well. She is sitting up in a chair at the bedside. Her chest tube has been removed. Follow-up chest x-ray reveals a small pneumothorax stable compared to previous. Subcutaneous emphysema is diminishing. 2 right-sided YASMEEN drains remain. Maintaining good O2 saturations up to 99% on room air. She's afebrile. Hemodynamically stable. White count 15.3. Hemoglobin 8.5. Sodium 136. Potassium 4.5. Creatinine 0.46. Thoracic fluid, bronchial wash, sputum cultures all reveal no growth. She is continued on DuoNeb inhalations, antibiotics in the form of vancomycin, aztreonam, along with Eraxis. The patient is seen today 04/11/2020 in follow-up on the selective care unit. She is awake and alert in no acute distress. Sitting up in a chair. On room air with good O2 saturations in the mid 90s. Afebrile. Chest x-ray shows persistent postsurgical changes the left lung. Air-fluid level may have developed within the left midlung. [address] PICC line on the right. Sputum, wound, thoracic fluid and bronchial wash cultures all reveal no growth. White count 14.8. Hemoglobin 9.4. Sodium 137. Potassium 4.4. Creatinine 0.45. Remains on bronchodilators, ertapenem, vancomycin. Objective - Vital Signs Vital signs: Vital Signs Temp 97.9 F 04/11/20 08:00 Pulse 74 04/11/20 11:54 Resp 16 04/11/20 08:00 BP 150/69 04/11/20 08:00 Pulse Ox 97 04/11/20 08:00 Intake & Output 04/10/20 04/11/20 04/11/20 18:59 06:59 18:59 Intake Total 490 120 110 Output Total 620 2140 Balance -130 -2019 110 Weight 62.1 kg 61.6 kg Intake: IV 240 Anidulafungin 100 mg In 100 Sodium Chloride 0.9% 100 ml @ 84 mls/hr IVPB DAILY [facility] Rx#:[id number] Aztreonam 2 gm In Sodium 100 Chloride 0.9% 100 ml @ 33 .3 mls/hr IVPB Q8HR [facility] Rx#:[id number] Sodium Chloride 0.9% 1, 40 000 ml @ 20 mls/hr IV . Q24H [facility] Rx#:[id number] Intake, IV Titration 250 Amount Vancomycin 1,250 mg In 250 Sodium Chloride 0.9% 250 ml @ 125 mls/hr IVPB Q8HR [facility] Rx#:[id number] Oral 120 110 Output: Chest Tube Drainage 20 40 Chest tube #2 Anterior 0 YASMEEN drain labeled #1 10 20 Posterior YASMEEN drain labeled #2 10 20 Anterior Urine 600 2100 Other: Voiding Method Toilet Toilet Toilet # Voids 3 # Bowel Movements 0 ABP, PAP, CO, CI - Last Documented Arterial Blood Pressure 141/53 - Exam GENERAL EXAM: Alert, pleasant 69-year-old female patient, up in a chair at the bedside, on room air, fairly comfortable in no apparent distress. HEAD: Normocephalic. EYES: Normal reaction of pupils, equal size. NOSE: Clear with pink turbinates. THROAT: No erythema or exudates. NECK: No masses, no JVD. CHEST: Left-sided YASMEEN drains x [address] LUNGS: Equal air entry with bilateral scattered rhonchi more so on the left lung CVS: S1 and S2 normal with no audible murmur, regular rhythm. ABDOMEN: No hepatosplenomegaly, normal bowel sounds, no guarding or rigidity. SPINE: No scoliosis or deformity SKIN: No rashes CENTRAL NERVOUS SYSTEM: No focal deficits, tone is normal in all 4 extremities. EXTREMITIES: There is no peripheral edema. No clubbing, no cyanosis. Peripheral pulses are intact. 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 Status post Left posterior lateral thoracotomy, mobilization of latissimus muscle flap, exploratory thoracotomy through the fourth interspace, closure of bronchopleural fistula, decortication of left pleural space and portion of the left lower lobe, cryoablation of intercostal nerves L2 through L6, reinforcement of the bronchopleural fistula closure and modification in the left pleural space with the latissimus dorsi flap. Post operative day #12. Remains on antibiotics in the form of vancomycin, ertapenem 2 Bronchopleural fistula, left upper lobe apical stump status post fiberoptic bronchoscopy, left chest tube placement. Postoperative day #13 3 Squamous cell carcinoma of the left lung, status post robotically assisted left upper lobectomy with mediastinal lymph node dissection on 03/13/2020. 4 New-onset atrial fibrillation requiring Cardizem drip, currently in sinus rhythm 5 Moderate to severe chronic obstructive pulmonary disease with FEV1 value 72% of predicted 6 History of breast cancer status post left mastectomy 7 Carotid artery disease status post left carotid endarterectomy 8 History of chronic tobacco dependence 9 History of degenerative joint disease Plan: The patient was seen and evaluated by Dr. Shipman Chest x-ray and labs reviewed Working well with the incentive spirometer Antibiotics per ID services Home today, follow-up in the office in 1-2 weeks' I, the cosigning physician, performed a history & physical examination of the patient. Lungs sounds with bilateral scattered rhonchi left greater than right. Maintaining good O2 saturations in the 90s on room air. I discussed the assessment and plan of care with my nurse practitioner, Arminda Owen. I attest to the above note as dictated by her.
[2020-04-11] MEDS: ERTAPENEM 1 GM in SODIUM CHLORIDE 0.9% 50 ML IVPB SCH (12:19)
--- NOTE | 2020-04-11 14:51 | P.PN ---
Progress Note - Text Progress Note Date: 04/11/20 REASON FOR FOLLOWUP: Left-sided empyema. INTERVAL HISTORY: Patient has been afebrile. The patient is breathing comfortably. Patient denies having any chest pain. Occasional cough. No nausea. No abdominal pain or diarrhea. Patient tolerated Invanz without any problems PHYSICAL EXAMINATION: Blood pressure 170/80 with a pulse of 80, temperature 98.1. She is 98% on room air. General description is an elderly female up in the chair in no distress. Respiratory system: Unlabored breathing, decreased breath sounds in the base, no wheeze. Heart S1, S2. Regular rate and rhythm. Abdomen soft, no tenderness. LABS: White count is down to 14.3 DIAGNOSTIC IMPRESSION AND PLAN: Patient admitted to hospital with left-sided empyema in this patient with recent left upper lobectomy for squamous cell carcinoma. Patient is status post chest tube which has been discontinued and this patient seemed to have shown overall clinical improvement. She did have multiple antibiotic allergies and initial Gram stain did shows gram-negative , however he did not grow in culture, patient has tolerated Invanz Patient continued further 2 weeks and close outpatient follow-up, weekly labs
[2020-04-11] MEDS ORDERED: VANCOMYCIN TROUGH DUE 1 EACH MISC MISCELLANE ONE (15:00)
== END 2020-04-11 13:40 | disposition home health service (06) | DRG 164 ==
LOC: EC 23:14 → 3SCARD 03-29 01:28 → 2SICU 03-30 09:30 → 3SCARD 04-08 14:07
PROVIDERS: ADMIT Internal Medicine Geriatric Medicine; ATTEND Internal Medicine Geriatric Medicine
PROC: 0B9L8ZX Drainage of Left Lung, Via Natural or Artificial Opening Endoscopic, Diagnostic (ICD-10-PCS; 2020-03-29 12:00)
PROC: 0W9B30Z Drainage of Left Pleural Cavity with Drainage Device, Percutaneous Approach (ICD-10-PCS; 2020-03-29 12:00)
PROC: 01580ZZ Destruction of Thoracic Nerve, Open Approach (ICD-10-PCS; principal; 2020-03-30 07:13)
PROC: 0BU Respiratory System, Supplement (ICD-10-PCS; principal; 2020-03-30 07:13)
PROC: 0KBJ0ZZ Excision of Left Thorax Muscle, Open Approach (ICD-10-PCS; principal; 2020-03-30 07:13)
PROC: 0BNJ0ZZ Release Left Lower Lung Lobe, Open Approach (ICD-10-PCS; principal; 2020-03-30 07:13)
PROC: 30243N1 Transfusion of Nonautologous Red Blood Cells into Central Vein, Percutaneous Approach (ICD-10-PCS; 2020-04-01)
PROC: 02HV33Z Insertion of Infusion Device into Superior Vena Cava, Percutaneous Approach (ICD-10-PCS; 2020-04-06)
DX: J86.0 Pyothorax with fistula (principal); J94.2 Hemothorax; D62 Acute posthemorrhagic anemia; J94.8 Other specified pleural conditions; J90 Pleural effusion, not elsewhere classified; C34.12 Malignant neoplasm of upper lobe, left bronchus or lung; J98.11 Atelectasis; J44.9 Chronic obstructive pulmonary disease, unspecified; I48.0 Paroxysmal atrial fibrillation; Z20.828 Contact with and (suspected) exposure to other viral communicable diseases; I11.9 Hypertensive heart disease without heart failure; K76.0 Fatty (change of) liver, not elsewhere classified; I95.9 Hypotension, unspecified; T81.82XA Emphysema (subcutaneous) resulting from a procedure, initial encounter; D50.9 Iron deficiency anemia, unspecified; E16.2 Hypoglycemia, unspecified; E78.5 Hyperlipidemia, unspecified; F41.1 Generalized anxiety disorder; F41.0 Panic disorder [episodic paroxysmal anxiety]; R32 Unspecified urinary incontinence; M19.90 Unspecified osteoarthritis, unspecified site; Z79.02 Long term (current) use of antithrombotics/antiplatelets; Z79.811 Long term (current) use of aromatase inhibitors; Z79.899 Other long term (current) drug therapy; Z87.891 Personal history of nicotine dependence; Z90.2 Acquired absence of lung [part of]; Z85.3 Personal history of malignant neoplasm of breast; Z86.79 Personal history of other diseases of the circulatory system; Z90.49 Acquired absence of other specified parts of digestive tract; Z90.12 Acquired absence of left breast and nipple; Z90.710 Acquired absence of both cervix and uterus; Z87.42 Personal history of other diseases of the female genital tract; Z98.42 Cataract extraction status, left eye; Z98.890 Other specified postprocedural states; Z88.6 Allergy status to analgesic agent; Z88.0 Allergy status to penicillin; Z88.7 Allergy status to serum and vaccine; Z88.8 Allergy status to other drugs, medicaments and biological substances; Z88.1 Allergy status to other antibiotic agents; Z80.3 Family history of malignant neoplasm of breast; Z80.8 Family history of malignant neoplasm of other organs or systems; Z82.49 Family history of ischemic heart disease and other diseases of the circulatory system; Z81.8 Family history of other mental and behavioral disorders; Z80.1 Family history of malignant neoplasm of trachea, bronchus and lung
CPT/HCPCS: 31625; 36415; 36573; 71045; 71046; 71250; 71275; 80048; 80053; 80202; 81001; 83615; 83735; 84145; 84484; 85025; 85027; 85379; 85610; 85652; 85730; 86140; 86850; 86900; 86901; 86920; 87070; 87075; 87205; 87635; 88305; 89050; 93005; 93306; 94640; 94760; 96365; 96366; 99291

== ENCOUNTER → 2020-04-24 | Outpatient (CLI) | payer MEDICARE ==
--- NOTE | 2020-04-24 13:44 | XR ---
EXAMINATION TYPE: XR chest 1V DATE OF EXAM: 04/24/2020 COMPARISON: 04/11/2020 INDICATION: Status post lobectomy TECHNIQUE: Single frontal view of the chest is obtained. FINDINGS: The heart size is normal. The pulmonary vasculature is normal. There is a small left pleural effusion which is diminished from comparison. Post surgical change in t he right hilar region and lateral chest. Pneumothorax remains present. 2 left-sided chest tubes are p resent. IMPRESSION: 1. Diminishing small left pleural effusion. 2. Stable postsurgical changes left hemithorax
== END | disposition home or self-care (01) ==
LOC: RADXRMAIN 13:22
PROVIDERS: ATTEND Thoracic Surgery (Cardiothoracic Vascular Surgery)
DX: J90 Pleural effusion, not elsewhere classified (principal); Z98.890 Other specified postprocedural states
CPT/HCPCS: 71045

== ENCOUNTER → 2020-05-01 | Outpatient (CLI) | payer MEDICARE ==
--- NOTE | 2020-05-01 18:59 | XR ---
EXAMINATION TYPE: XR chest 1V DATE OF EXAM: 05/01/2020 COMPARISON: 04/24/2020 HISTORY: 69 year-old female R9 1.8, previous abnormal exam, history of lung cancer and left upper lob ectomy on 03/13/2020. TECHNIQUE: Single frontal view of the chest is obtained. FINDINGS: Demonstrated postsurgical change and 2 pleural catheters on the left. Volume loss in the left hemitho rax with continued small effusion and suspected loculated left apical pneumothorax measuring 5.3 cm, possibly slightly smaller from 6.0 cm, previously. Focal opacity at the peripheral left mid lung may represent loculated pleural fluid and is also unchanged. Right lung and pleural space appear clear. H eart normal size. IMPRESSION: Postsurgical volume loss in the left hemithorax with [address] and continued hydro pneumothorax. Small pleural effusion componentand a probable loculated 5.3 cm apical pneumothorax (sl ightly smaller from 6.0 cm, previously). CT can be considered for more detailed characterization.
== END | disposition home or self-care (01) ==
LOC: RADXRMAIN 12:28
PROVIDERS: ATTEND Thoracic Surgery (Cardiothoracic Vascular Surgery)
DX: J90 Pleural effusion, not elsewhere classified (principal); J94.8 Other specified pleural conditions; Z96.89 Presence of other specified functional implants; Z98.890 Other specified postprocedural states
CPT/HCPCS: 71045

== ENCOUNTER → 2020-05-15 | Outpatient (CLI) | payer MEDICARE ==
--- NOTE | 2020-05-15 12:36 | XR ---
EXAMINATION TYPE: XR chest 1V DATE OF EXAM: 05/15/2020 COMPARISON: 04/23/2020 INDICATION: Pain upper left chest, lung cancer TECHNIQUE: Single frontal view of the chest is obtained. FINDINGS: The heart size is normal. The pulmonary vasculature is normal. Postsurgical changes are within the left suprahilar region. There is post pneumonectomy pneumothorax left apex. Chest tube is been removed. Small left pleural effusion is likely present.. Multiple surgi katie clips are present. IMPRESSION: 1. Residual moderate size pneumothorax left apex post surgery. No increase in size is evident from th e pre-chest tube removal images. 2. Small left pleural effusion
== END | disposition home or self-care (01) ==
LOC: RADXRMAIN 10:34
PROVIDERS: ATTEND Thoracic Surgery (Cardiothoracic Vascular Surgery)
DX: J90 Pleural effusion, not elsewhere classified (principal); J95.811 Postprocedural pneumothorax
CPT/HCPCS: 71045

== ENCOUNTER → 2020-11-27 | Outpatient (CLI) | payer MEDICARE ==
--- NOTE | 2020-11-28 07:58 | ECHOF ---
Referral Reason:R01.1 cardiac murmur MEASUREMENTS -------- HEIGHT: 160.0 cm WEIGHT: 60.3 kg BP: 140/84 RVIDd: 2.8 cm (< 3.3) IVSd: 1.1 cm (0.6 - 1.1) LVIDd: 4.6 cm (3.9 - 5.3) LVPWd: 1.0 cm (0.6 - 1.1) IVSs: 1.4 cm LVIDs: 3.2 cm LVPWs: 1.5 cm LA Diam: 3.2 cm (2.7 - 3.8) Ao Diam: 2.8 cm (2.0 - 3.7) AV Cusp: 1.9 cm (1.5 - 2.6) MV EXCURSION: 16.356 mm (> 18.000) MV EF SLOPE: 119 mm/s (70 - 150) EPSS: 0.6 cm MV E Michael: 0.64 m/s MV DecT: 199 ms MV A Michael: 0.93 m/s MV E/A Ratio: 0.69 RAP: 5.00 mmHg RVSP: 33.18 mmHg FINDINGS -------- Sinus rhythm. This was a technically good study. The left ventricular size is normal. There is borderline concentric left ventricular hypertrophy. Overall left ventricular systolic function is normal with, an EF between 55 - 60 %. The right ventricle is normal in size. Normal LA size by volume 22+/-6 ml/m2. The right atrium is normal in size. Interatrial and interventricular septum intact. There is mild aortic valve sclerosis. The mitral valve leaflets are mildly thickened. There is trace to mild mitral regurgitation. Mild tricuspid regurgitation present. Right ventricular systolic pressure is normal at < 35 mmHg. There is no pulmonic regurgitation present. The aortic root size is normal. Normal inferior vena cava with normal inspiratory collapse consistent with estimated right atrial pre ssure of 5 mmHg. There is no pericardial effusion. CONCLUSIONS -------- 1. The left ventricular size is normal. 2. There is borderline concentric left ventricular hypertrophy. 3. Overall left ventricular systolic function is normal with, an EF between 55 - 60 %. 4. There is mild aortic valve sclerosis. 5. The mitral valve leaflets are mildly thickened. 6. There is trace to mild mitral regurgitation. 7. Mild tricuspid regurgitation present. 8. There is no pulmonic regurgitation present. 9. There is no pericardial effusion. AUTOMATIC MOUNTER: Nancy Courtney RDCS
== END | disposition home or self-care (01) ==
LOC: RADECHMAIN 13:55
PROVIDERS: ATTEND Family Medicine
DX: I08.3 Combined rheumatic disorders of mitral, aortic and tricuspid valves (principal)
CPT/HCPCS: 93306

== ENCOUNTER 2021-07-12 15:07 | Inpatient (IN) | payer MEDICARE ==
[2021-07-12] MEDS ORDERED: SODIUM CHLORIDE 0.9% 500 ML 500 ML IV ONE (16:14)
[2021-07-12 16:15] LABS: Basophils # (A) 0.1 k/uL (0-0.2); Basophils % (A) 1 %; Eosinophils # (A) 0.1 k/uL (0-0.7); Eosinophils % (A) 1 %; HCT 40.9 % (34.0-46.0); HGB 13.6 gm/dL (11.4-16.0); Lymphocytes # (A) 2.4 k/uL (1.0-4.8); Lymphocytes % (A) 15 %; MCH 28.7 pg (25.0-35.0); MCHC 33.2 g/dL (31.0-37.0); MCV 86.4 fL (80.0-100.0); Mean Platelet Volume 6.9; Monocytes # (A) 0.7 k/uL (0-1.0); Monocytes % (A) 4 %; Neutrophils # (A) 11.8 k/uL (1.3-7.7); Neutrophils % (A) 77 %; Platelet Count 533 k/uL (150-450); RBC 4.74 m/uL (3.80-5.40); RDW 14.2 % (11.5-15.5); WBC 15.2 k/uL (3.8-10.6)
[2021-07-12] MEDS ORDERED: ALBUTEROL NEBULIZED (CONC) 5 MG, SODIUM CHLORIDE 0.9% NEBULIZ 3 ML INHALATION STA ×2 (16:15)
[2021-07-12] MEDS ORDERED: IPRATROPIUM-ALBUTEROL 3 ML NEB INHALATION STA (16:15)
[2021-07-12] MEDS ORDERED: methylPREDNISolone SOD SUCCI 125 MG/2 ML VIAL IV STA (16:16)
--- NOTE | 2021-07-12 16:21 | ED ---
SOB HPI - General Chief Complaint: Shortness of Breath Stated Complaint: RICHARD,coughing up blood Time Seen by Provider: 07/12/21 16:01 Source: patient, RN notes reviewed Mode of arrival: wheelchair Limitations: no limitations - History of Present Illness Initial Comments: This is a 71-year-old female with a history of squamous cell carcinoma of the lung. Patient also has a history of breast cancer in 2006 with post mastectomy. Patient had a left upper lobectomy previously for the lung cancer. For the past 2 or 3 weeks patient has had increasing shortness of breath and congestion in her chest. Cough has been productive for sputum. Today the patient started getting hemoptysis. Patient also has a history of hypertension osteomoarthrit is. Patient has been taking budesonide and albuterol home with no relief. There is been no fever. Patient sees Dr. Rao for home and a care. No headache, no fever or chills, no changes in vision or hearing, no sore throat or difficulty with speech, no neck pain, no abdominal pain, no nausea or vomiting, no changes in urination or bowel movements, no numbness or tingling, no extremity pain, no skin rashes or lesions. Patient has no history of DVT or PE MD Complaint: shortness of breath, cough - Related Data Home Medications Medication Instructions Recorded Confirmed Calcium Carbonate [Calcium] 600 mg PO DAILY 07/12/21 07/12/21 Clear Lungs "Herbal Supplement" 1 cap PO DAILY 07/12/21 07/12/21 Magnesium Oxide 400 mg PO DAILY 07/12/21 07/12/21 Parrish-3 With Turmeric 1 cap PO DAILY 07/12/21 07/12/21 Vitamin D3 With Vit K2 1 cap PO DAILY 07/12/21 07/12/21 Vitamin E 400 unit PO DAILY 07/12/21 07/12/21 Zinc 50 mg PO DAILY 07/12/21 07/12/21 Allergies Allergy/AdvReac Type Severity Reaction Status Date / Time aspirin Allergy rectal Verified 07/12/21 19:51 bleeding Penicillins Allergy Anaphylaxis Verified 07/12/21 19:51 tetanus and diphtheria Allergy severe Verified 07/12/21 19:51 toxoids swelling steroids AdvReac severe Uncoded 07/12/21 15:21 muscle pain Review of Systems ROS Statement: Those systems with pertinent positive or pertinent negative responses have been documented in the HPI. ROS Other: All systems not noted in ROS Statement are negative. Past Medical History Past Medical History: Cancer, COPD, Hypertension, Osteoarthritis (OA) Additional Past Medical History / Comment(s): COPD, squamous cell carcinoma of the lung, per his history of breast cancer 2006 post mastectomy. The patient did not require any chemotherapy following that. She also has carotid artery disease and she has undergone previous endarterectomy. Left upper lobectomy 03/2020 History of Any Multi-Drug Resistant Organisms: None Reported Past Surgical History: Breast Surgery, Cholecystectomy, Hysterectomy Additional Past Surgical History / Comment(s): lung bx, cataract surgery,left mastectomy with lymph node dissection,lt carotid endartarectomy, left upper lobectomy 03/23 Past Anesthesia/Blood Transfusion Reactions: No Reported Reaction Additional Past Anesthesia/Blood Transfusion Reaction / Comment(s): states doesn't need much anesthesia to be put under Past Psychological History: Anxiety Smoking Status: Former smoker Past Alcohol Use History: None Reported Past Drug Use History: None Reported - Past Family History Mother Family Medical History: Cancer Additional Family Medical History / Comment(s): Mother at age 76 from breast cancer with metastatic disease to bone and brain. Father Family Medical History: Myocardial Infarction (CA) Additional Family Medical History / Comment(s): Father at age 73 from myocardial infarction. Brother(s) Family Medical History: Myocardial Infarction (CA) Additional Family Medical History / Comment(s): She had 3 brothers and one of them with CA still alive other one is healthy and third one committed suicide. Sister(s) Family Medical History: Cancer, Hypertension Additional Family Medical History / Comment(s): Patient has 3 sisters with hypertension. lung cancer Daughter(s) Family Medical History: No Reported History Additional Family Medical History / Comment(s): Patient has one daughter with no major medical problems. General Exam - General Exam Comments Initial Comments: Patient appears to be in mild distress. Respiratory is 20 breaths per minute as I'm assessing the patient. Patient is found tachycardic at 108 bpm. However, does not appear to be generally ill or toxic. Cranial nerves II through XII grossly intact Limitations: no limitations General appearance: alert, in distress Head exam: Present: atraumatic, normocephalic, normal inspection Eye exam: Present: normal appearance, PERRL, EOMI. Absent: scleral icterus, c onjunctival injection, periorbital swelling ENT exam: Present: normal exam, mucous membranes moist Neck exam: Present: normal inspection, full ROM. Absent: tenderness, meningismus, lymphadenopathy Respiratory exam: Present: wheezes, rhonchi, accessory muscle use (Minimal). Absent: respiratory distress, rales, stridor, chest wall tenderness Cardiovascular Exam: Present: normal rhythm, tachycardia, normal heart sounds. Absent: systolic murmur, diastolic murmur, rubs, gallop, clicks GI/Abdominal exam: Present: soft, normal bowel sounds. Absent: distended, tenderness, guarding, rebound, rigid Extremities exam: Present: normal inspection, full ROM, normal capillary refill. Absent: tenderness, pedal edema, joint swelling, calf tenderness Back exam: Present: normal inspection Neurological exam: Present: alert, oriented X3, CN II-XII intact Psychiatric exam: Present: normal affect, normal mood Skin exam: Present: warm, dry, intact, normal color. Absent: rash Course Vital Signs 07/12/21 07/12/21 07/12/21 15:18 15:58 17:30 Temperature 97.7 F 97.9 F Pulse Rate 121 H 112 H 111 H Respiratory 26 H 14 24 Rate Blood Pressure 162/106 150/101 O2 Sat by Pulse 92 L 98 Oximetry 07/12/21 17:49 Temperature Pulse Rate 115 H Respiratory Rate Blood Pressure O2 Sat by Pulse Oximetry - Reevaluation(s) Reevaluation #1: 07/12/21 19:08 Medical record is reviewed Symptoms are mildly improved here in the emergency department Patient is informed of results and questions answered Patient in no distress Procedures - Sepsis Sepsis Focused Exam #1 Time Sepsis Criteria Met: 17:15 Sepsis Focused Exam Complete: Yes Vital Signs & RN Notes Reviewed: Yes Capillary Refill: < 2 Seconds: Fingers, Toes Peripheral Pulses: Strong: Radial (R), Radial (L), Posterior Tibialis (R), Posterior Tibialis (L), Dorsalis Pedis (R), Dorsalis Pedis (L) Skin Color: Normal for Patient Respiratory Exam: normal lung sounds Cardiovascular Exam: tachycardia Sepsis Focused Exam #2 Sepsis Focused Exam Date: 07/12/21 Sepsis Focused Exam Time: 21:20 Capillary Refill: < 2 Seconds: Fingers, Toes Peripheral Pulses: Strong: Radial (R), Radial (L), Posterior Tibialis (R), Posterior Tibialis (L), Dorsalis Pedis (R), Dorsalis Pedis (L) Skin Color: Normal for Patient Respiratory Exam: wheezes, rhonchi Cardiovascular Exam: tachycardia Medical Decision Making - Medical Decision Making Patient with a history of lung cancer presents with productive cough worsening over the past 2 or 3 weeks. According to the daughter this was starting after an exposure to mold. Recently had a chest x-ray at chiropractors office and was found to have a thoracic compression fracture. Patient has a history of breast cancer as well. This does raise a suspicion of possible pneumonia versus worsening or recurrent lung carcinoma. The spinal compression fracture does raise a possibility of pathological fracture. We'll order a general workup plan for reevaluation. Based on the presentation, pulmonary embolism also within the differential. Note that the patient is tachycardic but has no tachypnea as I'm assessing her in the room. There are adventitious lung sounds with rhonchi and wheezing. Solu-Medrol, albuterol, ipratropium bromide ordered initially. We'll keep the patient on oxygen with a goal of SpO2 between 90 and 95%. The case was discussed in detail with ED attending physician. Presentation, findings, treatment plan discussed in detail. - Lab Data Result diagrams: 07/12/21 15:46 07/12/21 15:46 Lab Results 07/12/21 07/12/21 07/12/21 Range/Units 15:46 15:46 15:46 WBC 15.2 H (3.8-10.6) k/uL RBC 4.74 (3.80-5.40) m/uL Hgb 13.6 (11.4-16.0) gm/dL Hct 40.9 (34.0-46.0) % MCV 86.4 (80.0-100.0) fL MCH 28.7 (25.0-35.0) pg MCHC 33.2 (31.0-37.0) g/dL RDW 14.2 (11.5-15.5) % Plt Count 533 H (150-450) k/uL MPV 6.9 Neutrophils % 77 % Lymphocytes % 15 % Monocytes % 4 % Eosinophils % 1 % Basophils % 1 % Neutrophils # 11.8 H (1.3-7.7) k/uL Lymphocytes # 2.4 (1.0-4.8) k/uL Monocytes # 0.7 (0-1.0) k/uL Eosinophils # 0.1 (0-0.7) k/uL Basophils # 0.1 (0-0.2) k/uL PT 10.9 (9.0-12.0) sec INR 1.0 (<1.2) APTT 24.2 (22.0-30.0) sec D-Dimer 0.47 (<0.60) mg/L FEU Sodium 133 L (137-145) mmol/L Potassium 3.5 (3.5-5.1) mmol/L Chloride 96 L (98-107) mmol/L Carbon Dioxide 25 (22-30) mmol/L Anion Gap 12 mmol/L BUN 12 (7-17) mg/dL Creatinine 0.48 L (0.52-1.04) mg/dL Est GFR (CKD-EPI)AfAm >90 (>60 ml/min/1.73 sqM) Est GFR (CKD-EPI)NonAf >90 (>60 ml/min/1.73 sqM) Glucose 160 H (74-99) mg/dL Plasma Lactic Acid Feng (0.7-2.0) mmol/L Calcium 9.2 (8.4-10.2) mg/dL Total Bilirubin 0.7 (0.2-1.3) mg/dL AST 19 (14-36) U/L ALT 10 (4-34) U/L Alkaline Phosphatase 103 (38-126) U/L Troponin I (0.000-0.034) ng/mL Total Protein 7.4 (6.3-8.2) g/dL Albumin 4.0 (3.5-5.0) g/dL Coronavirus (PCR) (Not Detectd) 07/12/21 07/12/21 07/12/21 Range/Units 15:46 15:46 17:17 WBC (3.8-10.6) k/uL RBC (3.80-5.40) m/uL Hgb (11.4-16.0) gm/dL Hct (34.0-46.0) % MCV (80.0-100.0) fL MCH (25.0-35.0) pg MCHC (31.0-37.0) g/dL RDW (11.5-15.5) % Plt Count (150-450) k/uL MPV Neutrophils % % Lymphocytes % % Monocytes % % Eosinophils % % Basophils % % Neutrophils # (1.3-7.7) k/uL Lymphocytes # (1.0-4.8) k/uL Monocytes # (0-1.0) k/uL Eosinophils # (0-0.7) k/uL Basophils # (0-0.2) k/uL PT (9.0-12.0) sec INR (<1.2) APTT (22.0-30.0) sec D-Dimer (<0.60) mg/L FEU Sodium (137-145) mmol/L Potassium (3.5-5.1) mmol/L Chloride (98-107) mmol/L Carbon Dioxide (22-30) mmol/L Anion Gap mmol/L BUN (7-17) mg/dL Creatinine (0.52-1.04) mg/dL Est GFR (CKD-EPI)AfAm (>60 ml/min/1.73 sqM) Est GFR (CKD-EPI)NonAf (>60 ml/min/1.73 sqM) Glucose (74-99) mg/dL Plasma Lactic Acid Feng 1.9 (0.7-2.0) mmol/L Calcium (8.4-10.2) mg/dL Total Bilirubin (0.2-1.3) mg/dL AST (14-36) U/L ALT (4-34) U/L Alkaline Phosphatase (38-126) U/L Troponin I 0.018 (0.000-0.034) ng/mL Total Protein (6.3-8.2) g/dL Albumin (3.5-5.0) g/dL Coronavirus (PCR) Not Detected (Not Detectd) - EKG Data EKG Comments: EKG shows sinus tachycardia with occasional PVCs. Rate 117. Normal intervals. Critical Care Time Critical Care Time: Yes (Meets sepsis criteria, multifocal pneumonia, multiple re-evaluations) Total Critical Care Time: 40 Critical Care Time: Interpretation diagnostic testing and response to treatment Disposition Clinical Impression: Sepsis, Multifocal pneumonia, Mass of right lung, COPD exacerbation, Cough with hemoptysis Disposition: ADMITTED IP TO THIS HOSP Condition: Fair Time of Disposition: 19:06 Decision to Admit Reason: Admit from EC Decision Date: 07/12/21 Decision Time: 19:06
[2021-07-12 16:23] LABS: Partial Thromboplastin Time 24.2 sec (22.0-30.0); Prothrombin Time 10.9 sec (9.0-12.0)
[2021-07-12 16:38] LABS: ALT 10 U/L (4-34); AST 19 U/L (14-36); African American GFR (CKD) >90 (>60 ml/min/1.73 sqM); Alkaline Phosphatase 103 U/L (38-126); Anion Gap 12 mmol/L; Blood Urea Nitrogen 12 mg/dL (7-17); Calcium 9.2 mg/dL (8.4-10.2); Carbon Dioxide 25 mmol/L (22-30); Chloride 96 mmol/L (98-107); Glucose 160 mg/dL (74-99); Non-African American GFR(CKD) >90 (>60 ml/min/1.73 sqM); Potassium 3.5 mmol/L (3.5-5.1); Sodium 133 mmol/L (137-145); Total Bilirubin 0.7 mg/dL (0.2-1.3); Total Protein 7.4 g/dL (6.3-8.2)
--- NOTE | 2021-07-12 17:43 | XR ---
EXAMINATION TYPE: XR chest 1V portable DATE OF EXAM: 07/12/2021 COMPARISON: 10/27/2020 HISTORY: Cough TECHNIQUE: Single view FINDINGS: There is increased density left pulmonary hilum extending into the left upper lobe. There a re clips at the left axilla. Heart is deviated to the left side. There is coarse interstitial density in the lungs. No obvious heart failure. There slight blunting left costophrenic angle. There is pleu ral thickening at the lung apices. IMPRESSION: Postsurgical changes with a left upper lobectomy. Pleural and pulmonary scarring. Pulmona ry fibrosis. No definite change compared to old exam.
[2021-07-12] MEDS ORDERED: LEVOFLOXACIN 750MG-D5W PMX 750 MG in DEXTROSE/WATER 1 150ML.BAG IVPB STA (18:04)
[2021-07-12] MEDS ORDERED: PNEUMONIA PROTOCOL UTILIZED 1 EACH MISC PO PRN (18:04)
--- NOTE | 2021-07-12 18:58 | CT ---
EXAMINATION TYPE: CT angio chest DATE OF EXAM: 07/12/2021 COMPARISON: 04/01/2020 HISTORY: Shortness of breath, tachycardia and coughing up blood. CT DLP: 199 mGycm Automated exposure control for dose reduction was used. CONTRAST: Performed with IV Contrast, patient injected with 45ml mL of Isovue 370. Images obtained from the thoracic inlet to the diaphragm with IV contrast. There are Three-D postproc essed images. There is some masslike consolidation in the right middle lobe at the right cardiac border that measur es 5 cm. Heart is shifted to the left side. There is increased soft tissue density in the subcarinal region and paratracheal region measuring up to 4 cm in thickness consistent with significant adenopat hy. There is some encasement of the bronchi at the right pulmonary hilum. Heart size is normal. No pe ricardial effusion. There are surgical clips apparently at the superior left pulmonary hilum with lef t upper lobectomy. There is some pleural thickening at the left lung apex. There is a cavitating infiltrate at the right lung apex which measures 4 x 2.5 cm. There is anterior wedging of T9 vertebra 50%. There is no evidence of filling defect in the pulmonary arteries. IMPRESSION: No evidence of pulmonary embolism. Previous left upper lobe surgery. Extensive mediastinal adenopathy consistent with tumor. Masslike consolidation in the right middle lo be suggestive of tumor. Right upper lobe cavitating infiltrate at the apex consistent with tumor. Rig ht side pulmonary density is new compared to old CT scan. Posttreatment changes in the left upper lob e with pleural thickening and volume loss. There is T9 compression fracture which is new compared to old exam.
[2021-07-12] MEDS: SODIUM CHLORIDE 0.9% 1,000 ML IV SCH (19:00)
[2021-07-12] MEDS ORDERED: ALBUTEROL NEBULIZED 2.5 MG/3 ML INHALATION PRN (19:14)
[2021-07-12] MEDS ORDERED: ALBUTEROL NEBULIZED 2.5 MG/3 ML INHALATION SCH (20:00)
[2021-07-12] MEDS: IPRATROPIUM-ALBUTEROL 3 ML NEB INHALATION SCH (23:03)
[2021-07-12] MEDS: methylPREDNISolone SOD SUCCI 125 MG/2 ML VIAL IV SCH (23:52)
[2021-07-13] MEDS: SODIUM CHLORIDE 0.9% 1,000 ML IV SCH ×2 (02:40→09:51)
[2021-07-13] MEDS: methylPREDNISolone SOD SUCCI 125 MG/2 ML VIAL IV SCH (04:42)
[2021-07-13] MEDS: IPRATROPIUM-ALBUTEROL 3 ML NEB INHALATION SCH ×2 (07:21→11:14)
[2021-07-13 08:43] VITALS: TEMP 98.1
[2021-07-13] MEDS ORDERED: LOSARTAN 50 MG TAB PO SCH (11:00)
[2021-07-13] MEDS ORDERED: HEPARIN SODIUM 1,000 UN/ML (10ML VL) IV ONE (11:07)
[2021-07-13] MEDS ORDERED: HEPARIN SODIUM 1,000 UN/ML (10ML VL) IV PRN (11:07)
[2021-07-13] MEDS ORDERED: HEPARIN SOD,PORK IN 0.45% NACL 25,000 UNIT in 0.45% NACL 1 250ML.BAG IV SCH (11:15)
[2021-07-13] MEDS ORDERED: METOPROLOL TARTRATE 25 MG TAB PO SCH (11:15)
--- NOTE | 2021-07-13 11:45 | P.CNPUL ---
History of Present Illness Consult date: 07/13/21 Requesting physician: Aidan Milligan Reason for consult: dyspnea Chief complaint: Progressive dyspnea, cough History of present illness: This is a 71-year-old white female patient who follows with Dr. Santiago in the pulmonary clinic, who presented emergency department on 07/12/2021 with complain ts of progressive dyspnea over a month period of time, coughing, and chest congestion, patient denied any fever. Patient has a known history of COPD, with baseline FEV1 of 72% of predicted not usually on home oxygen according to the PFT from a few years back. Patient carries a [id number] smoking history. Patient has history of squamous cell carcinoma of the lung, with previous history of left upper lobectomy with mediastinal lymph node dissection and repair of the left mainstem bronchus on 03/13/[address] Abdi Robles. This was a robotically assisted thoracoscopic left upper lobectomy. 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 Robles. Patient required long-term IV antibiotics. Patient was last seen by Dr. Santiago in the office on 10/27/2020 and at that time she had no active pulmonary symptoms. She has not returned for re-evaluation in the pulmonary clinic since. She denies getting any other treatment following her left upper lobectomy. At that time she continued to actively smoke. Her chest x-ray during this admission on 07/12/2021 showed postsurgical changes with a left upper lobectomy, pleural and pulmonary scarring, no definite change since her previous chest x-ray on 10/27/2020. Lab work showed elevated white count of 15.2, hemoglobin of 13.6, d-dimer was negative at 0.47, INR was 1.0, sodium is 133, potassium is 3.5, chloride is 96, CO2 is 25, creatinine is 0.48 and BUN is 12. LFTs were within normal limits, troponin is negative at 0.018, COVID-[address] chest was completed showing no evidence of pulmonary embolism, previous left upper lobe surgery, extensive mediastinal adenopathy consistent with tumor, and masslike consolidation in the right middle lobe suggestive of tumor, right upper lobe cavitating infiltrate at the Consistent with tumor. Posttreatment changes in the left upper lobe with pleural thickening and volume loss. And T9 compression fracture which is new compared to old exam. Patient is afebrile, she is on 3 L of oxygen pulse ox of 97%, lung sounds are bronchospastic, she is tachycardic but in sinus mechanism, rate is 115 to 120 BPM. She was started on nebulized bronchodilators, IV steroids and antibiotics. Review of Systems All systems: negative Constitutional: Denies chills, Denies fever Eyes: denies blurred vision, denies pain Ears, nose, mouth and throat: Denies headache, Denies sore throat Cardiovascular: Denies chest pain, Denies shortness of breath Respiratory: Reports congestion, Reports dyspnea, Reports respiratory infections, Reports wheezing, Denies cough Gastrointestinal: Denies abdominal pain, Denies diarrhea, Denies nausea, Denies vomiting Genitourinary: Denies dysuria, Denies hematuria Musculoskeletal: Denies myalgias Integumentary: Denies pruritus, Denies rash Neurological: Denies numbness, Denies weakness Psychiatric: Denies anxiety, Denies depression Endocrine: Denies fatigue, Denies weight change Past Medical History Past Medical History: Cancer, COPD, Hypertension, Osteoarthritis (OA) Additional Past Medical History / Comment(s): COPD, squamous cell carcinoma of the lung, per his history of breast cancer 2006 post mastectomy. The patient di d not require any chemotherapy following that. She also has carotid artery disease and she has undergone previous endarterectomy. Left upper lobectomy 03/2020 History of Any Multi-Drug Resistant Organisms: None Reported Past Surgical History: Breast Surgery, Cholecystectomy, Hysterectomy Additional Past Surgical History / Comment(s): lung bx, cataract surgery,left mastectomy with lymph node dissection,lt carotid endartarectomy, left upper lobectomy 03/23 Past Anesthesia/Blood Transfusion Reactions: No Reported Reaction Additional Past Anesthesia/Blood Transfusion Reaction / Comment(s): states doesn't need much anesthesia to be put under Past Psychological History: Anxiety Smoking Status: Former smoker Past Alcohol Use History: None Reported Past Drug Use History: None Reported - Past Family History Mother Family Medical History: Cancer Additional Family Medical History / Comment(s): Mother at age 76 from breast cancer with metastatic disease to bone and brain. Father Family Medical History: Myocardial Infarction ([place]) Additional Family Medical History / Comment(s): Father at age 73 from myocardial infarction. Brother(s) Family Medical History: Myocardial Infarction ([place]) Additional Family Medical History / Comment(s): She had 3 brothers and one of them with [place] still alive other one is healthy and third one committed suicide. Sister(s) Family Medical History: Cancer, Hypertension Additional Family Medical History / Comment(s): Patient has 3 sisters with hypertension. lung cancer Daughter(s) Family Medical History: No Reported History Additional Family Medical History / Comment(s): Patient has one daughter with no major medical problems. Medications and Allergies Home Medications Medication Instructions Recorded Confirmed Type Calcium Carbonate [Calcium] 600 mg PO DAILY 07/12/21 07/12/21 History Clear Lungs "Herbal Supplement" 1 cap PO DAILY 07/12/21 07/12/21 History Magnesium Oxide 400 mg PO DAILY 07/12/21 07/12/21 History [place]-3 With Turmeric 1 cap PO DAILY 07/12/21 07/12/21 History Vitamin D3 With Vit K2 1 cap PO DAILY 07/12/21 07/12/21 History Vitamin E 400 unit PO DAILY 07/12/21 07/12/21 History Zinc 50 mg PO DAILY 07/12/21 07/12/21 History Losartan [Cozaar] 50 mg PO DAILY #30 tab 07/13/21 Rx Metoprolol Tartrate [Lopressor] 25 mg PO BID #60 tab 07/13/21 Rx Allergies Allergy/AdvReac Type Severity Reaction Status Date / Time aspirin Allergy rectal Verified 07/12/21 19:51 bleeding Penicillins Allergy Anaphylaxis Verified 07/12/21 19:51 tetanus and diphtheria Allergy severe Verified 07/12/21 19:51 toxoids swelling steroids AdvReac severe Uncoded 07/12/21 15:21 muscle pain Physical Exam Vitals: Vital Signs Temp Pulse Resp BP Pulse Ox 07/13/21 10:11 114 H 20 98 07/13/21 08:34 98.1 F 115 H 22 150/102 96 07/13/21 07:32 113 H 07/13/21 07:21 111 H 07/13/21 04:54 118 H 07/13/21 04:45 113 H 07/13/21 04:00 101 H 133/103 94 L 07/13/21 03:00 102 H 129/90 94 L 07/13/21 02:00 102 H 134/98 94 L 07/13/21 01:00 103 H 20 124/89 96 07/12/21 21:52 98.4 F 100 14 121/83 98 07/12/21 19:00 114 H 100/87 94 L 07/12/21 18:00 113 H 140/97 94 L 07/12/21 17:49 115 H 07/12/21 17:30 111 H 24 07/12/21 17:00 98 150/101 94 L 07/12/21 16:00 112 H 96 07/12/21 15:58 97.9 F 112 H 14 150/101 98 07/12/21 15:56 94 L 07/12/21 15:18 97.7 F 121 H 26 H 162/106 92 L Intake and Output 07/12/21 07/13/21 07/13/21 22:59 06:59 14:59 Other: Weight 54.431 kg GENERAL EXAM: Alert, very pleasant, 71-year-old white female, moderately short of breath at rest, wheezing and occasionally coughing, comfortable in no apparent distress. HEAD: Normocephalic/atraumatic. EYES: Normal reaction of pupils, equal size. Conjunctiva pink, sclera white. NOSE: Clear with pink turbinates. THROAT: No erythema or exudates. NECK: No masses, no JVD, no thyroid enlargement, no adenopathy. CHEST: No chest wall deformity. Symmetrical expansion. LUNGS: Equal air entry with diffuse wheezes. CVS: Regular rate and rhythm, normal S1 and S2, no gallops, no murmurs, no rubs ABDOMEN: Soft, nontender. No hepatosplenomegaly, normal bowel sounds, no guarding or rigidity. EXTREMITIES: No clubbing, no edema, no cyanosis, 2+ pulses and upper and lower extremities. MUSCULOSKELETAL: Muscle strength and tone normal. SPINE: No scoliosis or deformity SKIN: No rashes CENTRAL NERVOUS SYSTEM: Alert and oriented -3. No focal deficits, tone is normal in all 4 extremities. PSYCHIATRIC: Alert and oriented -3. Appropriate affect. Intact judgment and insight. Results - Laboratory Findings CBC and BMP: 07/12/21 15:46 07/12/21 15:46 PT/INR, D-dimer PT 10.9 sec (9.0-12.0) 07/12/21 15:46 INR 1.0 (<1.2) 07/12/21 15:46 D-Dimer 0.47 mg/L FEU (<0.60) 07/12/21 15:46 Abnormal lab findings: Abnormal Labs 07/12/21 04 15:46 15:46 WBC 15.2 H Plt Count 533 H Neutrophils # 11.8 H Sodium 133 L Chloride 96 L Creatinine 0.48 L Glucose 160 H - Diagnostic Findings Chest x-ray: report reviewed, image reviewed CT scan - chest: report reviewed, image reviewed Additional studies: EKG reviewed showing sinus tachycardia with occasional PVCs with a rate of 117 bpm Assessment and Plan Plan: Assessment: #1. Acute hypoxic respiratory failure related to acute exacerbation of COPD, suspect recurrence of lung cancer, and possibility of postobstructive pneumonia. COVID-19 PCR was negative. CTA chest was negative for pulmonary embolism. #2. Right middle lobe masslike consolidation suggestive of tumor, right upper lobe cavitating infiltrate, consistent with tumor, and extensive mediastinal adenopathy, lung cancer recurrence is highly suspected with possibility of postobstructive pneumonia #3. History of squamous cell lung carcinoma in 2019, status post left upper lobectomy with mediastinal lymph node dissection and repair of left mainstem bronchus in March 2020 #4. History of left lung empyema and bronchopleural fistula following left upper lobectomy, status post left exploratory thoracotomy, latissimus muscle flap, repair of bronchopleural fistula, and decortication in March 2020 #5. Extensive history of smoking, patient carries a 40+ years of smoking #6. COPD, with baseline FEV1 of 72% of predicted, not on home oxygen #7. Hypertension #8. Osteoarthritis #9. History of carotid artery disease with previous endarterectomy #10. History of breast cancer post left-sided mastectomy and chemotherapy, in remission #11. Generalized anxiety Plan: We discussed the findings of the CTA chest with the patient and the daughter We discussed high suspicion for recurrence of lung cancer The daughter and the patient would like to continue with medical treatment right now Patient and the daughter seem to be quite resistant to the idea of bronchoscopy for diagnostic reasons, and the daughter seems to be angry Patient will need intubation for the procedure, At this time we'll continue with medical treatment with antibiotics broncho dilators and steroids If the diagnosis of lung cancer recurrence is confirmed patient is not a surgi katie candidate Overall prognosis is extremely guarded She was offered to get another opinion at the tertiary care facility, for now continue current medical treatment I have personally seen and examined the patient, performed the documentation and the assessment and plan as written. Number of minutes spent on the visit: [15] Time with Patient: Greater than 30
--- NOTE | 2021-07-13 11:49 | P.HPIM ---
History of Present Illness H&P Date: 07/13/21 HISTORY AND PHYSICAL AND DISCHARGE SUMMARY: HISTORY OF PRESENT ILLNESS This is a 71-year-old female patient of Dr. Mcclain with past medical history of COPD, hypertension, hyperlipidemia, paroxysmal atrial fibrillation, history of empyema left-sided status post bronchoscopy and left-sided chest tube with exploratory thoracotomy and cryoablation of the intercostal nerve of L26, bronchopleural fistula closure, squamous cell cancer of the left upper lobe status post robotic-assisted left upper lobectomy 03/2020, peripheral artery disease status post left carotid endarterectomy, left-sided breast cancer status post mastectomy and chemotherapy in 2010, generalized anxiety disorder and panic attacks. Patient follows with Dr. Santiago and she states she is now 1 appoi ntment per year evaluation. She denies having home oxygen. Patient developed shortness of breath and wheezing as well as cough with bloody sputum production. Daughter states she brought up about 5 tablespoons of blood over the day yesterday. Sudden onset of symptoms yesterday. She denies any fever or chills. Daughter brings up exposure to mold while they were visiting but exposure was limited to only while she was taking a shower and etc. Note the patient has been off of her prescribed medications as she wanted to treat with supplements only. Patient afebrile, heart rate 120s, respiratory rate 26, blood pressure initially 162/106, pulse ox 92% on room air. Initial EKG sinus tachycardia. Repeat EKG atrial fibrillation with RVR. WBC 15.2, hemoglobin 13.6, platelet count 533. D-dimer 0.47. INR 1.0. Sodium 133, potassium 3.5, chloride 96, CO2 25, BUN 12 and creatinine 0.48. Lactic acid 1.9. Liver function tests were normal. Troponin 0.018. Coronavirus PCR not detected. CTA of the chest showed no evidence of pallor embolism. Previous left upper lobe surgery. Extensive mediastinal adenopathy consistent with tumor. Masslike consolidation in the right middle lobe suggestive tumor. Right upper lobe cavitating infiltrate at the apex consistent with tumor. Right side pulmonary density is new. Posttreatment changes in the left upper lobe with pleural thickening and volume loss. There is T9 compression fracture which is new. Study was compared to CT 04/01/2020. Chest x-ray reveals postsurgical changes with left upper lobectomy. Pleural pulmonary scarring. Pulmonary fibrosis. Patient started on IV Solu-Medrol, IV Levaquin and consult with pulmonary medicine. REVIEW OF SYSTEMS Constitutional: No fever, no chills, no night sweats. No weight change. No weakness, fatigue or lethargy. No daytime sleepiness. EENT: No headache. No blurred vision or double vision, no loss of vision. No loss of Hearing, no ringing in the ears, no dizziness. No nasal drainage or congestion. No epistaxis. No sore throat. Lungs: No shortness of breath, cough, no sputum production. Reports wheezing. Cardiovascular: No chest pain, no lower extremity edema. No palpitations. No paroxysmal nocturnal dyspnea. No orthopnea. No lightheadedness or dizziness. No syncopal episodes. Abdominal: No abdominal pain. No nausea, vomiting. No diarrhea. No constipation. No bloody or tarry stools. No loss of appetite. Genitourinary: No dysuria, increased frequency, urgency. No urinary retention. Musculoskeletal: No myalgias. No muscle weakness, no gait dysfunction, no frequent falls. No back pain. No neck pain. Integumentary: No wounds, no lesions. No rash or pruritus. No unusual bruising. No change in hair or nails. Neurologic: No aphasia. No facial droop. No change in mentation. No head injury. No headache. No paralysis. No paresthesia. Psychiatric: No depression. No anxiety. No mood swings. Endocrine: No abnormal blood sugars. No weight change. No excessive sweating or thirst. No cold intolerance. SOCIAL HISTORY She was a smoker for 40 years one pack per day and quit 02/24/2020. She denies any alcohol use, illicit drug use. She is a . 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 FAMILY HISTORY Mother at age 76 from breast cancer with metastatic disease to bone and brain. Father at age 73 from myocardial infarction. She had 3 brothers and one of them has history of [place] and still alive. One brother is from suicide. Other brother has hypertension. Patient also has 3 sisters with no major medical problems. Patient has 4 children with no major medical problems. PHYSICAL EXAMINATION Gen: This is a 71-year-old female, resting on the ER stretcher and appears to be somewhat uncomfortable. Daughters at bedside. HEENT: Head is atraumatic, normocephalic. Pupils equal, round. Sclerae is anicteric. NECK: Supple. No JVD. No lymphadenopathy. No thyromegaly. LUNGS: Bilateral rhonchi more so on the right. No intercostal retractions. HEART: Regular rate and rhythm. No murmur. Tachycardic. ABDOMEN: Soft. Bowel sounds are present. No masses. No tenderness. EXTREMITIES: No pedal edema. No calf tenderness. NEUROLOGICAL: Patient is awake, alert and oriented x3. Cranial nerves 2 through 12 are grossly intact. ASSESSMENT AND PLAN 1. Hemoptysis secondary to advanced lung cancer with masses in the right middle lobe, right upper lobe and apex with previous left upper lobectomy due to lung cancer. 2. History of squamous cell cancer of the left upper lobe status post robotic- assisted left upper lobectomy in 03/2020. 3. Pathologic compression fracture T9 with suspected metastatic disease. 4. Atrial tachycardia converted to A. fib with RVR with history of paroxysmal atrial fibrillation. 5. Uncontrolled hypertension. 6. Sepsis or SIRS secondary to advanced lung cancer and possible underlying gram-negative pneumonia cannot be ruled out. 7. History of empyema on the left chest with bronchopleural fistula status post bronchoscopy with left chest tube placement with post exploratory thoracotomy with cryoablation of the intercostal nerve of L2 through 6. Reinforcement of bronchopleural fistula closure and modification of the left pleural space. 8. COPD 9. PAD: Post left carotid endarterectomy 10. History of breast cancer post left-sided mastectomy and chemotherapy has been in remission. 11. Hypertension 12. Generalized anxiety disorder and panic attacks. Patient will be admitted to the hospital for a minimum of 1 night stay. DISCHARGE PLAN Home with Hospice. Greater than 35 minutes was utilized and coordinating patient's discharge. Impression and plan of care have been directed as dictated by the signing physician. Lucy Bee nurse practitioner acting as scribe for signing physician. Past Medical History Past Medical History: Cancer, COPD, Hypertension, Osteoarthritis (OA) Additional Past Medical History / Comment(s): COPD, squamous cell carcinoma of the lung, per his history of breast cancer 2006 post mastectomy. The patient did not require any chemotherapy following that. She also has carotid artery disease and she has undergone previous endarterectomy. Left upper lobectomy 03/2020 History of Any Multi-Drug Resistant Organisms: None Reported Past Surgical History: Breast Surgery, Cholecystectomy, Hysterectomy Additional Past Surgical History / Comment(s): lung bx, cataract surgery,left mastectomy with lymph node dissection,lt carotid endartarectomy, left upper lobectomy 03/23 Past Anesthesia/Blood Transfusion Reactions: No Reported Reaction Additional Past Anesthesia/Blood Transfusion Reaction / Comment(s): states doesn't need much anesthesia to be put under Past Psychological History: Anxiety Smoking Status: Former smoker Past Alcohol Use History: None Reported Past Drug Use History: None Reported - Past Family History Mother Family Medical History: Cancer Additional Family Medical History / Comment(s): Mother at age 76 from breast cancer with metastatic disease to bone and brain. Father Family Medical History: Myocardial Infarction ([place]) Additional Family Medical History / Comment(s): Father at age 73 from myocardial infarction. Brother(s) Family Medical History: Myocardial Infarction ([place]) Additional Family Medical History / Comment(s): She had 3 brothers and one of them with [place] still alive other one is healthy and third one committed suicide. Sister(s) Family Medical History: Cancer, Hypertension Additional Family Medical History / Comment(s): Patient has 3 sisters with hypertension. lung cancer Daughter(s) Family Medical History: No Reported History Additional Family Medical History / Comment(s): Patient has one daughter with no major medical problems. Medications and Allergies Home Medications Medication Instructions Recorded Confirmed Type Calcium Carbonate [Calcium] 600 mg PO DAILY 07/12/21 07/12/21 History Clear Lungs "Herbal Supplement" 1 cap PO DAILY 07/12/21 07/12/21 History Magnesium Oxide 400 mg PO DAILY 07/12/21 07/12/21 History [place]-3 With Turmeric 1 cap PO DAILY 07/12/21 07/12/21 History Vitamin D3 With Vit K2 1 cap PO DAILY 07/12/21 07/12/21 History Vitamin E 400 unit PO DAILY 07/12/21 07/12/21 History Zinc 50 mg PO DAILY 07/12/21 07/12/21 History Allergies Allergy/AdvReac Type Severity Reaction Status Date / Time aspirin Allergy rectal Verified 07/12/21 19:51 bleeding Penicillins Allergy Anaphylaxis Verified 07/12/21 19:51 tetanus and diphtheria Allergy severe Verified 07/12/21 19:51 toxoids swelling steroids AdvReac severe Uncoded 07/12/21 15:21 muscle pain Physical Exam Vitals: Vital Signs Temp Pulse Resp BP Pulse Ox 07/13/21 07:32 113 H 07/13/21 07:21 111 H 07/13/21 04:54 118 H 07/13/21 04:45 113 H 07/13/21 04:00 101 H 133/103 94 L 07/13/21 03:00 102 H 129/90 94 L 07/13/21 02:00 102 H 134/98 94 L 07/13/21 01:00 103 H 20 124/89 96 07/12/21 21:52 98.4 F 100 14 121/83 98 07/12/21 19:00 114 H 100/87 94 L 07/12/21 18:00 113 H 140/97 94 L 07/12/21 17:49 115 H 07/12/21 17:30 111 H 24 07/12/21 17:00 98 150/101 94 L 07/12/21 16:00 112 H 96 07/12/21 15:58 97.9 F 112 H 14 150/101 98 07/12/21 15:56 94 L 07/12/21 15:18 97.7 F 121 H 26 H 162/106 92 L Intake and Output 07/12/21 07/13/21 07/13/21 22:59 06:59 14:59 Other: Weight 54.431 kg Results CBC & Chem 7: 07/12/21 15:46 07/12/21 15:46 Labs: Abnormal Lab Results - Last 24 Hours (Table) 07/12/21 07/12/21 Range/Units 15:46 15:46 WBC 15.2 H (3.8-10.6) k/uL Plt Count 533 H (150-450) k/uL Neutrophils # 11.8 H (1.3-7.7) k/uL Sodium 133 L (137-145) mmol/L Chloride 96 L (98-107) mmol/L Creatinine 0.48 L (0.52-1.04) mg/dL Glucose 160 H (74-99) mg/dL
[2021-07-13] MEDS ORDERED: methylPREDNISolone SOD SUCCI 125 MG/2 ML VIAL IV SCH (12:00)
[2021-07-13] MEDS ORDERED: INSULIN ASPART (NovoLOG) 100 UNIT/ML VIAL SQ SCH (12:30)
[2021-07-13 13:19] VITALS: BP 114/85; PULSE 104; RESP 18
[2021-07-13] MEDS ORDERED: LEVOFLOXACIN 750 MG TAB PO SCH (18:00)
[2021-07-13] MEDS ORDERED: LEVOFLOXACIN 750MG-D5W PMX 750 MG in DEXTROSE/WATER 1 150ML.BAG IVPB SCH (18:00)
[2021-07-13] MEDS ORDERED: FORMOTEROL FUMARATE 20 MCG/2 ML NEBU INHALATION SCH (20:00)
[2021-07-13] MEDS ORDERED: BUDESONIDE 1 MG/2 ML NEBU INHALATION SCH (20:00)
== END 2021-07-13 13:17 | disposition home or self-care (01) | DRG 871 ==
LOC: EC 15:07 → 3SCARD 18:18
PROVIDERS: ADMIT Family Medicine; ATTEND Family Medicine
PROC: 3E0F7SF Introduction of Other Gas into Respiratory Tract, Via Natural or Artificial Opening (ICD-10-PCS; principal; 2021-07-12)
DX: A41.9 Sepsis, unspecified organism (principal); J96.01 Acute respiratory failure with hypoxia; J15.6 Pneumonia due to other Gram-negative bacteria; C34.11 Malignant neoplasm of upper lobe, right bronchus or lung; I47.1 Supraventricular tachycardia; Z20.822 Contact with and (suspected) exposure to COVID-19; J44.0 Chronic obstructive pulmonary disease with (acute) lower respiratory infection; J44.1 Chronic obstructive pulmonary disease with (acute) exacerbation; R04.2 Hemoptysis; C79.51 Secondary malignant neoplasm of bone; M84.58XA Pathological fracture in neoplastic disease, other specified site, initial encounter for fracture; E78.5 Hyperlipidemia, unspecified; F41.0 Panic disorder [episodic paroxysmal anxiety]; F41.1 Generalized anxiety disorder; I10 Essential (primary) hypertension; I48.0 Paroxysmal atrial fibrillation; I73.9 Peripheral vascular disease, unspecified; J84.10 Pulmonary fibrosis, unspecified; M19.90 Unspecified osteoarthritis, unspecified site; Z79.899 Other long term (current) drug therapy; Z80.1 Family history of malignant neoplasm of trachea, bronchus and lung; Z82.49 Family history of ischemic heart disease and other diseases of the circulatory system; Z85.118 Personal history of other malignant neoplasm of bronchus and lung; Z85.3 Personal history of malignant neoplasm of breast; Z87.891 Personal history of nicotine dependence; Z90.12 Acquired absence of left breast and nipple; Z90.2 Acquired absence of lung [part of]; Z90.710 Acquired absence of both cervix and uterus; Z92.21 Personal history of antineoplastic chemotherapy; Z88.0 Allergy status to penicillin; Z88.7 Allergy status to serum and vaccine; Z88.6 Allergy status to analgesic agent; Z90.49 Acquired absence of other specified parts of digestive tract; Z98.42 Cataract extraction status, left eye; Z98.41 Cataract extraction status, right eye
CPT/HCPCS: 36415; 71045; 71275; 80053; 83605; 84484; 85025; 85379; 85610; 85730; 87040; 87635; 93005; 94640; 96361; 96365; 96366; 96375; 96376; 99291